=== PATIENT | female | born 1950 | race Hispanic/Latino ===

== ENCOUNTER 2018-11-25 16:58 | Emergency (ER) | payer OTHER ==
--- OUTSIDE RECORDS SUMMARY | 2018-11-25 17:00 | XMS REPORT ---
:1950 [facility] Address [address] [place] [address] Dr. Arguello [address] [place] [id number] Care Team Providers Name Role Phone Unavailable Unavailable Unavailable Problems This patient has no known problems. Allergies, Adverse Reactions, Alerts This patient has no known allergies or adverse reactions. Medications This patient has no known medications.
[2018-11-25 18:12] LABS: Basophils % 1.3 % (0-1.3); Hematocrit 34.9 % (36.0-45.0); Lymphocytes % 25.4 % (15.3-44.8); MPV 8.4 fL (7.6-11.3); RBC Red Blood Cell Count 3.72 M/uL (3.86-4.86)
--- NOTE | 2018-11-25 18:12 | RAD REPORT ---
EXAM DESCRIPTION: RAD - Chest Single View - 11/25/2018 6:05 pm CLINICAL HISTORY: COUGH Chest pain. COMPARISON: <Comparisons> FINDINGS: Portable technique limits examination quality. The lungs are grossly clear. The heart is normal in size. No displaced fractures.Sternotomy wires. IMPRESSION: No acute intrathoracic process suspected.
[2018-11-25 18:13] LABS: Protime INR 1.21
[2018-11-25 18:27] LABS: Albumin 4.1 g/dL (3.4-5.0); Magnesium 2.9 mg/dL (1.8-2.4)
[2018-11-25 18:28] LABS: Bilirubin Direct 0.2 mg/dL (0-0.2)
[2018-11-25 18:31] LABS: Potassium 5.7 mmol/L (3.5-5.1)
[2018-11-25 18:36] LABS: Bilirubin Total 0.5 mg/dL (0.2-1.0); Protein, Total 7.8 g/dL (6.4-8.2); Troponin (Emerg Dept Use Only) 0.05 ng/mL (0.0-0.045)
--- NOTE | 2018-11-25 18:44 | ER ---
Nurse's Notes [facility] Name: Renetta Dey Age: 68 yrs Sex: Female : 1950 Arrival Date: 11/25/2018 Time: 17:00 Bed 2 Private MD: Diagnosis: Hyperkalemia;Acute kidney failure;Other specified heart block-third;Bradycardia, unspecified;Type 1 diabetes mellitus;Pleural effusion in conditions classified elsewhere Presentation: 11/25 17:14 Presenting complaint: states: "she took a fall onto her bottom a few days ago aa5 and she's been weak since then and not really eating much, and she hasn't had a bowel movement in about 2 or 3 days". Pt states "I hurt all over". Pt reports she takes gabapentin and tramadol for pain. Pt's states "she's been sleeping all day over the last few days". 17:14 Transition of care: patient was not received from another setting of care. aa5 17:14 Acuity: ELEAZAR 2 aa5 17:14 Method Of Arrival: Wheelchair aa5 17:14 Onset of symptoms was November 2018. aa5 17:14 Risk Assessment: Do you want to hurt yourself or someone else? Patient reports no aa5 desire to harm self or others. Care prior to arrival: None. 18:30 Initial Sepsis Screen: Does the patient meet any 2 criteria? No. Patient's initial ph sepsis screen is negative. Does the patient have a suspected source of infection? No. Patient's initial sepsis screen is negative. Historical: - Allergies: 17:16 No Known Allergies; aa5 - PMHx: 17:16 Back pain; Diabetes - IDDM; Hypertension; CVA; aa5 - PSHx: 17:16 CABG; Carotid surgery; femoral surgery; aa5 - Immunization history:: Flu vaccine is not up to date. - Social history:: Smoking status: Patient uses tobacco products, smokes two packs cigarettes per day. - Ebola Screening: : No symptoms or risks identified at this time. Screenin:30 Abuse screen: Denies threats or abuse. Denies injuries from another. Nutritional ph screening: No deficits noted. Tuberculosis screening: No symptoms or risk factors identified. Fall Risk Fall in past 12 months (25 points). No secondary diagnosis (0 pts). IV access (20 points). Ambulatory Aid- None/Bed Rest/Nurse Assist (0 pts). Gait- Weak (10 pts.). Mental Status- Oriented to own ability (0 pts). Total Archer Fall Scale indicates High Risk Score (45 or more points). Fall prevention measures have been instituted. Side Rails Up X 2 Placed Close to Nursing Station Family Present and informed to notify staff if the need to leave the bedside As available patient and family educated on Fall Prevention Program and Strategies. Assessment: 17:45 General: Appears in no apparent distress. uncomfortable, ill, Behavior is calm, ph cooperative, appropriate for age, Denies fever. Pain: Complains of pain in lumbar area and thoracic area and "all over". Neuro: Level of Consciousness is awake, obeys commands, lethargic, Oriented to person, place, time, situation, Reports weakness in "all over". Cardiovascular: Capillary refill < 3 seconds in bilateral fingers Patient's skin is warm and dry. Rhythm is irregular. Respiratory: Airway is patent Respiratory effort is even, unlabored, Respiratory pattern is regular, symmetrical. GI: Reports constipation, Patient currently denies abdominal pain, bloody stool, diarrhea, nausea, vomiting. Derm: Skin is intact, Skin is pale. Musculoskeletal: Circulation, motion, and sensation intact. Range of motion: intact in all extremities. 19:00 General: Appears ill, Behavior is calm, cooperative, appropriate for age. Pain: ea Complains of pain in coccyx. Neuro: Level of Consciousness is awake, alert, obeys commands, Oriented to person, place, time, situation. Cardiovascular: Patient's skin is warm and dry. Respiratory: Airway is patent Respiratory effort is even, unlabored, Respiratory pattern is regular, symmetrical. Derm: Skin is intact, Skin is pale, Skin temperature is warm. Musculoskeletal: Circulation, motion, and sensation intact. 20:50 Reassessment: Patient and/or family updated on plan of care and expected duration. Pain ea level reassessed. Patient is alert, oriented x 3, equal unlabored respirations, skin warm/dry/pink. 21:40 Reassessment: Pt had bowel movement, jamarcus care provided, pt tolerated well. ea 21:50 Reassessment: Patient and/or family updated on plan of care and expected duration. Pain ea level reassessed. Patient is alert, oriented x 3, equal unlabored respirations, skin warm/dry/pink. 22:00 Reassessment: Pt had large bowel movement, jamarcus care provided. ea 22:35 Reassessment: Patient and/or family updated on plan of care and expected duration. Pain ea level reassessed. Patient is alert, oriented x 3, equal unlabored respirations, skin warm/dry/pink. [facility] at facility for transport, report given to [facility]. Pt left via EMS stretcher. Pt tolerating well. Vital Signs: 17:18 BP 113 / 59; Pulse 34; Resp 14 S; Temp 98.7(TE); Pulse Ox 97% on R/A; aa5 18:30 BP 127 / 58; Pulse 34; Resp 16; Pulse Ox 98% on R/A; ph 19:41 BP 121 / 49; Pulse 58; Resp 14; Pulse Ox 98% ; ea 20:00 BP 125 / 60; Pulse 44; Resp 18; Pulse Ox 99% ; tr5 21:00 BP 140 / 57; Pulse 68; Resp 18; Pulse Ox 100% ; tr5 22:25 BP 144 / 65; Pulse 60; Resp 18; Temp 97.6; Pulse Ox 100% on R/A; tr5 ED Course: 17:00 Patient arrived in ED. as 17:14 Arm band placed on. aa5 17:15 EKG completed in triage. Results shown to . aa5 17:18 Triage completed. aa5 17:30 Watson Montgomery MD is Attending Physician. abby 17:33 Lamar Medina, RN is Primary Nurse. ph 17:35 EKG done, by medical laboratory technician. reviewed by Watson Montgomery MD. sm3 18:03 Missed attempt(s): 20 gauge in right antecubital area. Bleeding controlled, band aid iw applied, catheter tip intact. 18:03 Initial lab(s) drawn, by me, sent to lab. Inserted saline lock: 22 gauge in left iw antecubital area, using aseptic technique. Blood collected. 18:22 XRAY Chest (1 view) In Process Unspecified. EDMS 18:30 Patient has correct armband on for positive identification. Bed in low position. Call ph light in reach. Side rails up X2. cardiac monitor on. Pulse ox on. NIBP on. 18:32 Notified ED physician of a critical lab result(s). Potassium=5.7, CO2=14, Cre=14.20. iw 19:26 Hutchinson cath inserted, using sterile technique, 16 Fr., by me, balloon inflated, to ea gravity drainage, urine specimen collected. 20:47 CT Stone Protocol In Process Unspecified. EDMS 22:01 No provider procedures requiring assistance completed. Patient transferred, IV remains ea in place. Administered Medications: 19:30 Drug: D50W 50 ml Route: IVP; Site: left jugular; jd3 20:00 Follow up: Response: No adverse reaction ea 19:30 Drug: NS 0.9% 1000 ml Route: IV; Rate: 1 bolus; Site: left jugular; jd3 21:59 Follow up: Response: No adverse reaction; IV Status: Completed infusion; IV Intake: ea 1000ml 19:31 Drug: Insulin Regular Human 10 units {Co-Signature: adrianna (Ariadna Beckman RN).} Route: IVP; jd3 Site: left jugular; 20:00 Follow up: Response: No adverse reaction ea 19:35 Drug: Calcium Gluconate 1 grams Route: IVPB; Infused Over: 20 mins; Site: left jugular; jd3 21:13 Follow up: Response: No adverse reaction; IV Status: Completed infusion; IV Intake: ea 100ml 19:39 Drug: Sodium Bicarbonate 1 amp Route: IVP; Site: left jugular; jd3 20:00 Follow up: Response: No adverse reaction ea 19:48 Drug: Kayexalate 60 grams Route: PO; jd3 20:00 Follow up: Response: No adverse reaction ea 19:50 Drug: Albuterol - atroVENT (3:1) (2.5 mg - 0.5 mg) 3 ml Route: Nebulizer; jd3 20:15 Follow up: Response: No adverse reaction ea 20:04 Drug: Glucagon 1 mg Route: IVP; Site: left jugular; jd3 22:00 Follow up: Response: No adverse reaction ea 21:30 Drug: NS 0.9% 1000 ml {Note: LEft EJ.} Route: IV; Rate: 125 ml/hr; Site: Other; ea 22:00 Follow up: IV Status: Infusion continued upon transfer ea 21:41 Drug: NS 0.9% 500 ml {Note: left EJ.} Route: IV; Rate: bolus; Site: Other; ea 22:00 Follow up: Response: No adverse reaction; IV Status: Completed infusion; IV Intake: ea 500ml 21:42 Drug: NS 0.9% 1000 ml {Note: left EJ.} Route: IV; Rate: 125 ml/hr; Site: Other; ea 21:58 Follow up: Response: No adverse reaction; IV Status: Infusion continued upon transfer ea Point of Care Testing: Blood Glucose: 18:03 Blood Glucose: 96 mg/dL; iw Ranges: Intake: 21:13 IV: 100ml; Total: 100ml. ea 21:59 IV: 1000ml; Total: 1100ml. ea 22:00 IV: 500ml; Total: 1600ml. ea Outcome: 18:42 ER care complete, transfer ordered by . abby 19:00 Instructed on the need for transfer. ea 22:37 Transferred by ground EMS to [facility], Transfer form completed. ea 22:37 Condition: stable 22:40 Patient left the ED. ea Signatures: Dispatcher [employer] EDWatson Reyes MD MD cha Martinez, Amelia as Williams, Irene, RN RN iw Calderon, Audri RN RN aa5 Lamar Medina RN Ariadna Carr ph RN Dariel Oilvo ea RN RN Lora Smalls Tommie, RN RN tr5 Ariadna Beckman RN, ea Corrections: (The following items were deleted from the chart) 17:26 17:14 Presenting complaint: states: "she took a fall onto her bottom a few days aa5 ago and she's been weak since then and not really eating much, and she hasn't had a bowel movement in about 2 or 3 days". Pt states "I hurt all over". Pt reports she takes gabapentin and tramadol for pain aa5 17:35 17:30 EKG done, 3 3 22:47 22:25 BP 144 / 65; Pulse 60bpm; Resp 18bpm; Pulse Ox 100% RA; tr5 tr5
--- NOTE | 2018-11-25 18:45 | EDPHYS ---
Physician Documentation [facility] Name: Renetta Dey Age: 68 yrs Sex: Female : 1950 Arrival Date: 11/25/2018 Time: 17:00 Bed 2 Private MD: ED Physician Watson Montgomery HPI: 11/25 18:08 This 68 yrs old Female presents to ER via Wheelchair with complaints of abby Weakness. Historical: - Allergies: 17:16 No Known Allergies; aa5 - PMHx: 17:16 Back pain; Diabetes - IDDM; Hypertension; CVA; aa5 - PSHx: 17:16 CABG; Carotid surgery; femoral surgery; aa5 - Immunization history:: Flu vaccine is not up to date. - Social history:: Smoking status: Patient uses tobacco products, smokes two packs cigarettes per day. - Ebola Screening: : No symptoms or risks identified at this time. ROS: 18:12 Constitutional: Negative for fever, chills, and weight loss, Eyes: Negative for injury, abby pain, redness, and discharge, ENT: Negative for injury, pain, and discharge, Neck: Negative for injury, pain, and swelling, Respiratory: Negative for shortness of breath, cough, wheezing, and pleuritic chest pain, Abdomen/GI: Negative for abdominal pain, nausea, vomiting, diarrhea, and constipation, : Negative for injury, bleeding, discharge, and swelling, MS/Extremity: Negative for injury and deformity, Neuro: Negative for headache, weakness, numbness, tingling, and seizure, Psych: Negative for depression, anxiety, suicide ideation, homicidal ideation, and hallucinations, Allergy/Immunology: Negative for hives, rash, and allergies, Endocrine: Negative for neck swelling, polydipsia, polyuria, polyphagia, and marked weight changes. 18:12 Cardiovascular: Positive for orthopnea, palpitations. 18:12 Back: Positive for decreased range of motion, pain at rest, pain with movement, of the thoracic area and lumbar area. 18:12 Skin: Positive for pallor. Exam: 18:12 Constitutional: This is a well developed, well nourished patient who is awake, alert, abby and in no acute distress. Head/Face: Normocephalic, atraumatic. Eyes: Pupils equal round and reactive to light, extra-ocular motions intact. Lids and lashes normal. Conjunctiva and sclera are non-icteric and not injected. Cornea within normal limits. Periorbital areas with no swelling, redness, or edema. ENT: Nares patent. No nasal discharge, no septal abnormalities noted. Tympanic membranes are normal and external auditory canals are clear. Oropharynx with no redness, swelling, or masses, exudates, or evidence of obstruction, uvula midline. Mucous membranes moist. Neck: Trachea midline, no thyromegaly or masses palpated, and no cervical lymphadenopathy. Supple, full range of motion without nuchal rigidity, or vertebral point tenderness. No Meningismus. Chest/axilla: Normal chest wall appearance and motion. Nontender with no deformity. No lesions are appreciated. Respiratory: Lungs have equal breath sounds bilaterally, clear to auscultation and percussion. No rales, rhonchi or wheezes noted. No increased work of breathing, no retractions or nasal flaring. Abdomen/GI: Soft, non-tender, with normal bowel sounds. No distension or tympany. No guarding or rebound. No evidence of tenderness throughout. Back: No spinal tenderness. No costovertebral tenderness. Full range of motion. Female : Normal external genitalia. MS/ Extremity: Pulses equal, no cyanosis. Neurovascular intact. Full, normal range of motion. Neuro: Awake and alert, GCS 15, oriented to person, place, time, and situation. Cranial nerves II-XII grossly intact. Motor strength 5/5 in all extremities. Sensory grossly intact. Cerebellar exam normal. Normal gait. Psych: Awake, alert, with orientation to person, place and time. Behavior, mood, and affect are within normal limits. 18:12 Cardiovascular: Rate: bradycardic, Rhythm: regular, Pulses: Pulses are 4+ in bilateral radial, brachial, femoral, popliteal, posterior tibial and and dorsalis pedis arteries.. Heart sounds: normal, Edema: is not appreciated, JVD: is not appreciated. Vital Signs: 17:18 BP 113 / 59; Pulse 34; Resp 14 S; Temp 98.7(TE); Pulse Ox 97% on R/A; aa5 18:30 BP 127 / 58; Pulse 34; Resp 16; Pulse Ox 98% on R/A; ph 19:41 BP 121 / 49; Pulse 58; Resp 14; Pulse Ox 98% ; ea 20:00 BP 125 / 60; Pulse 44; Resp 18; Pulse Ox 99% ; tr5 21:00 BP 140 / 57; Pulse 68; Resp 18; Pulse Ox 100% ; tr5 22:25 BP 144 / 65; Pulse 60; Resp 18; Temp 97.6; Pulse Ox 100% on R/A; tr5 Procedures: 18:16 Peripheral line: by aseptic technique a peripheral line was placed in the left external abby jugular vein. MDM: 17:30 Patient medically screened. [facility] 18:12 Data reviewed: vital signs, nurses notes, EMS record, lab test result(s), EKG, [facility] radiologic studies, CT scan, plain films. 11/25 17:31 Order name: Basic Metabolic Panel; Complete Time: 18:54 [facility] 11/25 17:31 Order name: CBC with Diff; Complete Time: 18:36 [facility] 11/25 17:31 Order name: LFT's; Complete Time: 18:54 [facility] 11/25 17:31 Order name: Magnesium; Complete Time: 18:54 [facility] 11/25 17:31 Order name: NT PRO-BNP; Complete Time: 18:54 [facility] 11/25 17:31 Order name: PT-INR; Complete Time: 18:36 [facility] 11/25 17:31 Order name: Troponin (emerg Dept Use Only); Complete Time: 18:54 [facility] 11/25 17:31 Order name: XRAY Chest (1 view); Complete Time: 18:36 [facility] 11/25 17:31 Order name: Lipase; Complete Time: 18:54 [facility] 11/25 18:10 Order name: Type And Screen; Complete Time: 19:56 [facility] 11/25 18:56 Order name: ABG; Complete Time: 20:29 [facility] 11/25 20:28 Order name: CT Stone Protocol; Complete Time: 21:08 [facility] 11/25 22:09 Order name: ABO/RH no charge EDMS 11/25 17:31 Order name: EKG; Complete Time: 17:34 [facility] 11/25 17:31 Order name: Cardiac monitoring; Complete Time: 18:10 [facility] 11/25 17:31 Order name: EKG - Nurse/Tech; Complete Time: 18:11 [facility] 11/25 18:10 Order name: EKG; Complete Time: 18:22 [facility] 11/25 18:38 Order name: EKG; Complete Time: 18:40 em1 11/25 17:31 Order name: IV Saline Lock; Complete Time: 18:11 [facility] 11/25 17:31 Order name: Labs collected and sent; Complete Time: 18:11 [facility] 11/25 17:31 Order name: O2 Per Protocol; Complete Time: 18:11 [facility] 11/25 17:31 Order name: O2 Sat Monitoring; Complete Time: 18:11 [facility] 11/25 18:10 Order name: EKG - Nurse/Tech; Complete Time: 18:10 [facility] 11/25 18:38 Order name: EKG - Nurse/Tech; Complete Time: 18:39 em1 11/25 18:40 Order name: Hutchinson; Complete Time: 19:52 [facility] 11/25 20:29 Order name: EKG - Nurse/Tech; Complete Time: 21:13 [facility] Administered Medications: 19:30 Drug: D50W 50 ml Route: IVP; Site: left jugular; jd3 20:00 Follow up: Response: No adverse reaction ea 19:30 Drug: NS 0.9% 1000 ml Route: IV; Rate: 1 bolus; Site: left jugular; jd3 21:59 Follow up: Response: No adverse reaction; IV Status: Completed infusion; IV Intake: ea 1000ml 19:31 Drug: Insulin Regular Human 10 units {Co-Signature: adrianna (Ariadna Beckman RN).} Route: IVP; jd3 Site: left jugular; 20:00 Follow up: Response: No adverse reaction ea 19:35 Drug: Calcium Gluconate 1 grams Route: IVPB; Infused Over: 20 mins; Site: left jugular; jd3 21:13 Follow up: Response: No adverse reaction; IV Status: Completed infusion; IV Intake: ea 100ml 19:39 Drug: Sodium Bicarbonate 1 amp Route: IVP; Site: left jugular; jd3 20:00 Follow up: Response: No adverse reaction ea 19:48 Drug: Kayexalate 60 grams Route: PO; jd3 20:00 Follow up: Response: No adverse reaction ea 19:50 Drug: Albuterol - atroVENT (3:1) (2.5 mg - 0.5 mg) 3 ml Route: Nebulizer; jd3 20:15 Follow up: Response: No adverse reaction ea 20:04 Drug: Glucagon 1 mg Route: IVP; Site: left jugular; jd3 22:00 Follow up: Response: No adverse reaction ea 21:30 Drug: NS 0.9% 1000 ml {Note: LEft EJ.} Route: IV; Rate: 125 ml/hr; Site: Other; ea 22:00 Follow up: IV Status: Infusion continued upon transfer ea 21:41 Drug: NS 0.9% 500 ml {Note: left EJ.} Route: IV; Rate: bolus; Site: Other; ea 22:00 Follow up: Response: No adverse reaction; IV Status: Completed infusion; IV Intake: ea 500ml 21:42 Drug: NS 0.9% 1000 ml {Note: left EJ.} Route: IV; Rate: 125 ml/hr; Site: Other; ea 21:58 Follow up: Response: No adverse reaction; IV Status: Infusion continued upon transfer ea Point of Care Testing: Blood Glucose: 18:03 Blood Glucose: 96 mg/dL; iw Ranges: Critical Glucose Levels:Adult <50 mg/dl or >400 mg/dl <40 mg/dl or >180 mg/dl Disposition: 11/25/18 18:[address] [facility]. Diagnosis are Hyperkalemia, Acute kidney failure, Other specified heart block - third, Bradycardia, unspecified, Type 1 diabetes mellitus, Pleural effusion in conditions classified elsewhere. - Reason for transfer: Higher level of care. - Accepting physician is to [facility]. - Condition is Serious. - Problem is new. - Symptoms have improved. Signatures: Dispatcher [employer] EDWatson Reyes MD MD cha Martinez, Eric em1 Holly Read RN RN aa5 Ariadna Beckman RN RN ea Davies, Jonathon, RN RN jd3 Ariadna Beckman RN, ea Corrections: (The following items were deleted from the chart) 18:57 18:42 11/25/2018 18:[address] [facility]. Diagnosis is abby Hyperkalemia; Acute kidney failure; Other specified heart block - third; Bradycardia, unspecified. Reason for transfer: Higher level of care. Accepting physician is to [facility]. Condition is Serious. Problem is new. Symptoms have improved. [facility] 21:09 18:57 11/25/2018 18:[address] [facility]. Diagnosis is abby Hyperkalemia; Acute kidney failure; Other specified heart block - third; Bradycardia, unspecified; Type 1 diabetes mellitus. Reason for transfer: Higher level of care. Accepting physician is to [facility]. Condition is Serious. Problem is new. Symptoms have improved. abby 22:40 21:09 11/25/2018 18:[address] [facility]. Diagnosis is ea Hyperkalemia; Acute kidney failure; Other specified heart block - third; Bradycardia, unspecified; Type 1 diabetes mellitus; Pleural effusion in conditions classified elsewhere. Reason for transfer: Higher level of care. Accepting physician is to [facility]. Condition is Serious. Problem is new. Symptoms have improved. abby
[2018-11-25] MEDS ORDERED: CALCIUM GLUCONATE 1gm/100 ML NS (4.65 mEq/100mL) IV ONE ×2 (19:00)
[2018-11-25] MEDS ORDERED: INSULIN -REGULAR HUMAN 50 UNIT/0.5 ML ML ONE (19:31)
[2018-11-25] MEDS ORDERED: D50W 25 GM/50 ML SYRINGE IV ONE (19:33)
[2018-11-25] MEDS ORDERED: IPRATROPIUM BROM 0.5MG/2.5ML ONE (19:33)
[2018-11-25] MEDS ORDERED: SOD POLYSTYREN SUL 15 GM/60 ML UCUP ONE (19:33)
[2018-11-25] MEDS ORDERED: ALBUTEROL 2.5 MG/3 ML NEB SOL ONE (19:33)
[2018-11-25] MEDS ORDERED: NA CHLORIDE 0.9% 1,000 ML ONE ×2 (19:34→21:38)
[2018-11-25 19:59] LABS: Arterial Blood Carboxyhemoglob 2.2 % (0-1.5); Blood Gas Oxyhemoglobin 92.7 % (94-97); Blood O2 Saturation 95.8 % (92-98.5)
[2018-11-25] MEDS ORDERED: GLUCAGON 1 MG/VIAL ONE (20:13)
--- NOTE | 2018-11-25 20:52 | RAD REPORT ---
EXAM DESCRIPTION: CT - Stone Protocol - 11/25/2018 8:43 pm CLINICAL HISTORY: Flank pain. Abdominal distention;Flank pain COMPARISON: No comparisons TECHNIQUE: Axial images were obtained without oral or IV contrast. Lack of contrast limits solid org an and vascular assessment. The [id number] spans the entirety of the system partially obscuring uppermost abdomen and lung bases. Coronal reformatted images were obtained and reviewed. All CT scans are performed using dose optimization technique as appropriate and may include automated exposure control or mA/KV adjustment according to patient size. FINDINGS: A small right pleural effusion is noted. Cholecystectomy clips. Imaged portions of the liver and spleen show no suspicious findings on non-contrast imaging. The panc reas and adrenal glands are normal. No pathologic lymphadenopathy in the abdomen or pelvis. No urinary tract stones or obstructive uropathy. No bowel obstruction, free air, free fluid or abscess. Normal appendix noted.Mild fecal retention in the colon. No significant bony abnormality. IMPRESSION: No urinary tract stones or obstructive uropathy. Small right pleural effusion.
[2018-11-25] MEDS ORDERED: NA CHLORIDE 0.9% 500 ML ONE (21:38)
--- NOTE | 2018-11-26 10:39 | EKG ---
Test Date: 2018-11-25 Test Time: 20:58:10 Grocery Buyer: TR MEASUREMENT RESULTS: Intervals: Rate: 67 DC: 240 QRSD: 94 QT: 468 QTc: 494 Caroline: P: 95 DC: 240 QRS: 78 T: 48 INTERPRETIVE STATEMENTS: Sinus rhythm with 1st degree AV block Prolonged QT Abnormal ECG Compared to ECG 11/25/2018 18:11:12 First degree AV block now present Prolonged QT interval now present Atrial fibrillation no longer present ST (T wave) deviation no longer present Electronically Signed On 11-26-18 10:38:14 CDT by Kalpesh Pierson
--- NOTE | 2018-11-26 10:40 | EKG ---
Test Date: 2018-11-25 Test Time: 18:11:12 Computer Scientist: SVETLANA MEASUREMENT RESULTS: Intervals: Rate: 38 CA: QRSD: 92 QT: 562 QTc: 446 [place]: P: CA: QRS: 79 T: 55 INTERPRETIVE STATEMENTS: Atrial fibrillation with slow ventricular response Nonspecific ST abnormality, probably digitalis effect Abnormal ECG Compared to ECG 11/25/2018 17:18:38 Right-axis deviation no longer present ST (T wave) deviation still present Electronically Signed On 11-26-18 10:38:19 CDT by Kalpesh Pierson
--- NOTE | 2018-11-26 10:40 | EKG ---
Test Date: 2018-11-25 Test Time: 17:18:38 Purchasing Administrative Assistant: PRANEETH MEASUREMENT RESULTS: Intervals: Rate: 36 [place]: QRSD: 82 QT: 572 QTc: 442 [place]: P: VA: QRS: 90 T: 69 INTERPRETIVE STATEMENTS: Atrial fibrillation with slow ventricular response Rightward axis Nonspecific ST abnormality Abnormal ECG Compared to ECG 07/04/2007 09:29:08 Right-axis deviation now present Sinus rhythm no longer present ST (T wave) deviation still present Electronically Signed On 11-26-18 10:38:23 CDT by Kalpesh Pierson
== END 2018-11-25 22:40 | disposition short-term general hospital (02) ==
LOC: ER 16:58
PROC: 05HQ33Z Insertion of Infusion Device into Left External Jugular Vein, Percutaneous Approach (ICD-10-PCS; principal; 2018-11-25)
DX: E87.5 Hyperkalemia (principal); I45.5 Other specified heart block; N17.9 Acute kidney failure, unspecified; R00.1 Bradycardia, unspecified; J91.8 Pleural effusion in other conditions classified elsewhere; E10.9 Type 1 diabetes mellitus without complications; I10 Essential (primary) hypertension; F17.210 Nicotine dependence, cigarettes, uncomplicated; Z95.1 Presence of aortocoronary bypass graft
CPT/HCPCS: 36415; 51702; 71045; 74176; 76377; 80048; 80076; 82805; 82962; 83690; 83735; 83880; 84484; 85025; 85610; 86850; 86900; 86901; 93005; 94640; 96361; 96365; 96366; 96375; 99285; J0610; J1610; J7030

== ENCOUNTER 2019-01-13 11:27 | Emergency (ER) | payer OTHER ==
--- OUTSIDE RECORDS SUMMARY | 2019-01-13 11:30 | XMS REPORT | Clinical Summary ---
:1950 Author Organization [facility] Address [address] [place] [address] Care Team Providers Name Role Phone Pcp, No Primary Care Provider Unavailable Allergies No Known Allergies Medications Medication Sig Dispensed Refills Start Date End Date Status cholecalciferol, Take 25,000 0 Active vitamin D3, 50,000 Units by mouth unit Tab once a week. zolpidem (AMBIEN) Take 10 mg by 0 Active 10 mg tablet mouth every night as needed for Insomnia. rosuvastatin Take 20 mg by 0 Active (CRESTOR) 20 MG mouth daily. tablet traMADol (ULTRAM) Take 50 mg by 0 Active 50 mg mouth every 6 tabletIndications: (six) hours as post fall at home needed for Pain. clopidogrel Take 75 mg by 0 Active (PLAVIX) 75 mg mouth daily. tablet amLODIPine Take 1 tablet 30 tablet 11 12/06/2018 Active (NORVASC) 10 MG (10 mg total) 0 tablet by mouth daily. gabapentin Take 0.5 60 tablet 0 12/05/2018 Active (NEURONTIN) 600 MG tablets (300 mg tablet total) by mouth 2 (two) times daily. apixaban (ELIQUIS) Take 1 tablet 60 tablet 1 12/05/2018 Active 5 mg Tab tablet (5 mg total) by mouth 2 (two) times daily. famotidine (PEPCID) Take 1 tablet 60 tablet 0 12/05/2018 Active 20 MG tablet (20 mg total) by mouth 2 (two) times daily. folic Take 1 tablet 30 tablet 0 12/06/2018 Active acid-multivitamins by mouth daily. (NEPHRO-SHU) 0.8 mg Tab tablet levothyroxine Take 1 tablet 30 tablet 1 12/06/2018 Active (SYNTHROID, (25 mcg total) 0 LEVOTHROID) 25 MCG by mouth Every tablet morning on an empty stomach. melatonin 5 mg Tab Take 1 tablet 30 tablet 0 12/05/2018 Active tablet (5 mg total) by mouth nightly. metoprolol Take 1 tablet 60 tablet 1 12/05/2018 Active (LOPRESSOR) 100 MG (100 mg total) 0 tablet by mouth 2 (two) times daily. nystatin Apply topically 30 g 0 12/05/2018 Active (MYCOSTATIN) 2 (two) times 0 100,000 unit/gram daily. ointment gabapentin Take 600 mg by 0 Discontinued (NEURONTIN) 600 MG mouth 3 (three) 9 tablet times daily. nebivolol Take 10 mg by 0 Discontinued (BYSTOLIC) 10 MG mouth daily. 9 tablet metFORMIN Take 1,000 mg 0 Discontinued (GLUCOPHAGE) 1000 by mouth daily 9 MG tablet with breakfast. aspirin 325 MG Take 325 mg by 0 Discontinued tablet mouth daily. 9 candesartan-hydroch Take 0.5 0 Discontinued lorothiazide tablets by 9 (ATACAND HCT) mouth daily. 16-12.5 mg per tablet dronabinol Take 1 capsule 60 capsule 0 12/05/2018 (MARINOL) 5 MG (5 mg total) by 9 capsule mouth 2 (two) times daily for 30 days. Max Daily Amount: 10 mg zinc sulfate Take 1 capsule 10 capsule 0 12/06/2018 (ZINCATE) 220 (50) (220 mg total) 9 mg capsule by mouth daily for 10 days. Active Problems Problem Noted Date Third degree heart block 11/26/2018 Acute renal failure superimposed on chronic kidney disease 11/26/2018 Anuria 11/26/2018 Acute tubular necrosis 11/26/2018 Hyperkalemia 11/26/2018 Metabolic acidemia 11/26/2018 Herpes zoster 11/26/2018 ESRD (end stage renal disease) Encounters Date Type Specialty Care Team Description 11/29/2018 Travel 11/26/2018 Orders Only General Internal Medicine 11/25/2018 - Hospital Encounter Cardiology Arianna Adame Acute renal failure with acute tubular necrosis superimposed on chronic kidney disease, unspecified CKD stage (HCC); 12/05/2018 MD José Herpes zoster without complication; Parminder Calderon Acute cystitis without hematuria; MD José AIN (acute interstitial nephritis); [place], Metabolic acidosis; Jackson Hilario MD Hypothyroidism, unspecified type; Iron deficiency anemia secondary to inadequate dietary iron intake; Atrial fibrillation with RVR (HCC) after 01/12/2018 Immunizations Name Dates Previously Given Next Due Pneumococcal Conjugate (Prevnar) 13-Valent 11/29/2018 Social History Tobacco Use Types Packs/Day Years Used Date Former Smoker 1 1 Quit: 11/22/2018 Smokeless Tobacco: Never Used Tobacco Cessation: Counseling Given: Yes Alcohol Use Drinks/Week oz/Week Comments No Alcohol Habits Answer Date Recorded How often do you have a drink containing alcohol? Never 11/29/2018 How many drinks containing alcohol do you have on a typical Not asked day when you are drinking? How often do you have six or more drinks on one occasion? Not asked Sex Assigned at Date Recorded Not on file Job Start Date Occupation Industry Not on file Not on file Not on file Travel History Travel Start Travel End No recent travel history available. Last Filed Vital Signs Vital Sign Reading Time Taken Blood Pressure 168/72 12/05/2018 3:00 PM CDT Pulse 69 12/05/2018 3:00 PM CDT Temperature 36.9 C (98.4 F) 12/05/2018 3:00 PM CDT Respiratory Rate 20 12/05/2018 3:00 PM CDT Oxygen Saturation 99% 12/05/2018 3:00 PM CDT Inhaled Oxygen Concentration 21% 12/03/2018 2:57 AM CDT Weight 81.3 kg (179 lb 3.7 oz) 12/04/2018 9:20 AM CDT Height 160 cm (5' 3") 11/26/2018 2:15 AM CDT Body Mass Index 31.75 12/04/2018 9:20 AM CDT Plan of Treatment Not on file Procedures Procedure Name Priority Date/Time Associated Comments Diagnosis RHYTHM STRIP - SCAN 12/09/2018 11:22 AM CDT RHYTHM STRIP - SCAN 12/06/2018 11:12 AM CDT POCT-GLUCOSE METER Routine 12/05/2018 12:27 Results for this PM CDT procedure are in the results section. POCT-GLUCOSE METER Routine 12/05/2018 7:26 Results for this AM CDT procedure are in the results section. CBC W/PLT COUNT & AUTO Routine 12/05/2018 5:42 Results for this DIFFERENTIAL AM CDT procedure are in the results section. BASIC METABOLIC PANEL Routine 12/05/2018 5:42 Results for this (7) AM CDT procedure are in the results section. APTT Routine 12/05/2018 5:42 Results for this AM CDT procedure are in the results section. CBC W/PLT COUNT & AUTO Routine 12/05/2018 5:42 Results for this DIFFERENTIAL AM CDT procedure are in the results section. PHOSPHORUS Routine 12/05/2018 5:42 Results for this AM CDT procedure are in the results section. MAGNESIUM Routine 12/05/2018 5:42 Results for this AM CDT procedure are in the results section. POCT-GLUCOSE METER Routine 12/04/2018 9:41 Results for this PM CDT procedure are in the results section. POCT-GLUCOSE METER Routine 12/04/2018 5:58 Results for this PM CDT procedure are in the results section. POCT-GLUCOSE METER Routine 12/04/2018 12:50 Results for this PM CDT procedure are in the results section. POCT-GLUCOSE METER Routine 12/04/2018 8:52 Results for this AM CDT procedure are in the results section. CBC W/PLT COUNT & AUTO Routine 12/04/2018 4:28 Results for this DIFFERENTIAL AM CDT procedure are in the results section. APTT Routine 12/04/2018 4:28 Results for this AM CDT procedure are in the results section. COMPREHENSIVE Routine 12/04/2018 4:28 Results for this METABOLIC PANEL AM CDT procedure are in the results section. CALCIUM, IONIZED Routine 12/04/2018 4:28 Results for this AM CDT procedure are in the results section. CBC W/PLT COUNT & AUTO Routine 12/04/2018 4:28 Results for this DIFFERENTIAL AM CDT procedure are in the results section. PHOSPHORUS Routine 12/04/2018 4:28 Results for this AM CDT procedure are in the results section. MAGNESIUM Routine 12/04/2018 4:28 Results for this AM CDT procedure are in the results section. POCT-GLUCOSE METER Routine 12/03/2018 9:20 Results for this PM CDT procedure are in the results section. POCT-GLUCOSE METER Routine 12/03/2018 6:16 Results for this PM CDT procedure are in the results section. BASIC METABOLIC PANEL Routine 12/03/2018 5:46 Results for this (7) PM CDT procedure are in the results section. POCT-GLUCOSE METER Routine 12/03/2018 9:12 Results for this AM CDT procedure are in the results section. CBC W/PLT COUNT & AUTO Routine 12/03/2018 4:25 Results for this DIFFERENTIAL AM CDT procedure are in the results section. COMPREHENSIVE Routine 12/03/2018 4:25 Results for this METABOLIC PANEL AM CDT procedure are in the results section. CALCIUM, IONIZED Routine 12/03/2018 4:25 Results for this AM CDT procedure are in the results section. CBC W/PLT COUNT & AUTO Routine 12/03/2018 4:25 Results for this DIFFERENTIAL AM CDT procedure are in the results section. PHOSPHORUS Routine 12/03/2018 4:25 Results for this AM CDT procedure are in the results section. MAGNESIUM Routine 12/03/2018 4:25 Results for this AM CDT procedure are in the results section. APTT Routine 12/03/2018 4:25 Results for this AM CDT procedure are in the results section. POCT-GLUCOSE METER Routine 12/02/2018 9:27 Results for this PM CDT procedure are in the results section. BASIC METABOLIC PANEL Routine 12/02/2018 5:36 Results for this (7) PM CDT procedure are in the results section. APTT Routine 12/02/2018 12:28 Results for this PM CDT procedure are in the results section. POCT-GLUCOSE METER Routine 12/02/2018 12:09 Results for this PM CDT procedure are in the results section. CALCIUM, IONIZED Routine 12/02/2018 6:03 Results for this AM CDT procedure are in the results section. CBC W/PLT COUNT & AUTO Routine 12/02/2018 6:02 Results for this DIFFERENTIAL AM CDT procedure are in the results section. APTT Routine 12/02/2018 6:02 Results for this AM CDT procedure are in the results section. COMPREHENSIVE Routine 12/02/2018 6:02 Results for this METABOLIC PANEL AM CDT procedure are in the results section. CBC W/PLT COUNT & AUTO Routine 12/02/2018 6:02 Results for this DIFFERENTIAL AM CDT procedure are in the results section. PHOSPHORUS Routine 12/02/2018 6:02 Results for this AM CDT procedure are in the results section. MAGNESIUM Routine 12/02/2018 6:02 Results for this AM CDT procedure are in the results section. CBC (HEMOGRAM ONLY) Routine 12/02/2018 6:02 Results for this AM CDT procedure are in the results section. APTT Routine 12/01/2018 11:47 Results for this PM CDT procedure are in the results section. POCT-GLUCOSE METER Routine 12/01/2018 9:12 Results for this PM CDT procedure are in the results section. APTT Routine 12/01/2018 5:57 Results for this PM CDT procedure are in the results section. BASIC METABOLIC PANEL Routine 12/01/2018 5:57 Results for this (7) PM CDT procedure are in the results section. POCT-GLUCOSE METER Routine 12/01/2018 5:20 Results for this PM CDT procedure are in the results section. APTT Routine 12/01/2018 11:48 Results for this AM CDT procedure are in the results section. POCT-GLUCOSE METER Routine 12/01/2018 11:40 Results for this AM CDT procedure are in the results section. POCT-GLUCOSE METER Routine 12/01/2018 9:02 Results for this AM CDT procedure are in the results section. CBC W/PLT COUNT & AUTO Routine 12/01/2018 3:37 Results for this DIFFERENTIAL AM CDT procedure are in the results section. COMPREHENSIVE Routine 12/01/2018 3:37 Results for this METABOLIC PANEL AM CDT procedure are in the results section. CALCIUM, IONIZED Routine 12/01/2018 3:37 Results for this AM CDT procedure are in the results section. VITAMIN B12 AND FOLATE Routine 12/01/2018 3:37 Results for this AM CDT procedure are in the results section. CBC W/PLT COUNT & AUTO Routine 12/01/2018 3:37 Results for this DIFFERENTIAL AM CDT procedure are in the results section. PHOSPHORUS Routine 12/01/2018 3:37 Results for this AM CDT procedure are in the results section. MAGNESIUM Routine 12/01/2018 3:37 Results for this AM CDT procedure are in the results section. EOSINOPHIL SMEAR, Routine 12/01/2018 3:37 Results for this URINE AM CDT procedure are in the results section. CREATININE, RANDOM Routine 12/01/2018 3:37 Results for this URINE AM CDT procedure are in the results section. PROTEIN, RANDOM URINE Routine 12/01/2018 3:37 Results for this AM CDT procedure are in the results section. URINALYSIS W/ Routine 12/01/2018 3:37 Results for this MICROSCOPIC AM CDT procedure are in the results section. RPR Routine 12/01/2018 3:36 Results for this AM CDT procedure are in the results section. APTT Routine 12/01/2018 3:36 Results for this AM CDT procedure are in the results section. POCT-GLUCOSE METER Routine 11/30/2018 9:11 Results for this PM CDT procedure are in the results section. POCT-GLUCOSE METER Routine 11/30/2018 6:09 Results for this PM CDT procedure are in the results section. ECG 12-LEAD Routine 11/30/2018 5:38 PM CDT Procedure Note - Interface, External Ris In - 11/30/2018 5:52 PM CDT Ventricular Rate 82 BPM Atrial Rate 82 BPM P-R Interval 142 ms QRS Duration 74 ms Q-T Interval 432 ms QTC Calculation(Bazett) 504 ms P [place] 93 degrees R [place] 69 degrees T [place] 45 degrees Normal sinus rhythm Nonspecific ST and T wave abnormality Abnormal ECG When compared with ECG of 29-NOV-2018 09:35, Sinus rhythm has replaced Atrial fibrillation ECG 12-LEAD Routine 11/30/2018 5:38 PM CDT BASIC METABOLIC PANEL (7) Routine 11/30/2018 5:36 PM CDT POCT-GLUCOSE METER Routine 11/30/2018 1:37 PM CDT POCT-GLUCOSE METER Routine 11/30/2018 8:30 AM CDT B-TYPE NATRIURETIC FACTOR Routine 11/30/2018 1:15 AM CDT Results for this (BNP) procedure are in the results section. CBC W/PLT COUNT & AUTO Routine 11/30/2018 1:14 AM CDT Results for this DIFFERENTIAL procedure are in the results section. COMPREHENSIVE METABOLIC Routine 11/30/2018 1:14 AM CDT Results for this PANEL procedure are in the results section. CALCIUM, IONIZED Routine 11/30/2018 1:14 AM CDT CBC W/PLT COUNT & AUTO Routine 11/30/2018 1:14 AM CDT Results for this DIFFERENTIAL procedure are in the results section. PHOSPHORUS Routine 11/30/2018 1:14 AM CDT MAGNESIUM Routine 11/30/2018 1:14 AM CDT TROPONIN I Routine 11/30/2018 1:14 AM CDT APTT Routine 11/30/2018 1:13 AM CDT POCT-GLUCOSE METER Routine 11/29/2018 9:27 PM CDT ECHOCARDIOGRAM REPORT - SCAN 11/29/2018 9:10 PM CDT TROPONIN I Routine 11/29/2018 6:12 PM CDT POCT-GLUCOSE METER Routine 11/29/2018 5:51 PM CDT BASIC METABOLIC PANEL (7) Routine 11/29/2018 4:44 PM CDT POCT-GLUCOSE METER Routine 11/29/2018 1:00 PM CDT TROPONIN I Routine 11/29/2018 11:27 AM CDT APTT Routine 11/29/2018 11:27 AM CDT ECG 12-LEAD Routine 11/29/2018 9:35 AM CDT Procedure Note - Interface, External Ris In - 11/29/2018 9:51 AM CDT Ventricular Rate 103 BPM Atrial Rate 96 BPM QRS Duration 80 ms Q-T Interval 392 ms QTC Calculation(Bazett) 513 ms R [place] 69 degrees T [place] 164 degrees Atrial fibrillation with rapid ventricular response with premature ventricular or aberrantly conducted complexes Nonspecific ST and T wave abnormality Abnormal ECG When compared with ECG of 28-NOV-2018 03:23, No significant change was found ECG 12-LEAD Routine 11/29/2018 9:35 AM CDT POCT-GLUCOSE METER Routine 11/29/2018 7:35 AM CDT APTT STAT 11/29/2018 4:39 AM CDT CALCIUM, IONIZED Routine 11/29/2018 1:40 AM CDT CBC W/PLT COUNT & AUTO Routine 11/29/2018 1:39 AM CDT Results for this DIFFERENTIAL procedure are in the results section. COMPREHENSIVE METABOLIC Routine 11/29/2018 1:39 AM CDT Results for this PANEL procedure are in the results section. CBC W/PLT COUNT & AUTO Routine 11/29/2018 1:39 AM CDT Results for this DIFFERENTIAL procedure are in the results section. PHOSPHORUS Routine 11/29/2018 1:39 AM CDT MAGNESIUM Routine 11/29/2018 1:39 AM CDT APTT Routine 11/29/2018 1:39 AM CDT POCT-GLUCOSE METER Routine 11/28/2018 8:52 PM CDT POCT-GLUCOSE METER Routine 11/28/2018 8:06 PM CDT APTT Routine 11/28/2018 7:05 PM CDT BASIC METABOLIC PANEL (7) Routine 11/28/2018 4:16 PM CDT POCT-GLUCOSE METER Routine 11/28/2018 1:08 PM CDT APTT Routine 11/28/2018 9:01 AM CDT POCT-GLUCOSE METER Routine 11/28/2018 8:31 AM CDT CBC W/PLT COUNT & AUTO Routine 11/28/2018 3:48 AM CDT Results for this DIFFERENTIAL procedure are in the results section. COMPREHENSIVE METABOLIC Routine 11/28/2018 3:48 AM CDT Results for this PANEL procedure are in the results section. CALCIUM, IONIZED Routine 11/28/2018 3:48 AM CDT CBC W/PLT COUNT & AUTO Routine 11/28/2018 3:48 AM CDT Results for this DIFFERENTIAL procedure are in the results section. PHOSPHORUS Routine 11/28/2018 3:48 AM CDT MAGNESIUM Routine 11/28/2018 3:48 AM CDT ECG 12-LEAD Routine 11/28/2018 3:23 AM CDT Procedure Note - Interface, External Ris In - 11/28/2018 3:41 AM CDT Ventricular Rate 102 BPM Atrial Rate 127 BPM QRS Duration 84 ms Q-T Interval 390 ms QTC Calculation(Bazett) 508 ms R [place] 67 degrees T [place] 179 degrees Atrial fibrillation with rapid ventricular response Nonspecific ST and T wave abnormality Abnormal ECG When compared with ECG of 26-NOV-2018 00:48, Atrial fibrillation has replaced Sinus rhythm Vent. rate has increased BY [address] now depressed in Lateral leads Nonspecific T wave abnormality now evident in Inferior leads T wave inversion now evident in Lateral leads ECG 12-LEAD STAT 11/28/2018 3:23 AM CDT POCT-GLUCOSE METER Routine 11/27/2018 9:55 PM CDT TRANSFUSION SERVICE REPORT 11/27/2018 6:02 PM CDT - SCAN POCT-GLUCOSE METER Routine 11/27/2018 5:56 PM CDT BASIC METABOLIC PANEL (7) Routine 11/27/2018 4:15 PM CDT POCT-GLUCOSE METER Routine 11/27/2018 11:56 AM CDT 2D ECHO W/ DOPPLER Routine 11/27/2018 9:50 AM CDT Results for this (CW/PW/COLOR) procedure are in the results section. POCT-GLUCOSE METER Routine 11/27/2018 4:17 AM CDT CBC W/PLT COUNT & AUTO Routine 11/27/2018 3:43 AM CDT Results for this DIFFERENTIAL procedure are in the results section. T4, FREE Routine 11/27/2018 3:43 AM CDT COMPLEMENT COMPONENT C3 Routine 11/27/2018 3:43 AM CDT COMPLEMENT COMPONENT C4 Routine 11/27/2018 3:43 AM CDT URIC ACID Routine 11/27/2018 3:43 AM CDT TSH/FREE T4 IF INDICATED Routine 11/27/2018 3:43 AM CDT HEPATITIS PANEL, ACUTE Routine 11/27/2018 3:43 AM CDT RETICULOCYTE COUNT Routine 11/27/2018 3:43 AM CDT FERRITIN Routine 11/27/2018 3:43 AM CDT IRON, TIBC, % SAT. (WITHOUT Routine 11/27/2018 3:43 AM CDT Results for this FERRITIN) procedure are in the results section. B-TYPE NATRIURETIC FACTOR Routine 11/27/2018 3:43 AM CDT Results for this (BNP) procedure are in the results section. COMPREHENSIVE METABOLIC Routine 11/27/2018 3:43 AM CDT Results for this PANEL procedure are in the results section. CALCIUM, IONIZED Routine 11/27/2018 3:43 AM CDT PHOSPHORUS Routine 11/27/2018 3:43 AM CDT MAGNESIUM Routine 11/27/2018 3:43 AM CDT CREATINE KINASE (CK) Routine 11/27/2018 3:43 AM CDT CBC W/PLT COUNT & AUTO Routine 11/27/2018 3:43 AM CDT Results for this DIFFERENTIAL procedure are in the results section. BASIC METABOLIC PANEL (7) Routine 11/26/2018 8:07 PM CDT POCT-GLUCOSE METER Routine 11/26/2018 5:29 PM CDT URINE IMMUNOFIXATION, AP Routine 11/26/2018 3:01 PM CDT Results for this RANDOM procedure are in the results section. URINE PROTEIN AP Routine 11/26/2018 3:01 PM CDT Results for this ELECTROPHORESIS, RANDOM procedure are in the results section. EOSINOPHIL SMEAR, URINE Routine 11/26/2018 3:01 PM CDT CREATININE, RANDOM URINE Routine 11/26/2018 3:01 PM CDT PROTEIN, RANDOM URINE Routine 11/26/2018 3:01 PM CDT SODIUM, RANDOM URINE Routine 11/26/2018 3:01 PM CDT URINALYSIS W/ MICROSCOPIC Routine 11/26/2018 3:01 PM CDT ANTI-NEUTROPHIL CYTOPLASMIC Routine 11/26/2018 2:13 PM CDT Results for this AB (ANCA) procedure are in the results section. ANTI-NUCLEAR ANTIBODY (JUAN) Routine 11/26/2018 2:13 PM CDT RHEUMATOID FACTOR AB, Routine 11/26/2018 2:13 PM CDT Results for this REFLEX TO TITER procedure are in the results section. PROTEIN ELECTROPHORESIS, AP Routine 11/26/2018 2:13 PM CDT Results for this SERUM procedure are in the results section. US RENAL COMPLETE STAT 11/26/2018 1:45 PM CDT HEMODIALYSIS INPATIENT Routine 11/26/2018 12:26 PM CDT POCT-GLUCOSE METER Routine 11/26/2018 11:22 AM CDT BASIC METABOLIC PANEL (7) Routine 11/26/2018 11:20 AM CDT URINE CULTURE Routine 11/26/2018 11:20 AM CDT MAGNESIUM Routine 11/26/2018 5:49 AM CDT BASIC METABOLIC PANEL (7) Routine 11/26/2018 5:49 AM CDT BLOOD GAS, VENOUS Routine 11/26/2018 5:49 AM CDT HEPATITIS PANEL, ACUTE Routine 11/26/2018 5:49 AM CDT TROPONIN I Routine 11/26/2018 5:49 AM CDT POCT-GLUCOSE METER Routine 11/26/2018 5:46 AM CDT UREA NITROGEN, RANDOM URINE Routine 11/26/2018 4:41 AM CDT CREATININE, RANDOM URINE Routine 11/26/2018 4:41 AM CDT SODIUM, RANDOM URINE Routine 11/26/2018 4:41 AM CDT URINALYSIS W/ MICROSCOPIC Routine 11/26/2018 4:41 AM CDT XR CHEST 1 VIEW STAT 11/26/2018 3:29 AM CDT Results for this PORTABLE/BEDSIDE procedure are in the results section. FERRITIN Routine 11/26/2018 3:19 AM CDT IRON, TIBC, % SAT. (WITHOUT Routine 11/26/2018 3:19 AM CDT Results for this FERRITIN) procedure are in the results section. PTH, INTACT Routine 11/26/2018 3:19 AM CDT BLOOD GAS, VENOUS Routine 11/26/2018 3:19 AM CDT HIV-1 ANTIGEN WITH HIV-1/2 Routine 11/26/2018 3:19 AM CDT Results for this ANTIBODY procedure are in the results section. ABORH, MANUAL STAT 11/26/2018 1:18 AM CDT XR CHEST 1 VIEW STAT 11/26/2018 1:00 AM CDT Results for this PORTABLE/BEDSIDE procedure are in the results section. LIPID PANEL Routine 11/26/2018 12:58 AM CDT HEMOGLOBIN A1C Routine 11/26/2018 12:58 AM CDT T4, FREE Routine 11/26/2018 12:49 AM CDT TSH/FREE T4 IF INDICATED Routine 11/26/2018 12:49 AM CDT ECG 12-LEAD Routine 11/26/2018 12:48 AM CDT Procedure Note - Interface, External Ris In - 11/26/2018 1:02 AM CDT Ventricular Rate 62 BPM Atrial Rate 62 BPM P-R Interval 216 ms QRS Duration 92 ms Q-T Interval 490 ms QTC Calculation(Bazett) 497 ms P [place] 74 degrees R [place] 76 degrees T [place] 65 degrees Sinus rhythm with 1st degree A-V block Prolonged QT Abnormal ECG No previous ECGs available ECG 12-LEAD STAT 11/26/2018 12:48 AM CDT LACTIC ACID, VENOUS Routine 11/26/2018 12:45 AM CDT CREATINE KINASE (CK) Routine 11/26/2018 12:45 AM CDT PT/APTT Routine 11/26/2018 12:45 AM CDT PROTHROMBIN TIME/INR Routine 11/26/2018 12:45 AM CDT CBC W/PLT COUNT & AUTO Routine 11/26/2018 12:43 AM CDT Results for this DIFFERENTIAL procedure are in the results section. TYPE AND SCREEN, AUTOMATED Routine 11/26/2018 12:43 AM CDT PHOSPHORUS Routine 11/26/2018 12:43 AM CDT MAGNESIUM Routine 11/26/2018 12:43 AM CDT TROPONIN I Routine 11/26/2018 12:43 AM CDT B-TYPE NATRIURETIC FACTOR Routine 11/26/2018 12:43 AM CDT Results for this (BNP) procedure are in the results section. COMPREHENSIVE METABOLIC Routine 11/26/2018 12:43 AM CDT Results for this PANEL procedure are in the results section. CBC W/PLT COUNT & AUTO Routine 11/26/2018 12:43 AM CDT Results for this DIFFERENTIAL procedure are in the results section. after 01/12/2018 Results RHYTHM STRIP - SCAN (12/09/2018 11:22 AM CDT)Only the most recent of2 resultswithin the time period is included. Narrative Performed At POC-Glucose meter (12/05/2018 12:27 PM CDT)Only the most recent of34 resultswithin the time period is included. POC-Glucose Meter 178 (H)Comment: TESTED AT 70 - 110 mg/dL [facility] [address] [place] [address] Specimen Blood Performing Organization Address City/State/Zipcode Phone Number [facility] [address] [place] [address] CENTER CBC with platelet count + automated diff (12/05/2018 5:42 AM CDT)Only the most recent of10 resultswithin the time period is included. WBC 7.6 3.5 - 10.5 K/L [facility] RBC 3.08 (L) 3.93 - 5.22 M/L [facility] Hemoglobin 9.3 (L) 11.2 - 15.7 GM/DL [facility] Hematocrit 30.2 (L) 34.1 - 44.9 % [facility] MCV 98.1 (H) 79.4 - 94.8 fL [facility] MCH 30.2 25.6 - 32.2 pg [facility] MCHC 30.8 (L) 32.2 - 35.5 GM/DL [facility] RDW 14.3 11.7 - 14.4 % [facility] Platelets 299 150 - 450 K/CU MM [facility] MPV 9.7 9.4 - 12.3 fL [facility] nRBC 0 0 - 0 /100 WBC [facility] % Neutros 71 % [facility] % Lymphs 17 % [facility] % Monos 8 % [facility] % Eos 2 % [facility] % Baso 1 % [facility] # Neutros 5.43 1.56 - 6.13 K/L [facility] # Lymphs 1.27 1.18 - 3.74 K/L [facility] # Monos 0.63 (H) 0.24 - 0.36 K/L [facility] # Eos 0.12 0.04 - 0.36 K/L [facility] # Baso 0.07 0.01 - 0.08 K/L [facility] Immature Granulocytes-Relative 1 0 - 1 % [facility] Specimen Blood Performing Organization Address City/[facility] Phone Number [address] [address] CENTER aPTT (12/05/2018 5:42 AM CDT)Only the most recent of15 resultswithin the time period is included. PTT 27.7 22.5 - 36.0 seconds [facility] Specimen Blood Performing Organization Address [facility] [place] [address] CENTER Phosphorus (12/05/2018 5:42 AM CDT)Only the most recent of10 resultswithin the time period is included. Phosphorus 3.4 2.3 - 4.7 mg/dL [facility] Specimen Blood Performing Organization Address City/[facility] [place] [address] [phone] [place] Magnesium (12/05/2018 5:42 AM CDT)Only the most recent of11 resultswithin the time period is included. Magnesium 1.8 1.6 - 2.6 mg/dL [facility] Specimen Blood Performing Organization Address City/[facility] Phone Number [address] [address] [phone] CENTER Basic Metabolic Panel (12/05/2018 5:42 AM CDT)Only the most recent of11 resultswithin the time period is included. Sodium 140 136 - 145 meq/L [facility] Potassium 3.7 3.5 - 5.1 meq/L [facility] Chloride 108 (H) 98 - 107 meq/L [facility] CO2 24 22 - 29 meq/L [facility] BUN 31 (H) 7 - 21 mg/dL [facility] Creatinine 1.96 (H) 0.57 - 1.25 mg/dL [facility] Glucose 139 (H) 70 - 105 mg/dL [facility] Calcium 9.9 8.4 - 10.2 mg/dL [facility] EGFR 25Comment: ESTIMATED GFR IS mL/min/1.73 sq m [facility] NOT ACCURATE [facility] CLEARANCE IN PREDICTING GLOMERULAR FILTRATION RATE. ESTIMATED GFR IS NOT APPLICABLE FOR DIALYSIS PATIENTS. Specimen Blood Performing Organization Address City/State/Zipcode Phone Number [address] [address] [phone] [place] Calcium, Ionized (12/04/2018 4:28 AM CDT)Only the most recent of8 resultswithin the time period is included. Calcium, Ion 1.17 1.12 - 1.27 mmol/L [facility] pH, Blood 7.43 [facility] Specimen Blood Performing Organization Address City/State/Zipcode Phone Number [phone] [place] [address] [phone] [place] Comprehensive metabolic panel (12/04/2018 4:28 AM CDT)Only the most recent of9 resultswithin the time period is included. Protein, Total 6.6 6.0 - 8.3 gm/dL [facility] Albumin 3.9 3.5 - 5.0 g/dL [facility] Alkaline Phosphatase 64 40 - 150 U/L [facility] Total Bilirubin 0.4 0.2 - 1.2 mg/dL [facility] Sodium 139 136 - 145 meq/L [facility] Potassium 3.2 (L) 3.5 - 5.1 meq/L [facility] Chloride 106 98 - 107 meq/L [facility] CO2 24 22 - 29 meq/L [facility] BUN 34 (H) 7 - 21 mg/dL [facility] Creatinine 2.31 (H) 0.57 - 1.25 mg/dL [facility] Glucose 142 (H) 70 - 105 mg/dL [facility] Calcium 9.3 8.4 - 10.2 mg/dL [facility] AST 25 5 - 34 U/L [facility] ALT 29 6 - 55 U/L [facility] EGFR 21Comment: ESTIMATED GFR mL/min/1.73 sq m [facility] IS NOT ACCURATE [facility] CREATININE CLEARANCE IN PREDICTING GLOMERULAR FILTRATION RATE. ESTIMATED GFR IS NOT APPLICABLE FOR DIALYSIS PATIENTS. Specimen Blood Performing Organization Address City/State/Zipcode Phone Number [facility] [address] [place] [address] CENTER CBC (hemogram only) (12/02/2018 6:02 AM CDT) WBC 6.4 3.5 - 10.5 K/L [facility] RBC 2.86 (L) 3.93 - 5.22 M/L [facility] Hemoglobin 8.8 (L) 11.2 - 15.7 GM/DL [facility] Hematocrit 27.7 (L) 34.1 - 44.9 % [facility] MCV 96.9 (H) 79.4 - 94.8 fL [facility] MCH 30.8 25.6 - 32.2 pg [facility] MCHC 31.8 (L) 32.2 - 35.5 GM/DL [facility] RDW 13.9 11.7 - 14.4 % [facility] Platelets 261 150 - 450 K/CU MM [facility] MPV 9.1 (L) 9.4 - 12.3 fL [facility] nRBC 0 0 - 0 /100 WBC [facility] Specimen Blood Performing Organization Address [facility] Phone Number [address] [address] [place] Vitamin B12 and Folate (12/01/2018 3:37 AM CDT) Vitamin B12 455 213 - 816 pg/mL [facility] Folate 9.9 >=7.0 ng/mL [facility] Specimen Blood Performing Organization Address [facility] Phone Number [address] [address] [phone] [place] Protein, random urine (12/01/2018 3:37 AM CDT)Only the most recent of2 resultswithin the time period is included. Protein, Urine 44 (H) 0 - 14 mg/dL [facility] Specimen Urine Performing Organization Address [facility] Phone Number [address] [address] [place] Creatinine, random urine (12/01/2018 3:37 AM CDT)Only the most recent of3 resultswithin the time period is included. Creatinine, Ur 54.1 mg/dL [facility] Specimen Urine Narrative Performed At Reference Range: No Normals [facility] Performing Organization Address [facility] Phone Number [address] [address] CENTER Urinalysis w/Microscopic (12/01/2018 3:37 AM CDT)Only the most recent of3 resultswithin the time period is included. Color, UA Light Yellow [facility] Clarity, UA Clear [facility] Specific [place], UA 1.007 1.001 - 1.035 [facility] pH, UA 8.0 5.0 - 8.0 [facility] Protein, UA 50 mg/dL (A) Negative [facility] Glucose, UA 150 mg/dL (A) Negative [facility] Ketones, UA 10 mg/dL (A) Negative [facility] Bilirubin, UA Negative Negative [facility] Blood, UA Small (A) Negative [facility] Nitrite, UA Negative Negative [facility] Leukocytes, UA Small (A) Negative [facility] Urobilinogen, UA 0.2 0.2 - 1.0 mg/dL [facility] RBC, UA 5 /HPF [facility] WBC, UA 26 /HPF [facility] Bacteria, UA Few [facility] Squam Epithel, UA 2 /HPF [facility] Hyaline Casts, UA 2 /LPF [facility] Crystals, Urine None Seen [facility] Yeast Few [facility] Specimen Source [facility] Specimen Urine Performing Organization Address City/State/Zipcode Phone Number [facility] [address] [place] [address] CENTER Eosinophil smear (12/01/2018 3:37 AM CDT)Only the most recent of2 resultswithin the time period is included. Eosinophil Smear Rare EOS=less than 5% WBCs No EOS seen [facility] seen are EOS (A) [facility] Specimen Urine Performing Organization Address City/State/Zipcode Phone Number [facility] [address] [place] [phone] CENTER RPR (12/01/2018 3:36 AM CDT) RPR Nonreactive Nonreactive [facility] Specimen Blood Performing Organization Address [facility] Phone Number [address] [address] [place] ECG 12 lead (11/30/2018 5:38 PM CDT)Only the most recent of4 resultswithin the time period is included. Specimen Narrative Performed At Ventricular Rate 82 BPM GE MUSE Atrial Rate 82 BPM P-R Interval 142 ms QRS Duration 74 ms Q-T Interval 432 ms QTC Calculation(Bazett) 504 ms P [place] 93 degrees R [place] 69 degrees T [place] 45 degrees Normal sinus rhythm Nonspecific ST and T wave abnormality Abnormal ECG When compared with ECG of 29-NOV-2018 09:35, Sinus rhythm has replaced Atrial fibrillation Confirmed by MD MARCELO PABLO ([id number]) on 12/01/2018 8:28:32 AM Procedure Note Interface, External Ris In - 12/01/2018 8:28 AM CDT Ventricular Rate 82 BPM Atrial Rate 82 BPM P-R Interval 142 ms QRS Duration 74 ms Q-T Interval 432 ms QTC Calculation(Bazett) 504 ms P [place] 93 degrees R [place] 69 degrees T [place] 45 degrees Normal sinus rhythm Nonspecific ST and T wave abnormality Abnormal ECG When compared with ECG of 29-NOV-2018 09:35, Sinus rhythm has replaced Atrial fibrillation Confirmed by MD MARCELO PABLO ([id number]) on 12/01/2018 8:28:32 AM Performing Organization Address [facility] Phone Number GE MUSE B-type Natriuretic Factor (BNP) (11/30/2018 1:15 AM CDT)Only the most recent of3 resultswithin the time period is included. BNP 747 (H) 0 - 100 pg/mL [facility] Specimen Blood Performing Organization Address [facility] Phone Number [address] [phone] CENTER Troponin I (11/30/2018 1:14 AM CDT)Only the most recent of5 resultswithin the time period is included. Troponin I 0.04 (H) 0.00 - 0.03 ng/mL [facility] Specimen Blood Narrative Performed At Troponin I (TnI) levels must be interpreted [facility] in the context of the presenting symptoms and the clinical findings. Elevated TnI levels indicate myocardial damage, but are not specific for ischemic heart disease. Elevated TnI levels are seen in patients with other cardiac conditions (including myocarditis and congestive heart failure), and slight TnI elevations occur in patients with other conditions, including sepsis, renal failure, acidosis, acute neurological disease, and persistent tachyarrhythmia. Performing Organization Address City/State/Zipcode Phone Number [address] [address] CENTER ECHOCARDIOGRAM REPORT - SCAN (11/29/2018 9:10 PM CDT) Narrative Performed At TRANSFUSION SERVICE REPORT - SCAN (11/27/2018 6:02 PM CDT) Narrative Performed At 2D Echo W/Doppler(CW/PW/Color) (11/27/2018 9:50 AM CDT) Ejection Fraction [facility]CHO [facility] Specimen Narrative Performed At Transthoracic Echocardiography Report (TTE) [facility]CHO [facility] [employer] [facility] Demographics Patient Name IVAN DEY Date of Study 11/27/2018 DAVONTE [id number] GenderFemale Visit Number [id number] RaceUnknown [id number] Room Number 1014 Number Date of Birth1950 Referring Physician Arianna Adame Age68 year(s) [employer] Lyle Goss [facility] Dominic Hutton MD Physician Fellow Ezequiel Davila MD Procedure Type of Study TTE procedure:2DECHO W DOPPLER(CW/PW/COLOR) (Routine) Indications:Known or suspected heart failure. Clinical History HGB 9.8 HCT 29.9 % THIRD DEGREE HB, ARF, SEVERE BRADYCARDIA, CAD, CABG, PAD, DM, CVA, SMOKER Height: 63 inches Weight: 88 kg (194 lbs) BSA: 1.91 m^2 BMI: 34.37 kg/m^2 HR: 68 bpm BP: 135/64 mmHg Summary 1. Normal LV size and function. LVEF is > 60%. 2. Diastology: Indeterminate 3. Normal right ventricular systolic function. The right ventricular cavity size is mildly enlarged. 4. No significant valvular heart disease 5. Mild TR. Estimated peak systolic PA pressure is 50-55 mmHg. 6. No pericardial effusion Previous Study No prior exam available for comparison. Signature Findings Left Ventricle The left ventricle is chamber size (by vol index) is normal (female - LVED vol - 29-61ml/m2). Normal LV wall thickness. All of the LV segments contract no rmally . Estimated LVEF by qualitative assessment is normal. LVEF is > 60%.Diastology: Indeterminate Left AtriumLA size is normal (16-34 ml/m2) . Right VentricleNormal right ventricular systolic function. Th e right ventricular cavity size is mildly en larged. Right Atrium RA size is mildly dilated. Aortic Valve Moderate calcific sclerosis without significant st enosis. No AoV regurgitation. Mitral Valve Normal MV structure and function. Tricuspid ValveMild tricuspid regurgitation. Es timated peak systolic PA pressure is 50-55 mmHg . Pulmonic Valve Normal PV structure and function. AortaAortic root size (SInus of Valsalva diameter) is no rmal. Proximal ascending aorta not visualized. PericardiumNo significant pericardial effusion is visualized. IVC/SVC/PA/PV/PleuralThe estimated RA pressure by IVC dynamics 5-10mmHg . Chambers/Structures Left Atrium LA Volume: 57.74 ml LA Area: 21.02 cm^2 LA Vol. Index: 30 ml/m^2 Left Ventricle LVIDd: 4.39 cm LVEDV:112.12 ml LVIDs: 2.85 cm LV Septum Diastolic: 0.93 cm LV PW Diastolic: 1.06 cm LV FS: 35.1 % LVEDV Hylton's:75.24 ml LVESV Hylton's:35.46 ml LVEDVI: 39 ml/m^2 LVEF Hylton's: 52.9 % LVESVI: 19 ml/m^2 LVOT Diameter: 1.82 cm Right Ventricle TAPSE: 1.57 cm Aorta Ao Root S of Melinda.: 3.41 cm Doppler/Quantitative Measurements Mitral Valve MV Peak E-Wave: 1.14 m/sPeak Gradient: 5.18 mmHg Deceleration Time: 126 msec MV Thierry. Peak: Tissue Doppler E' Septal Velocity: 0.06 m/sA' Lateral Velocity: 0.04 m/s E' Lateral Velocity: 0.09 m/s E/E': 12.07 Aortic Valve Peak Velocity: 1.45 m/s Mean Velocity: 1.01 m/s Peak Gradient: 8.41 mmHgMean Gradient: 4.6 mmHg AV Area (continuity): 1.92 cm^2 AV VTI: 34.1 cm AV DVI: 0.74 LVOT Peak Velocity: 0.97 m/s Peak Gradient: 3.79 mmHg Mean Velocity: 0.7 m/sMean Gradient: 2.19 mmHg LVOT Diameter: 1.82 cmLVOT VTI: 25.23 cm LVOT Area: 2.6 cm^2 LVOT SV:65.6 ml LVOT CO: 4.46 l/min LVOT CI: 2.34 l/min/m^2 Tricuspid Valve TR Velocity: 3.34 m/s TR Gradient: 44.51 mmHg Procedure Note Interface, External Ris In - 11/29/2018 11:56 AM CDT Transthoracic Echocardiography Report (TTE) Demographics Patient Name IVAN DEY Date of Study 11/27/2018 DAVONTE Gender Female Visit Number [id number] Race Unknown Room Number 1014 Number Date of 1950 Referring Physician Arianna Adame Age 68 year(s) [employer] Lyle Goss [facility] Interpreting Kris Hutton MD Physician Fellow Ezequiel Davila MD Procedure Type of Study TTE procedure:2DECHO W DOPPLER(CW/PW/COLOR) (Routine) Indications:Known or suspected heart failure. Clinical History HGB 9.8 HCT 29.9 % THIRD DEGREE HB, ARF, SEVERE BRADYCARDIA, CAD, CABG, PAD, DM, CVA, SMOKER Height: 63 inches Weight: 88 kg (194 lbs) BSA: 1.91 m^2 BMI: 34.37 kg/m^2 HR: 68 bpm BP: 135/64 mmHg Summary 1. Normal LV size and function. LVEF is > 60%. 2. Diastology: Indeterminate 3. Normal right ventricular systolic function. The right ventricular cavity size is mildly enlarged. 4. No significant valvular heart disease 5. Mild TR. Estimated peak systolic PA pressure is 50-55 mmHg. 6. No pericardial effusion Previous Study No prior exam available for comparison. Signature Findings Left Ventricle The left ventricle is chamber size (by vol index) is normal (female - LVED vol - 29-61ml/m2). Normal LV wall thickness. All of the LV segments contract normally . Estimated LVEF by qualitative assessment is normal. LVEF is > 60%.Diastology: Indeterminate Left Atrium LA size is normal (16-34 ml/m2) . Right Ventricle Normal right ventricular systolic function. The right ventricular cavity size is mildly enlarged. Right Atrium RA size is mildly dilated. Aortic Valve Moderate calcific sclerosis without significant stenosis. No AoV regurgitation. Mitral Valve Normal MV structure and function. Tricuspid Valve Mild tricuspid regurgitation. Estimated peak systolic PA pressure is 50-55 mmHg . Pulmonic Valve Normal PV structure and function. Aorta Aortic root size (SInus of Valsalva diameter) is normal. Proximal ascending aorta not visualized. Pericardium No significant pericardial effusion is visualized. IVC/SVC/PA/PV/Pleural The estimated RA pressure by IVC dynamics 5-10mmHg . Chambers/Structures Left Atrium LA Volume: 57.74 ml LA Area: 21.02 cm^2 LA Vol. Index: 30 ml/m^2 Left Ventricle LVIDd: 4.39 cm LVEDV:112.12 ml LVIDs: 2.85 cm LV Septum Diastolic: 0.93 cm LV PW Diastolic: 1.06 cm LV FS: 35.1 % LVEDV Hylton's:75.24 ml LVESV Hylton's:35.46 ml LVEDVI: 39 ml/m^2 LVEF Hylton's: 52.9 % LVESVI: 19 ml/m^2 LVOT Diameter: 1.82 cm Right Ventricle TAPSE: 1.57 cm Aorta Ao Root S of Melinda.: 3.41 cm Doppler/Quantitative Measurements Mitral Valve MV Peak E-Wave: 1.14 m/s Peak Gradient: 5.18 mmHg Deceleration Time: 126 msec MV Thierry. Peak: Tissue Doppler E' Septal Velocity: 0.06 m/s A' Lateral Velocity: 0.04 m/s E' Lateral Velocity: 0.09 m/s E/E': 12.07 Aortic Valve Peak Velocity: 1.45 m/s Mean Velocity: 1.01 m/s Peak Gradient: 8.41 mmHg Mean Gradient: 4.6 mmHg AV Area (continuity): 1.92 cm^2 AV VTI: 34.1 cm AV DVI: 0.74 LVOT Peak Velocity: 0.97 m/s Peak Gradient: 3.79 mmHg Mean Velocity: 0.7 m/s Mean Gradient: 2.19 mmHg LVOT Diameter: 1.82 cm LVOT VTI: 25.23 cm LVOT Area: 2.6 cm^2 LVOT SV:65.6 ml LVOT CO: 4.46 l/min LVOT CI: 2.34 l/min/m^2 Tricuspid Valve TR Velocity: 3.34 m/s TR Gradient: 44.51 mmHg Performing Organization Address City/State/Zipcode Phone Number [facility] E[facility] TSH/Free T4 If Indicated (11/27/2018 3:43 AM CDT)Only the most recent of2 resultswithin the time period is included. TSH 8.31 (H) 0.35 - 4.94 uIU/mL [facility] Specimen Blood Performing Organization Address City/[facility] Phone Number [address] [address] CENTER Iron, TIBC, % sat. (without ferritin) (11/27/2018 3:43 AM CDT)Only the most recent of2 resultswithin the time period is included. Iron 23.0 (L) 40.0 - 160.0 ug/dL [facility] TIBC 274 250 - 450 ug/dL [facility] Iron % Saturation 8 (L) 20 - 55 % [facility] Specimen Blood Performing Organization Address [facility] Phone Number [address] [address] [place] Hepatitis panel, acute (11/27/2018 3:43 AM CDT)Only the most recent of2 resultswithin the time period is included. Hep A IgM Nonreactive Nonreactive [facility] Hep B C IgM Nonreactive Nonreactive [facility] Hepatitis C Ab Nonreactive Nonreactive [facility] hepatitis B Surface Ag Nonreactive Nonreactive [facility] Specimen Blood Performing Organization Address [facility] Phone Number [address] [address] CENTER Reticulocyte count (11/27/2018 3:43 AM CDT) % Retic 0.9 0.5 - 1.7 % [facility] Specimen Blood Performing Organization Address [facility] Phone Number [address] [address] [phone] CENTER Complement Component C3 (11/27/2018 3:43 AM CDT) C3 Complement 96 82 - 193 mg/dL [facility] Specimen Blood Performing Organization Address [facility] Phone Number [address] [address] CENTER Complement Component C4 (11/27/2018 3:43 AM CDT) C4 Complement 43 15 - 57 mg/dL [facility] Specimen Blood Performing Organization Address City/[facility] Phone Number [address] [address] CENTER Uric acid (11/27/2018 3:43 AM CDT) Uric Acid 6.2 2.6 - 7.2 mg/dL [facility] Specimen Blood Performing Organization Address [facility] Phone Number [address] [address] [phone] CENTER T4, free (11/27/2018 3:43 AM CDT)Only the most recent of2 resultswithin the time period is included. Free T4 0.57 (L) 0.70 - 1.48 ng/dL [facility] Specimen Blood Performing Organization Address [facility] Phone Number [address] [address] [phone] CENTER Ferritin (11/27/2018 3:43 AM CDT)Only the most recent of2 resultswithin the time period is included. Ferritin 264 5 - 275 ng/mL [facility] Specimen Blood Performing Organization Address [facility] Phone Number [address] [address] [phone] CENTER Creatine Kinase (CK) (11/27/2018 3:43 AM CDT)Only the most recent of2 resultswithin the time period is included. Total CK 546 (H) 29 - 200 U/L [facility] Specimen Blood Performing Organization Address [facility]/Zipcode Phone Number [facility] [address] [place] [phone] [place] Sodium, random urine (11/26/2018 3:01 PM CDT)Only the most recent of2 resultswithin the time period is included. Sodium Urine 89 meq/L [facility] Specimen Urine Narrative Performed At Reference Range: No Normals [facility] Performing Organization Address [facility] Phone Number [address] [address] [phone] [place] Urine Protein Electrophoresis, random (11/26/2018 3:01 PM CDT) Protein, Urine 66 (H) 0 - 14 mg/dL [facility] Albumin %, Urine 38.9 % [facility] Globulin %, Urine 61.1 % [facility] UPEP,ID Indistinct banding in gamma [facility] region. Urine [facility] for further clarification. Pathologist: Cyn Burgos MD [facility] (electronic signature) [facility] Specimen Urine Performing Organization Address [facility]/Zipcode Phone Number [address] [address] [phone] [place] Urine Immunofixation, random (11/26/2018 3:01 PM CDT) Protein, Urine 66 (H) 0 - 14 mg/dL [facility] Albumin %, Urine 38.9 % [facility] Globulin %, Urine 61.1 % [facility] URINE MARKEL ID Non-specific band identified. [facility] No evidence of IGG, IGM, or MEDICAL [facility]ENTER IGA immunoglobulin with light chain restriction. Clinical correlation is recommended. Pathologist: Aaron Hopper MD (electronic [facility] Specimen Urine Performing Organization Address [facility]/Zipcode Phone Number [facility] [address] [place], [place] [phone] [place] Rheumatoid factor Ab, reflex to titer (11/26/2018 2:13 PM CDT) Rheumatoid Factor Negative [facility] Specimen Blood Performing Organization Address [facility] Phone Number [phone] [place], [place] [phone] [place] Anti-Neutrophil Cytoplasmic Ab (ANCA) (11/26/2018 2:13 PM CDT) Proteinase-3 Ab <1.0 <1.0 [facility] Comment: INCORPORATED <1.0 AI No Antibody Detected > or=1.0 AI Antibody Detected Autoantibodies to proteinase-3 (OR-3) are accepted as characteristic for granulomatosis with polyangiitis (GPA, Abhilash's), and are detectable in 95% of the histologically proven cases. The cytoplasmic IFA pattern, (c-ANCA), is based largely on autoantibody to OR-3 which serves as the primary antigen. These autoantibodies are present in active disease. Myeloperoxidase Ab <1.0 <1.0 [facility] Comment: INCORPORATED <1.0 AI No Antibody Detected > or=1.0 AI Antibody Detected Autoantibodies to myeloperoxidase (MPO) are commonly associated with the following small-vessel vasculitides: microscopic polyangiitis, polyarteritis nodosa, Churg-Wilfred syndrome, necrotizing and crescentic glomerulonephritis and occasionally granulomatosis with polyangiitis (GPA, Abhilash's). The perinuclear IFA pattern, (p-ANCA) is based largely on autoantibody to myeloperoxidase which serves as the primary antigen. These autoantibodies are present in active disease. Specimen Blood Narrative Performed At Performing Lab [facility] [employer] [address] [place] [address] Verona Tavarez MD, PhD, DIOGO Performing Organization Address [facility] Phone Number [facility] [address] [facility] [id number] [address] [facility] Anti-Nuclear Antibody (JUAN) (11/26/2018 2:13 PM CDT) JUAN Negative Negative [facility] Specimen Blood Narrative Performed At Test performed by IFA method. [facility] Test performed by IFA method. Performing Organization Address City/[facility]/Zipcode Phone Number [facility] [address] [place] [address] [place] Protein electrophoresis, serum (11/26/2018 2:13 PM CDT) Albumin Fraction 3.2 (L) 3.5 - 5.5 g/dL [facility] Alpha 1 Fraction 0.2 0.2 - 0.4 g/dL [facility] Alpha 2 Fraction 1.0 (H) 0.5 - 0.9 g/dL [facility] Beta Fraction 0.7 0.6 - 1.1 g/dL [facility] Gamma Globulin Fraction 0.7 0.7 - 1.7 g/dL [facility] Interpretation Pattern suggestive of [facility] acute inflammation. No [facility] monoclonal bands detected. Pathologist: Cyn Burgos MD [facility] (electronic signature) [facility] Protein, Total 5.9 (L) 6.0 - 8.3 gm/dL [facility] Specimen Blood Performing Organization Address City/[facility]/Zipcode Phone Number [facility] [address] [place] [address] [phone] CENTER US renal complete (11/26/2018 1:45 PM CDT) Specimen Narrative Performed At FINAL REPORT [employer] TECHNIQUE: Grayscale ultrasound of the kidneys and bladder. INDICATION: 68-year-old woman with renal failure. COMPARISON: None. FINDINGS: RIGHT KIDNEY: The right kidney measures 12.8 x 4.8 x 5 cm. Cortical thickness measures 1.8 cm. No solid mass lesions. No hydronephrosis. Renal artery and vein are patent. LEFT KIDNEY: The left kidney measures 11.9 x 6.1 x 4.6 cm. Cortical thickness measures 2 cm. No solid mass lesions. No hydronephrosis. Renal artery and vein are patent. BLADDER: The bladder is decompressed by Hutchinson catheter. IMPRESSION: Unremarkable renal ultrasound. Signed: Yuriy Lucas MD Report Verified Date/Time:11/26/2018 15:05:19 Reading Location: [address] Radiology Reading Room Procedure Note Interface, External Ris In - 11/26/2018 3:07 PM CDT FINAL REPORT TECHNIQUE: Grayscale ultrasound of the kidneys and bladder. INDICATION: 68-year-old woman with renal failure. COMPARISON: None. FINDINGS: RIGHT KIDNEY: The right kidney measures 12.8 x 4.8 x 5 cm. Cortical thickness measures 1.8 cm. No solid mass lesions. No hydronephrosis. Renal artery and vein are patent. LEFT KIDNEY: The left kidney measures 11.9 x 6.1 x 4.6 cm. Cortical thickness measures 2 cm. No solid mass lesions. No hydronephrosis. Renal artery and vein are patent. BLADDER: The bladder is decompressed by Hutchinson catheter. IMPRESSION: Unremarkable renal ultrasound. Signed: Yuriy Lucas MD Report Verified Date/Time: 11/26/2018 15:05:19 Reading Location: [address] Radiology Reading Room Performing Organization Address City/State/Zipcode Phone Number [facility] Urine culture (11/26/2018 11:20 AM CDT) Result >100,000 col/mL Klebsiella [facility] pneumoniae (A) CENTER Specimen Urine Organism Antibiotic Method Susceptibility Klebsiella pneumoniae Amikacin <=2: Susceptible Klebsiella pneumoniae Ampicillin + Sulbactam 8: Susceptible Klebsiella pneumoniae Aztreonam <=1: Susceptible Klebsiella pneumoniae Cefepime <=1: Susceptible Klebsiella pneumoniae Cefoxitin <=4: Susceptible Klebsiella pneumoniae Ceftazidime <=1: Susceptible Klebsiella pneumoniae Ceftriaxone <=1: Susceptible Klebsiella pneumoniae Ertapenem <=0.5: Susceptible Klebsiella pneumoniae Gentamicin <=1: Susceptible Klebsiella pneumoniae Levofloxacin <=0.12: Susceptible Klebsiella pneumoniae Meropenem <=0.25: Susceptible Klebsiella pneumoniae Nitrofurantoin 64: Intermediate Klebsiella pneumoniae Piperacillin + Tazobactam <=4: Susceptible Klebsiella pneumoniae Tetracycline >=16: Resistant Klebsiella pneumoniae Tobramycin <=1: Susceptible Klebsiella pneumoniae Trimethoprim + Sulfamethoxazole >=320: Resistant Performing Organization Address City/[facility] Phone Number [address] [address] [phone] [place] Blood gas, venous (11/26/2018 5:49 AM CDT)Only the most recent of2 resultswithin the time period is included. pH, [place] 7.27 (L) 7.32 - 7.42 [facility] pCO2, [place] 38 (L) 41 - 51 mmHg [facility] pO2, [place] 48 (H) 25 - 40 mmHg [facility] O2 Sat, [place] 78.4 (H) 40.0 - 70.0 % [facility] HCO3, [place] 17 (L) 21 - 29 mmol/L [facility] Base Excess, [place] -9.2 (L) -2.0 - 3.0 mmol/L [facility] Patient Temperature 37.0 C [facility] FIO2 21.0 % [facility] Specimen Blood Performing Organization Address [facility] Phone Number [address] [address] [place] Urea Nitrogen, random urine (11/26/2018 4:41 AM CDT) Urea Nitrogen, Ur 207 mg/dL [facility] Specimen Urine Narrative Performed At Reference Range: No Normals [facility] Performing Organization Address City/[facility]/Zipcode Phone Number [address] [address] [place] XR chest 1 view portable / bedside (11/26/2018 3:29 AM CDT)Only the most recent of2 resultswithin the time period is included. Specimen Narrative Performed At FINAL REPORT GE RIS RAD, CHEST, 1 VIEW, NON DEPT INDICATION: DIALYSIS CATHTER PLACEMENT COMPARISON: Prior day's exam FINDINGS: Portable frontal view of the chest. IMPRESSION: Support Lines: Interval placement of a right IJ central venous catheter with tip overlying the cavoatrial junction. Lungs and pleura: Unchanged airspace and pleural opacities. No pneumothorax. Heart and mediastinum: Stable contours. Stable surgical changes. Additional findings: None. Signed: Karla Nieves MD Report Verified Date/Time:11/26/2018 04:02:49 Procedure Note Interface, External Ris In - 11/26/2018 4:05 AM CDT FINAL REPORT RAD, CHEST, 1 VIEW, NON DEPT INDICATION: DIALYSIS CATHTER PLACEMENT COMPARISON: Prior day's exam FINDINGS: Portable frontal view of the chest. IMPRESSION: Support Lines: Interval placement of a right IJ central venous catheter with tip overlying the cavoatrial junction. Lungs and pleura: Unchanged airspace and pleural opacities. No pneumothorax. Heart and mediastinum: Stable contours. Stable surgical changes. Additional findings: None. Signed: Karla Nieves MD Report Verified Date/Time: 11/26/2018 04:02:49 Performing Organization Address City/[facility] Phone Number [facility] HIV-1 Antigen with HIV-1/2 Antibody (11/26/2018 3:19 AM CDT) HIV-1 Antigen with HIV 1&2 Nonreactive Nonreactive [facility] Antibody [facility] Specimen Blood Performing Organization Address City/[facility]/Zipcode Phone Number [address] [address] CENTER PTH, intact (11/26/2018 3:19 AM CDT) PTH 375.7 (H) 8.5 - 72.5 pg/mL [facility] Specimen Blood Performing Organization Address City/[facility]/Zipcode Phone Number [address] [place], [place] [id number] CENTER ABORH, manual (11/26/2018 1:18 AM CDT) ABO Grouping O [facility] Rh Factor POS [facility] Specimen Blood Performing Organization Address City/[facility] Phone Number [address] [address] Hemoglobin A1c (11/26/2018 12:58 AM CDT) Hemoglobin A1C 7.2 (H) 4.3 - 6.1 % [facility] Specimen Blood Performing Organization Address [facility] Phone Number [address] [address] [place] Lipid panel (11/26/2018 12:58 AM CDT) Triglycerides 201 mg/dL [facility] Cholesterol 112 mg/dL [facility] HDL 25 mg/dL [facility] LDL Calculated 47 mg/dL [facility] Specimen Blood Narrative Performed At Triglyceride Reference Range: [facility] Low Risk <150 [id number] High Risk 200-499 Very High Risk>=500 Cholesterol Reference Range: Low Risk <200 [id number] High Risk>240 HDL Cholesterol Reference Range: Low Risk >=60 High Risk <40 LDL Cholesterol Reference Range: Optimal<100 Near [id number] Very High >=190 Performing Organization Address City/[facility] Phone Number [address] [address] [phone] [place] PT/aPTT (11/26/2018 12:45 AM CDT) Protime 16.7 (H) 11.9 - 14.2 seconds [facility] INR 1.4 <=5.9 [facility] PTT 35.6 22.5 - 36.0 seconds [facility] Specimen Blood Narrative Performed At Effective 10/02/2018: PT Reference Range [facility] Change New: 11.9-14.2Previous: 11.7-14.7 RECOMMENDED COUMADIN/WARFARIN INR THERAPY RANGES STANDARD DOSE: 2.0-3.0Includes: PROPHYLAXIS for venous thrombosis, systemic embolization; TREATMENT for venous thrombosis and/or pulmonary embolus. HIGH RISK: Target INR is 2.5-3.5 for patients wiht mechanical heart valves. Performing Organization Address City/[facility] Phone Number [address] [address] [phone] CENTER Lactic acid, venous (11/26/2018 12:45 AM CDT) Lactate, Venous 1.7Comment: Specimen 0.5 - 2.2 mmol/L [facility] slightly hemolyzed [facility] Specimen Blood Performing Organization Address [facility] Phone Number [address] [address] [phone] CENTER Prothrombin time/INR (11/26/2018 12:45 AM CDT) Protime 16.7 (H) 11.9 - 14.2 seconds [facility] INR 1.4 <=5.9 [facility] Specimen Blood Narrative Performed At Effective 10/02/2018: PT Reference Range [facility] Change New: 11.9-14.2Previous: 11.7-14.7 RECOMMENDED COUMADIN/WARFARIN INR THERAPY RANGES STANDARD DOSE: 2.0-3.0Includes: PROPHYLAXIS for venous thrombosis, systemic embolization; TREATMENT for venous thrombosis and/or pulmonary embolus. HIGH RISK: Target INR is 2.5-3.5 for patients wiht mechanical heart valves. Performing Organization Address [facility] Phone Number [address] [address] CENTER Type and screen, automated (11/26/2018 12:43 AM CDT) ABO/RH AUTOMATED (BEAKER) O POSITIVE [facility] Ab Scrn NEGATIVE [facility] Specimen Blood Performing Organization Address City/State/Zipcode Phone Number [facility] [address] [place] [address] after 01/12/2018 Insurance Payer Benefit Plan / Group Subscriber ID Type Phone Address [employer] - MGD CARE C[employer] HMO/POS/OPEN ACCESS xxxxxxxxxxx HMO/POS Advance Directives For more information, please contact:[facility] [place], [place] [phone] Code Status Date Activated Date Inactivated Comments Full Code 11/26/2018 12:05 AM 12/05/2018 7:42 PM This code status was determined by: Patient
--- OUTSIDE RECORDS SUMMARY | 2019-01-13 11:32 | XMS REPORT | Summary of Care ---
:1950 Author Organization [facility] Address [address] [place] [id number] Care Team Providers Name Role Phone Pcp, Patient Does Not Have A Primary Care Provider Reason for Visit Reason Comments Notification Encounter Details Date Type Department Care Team Description 12/09/2018 Telephone [facility] Endocrinology- Marybeth Hicks MD Notification [address] Professional Office [address] [phone] [place] [address] Dr[address] Dean [address] [place] [phone] Allergies No Known Allergiesdocumented as of this encounter (statuses as of 12/10/2018) Medications Medication Sig Dispensed Refills Start Date End Date Status clopidogrel (PLAVIX) 75 Take 75 mg by 0 Active mg tablet mouth daily. CARVEDILOL (COREG Take by mouth. 0 Active ORAL)Indications: Indications: Patient is unsure of Patient is unsure dosage of dosage ROSUVASTATIN CALCIUM Take by mouth. 0 Active (CRESTOR Indications: ORAL)Indications: Patrient is Patrient is unsure of unsure of dosage dosage aspirin 325 mg tablet Take 325 mg by 0 Active mouth daily. candesartan-hydrochloro Take 1 tablet by 0 Active thiazide (ATACAND HCT) mouth daily. 16-12.5 mg per tablet zolpidem (AMBIEN) 5 mg Take 5 mg by 0 Active tablet mouth at bedtime as needed for Insomnia. BD ULTRAFINE III MINI USE DAILY WITH 100 Each 2 07/25/2017 Active PEN 31 gauge x 3/16" BALA NdleIndications: Type 2 diabetes mellitus without complication, without long-term current use of insulin Insulin Lisp & Lisp inject 28 Units 16.8 mL 3 04/12/2018 Active Prot, Hum, (HUMALOG MIX under the skin 2 75-25 KWIKPEN) 100 (two) times daily unit/mL (75-25) with meals. injectionIndications: Uncontrolled type 2 diabetes mellitus with hyperglycemia METFORMIN 1,000 mg TAKE ONE TABLET 60 tablet 0 09/06/2018 Active tabletIndications: Type BY MOUTH TWICE A 2 diabetes mellitus DAY WITH FOOD without complication, without long-term current use of insulin documented as of this encounter (statuses as of 12/10/2018) Active Problems Problem Noted Date Dyslipidemia 08/28/2016 Essential hypertension 08/28/2016 Type 2 diabetes mellitus without complication, with long-term current use 06/2016 of insulin documented as of this encounter (statuses as of 12/10/2018) Resolved Problems Problem Noted Date Resolved Date Type 2 diabetes mellitus without complication, without 04/05/2016 08/28/2016 long-term current use of insulin documented as of this encounter (statuses as of 12/10/2018) Social History Tobacco Use Types Packs/Day Years Used Date Current Some Day Smoker Alcohol Use Drinks/Week oz/Week Comments Not Asked 0 Standard drinks or equivalent 0.0 Sex Assigned at Date Recorded Not on file Job Start Date Occupation Industry Not on file Not on file Not on file Travel History Travel Start Travel End No recent travel history available. documented as of this encounter Last Filed Vital Signs Not on filedocumented in this encounter Plan of Treatment Health Maintenance Due Date Last Done Comments HEPATITIS C (HCV) SCREEN 1950 CREATININE (SERUM) 1961 EYE EXAM 1961 LDL-C 1961 URINE MICROALBUMIN 1961 DTaP,Tdap,and Td Vaccines (1 - Tdap) 1970 MAMMOGRAM 1991 COLONOSCOPY 2001 Zoster Recombinant Vaccine (SHINGRIX) 2001 (1 of 2) LUNG CANCER SCREEN: Recommended for 2006 age 55-80 with 30 + pack year history Medicare Wellness Visit 2016 Osteoporosis Screening 2016 PNEUMOCOCCAL VACCINES 65+ (1 of 2 - 2016 PCV13) HgA1C 10/11/2018 04/12/2018, 08/28/2016, 04/05/2016 INFLUENZA VACCINE 01/05/2019 FOOT EXAM 04/12/2019 04/12/2018, 04/12/2018 documented as of this encounter Results Not on filedocumented in this encounter Insurance Payer Benefit Plan / Group Subscriber ID Effective Dates Phone Address Type DOUGLAS COLE III [id number] 2015-Present HMO/PPO/POS documented as of this encounter
--- OUTSIDE RECORDS SUMMARY | 2019-01-13 11:32 | XMS REPORT ---
:1950 [facility] at the [facility] Jaiden Arguello [address] [place] [id number] Care Team Providers Name Role Phone ALESSANDRO GOFF Unavailable Unavailable Problems This patient has no known problems. Allergies, Adverse Reactions, Alerts This patient has no known allergies or adverse reactions. Medications This patient has no known medications. Results Test Description Test Time Test Comments Text Results Atomic Results Result Comments URINE IMMUNOFIXATION, RANDOM 2018-12-06 09:34:00 Test Item Value Reference Range Comments PROTEIN, URINE (BEAKER) (test 66 mg/dL 0-14 clep=2919) ALBUMIN URINE ELP (BEAKER) (test 38.9 % ogcj=9925) GAMMA GLOBULIN URINE (BEAKER) (test 61.1 % porn=7473) URINE MARKEL ID-402 (BEAKER) (test Non-specific band identified. No tzhv=0392) evidence of IGG, IGM, or IGA immunoglobulin with light chain restriction. Clinical correlation is recommended. [id number] (BEAKER) (test Aaron Hopper MD (electronic signature) bpcn=1088) POCT-GLUCOSE [id number] 12:36:00 Test Item Value Reference Range Comments POC-GLUCOSE METER (BEAKER) 178 mg/dL 70-[address] [facility] [address] [facility] (test cjow=8924) [place] [address] POCT-GLUCOSE [id number] 08:06:00 Test Item Value Reference Range Comments POC-GLUCOSE METER (BEAKER) 145 mg/dL 70-110 TESTED AT [place] [id number] [facility] (test qrqs=3786) [place] [id number] BASIC METABOLIC [id number] 07:28:00 Test Item Value Reference Range Comments SODIUM (BEAKER) (test 140 meq/L 136-145 yotm=269) POTASSIUM (BEAKER) (test 3.7 meq/L 3.5-5.1 pora=988) CHLORIDE (BEAKER) (test 108 meq/L 98-107 aebo=838) CO2 (BEAKER) (test 24 meq/L 22-29 ddok=541) BLOOD UREA NITROGEN 31 mg/dL 7-21 (BEAKER) (test vcza=811) CREATININE (BEAKER) (test 1.96 mg/dL 0.57-1.25 muvl=308) GLUCOSE RANDOM (BEAKER) 139 mg/dL 70-105 (test kvuf=706) CALCIUM (BEAKER) (test 9.9 mg/dL 8.4-10.2 istf=663) EGFR (BEAKER) (test 25 mL/min/1.73 sq m ESTIMATED GFR IS NOT prbh=0481) ACCURATE CREATININE CLEARANCE IN PREDICTING GLOMERULAR FILTRATION RATE. ESTIMATED GFR IS NOT APPLICABLE FOR DIALYSIS PATIENTS. [id number] 07:14:00 Test Item Value Reference Range Comments PHOSPHORUS (BEAKER) (test iqik=830) 3.4 mg/dL 2.3-4.7 [id number] 07:14:00 Test Item Value Reference Range Comments MAGNESIUM (BEAKER) (test debc=098) 1.8 mg/dL 1.6-2.6 [id number] 06:41:00 Test Item Value Reference Range Comments PARTIAL THROMBOPLASTIN TIME (BEAKER) (test 27.7 seconds 22.5-36.0 zuro=931) CBC W/PLT COUNT & AUTO [id number] 06:30:00 Test Item Value Reference Range Comments WHITE BLOOD CELL COUNT (BEAKER) (test wbjn=984) 7.6 K/ L 3.5-10.5 RED BLOOD CELL COUNT (BEAKER) (test kkav=782) 3.08 M/ L 3.93-5.22 HEMOGLOBIN (BEAKER) (test saon=391) 9.3 GM/DL 11.2-15.7 HEMATOCRIT (BEAKER) (test uaqe=874) 30.2 % 34.1-44.9 MEAN CORPUSCULAR VOLUME (BEAKER) (test vmgb=896) 98.1 fL 79.4-94.8 MEAN CORPUSCULAR HEMOGLOBIN (BEAKER) (test 30.2 pg 25.6-32.2 fexl=521) MEAN CORPUSCULAR HEMOGLOBIN CONC (BEAKER) (test 30.8 GM/DL 32.2-35.5 cuvb=629) RED CELL DISTRIBUTION WIDTH (BEAKER) (test 14.3 % 11.7-14.4 vxeb=175) PLATELET COUNT (BEAKER) (test tqcq=797) 299 K/CU MM 150-450 MEAN PLATELET VOLUME (BEAKER) (test byby=002) 9.7 fL 9.4-12.3 NUCLEATED RED BLOOD CELLS (BEAKER) (test 0 /100 WBC 0-0 dpbz=581) NEUTROPHILS RELATIVE PERCENT (BEAKER) (test 71 % xepk=749) LYMPHOCYTES RELATIVE PERCENT (BEAKER) (test 17 % hnzn=496) MONOCYTES RELATIVE PERCENT (BEAKER) (test 8 % gkyk=597) EOSINOPHILS RELATIVE PERCENT (BEAKER) (test 2 % prry=695) BASOPHILS RELATIVE PERCENT (BEAKER) (test 1 % upfb=213) NEUTROPHILS ABSOLUTE COUNT (BEAKER) (test 5.43 K/ L 1.56-6.13 zvax=845) LYMPHOCYTES ABSOLUTE COUNT (BEAKER) (test 1.27 K/ L 1.18-3.74 iiyv=700) MONOCYTES ABSOLUTE COUNT (BEAKER) (test 0.63 K/ L 0.24-0.36 pmhp=161) EOSINOPHILS ABSOLUTE COUNT (BEAKER) (test 0.12 K/ L 0.04-0.36 zpjx=357) BASOPHILS ABSOLUTE COUNT (BEAKER) (test 0.07 K/ L 0.01-0.08 xjuq=035) IMMATURE GRANULOCYTES-RELATIVE PERCENT (BEAKER) 1 % 0-1 (test onli=6599) POCT-GLUCOSE [id number] 21:51:00 Test Item Value Reference Range Comments POC-GLUCOSE METER (BEAKER) 142 mg/dL 70-110 TESTED AT [address] (test udan=3482) [facility] [address] POCT-GLUCOSE [id number] 18:00:00 Test Item Value Reference Range Comments POC-GLUCOSE METER (BEAKER) 139 mg/dL 70-110 TESTED AT [address] (test vmbs=9237) [facility] [address] POCT-GLUCOSE [id number] 13:00:00 Test Item Value Reference Range Comments POC-GLUCOSE METER (BEAKER) 166 mg/dL 70-110 TESTED AT [address] (test bglc=0067) [facility] [address] POCT-GLUCOSE [id number] 09:00:00 Test Item Value Reference Range Comments POC-GLUCOSE METER (BEAKER) 151 mg/dL 70-[address] [facility] [address] [facility] (test wowq=8632) [facility] [address] COMPREHENSIVE METABOLIC [id number] 06:08:00 Test Item Value Reference Range Comments TOTAL PROTEIN (BEAKER) 6.6 gm/dL 6.0-8.3 (test iwtd=901) ALBUMIN (BEAKER) (test 3.9 g/dL 3.5-5.0 pkgt=5529) ALKALINE PHOSPHATASE 64 U/L 40-150 (BEAKER) (test edij=070) BILIRUBIN TOTAL (BEAKER) 0.4 mg/dL 0.2-1.2 (test hkow=813) SODIUM (BEAKER) (test 139 meq/L 136-145 wtrb=913) POTASSIUM (BEAKER) (test 3.2 meq/L 3.5-5.1 capf=311) CHLORIDE (BEAKER) (test 106 meq/L 98-107 pgca=746) CO2 (BEAKER) (test 24 meq/L 22-29 kglv=360) BLOOD UREA NITROGEN 34 mg/dL 7-21 (BEAKER) (test cpje=885) CREATININE (BEAKER) (test 2.31 mg/dL 0.57-1.25 joqh=584) GLUCOSE RANDOM (BEAKER) 142 mg/dL 70-105 (test heyl=906) CALCIUM (BEAKER) (test 9.3 mg/dL 8.4-10.2 aftv=973) AST (SGOT) (BEAKER) (test 25 U/L 5-34 snag=078) ALT (SGPT) (BEAKER) (test 29 U/L 6-55 vfzg=640) EGFR (BEAKER) (test 21 mL/min/1.73 sq m ESTIMATED GFR IS NOT tdnj=4246) ACCURATE CREATININE CLEARANCE IN PREDICTING GLOMERULAR FILTRATION RATE. ESTIMATED GFR IS NOT APPLICABLE FOR DIALYSIS PATIENTS. [id number] 06:03:00 Test Item Value Reference Range Comments PHOSPHORUS (BEAKER) (test iykd=176) 3.1 mg/dL 2.3-4.7 [id number] 06:03:00 Test Item Value Reference Range Comments MAGNESIUM (BEAKER) (test psac=576) 1.9 mg/dL 1.6-2.6 [id number] 05:01:00 Test Item Value Reference Range Comments PARTIAL THROMBOPLASTIN TIME (BEAKER) (test 82.6 seconds 22.5-36.0 scri=450) CALCIUM, [id number] 04:52:00 Test Item Value Reference Range Comments CALCIUM IONIZED (BEAKER) (test teoi=694) 1.17 mmol/L 1.12-1.27 PH, BLOOD (BEAKER) (test okav=9022) 7.43 CBC W/PLT COUNT & AUTO [id number] 04:46:00 Test Item Value Reference Range Comments WHITE BLOOD CELL COUNT (BEAKER) (test klsr=452) 6.1 K/ L 3.5-10.5 RED BLOOD CELL COUNT (BEAKER) (test qwhf=868) 2.73 M/ L 3.93-5.22 HEMOGLOBIN (BEAKER) (test uujm=656) 8.3 GM/DL 11.2-15.7 HEMATOCRIT (BEAKER) (test khck=873) 26.7 % 34.1-44.9 MEAN CORPUSCULAR VOLUME (BEAKER) (test riay=996) 97.8 fL 79.4-94.8 MEAN CORPUSCULAR HEMOGLOBIN (BEAKER) (test 30.4 pg 25.6-32.2 ksjk=057) MEAN CORPUSCULAR HEMOGLOBIN CONC (BEAKER) (test 31.1 GM/DL 32.2-35.5 pmdn=642) RED CELL DISTRIBUTION WIDTH (BEAKER) (test 14.1 % 11.7-14.4 tyfw=839) PLATELET COUNT (BEAKER) (test gdfz=936) 258 K/CU MM 150-450 MEAN PLATELET VOLUME (BEAKER) (test cuto=268) 9.2 fL 9.4-12.3 NUCLEATED RED BLOOD CELLS (BEAKER) (test 0 /100 WBC 0-0 ilxz=135) NEUTROPHILS RELATIVE PERCENT (BEAKER) (test 68 % tieu=291) LYMPHOCYTES RELATIVE PERCENT (BEAKER) (test 20 % sazo=285) MONOCYTES RELATIVE PERCENT (BEAKER) (test 7 % fhxj=944) EOSINOPHILS RELATIVE PERCENT (BEAKER) (test 2 % elsd=385) BASOPHILS RELATIVE PERCENT (BEAKER) (test 1 % nnxo=926) NEUTROPHILS ABSOLUTE COUNT (BEAKER) (test 4.17 K/ L 1.56-6.13 feva=257) LYMPHOCYTES ABSOLUTE COUNT (BEAKER) (test 1.23 K/ L 1.18-3.74 kdzl=342) MONOCYTES ABSOLUTE COUNT (BEAKER) (test 0.45 K/ L 0.24-0.36 gzyg=569) EOSINOPHILS ABSOLUTE COUNT (BEAKER) (test 0.15 K/ L 0.04-0.36 eigz=297) BASOPHILS ABSOLUTE COUNT (BEAKER) (test 0.07 K/ L 0.01-0.08 rwbe=557) IMMATURE GRANULOCYTES-RELATIVE PERCENT (BEAKER) 1 % 0-1 (test hgbz=4428) POCT-GLUCOSE [id number] 21:21:00 Test Item Value Reference Range Comments POC-GLUCOSE METER (BEAKER) 134 mg/dL 70-110 TESTED AT [address] (test umlb=9990) [place] [id number] BASIC METABOLIC [id number] 18:26:00 Test Item Value Reference Range Comments SODIUM (BEAKER) (test 138 meq/L 136-145 ghki=773) POTASSIUM (BEAKER) (test 3.9 meq/L 3.5-5.1 dran=567) CHLORIDE (BEAKER) (test 107 meq/L 98-107 mvng=131) CO2 (BEAKER) (test 23 meq/L 22-29 yxny=080) BLOOD UREA NITROGEN 37 mg/dL 7-21 (BEAKER) (test fueo=144) CREATININE (BEAKER) (test 2.42 mg/dL 0.57-1.25 jjjr=055) GLUCOSE RANDOM (BEAKER) 135 mg/dL 70-105 (test mxtl=545) CALCIUM (BEAKER) (test 9.3 mg/dL 8.4-10.2 ggth=449) EGFR (BEAKER) (test 20 mL/min/1.73 sq m ESTIMATED GFR IS NOT ivbk=0414) ACCURATE CREATININE CLEARANCE IN PREDICTING GLOMERULAR FILTRATION RATE. ESTIMATED GFR IS NOT APPLICABLE FOR DIALYSIS PATIENTS. POCT-GLUCOSE [id number] 18:21:00 Test Item Value Reference Range Comments POC-GLUCOSE METER (BEAKER) 164 mg/dL 70-110 TESTED AT [address] (test brhf=8828) [facility] [address] POCT-GLUCOSE [id number] 11:12:00 Test Item Value Reference Range Comments POC-GLUCOSE METER (BEAKER) 160 mg/dL 70-[address] [facility] [address] [facility] (test xfbl=6245) [facility] [address] COMPREHENSIVE METABOLIC [id number] 05:14:00 Test Item Value Reference Range Comments TOTAL PROTEIN (BEAKER) 6.4 gm/dL 6.0-8.3 (test jfdl=149) ALBUMIN (BEAKER) (test 3.8 g/dL 3.5-5.0 ntgm=8305) ALKALINE PHOSPHATASE 59 U/L 40-150 (BEAKER) (test vfln=271) BILIRUBIN TOTAL (BEAKER) 0.4 mg/dL 0.2-1.2 (test xajz=306) SODIUM (BEAKER) (test 139 meq/L 136-145 rjzb=775) POTASSIUM (BEAKER) (test 3.4 meq/L 3.5-5.1 irfq=873) CHLORIDE (BEAKER) (test 108 meq/L 98-107 gwvk=019) CO2 (BEAKER) (test 23 meq/L 22-29 bdym=773) BLOOD UREA NITROGEN 34 mg/dL 7-21 (BEAKER) (test hyft=765) CREATININE (BEAKER) (test 2.49 mg/dL 0.57-1.25 pxfj=597) GLUCOSE RANDOM (BEAKER) 144 mg/dL 70-105 (test eewe=911) CALCIUM (BEAKER) (test 9.2 mg/dL 8.4-10.2 bkrx=116) AST (SGOT) (BEAKER) (test 20 U/L 5-34 lgbq=109) ALT (SGPT) (BEAKER) (test 18 U/L 6-55 tlvt=966) EGFR (BEAKER) (test 19 mL/min/1.73 sq m ESTIMATED GFR IS NOT auou=5115) ACCURATE CREATININE CLEARANCE IN PREDICTING GLOMERULAR FILTRATION RATE. ESTIMATED GFR IS NOT APPLICABLE FOR DIALYSIS PATIENTS. [id number] 05:12:00 Test Item Value Reference Range Comments PHOSPHORUS (BEAKER) (test ulaq=161) 2.7 mg/dL 2.3-4.7 [id number] 05:12:00 Test Item Value Reference Range Comments MAGNESIUM (BEAKER) (test ptbv=429) 2.0 mg/dL 1.6-2.6 [id number] 05:05:00 Test Item Value Reference Range Comments PARTIAL THROMBOPLASTIN TIME (BEAKER) (test 78.0 seconds 22.5-36.0 rbqx=579) CALCIUM, [id number] 04:53:00 Test Item Value Reference Range Comments CALCIUM IONIZED (BEAKER) (test dfei=747) 1.18 mmol/L 1.12-1.27 PH, BLOOD (BEAKER) (test namn=0384) 7.41 CBC W/PLT COUNT & AUTO [id number] 04:44:00 Test Item Value Reference Range Comments WHITE BLOOD CELL COUNT (BEAKER) (test cbri=083) 7.5 K/ L 3.5-10.5 RED BLOOD CELL COUNT (BEAKER) (test lnmr=939) 2.89 M/ L 3.93-5.22 HEMOGLOBIN (BEAKER) (test ablz=999) 8.8 GM/DL 11.2-15.7 HEMATOCRIT (BEAKER) (test htvq=341) 28.3 % 34.1-44.9 MEAN CORPUSCULAR VOLUME (BEAKER) (test gqcu=482) 97.9 fL 79.4-94.8 MEAN CORPUSCULAR HEMOGLOBIN (BEAKER) (test 30.4 pg 25.6-32.2 phgw=210) MEAN CORPUSCULAR HEMOGLOBIN CONC (BEAKER) (test 31.1 GM/DL 32.2-35.5 dvhj=043) RED CELL DISTRIBUTION WIDTH (BEAKER) (test 13.8 % 11.7-14.4 wypx=722) PLATELET COUNT (BEAKER) (test aqxu=414) 263 K/CU MM 150-450 MEAN PLATELET VOLUME (BEAKER) (test vxjo=816) 9.3 fL 9.4-12.3 NUCLEATED RED BLOOD CELLS (BEAKER) (test 0 /100 WBC 0-0 yqnm=556) NEUTROPHILS RELATIVE PERCENT (BEAKER) (test 73 % vnyc=395) LYMPHOCYTES RELATIVE PERCENT (BEAKER) (test 16 % iytr=707) MONOCYTES RELATIVE PERCENT (BEAKER) (test 7 % wfzn=542) EOSINOPHILS RELATIVE PERCENT (BEAKER) (test 2 % tsmv=710) BASOPHILS RELATIVE PERCENT (BEAKER) (test 1 % dgft=414) NEUTROPHILS ABSOLUTE COUNT (BEAKER) (test 5.44 K/ L 1.56-6.13 pjlp=198) LYMPHOCYTES ABSOLUTE COUNT (BEAKER) (test 1.21 K/ L 1.18-3.74 cluv=828) MONOCYTES ABSOLUTE COUNT (BEAKER) (test 0.54 K/ L 0.24-0.36 xmou=325) EOSINOPHILS ABSOLUTE COUNT (BEAKER) (test 0.17 K/ L 0.04-0.36 ozqu=152) BASOPHILS ABSOLUTE COUNT (BEAKER) (test 0.08 K/ L 0.01-0.08 qice=840) IMMATURE GRANULOCYTES-RELATIVE PERCENT (BEAKER) 1 % 0-1 (test memd=1064) POCT-GLUCOSE [id number] 21:33:00 Test Item Value Reference Range Comments POC-GLUCOSE METER (BEAKER) 138 mg/dL 70-[address] [facility] [address] [facility] (test dswg=2753) [facility] [address] BASIC METABOLIC [id number] 18:05:00 Test Item Value Reference Range Comments SODIUM (BEAKER) (test 136 meq/L 136-145 nxea=745) POTASSIUM (BEAKER) (test 3.7 meq/L 3.5-5.1 bsfv=697) CHLORIDE (BEAKER) (test 103 meq/L 98-107 tzhe=879) CO2 (BEAKER) (test 25 meq/L 22-29 lwqs=218) BLOOD UREA NITROGEN 36 mg/dL 7-21 (BEAKER) (test cymq=954) CREATININE (BEAKER) (test 2.80 mg/dL 0.57-1.25 liow=454) GLUCOSE RANDOM (BEAKER) 186 mg/dL 70-105 (test dceg=476) CALCIUM (BEAKER) (test 9.1 mg/dL 8.4-10.2 tmff=281) EGFR (BEAKER) (test 17 mL/min/1.73 sq m ESTIMATED GFR IS NOT gphw=6679) ACCURATE CREATININE CLEARANCE IN PREDICTING GLOMERULAR FILTRATION RATE. ESTIMATED GFR IS NOT APPLICABLE FOR DIALYSIS PATIENTS. [id number] 13:04:00 Test Item Value Reference Range Comments PARTIAL THROMBOPLASTIN TIME (BEAKER) (test 71.7 seconds 22.5-36.0 sovv=866) POCT-GLUCOSE [id number] 12:11:00 Test Item Value Reference Range Comments POC-GLUCOSE METER (BEAKER) 158 mg/dL 70-[address] [facility] [address] [facility] (test xgsy=8882) [facility] [address] COMPREHENSIVE METABOLIC [id number] 06:52:00 Test Item Value Reference Range Comments TOTAL PROTEIN (BEAKER) 6.5 gm/dL 6.0-8.3 (test scch=913) ALBUMIN (BEAKER) (test 3.7 g/dL 3.5-5.0 qetm=1929) ALKALINE PHOSPHATASE 65 U/L 40-150 (BEAKER) (test bbiy=000) BILIRUBIN TOTAL (BEAKER) 0.4 mg/dL 0.2-1.2 (test xyaw=442) SODIUM (BEAKER) (test 139 meq/L 136-145 ismj=744) POTASSIUM (BEAKER) (test 3.0 meq/L 3.5-5.1 fvzb=486) CHLORIDE (BEAKER) (test 104 meq/L 98-107 kwub=174) CO2 (BEAKER) (test 24 meq/L 22-29 ypjz=899) BLOOD UREA NITROGEN 38 mg/dL 7-21 (BEAKER) (test lprm=016) CREATININE (BEAKER) (test 3.18 mg/dL 0.57-1.25 bfde=990) GLUCOSE RANDOM (BEAKER) 141 mg/dL 70-105 (test msgy=756) CALCIUM (BEAKER) (test 9.1 mg/dL 8.4-10.2 iihe=952) AST (SGOT) (BEAKER) (test 21 U/L 5-34 xgjs=503) ALT (SGPT) (BEAKER) (test 17 U/L 6-55 rpjo=747) EGFR (BEAKER) (test 15 mL/min/1.73 sq m ESTIMATED GFR IS NOT ztmd=1946) ACCURATE CREATININE CLEARANCE IN PREDICTING GLOMERULAR FILTRATION RATE. ESTIMATED GFR IS NOT APPLICABLE FOR DIALYSIS PATIENTS. [id number] 06:47:00 Test Item Value Reference Range Comments PHOSPHORUS (BEAKER) (test oiyl=609) 2.8 mg/dL 2.3-4.7 [id number] 06:47:00 Test Item Value Reference Range Comments MAGNESIUM (BEAKER) (test tllf=080) 1.6 mg/dL 1.6-2.6 CBC W/PLT COUNT & AUTO [id number] 06:42:00 Test Item Value Reference Range Comments WHITE BLOOD CELL COUNT (BEAKER) (test emnm=508) 6.4 K/ L 3.5-10.5 RED BLOOD CELL COUNT (BEAKER) (test aros=118) 2.86 M/ L 3.93-5.22 HEMOGLOBIN (BEAKER) (test geqa=534) 8.8 GM/DL 11.2-15.7 HEMATOCRIT (BEAKER) (test waqe=986) 27.7 % 34.1-44.9 MEAN CORPUSCULAR VOLUME (BEAKER) (test xsnf=628) 96.9 fL 79.4-94.8 MEAN CORPUSCULAR HEMOGLOBIN (BEAKER) (test 30.8 pg 25.6-32.2 tmkp=608) MEAN CORPUSCULAR HEMOGLOBIN CONC (BEAKER) (test 31.8 GM/DL 32.2-35.5 exdd=546) RED CELL DISTRIBUTION WIDTH (BEAKER) (test 13.9 % 11.7-14.4 cvrz=041) PLATELET COUNT (BEAKER) (test udjx=651) 261 K/CU MM 150-450 MEAN PLATELET VOLUME (BEAKER) (test zzet=008) 9.1 fL 9.4-12.3 NUCLEATED RED BLOOD CELLS (BEAKER) (test 0 /100 WBC 0-0 atfu=448) NEUTROPHILS RELATIVE PERCENT (BEAKER) (test 73 % kryx=386) LYMPHOCYTES RELATIVE PERCENT (BEAKER) (test 17 % luni=539) MONOCYTES RELATIVE PERCENT (BEAKER) (test 7 % pgxa=827) EOSINOPHILS RELATIVE PERCENT (BEAKER) (test 2 % xigw=851) BASOPHILS RELATIVE PERCENT (BEAKER) (test 1 % qucs=265) NEUTROPHILS ABSOLUTE COUNT (BEAKER) (test 4.66 K/ L 1.56-6.13 kest=392) LYMPHOCYTES ABSOLUTE COUNT (BEAKER) (test 1.07 K/ L 1.18-3.74 qgjr=293) MONOCYTES ABSOLUTE COUNT (BEAKER) (test 0.44 K/ L 0.24-0.36 liiq=411) EOSINOPHILS ABSOLUTE COUNT (BEAKER) (test 0.12 K/ L 0.04-0.36 ysss=857) BASOPHILS ABSOLUTE COUNT (BEAKER) (test 0.04 K/ L 0.01-0.08 jldg=046) IMMATURE GRANULOCYTES-RELATIVE PERCENT (BEAKER) 1 % 0-1 (test rcmj=8345) CBC (HEMOGRAM ONLY)2018-12-02 06:42:00 Test Item Value Reference Range Comments WHITE BLOOD CELL COUNT (BEAKER) (test zene=378) 6.4 K/ L 3.5-10.5 RED BLOOD CELL COUNT (BEAKER) (test ucik=646) 2.86 M/ L 3.93-5.22 HEMOGLOBIN (BEAKER) (test beck=215) 8.8 GM/DL 11.2-15.7 HEMATOCRIT (BEAKER) (test mzfh=463) 27.7 % 34.1-44.9 MEAN CORPUSCULAR VOLUME (BEAKER) (test cgur=843) 96.9 fL 79.4-94.8 MEAN CORPUSCULAR HEMOGLOBIN (BEAKER) (test 30.8 pg 25.6-32.2 acuy=628) MEAN CORPUSCULAR HEMOGLOBIN CONC (BEAKER) (test 31.8 GM/DL 32.2-35.5 crgb=529) RED CELL DISTRIBUTION WIDTH (BEAKER) (test 13.9 % 11.7-14.4 cgwy=811) PLATELET COUNT (BEAKER) (test mvfy=560) 261 K/CU MM 150-450 MEAN PLATELET VOLUME (BEAKER) (test oarw=461) 9.1 fL 9.4-12.3 NUCLEATED RED BLOOD CELLS (BEAKER) (test 0 /100 WBC 0-0 wrut=640) [id number] 06:35:00 Test Item Value Reference Range Comments PARTIAL THROMBOPLASTIN TIME (BEAKER) (test 73.5 seconds 22.5-36.0 dqkr=803) CALCIUM, [id number] 06:31:00 Test Item Value Reference Range Comments CALCIUM IONIZED (BEAKER) (test ggzy=008) 1.09 mmol/L 1.12-1.27 PH, BLOOD (BEAKER) (test zumf=5817) 7.43 [id number] 00:08:00 Test Item Value Reference Range Comments PARTIAL THROMBOPLASTIN TIME (BEAKER) (test 90.3 seconds 22.5-36.0 hctd=663) POCT-GLUCOSE [id number] 21:20:00 Test Item Value Reference Range Comments POC-GLUCOSE METER (BEAKER) 138 mg/dL 70-110 TESTED AT [address] (test ysob=9364) [facility] [address] BASIC METABOLIC [id number] 18:42:00 Test Item Value Reference Range Comments SODIUM (BEAKER) (test 138 meq/L 136-145 egxa=374) POTASSIUM (BEAKER) (test 3.5 meq/L 3.5-5.1 mbmd=298) CHLORIDE (BEAKER) (test 102 meq/L 98-107 sotd=454) CO2 (BEAKER) (test 26 meq/L 22-29 kell=914) BLOOD UREA NITROGEN 38 mg/dL 7-21 (BEAKER) (test vyyz=198) CREATININE (BEAKER) (test 3.64 mg/dL 0.57-1.25 obmh=770) GLUCOSE RANDOM (BEAKER) 121 mg/dL 70-105 (test spxa=000) CALCIUM (BEAKER) (test 9.1 mg/dL 8.4-10.2 ujpl=035) EGFR (BEAKER) (test 12 mL/min/1.73 sq m ESTIMATED GFR IS NOT ldfh=6462) ACCURATE CREATININE CLEARANCE IN PREDICTING GLOMERULAR FILTRATION RATE. ESTIMATED GFR IS NOT APPLICABLE FOR DIALYSIS PATIENTS. [id number] 18:26:00 Test Item Value Reference Range Comments PARTIAL THROMBOPLASTIN TIME (BEAKER) (test 80.9 seconds 22.5-36.0 pfew=466) POCT-GLUCOSE [id number] 17:22:00 Test Item Value Reference Range Comments POC-GLUCOSE METER (BEAKER) 129 mg/dL 70-110 TESTED AT [address] (test xpdg=5339) [facility] [address] POCT-GLUCOSE [id number] 12:51:00 Test Item Value Reference Range Comments POC-GLUCOSE METER (BEAKER) 240 mg/dL 70-110 TESTED AT [address] (test aqwf=1947) [facility] [address] [id number] 12:31:00 Test Item Value Reference Range Comments RPR SCREEN (BEAKER) (test ywim=025) Nonreactive Nonreactive [id number] 12:18:00 Test Item Value Reference Range Comments PARTIAL THROMBOPLASTIN TIME (BEAKER) (test 61.7 seconds 22.5-36.0 hsyq=696) EOSINOPHIL SMEAR, [id number] 10:02:00 Test Item Value Reference Range Comments EOSINOPHIL SMEAR, URINE (BEAKER) Rare EOS=less than 5% WBCs No EOS seen (test jgwy=2465) seen are EOS POCT-GLUCOSE [id number] 09:06:00 Test Item Value Reference Range Comments POC-GLUCOSE METER (BEAKER) 137 mg/dL 70-[address] [facility] [address] (test asbd=8571) [place] [address] CREATININE, RANDOM [id number] 08:22:00 Test Item Value Reference Range Comments CREATININE URINE (BEAKER) (test xnpf=959) 54.1 mg/dL Reference Range: No NormalsPROTEIN, RANDOM [id number] 08:22:00 Test Item Value Reference Range Comments PROTEIN, URINE (BEAKER) (test myeu=7840) 44 mg/dL 0-14 VITAMIN B12 AND [id number] 08:14:00 Test Item Value Reference Range Comments VITAMIN B12 (BEAKER) (test pbcn=860) 455 pg/mL 213-816 FOLATE (BEAKER) (test ogor=159) 9.9 ng/mL >=7.0 COMPREHENSIVE METABOLIC [id number] 06:59:00 Test Item Value Reference Range Comments TOTAL PROTEIN (BEAKER) 7.0 gm/dL 6.0-8.3 (test ztyz=991) ALBUMIN (BEAKER) (test 4.0 g/dL 3.5-5.0 rhah=1311) ALKALINE PHOSPHATASE 71 U/L 40-150 (BEAKER) (test bizd=238) BILIRUBIN TOTAL (BEAKER) 0.5 mg/dL 0.2-1.2 (test ocdk=345) SODIUM (BEAKER) (test 141 meq/L 136-145 lmtl=723) POTASSIUM (BEAKER) (test 3.3 meq/L 3.5-5.1 irxb=063) CHLORIDE (BEAKER) (test 103 meq/L 98-107 yran=353) CO2 (BEAKER) (test 25 meq/L 22-29 wyfu=093) BLOOD UREA NITROGEN 33 mg/dL 7-21 (BEAKER) (test labx=892) CREATININE (BEAKER) (test 4.20 mg/dL 0.57-1.25 mkwg=295) GLUCOSE RANDOM (BEAKER) 135 mg/dL 70-105 (test msrz=915) CALCIUM (BEAKER) (test 9.3 mg/dL 8.4-10.2 oshj=044) AST (SGOT) (BEAKER) (test 20 U/L 5-34 iybi=464) ALT (SGPT) (BEAKER) (test 17 U/L 6-55 qzto=898) EGFR (BEAKER) (test 11 mL/min/1.73 sq m ESTIMATED GFR IS NOT xkld=3188) ACCURATE CREATININE CLEARANCE IN PREDICTING GLOMERULAR FILTRATION RATE. ESTIMATED GFR IS NOT APPLICABLE FOR DIALYSIS PATIENTS. [id number] 06:34:00 Test Item Value Reference Range Comments PHOSPHORUS (BEAKER) (test dwzj=458) 3.2 mg/dL 2.3-4.7 [id number] 06:34:00 Test Item Value Reference Range Comments MAGNESIUM (BEAKER) (test kgxf=777) 1.7 mg/dL 1.6-2.6 URINALYSIS W/ [id number] 04:37:00 Test Item Value Reference Range Comments COLOR (BEAKER) (test kark=558) Light Yellow CLARITY (BEAKER) (test aqmm=281) Clear SPECIFIC GRAVITY UA (BEAKER) (test qouz=223) 1.007 1.001-1.035 PH UA (BEAKER) (test qhhj=551) 8.0 5.0-8.0 PROTEIN UA (BEAKER) (test uqvd=292) 50 mg/dL Negative GLUCOSE UA (BEAKER) (test eokw=097) 150 mg/dL Negative KETONES UA (BEAKER) (test azto=751) 10 mg/dL Negative BILIRUBIN UA (BEAKER) (test swpt=836) Negative Negative BLOOD UA (BEAKER) (test qrju=235) Small Negative NITRITE UA (BEAKER) (test sans=078) Negative Negative LEUKOCYTE ESTERASE UA (BEAKER) (test deqv=629) Small Negative UROBILINOGEN UA (BEAKER) (test cpdz=305) 0.2 mg/dL 0.2-1.0 RBC UA (BEAKER) (test ftyb=368) 5 /HPF WBC UA (BEAKER) (test ncqt=160) 26 /HPF BACTERIA (BEAKER) (test bwqy=237) Few SQUAMOUS EPITHELIAL (BEAKER) (test ufkh=688) 2 /HPF HYALINE CASTS (BEAKER) (test ydsk=248) 2 /LPF CRYSTALS, URINE (BEAKER) (test zdcp=9477) None Seen YEAST (BEAKER) (test visa=0936) Few SOURCE(BEAKER) (test ppzc=0165) [id number] 04:21:00 Test Item Value Reference Range Comments PARTIAL THROMBOPLASTIN TIME (BEAKER) (test 53.5 seconds 22.5-36.0 zrjr=303) CBC W/PLT COUNT & AUTO [id number] 04:09:00 Test Item Value Reference Range Comments WHITE BLOOD CELL COUNT (BEAKER) (test cgdt=332) 7.7 K/ L 3.5-10.5 RED BLOOD CELL COUNT (BEAKER) (test gytk=533) 2.91 M/ L 3.93-5.22 HEMOGLOBIN (BEAKER) (test tram=575) 9.0 GM/DL 11.2-15.7 HEMATOCRIT (BEAKER) (test jjha=681) 27.8 % 34.1-44.9 MEAN CORPUSCULAR VOLUME (BEAKER) (test kvch=780) 95.5 fL 79.4-94.8 MEAN CORPUSCULAR HEMOGLOBIN (BEAKER) (test 30.9 pg 25.6-32.2 ajnx=731) MEAN CORPUSCULAR HEMOGLOBIN CONC (BEAKER) (test 32.4 GM/DL 32.2-35.5 ozko=393) RED CELL DISTRIBUTION WIDTH (BEAKER) (test 13.9 % 11.7-14.4 ocus=980) PLATELET COUNT (BEAKER) (test dpgf=459) 275 K/CU MM 150-450 MEAN PLATELET VOLUME (BEAKER) (test bypa=377) 9.1 fL 9.4-12.3 NUCLEATED RED BLOOD CELLS (BEAKER) (test 0 /100 WBC 0-0 ipqb=162) NEUTROPHILS RELATIVE PERCENT (BEAKER) (test 78 % auaf=419) LYMPHOCYTES RELATIVE PERCENT (BEAKER) (test 12 % oczo=389) MONOCYTES RELATIVE PERCENT (BEAKER) (test 8 % bjws=713) EOSINOPHILS RELATIVE PERCENT (BEAKER) (test 1 % weql=676) BASOPHILS RELATIVE PERCENT (BEAKER) (test 1 % ucyr=559) NEUTROPHILS ABSOLUTE COUNT (BEAKER) (test 5.94 K/ L 1.56-6.13 ncun=798) LYMPHOCYTES ABSOLUTE COUNT (BEAKER) (test 0.94 K/ L 1.18-3.74 daib=472) MONOCYTES ABSOLUTE COUNT (BEAKER) (test 0.57 K/ L 0.24-0.36 cyux=383) EOSINOPHILS ABSOLUTE COUNT (BEAKER) (test 0.09 K/ L 0.04-0.36 jeka=737) BASOPHILS ABSOLUTE COUNT (BEAKER) (test 0.07 K/ L 0.01-0.08 jqxb=296) IMMATURE GRANULOCYTES-RELATIVE PERCENT (BEAKER) 1 % 0-1 (test mhwq=6474) CALCIUM, [id number] 04:08:00 Test Item Value Reference Range Comments CALCIUM IONIZED (BEAKER) (test msqr=859) 1.12 mmol/L 1.12-1.27 PH, BLOOD (BEAKER) (test lpby=8137) 7.44 POCT-GLUCOSE [id number] 21:13:00 Test Item Value Reference Range Comments POC-GLUCOSE METER (BEAKER) 126 mg/dL 70-110 TESTED AT [address] (test lyhl=3474) [facility] [address] BASIC METABOLIC [id number] 18:33:00 Test Item Value Reference Range Comments SODIUM (BEAKER) (test 140 meq/L 136-145 mhoa=966) POTASSIUM (BEAKER) (test 3.4 meq/L 3.5-5.1 sajf=555) CHLORIDE (BEAKER) (test 102 meq/L 98-107 cclq=352) CO2 (BEAKER) (test 26 meq/L 22-29 bfgk=618) BLOOD UREA NITROGEN 30 mg/dL 7-21 (BEAKER) (test mfps=628) CREATININE (BEAKER) (test 4.50 mg/dL 0.57-1.25 rpkz=008) GLUCOSE RANDOM (BEAKER) 131 mg/dL 70-105 (test hnfl=718) CALCIUM (BEAKER) (test 9.1 mg/dL 8.4-10.2 npgp=467) EGFR (BEAKER) (test 10 mL/min/1.73 sq m ESTIMATED GFR IS NOT cjxz=1308) ACCURATE CREATININE CLEARANCE IN PREDICTING GLOMERULAR FILTRATION RATE. ESTIMATED GFR IS NOT APPLICABLE FOR DIALYSIS PATIENTS. POCT-GLUCOSE [id number] 18:12:00 Test Item Value Reference Range Comments POC-GLUCOSE METER (BEAKER) 147 mg/dL 70-110 TESTED AT [address] (test nihy=1616) [place] [id number] POCT-GLUCOSE [id number] 13:42:00 Test Item Value Reference Range Comments POC-GLUCOSE METER (BEAKER) 136 mg/dL 70-110 TESTED AT [address] (test ieah=8623) [place] [id number] POCT-GLUCOSE [id number] 09:22:00 Test Item Value Reference Range Comments POC-GLUCOSE METER (BEAKER) 134 mg/dL 70-110 TESTED AT [address] (test wgja=6276) [place] [id number] B-TYPE NATRIURETIC FACTOR (BNP)[id number] 02:02:00 Test Item Value Reference Range Comments B-TYPE NATRIURETIC PEPTIDE (BEAKER) (test 747 pg/mL 0-100 gmvx=619) TROPONIN [id number] 01:55:00 Test Item Value Reference Range Comments TROPONIN I (BEAKER) (test edjd=125) 0.04 ng/mL 0.00-0.03 Troponin I (TnI) levels must be interpreted in the context of the presenting symptoms and the clinical findings. Elevated TnI levels indicate myocardial damage, but are not specific for ischemic heart disease. Elevated TnI levels are seen in patients with other cardiac conditions (including myocarditis and congestive heart failure), and slight TnI elevations occur in patients with other conditions, including sepsis, renal failure, acidosis, acute neurological disease, and persistent tachyarrhythmia.[id number] 01:55:00 Test Item Value Reference Range Comments PARTIAL THROMBOPLASTIN TIME (BEAKER) (test 73.6 seconds 22.5-36.0 ovdc=201) COMPREHENSIVE METABOLIC [id number] 01:49:00 Test Item Value Reference Range Comments TOTAL PROTEIN (BEAKER) 7.1 gm/dL 6.0-8.3 (test aatz=945) ALBUMIN (BEAKER) (test 4.1 g/dL 3.5-5.0 bkkl=1914) ALKALINE PHOSPHATASE 71 U/L 40-150 (BEAKER) (test qdie=821) BILIRUBIN TOTAL (BEAKER) 0.5 mg/dL 0.2-1.2 (test tlwa=102) SODIUM (BEAKER) (test 139 meq/L 136-145 gfpg=210) POTASSIUM (BEAKER) (test 3.3 meq/L 3.5-5.1 fstn=673) CHLORIDE (BEAKER) (test 100 meq/L 98-107 mhvw=573) CO2 (BEAKER) (test 26 meq/L 22-29 hmlt=643) BLOOD UREA NITROGEN 27 mg/dL 7-21 (BEAKER) (test pdxb=840) CREATININE (BEAKER) (test 4.91 mg/dL 0.57-1.25 aqkn=839) GLUCOSE RANDOM (BEAKER) 124 mg/dL 70-105 (test wjjz=009) CALCIUM (BEAKER) (test 9.0 mg/dL 8.4-10.2 qley=125) AST (SGOT) (BEAKER) (test 19 U/L 5-34 ybrl=776) ALT (SGPT) (BEAKER) (test 15 U/L 6-55 hdgz=856) EGFR (BEAKER) (test 9 mL/min/1.73 sq m ESTIMATED GFR IS NOT bqyp=0409) ACCURATE CREATININE CLEARANCE IN PREDICTING GLOMERULAR FILTRATION RATE. ESTIMATED GFR IS NOT APPLICABLE FOR DIALYSIS PATIENTS. [id number] 01:48:00 Test Item Value Reference Range Comments PHOSPHORUS (BEAKER) (test uodt=402) 3.5 mg/dL 2.3-4.7 [id number] 01:48:00 Test Item Value Reference Range Comments MAGNESIUM (BEAKER) (test odez=465) 1.8 mg/dL 1.6-2.6 CALCIUM, [id number] 01:27:00 Test Item Value Reference Range Comments CALCIUM IONIZED (BEAKER) (test sjkl=008) 1.07 mmol/L 1.12-1.27 PH, BLOOD (BEAKER) (test lcdy=9657) 7.41 CBC W/PLT COUNT & AUTO [id number] 01:25:00 Test Item Value Reference Range Comments WHITE BLOOD CELL COUNT (BEAKER) (test drei=303) 7.1 K/ L 3.5-10.5 RED BLOOD CELL COUNT (BEAKER) (test vhuo=721) 2.78 M/ L 3.93-5.22 HEMOGLOBIN (BEAKER) (test otij=148) 8.7 GM/DL 11.2-15.7 HEMATOCRIT (BEAKER) (test xkql=716) 26.6 % 34.1-44.9 MEAN CORPUSCULAR VOLUME (BEAKER) (test aezx=512) 95.7 fL 79.4-94.8 MEAN CORPUSCULAR HEMOGLOBIN (BEAKER) (test 31.3 pg 25.6-32.2 pqqh=700) MEAN CORPUSCULAR HEMOGLOBIN CONC (BEAKER) (test 32.7 GM/DL 32.2-35.5 swrc=056) RED CELL DISTRIBUTION WIDTH (BEAKER) (test 13.8 % 11.7-14.4 sjen=645) PLATELET COUNT (BEAKER) (test qcmb=355) 251 K/CU MM 150-450 MEAN PLATELET VOLUME (BEAKER) (test nxmx=319) 8.5 fL 9.4-12.3 NUCLEATED RED BLOOD CELLS (BEAKER) (test 0 /100 WBC 0-0 esef=802) NEUTROPHILS RELATIVE PERCENT (BEAKER) (test 78 % wbhs=884) LYMPHOCYTES RELATIVE PERCENT (BEAKER) (test 13 % xpox=898) MONOCYTES RELATIVE PERCENT (BEAKER) (test 7 % glkh=195) EOSINOPHILS RELATIVE PERCENT (BEAKER) (test 1 % pthp=465) BASOPHILS RELATIVE PERCENT (BEAKER) (test 1 % bgyi=089) NEUTROPHILS ABSOLUTE COUNT (BEAKER) (test 5.51 K/ L 1.56-6.13 wgmx=144) LYMPHOCYTES ABSOLUTE COUNT (BEAKER) (test 0.93 K/ L 1.18-3.74 srdq=723) MONOCYTES ABSOLUTE COUNT (BEAKER) (test 0.49 K/ L 0.24-0.36 zhan=281) EOSINOPHILS ABSOLUTE COUNT (BEAKER) (test 0.04 K/ L 0.04-0.36 gwpu=222) BASOPHILS ABSOLUTE COUNT (BEAKER) (test 0.05 K/ L 0.01-0.08 kqbc=865) IMMATURE GRANULOCYTES-RELATIVE PERCENT (BEAKER) 0 % 0-1 (test xdzb=7941) POCT-GLUCOSE [id number] 21:31:00 Test Item Value Reference Range Comments POC-GLUCOSE METER (BEAKER) 125 mg/dL 70-110 TESTED AT [address] (test vpva=1560) [place] [address] TROPONIN [id number] 18:55:00 Test Item Value Reference Range Comments TROPONIN I (BEAKER) (test pucb=510) 0.05 ng/mL 0.00-0.03 Troponin I (TnI) levels must be interpreted in the context of the presenting symptoms and the clinical findings. Elevated TnI levels indicate myocardial damage, but are not specific for ischemic heart disease. Elevated TnI levels are seen in patients with other cardiac conditions (including myocarditis and congestive heart failure), and slight TnI elevations occur in patients with other conditions, including sepsis, renal failure, acidosis, acute neurological disease, and persistent tachyarrhythmia.POCT-GLUCOSE [id number] 18:04:00 Test Item Value Reference Range Comments POC-GLUCOSE METER (BEAKER) 140 mg/dL 70-110 TESTED AT [address] (test djsy=3332) [place] [address] BASIC METABOLIC [id number] 17:31:00 Test Item Value Reference Range Comments SODIUM (BEAKER) (test 138 meq/L 136-145 zzrs=837) POTASSIUM (BEAKER) (test 3.5 meq/L 3.5-5.1 gntq=765) CHLORIDE (BEAKER) (test 100 meq/L 98-107 rbcc=194) CO2 (BEAKER) (test 27 meq/L 22-29 fvsf=067) BLOOD UREA NITROGEN 23 mg/dL 7-21 (BEAKER) (test czod=555) CREATININE (BEAKER) (test 4.74 mg/dL 0.57-1.25 lqse=353) GLUCOSE RANDOM (BEAKER) 125 mg/dL 70-105 (test omoy=963) CALCIUM (BEAKER) (test 8.8 mg/dL 8.4-10.2 orhm=833) EGFR (BEAKER) (test 9 mL/min/1.73 sq m ESTIMATED GFR IS NOT aoct=4781) ACCURATE CREATININE CLEARANCE IN PREDICTING GLOMERULAR FILTRATION RATE. ESTIMATED GFR IS NOT APPLICABLE FOR DIALYSIS PATIENTS. POCT-GLUCOSE [id number] 13:03:00 Test Item Value Reference Range Comments POC-GLUCOSE METER (BEAKER) 137 mg/dL 70-110 TESTED AT [address] (test clnu=9587) [place] [id number] TROPONIN [id number] 12:03:00 Test Item Value Reference Range Comments TROPONIN I (BEAKER) (test seyo=889) 0.06 ng/mL 0.00-0.03 Troponin I (TnI) levels must be interpreted in the context of the presenting symptoms and the clinical findings. Elevated TnI levels indicate myocardial damage, but are not specific for ischemic heart disease. Elevated TnI levels are seen in patients with other cardiac conditions (including myocarditis and congestive heart failure), and slight TnI elevations occur in patients with other conditions, including sepsis, renal failure, acidosis, acute neurological disease, and persistent tachyarrhythmia.[id number] 11:43:00 Test Item Value Reference Range Comments PARTIAL THROMBOPLASTIN TIME (BEAKER) (test 72.3 seconds 22.5-36.0 innd=931) POCT-GLUCOSE [id number] 08:15:00 Test Item Value Reference Range Comments POC-GLUCOSE METER (BEAKER) 131 mg/dL 70-110 TESTED AT [address] (test ptlb=2734) [place] [address] [id number] 05:18:00 Test Item Value Reference Range Comments PARTIAL THROMBOPLASTIN TIME (BEAKER) (test 74.2 seconds 22.5-36.0 ofmz=154) [id number] 03:28:00 Test Item Value Reference Range Comments PARTIAL THROMBOPLASTIN TIME (BEAKER) (test 136.3 seconds 22.5-36.0 fmfq=609) COMPREHENSIVE METABOLIC [id number] 02:40:00 Test Item Value Reference Range Comments TOTAL PROTEIN (BEAKER) 7.2 gm/dL 6.0-8.3 (test xaka=340) ALBUMIN (BEAKER) (test 4.1 g/dL 3.5-5.0 dlcu=2369) ALKALINE PHOSPHATASE 77 U/L 40-150 (BEAKER) (test xlgz=049) BILIRUBIN TOTAL (BEAKER) 0.6 mg/dL 0.2-1.2 (test fonz=180) SODIUM (BEAKER) (test 137 meq/L 136-145 smvy=829) POTASSIUM (BEAKER) (test 3.5 meq/L 3.5-5.1 rago=773) CHLORIDE (BEAKER) (test 97 meq/L 98-107 qivg=449) CO2 (BEAKER) (test 26 meq/L 22-29 jmdi=463) BLOOD UREA NITROGEN 17 mg/dL 7-21 (BEAKER) (test bptm=419) CREATININE (BEAKER) (test 4.08 mg/dL 0.57-1.25 ztrr=572) GLUCOSE RANDOM (BEAKER) 129 mg/dL 70-105 (test dghy=812) CALCIUM (BEAKER) (test 9.1 mg/dL 8.4-10.2 xcgy=785) AST (SGOT) (BEAKER) (test 22 U/L 5-34 saij=854) ALT (SGPT) (BEAKER) (test 18 U/L 6-55 wgqb=491) EGFR (BEAKER) (test 11 mL/min/1.73 sq m ESTIMATED GFR IS NOT nlvr=3207) ACCURATE CREATININE CLEARANCE IN PREDICTING GLOMERULAR FILTRATION RATE. ESTIMATED GFR IS NOT APPLICABLE FOR DIALYSIS PATIENTS. [id number] 02:21:00 Test Item Value Reference Range Comments PHOSPHORUS (BEAKER) (test cjrf=888) 3.2 mg/dL 2.3-4.7 [id number] 02:21:00 Test Item Value Reference Range Comments MAGNESIUM (BEAKER) (test nlij=296) 1.8 mg/dL 1.6-2.6 CALCIUM, [id number] 02:03:00 Test Item Value Reference Range Comments CALCIUM IONIZED (BEAKER) (test iwic=590) 1.06 mmol/L 1.12-1.27 PH, BLOOD (BEAKER) (test tybx=0320) 7.39 CBC W/PLT COUNT & AUTO [id number] 01:57:00 Test Item Value Reference Range Comments WHITE BLOOD CELL COUNT (BEAKER) (test hfij=213) 6.7 K/ L 3.5-10.5 RED BLOOD CELL COUNT (BEAKER) (test uxde=788) 2.84 M/ L 3.93-5.22 HEMOGLOBIN (BEAKER) (test ciie=005) 8.7 GM/DL 11.2-15.7 HEMATOCRIT (BEAKER) (test lmjx=526) 26.7 % 34.1-44.9 MEAN CORPUSCULAR VOLUME (BEAKER) (test qplo=540) 94.0 fL 79.4-94.8 MEAN CORPUSCULAR HEMOGLOBIN (BEAKER) (test 30.6 pg 25.6-32.2 oway=146) MEAN CORPUSCULAR HEMOGLOBIN CONC (BEAKER) (test 32.6 GM/DL 32.2-35.5 shbr=878) RED CELL DISTRIBUTION WIDTH (BEAKER) (test 14.0 % 11.7-14.4 htcc=229) PLATELET COUNT (BEAKER) (test mkbt=372) 252 K/CU MM 150-450 MEAN PLATELET VOLUME (BEAKER) (test zkmp=948) 8.9 fL 9.4-12.3 NUCLEATED RED BLOOD CELLS (BEAKER) (test 0 /100 WBC 0-0 xant=529) NEUTROPHILS RELATIVE PERCENT (BEAKER) (test 81 % kbxf=717) LYMPHOCYTES RELATIVE PERCENT (BEAKER) (test 11 % iytq=701) MONOCYTES RELATIVE PERCENT (BEAKER) (test 7 % dtjt=655) EOSINOPHILS RELATIVE PERCENT (BEAKER) (test 0 % nvhx=201) BASOPHILS RELATIVE PERCENT (BEAKER) (test 1 % qjgo=626) NEUTROPHILS ABSOLUTE COUNT (BEAKER) (test 5.39 K/ L 1.56-6.13 gebs=968) LYMPHOCYTES ABSOLUTE COUNT (BEAKER) (test 0.73 K/ L 1.18-3.74 xsok=091) MONOCYTES ABSOLUTE COUNT (BEAKER) (test 0.43 K/ L 0.24-0.36 sadt=251) EOSINOPHILS ABSOLUTE COUNT (BEAKER) (test 0.02 K/ L 0.04-0.36 mzcq=118) BASOPHILS ABSOLUTE COUNT (BEAKER) (test 0.06 K/ L 0.01-0.08 ilha=042) IMMATURE GRANULOCYTES-RELATIVE PERCENT (BEAKER) 0 % 0-1 (test apzz=1668) POCT-GLUCOSE [id number] 21:08:00 Test Item Value Reference Range Comments POC-GLUCOSE METER (BEAKER) 119 mg/dL 70-[address] [facility] [address] [facility] (test zxni=6408) [facility] [address] POCT-GLUCOSE [id number] 20:09:00 Test Item Value Reference Range Comments POC-GLUCOSE METER (BEAKER) 111 mg/dL 70-[address] [facility] [address] (test srgk=9783) [facility] [address] [id number] 19:38:00 Test Item Value Reference Range Comments PARTIAL THROMBOPLASTIN TIME (BEAKER) (test 73.3 seconds 22.5-36.0 onbh=642) BASIC METABOLIC [id number] 16:43:00 Test Item Value Reference Range Comments SODIUM (BEAKER) (test 140 meq/L 136-145 ltpw=973) POTASSIUM (BEAKER) (test 3.5 meq/L 3.5-5.1 zlfe=677) CHLORIDE (BEAKER) (test 101 meq/L 98-107 vayf=287) CO2 (BEAKER) (test 29 meq/L 22-29 nlwp=936) BLOOD UREA NITROGEN 30 mg/dL 7-21 (BEAKER) (test pqko=194) CREATININE (BEAKER) (test 5.94 mg/dL 0.57-1.25 ejnt=212) GLUCOSE RANDOM (BEAKER) 115 mg/dL 70-105 (test mpmb=091) CALCIUM (BEAKER) (test 8.8 mg/dL 8.4-10.2 ijdm=044) EGFR (BEAKER) (test 7 mL/min/1.73 sq m ESTIMATED GFR IS NOT cuco=0966) ACCURATE CREATININE CLEARANCE IN PREDICTING GLOMERULAR FILTRATION RATE. ESTIMATED GFR IS NOT APPLICABLE FOR DIALYSIS PATIENTS. URINE [id number] 14:36:00 Test Item Value Reference Range Comments CULTURE (BEAKER) (test KLEBSIELLA PNEUMONIAE >100,000 col/mL zwhu=6185) Klebsiella pneumoniae Amikacin (test code=1) Ampicillin + Sulbactam (test code=6) Aztreonam (test code=32) Cefepime (test code=51) Cefoxitin (test code=68) Ceftazidime (test code=27) Ceftriaxone (test code=52) Ertapenem (test code=38) Gentamicin (test code=18) Levofloxacin (test code=22) Meropenem (test code=34) Nitrofurantoin (test code=23) Piperacillin + Tazobactam (test code=29) Tetracycline (test code=2) Tobramycin (test code=25) Trimethoprim + Sulfamethoxazole (test code=47) POCT-GLUCOSE [id number] 13:17:00 Test Item Value Reference Range Comments POC-GLUCOSE METER (BEAKER) 143 mg/dL 70-[address] [facility] [address] [facility] (test nocu=0520) [facility] [address] URINE PROTEIN ELECTROPHORESIS, [id number] 10:08:00 Test Item Value Reference Range Comments PROTEIN, URINE (BEAKER) (test 66 mg/dL 0-14 qqfm=0366) ALBUMIN URINE ELP (BEAKER) 38.9 % (test wkik=7344) GAMMA GLOBULIN URINE (BEAKER) 61.1 % (test vcgz=0055) UPEP, ID-438 (BEAKER) (test Indistinct banding in gamma tqyu=9517) region. Urine MARKEL ordered for further clarification. [id number] (BEAKER) Cyn Burgos MD (test rnmh=8888) (electronic signature) [id number] 09:20:00 Test Item Value Reference Range Comments PARTIAL THROMBOPLASTIN TIME (BEAKER) (test 41.1 seconds 22.5-36.0 szsd=551) Prior to initiating heparinPROTEIN ELECTROPHORESIS, [id number] 08:56:00 Test Item Value Reference Range Comments ALBUMIN FRACTION (BEAKER) 3.2 g/dL 3.5-5.5 (test nicl=201) ALPHA 1 FRACTION (BEAKER) 0.2 g/dL 0.2-0.4 (test eadx=661) ALPHA 2 FRACTION (BEAKER) 1.0 g/dL 0.5-0.9 (test kbot=017) BETA FRACTION (BEAKER) (test 0.7 g/dL 0.6-1.1 qlcq=003) GAMMA GLOBULIN FRACTION 0.7 g/dL 0.7-1.7 (BEAKER) (test xtqw=502) INTERPRETATION-119 (BEAKER) Pattern suggestive of acute (test crkv=0059) inflammation. No monoclonal bands detected. [id number] (BEAKER) Cyn Burgos MD (test beep=4797) (electronic signature) PROTEIN TOTAL SERUM, SPEP 5.9 gm/dL 6.0-8.3 (BEAKER) (test lcvd=5949) POCT-GLUCOSE [id number] 08:36:00 Test Item Value Reference Range Comments POC-GLUCOSE METER (BEAKER) 144 mg/dL 70-[address] [facility] [address] (test mhoo=8407) [facility] [address] COMPREHENSIVE METABOLIC [id number] 05:48:00 Test Item Value Reference Range Comments TOTAL PROTEIN (BEAKER) 6.9 gm/dL 6.0-8.3 (test fxme=841) ALBUMIN (BEAKER) (test 4.0 g/dL 3.5-5.0 wiaq=3916) ALKALINE PHOSPHATASE 78 U/L 40-150 (BEAKER) (test sbbi=337) BILIRUBIN TOTAL (BEAKER) 0.6 mg/dL 0.2-1.2 (test usoq=708) SODIUM (BEAKER) (test 139 meq/L 136-145 vbmv=876) POTASSIUM (BEAKER) (test 3.3 meq/L 3.5-5.1 tuhj=990) CHLORIDE (BEAKER) (test 101 meq/L 98-107 krjy=070) CO2 (BEAKER) (test 25 meq/L 22-29 arbn=694) BLOOD UREA NITROGEN 37 mg/dL 7-21 (BEAKER) (test zxvv=310) CREATININE (BEAKER) (test 7.42 mg/dL 0.57-1.25 mzrc=224) GLUCOSE RANDOM (BEAKER) 134 mg/dL 70-105 (test qarn=806) CALCIUM (BEAKER) (test 9.0 mg/dL 8.4-10.2 ckas=393) AST (SGOT) (BEAKER) (test 25 U/L 5-34 loyl=413) ALT (SGPT) (BEAKER) (test 19 U/L 6-55 rlxv=054) EGFR (BEAKER) (test 5 mL/min/1.73 sq m ESTIMATED GFR IS NOT mksx=9481) ACCURATE CREATININE CLEARANCE IN PREDICTING GLOMERULAR FILTRATION RATE. ESTIMATED GFR IS NOT APPLICABLE FOR DIALYSIS PATIENTS. [id number] 05:01:00 Test Item Value Reference Range Comments PHOSPHORUS (BEAKER) (test qguv=709) 4.9 mg/dL 2.3-4.7 [id number] 05:01:00 Test Item Value Reference Range Comments MAGNESIUM (BEAKER) (test ttwg=926) 1.9 mg/dL 1.6-2.6 CBC W/PLT COUNT & AUTO [id number] 04:32:00 Test Item Value Reference Range Comments WHITE BLOOD CELL COUNT (BEAKER) (test rvit=953) 6.2 K/ L 3.5-10.5 RED BLOOD CELL COUNT (BEAKER) (test drqm=738) 2.94 M/ L 3.93-5.22 HEMOGLOBIN (BEAKER) (test nhek=100) 9.0 GM/DL 11.2-15.7 HEMATOCRIT (BEAKER) (test rjfe=026) 27.5 % 34.1-44.9 MEAN CORPUSCULAR VOLUME (BEAKER) (test ngjh=022) 93.5 fL 79.4-94.8 MEAN CORPUSCULAR HEMOGLOBIN (BEAKER) (test 30.6 pg 25.6-32.2 cbvs=053) MEAN CORPUSCULAR HEMOGLOBIN CONC (BEAKER) (test 32.7 GM/DL 32.2-35.5 pmmp=868) RED CELL DISTRIBUTION WIDTH (BEAKER) (test 13.9 % 11.7-14.4 ltqn=609) PLATELET COUNT (BEAKER) (test uazu=748) 244 K/CU MM 150-450 MEAN PLATELET VOLUME (BEAKER) (test vhwz=737) 9.4 fL 9.4-12.3 NUCLEATED RED BLOOD CELLS (BEAKER) (test 0 /100 WBC 0-0 avct=053) NEUTROPHILS RELATIVE PERCENT (BEAKER) (test 77 % glrm=978) LYMPHOCYTES RELATIVE PERCENT (BEAKER) (test 13 % amry=899) MONOCYTES RELATIVE PERCENT (BEAKER) (test 8 % ajtu=226) EOSINOPHILS RELATIVE PERCENT (BEAKER) (test 1 % nqpd=329) BASOPHILS RELATIVE PERCENT (BEAKER) (test 1 % qmjh=594) NEUTROPHILS ABSOLUTE COUNT (BEAKER) (test 4.79 K/ L 1.56-6.13 rljd=319) LYMPHOCYTES ABSOLUTE COUNT (BEAKER) (test 0.80 K/ L 1.18-3.74 iwvp=274) MONOCYTES ABSOLUTE COUNT (BEAKER) (test 0.51 K/ L 0.24-0.36 uizb=568) EOSINOPHILS ABSOLUTE COUNT (BEAKER) (test 0.04 K/ L 0.04-0.36 syhh=721) BASOPHILS ABSOLUTE COUNT (BEAKER) (test 0.05 K/ L 0.01-0.08 gyuj=081) IMMATURE GRANULOCYTES-RELATIVE PERCENT (BEAKER) 0 % 0-1 (test pvrk=1064) CALCIUM, [id number] 04:19:00 Test Item Value Reference Range Comments CALCIUM IONIZED (BEAKER) (test nlyv=469) 1.06 mmol/L 1.12-1.27 PH, BLOOD (BEAKER) (test islc=8842) 7.37 POCT-GLUCOSE [id number] 22:00:00 Test Item Value Reference Range Comments POC-GLUCOSE METER (BEAKER) 116 mg/dL 70-110 TESTED AT [address] (test jjqn=6400) [place] [id number] POCT-GLUCOSE [id number] 17:59:00 Test Item Value Reference Range Comments POC-GLUCOSE METER (BEAKER) 130 mg/dL 70-110 TESTED AT [address] (test dier=1154) [place] [id number] BASIC METABOLIC [id number] 17:01:00 Test Item Value Reference Range Comments SODIUM (BEAKER) (test 139 meq/L 136-145 mgbp=080) POTASSIUM (BEAKER) (test 3.5 meq/L 3.5-5.1 hnzy=704) CHLORIDE (BEAKER) (test 97 meq/L 98-107 ibek=703) CO2 (BEAKER) (test 29 meq/L 22-29 jbep=885) BLOOD UREA NITROGEN 68 mg/dL 7-21 (BEAKER) (test imbu=576) CREATININE (BEAKER) (test 11.26 mg/dL 0.57-1.25 rhls=551) GLUCOSE RANDOM (BEAKER) 113 mg/dL 70-105 (test pevj=804) CALCIUM (BEAKER) (test 8.2 mg/dL 8.4-10.2 xtfg=245) EGFR (BEAKER) (test 3 mL/min/1.73 sq m ESTIMATED GFR IS NOT vxar=9563) ACCURATE CREATININE CLEARANCE IN PREDICTING GLOMERULAR FILTRATION RATE. ESTIMATED GFR IS NOT APPLICABLE FOR DIALYSIS PATIENTS. RHEUMATOID FACTOR AB, REFLEX TO [id number] 14:07:00 Test Item Value Reference Range Comments RHEUMATOID FACTOR (BEAKER) (test stcw=613) Negative POCT-GLUCOSE [id number] 12:15:00 Test Item Value Reference Range Comments POC-GLUCOSE METER (BEAKER) 152 mg/dL 70-[address] [facility] [address] (test hxri=6010) [facility] [address] ANTI-NUCLEAR ANTIBODY (JUAN)2018-11-27 10:16:00 Test Item Value Reference Range Comments ANTI-NUCLEAR ANTIBODY (JUAN) (BEAKER) (test Negative Negative hygy=387) Test performed by IFA method.Test performed by IFA method.T4, [id number] 06: 28:00 Test Item Value Reference Range Comments FREE T4 (BEAKER) (test gntp=178) 0.57 ng/dL 0.70-1.48 [id number] 05:43:00 Test Item Value Reference Range Comments FERRITIN (BEAKER) (test diwj=074) 264 ng/mL 5-275 TSH/FREE T4 IF [id number] 05:30:00 Test Item Value Reference Range Comments THYROID STIMULATING HORMONE (BEAKER) (test 8.31 uIU/mL 0.35-4.94 cqqo=148) HEPATITIS PANEL, [id number] 05:26:00 Test Item Value Reference Range Comments HEPATITIS A IGM ANTIBODY (BEAKER) (test Nonreactive Nonreactive cuqx=109) HEPATITIS B CORE IGM ANTIBODY (BEAKER) (test Nonreactive Nonreactive arla=730) HEPATITIS C ANTIBODY (BEAKER) (test yjlc=494) Nonreactive Nonreactive HEPATITIS B SURFACE ANTIGEN (2) (BEAKER) (test Nonreactive Nonreactive dxmn=1496) COMPREHENSIVE METABOLIC [id number] 05:13:00 Test Item Value Reference Range Comments TOTAL PROTEIN (BEAKER) 6.3 gm/dL 6.0-8.3 (test iegn=240) ALBUMIN (BEAKER) (test 3.7 g/dL 3.5-5.0 izxs=1031) ALKALINE PHOSPHATASE 77 U/L 40-150 (BEAKER) (test oloh=634) BILIRUBIN TOTAL (BEAKER) 0.5 mg/dL 0.2-1.2 (test mqlj=045) SODIUM (BEAKER) (test 140 meq/L 136-145 mebz=347) POTASSIUM (BEAKER) (test 3.6 meq/L 3.5-5.1 hwaz=186) CHLORIDE (BEAKER) (test 98 meq/L 98-107 szvf=177) CO2 (BEAKER) (test 25 meq/L 22-29 mfmq=351) BLOOD UREA NITROGEN 67 mg/dL 7-21 (BEAKER) (test mqqa=206) CREATININE (BEAKER) (test 11.11 mg/dL 0.57-1.25 atdd=255) GLUCOSE RANDOM (BEAKER) 101 mg/dL 70-105 (test xuom=198) CALCIUM (BEAKER) (test 8.2 mg/dL 8.4-10.2 cjfq=131) AST (SGOT) (BEAKER) (test 27 U/L 5-34 fsxb=476) ALT (SGPT) (BEAKER) (test 20 U/L 6-55 rwad=643) EGFR (BEAKER) (test 3 mL/min/1.73 sq m ESTIMATED GFR IS NOT rkhh=9493) ACCURATE CREATININE CLEARANCE IN PREDICTING GLOMERULAR FILTRATION RATE. ESTIMATED GFR IS NOT APPLICABLE FOR DIALYSIS PATIENTS. COMPLEMENT COMPONENT [id number] 05:10:00 Test Item Value Reference Range Comments C4 COMPLEMENT (BEAKER) (test nevs=120) 43 mg/dL 15-57 COMPLEMENT COMPONENT [id number] 05:10:00 Test Item Value Reference Range Comments C3 COMPLEMENT (BEAKER) (test wqpr=385) 96 mg/dL 82-193 IRON, TIBC, % SAT. (WITHOUT FERRITIN)2018-11-27 05:10:00 Test Item Value Reference Range Comments IRON (BEAKER) (test jtwh=031) 23.0 ug/dL 40.0-160.0 TOTAL IRON BINDING CAPACITY (BEAKER) (test 274 ug/dL 250-450 fvrx=795) IRON % SATURATION (2) (BEAKER) (test oyzi=2566) 8 % 20-55 B-TYPE NATRIURETIC FACTOR (BNP)2018-11-27 05:02:00 Test Item Value Reference Range Comments B-TYPE NATRIURETIC PEPTIDE (BEAKER) (test 1874 pg/mL 0-100 cnbm=767) URIC [id number] 05:02:00 Test Item Value Reference Range Comments URIC ACID (BEAKER) (test cgzq=312) 6.2 mg/dL 2.6-7.2 [id number] 05:02:00 Test Item Value Reference Range Comments MAGNESIUM (BEAKER) (test vpow=554) 2.1 mg/dL 1.6-2.6 [id number] 05:02:00 Test Item Value Reference Range Comments PHOSPHORUS (BEAKER) (test bfvg=967) 8.7 mg/dL 2.3-4.7 CREATINE KINASE (CK)2018-11-27 05:02:00 Test Item Value Reference Range Comments CREATINE KINASE TOTAL (BEAKER) (test yezi=866) 546 U/L 29-200 RETICULOCYTE [id number] 04:40:00 Test Item Value Reference Range Comments RETICULOCYTE COUNT PCT (BEAKER) (test tmab=467) 0.9 % 0.5-1.7 CBC W/PLT COUNT & AUTO [id number] 04:40:00 Test Item Value Reference Range Comments WHITE BLOOD CELL COUNT (BEAKER) (test urmh=572) 6.0 K/ L 3.5-10.5 RED BLOOD CELL COUNT (BEAKER) (test ljkp=586) 3.13 M/ L 3.93-5.22 HEMOGLOBIN (BEAKER) (test cqum=525) 9.6 GM/DL 11.2-15.7 HEMATOCRIT (BEAKER) (test ornj=800) 28.5 % 34.1-44.9 MEAN CORPUSCULAR VOLUME (BEAKER) (test daoj=156) 91.1 fL 79.4-94.8 MEAN CORPUSCULAR HEMOGLOBIN (BEAKER) (test 30.7 pg 25.6-32.2 auwp=551) MEAN CORPUSCULAR HEMOGLOBIN CONC (BEAKER) (test 33.7 GM/DL 32.2-35.5 pypd=803) RED CELL DISTRIBUTION WIDTH (BEAKER) (test 14.2 % 11.7-14.4 dkmq=878) PLATELET COUNT (BEAKER) (test urka=144) 235 K/CU MM 150-450 MEAN PLATELET VOLUME (BEAKER) (test bsjx=279) 9.1 fL 9.4-12.3 NUCLEATED RED BLOOD CELLS (BEAKER) (test 0 /100 WBC 0-0 gvlz=869) NEUTROPHILS RELATIVE PERCENT (BEAKER) (test 76 % iiuk=131) LYMPHOCYTES RELATIVE PERCENT (BEAKER) (test 13 % iqpa=009) MONOCYTES RELATIVE PERCENT (BEAKER) (test 9 % hmoe=249) EOSINOPHILS RELATIVE PERCENT (BEAKER) (test 1 % utyh=695) BASOPHILS RELATIVE PERCENT (BEAKER) (test 1 % zacj=041) NEUTROPHILS ABSOLUTE COUNT (BEAKER) (test 4.57 K/ L 1.56-6.13 nyhy=036) LYMPHOCYTES ABSOLUTE COUNT (BEAKER) (test 0.81 K/ L 1.18-3.74 qpqy=668) MONOCYTES ABSOLUTE COUNT (BEAKER) (test 0.53 K/ L 0.24-0.36 sagq=098) EOSINOPHILS ABSOLUTE COUNT (BEAKER) (test 0.04 K/ L 0.04-0.36 uaip=874) BASOPHILS ABSOLUTE COUNT (BEAKER) (test 0.05 K/ L 0.01-0.08 twxj=693) IMMATURE GRANULOCYTES-RELATIVE PERCENT (BEAKER) 1 % 0-1 (test zpgm=0698) CALCIUM, [id number] 04:33:00 Test Item Value Reference Range Comments CALCIUM IONIZED (BEAKER) (test dsaq=373) 1.00 mmol/L 1.12-1.27 PH, BLOOD (BEAKER) (test jngu=6593) 7.36 POCT-GLUCOSE [id number] 04:20:00 Test Item Value Reference Range Comments POC-GLUCOSE METER (BEAKER) 110 mg/dL 70-[address] [facility] [address] (test sxxc=8912) [facility] [address] BASIC METABOLIC [id number] 20:54:00 Test Item Value Reference Range Comments SODIUM (BEAKER) (test 139 meq/L 136-145 vuvd=194) POTASSIUM (BEAKER) (test 3.5 meq/L 3.5-5.1 iwez=130) CHLORIDE (BEAKER) (test 98 meq/L 98-107 jfpb=915) CO2 (BEAKER) (test 25 meq/L 22-29 fash=232) BLOOD UREA NITROGEN 68 mg/dL 7-21 (BEAKER) (test izuo=740) CREATININE (BEAKER) (test 10.51 mg/dL 0.57-1.25 axeg=946) GLUCOSE RANDOM (BEAKER) 103 mg/dL 70-105 (test krno=884) CALCIUM (BEAKER) (test 8.1 mg/dL 8.4-10.2 xjzl=256) EGFR (BEAKER) (test 4 mL/min/1.73 sq m ESTIMATED GFR IS NOT cxjn=5390) ACCURATE CREATININE CLEARANCE IN PREDICTING GLOMERULAR FILTRATION RATE. ESTIMATED GFR IS NOT APPLICABLE FOR DIALYSIS PATIENTS. POCT-GLUCOSE [id number] 18:14:00 Test Item Value Reference Range Comments POC-GLUCOSE METER (BEAKER) 109 mg/dL 70-[address] [facility] [address] (test xlua=5700) [facility] [address] EOSINOPHIL SMEAR, [id number] 16:26:00 Test Item Value Reference Range Comments EOSINOPHIL SMEAR, URINE (BEAKER) Positive=greater than 5% No EOS seen (test juoa=6886) WBCs are EOS CREATININE, RANDOM [id number] 15:55:00 Test Item Value Reference Range Comments CREATININE URINE (BEAKER) (test xebz=681) 43.0 mg/dL Reference Range: No NormalsPROTEIN, RANDOM [id number] 15:55:00 Test Item Value Reference Range Comments PROTEIN, URINE (BEAKER) (test bmqi=4635) 66 mg/dL 0-14 SODIUM, RANDOM [id number] 15:55:00 Test Item Value Reference Range Comments SODIUM URINE (BEAKER) (test zaud=907) 89 meq/L Reference Range: No NormalsURINALYSIS W/ [id number] 15:52:00 Test Item Value Reference Range Comments COLOR (BEAKER) (test bual=534) Light Yellow CLARITY (BEAKER) (test jjpn=534) Clear SPECIFIC GRAVITY UA (BEAKER) (test kpaz=103) 1.006 1.001-1.035 PH UA (BEAKER) (test loth=874) 5.5 5.0-8.0 PROTEIN UA (BEAKER) (test ovzq=260) 70 mg/dL Negative GLUCOSE UA (BEAKER) (test kdlp=377) Negative Negative KETONES UA (BEAKER) (test vbpp=457) Negative Negative BILIRUBIN UA (BEAKER) (test zmxj=994) Negative Negative BLOOD UA (BEAKER) (test ubnq=184) Moderate Negative NITRITE UA (BEAKER) (test ohjs=997) Negative Negative LEUKOCYTE ESTERASE UA (BEAKER) (test mrom=919) Moderate Negative UROBILINOGEN UA (BEAKER) (test zrah=508) 0.2 mg/dL 0.2-1.0 RBC UA (BEAKER) (test snje=145) 6 /HPF WBC UA (BEAKER) (test ygyg=260) 29 /HPF SOURCE(BEAKER) (test kgmc=2869) U/S, RENAL, [id number] 15:05:00Reason for exam:->renal failureFINAL REPORT TECHNIQUE: Grayscale ultrasound of the kidneys [...] The bladder is decompressed by Hutchinson catheter. IMPRESSION:Unremarkable renal ultrasound. Signed: Yuriy Katz MDReport Verified Date/Time: 11/26/2018 15:05:19 Reading Location: [address] Radiology Reading Room BASIC METABOLIC [id number] 11:50:00 Test Item Value Reference Range Comments SODIUM (BEAKER) (test 139 meq/L 136-145 cbkp=251) POTASSIUM (BEAKER) (test 4.0 meq/L 3.5-5.1 jxkf=571) CHLORIDE (BEAKER) (test 95 meq/L 98-107 rtud=204) CO2 (BEAKER) (test 22 meq/L 22-29 tjro=635) BLOOD UREA NITROGEN 113 mg/dL 7-21 (BEAKER) (test fiul=539) CREATININE (BEAKER) (test 15.15 mg/dL 0.57-1.25 wztk=565) GLUCOSE RANDOM (BEAKER) 91 mg/dL 70-105 (test vzje=925) CALCIUM (BEAKER) (test 8.0 mg/dL 8.4-10.2 owvh=375) EGFR (BEAKER) (test 2 mL/min/1.73 sq m ESTIMATED GFR IS NOT nwrb=3072) ACCURATE CREATININE CLEARANCE IN PREDICTING GLOMERULAR FILTRATION RATE. ESTIMATED GFR IS NOT APPLICABLE FOR DIALYSIS PATIENTS. HEMOGLOBIN [id number] 11:39:00 Test Item Value Reference Range Comments HEMOGLOBIN A1C (BEAKER) (test bito=414) 7.2 % 4.3-6.1 POCT-GLUCOSE [id number] 11:34:00 Test Item Value Reference Range Comments POC-GLUCOSE METER (BEAKER) 96 mg/dL 70-[address] [facility] [address] [facility] (test smfo=4356) [facility] [address] CREATININE, RANDOM [id number] 08:00:00 Test Item Value Reference Range Comments CREATININE URINE (BEAKER) (test kmiw=332) 55.9 mg/dL Reference Range: No NormalsSODIUM, RANDOM [id number] 08:00:00 Test Item Value Reference Range Comments SODIUM URINE (BEAKER) (test liiz=953) 69 meq/L Reference Range: No NormalsUREA NITROGEN, RANDOM [id number] 08:00:00 Test Item Value Reference Range Comments UREA NITROGEN URINE (BEAKER) (test dtnw=629) 207 mg/dL Reference Range: No NormalsBASIC METABOLIC [id number] 07:16:00 Test Item Value Reference Range Comments SODIUM (BEAKER) (test 133 meq/L 136-145 hxag=988) POTASSIUM (BEAKER) (test 4.3 meq/L 3.5-5.1 zcqc=894) CHLORIDE (BEAKER) (test 95 meq/L 98-107 wwuq=984) CO2 (BEAKER) (test 15 meq/L 22-29 rihl=935) BLOOD UREA NITROGEN 114 mg/dL 7-21 (BEAKER) (test xbpu=271) CREATININE (BEAKER) (test 14.93 mg/dL 0.57-1.25 woio=818) GLUCOSE RANDOM (BEAKER) 77 mg/dL 70-105 (test yxud=782) CALCIUM (BEAKER) (test 8.2 mg/dL 8.4-10.2 vjxn=573) EGFR (BEAKER) (test 2 mL/min/1.73 sq m ESTIMATED GFR IS NOT qnuo=6423) ACCURATE CREATININE CLEARANCE IN PREDICTING GLOMERULAR FILTRATION RATE. ESTIMATED GFR IS NOT APPLICABLE FOR DIALYSIS PATIENTS. HEPATITIS PANEL, [id number] 07:11:00 Test Item Value Reference Range Comments HEPATITIS A IGM ANTIBODY (BEAKER) (test Nonreactive Nonreactive rman=286) HEPATITIS B CORE IGM ANTIBODY (BEAKER) (test Nonreactive Nonreactive hukc=451) HEPATITIS C ANTIBODY (BEAKER) (test hagt=004) Nonreactive Nonreactive HEPATITIS B SURFACE ANTIGEN (2) (BEAKER) (test Nonreactive Nonreactive gvlo=1645) [id number] 07:09:00 Test Item Value Reference Range Comments MAGNESIUM (BEAKER) (test okbg=824) 2.6 mg/dL 1.6-2.6 TROPONIN [id number] 07:02:00 Test Item Value Reference Range Comments TROPONIN I (BEAKER) (test okte=846) 0.09 ng/mL 0.00-0.03 Troponin I (TnI) levels must be interpreted in the context of the presenting symptoms and the clinical findings. Elevated TnI levels indicate myocardial damage, but are not specific for ischemic heart disease. Elevated TnI levels are seen in patients with other cardiac conditions (including myocarditis and congestive heart failure), and slight TnI elevations occur in patients with other conditions, including sepsis, renal failure, acidosis, acute neurological disease, and persistent tachyarrhythmia.URINALYSIS W/ [id number] 06: 20:00 Test Item Value Reference Range Comments COLOR (BEAKER) (test tose=266) Light Yellow CLARITY (BEAKER) (test woat=208) Hazy SPECIFIC GRAVITY UA (BEAKER) (test imif=123) 1.008 1.001-1.035 PH UA (BEAKER) (test enrz=372) 5.5 5.0-8.0 PROTEIN UA (BEAKER) (test cmcz=897) 200 mg/dL Negative GLUCOSE UA (BEAKER) (test wwwp=855) Negative Negative KETONES UA (BEAKER) (test pulz=229) Negative Negative BILIRUBIN UA (BEAKER) (test tkwh=103) Negative Negative BLOOD UA (BEAKER) (test wuzf=293) Moderate Negative NITRITE UA (BEAKER) (test bjpr=999) Negative Negative LEUKOCYTE ESTERASE UA (BEAKER) (test ooxg=818) Large Negative UROBILINOGEN UA (BEAKER) (test mluw=476) 0.2 mg/dL 0.2-1.0 RBC UA (BEAKER) (test wpge=418) 35 /HPF WBC UA (BEAKER) (test cdrk=593) 189 /HPF BACTERIA (BEAKER) (test iebq=486) Rare SQUAMOUS EPITHELIAL (BEAKER) (test mewo=206) 5 /HPF AMORPHOUS CRYSTALS (BEAKER) (test orjp=4067) Rare SOURCE(BEAKER) (test kijt=1238) BLOOD GAS, [id number] 06:08:00 Test Item Value Reference Range Comments PH VENOUS (BEAKER) (test hkpr=808) 7.27 7.32-7.42 PCO2 VENOUS (BEAKER) (test idzl=606) 38 mmHg 41-51 PO2 VENOUS (BEAKER) (test eulf=640) 48 mmHg 25-40 O2 SATURATION VENOUS (BEAKER) (test bszi=937) 78.4 % 40.0-70.0 HCO3 VENOUS (BEAKER) (test ubsw=064) 17 mmol/L 21-29 BASE EXCESS VENOUS (BEAKER) (test mxyf=427) -9.2 mmol/L -2.0-3.0 PATIENT TEMPERATURE (BEAKER) (test djbn=4707) 37.0 C FIO2 (BEAKER) (test flnw=9380) 21.0 % POCT-GLUCOSE [id number] 05:57:00 Test Item Value Reference Range Comments POC-GLUCOSE METER (BEAKER) 84 mg/dL 70-110 TESTED AT [address] (test qfmo=9724) [facility] [address] [id number] 04:20:00 Test Item Value Reference Range Comments FERRITIN (BEAKER) (test mind=383) 241 ng/mL 5-275 HIV-1 ANTIGEN WITH HIV-1/2 [id number] 04:15:00 Test Item Value Reference Range Comments HIV-1 ANTIGEN WITH HIV 1\T\2 ANTIBODY (2) Nonreactive Nonreactive (BEAKER) (test eavn=3019) RAD, CHEST, 1 VIEW, NON [id number] 04:02:00Reason for exam:->DIALYSIS CATHTER PLACEMENTShould this be performed at the bedside?->YesFINAL REPORT RAD, CHEST, 1 VIEW, NON DEPT INDICATION: DIALYSIS CATHTER PLACEMENT COMPARISON: Prior day's exam FINDINGS: Portable frontal view of the chest. IMPRESSION: Support Lines: Interval placement of a right IJ central venous catheter with tip overlying the cavoatrial junction. Lungs and pleura: Unchanged airspace and pleural opacities. No pneumothorax.Heart and mediastinum: Stable contours. Stable surgical changes.Additional findings: None. Signed: Karla Nieves MDReport Verified Date/Time: 11/26/2018 04: 02:49 04: 02 AMPTH, [id number] 04:00:00 Test Item Value Reference Range Comments PARATHYROID HORMONE INTACT (BEAKER) (test 375.7 pg/mL 8.5-72.5 qqtk=200) IRON, TIBC, % SAT. (WITHOUT FERRITIN)2018-11-26 03:54:00 Test Item Value Reference Range Comments IRON (BEAKER) (test vlfp=902) 47.0 ug/dL 40.0-160.0 TOTAL IRON BINDING CAPACITY (BEAKER) (test 309 ug/dL 250-450 arzw=684) IRON % SATURATION (2) (BEAKER) (test ovsn=6384) 15 % 20-55 BLOOD GAS, [id number] 03:31:00 Test Item Value Reference Range Comments PH VENOUS (BEAKER) (test gggc=969) 7.21 7.32-7.42 PCO2 VENOUS (BEAKER) (test qrvy=861) 36 mmHg 41-51 PO2 VENOUS (BEAKER) (test pmgh=889) 49 mmHg 25-40 O2 SATURATION VENOUS (BEAKER) (test lyxn=191) 76.7 % 40.0-70.0 HCO3 VENOUS (BEAKER) (test scmt=822) 14 mmol/L 21-29 BASE EXCESS VENOUS (BEAKER) (test wmsi=823) -13.1 mmol/L -2.0-3.0 PATIENT TEMPERATURE (BEAKER) (test vgdc=7260) 37.0 C FIO2 (BEAKER) (test sutz=9743) 21.0 % T4, [id number] 02:37:00 Test Item Value Reference Range Comments FREE T4 (BEAKER) (test trco=576) 0.49 ng/dL 0.70-1.48 TSH/FREE T4 IF [id number] 01:57:00 Test Item Value Reference Range Comments THYROID STIMULATING HORMONE (BEAKER) (test 14.30 uIU/mL 0.35-4.94 emjr=609) TROPONIN [id number] 01:39:00 Test Item Value Reference Range Comments TROPONIN I (BEAKER) (test djiu=901) 0.09 ng/mL 0.00-0.03 Troponin I (TnI) levels must be interpreted in the context of the presenting symptoms and the clinical findings. Elevated TnI levels indicate myocardial damage, but are not specific for ischemic heart disease. Elevated TnI levels are seen in patients with other cardiac conditions (including myocarditis and congestive heart failure), and slight TnI elevations occur in patients with other conditions, including sepsis, renal failure, acidosis, acute neurological disease, and persistent tachyarrhythmia.B-TYPE NATRIURETIC FACTOR (BNP) 01:38:00 Test Item Value Reference Range Comments B-TYPE NATRIURETIC PEPTIDE (BEAKER) (test 1604 pg/mL 0-100 uqmm=333) [id number] 01:35:00 Test Item Value Reference Range Comments PHOSPHORUS (BEAKER) (test jlqr=163) 12.3 mg/dL 2.3-4.7 COMPREHENSIVE METABOLIC [id number] 01:34:00 Test Item Value Reference Range Comments TOTAL PROTEIN (BEAKER) 7.0 gm/dL 6.0-8.3 (test fnvl=813) ALBUMIN (BEAKER) (test 4.0 g/dL 3.5-5.0 sefu=8982) ALKALINE PHOSPHATASE 87 U/L 40-150 (BEAKER) (test wfkk=212) BILIRUBIN TOTAL (BEAKER) 0.6 mg/dL 0.2-1.2 (test mqun=322) SODIUM (BEAKER) (test 131 meq/L 136-145 mfox=514) POTASSIUM (BEAKER) (test 4.3 meq/L 3.5-5.1 xjfr=142) CHLORIDE (BEAKER) (test 95 meq/L 98-107 zjyn=222) CO2 (BEAKER) (test 12 meq/L 22-29 tcbf=117) BLOOD UREA NITROGEN 113 mg/dL 7-21 (BEAKER) (test ogro=343) CREATININE (BEAKER) (test 15.02 mg/dL 0.57-1.25 rpdg=257) GLUCOSE RANDOM (BEAKER) 99 mg/dL 70-105 (test aufn=219) CALCIUM (BEAKER) (test 8.6 mg/dL 8.4-10.2 hqmz=664) AST (SGOT) (BEAKER) (test 27 U/L 5-34 kqbb=940) ALT (SGPT) (BEAKER) (test 27 U/L 6-55 sgus=946) EGFR (BEAKER) (test 2 mL/min/1.73 sq m ESTIMATED GFR IS NOT rpza=2407) ACCURATE CREATININE CLEARANCE IN PREDICTING GLOMERULAR FILTRATION RATE. ESTIMATED GFR IS NOT APPLICABLE FOR DIALYSIS PATIENTS. LIPID [id number] 01:33:00 Test Item Value Reference Range Comments TRIGLYCERIDES (BEAKER) (test tudl=437) 201 mg/dL CHOLESTEROL (BEAKER) (test ysuj=651) 112 mg/dL HDL CHOLESTEROL (BEAKER) (test mxxh=805) 25 mg/dL LDL CHOLESTEROL CALCULATED (BEAKER) (test 47 mg/dL pzbw=367) Triglyceride Reference Range: Low Risk <150 Borderline 150- 199 High Risk 200-499 Very High Risk >=500Cholesterol Reference Range: Low Risk <200 Borderline 200-239 High Risk > 240HDL Cholesterol Reference Range: Low Risk >=60 High Risk <40LDL Cholesterol Reference Range: Optimal <100 Near Optimal 100-129 Borderline 130-159 High 160-189 Very High >=190CREATINE KINASE (CK)2018-11-26 01:33:00 Test Item Value Reference Range Comments CREATINE KINASE TOTAL (BEAKER) (test srji=368) 668 U/L 29-200 [id number] 01:31:00 Test Item Value Reference Range Comments MAGNESIUM (BEAKER) (test pwia=344) 2.6 mg/dL 1.6-2.6 [id number] 01:29:00 Test Item Value Reference Range Comments PROTIME (BEAKER) (test grhs=937) 16.7 seconds 11.9-14.2 INR (BEAKER) (test wxop=808) 1.4 <=5.9 PARTIAL THROMBOPLASTIN TIME (BEAKER) (test 35.6 seconds 22.5-36.0 rhnb=218) Effective 10/02/2018: PT Reference Range ChangeNew: 11.9-14.2 Previous: 11.7- 14.7RECOMMENDED COUMADIN/WARFARIN INR THERAPY RANGESSTANDARD DOSE: 2.0-3.0 Includes: PROPHYLAXIS for venous thrombosis, systemic embolization; TREATMENT for venous thrombosis and/or pulmonary embolus.HIGH RISK: Target INR is2.5-3.5 for patients wiht mechanical heart valves.PROTHROMBIN TIME/[id number] 01:28: 00 Test Item Value Reference Range Comments PROTIME (BEAKER) (test vubr=329) 16.7 seconds 11.9-14.2 INR (BEAKER) (test hqxa=874) 1.4 <=5.9 Effective 10/02/2018: PT Reference Range ChangeNew: 11.9-14.2 Previous: 11.7- 14.7RECOMMENDED COUMADIN/WARFARIN INR THERAPY RANGESSTANDARD DOSE: 2.0-3.0 Includes: PROPHYLAXIS for venous thrombosis, systemic embolization; TREATMENT for venous thrombosis and/or pulmonary embolus.HIGH RISK: Target INR is2.5-3.5 for patients wiht mechanical heart valves.LACTIC ACID, [id number] 01:24:00 Test Item Value Reference Range Comments LACTATE BLOOD VENOUS (2) 1.7 mmol/L 0.5-2.2 Specimen slightly hemolyzed (BEAKER) (test yxxu=7304) RAD, CHEST, 1 VIEW, NON [id number] 01:15:00Reason for exam:->Elevated BNPShould this be performed at the bedside?->YesFINAL REPORT Chest, 1 view. History: Elevated BNP. Comparison: None available. IMPRESSION: Cardiac mediastinal silhouette within normal limits. Postsurgical changes of a median sternotomy with fractured second most superior sternotomy wire. Pulmonary vasculature is exaggerated by technique. No lobar consolidation or pleural effusion. No pneumothorax. Osseous structures are grossly unremarkable. Signed: Karla Nieveskei Verified Date/Time: 2018 01:15:17 Electronically signed by: KARLA NIEVES MD on 2018 01:15 AMCBC W/PLT COUNT & AUTO [id number] 01:14:00 Test Item Value Reference Range Comments WHITE BLOOD CELL COUNT (BEAKER) (test wfyp=709) 8.3 K/ L 3.5-10.5 RED BLOOD CELL COUNT (BEAKER) (test mdfg=101) 3.24 M/ L 3.93-5.22 HEMOGLOBIN (BEAKER) (test hrmk=111) 9.8 GM/DL 11.2-15.7 HEMATOCRIT (BEAKER) (test amcn=155) 29.9 % 34.1-44.9 MEAN CORPUSCULAR VOLUME (BEAKER) (test vwox=628) 92.3 fL 79.4-94.8 MEAN CORPUSCULAR HEMOGLOBIN (BEAKER) (test 30.2 pg 25.6-32.2 xweh=546) MEAN CORPUSCULAR HEMOGLOBIN CONC (BEAKER) (test 32.8 GM/DL 32.2-35.5 imbz=978) RED CELL DISTRIBUTION WIDTH (BEAKER) (test 14.4 % 11.7-14.4 obfp=408) PLATELET COUNT (BEAKER) (test srbu=778) 225 K/CU MM 150-450 MEAN PLATELET VOLUME (BEAKER) (test auwm=800) 9.5 fL 9.4-12.3 NUCLEATED RED BLOOD CELLS (BEAKER) (test 0 /100 WBC 0-0 npwz=268) NEUTROPHILS RELATIVE PERCENT (BEAKER) (test 76 % kghy=199) LYMPHOCYTES RELATIVE PERCENT (BEAKER) (test 15 % akec=620) MONOCYTES RELATIVE PERCENT (BEAKER) (test 6 % aoww=750) EOSINOPHILS RELATIVE PERCENT (BEAKER) (test 0 % gnzn=971) BASOPHILS RELATIVE PERCENT (BEAKER) (test 1 % baas=297) NEUTROPHILS ABSOLUTE COUNT (BEAKER) (test 6.32 K/ L 1.56-6.13 coym=925) LYMPHOCYTES ABSOLUTE COUNT (BEAKER) (test 1.28 K/ L 1.18-3.74 hngn=221) MONOCYTES ABSOLUTE COUNT (BEAKER) (test 0.53 K/ L 0.24-0.36 itra=755) EOSINOPHILS ABSOLUTE COUNT (BEAKER) (test 0.02 K/ L 0.04-0.36 lwdi=658) BASOPHILS ABSOLUTE COUNT (BEAKER) (test 0.07 K/ L 0.01-0.08 uatb=450) IMMATURE GRANULOCYTES-RELATIVE PERCENT (BEAKER) 1 % 0-1 (test lzwp=5731)
--- OUTSIDE RECORDS SUMMARY | 2019-01-13 11:33 | XMS REPORT | Summary of Care ---
:1950 Author Organization [facility] Address [address] [place] [address] Care Team Providers Name Role Phone Pcp, Patient Does Not Have A Primary Care Provider Reason for Visit Reason Comments New Patient Encounter Details Date Type Department Care Team Description 12/24/2018 Office Visit [facility] Arthur Killian Uncontrolled type 2 diabetes mellitus with hyperglycemia (Primary Dx); Neurology-Suzan White MD Spinal stenosis of lumbar region with neurogenic claudication; [address] [place] [address], [address] [facility] [place] [phone] Allergies No Known Allergiesdocumented as of this encounter (statuses as of 12/25/2018) Medications Medication Sig Dispensed Refills Start Date End Date Status clopidogrel (PLAVIX) Take 75 mg by 0 Active 75 mg tablet mouth daily. CARVEDILOL (COREG Take by mouth. 0 Active ORAL)Indications: Indications: Patient is unsure of Patient is dosage unsure of dosage ROSUVASTATIN CALCIUM Take by mouth. 0 Active (CRESTOR Indications: ORAL)Indications: Patrient is Patrient is unsure of unsure of dosage dosage aspirin 325 mg tablet Take 325 mg by 0 Active mouth daily. candesartan-hydrochlor Take 1 tablet by 0 Active othiazide (ATACAND mouth daily. HCT) 16-12.5 mg per tablet zolpidem (AMBIEN) 5 mg Take 5 mg by 0 Active tablet mouth at bedtime as needed for Insomnia. BD ULTRAFINE III MINI USE DAILY WITH 100 Each 2 07/25/2017 Active PEN 31 gauge x 07/20" BALA NdleIndications: Type 2 diabetes mellitus without complication, without long-term current use of insulin Insulin Lisp & Lisp inject 28 Units 16.8 mL 3 04/12/2018 Active Prot, Hum, (HUMALOG under the skin 2 MIX 75-25 KWIKPEN) 100 (two) times unit/mL (75-25) daily with injectionIndications: meals. Uncontrolled type 2 diabetes mellitus with hyperglycemia METFORMIN 1,000 mg TAKE ONE TABLET 60 tablet 0 09/06/2018 Active tabletIndications: BY MOUTH TWICE A Type 2 diabetes DAY WITH FOOD mellitus without complication, without long-term current use of insulin amLODIPine 10 mg Take 10 mg by 0 12/06/2018 12/06/2019 Active tablet mouth. apixaban 5 mg tablet Take 5 mg by 0 12/05/2018 Active mouth. NEURONTIN 100 mg 0 12/16/2018 Active capsule famotidine 20 mg Take 20 mg by 0 12/05/2018 Active tablet mouth. levothyroxine 25 mcg Take 25 mcg by 0 12/06/2018 12/06/2019 Active tablet mouth. Melatonin 5 mg tablet Take 5 mg by 0 12/05/2018 Active mouth. BYSTOLIC 10 mg tablet 0 12/03/2018 Active rosuvastatin 20 mg Take 20 mg by 0 Active tablet mouth. documented as of this encounter (statuses as of 12/25/2018) Active Problems Problem Noted Date Dyslipidemia 08/28/2016 Essential hypertension 08/28/2016 Type 2 diabetes mellitus without complication, with long-term current use 06/2016 of insulin documented as of this encounter (statuses as of 12/25/2018) Resolved Problems Problem Noted Date Resolved Date Type 2 diabetes mellitus without complication, without 04/05/2016 08/28/2016 long-term current use of insulin documented as of this encounter (statuses as of 12/25/2018) Social History Tobacco Use Types Packs/Day Years Used Date Former Smoker 51 Quit: 11/2018 Alcohol Use Drinks/Week oz/Week Comments Not Currently 0 Standard drinks or equivalent 0.0 Sex Assigned at Date Recorded Not on file Job Start Date Occupation Industry Not on file Not on file Not on file Travel History Travel Start Travel End No recent travel history available. documented as of this encounter Last Filed Vital Signs Vital Sign Reading Time Taken Comments Blood Pressure 145/58 12/24/2018 2:12 PM CDT Pulse 68 12/24/2018 2:10 PM CDT Temperature 37.1 C (98.8 F) 12/24/2018 2:10 PM CDT Respiratory Rate 18 12/24/2018 2:10 PM CDT Oxygen Saturation - - Inhaled Oxygen Concentration - - Weight - - Height - - Body Mass Index - - documented in this encounter Progress Notes Arthur Killian MD - 12/24/2018 1:00 PM CDT Neurology Clinic Note I have verified the medical student documentation and/or findings, including the history, physical exam, and medical decision making. Additionally, I have personally performed or re-performed the physical exam and medical decision making activities of this patient's evaluation and management service. Arthur Killian MD Line O Scribe Operator Neurology HISTORY OF PRESENT ILLNESS: Renetta Dey is a 68 year old female with PMH of HTN, DM2, CAD, CABG, fem-pop bypass, presenting to the clinic today with CC of neuropathy of the b/l lower extremities. She states that the weekend of November 07 she had a fall while trying to sit down and hit her lower back on the ground, she denies any head trauma. She began having lower back pain and numbness and tingling in her lower legs so she went to her PCP where a lumbar Xray was performed and found no fractures. During the next 2 weeksshhoward was able to ambulate with some assistance from her daughter but 2 days before she was scheduled for an MRI of the lumbar spine she was admitted to the hospital for ANSON requiring hemodialysis. The patient has uncontrolled DM, which may have been a contributing factor to kindney issues. After her hospital course improved her kidney function she was discharged to PT but electively withdrew after 1-2 days due to her desire to be at home. Since the hospital visit she states that she has been unable to walk due to a lack of coordination and muscle strength. She complains of constant "pins and needles" feeling from the knees downward bilaterally and states that she cannot tell where her feet are without looking at them. Straightening the leg on both sides elicits a lancinating pain originating in the popliteal area and radiating downward. She is unable to move her lower extremities against light pressure and reports diminished sensation beginning from the knee and moving distally. She denies any upper extremity symptoms. Her daughter describes AMS and slurred speech during the previous hospital stay with residual memory problems. Prior to the inciting fall the patient's daughter states that thepatient was fully functional and living independently. The patient corroborated this description andwants to be able to return to living without assistance as she was before. ROS questions to the patient. Cardiac: chest pain, shortness of breath, easy fatigue, arrhythmia, swelling of legs. Respiratory: cough, with sputum production, wheezing, insomnia. G.I.: nausea, vomiting, diarrhea, poor appetite, blood in stool, difficult swallow. Urinary: pain with urination, blood with urination, incontinence, difficulty urinating. Skin: discoloration, itching, change in hair or nails, skin breakdown. Hematology/immunology: easy bruising, malignancy. Head, nose, throat: ringing of ears, loss of hearing, nosebleeds, sores in mouth, hoarseness, facial pain. Neurology: dizziness, tremor, change in speech, seizures, fainting spells, loss of memory, weakness arm or leg, numbness arm or leg, word finding defect. Endocrine: hot cold intolerance, excessive urination, increased thirst, increased sweating. Psychiatric: disorientation, depression, anxiety, mood disorder, loss of contact with reality, anger. Eyes: change in vision, eye pain, double vision, blurred vision, eyelid droop. Skeletal: pain in joints, muscle pain, back pain, neck pain, swelling of joints , swelling of the hands. Pertinent patient responses: Increaseing leg weakness, sensory changes noted above had worsened overlast 6 weeks. No loss B/B incontinence. No history reported for diabetic retinopathy. PMH: has a past medical history of CAD (coronary artery disease) of artery bypass graft (2002), Carotid stenosis, left, DM2 (diabetes mellitus, type 2), and PVD ( peripheral vascular disease). HTN Current Outpatient Medications: amLODIPine 10 mg tablet, Take 10 mg by mouth., Disp: , Rfl: apixaban 5 mg tablet, Take 5 mg by mouth., Disp: , Rfl: BYSTOLIC 10 mg tablet, , Disp: , Rfl: famotidine 20 mg tablet, Take 20 mg by mouth., Disp: , Rfl: levothyroxine 25 mcg tablet, Take 25 mcg by mouth., Disp: , Rfl: Melatonin 5 mg tablet, Take 5 mg by mouth., Disp: , Rfl: NEURONTIN 100 mg capsule, , Disp: , Rfl: rosuvastatin 20 mg tablet, Take 20 mg by mouth., Disp: , Rfl: Insulin Lisp & Lisp Prot, Hum, (HUMALOG MIX 75-25 KWIKPEN) 100 unit/mL (75-25) injection, inject 28 Units under the skin 2 (two) times daily with meals., Disp: 16.8 mL, Rfl: 3 BD ULTRAFINE III MINI PEN 31 gauge x 3/16" Ndle, USE DAILY WITH TOUGoodDataO, Disp: 100 Each, Rfl: 2 aspirin 325 mg tablet, Take 325 mg by mouth daily., Disp: , Rfl: clopidogrel (PLAVIX) 75 mg tablet, Take 75 mg by mouth daily., Disp: , Rfl: METFORMIN 1,000 mg tablet, TAKE ONE TABLET BY MOUTH TWICE A DAY WITH FOOD, Disp: 60 tablet, Rfl: 0 candesartan-hydrochlorothiazide (ATACAND HCT) 16-12.5 mg per tablet, Take 1 tablet by mouth daily., Disp: , Rfl: CARVEDILOL (COREG ORAL), Take by mouth. Indications: Patient is unsure of dosage, Disp: , Rfl: ROSUVASTATIN CALCIUM (CRESTOR ORAL), Take by mouth. Indications: Patrient is unsure of dosage,Disp: , Rfl: zolpidem (AMBIEN) 5 mg tablet, Take 5 mg by mouth at bedtime as needed for Insomnia., Disp: , Rfl: Family History Problem Relation Age of Onset Diabetes Mother Diabetes Father Past Surgical History: Procedure Laterality Date CABG, ARTERIAL, FOUR+ Social History Socioeconomic History Marital status: Spouse name: Not on file Number of children: Not on file Years of education: Not on file Highest education level: Not on file Occupational History Not on file Social Needs Financial resource strain: Not on file Food insecurity: Worry: Not on file Inability: Not on file Transportation needs: Medical: Not on file Non-medical: Not on file Tobacco Use Smoking status: Former Smoker Years: 50.00 Last attempt to quit: 11/2018 Years since quittin.1 Substance and Sexual Activity Alcohol use: Not Currently Alcohol/week: 0.0 oz Drug use: Not on file Sexual activity: Never Lifestyle Physical activity: Days per week: Not on file Minutes per session: Not on file Stress: Not on file Relationships Social connections: Talks on phone: Not on file Gets together: Not on file Attends jain service: Not on file Active member of club or organization: Not on file Attends meetings of clubs or organizations: Not on file Relationship status: Not on file Intimate partner violence: Fear of current or ex partner: Not on file Emotionally abused: Not on file Physically abused: Not on file Forced sexual activity: Not on file Other Topics Concern Not on file Social History Narrative Not on file Examination: NL ABN Comments Mental Status: well-kept and appears stated age, alert and oriented times three , cooperative during the exam, attention and concentration normal, medical reception and expression intact, fund of information normal, recent and remote memory intact, affect/mood normal and relaxed. X Cranial nerves (vision, eye movement): EOM intact, equal reactive pupils, accommodation reflex present, full visual rowe. X Cranial nerves (face): normal mastication, facial sensation normal, facial motor normal, corneal reflex not done. X Cranial nerves (taste, smell): taste intact by history, smell intact by history. X Cranial nerve (hearing): normal conversational hearing, finger rub WNL. X Cranial nerve (accessory): normal r/l sternomastoid bulk/tone/power . X Cranial nerve (tongue): tongue bulk normal, tongue midline, palate centered. X Peripheral motor: peripheral motor strength normal, peripheral motor bulk normal , peripheral motor tone normal. X Reflexes: LE bilateral Absent X As written Reflexes: UE bilateral 1+ X As written Peripheral sensation: light touch intact, primary sharp touch normal, vibration symmetrical, proprioception normal. X Diminished sensation to light touch and sharp touch distal to bilateral knee , proprioception notintact Coordination: Nndfhz-og-cwmf normal, heel to wade intact, finger tapping normal , RAH motion symmetrical. X Unable to perform heel to wade secondary to weakness Gait: gait normal, arm swing intact, romberg negative. X Unable to walk, patient in wheelchair HEENT: HEENT A/N, no oropharyngeal lesion present, JVD absent, thyromegaly absent, no lymphadenopathy present. X Lungs: lungs clear, no wheezing, no rhonchi. X Heart: CV RRR, no murmurs, carotid bruits absent. X Scar noted left side of neck related to prior CEA, and also Midline surgical scar related to her prior cardiac surgery. Vital signs: BP (!) 145/58 | Pulse 68 | Temp 37.1 C (98.8 F) (Oral) | Resp 18 No diagnosis found. ASSESSMENT AND RECOMMENDATIONS: Mrs. Dey is a 68 year old female with 6 weeks of progressive weakness of the bilateral lower extremities and sensory changes more distally. She has a recent history of a fall, acute onset and resolution of slurred speech and uncontrolled diabetes. Potential etiologies of her neurologic symptoms include trauma causing spinal stenosis/claudication, diabetic peripheral neuropathy, stroke, or Inflammatory demyelinating neuropathy. She likely needs an MRI of the lumbar spine and depending on the results could need subsequent LP and neurophysiologic studies to determine the source of her symptoms. Her daughter will be taking her to [facility] tomorrow for admission to the neurology in order toundergo further diagnostic testing. Creation of the note was aided by utilizing a cut/paste operation of text from a Microsoft Word template created with [employer]. The text was dictated into the template via [employer]. documented in this encounter Plan of Treatment Health [...] HgA1C 10/11/2018 04/12/2018, 08/28/2016, 04/05/2016 INFLUENZA VACCINE (#1) 2019 FOOT EXAM 04/12/2019 04/12/2018, 04/12/2018 documented as of this encounter Results Not on filedocumented in this encounter Visit Diagnoses Diagnosis Uncontrolled type 2 diabetes mellitus with hyperglycemia - Primary Spinal stenosis of lumbar region with neurogenic claudication Spinal stenosis, lumbar region, with neurogenic claudication Diabetic peripheral neuropathy Type II or unspecified type diabetes mellitus with neurological manifestations , not stated as uncontrolled documented in this encounter documented as of this encounter
--- OUTSIDE RECORDS SUMMARY | 2019-01-13 11:33 | XMS REPORT | Summary of Care ---
:1950 Author Organization [facility] Address [address] [place] [address] Care Team Providers Name Role Phone Pcp, Patient Does Not Have A Primary Care Provider Reason for Visit Reason Comments Admission still waiting for a call Encounter Details Date Type Department Care Team Description 12/25/2018 Telephone [facility] Arthur Killian, Admission (still Neurology-Suzan KELLY waiting for a call) [address] [place] [address]. [address], [address] [place] [phone] Allergies No Known Allergiesdocumented as of this [...] Subscriber ID Effective Dates Phone Address Type [employer]IGNA CIGROMINA III [id number] 2015-Present HMO/PPO/POS documented as of this encounter
--- OUTSIDE RECORDS SUMMARY | 2019-01-13 11:33 | XMS REPORT | Summary of Care ---
:1950 Author Organization [facility] Address [address] [place] [address] Care Team Providers Name Role Phone Pcp, Patient Does Not Have A Primary Care Provider Reason for Visit Reason Comments New Patient Encounter Details Date Type Department Care Team Description 12/24/2018 Office Visit [facility] Arthur Killian Uncontrolled type 2 diabetes mellitus with hyperglycemia (Primary Dx); Neurology-Suzan White MD Spinal stenosis of lumbar region with neurogenic claudication; [address] [place] [address], [address] [place] [phone] Allergies No Known Allergiesdocumented as of this [...] evaluation and management service. Arthur Killian MD Refinery Operator Assistant Neurology HISTORY OF PRESENT ILLNESS: Renetta Dey [...] gauge x 3/16" Ndle, USE DAILY WITH TOUfarmbuyO, Disp: 100 Each, Rfl: 2 aspirin 325 [...] file Gets together: Not on file Attends mandaen service: Not on file Active member of [...] during the exam, attention and concentration normal, switchboard operator receptionist and expression intact, fund of information normal, [...] to bilateral knee , proprioception notintact Coordination: Avotiq-dl-wtme normal, heel to wade intact, finger tapping [...] Her daughter will be taking her to [facility] tomorrow for admission to the neurology in order toundergo further diagnostic testing. Creation of the note was aided by utilizing a cut/paste operation of text from a Microsoft Word template created with [employer]. The text was dictated into the template via [employer]. documented in this encounter Plan [...]
--- OUTSIDE RECORDS SUMMARY | 2019-01-13 11:33 | XMS REPORT | Summary of Care ---
:1950 Author Organization [facility] - Health Address [address] [place] [address] Care Team Providers Name Role Phone Pcp, Patient Does Not Have A Primary Care Provider Encounter Details Date Type Department Care Team Description 12/24/2018 Orders Only [facility] Doctor Unassigned, [address] [facility] Name [place] [phone] Allergies No Known Allergiesdocumented as of this encounter (statuses as of 12/24/2018) Medications Medication Sig Dispensed Refills Start Date [...] 2 07/25/2017 Active PEN 31 gauge x 16" BALA NdleIndications: Type 2 diabetes mellitus without [...] as of this encounter (statuses as of 12/24/2018) Active Problems Problem Noted Date Dyslipidemia 08/28/2016 Essential hypertension 08/28/2016 Type 2 diabetes mellitus without complication, with long-term current use 06/2016 of insulin documented as of this encounter (statuses as of 12/24/2018) Resolved Problems Problem Noted Date Resolved Date Type 2 diabetes mellitus without complication, without 04/05/2016 08/28/2016 long-term current use of insulin documented as of this encounter (statuses as of 12/24/2018) Social History Tobacco Use Types Packs/Day Years [...] 04/12/2018, 04/12/2018 documented as of this encounter Procedures Procedure Name Priority Date/Time Associated Diagnosis Comments NO SHOW OR MISSED Routine 12/24/2018 1:15 PM APPOINTMENT POLICY CDT ACKNOWLEDGEMENT documented in this encounter Results Not on filedocumented in this encounter Insurance Payer Benefit Plan / Group Subscriber ID Effective Dates Phone Address Type DOUGLAS COLE III [id number] 2015-Present HMO/PPO/POS documented as of this encounter
--- OUTSIDE RECORDS SUMMARY | 2019-01-13 11:34 | XMS REPORT | Summary of Care ---
:1950 Author Organization [facility] - Health Address [address] [place] [address] Care Team Providers Name Role Phone Pcp, Patient Does Not Have A Primary Care Provider Reason for Visit Reason Comments Transition Of Care Encounter Details Date Type Department Care Team Description 12/30/2018 Transition of Care [facility] Izabella Sanchez, Transition Of Care [facility]- RN [address] [address] Allergies No Known Allergiesdocumented as of this encounter (statuses as of 12/30/2018) Medications Medication Sig Dispensed Refills Start Date [...] 07/25/2017 Active PEN 31 gauge x 3/16" TOUNOEMÍO NdleIndications: Type 2 diabetes mellitus without complication, [...] as of this encounter (statuses as of 12/30/2018) Active Problems Problem Noted Date E44.0 Moderate protein calorie malnutrition 12/26/2018 Lower extremity weakness 12/25/2018 Dyslipidemia 08/28/2016 Essential hypertension 08/28/2016 Type 2 diabetes mellitus without complication, with long-term current use 06/2016 of insulin documented as of this encounter (statuses as of 12/30/2018) Resolved Problems Problem Noted Date Resolved Date Type 2 diabetes mellitus without complication, without 04/05/2016 08/28/2016 long-term current use of insulin documented as of this encounter (statuses as of 12/30/2018) Social History Tobacco Use Types Packs/Day Years Used Date Former Smoker 51 Quit: 11/2018 Smokeless Tobacco: Never Used Comments: quit november 2018 Alcohol Use Drinks/Week oz/Week Comments Not Currently [...] Done Comments HEPATITIS C (HCV) SCREEN 1950 EYE EXAM 1960 URINE MICROALBUMIN 1961 DTaP,Tdap,and Td Vaccines (1 - 1970 Tdap) MAMMOGRAM 1991 COLONOSCOPY 2001 Zoster Recombinant Vaccine 2001 (SHINGRIX) (1 of 2) LUNG CANCER SCREEN: Recommended 2006 for age 55-80 with 30 + pack year history Medicare Wellness Visit 2016 Osteoporosis Screening 2016 PNEUMOCOCCAL VACCINES 65+ (1 of 2 2016 - PCV13) INFLUENZA VACCINE (#1) 2019 FOOT EXAM 04/12/2019 04/12/2018, 04/12/2018 HgA1C 06/28/2019 12/26/2018, 12/25/2018, 04/12/2018, Additional history exists LDL-C 12/26/2019 12/25/2018 CREATININE (SERUM) 12/27/2019 12/26/2018, 12/26/2018, 12/25/2018 documented as of this encounter Results Not on filedocumented in this encounter Insurance Payer Benefit Plan / Group Subscriber ID Effective Dates Phone Address Type CIGNA CIGROMINA III [id number] 2015-Present HMO/PPO/POS documented as of this encounter
--- OUTSIDE RECORDS SUMMARY | 2019-01-13 11:34 | XMS REPORT | Summary of Care ---
:1950 Author Organization [facility] - Health Address [address] [place] [address] Care Team Providers Name Role Phone Pcp, Patient Does Not Have A Primary Care Provider Encounter Details Date Type Department Care Team Description 12/29/2018 Orders Only [facility] Doctor Unassigned, No 301 [facility] [place] [address] Allergies No Known Allergiesdocumented as of this encounter (statuses as of 12/29/2018) Medications Medication Sig Dispensed Refills Start Date [...] as of this encounter (statuses as of 12/29/2018) Active Problems Problem Noted Date E44.0 Moderate protein calorie malnutrition 12/26/2018 Lower extremity weakness 12/25/2018 Dyslipidemia 08/28/2016 Essential hypertension 08/28/2016 Type 2 diabetes mellitus without complication, with long-term current use 06/2016 of insulin documented as of this encounter (statuses as of 12/29/2018) Resolved Problems Problem Noted Date Resolved Date Type 2 diabetes mellitus without complication, without 04/05/2016 08/28/2016 long-term current use of insulin documented as of this encounter (statuses as of 12/29/2018) Social History Tobacco Use Types Packs/Day Years [...] 12/26/2018, 12/25/2018 documented as of this encounter Procedures Procedure Name Priority Date/Time Associated Diagnosis Comments EXTERNAL PROVIDER Routine 12/29/2018 12:01 AM CDT RECORDS documented in this encounter Results Not on filedocumented in this encounter Insurance Payer Benefit Plan / Group Subscriber ID Effective Dates Phone Address Type DOUGLAS COLE III [id number] 2015-Present HMO/PPO/POS documented as of this encounter
--- OUTSIDE RECORDS SUMMARY | 2019-01-13 11:34 | XMS REPORT | Summary of Care ---
:1950 Author Organization [facility] - Health Address [address] [place] [address] Care Team Providers Name Role Phone Pcp, Patient Does Not Have A Primary Care Provider Encounter Details Date Type Department Care Team Description 12/17/2018 Orders Only [facility] Doctor Unassigned, No 301 [facility] Name [place] [phone] Allergies No Known Allergiesdocumented as of this [...] Date/Time Associated Diagnosis Comments EXTERNAL PROVIDER Routine 12/17/2018 12:01 AM CDT RECORDS documented in this encounter Results Not on filedocumented in this encounter Insurance Payer Benefit Plan / Group Subscriber ID Effective Dates Phone Address Type DOUGLAS COLE III [id number] 2015-Present HMO/PPO/POS documented as of this encounter
--- OUTSIDE RECORDS SUMMARY | 2019-01-13 11:34 | XMS REPORT | Summary of Care ---
:1950 Author Organization [facility] - Health Address [address] [place] [id number] Care Team Providers Name Role Phone Pcp, Patient Does Not Have A Primary Care Provider Encounter Details Date Type Department Care Team Description 12/30/2018 Orders Only [facility] Doctor Unassigned, No [address] [facility] Name [place] [phone] Allergies No Known Allergiesdocumented as of this encounter (statuses as of 01/02/2019) Medications Medication Sig Dispensed Refills Start Date [...] as of this encounter (statuses as of 01/02/2019) Active Problems Problem Noted Date E44.0 Moderate protein calorie malnutrition 12/26/2018 Lower extremity weakness 12/25/2018 Dyslipidemia 08/28/2016 Essential hypertension 08/28/2016 Type 2 diabetes mellitus without complication, with long-term current use 06/2016 of insulin documented as of this encounter (statuses as of 01/02/2019) Resolved Problems Problem Noted Date Resolved Date Type 2 diabetes mellitus without complication, without 04/05/2016 08/28/2016 long-term current use of insulin documented as of this encounter (statuses as of 01/02/2019) Social History Tobacco Use Types Packs/Day Years [...] filedocumented in this encounter Plan of Treatment Date Type Specialty Care Team Description 01/20/2019 Office Visit Neurology Arthur Killian MD [address] [place] [address]. [place] [address] Health Maintenance Due Date Last Done Comments [...] Procedure Name Priority Date/Time Associated Diagnosis Comments AUTHORIZATION FOR RELEASE Routine 12/30/2018 12:01 AM OF PHI CDT documented in this encounter Results Not on filedocumented in this encounter Insurance Payer Benefit Plan / Group Subscriber ID Effective Dates Phone Address Type [employer]IG[employer] CIGNA III [id number] 2015-Present HMO/PPO/POS documented as of this encounter
--- OUTSIDE RECORDS SUMMARY | 2019-01-13 11:34 | XMS REPORT | Summary of Care ---
:1950 Author Organization [facility] - Health Address [address] [place] [id number] Care Team Providers Name Role Phone Pcp, Patient Does Not Have A Primary Care Provider Reason for Visit Reason Comments Transition Of Care Encounter Details Date Type Department Care Team Description 12/30/2018 Transition of Care [facility] Izabella Sanchez, Transition Of Care Health [facility]- RN [address] [id number] Allergies No Known Allergiesdocumented as of this encounter (statuses as of 12/31/2018) Medications Medication Sig Dispensed Refills Start Date [...] as of this encounter (statuses as of 12/31/2018) Active Problems Problem Noted Date E44.0 Moderate protein calorie malnutrition 12/26/2018 Lower extremity weakness 12/25/2018 Dyslipidemia 08/28/2016 Essential hypertension 08/28/2016 Type 2 diabetes mellitus without complication, with long-term current use 06/2016 of insulin documented as of this encounter (statuses as of 12/31/2018) Resolved Problems Problem Noted Date Resolved Date Type 2 diabetes mellitus without complication, without 04/05/2016 08/28/2016 long-term current use of insulin documented as of this encounter (statuses as of 12/31/2018) Social History Tobacco Use Types Packs/Day Years [...] Dates Phone Address Type [employer]IG[employer] CIGROMINA III [id number] 2015-Present HMO/PPO/POS documented as of this encounter
--- OUTSIDE RECORDS SUMMARY | 2019-01-13 11:34 | XMS REPORT | Summary of Care ---
:1950 Author Organization [facility] Address [address] [place], [place] [id number] Care Team Providers Name Role Phone Pcp, Patient Does Not Have A Primary Care Provider Reason for Referral (Routine) Status Reason Specialty Diagnoses / Referred By Referred To Procedures Contact Contact New Request Cardiology Diagnoses Weakness of both lower extremities Jorge Gillis S Procedures ECHO ROUTINE W/DOPPLER COLOR [address] [place] [address] MRI/CAT Scan (Routine) Status Reason Specialty Diagnoses / Referred By Referred To Procedures Contact Contact New Request Diagnostic Diagnoses Weakness of both lower extremities Jroge Gillis S Radiology Procedures CT ANGIOGRAM HEAD [address] [place] [address] MRI/CAT Scan (Routine) Status Reason Specialty Diagnoses / Referred By Referred To Procedures Contact Contact New Request Diagnostic Diagnoses Weakness of both lower extremities Jorge Gillis S Radiology Procedures CT ANGIOGRAM NECK [address] [place] [address] (Routine) Status Reason Specialty Diagnoses / Referred By Referred To Procedures Contact Contact New Request Electroneurodiagnostic Diagnoses Weakness of both lower extremities Jorge Gillis S Emg/Ncv Procedures EMGNCV [address] [facility] Procedures-Jsa [place], [place] [address] S[place]ed [address]Rayray Buckner [place] Phone: [address] [place] [address] [facility] Fax: [place], [place] [phone] MRI/CAT Scan (BRUCE) Status Reason Specialty Diagnoses / Referred By Referred To Procedures Contact Contact New Request Diagnostic Diagnoses Weakness of both lower extremities Jorge Gillis S Radiology Procedures CT HEAD WO CONTRAST [address] [place] [address] MRI/CAT Scan (BRUCE) Status Reason Specialty Diagnoses / Referred By Referred To Procedures Contact Contact New Request Diagnostic Diagnoses Weakness of both lower extremities AnthonyelJorge S Radiology Procedures CT HEAD WO CONTRAST [address] [place] [address] MRI/CAT Scan (Routine) Status Reason Specialty Diagnoses / Referred By Referred To Procedures Contact Contact New Request Diagnostic Diagnoses Weakness of both lower extremities Jorge Gillis S Radiology Procedures MR CERVICAL SPINE W WO CONTRAST [address] [place] [address] MRI/CAT Scan (Routine) Status Reason Specialty Diagnoses / Referred By Referred To Procedures Contact Contact New Request Diagnostic Diagnoses Weakness of both lower extremities AnthonyelJorge S Radiology Procedures MR CERVICAL SPINE W WO CONTRAST [address] [place] [address] MRI/CAT Scan (Routine) Status Reason Specialty Diagnoses / Referred By Referred To Procedures Contact Contact New Request Diagnostic Diagnoses Weakness of both lower extremities Anthonyel, Jorge S Radiology Procedures MR THORACIC SPINE W WO CONTRAST [address] [place] [address] MRI/CAT Scan (Routine) Status Reason Specialty Diagnoses / Referred By Referred To Procedures Contact Contact New Request Diagnostic Diagnoses Weakness of both lower extremities Anthonyel Jorge S Radiology Procedures MR LUMBAR SPINE W WO CONTRAST [address] [place] [address] MRI/CAT Scan (Routine) Status Reason Specialty Diagnoses / Referred By Referred To Procedures Contact Contact New Request Diagnostic Diagnoses Weakness of both lower extremities Anthonyel, Jorge S Radiology Procedures MR THORACIC SPINE W WO CONTRAST [address] [place] [id number] MRI/CAT Scan (Routine) Status Reason Specialty Diagnoses / Referred By Referred To Procedures Contact Contact New Request Diagnostic Diagnoses Weakness of both lower extremities CarlinJorge Radiology Procedures MR LUMBAR SPINE W WO CONTRAST [address] [place] [address] Reason for Visit Auth/Cert Status Reason Specialty Diagnoses / Referred By Referred To Procedures Contact Contact Neurological Surgery Diagnoses subacute bilateral leg paralysis recent uncontrolled diabetes Gisele 11b [address] [place] [address] Encounter Details Date Type Department Care Team Description 12/25/2018 - Hospital Encounter Ortho/ Trauma (Jorge Rayn Lower extremity 12/27/2018 11A) [address] [facility] [facility] weakness [address] [place], [place] [id number] Allergies No Known Allergiesdocumented as of this encounter (statuses as of 12/27/2018) Medications Medication Sig Dispensed Refills Start Date [...] 07/25/2017 Active PEN 31 gauge x 3/16" TOUCHANDLER NdleIndications: Type 2 diabetes mellitus without complication, [...] as of this encounter (statuses as of 12/27/2018) Active Problems Problem Noted Date E44.0 Moderate protein calorie malnutrition 12/26/2018 Lower extremity weakness 12/25/2018 Dyslipidemia 08/28/2016 Essential hypertension 08/28/2016 Type 2 diabetes mellitus without complication, with long-term current use 06/2016 of insulin documented as of this encounter (statuses as of 12/27/2018) Resolved Problems Problem Noted Date Resolved Date Type 2 diabetes mellitus without complication, without 04/05/2016 08/28/2016 long-term current use of insulin documented as of this encounter (statuses as of 12/27/2018) Social History Tobacco Use Types Packs/Day Years Used Date Former Smoker 50 Quit: 11/2018 Smokeless Tobacco: Never Used Tobacco Cessation: Counseling Given: No Comments: quit november 2018 Alcohol Use Drinks/Week [...] Sign Reading Time Taken Comments Blood Pressure 150/51 12/27/2018 12:00 PM CDT Pulse 69 12/27/2018 12:00 PM CDT Temperature 36.7 C (98.1 F) 12/27/2018 12:00 PM CDT Respiratory Rate 20 12/27/2018 12:00 PM CDT Oxygen Saturation 100% 12/27/2018 12:00 PM CDT Inhaled Oxygen Concentration - - Weight 60 kg (132 lb 4.4 oz) 12/25/2018 8:00 PM CDT Height 160 cm (5' 3") 12/25/2018 10:55 PM CDT Body Mass Index 23.43 12/25/2018 8:00 PM CDT documented in this encounter Discharge Summaries Brandon Rosen MD - 12/27/2018 1:48 PM CDT GENERAL NEUROLOGY DISCHARGE SUMMARY Date of Service: 12/27/2018 14:10 ADMIT DATE: 12/25/2018 DISCHARGE DATE: 12/27/2018 14:10 ATTENDING MD: Carlin GAN MD: Tiffany PCP: PATIENT DOES NOT HAVE A PCP CHIEF COMPLAINT Bilateral leg weakness. FINAL DIAGNOSIS ? Neuropathy SECONDARY DIAGNOSIS: Atrial fibrillation HOSPITAL COURSE Renetta Dey is a 68 year old female with PMH of DM2, CABG, and femoral popliteal bypass surgery presenting with weakness, numbness, and tingling of the bilateral lower extremities that starteda couple days after November 07, 2018, when she tripped and fell, landing on her bottom, reports only hitting her coccyx. She reports receiving a lumbar spine x ray at the time which did not show any fracture. A couple of days later she noticed the weakness, numbness, and tingling in her legs. Also complains of tingling and shock-like sensations in her feet up to ankles. Believes weakness is unrelated to her fall. MRI spine was unremarkable and a CT head did not reveal major abnormalities other than a small hypoattenuation on the left temporal region, which does not explain her clinical presentation. The patientneeds a spinal tap to complete her work up. However, she is currently taking Eliquis and Plavix and there is an increased risk for bleeding. She did not want to go forward with the LP because of this risk and said she will follow up with her Manager Development before discontinuing any medication. She also needs an EMG/NCS, which is planned as an outpatient procedure. PLAN / ITEMS FOR FOLLOW UP PROVIDER: 1. Patient will follow up with her Manager Development to evaluate if Eliquis can be discontinued to have aspinal tap in the future, as well as an EMG/NCS. PHYSICAL EXAM ON DISCHARGE: General: Alert and oriented x 4 (time, person, place and situation); no apparent distress. Mental Status: Consciousness, attention, concentration: normal, Stays focused and on task while being questioned. Speech/ Language: intact to comprehension, fluency, repetition and naming. Fund of knowledge: is congruent with level of education. Remote and recent memory: normal, can recall recent and distant memories Cranial Nerves: I. Not tested. II. PERRL. FOV full to confrontation. No ptosis observed, no diplopia. III. IV., . Extraocular movements intact without nystagmus. V. Normal sensation in V1-3 distributions. VII. No facial droop noted. VIII. Hearing intact. IX., X. Palatal elevation present symmetrically. XI. Normal Strength of sternocleidomastoid and trapezius muscles bilaterally. XII. Tongue in midline. Motor: Tone: increased tone at the knees, patient unable to relax quadriceps b/l Bulk: normal STRENGTH Right Left Deltoid 5 5 Biceps 5 5 Triceps 5 5 Wrist extensors 5 5 Interossei 5 5 Hip flexors 3- 3- Knee flexors (hamstring) 3- 3- Knee extensors(quadriceps) 4- 4- Ankle dorsiflexors 2 2 Ankle plantarflexors 2 2 DTR's: Right Left Biceps 2+ 2+ Triceps 1+ 1+ Brachioradialis 1+ 1+ Patella 0 0 Achilles 0 0 Pathologic reflexes and signs: Oakley: absent Babinski: absent Cerebellar: Nystagmus: neg, FTN: nl, HTS:nl, Tremors: neg, Dysdiadochokinesia: neg Sensory: Intact in the upper extremities to all modalities. Lower extremity sensory: Temperature:decreased on right from knee down, decreased on left from mid- wade down. PP: length dependent sensory loss Proprioception:absent on both legs Vibration: intactabove knee only bilaterally Gait: deferred, cannot walk HEENT: pupils equal, round, reactive to light; extraocular movements intact; oropharynx clear; moistmucous membranes Lungs: clear to auscultation bilaterally Cardio: S1, S2 normal Extremities:no cyanosis,clubbing or edema Neck:supple,no carotid bruit,no JVD Abdomen: soft; non-tender; non-distended; normoactive bowel sounds heard PROCEDURES: None PERTINENT LABORATORY/IMAGING FINDINGS: Hospital Encounter on 12/25/18 MR THORACIC SPINE W WO CONTRAST Narrative * * * * * * * * ORIGINAL REPORT * * * * * * * * MR THORACIC SPINE W WO CONTRAST, MR CERVICAL SPINE W WO CONTRAST, MR LUMBAR SPINE W WO CONTRAST HISTORY: Female 68 years b/l leg weakness COMPARISON: None TECHNIQUE: Multiplanar multi weighted imaging of the cervical, thoracic and lumbar spine were obtained before and following the administration of 12 mL IV Dotarem MRI CERVICAL SPINE: The vertebral bodies are normal in height and in normal alignment. The cervical cord is normal in caliber and demonstrates normal signal intensity. No focus of abnormal cord enhancement is present. The background marrow signal is unremarkable. A vertebral body hemangioma is present in the anterior aspect of the C5 vertebra. The intervertebral disc space heights are preserved. C2-C3: No significant spinal canal stenosis or neural foraminal narrowing C3-C4: No significant spinal canal stenosis or neural foraminal narrowing C4-C5: No significant spinal canal stenosis or neural foraminal narrowing C5-C6: A shallow posterior disc osteophyte complex and uncinate hypertrophy result in minimal spinal canal stenosis and mild right neural foraminal narrowing C6-C7: No significant spinal canal stenosis or neural foraminal narrowing C7-T1: No significant spinal canal stenosis or neural foraminal narrowing MRI THORACIC SPINE: The vertebral bodies are normal in height and in normal alignment. The thoracic cord is normal in caliber and demonstrates normal signal intensity. No focus of abnormal cord enhancement is present. The background marrow signal is unremarkable. The intervertebral disc space heights are relatively preserved. Scattered small Schmorl's nodes are noted. Small disc protrusions are noted at the T3-T4, T7-T8 and T11-T12 levels resulting in no more than minimal central canal narrowing. No high-grade neural foraminal narrowing is present at any level. MRI LUMBAR SPINE: Minimal anterolisthesis of L4 on L5 and L5 on S1. The vertebral bodies are normal in height and in otherwise normal alignment. The conus terminates at the level of T12. The cauda equina nerve roots are unremarkable. No abnormal enhancement is present within the conus or along the cauda equina. The background marrow signal is unremarkable. Hyperintense STIR signal and enhancement are noted about the left L4-L5 and bilateral L5-S1 facets. The intervertebral disc space heights are preserved. L1-L2: No significant spinal canal stenosis or neural foraminal narrowing L2-L3: No significant spinal canal stenosis or neural foraminal narrowing L3-L4: No significant spinal canal stenosis or neural foraminal narrowing L4-L5: Mild facet arthropathy and ligamentum flavum thickening result in no significant spinal canal stenosis or neural foraminal narrowing. An annular fissure is present in the left posterior lateral aspect of the disc. L5-S1: Mild facet arthropathy results in no significant spinal canal stenosis or neural foraminal narrowing Mild hyperintense STIR signal and enhancement is also noted in the paraspinalis muscles in the mid and lower lumbar spine. Impression No significant spinal canal stenosis or neural foraminal narrowing is present at any cervical, thoracic or lumbar level. No cord signal abnormality or enhancement is present. Overall mild degenerative changes are present. Minimal spondylolisthesis at L4-L5 and L5-S1 is associated with moderate facet arthropathy at these levels with reactive, inflammatory edema involving the facets, more pronounced on the left. Nonspecific mild intramuscular edema in the mid and lower paraspinalis muscles. MR LUMBAR SPINE W WO CONTRAST Narrative * * * * * * * * ORIGINAL REPORT * * * * * * * * MR THORACIC SPINE W WO CONTRAST, MR CERVICAL SPINE W WO CONTRAST, MR LUMBAR SPINE W WO CONTRAST HISTORY: Female 68 years b/l leg weakness COMPARISON: None TECHNIQUE: Multiplanar multi weighted imaging of the cervical, thoracic and lumbar spine were obtained before and following the administration of 12 mL IV Dotarem MRI CERVICAL SPINE: The vertebral bodies are normal in height and in normal alignment. The cervical cord is normal in caliber and demonstrates normal signal intensity. No focus of abnormal cord enhancement is present. The background marrow signal is unremarkable. A vertebral body hemangioma is present in the anterior aspect of the C5 vertebra. The intervertebral disc space heights are preserved. C2-C3: No significant spinal canal stenosis or neural foraminal narrowing C3-C4: No significant spinal canal stenosis or neural foraminal narrowing C4-C5: No significant spinal canal stenosis or neural foraminal narrowing C5-C6: A shallow posterior disc osteophyte complex and uncinate hypertrophy result in minimal spinal canal stenosis and mild right neural foraminal narrowing C6-C7: No significant spinal canal stenosis or neural foraminal narrowing C7-T1: No significant spinal canal stenosis or neural foraminal narrowing MRI THORACIC SPINE: The vertebral bodies are normal in height and in normal alignment. The thoracic cord is normal in caliber and demonstrates normal signal intensity. No focus of abnormal cord enhancement is present. The background marrow signal is unremarkable. The intervertebral disc space heights are relatively preserved. Scattered small Schmorl's nodes are noted. Small disc protrusions are noted at the T3-T4, T7-T8 and T11-T12 levels resulting in no more than minimal central canal narrowing. No high-grade neural foraminal narrowing is present at any level. MRI LUMBAR SPINE: Minimal anterolisthesis of L4 on L5 and L5 on S1. The vertebral bodies are normal in height and in otherwise normal alignment. The conus terminates at the level of T12. The cauda equina nerve roots are unremarkable. No abnormal enhancement is present within the conus or along the cauda equina. The background marrow signal is unremarkable. Hyperintense STIR signal and enhancement are noted about the left L4-L5 and bilateral L5-S1 facets. The intervertebral disc space heights are preserved. L1-L2: No significant spinal canal stenosis or neural foraminal narrowing L2-L3: No significant spinal canal stenosis or neural foraminal narrowing L3-L4: No significant spinal canal stenosis or neural foraminal narrowing L4-L5: Mild facet arthropathy and ligamentum flavum thickening result in no significant spinal canal stenosis or neural foraminal narrowing. An annular fissure is present in the left posterior lateral aspect of the disc. L5-S1: Mild facet arthropathy results in no significant spinal canal stenosis or neural foraminal narrowing Mild hyperintense STIR signal and enhancement is also noted in the paraspinalis muscles in the mid and lower lumbar spine. Impression No significant spinal canal stenosis or neural foraminal narrowing is present at any cervical, thoracic or lumbar level. No cord signal abnormality or enhancement is present. Overall mild degenerative changes are present. Minimal spondylolisthesis at L4-L5 and L5-S1 is associated with moderate facet arthropathy at these levels with reactive, inflammatory edema involving the facets, more pronounced on the left. Nonspecific mild intramuscular edema in the mid and lower paraspinalis muscles. MR CERVICAL SPINE W WO CONTRAST Narrative * * * * * * * * ORIGINAL REPORT * * * * * * * * MR THORACIC SPINE W WO CONTRAST, MR CERVICAL SPINE W WO CONTRAST, MR LUMBAR SPINE W WO CONTRAST HISTORY: Female 68 years b/l leg weakness COMPARISON: None TECHNIQUE: Multiplanar multi weighted imaging of the cervical, thoracic and lumbar spine were obtained before and following the administration of 12 mL IV Dotarem MRI CERVICAL SPINE: The vertebral bodies are normal in height and in normal alignment. The cervical cord is normal in caliber and demonstrates normal signal intensity. No focus of abnormal cord enhancement is present. The background marrow signal is unremarkable. A vertebral body hemangioma is present in the anterior aspect of the C5 vertebra. The intervertebral disc space heights are preserved. C2-C3: No significant spinal canal stenosis or neural foraminal narrowing C3-C4: No significant spinal canal stenosis or neural foraminal narrowing C4-C5: No significant spinal canal stenosis or neural foraminal narrowing C5-C6: A shallow posterior disc osteophyte complex and uncinate hypertrophy result in minimal spinal canal stenosis and mild right neural foraminal narrowing C6-C7: No significant spinal canal stenosis or neural foraminal narrowing C7-T1: No significant spinal canal stenosis or neural foraminal narrowing MRI THORACIC SPINE: The vertebral bodies are normal in height and in normal alignment. The thoracic cord is normal in caliber and demonstrates normal signal intensity. No focus of abnormal cord enhancement is present. The background marrow signal is unremarkable. The intervertebral disc space heights are relatively preserved. Scattered small Schmorl's nodes are noted. Small disc protrusions are noted at the T3-T4, T7-T8 and T11-T12 levels resulting in no more than minimal central canal narrowing. No high-grade neural foraminal narrowing is present at any level. MRI LUMBAR SPINE: Minimal anterolisthesis of L4 on L5 and L5 on S1. The vertebral bodies are normal in height and in otherwise normal alignment. The conus terminates at the level of T12. The cauda equina nerve roots are unremarkable. No abnormal enhancement is present within the conus or along the cauda equina. The background marrow signal is unremarkable. Hyperintense STIR signal and enhancement are noted about the left L4-L5 and bilateral L5-S1 facets. The intervertebral disc space heights are preserved. L1-L2: No significant spinal canal stenosis or neural foraminal narrowing L2-L3: No significant spinal canal stenosis or neural foraminal narrowing L3-L4: No significant spinal canal stenosis or neural foraminal narrowing L4-L5: Mild facet arthropathy and ligamentum flavum thickening result in no significant spinal canal stenosis or neural foraminal narrowing. An annular fissure is present in the left posterior lateral aspect of the disc. L5-S1: Mild facet arthropathy results in no significant spinal canal stenosis or neural foraminal narrowing Mild hyperintense STIR signal and enhancement is also noted in the paraspinalis muscles in the mid and lower lumbar spine. Impression No significant spinal canal stenosis or neural foraminal narrowing is present at any cervical, thoracic or lumbar level. No cord signal abnormality or enhancement is present. Overall mild degenerative changes are present. Minimal spondylolisthesis at L4-L5 and L5-S1 is associated with moderate facet arthropathy at these levels with reactive, inflammatory edema involving the facets, more pronounced on the left. Nonspecific mild intramuscular edema in the mid and lower paraspinalis muscles. CT HEAD WO CONTRAST Narrative * * * * * * * * ORIGINAL REPORT * * * * * * * * Exam: CT HEAD WO CONTRAST Clinical History: Neuro deficit(s), subacute Technique:CT head without contrast Comparison: None Findings: Prominence of the ventricles and sulci likely secondary to volume loss. No hydrocephalus or pathological extra-axial collection noted. Basal cisterns are unremarkable. No acute intracranial hemorrhage. Probable chronic ischemic changes. Asymmetric hypoattenuation in the left temporal white matter. Intracranial atherosclerosis. Bilateral mastoid air cells and paranasal sinuses are clear. Bilateral lens surgery. Hyperostosis frontalis interna. Impression Impression: No acute intracranial hemorrhage or mass effect. Nonspecific asymmetric hypoattenuation in the left temporal white matter may reflect sequela of infarct with encephalitis thought less likely. Clinically correlate. I, Jagdish Taylor MD., have reviewed this study and agree with the above report. DISCHARGE MEDICATIONS: Current Discharge Medication List CONTINUE these medications which have NOT CHANGED Details amLODIPine (NORVASC) 10 mg Take 10 mg by mouth. apixaban (ELIQUIS) 5 mg Take 5 mg by mouth. BYSTOLIC 10 mg tablet famotidine (PEPCID AC) 20 mg Take 20 mg by mouth. levothyroxine (SYNTHROID) 25 mcg Take 25 mcg by mouth. Melatonin 5 mg Take 5 mg by mouth. NEURONTIN 100 mg capsule !! rosuvastatin (CRESTOR) 20 mg Take 20 mg by mouth. Insulin Lisp & Lisp Prot (Hum) (HUMALOG MIX 75-25 KWIKPEN) 28 Units inject 28 Units under the skin 2 (two) times daily with meals. Qty: 16.8 mL, Refills: 3 Associated Diagnoses: Uncontrolled type 2 diabetes mellitus with hyperglycemia BD ULTRAFINE III MINI PEN 31 gauge x 3/16" Ndle USE DAILY WITH BALA Qty: 100 Each, Refills: 2 Associated Diagnoses: Type 2 diabetes mellitus without complication, without long-term current use of insulin aspirin 325 mg Take 325 mg by mouth daily. clopidogrel (PLAVIX) 75 mg Take 75 mg by mouth daily. !! ROSUVASTATIN CALCIUM (CRESTOR ORAL) Take by mouth. Indications: Patrient is unsure of dosage zolpidem (AMBIEN) 5 mg Take 5 mg by mouth at bedtime as needed for Insomnia. METFORMIN 1,000 mg tablet TAKE ONE TABLET BY MOUTH TWICE A DAY WITH FOOD Qty: 60 tablet, Refills: 0 Associated Diagnoses: Type 2 diabetes mellitus without complication, without long-term current use of insulin candesartan-hydrochlorothiazide (ATACAND HCT) 1 tablet Take 1 tablet by mouth daily. CARVEDILOL (COREG ORAL) Take by mouth. Indications: Patient is unsure of dosage !! - Potential duplicate medications found. Please discuss with provider. DISCHARGE DISPOSITION: Activity: as tolerated Discharged :Discharged: Home Condition at discharge: Fair PT/OT Follow-Up: No FOLLOW-UP APPOINTMENTS: Follow up with [facility] and with [facility] for EMG/NCS. No future appointments. Discharge Orders Regular Diet; Texture: Regular. Texture Regular. Diabetic: IDDM Discharge Condition - Discharge Condition: FAIR Discharge Activity Discharge Activity: As Tolerated Discharge Instructions Order Comments: Follow up with your sales associate fishing and discuss the possibility of discontinuing Eliquis for a few days in order to have a spinal tap and EMG/NCS ( electromyography/nerve conduction studies). For now, keep Eliquis unless your Manager Development is says otherwise. VTE Propylaxis- Was ordered during hospitalization EMGNCV Order Comments: Clinical History: Subacute bilateral leg weakness. Reason for test weakness Symptoms/Diagnoses Weakness Brandon Allen M.D Neurology (PGY-2) Doctor's Number: [id number] Pager: [phone] Associated attestation - Jorge Gillis - 12/27/2018 3:50 PM CDTI personally examined this patient today. In addition, I actively participated in the decision making process, and helped formulate the assessment and plan/ recommendations written in the resident's note. Also will have outpatient stroke work-up (CTA head and neck, TTE with saline bubble) for old CVA seen on CT head. Patient and her daughter very much want for her to go home today, and they both feel very strongly that she has adequate support at home, and that she not go to a SNF or rehab facility. documented in this encounter Progress Notes Keri Mireles, PT - 12/27/2018 1:55 PM CDT12/27/2018 1:56 PM Physical Therapy Note PT consult received and chart reviewed. Attempted to see patient for initial evaluation, however, patient is currently eating. Patient's caregiver reports patient is currently functioning at wheelchairlevel, already has DME for home use and pending discharge later today. PT will attempt another time as schedule permits. Keri Mireles PT, DPT Pager Number: [phone] Total time treatments:0 Total treatment time:0 Chery Valadez OT - 12/27/2018 8:29 AM CDT12/27/2018 0829 OCCUPATIONAL THERAPY NOTE: Consult received, chart reviewed, and eval attempted. MRI complete but still waiting for results. OTwill hold and follow up as patient medically cleared for out of bed and able to actively participate. Thank you. Concepcion Soto OTR [phone] signed by Chery Soto OT at 12/27/2018 8:31 AM Go Redding MD - 12/26/2018 1:27 PM CDT GENERAL NEUROLOGY PROGRESS NOTE DATE OF SERVICE: 12/26/2018 15:53 Day of Hospitalization: 1 CHIEF COMPLAINT: bilateral lower extremity weakness, numbness and tingling 24-HOUR EVENTS: - ordered MRI C,T,L spine - pending peripheral neuropathy labs workup - normal B12, folate, TSH SUBJECTIVE: Patient is in a good mood despite no change in her leg weakness, no new complaints. OBJECTIVE: PHYSICAL EXAM Vitals: 12/26/18 0800 12/26/18 1200 12/26/18 1442 12/26/18 1600 BP: (!) 179/56 (!) 169/55 (!) 157/59 Pulse: 70 67 72 73 Resp: 20 20 18 20 Temp: 36.8 C (98.2 F) 36.6 C (97.8 F) 36.7 C (98.1 F) TempSrc: Oral Oral Oral SpO2: 99% 98% 98% 100% Weight: Height: General: Alert and oriented x 4 (time, person, place and situation); no apparent distress. Mental Status: Consciousness, attention, concentration: normal, Stays focused and on task while being questioned. Speech/ Language: intact to comprehension, fluency, repetition and naming. Fund of knowledge: is congruent with level of education. Remote and recent memory: normal, can recall recent and distant memories Cranial Nerves: I. Not tested. II. PERRL. FOV full to confrontation. No ptosis observed, no diplopia. III. IV., . Extraocular movements intact without nystagmus. V. Normal sensation in V1-3 distributions. VII. No facial droop noted. VIII. Hearing intact. IX., X. Palatal elevation present symmetrically. XI. Normal Strength of sternocleidomastoid and trapezius muscles bilaterally. XII. Tongue in midline. Motor: Tone: increased tone at the knees, patient unable to relax quadriceps b/l Bulk: normal STRENGTH Right Left Deltoid 5 5 Biceps 5 5 Triceps 5 5 Wrist extensors 5 5 Interossei 5 5 Hip flexors 3- 3- Knee flexors (hamstring) 3- 3- Knee extensors (quadriceps) 4- 4- Ankle dorsiflexors 2 2 Ankle plantar flexors 2 2 DTR's: Right Left Biceps 2+ 2+ Triceps 1+ 1+ Brachioradialis 1+ 1+ Patella 0 0 Achilles 0 0 Pathologic reflexes and signs: Oakley: absent Babinski: absent Cerebellar: Nystagmus: neg, FTN: nl, HTS:nl, Tremors: neg, Dysdiadochokinesia: neg Sensory: Intact in the upper extremities to all modalities. Lower extremity sensory: Temperature: decreased on right from knee down, decreased on left from mid-wade down. PP: length dependent sensory loss Proprioception: absent on both legs Vibration: intact above knee only bilaterally Gait: deferred, cannot walk HEENT: pupils equal, round, reactive to light; extraocular movements intact; oropharynx clear; moistmucous membranes Lungs: clear to auscultation bilaterally Cardio: S1, S2 normal Extremities:no cyanosis,clubbing or edema Neck:supple,no carotid bruit,no JVD Abdomen: soft; non-tender; non-distended; normoactive bowel sounds heard MEDICATIONS Current Facility-Administered Medications Medication Dose Route Frequency Last Rate Last Dose acetaminophen (TYLENOL) tablet 650 mg 650 mg Oral Q6HPRN amLODIPine (NORVASC) tablet 10 mg 10 mg Oral DAILY 10 mg at 12/26/18 08 apixaban (ELIQUIS) tablet 5 mg 5 mg Oral BID 5 mg at 12/26/18 0819 aspirin tablet 325 mg 325 mg Oral DAILY clopidogrel (PLAVIX) tablet 75 mg 75 mg Oral DAILY 75 mg at 12/26/18 08 docusate (COLACE) capsule 100 mg 100 mg Oral DAILY 100 mg at 12/26/18 08 famotidine (PEPCID AC) tablet 20 mg 20 mg Oral BID 20 mg at 12/26/18 0819 gabapentin (NEURONTIN) capsule 300 mg 300 mg Oral TID 300 mg at 12/26/18 1436 insulin aspart RAPID (NOVOLOG U-100 INSULIN ASPART) injection 7 Units 7 Units Subcutaneous TID MEALS 7 Units at 12/26/18 1230 insulin glargine (LANTUS U-100) injection 17 Units 17 Units Subcutaneous BID 17 Units at 12/26/18 0826 levothyroxine (SYNTHROID) tablet 25 mcg 25 mcg Oral QAM-0600 25 mcg at 0609 melatonin (MELATIN) tablet 6 mg 6 mg Oral QHS 6 mg at 12/26/18 0107 NaCl 0.9% (NS) IV infusion 1,000 mL 1,000 mL IV Infusion CONTINUOUS 42 mL/ hr at 12/25/182203 1,000 mL at 12/25/18 220 rosuvastatin (CRESTOR) tablet 20 mg 20 mg Oral QHS Sliding Scale Insulin - Aspart (NOVOLOG) + Fsbg Testing Subcutaneous TID MEALS+HS Stopped at12/25/182124 LABS Recent Results (from the past 24 hour(s)) POCT GLUCOSE (AUTOMATED) Collection Time: 12/25/18 9:24 PM Result Value Ref Range POCT GLU 116 (H) 70 - 110 mg/dL Glycosylated Hemoglobin (A1C) Collection Time: 12/25/18 9:58 PM Result Value Ref Range HGB A1C 5.9 4.0 - 6.0 % Lipid Panel (Total Cholesterol, Triglycerides, HDL) - Fasting Collection Time: 12/25/18 9:58 PM Result Value Ref Range CHOL 138 120 - 200 mg/dL HDL 39 (L) >50 mg/dL HDLC RATIO 3.5 <=4.5 TRIG 196 (H) 30 - 170 mg/dL LDL CHOL 60 <=160 mg/dL VLDL 39 5 - 60 mg/dL BASIC METABOLIC PANEL (NA, K, CL, CO2, GLUCOSE, BUN, CREATININE, CA) Collection Time: 12/25/18 9:58 PM Result Value Ref Range NA 138 135 - 145 mmol/L K 3.1 (L) 3.5 - 5.0 mmol/L CL 104 98 - 108 mmol/L CO2 TOTAL 25 23 - 31 mmol/L AGAP 9 2 - 16 BUN 13 7 - 23 mg/dL GLUCOSE 110 70 - 110 mg/dL CREATININE 0.82 0.50 - 1.04 mg/dL CALCIUM 9.6 8.6 - 10.6 mg/dL eGFR Calculation (Non-) 69.5 mL/min/1.73m2 eGFR Calculation () 84.3 mL/min/1.73m2 HEPATIC FUNCTION PANEL (15492) (ALB,T.PRO,BILI T,BU/BC,ALT,AST,ALK PHOS) Collection Time: 12/25/18 9:58 PM Result Value Ref Range TOTAL BILI 0.8 0.1 - 1.1 mg/dL BILI UNCON 0.5 0.1 - 1.1 mg/dL BILI CONJ 0.0 0.0 - 0.3 mg/dL T PROTEIN 7.1 6.3 - 8.2 g/dL ALBUMIN 4.3 3.5 - 5.0 g/dL ALK PHOS 68 34 - 122 U/L ALT(SGPT) 25 9 - 51 U/L AST(SGOT) 39 13 - 40 U/L Magnesium Serum Collection Time: 12/25/18 9:58 PM Result Value Ref Range MAGNESIUM 2.1 1.7 - 2.4 mg/dL Phosphorus Serum Collection Time: 12/25/18 9:58 PM Result Value Ref Range PHOSPHORUS 3.6 2.5 - 5.0 mg/dL CBC WITH DIFFERENTIAL Collection Time: 12/25/18 9:58 PM Result Value Ref Range WBC 6.61 4.30 - 11.10 10*3/L RBC 3.14 (L) 3.93 - 5.25 10*6/L HGB 9.4 (L) 11.6 - 15.0 g/dL HCT 28.9 (L) 35.7 - 45.2 % MCV 92.0 80.6 - 95.5 fL MCH 29.9 25.9 - 32.8 pg MCHC 32.5 31.6 - 35.1 g/dL RDW-SD 44.5 39.0 - 49.9 fL RDW-CV 13.4 12.0 - 15.5 % PLT 233 166 - 358 10*3/L MPV 9.2 (L) 9.5 - 12.9 fL NRBC/100 WBC 0.0 0.0 - 10.0 /100 WBCs NRBC x10^3 <0.01 10*3/L GRAN MAT (NEUT) % 61.8 % IMM GRAN % 0.30 % LYMPH % 28.1 % MONO % 7.3 % EOS % 1.7 % BASO % 0.8 % GRAN MAT x10^3(ANC) 4.09 1.88 - 7.09 10*3/uL IMM GRAN x10^3 <0.03 0.00 - 0.06 10*3/uL LYMPH x10^3 1.86 1.32 - 3.29 10*3/uL MONO x10^3 0.48 0.33 - 0.92 10*3/uL EOS x10^3 0.11 0.03 - 0.39 10*3/uL BASO x10^3 0.05 0.01 - 0.07 10*3/uL THYROID STIMULATING HORMONE Collection Time: 12/25/18 9:58 PM Result Value Ref Range TSH 2.57 0.45 - 4.70 mIU/L CREATINE KINASE Collection Time: 12/25/18 9:58 PM Result Value Ref Range CK 58 33 - 194 U/L VITAMIN B12, LEVEL Collection Time: 12/25/18 9:58 PM Result Value Ref Range VIT B12 632 240 - 930 pg/mL FOLATE Collection Time: 12/25/18 9:58 PM Result Value Ref Range FOLATE SER >20.0 (H) 3.0 - 20.0 ng/mL CBC WITH DIFFERENTIAL Collection Time: 12/25/18 9:58 PM Result Value Ref Range WBC 6.61 4.30 - 11.10 10*3/L RBC 3.14 (L) 3.93 - 5.25 10*6/L HGB 9.6 (L) 11.6 - 15.0 g/dL HCT 28.5 (L) 35.7 - 45.2 % MCV 90.8 80.6 - 95.5 fL MCH 30.6 25.9 - 32.8 pg MCHC 33.7 31.6 - 35.1 g/dL RDW-SD 44.7 39.0 - 49.9 fL RDW-CV 13.4 12.0 - 15.5 % PLT 249 166 - 358 10*3/L MPV 9.7 9.5 - 12.9 fL NRBC/100 WBC 0.0 0.0 - 10.0 /100 WBCs NRBC x10^3 <0.01 10*3/L GRAN MAT (NEUT) % 61.8 % IMM GRAN % 0.50 % LYMPH % 28.1 % MONO % 7.1 % EOS % 1.7 % BASO % 0.8 % GRAN MAT x10^3(ANC) 4.09 1.88 - 7.09 10*3/uL IMM GRAN x10^3 0.03 0.00 - 0.06 10*3/uL LYMPH x10^3 1.86 1.32 - 3.29 10*3/uL MONO x10^3 0.47 0.33 - 0.92 10*3/uL EOS x10^3 0.11 0.03 - 0.39 10*3/uL BASO x10^3 0.05 0.01 - 0.07 10*3/uL Urinalysis Collection Time: 12/26/18 1:13 AM Result Value Ref Range APPEARANCE Clear Clear COLOR Straw (A) Yellow PH 7.0 4.8 - 8.0 SP GRAVITY 1.006 1.003 - 1.030 GLU U QUAL Normal Normal BLOOD Negative Negative KETONES Negative Negative PROTEIN Negative Negative UROBILIN Normal Normal BILIRUBIN Negative Negative NITRITE Negative Negative LEUK SHRADDHA 75/uL (A) Negative RBC/HPF 0 0 - 3 HPF WBC/HPF 6 (H) 0 - 5 HPF BACTERIA Few (A) Negative SQ EPITH 1 <=2 HPF BASIC METABOLIC PANEL (NA, K, CL, CO2, GLUCOSE, BUN, CREATININE, CA) Collection Time: 12/26/18 6:05 AM Result Value Ref Range NA 142 135 - 145 mmol/L K 4.6 3.5 - 5.0 mmol/L CL 110 (H) 98 - 108 mmol/L CO2 TOTAL 27 23 - 31 mmol/L AGAP 5 2 - 16 BUN 10 7 - 23 mg/dL GLUCOSE 128 (H) 70 - 110 mg/dL CREATININE 0.68 0.50 - 1.04 mg/dL CALCIUM 9.2 8.6 - 10.6 mg/dL eGFR Calculation (Non-) 86.3 mL/min/1.73m2 eGFR Calculation () 104.6 mL/min/1.73m2 HEPATIC FUNCTION PANEL (33938) (ALB,T.PRO,BILI T,BU/BC,ALT,AST,ALK PHOS) Collection Time: 12/26/18 6:05 AM Result Value Ref Range TOTAL BILI 0.9 0.1 - 1.1 mg/dL BILI UNCON 0.6 0.1 - 1.1 mg/dL BILI CONJ 0.0 0.0 - 0.3 mg/dL T PROTEIN 6.5 6.3 - 8.2 g/dL ALBUMIN 3.7 3.5 - 5.0 g/dL ALK PHOS 41 34 - 122 U/L ALT(SGPT) 27 9 - 51 U/L AST(SGOT) 36 13 - 40 U/L MAGNESIUM Collection Time: 12/26/18 6:05 AM Result Value Ref Range MAGNESIUM 2.0 1.7 - 2.4 mg/dL GLYCOSYLATED HEMOGLOBIN (A1C) Collection Time: 12/26/18 6:08 AM Result Value Ref Range HGB A1C 5.9 4.0 - 6.0 % POCT GLUCOSE (AUTOMATED) Collection Time: 12/26/18 8:22 AM Result Value Ref Range POCT GLU 124 (H) 70 - 110 mg/dL POCT GLUCOSE (AUTOMATED) Collection Time: 12/26/18 11:37 AM Result Value Ref Range POCT GLU 138 (H) 70 - 110 mg/dL RADIOLOGY No final results containing an impression from the past 48 hours were found. ASSESSMENT AND PLAN Renetta Dey is a 68 year old female with PMH as above presenting with 6 -7 weeks of numbness, tingling and weakness of the b/l lower extremities. Strength is 3-/5 in LEs, DTRs absent in LEs, Babinski mute. Both small and large fiber sensations were diminished. Differential includes CIDP, diabetic neuropathy or other polyneuropathy from a nutrient deficiency. Patient has no back pain, urinary/bowel incontinence or UMN signs to suggest myelopathy and symptoms began 2 days after fall, making traumatic myelopathy less likely. Possible CIDP Diabetic neuropathy Less likely traumatic myelopathy - Admit to neurology - neurochecks q4h - MRI C,T,L spine ordered - pending TSH, SPEP/UPEP, Hgb A1C, Vit B12, folate, Vit B6, Vit B1, Cu, Zn, CK, aldolase - will likely do outpatient EMG/NCV Prophylaxis: DVT- heparin Stress Ulcer: pantoprazole Code status: full Case was discussed and seen with Dr. Jorge Gillis, neurology faculty. Neurology Pager: [phone] [place] [phone] Go Mayberry MD Neurology PGY-2 Pager [phone] HOSPITAL COURSE: Renetta Dey is a 68 year old female with PMH of DM2, CABG, and femoral popliteal bypass surgery presenting with weakness, numbness, and tingling of the bilateral lower extremities that starteda couple days after November 07, 2018, when she tripped and fell, landing on her bottom, reports only hitting her coccyx. She reports receiving a lumbar spine x ray at the time which did not show any fracture. A couple of days later she noticed the weakness, numbness, and tingling in her legs. Also complains of tingling and shock-like sensations in her feet up to ankles. Believes weakness is unrelated to her fall. Gerardo Kim RN - 12/26/2018 1:25 PM CDTCare Management Social Functional Assessment Patient Name: Renetta Dey Age: [age] year old Sex: female Previous admit date: N/A Current diagnosis and co-morbidities: subacute bilateral leg paralysis recent uncontrolled diabetes Readmission Questions: Was patient discharged from any acute care hospital within the last 30 days: Yes Were all questions regarding previous illness/diagnosis answered prior to discharge: No If No, comment: patients daughter states that her immediate life threatning issues where address butnot all of her life altering issues were addressed, patient was unable to ambulate after last admit Did you have any difficulties with your discharge instructions: Yes If Yes, comment: per daughter patient was not given written instructions at discharge Were you able to go to your follow-up discharge appointments: Yes Any difficulties after discharge with medications: No Any difficulties after discharge with transportation: No Any difficulties after discharge with physical conditions, support, or other limitations?: No Did patient refuse services that were recommended on the previous admission: No Was patient non-compliant with the previously recommended treatment: No If admitted from the ED did you call your primary MD or place a sick call/ request with your provider?: N/A Social Functional Assessment: Primary language spoken/preferred: Bangladeshi Mental Status: Alert & Oriented to Person,Place & Time Information given by: Self;Child Patient's support system: Child;Spouse;Other Name and number of support system: SAE[employer] DESIR [phone], Lexy Pelletier [phone] Primary Band Sawyer: Child;Other;Spouse Name and phone number of primary caregiver: [employer] caregiver MPOA: No Living Arrangement: Home: single story Address of living arrangement : [address] [place] [address] Persons living in home: Spouse;Other Names & numbers of persons living in home: caregiver 12 hours a day Barriers to returning home: None Baseline functional status- ambulation: Independent(week of november 07) Functional status-baseline personal care: Independent(week november 07) Baseline functional status- driving: Independent(week november 07) Baseline functional status- grocery shopping: Independent(week november 07) Functional status-baseline housekeeping: Independent(week november 07) Functional status-baseline meal prep: Independent(week november 07) Current functional status same as prior: No Current functional status- ambulation: Dependent Current functional status- personal care: Requires minimal to moderate assistance Current functional status- driving: Dependent Current functional status- grocery shopping: Dependent Current functional status-house keeping: Dependent Current functional status- meal preparation: Requires minimal to moderate assistance(caregiver, fay anderson) Do you have a PCP?: Yes Name of PCP: Dr Odell Zurita [phone] Home Health Care Agency: [facility] Agency: Other Provider Services: Yes Provider Agency: [facility] [phone] [facility] [id number] Provider agency days and hours: 12 DME Company: No(Private Pay) Equipment: Shower bench;Grab bars;Wheelchair: Manual;Walker;CPAP Hemodialysis: No Community resources utilized: None Funding Resources: Commercial Prescription coverage plan: [facility] where meds are filled: Other Other pharmacy: [facility] [address] Anticipated services prior to disharge: Continue Medical Eval Expected mode of discharge transportation: Personal vehicle;Same as support system Additional info required for discharge planning: Pending P/T O/T recommendation Recommended discharge plan: Home SFA Complete: Social Functional Assessment complete: Yes Alcohol Use Screening (AUDIT-C) How often do you have a drink containing alcohol?: Never SCORE: 0 Will follow up with PT/OT recs. Role of Care Management explained. JENNIFER Villanueva, RN Health Aide [facility] Care Management [email or web address] Chery Valadez OT - 12/26/2018 1:20 PM CDT12/26/2018 1320 OCCUPATIONAL THERAPY NOTE: Consult received and chart reviewed. Patient currently pending MRI of thoracic and lumbar spine and possibly lumbar pouncture. OT will follow-up after imaging/ testing is performed. OT will follow up with patient at a later time as schedule permitsTASHI Degroot [phone] signed by Chery Soto OT at 12/26/2018 1:21 PM Parminder Toth PT - 12/26/2018 11:07 AM CDT12/26/2018 11:07 AM Physical Therapy Note Consult received and chart reviewed. Patient currently pending MRI of thoracic and lumbar spine and possibly lumbar pouncture. PT will follow-up after imaging/ testing is performed. PT will follow up with patient at a later time as schedule permits. Thanks, Parminder Perales IV, PT, DPT Pager: [phone] documented in this encounter Plan of Treatment Name Type Priority Associated Diagnoses Date/Time COPPER, SERUM LAB Routine 12/26/2018 2:35 PM CDT ZINC, SERUM LAB Routine 12/26/2018 2:35 PM CDT ELECTROPHORESIS, SERUM & LAB Routine 12/26/2018 5:45 AM CDT URINE ALDOLASE LAB Routine 12/26/2018 2:35 PM CDT VITAMIN B6, PLASMA LAB Routine 12/26/2018 6:05 AM CDT VITAMIN B1 (THIAMINE), LAB Routine 12/26/2018 6:04 AM CDT WHOLE BLOOD ELECTROPHORESIS, SERUM LAB Routine 12/26/2018 6:07 AM CDT Electrophoresis, Urine LAB Routine 12/26/2018 5:45 AM CDT Name Type Priority Associated Diagnoses Order Schedule COPPER, SERUM LAB Routine ONCE for 1 Occurrences starting 12/26/2018 until 12/26/2018 ZINC, SERUM LAB Routine ONCE for 1 Occurrences starting 12/26/2018 until 12/26/2018 ELECTROPHORESIS, SERUM & LAB Routine ONCE for 1 Occurrences URINE starting 12/26/2018 until 12/26/2018 ALDOLASE LAB Routine ONCE for 1 Occurrences starting 12/26/2018 until 12/26/2018 VITAMIN B6, PLASMA LAB Routine ONCE for 1 Occurrences starting 12/26/2018 until 12/26/2018 VITAMIN B1 (THIAMINE), LAB Routine ONCE for 1 Occurrences WHOLE BLOOD starting 12/26/2018 until 12/26/2018 ELECTROPHORESIS, SERUM LAB Routine Once for 1 Occurrences starting 12/26/2018 until 12/26/2018, 1 completed Electrophoresis, Urine LAB Routine Once for 1 Occurrences starting 12/26/2018 until 12/26/2018, 1 completed CSF/PERSONAL [employer]CIAL ADVISOR SHUNT CULTURE LAB Routine ONCE for 1 Occurrences starting 12/27/2018 until 12/27/2018 CSF Culture LAB Routine ONCE for 1 Occurrences starting 12/27/2018 until 12/27/2018 Body Fluid Cell Count LAB Routine ONCE for 1 Occurrences starting 12/27/2018 until 12/27/2018 Cerebrospinal Fluid LAB Routine ONCE for 1 Occurrences Glucose starting 12/27/2018 until 12/27/2018 Cerebrospinal Fluid LAB Routine ONCE for 1 Occurrences Protein starting 12/27/2018 until 12/27/2018 Fungus (Routine) Culture LAB Routine ONCE for 1 Occurrences starting 12/27/2018 until 12/27/2018 EMGNCV EMG Routine Weakness of both lower Expected: 01/10/2019, extremities Expires: 12/28/2019 CT ANGIOGRAM NECK IMAGING Routine Weakness of both lower Expected: 2018, extremities Expires: 12/28/2019 CT ANGIOGRAM HEAD IMAGING Routine Weakness of both lower Expected: 2018, extremities Expires: 12/28/2019 Health Maintenance Due Date Last Done Comments [...] Procedure Name Priority Date/Time Associated Diagnosis Comments POCT GLUCOSE Routine 12/27/2018 4:43 Results for this (AUTOMATED) PM CDT procedure are in the results section. POCT GLUCOSE Routine 12/27/2018 12:27 Results for this (AUTOMATED) PM CDT procedure are in the results section. ACTIVATED PARTIAL BRUCE 12/27/2018 12:16 Results for this THRMPLAS PASQUALE PM CDT procedure are in the results section. PROTHROMBIN TIME / BRUCE 12/27/2018 12:16 Results for this INR PM CDT procedure are in the results section. CT HEAD WO CONTRAST BRUCE 12/27/2018 12:02 Weakness of both Results for this PM CDT lower extremities procedure are in the results section. POCT GLUCOSE Routine 12/27/2018 9:12 Results for this (AUTOMATED) AM CDT procedure are in the results section. MR THORACIC SPINE W Routine 12/27/2018 12:21 Weakness of both Results for this WO CONTRAST AM CDT lower extremities procedure are in the results section. MR LUMBAR SPINE W WO Routine 12/27/2018 12:21 Weakness of both Results for this CONTRAST AM CDT lower extremities procedure are in the results section. MR CERVICAL SPINE W Routine 12/27/2018 12:21 Weakness of both Results for this WO CONTRAST AM CDT lower extremities procedure are in the results section. POCT GLUCOSE Routine 12/26/2018 8:08 Results for this (AUTOMATED) PM CDT procedure are in the results section. POCT GLUCOSE Routine 12/26/2018 4:53 Results for this (AUTOMATED) PM CDT procedure are in the results section. POCT GLUCOSE Routine 12/26/2018 11:37 Results for this (AUTOMATED) AM CDT procedure are in the results section. POCT GLUCOSE Routine 12/26/2018 8:22 Results for this (AUTOMATED) AM CDT procedure are in the results section. GLYCOSYLATED Routine 12/26/2018 6:08 Results for this HEMOGLOBIN (A1C) AM CDT procedure are in the results section. BASIC METABOLIC PANEL Routine 12/26/2018 6:05 Results for this (NA, K, CL, CO2, AM CDT procedure are in GLUCOSE, BUN, the results CREATININE, CA) section. HEPATIC FUNCTION Routine 12/26/2018 6:05 Results for this PANEL (70233) AM CDT procedure are in (ALB,T.PRO,BILI the results T,BU/BC,ALT,AST,ALK section. PHOS) MAGNESIUM Routine 12/26/2018 6:05 Results for this AM CDT procedure are in the results section. URINALYSIS BRUCE 12/26/2018 1:13 Results for this AM CDT procedure are in the results section. CBC WITH DIFFERENTIAL Add-on 12/25/2018 9:58 Results for this PM CDT procedure are in the results section. CBC WITH DIFFERENTIAL BRUCE 12/25/2018 9:58 Results for this PM CDT procedure are in the results section. GLYCOSYLATED Routine 12/25/2018 9:58 Results for this HEMOGLOBIN (A1C) PM CDT procedure are in the results section. CBC WITH DIFF Routine 12/25/2018 9:58 Results for this PM CDT procedure are in the results section. CBC WITH DIFF BRUCE 12/25/2018 9:58 Results for this PM CDT procedure are in the results section. LIPID PANEL Routine 12/25/2018 9:58 Results for this (64722)(TOTAL PM CDT procedure are in CHOLESTEROL, the results TRIGLYCERIDES, HDL) section. BASIC METABOLIC PANEL BRUCE 12/25/2018 9:58 Results for this (NA, K, CL, CO2, PM CDT procedure are in GLUCOSE, BUN, the results CREATININE, CA) section. HEPATIC FUNCTION BRUCE 12/25/2018 9:58 Results for this PANEL (42252) PM CDT procedure are in (ALB,T.PRO,BILI the results T,BU/BC,ALT,AST,ALK section. PHOS) THYROID STIMULATING Add-on 12/25/2018 9:58 Results for this HORMONE PM CDT procedure are in the results section. FOLATE Add-on 12/25/2018 9:58 Results for this PM CDT procedure are in the results section. VITAMIN B12, LEVEL Add-on 12/25/2018 9:58 Results for this PM CDT procedure are in the results section. MAGNESIUM Routine 12/25/2018 9:58 Results for this PM CDT procedure are in the results section. CREATINE KINASE Add-on 12/25/2018 9:58 Results for this PM CDT procedure are in the results section. PHOSPHORUS Routine 12/25/2018 9:58 Results for this PM CDT procedure are in the results section. POCT GLUCOSE Routine 12/25/2018 9:24 Results for this (AUTOMATED) PM CDT procedure are in the results section. documented in this encounter Results POCT GLUCOSE (AUTOMATED) (12/27/2018 4:43 PM CDT) POCT GLU 123 (H) 70 - 110 mg/dL [facility] Specimen Blood Performing Organization Address City/State/Zipcode Phone Number [facility] CLIA: [id number], [address] [place] [address] [phone] [facility] POCT GLUCOSE (AUTOMATED) (12/27/2018 12:27 PM CDT) POCT GLU 170 (H) 70 - 110 mg/dL [facility] Specimen Blood Performing Organization Address City/[facility] Phone Number [facility] CLIA: [id number], [address] [place] [id number] [facility] aPTT (12/27/2018 12:16 PM CDT) APTT Patient 34 26 - 36 Seconds [facility] Specimen Blood - VENOUS Performing Organization Address City/[facility] Phone Number [facility] CLIA: [id number], [address] [place] [id number] [facility] PROTHROMBIN TIME / INR (12/27/2018 12:16 PM CDT) PROTIME PATIENT 17.7 (H) 10.1 - 12.6 [facility] Seconds SERVICES INR 1.6Comment: Normal [facility] INR <1.1; Warfarin SERVICES Therapeutic range 2.0 to 3.0 or 2.5 to 3.5, depending upon the indications. Specimen Blood - VENOUS Performing Organization Address [facility] Phone Number [facility] CLIA: [id number], [address] [place] [id number] [facility] CT HEAD WO CONTRAST (12/27/2018 12:02 PM CDT) Specimen Impressions Performed At Impression: PACS/VR/DOSE No acute intracranial hemorrhage or mass effect. Nonspecific asymmetric hypoattenuation in the left temporal white matter may reflect sequela of infarct with encephalitis thought less likely. Clinically correlate. I, MD. Ronaldo, have reviewed this study and agree with the above report. Narrative Performed At * * * * * * * * ORIGINAL REPORT * * * * * * * * PACS/VR/DOSE Exam: CT HEAD WO CONTRAST Clinical History: Neuro deficit(s), subacute Technique:CT head without contrast Comparison: None Findings: Prominence of the ventricles and sulci likely secondary to volume loss. No hydrocephalus or pathological extra-axial collection noted. Basal cisterns are unremarkable. No acute intracranial hemorrhage. Probable chronic ischemic changes. Asymmetric hypoattenuation in the left temporal white matter. Intracranial atherosclerosis. Bilateral mastoid air cells and paranasal sinuses are clear. Bilateral lens surgery. Hyperostosis frontalis interna. Procedure Note [facility], Radiant Results Inft User - 12/27/2018 1:23 PM CDT * * * * * * * * ORIGINAL REPORT * * * * * * * * Exam: CT HEAD WO CONTRAST Clinical History: Neuro deficit(s), subacute Technique:CT head without contrast Comparison: None Findings: Prominence of the ventricles and sulci likely secondary to volume loss. No hydrocephalus or pathological extra-axial collection noted. Basal cisterns are unremarkable. No acute intracranial hemorrhage. Probable chronic ischemic changes. Asymmetric hypoattenuation in the left temporal white matter. Intracranial atherosclerosis. Bilateral mastoid air cells and paranasal sinuses are clear. Bilateral lens surgery. Hyperostosis frontalis interna. IMPRESSION Impression: No acute intracranial hemorrhage or mass effect. Nonspecific asymmetric hypoattenuation in the left temporal white matter may reflect sequela of infarct with encephalitis thought less likely. Clinically correlate. I, Jagdish Taylor MD., have reviewed this study and agree with the above report. Performing Organization Address City/State/Zipcode Phone Number [employer] POCT GLUCOSE (AUTOMATED) (12/27/2018 9:12 AM CDT) POCT GLU 132 (H) 70 - 110 mg/dL [facility] Specimen Blood Performing Organization Address City/State/Zipcode Phone Number [facility] CLIA: [id number], [address] [place] [address] [facility] MR CERVICAL SPINE W WO CONTRAST (12/27/2018 12:21 AM CDT) Specimen Impressions Performed At PACS/VR/DOSE No significant spinal canal stenosis or neural foraminal narrowing is present at any cervical, thoracic or lumbar level. No cord signal abnormality or enhancement is present. Overall mild degenerative changes are present. Minimal spondylolisthesis at L4-L5 and L5-S1 is associated with moderate facet arthropathy at these levels with reactive, inflammatory edema involving the facets, more pronounced on the left. Nonspecific mild intramuscular edema in the mid and lower paraspinalis muscles. Narrative Performed At * * * * * * * * ORIGINAL REPORT * * * * * * * * PACS/VR/DOSE MR THORACIC SPINE W WO CONTRAST, MR CERVICAL SPINE W WO CONTRAST, MR LUMBAR SPINE W WO CONTRAST HISTORY: Female 68 years b/l leg weakness COMPARISON: None TECHNIQUE: Multiplanar multi weighted imaging of the cervical, thoracic and lumbar spine were obtained before and following the administration of 12 mL IV Dotarem MRI CERVICAL SPINE: The vertebral bodies are normal in height and in normal alignment. The cervical cord is normal in caliber and demonstrates normal signal intensity. No focus of abnormal cord enhancement is present. The background marrow signal is unremarkable. A vertebral body hemangioma is present in the anterior aspect of the C5 vertebra. The intervertebral disc space heights are preserved. C2-C3: No significant spinal canal stenosis or neural foraminal narrowing C3-C4: No significant spinal canal stenosis or neural foraminal narrowing C4-C5: No significant spinal canal stenosis or neural foraminal narrowing C5-C6: A shallow posterior disc osteophyte complex and uncinate hypertrophy result in minimal spinal canal stenosis and mild right neural foraminal narrowing C6-C7: No significant spinal canal stenosis or neural foraminal narrowing C7-T1: No significant spinal canal stenosis or neural foraminal narrowing MRI THORACIC SPINE: The vertebral bodies are normal in height and in normal alignment. The thoracic cord is normal in caliber and demonstrates normal signal intensity. No focus of abnormal cord enhancement is present. The background marrow signal is unremarkable. The intervertebral disc space heights are relatively preserved. Scattered small Schmorl's nodes are noted. Small disc protrusions are noted at the T3-T4, T7-T8 and T11-T12 levels resulting in no more than minimal central canal narrowing. No high-grade neural foraminal narrowing is present at any level. MRI LUMBAR SPINE: Minimal anterolisthesis of L4 on L5 and L5 on S1. The vertebral bodies are normal in height and in otherwise normal alignment. The conus terminates at the level of T12. The cauda equina nerve roots are unremarkable. No abnormal enhancement is present within the conus or along the cauda equina. The background marrow signal is unremarkable. Hyperintense STIR signal and enhancement are noted about the left L4-L5 and bilateral L5-S1 facets. The intervertebral disc space heights are preserved. L1-L2: No significant spinal canal stenosis or neural foraminal narrowing L2-L3: No significant spinal canal stenosis or neural foraminal narrowing L3-L4: No significant spinal canal stenosis or neural foraminal narrowing L4-L5: Mild facet arthropathy and ligamentum flavum thickening result in no significant spinal canal stenosis or neural foraminal narrowing. An annular fissure is present in the left posterior lateral aspect of the disc. L5-S1: Mild facet arthropathy results in no significant spinal canal stenosis or neural foraminal narrowing Mild hyperintense STIR signal and enhancement is also noted in the paraspinalis muscles in the mid and lower lumbar spine. Procedure Note [facility], Radiant Results Inft User - 12/27/2018 8:34 AM CDT * * * * * * * * ORIGINAL REPORT * * * * * * * * MR THORACIC SPINE W WO CONTRAST, MR CERVICAL SPINE W WO CONTRAST, MR LUMBAR SPINE W WO CONTRAST HISTORY: Female 68 years b/l leg weakness COMPARISON: None TECHNIQUE: Multiplanar multi weighted imaging of the cervical, thoracic and lumbar spine were obtained before and following the administration of 12 mL IV Dotarem MRI CERVICAL SPINE: The vertebral bodies are normal in height and in normal alignment. The cervical cord is normal in caliber and demonstrates normal signal intensity. No focus of abnormal cord enhancement is present. The background marrow signal is unremarkable. A vertebral body hemangioma is present in the anterior aspect of the C5 vertebra. The intervertebral disc space heights are preserved. C2-C3: No significant spinal canal stenosis or neural foraminal narrowing C3-C4: No significant spinal canal stenosis or neural foraminal narrowing C4-C5: No significant spinal canal stenosis or neural foraminal narrowing C5-C6: A shallow posterior disc osteophyte complex and uncinate hypertrophy result in minimal spinal canal stenosis and mild right neural foraminal narrowing C6-C7: No significant spinal canal stenosis or neural foraminal narrowing C7-T1: No significant spinal canal stenosis or neural foraminal narrowing MRI THORACIC SPINE: The vertebral bodies are normal in height and in normal alignment. The thoracic cord is normal in caliber and demonstrates normal signal intensity. No focus of abnormal cord enhancement is present. The background marrow signal is unremarkable. The intervertebral disc space heights are relatively preserved. Scattered small Schmorl's nodes are noted. Small disc protrusions are noted at the T3-T4, T7-T8 and T11-T12 levels resulting in no more than minimal central canal narrowing. No high-grade neural foraminal narrowing is present at any level. MRI LUMBAR SPINE: Minimal anterolisthesis of L4 on L5 and L5 on S1. The vertebral bodies are normal in height and in otherwise normal alignment. The conus terminates at the level of T12. The cauda equina nerve roots are unremarkable. No abnormal enhancement is present within the conus or along the cauda equina. The background marrow signal is unremarkable. Hyperintense STIR signal and enhancement are noted about the left L4-L5 and bilateral L5-S1 facets. The intervertebral disc space heights are preserved. L1-L2: No significant spinal canal stenosis or neural foraminal narrowing L2-L3: No significant spinal canal stenosis or neural foraminal narrowing L3-L4: No significant spinal canal stenosis or neural foraminal narrowing L4-L5: Mild facet arthropathy and ligamentum flavum thickening result in no significant spinal canal stenosis or neural foraminal narrowing. An annular fissure is present in the left posterior lateral aspect of the disc. L5-S1: Mild facet arthropathy results in no significant spinal canal stenosis or neural foraminal narrowing Mild hyperintense STIR signal and enhancement is also noted in the paraspinalis muscles in the mid and lower lumbar spine. IMPRESSION No significant spinal canal stenosis or neural foraminal narrowing is present at any cervical, thoracic or lumbar level. No cord signal abnormality or enhancement is present. Overall mild degenerative changes are present. Minimal spondylolisthesis at L4-L5 and L5-S1 is associated with moderate facet arthropathy at these levels with reactive, inflammatory edema involving the facets, more pronounced on the left. Nonspecific mild intramuscular edema in the mid and lower paraspinalis muscles. Performing Organization Address City/State/Zipcode Phone Number PACS/VR/DOSE MR THORACIC SPINE W WO CONTRAST (12/27/2018 12:21 AM CDT) Specimen Impressions Performed At PACS/VR/DOSE No significant spinal canal stenosis or neural foraminal narrowing is present at any cervical, thoracic or lumbar level. No cord signal abnormality or enhancement is present. Overall mild degenerative changes are present. Minimal spondylolisthesis at L4-L5 and L5-S1 is associated with moderate facet arthropathy at these levels with reactive, inflammatory edema involving the facets, more pronounced on the left. Nonspecific mild intramuscular edema in the mid and lower paraspinalis muscles. Narrative Performed At * * * * * * * * ORIGINAL REPORT * * * * * * * * PACS/VR/DOSE MR THORACIC SPINE W WO CONTRAST, MR CERVICAL SPINE W WO CONTRAST, MR LUMBAR SPINE W WO CONTRAST HISTORY: Female 68 years b/l leg weakness COMPARISON: None TECHNIQUE: Multiplanar multi weighted imaging of the cervical, thoracic and lumbar spine were obtained before and following the administration of 12 mL IV Dotarem MRI CERVICAL SPINE: The vertebral bodies are normal in height and in normal alignment. The cervical cord is normal in caliber and demonstrates normal signal intensity. No focus of abnormal cord enhancement is present. The background marrow signal is unremarkable. A vertebral body hemangioma is present in the anterior aspect of the C5 vertebra. The intervertebral disc space heights are preserved. C2-C3: No significant spinal canal stenosis or neural foraminal narrowing C3-C4: No significant spinal canal stenosis or neural foraminal narrowing C4-C5: No significant spinal canal stenosis or neural foraminal narrowing C5-C6: A shallow posterior disc osteophyte complex and uncinate hypertrophy result in minimal spinal canal stenosis and mild right neural foraminal narrowing C6-C7: No significant spinal canal stenosis or neural foraminal narrowing C7-T1: No significant spinal canal stenosis or neural foraminal narrowing MRI THORACIC SPINE: The vertebral bodies are normal in height and in normal alignment. The thoracic cord is normal in caliber and demonstrates normal signal intensity. No focus of abnormal cord enhancement is present. The background marrow signal is unremarkable. The intervertebral disc space heights are relatively preserved. Scattered small Schmorl's nodes are noted. Small disc protrusions are noted at the T3-T4, T7-T8 and T11-T12 levels resulting in no more than minimal central canal narrowing. No high-grade neural foraminal narrowing is present at any level. MRI LUMBAR SPINE: Minimal anterolisthesis of L4 on L5 and L5 on S1. The vertebral bodies are normal in height and in otherwise normal alignment. The conus terminates at the level of T12. The cauda equina nerve roots are unremarkable. No abnormal enhancement is present within the conus or along the cauda equina. The background marrow signal is unremarkable. Hyperintense STIR signal and enhancement are noted about the left L4-L5 and bilateral L5-S1 facets. The intervertebral disc space heights are preserved. L1-L2: No significant spinal canal stenosis or neural foraminal narrowing L2-L3: No significant spinal canal stenosis or neural foraminal narrowing L3-L4: No significant spinal canal stenosis or neural foraminal narrowing L4-L5: Mild facet arthropathy and ligamentum flavum thickening result in no significant spinal canal stenosis or neural foraminal narrowing. An annular fissure is present in the left posterior lateral aspect of the disc. L5-S1: Mild facet arthropathy results in no significant spinal canal stenosis or neural foraminal narrowing Mild hyperintense STIR signal and enhancement is also noted in the paraspinalis muscles in the mid and lower lumbar spine. Procedure Note [facility], Radiant Results Inft User - 12/27/2018 8:34 AM CDT * * * * * * * * ORIGINAL REPORT * * * * * * * * MR THORACIC SPINE W WO CONTRAST, MR CERVICAL SPINE W WO CONTRAST, MR LUMBAR SPINE W WO CONTRAST HISTORY: Female 68 years b/l leg weakness COMPARISON: None TECHNIQUE: Multiplanar multi weighted imaging of the cervical, thoracic and lumbar spine were obtained before and following the administration of 12 mL IV Dotarem MRI CERVICAL SPINE: The vertebral bodies are normal in height and in normal alignment. The cervical cord is normal in caliber and demonstrates normal signal intensity. No focus of abnormal cord enhancement is present. The background marrow signal is unremarkable. A vertebral body hemangioma is present in the anterior aspect of the C5 vertebra. The intervertebral disc space heights are preserved. C2-C3: No significant spinal canal stenosis or neural foraminal narrowing C3-C4: No significant spinal canal stenosis or neural foraminal narrowing C4-C5: No significant spinal canal stenosis or neural foraminal narrowing C5-C6: A shallow posterior disc osteophyte complex and uncinate hypertrophy result in minimal spinal canal stenosis and mild right neural foraminal narrowing C6-C7: No significant spinal canal stenosis or neural foraminal narrowing C7-T1: No significant spinal canal stenosis or neural foraminal narrowing MRI THORACIC SPINE: The vertebral bodies are normal in height and in normal alignment. The thoracic cord is normal in caliber and demonstrates normal signal intensity. No focus of abnormal cord enhancement is present. The background marrow signal is unremarkable. The intervertebral disc space heights are relatively preserved. Scattered small Schmorl's nodes are noted. Small disc protrusions are noted at the T3-T4, T7-T8 and T11-T12 levels resulting in no more than minimal central canal narrowing. No high-grade neural foraminal narrowing is present at any level. MRI LUMBAR SPINE: Minimal anterolisthesis of L4 on L5 and L5 on S1. The vertebral bodies are normal in height and in otherwise normal alignment. The conus terminates at the level of T12. The cauda equina nerve roots are unremarkable. No abnormal enhancement is present within the conus or along the cauda equina. The background marrow signal is unremarkable. Hyperintense STIR signal and enhancement are noted about the left L4-L5 and bilateral L5-S1 facets. The intervertebral disc space heights are preserved. L1-L2: No significant spinal canal stenosis or neural foraminal narrowing L2-L3: No significant spinal canal stenosis or neural foraminal narrowing L3-L4: No significant spinal canal stenosis or neural foraminal narrowing L4-L5: Mild facet arthropathy and ligamentum flavum thickening result in no significant spinal canal stenosis or neural foraminal narrowing. An annular fissure is present in the left posterior lateral aspect of the disc. L5-S1: Mild facet arthropathy results in no significant spinal canal stenosis or neural foraminal narrowing Mild hyperintense STIR signal and enhancement is also noted in the paraspinalis muscles in the mid and lower lumbar spine. IMPRESSION No significant spinal canal stenosis or neural foraminal narrowing is present at any cervical, thoracic or lumbar level. No cord signal abnormality or enhancement is present. Overall mild degenerative changes are present. Minimal spondylolisthesis at L4-L5 and L5-S1 is associated with moderate facet arthropathy at these levels with reactive, inflammatory edema involving the facets, more pronounced on the left. Nonspecific mild intramuscular edema in the mid and lower paraspinalis muscles. Performing Organization Address City/State/Zipcode Phone Number PACS/VR/DOSE MR LUMBAR SPINE W WO CONTRAST (12/27/2018 12:21 AM CDT) Specimen Impressions Performed At PACS/VR/DOSE No significant spinal canal stenosis or neural foraminal narrowing is present at any cervical, thoracic or lumbar level. No cord signal abnormality or enhancement is present. Overall mild degenerative changes are present. Minimal spondylolisthesis at L4-L5 and L5-S1 is associated with moderate facet arthropathy at these levels with reactive, inflammatory edema involving the facets, more pronounced on the left. Nonspecific mild intramuscular edema in the mid and lower paraspinalis muscles. Narrative Performed At * * * * * * * * ORIGINAL REPORT * * * * * * * * PACS/VR/DOSE MR THORACIC SPINE W WO CONTRAST, MR CERVICAL SPINE W WO CONTRAST, MR LUMBAR SPINE W WO CONTRAST HISTORY: Female 68 years b/l leg weakness COMPARISON: None TECHNIQUE: Multiplanar multi weighted imaging of the cervical, thoracic and lumbar spine were obtained before and following the administration of 12 mL IV Dotarem MRI CERVICAL SPINE: The vertebral bodies are normal in height and in normal alignment. The cervical cord is normal in caliber and demonstrates normal signal intensity. No focus of abnormal cord enhancement is present. The background marrow signal is unremarkable. A vertebral body hemangioma is present in the anterior aspect of the C5 vertebra. The intervertebral disc space heights are preserved. C2-C3: No significant spinal canal stenosis or neural foraminal narrowing C3-C4: No significant spinal canal stenosis or neural foraminal narrowing C4-C5: No significant spinal canal stenosis or neural foraminal narrowing C5-C6: A shallow posterior disc osteophyte complex and uncinate hypertrophy result in minimal spinal canal stenosis and mild right neural foraminal narrowing C6-C7: No significant spinal canal stenosis or neural foraminal narrowing C7-T1: No significant spinal canal stenosis or neural foraminal narrowing MRI THORACIC SPINE: The vertebral bodies are normal in height and in normal alignment. The thoracic cord is normal in caliber and demonstrates normal signal intensity. No focus of abnormal cord enhancement is present. The background marrow signal is unremarkable. The intervertebral disc space heights are relatively preserved. Scattered small Schmorl's nodes are noted. Small disc protrusions are noted at the T3-T4, T7-T8 and T11-T12 levels resulting in no more than minimal central canal narrowing. No high-grade neural foraminal narrowing is present at any level. MRI LUMBAR SPINE: Minimal anterolisthesis of L4 on L5 and L5 on S1. The vertebral bodies are normal in height and in otherwise normal alignment. The conus terminates at the level of T12. The cauda equina nerve roots are unremarkable. No abnormal enhancement is present within the conus or along the cauda equina. The background marrow signal is unremarkable. Hyperintense STIR signal and enhancement are noted about the left L4-L5 and bilateral L5-S1 facets. The intervertebral disc space heights are preserved. L1-L2: No significant spinal canal stenosis or neural foraminal narrowing L2-L3: No significant spinal canal stenosis or neural foraminal narrowing L3-L4: No significant spinal canal stenosis or neural foraminal narrowing L4-L5: Mild facet arthropathy and ligamentum flavum thickening result in no significant spinal canal stenosis or neural foraminal narrowing. An annular fissure is present in the left posterior lateral aspect of the disc. L5-S1: Mild facet arthropathy results in no significant spinal canal stenosis or neural foraminal narrowing Mild hyperintense STIR signal and enhancement is also noted in the paraspinalis muscles in the mid and lower lumbar spine. Procedure Note [facility], Radiant Results Inft User - 12/27/2018 8:34 AM CDT * * * * * * * * ORIGINAL REPORT * * * * * * * * MR THORACIC SPINE W WO CONTRAST, MR CERVICAL SPINE W WO CONTRAST, MR LUMBAR SPINE W WO CONTRAST HISTORY: Female 68 years b/l leg weakness COMPARISON: None TECHNIQUE: Multiplanar multi weighted imaging of the cervical, thoracic and lumbar spine were obtained before and following the administration of 12 mL IV Dotarem MRI CERVICAL SPINE: The vertebral bodies are normal in height and in normal alignment. The cervical cord is normal in caliber and demonstrates normal signal intensity. No focus of abnormal cord enhancement is present. The background marrow signal is unremarkable. A vertebral body hemangioma is present in the anterior aspect of the C5 vertebra. The intervertebral disc space heights are preserved. C2-C3: No significant spinal canal stenosis or neural foraminal narrowing C3-C4: No significant spinal canal stenosis or neural foraminal narrowing C4-C5: No significant spinal canal stenosis or neural foraminal narrowing C5-C6: A shallow posterior disc osteophyte complex and uncinate hypertrophy result in minimal spinal canal stenosis and mild right neural foraminal narrowing C6-C7: No significant spinal canal stenosis or neural foraminal narrowing C7-T1: No significant spinal canal stenosis or neural foraminal narrowing MRI THORACIC SPINE: The vertebral bodies are normal in height and in normal alignment. The thoracic cord is normal in caliber and demonstrates normal signal intensity. No focus of abnormal cord enhancement is present. The background marrow signal is unremarkable. The intervertebral disc space heights are relatively preserved. Scattered small Schmorl's nodes are noted. Small disc protrusions are noted at the T3-T4, T7-T8 and T11-T12 levels resulting in no more than minimal central canal narrowing. No high-grade neural foraminal narrowing is present at any level. MRI LUMBAR SPINE: Minimal anterolisthesis of L4 on L5 and L5 on S1. The vertebral bodies are normal in height and in otherwise normal alignment. The conus terminates at the level of T12. The cauda equina nerve roots are unremarkable. No abnormal enhancement is present within the conus or along the cauda equina. The background marrow signal is unremarkable. Hyperintense STIR signal and enhancement are noted about the left L4-L5 and bilateral L5-S1 facets. The intervertebral disc space heights are preserved. L1-L2: No significant spinal canal stenosis or neural foraminal narrowing L2-L3: No significant spinal canal stenosis or neural foraminal narrowing L3-L4: No significant spinal canal stenosis or neural foraminal narrowing L4-L5: Mild facet arthropathy and ligamentum flavum thickening result in no significant spinal canal stenosis or neural foraminal narrowing. An annular fissure is present in the left posterior lateral aspect of the disc. L5-S1: Mild facet arthropathy results in no significant spinal canal stenosis or neural foraminal narrowing Mild hyperintense STIR signal and enhancement is also noted in the paraspinalis muscles in the mid and lower lumbar spine. IMPRESSION No significant spinal canal stenosis or neural foraminal narrowing is present at any cervical, thoracic or lumbar level. No cord signal abnormality or enhancement is present. Overall mild degenerative changes are present. Minimal spondylolisthesis at L4-L5 and L5-S1 is associated with moderate facet arthropathy at these levels with reactive, inflammatory edema involving the facets, more pronounced on the left. Nonspecific mild intramuscular edema in the mid and lower paraspinalis muscles. Performing Organization Address City/[facility]/Zipcode Phone Number PACS/VR/DOSE POCT GLUCOSE (AUTOMATED) (12/26/2018 8:08 PM CDT) POCT GLU 179 (H) 70 - 110 mg/dL [facility] Specimen Blood Performing Organization Address City/[facility]/Zipcode Phone Number [facility] CLIA: [id number], [address] [place] [address] [phone] [facility] POCT GLUCOSE (AUTOMATED) (12/26/2018 4:53 PM CDT) POCT GLU 101 70 - 110 mg/dL [facility] Specimen Blood Performing Organization Address [facility] Phone Number [facility] CLIA: [id number], [address] [place] [phone] [facility] POCT GLUCOSE (AUTOMATED) (12/26/2018 11:37 AM CDT) POCT GLU 138 (H) 70 - 110 mg/dL [facility] Specimen Blood Performing Organization Address City/[facility] Phone Number [facility] CLIA: [id number], [address] [place] [phone] [facility] POCT GLUCOSE (AUTOMATED) (12/26/2018 8:22 AM CDT) POCT GLU 124 (H) 70 - 110 mg/dL [facility] Specimen Blood Performing Organization Address City/[facility] Phone Number [facility] CLIA: [id number], [address] [place] [phone] [facility] GLYCOSYLATED HEMOGLOBIN (A1C) (12/26/2018 6:08 AM CDT) HGB A1C 5.9 4.0 - 6.0 % [facility] Specimen Blood - LINE, VENOUS Performing Organization Address [facility] Phone Number [facility] CLIA: [id number], [address] [place] [address] [facility] MAGNESIUM (12/26/2018 6:05 AM CDT) MAGNESIUM 2.0 1.7 - 2.4 mg/dL [facility] Specimen Blood - LINE, VENOUS Performing Organization Address [facility] Phone Number [facility] CLIA: [id number], [address] [place] [address] [phone] [facility] HEPATIC FUNCTION PANEL ([id number]) (ALB,T.PRO,BILI T,BU/BC,ALT,AST,ALK PHOS) (2018 6:05 AM CDT) TOTAL BILI 0.9 0.1 - 1.1 mg/dL [facility] BILI UNCON 0.6 0.1 - 1.1 mg/dL [facility] BILI CONJ 0.0 0.0 - 0.3 mg/dL [facility] T PROTEIN 6.5 6.3 - 8.2 g/dL [facility] ALBUMIN 3.7 3.5 - 5.0 g/dL [facility] ALK PHOS 41 34 - 122 U/L [facility] ALT(SGPT) 27 9 - 51 U/L [facility] AST(SGOT) 36 13 - 40 U/L [facility] Specimen Blood - LINE, VENOUS Performing Organization Address City/State/Zipcode Phone Number [facility] CLIA: [id number], [address] [place] [address] [facility] BASIC METABOLIC PANEL (NA, K, CL, CO2, GLUCOSE, BUN, CREATININE, CA) (2018 6:05 AM CDT) NA 142 135 - 145 [facility] mmol/L SERVICES K 4.6Comment: 3.5 - 5.0 [facility] Slight hemolysis mmol/L SERVICES CL 110 (H) 98 - 108 [facility] mmol/L SERVICES CO2 TOTAL 27 23 - 31 [facility] mmol/L SERVICES AGAP 5 2 - 16 [facility] BUN 10Comment: Slight 7 - 23 mg/dL [facility] hemolysis SERVICES GLUCOSE 128 (H) 70 - 110 [facility] mg/dL SERVICES CREATININE 0.68 0.50 - 1.04 [facility] mg/dL SERVICES CALCIUM 9.2 8.6 - 10.6 [facility] mg/dL SERVICES eGFR Calculation 86.3 mL/min/1.73m2 [facility] (Non- SERVICES Icelandic) eGFR Calculation 104.6 mL/min/1.73m2 [facility] () SERVICES Specimen Blood - LINE, VENOUS Narrative Performed At Association of Glomerular Filtration Rate (GFR) and Staging [facility] of Kidney Disease* + + + + | GFR (mL/min/1.73 m2)| With Kidney Damage|Without Kidney Damage + + + + |>90|Stage one| Normal + + + + |60-89|Stage two| Decreased GFR + + + + |30-59|Stage three| Stage three + + + + |15-29|Stage four | Stage four + + + + |<15 (or dialysis)|Stage five | Stage five + + + + *Each stage assumes the associated GFR level has been in effect for at least three months.Stages 1 to 5, with or without kidney disease, indicate chronic kidney disease. Notes: Determination of stages one and two (with eGFR >59mL/min/1.73 m2) requires estimation of kidney damage for at least three months as defined by structural or functional abnormalities of the kidney, manifested by either: Pathological abnormalities or Markers of kidney damage (including abnormalities in the composition of the blood or urine or abnormalities in imaging tests). Performing Organization Address City/State/Zipcode Phone Number [facility] CLIA: [id number], [address] [place] [phone] [facility] Urinalysis (12/26/2018 1:13 AM CDT) APPEARANCE Clear Clear [facility] COLOR Straw (A) Yellow [facility] PH 7.0 4.8 - 8.0 [facility] SP GRAVITY 1.006 1.003 - 1.030 [facility] GLU U QUAL Normal Normal [facility] BLOOD Negative Negative [facility] KETONES Negative Negative [facility] PROTEIN Negative Negative [facility] UROBILIN Normal Normal [facility] BILIRUBIN Negative Negative [facility] NITRITE Negative Negative [facility] LEUK SHRADDHA 75/uL (A) Negative [facility] RBC/HPF 0 0 - 3 HPF [facility] WBC/HPF 6 (H) 0 - 5 HPF [facility] BACTERIA Few (A) Negative [facility] SQ EPITH 1 <=2 HPF [facility] Specimen Urine - URINE, CLEAN CATCH Performing Organization Address City/[facility]/Zipcode Phone Number [facility] CLIA: [id number], [address] [place] [phone] [facility] CBC WITH DIFFERENTIAL (12/25/2018 9:58 PM CDT) WBC 6.61 4.30 - 11.10 [facility] 10*3/L SERVICES RBC 3.14 (L) 3.93 - 5.25 [facility] 10*6/L SERVICES HGB 9.6 (L) 11.6 - 15.0 [facility] g/dL SERVICES HCT 28.5 (L) 35.7 - 45.2 % [facility] MCV 90.8 80.6 - 95.5 fL [facility] MCH 30.6 25.9 - 32.8 pg [facility] MCHC 33.7 31.6 - 35.1 [facility] g/dL SERVICES RDW-SD 44.7 39.0 - 49.9 fL [facility] RDW-CV 13.4 12.0 - 15.5 % [facility] PLT 249 166 - 358 [facility] 10*3/L SERVICES MPV 9.7 9.5 - 12.9 fL [facility] NRBC/100 WBC 0.0 0.0 - 10.0 /100 [facility] WBCs SERVICES NRBC x10^3 <0.01 10*3/L [facility] GRAN MAT (NEUT) % 61.8 % [facility] IMM GRAN % 0.50 % [facility] LYMPH % 28.1 % [facility] MONO % 7.1 % [facility] EOS % 1.7 % [facility] BASO % 0.8 % [facility] GRAN MAT x10^3(ANC) 4.09 1.88 - 7.09 [facility] 10*3/uL SERVICES IMM GRAN x10^3 0.03 0.00 - 0.06 [facility] 10*3/uL SERVICES LYMPH x10^3 1.86 1.32 - 3.29 [facility] 10*3/uL SERVICES MONO x10^3 0.47 0.33 - 0.92 [facility] 10*3/uL SERVICES EOS x10^3 0.11 0.03 - 0.39 [facility] 10*3/uL SERVICES BASO x10^3 0.05 0.01 - 0.07 [facility] 10*3/uL SERVICES Specimen Blood - ARM, RIGHT Performing Organization Address City/[facility] Phone Number [facility] CLIA: [id number], [address] [place] [address] [facility] FOLATE (12/25/2018 9:58 PM CDT) FOLATE SER >20.0 (H) 3.0 - 20.0 ng/mL [facility] Specimen Blood - ARM, RIGHT Performing Organization Address City/[facility]/Zipcode Phone Number [facility] CLIA: [id number], [address] [place] [address] [phone] [facility] VITAMIN B12, LEVEL (12/25/2018 9:58 PM CDT) VIT B12 632 240 - 930 pg/mL [facility] Specimen Blood - ARM, RIGHT Narrative Performed At Biotin has been reported to cause a positive bias, interpret [facility] results relative to patient's use of biotin. Performing Organization Address City/State/Zipcode Phone Number [facility] CLIA: [id number], [address] [place] [address] [phone] [facility] CREATINE KINASE (12/25/2018 9:58 PM CDT) CK 58 33 - 194 U/L [facility] Specimen Blood - ARM, RIGHT Performing Organization Address City/State/Zipcode Phone Number [facility] CLIA: [id number], [address] [place] [address] [phone] [facility] THYROID STIMULATING HORMONE (12/25/2018 9:58 PM CDT) TSH 2.57 0.45 - 4.70 mIU/L [facility] Specimen Blood - ARM, RIGHT Performing Organization Address City/[facility] Phone Number [facility] CLIA: [id number], [address] [place] [address] [phone] [facility] CBC WITH DIFFERENTIAL (12/25/2018 9:58 PM CDT) WBC 6.61 4.30 - 11.10 [facility] 10*3/L SERVICES RBC 3.14 (L) 3.93 - 5.25 [facility] 10*6/L SERVICES HGB 9.4 (L) 11.6 - 15.0 [facility] g/dL SERVICES HCT 28.9 (L) 35.7 - 45.2 % [facility] MCV 92.0 80.6 - 95.5 fL [facility] MCH 29.9 25.9 - 32.8 pg [facility] MCHC 32.5 31.6 - 35.1 [facility] g/dL SERVICES RDW-SD 44.5 39.0 - 49.9 fL [facility] RDW-CV 13.4 12.0 - 15.5 % [facility] PLT 233 166 - 358 [facility] 10*3/L SERVICES MPV 9.2 (L) 9.5 - 12.9 fL [facility] SERVICES NRBC/100 WBC 0.0 0.0 - 10.0 /100 [facility] WBCs SERVICES NRBC x10^3 <0.01 10*3/L [facility] GRAN MAT (NEUT) % 61.8 % [facility] IMM GRAN % 0.30 % [facility] LYMPH % 28.1 % [facility] MONO % 7.3 % [facility] EOS % 1.7 % [facility] BASO % 0.8 % [facility] GRAN MAT x10^3(ANC) 4.09 1.88 - 7.09 [facility] 10*3/uL SERVICES IMM GRAN x10^3 <0.03 0.00 - 0.06 [facility] 10*3/uL SERVICES LYMPH x10^3 1.86 1.32 - 3.29 [facility] 10*3/uL SERVICES MONO x10^3 0.48 0.33 - 0.92 [facility] 10*3/uL SERVICES EOS x10^3 0.11 0.03 - 0.39 [facility] 10*3/uL SERVICES BASO x10^3 0.05 0.01 - 0.07 [facility] 10*3/uL SERVICES Specimen Blood - ARM, RIGHT Performing Organization Address [facility] Phone Number [facility] CLIA: [id number], [address] [place] [address] [phone] [facility] Phosphorus Serum (12/25/2018 9:58 PM CDT) PHOSPHORUS 3.6 2.5 - 5.0 mg/dL [facility] Specimen Blood - ARM, RIGHT Performing Organization Address [facility] Phone Number [facility] CLIA: [id number], [address] [place] [address] [facility] Magnesium Serum (12/25/2018 9:58 PM CDT) MAGNESIUM 2.1 1.7 - 2.4 mg/dL [facility] Specimen Blood - ARM, RIGHT Performing Organization Address [facility] Phone Number [facility] CLIA: [id number], [address] [place], [place] [address] [facility] HEPATIC FUNCTION PANEL ([id number]) (ALB,T.PRO,BILI T,BU/BC,ALT,AST,ALK PHOS) (2018 9:58 PM CDT) TOTAL BILI 0.8 0.1 - 1.1 mg/dL [facility] BILI UNCON 0.5 0.1 - 1.1 mg/dL [facility] BILI CONJ 0.0 0.0 - 0.3 mg/dL [facility] T PROTEIN 7.1 6.3 - 8.2 g/dL [facility] ALBUMIN 4.3 3.5 - 5.0 g/dL [facility] ALK PHOS 68 34 - 122 U/L [facility] ALT(SGPT) 25 9 - 51 U/L [facility] AST(SGOT) 39 13 - 40 U/L [facility] Specimen Blood - ARM, RIGHT Performing Organization Address City/State/Zipcode Phone Number [facility] CLIA: [id number], [address] [place] [address] [facility] BASIC METABOLIC PANEL (NA, K, CL, CO2, GLUCOSE, BUN, CREATININE, CA) (2018 9:58 PM CDT) NA 138 135 - 145 [facility] mmol/L SERVICES K 3.1 (L) 3.5 - 5.0 [facility] mmol/L SERVICES CL 104 98 - 108 mmol/L [facility] CO2 TOTAL 25 23 - 31 mmol/L [facility] AGAP 9 2 - 16 [facility] BUN 13 7 - 23 mg/dL [facility] GLUCOSE 110 70 - 110 mg/dL [facility] CREATININE 0.82 0.50 - 1.04 [facility] mg/dL SERVICES CALCIUM 9.6 8.6 - 10.6 [facility] mg/dL SERVICES eGFR Calculation 69.5 mL/min/1.73m2 [facility] (Non- SERVICES Icelandic) eGFR Calculation 84.3 mL/min/1.73m2 [facility] () SERVICES Specimen Blood - ARM, RIGHT Narrative Performed At [facility] Glomerular Filtration Rate (GFR) and Staging [facility] of Kidney Disease* + + + + | GFR (mL/min/1.73 m2)| With Kidney Damage|Without Kidney Damage + + + + |>90|Stage one| Normal + + + + |60-89|Stage two| Decreased GFR + + + + |30-59|Stage three| Stage three + + + + |15-29|Stage four | Stage four + + + + |<15 (or dialysis)|Stage five | Stage five + + + + *Each stage assumes the associated GFR level has been in effect for at least three months.Stages 1 to 5, with or without kidney disease, indicate chronic kidney disease. Notes: Determination of stages one and two (with eGFR >59mL/min/1.73 m2) requires estimation of kidney damage for at least three months as defined by structural or functional abnormalities of the kidney, manifested by either: Pathological abnormalities or Markers of kidney damage (including abnormalities in the composition of the blood or urine or abnormalities in imaging tests). Performing Organization Address [facility] Cent[facility] Phone Number [facility] CLIA: [id number], [address] [place] [address] [facility] Lipid Panel (Total Cholesterol, Triglycerides, HDL) - Fasting (12/25/2018 9:58 PM CDT) CHOL 138 120 - 200 mg/dL [facility] HDL 39 (L) >50 mg/dL [facility] HDLC RATIO 3.5 <=4.5 [facility] TRIG 196 (H) 30 - 170 mg/dL [facility] LDL CHOL 60 <=160 mg/dL [facility] VLDL 39 5 - 60 mg/dL [facility] Specimen Blood - ARM, RIGHT Performing Organization Address [facility] Phone Number [facility] CLIA: [id number], [address] [place] [phone] [facility] Glycosylated Hemoglobin (A1C) (12/25/2018 9:58 PM CDT) HGB A1C 5.9 4.0 - 6.0 % [facility] Specimen Blood - ARM, RIGHT Performing Organization Address [facility] Phone Number [facility] CLIA: [id number], [address] [place] [phone] [facility] POCT GLUCOSE (AUTOMATED) (12/25/2018 9:24 PM CDT) POCT GLU 116 (H) 70 - 110 mg/dL [facility] Specimen Blood Performing Organization Address City/State/Zipcode Phone Number [facility] CLIA: [id number], [address] [place] [address] [phone] [facility] documented in this encounter Visit Diagnoses Diagnosis Weakness of both lower extremities - Primary Lower extremity weakness Other musculoskeletal symptoms referable to limbs E44.0 Moderate protein calorie malnutrition Malnutrition of moderate degree documented in this encounter Administered Medications Medication Order MAR Action Action Date Dose Rate Site acetaminophen (TYLENOL) tablet 650 mg 650 mg, Oral, Q6HPRN, Starting Sun12/25/18 at 2350, Until Discontinued, BRUCE, Pain (scale 4-6) amLODIPine (NORVASC) tablet 10 mg Given 12/27/2018 8:51 AM CDT 10 mg 10 mg, Oral, DAILY, First dose on Priya 12/26/18 at 0900, Until Discontinued, Routine Given 12/26/2018 8:19 AM CDT 10 mg apixaban (ELIQUIS) tablet 5 mg Given 12/27/2018 8:51 AM CDT 5 mg 5 mg, Oral, BID, First dose on Priya 12/26/18 at 0800, Until Discontinued, Routine Given 12/26/2018 7:58 PM CDT 5 mg Given 12/26/2018 8:19 AM CDT 5 mg clopidogrel (PLAVIX) tablet 75 mg Given 12/27/2018 8:51 AM CDT 75 mg 75 mg, Oral, DAILY, First dose on Priya 12/26/18 at 0900, Until Discontinued, Routine Given 12/26/2018 8:19 AM CDT 75 mg docusate (COLACE) capsule 100 mg Given 12/27/2018 8:51 AM CDT 100 mg 100 mg, Oral, DAILY, First dose on Priya 12/26/18 at 0900, Until Discontinued, Routine Given 12/26/2018 8:19 AM CDT 100 mg famotidine (PEPCID AC) tablet 20 mg Given 12/27/2018 8:51 AM CDT 20 mg 20 mg, Oral, BID, First dose on Priya 12/26/18 at 0800, Until Discontinued, Routine Given 12/26/2018 7:57 PM CDT 20 mg Given 12/26/2018 8:19 AM CDT 20 mg gabapentin (NEURONTIN) capsule 300 mg Given 12/27/2018 12:10 PM CDT 300 mg 300 mg, Oral, TID, First dose on Sun12/26/18 at 0000, Until Discontinued, Routine Given 12/27/2018 4:07 AM CDT 300 mg Given 12/26/2018 7:57 PM CDT 300 mg insulin aspart RAPID Given 12/27/2018 1:06 PM CDT 7 Units Right Upper Arm-SC (NOVOLOG U-100 INSULIN ASPART) injection 7 Units 7 Units, Subcutaneous, TID MEALS, First dose on Sun12/26/18 at 0800, Until Discontinued, Routine Given 12/27/2018 8:59 AM CDT 7 Units Left Upper Arm-SC Given 12/26/2018 5:46 PM CDT 7 Units Abdomen-SC insulin glargine (LANTUS Given 12/27/2018 8:59 AM CDT 17 Units Left Upper Arm-SC U-100) injection 17 Units 17 Units, Subcutaneous, BID, First dose on Sun12/26/18 at 0800, Until Discontinued, Routine Given 12/26/2018 8:09 PM CDT 17 Units Left Arm Given 12/26/2018 8:26 AM CDT 17 Units Left Upper Arm-SC levothyroxine (SYNTHROID) tablet 25 mcg Given 12/27/2018 7:47 AM CDT 25 mcg 25 mcg, Oral, QAM-0600, First dose on Sun12/26/18 at 0600, Until Discontinued, Routine Given 12/26/2018 6:09 AM CDT 25 mcg melatonin (MELATIN) tablet 6 mg Given 12/26/2018 9:00 PM CDT 6 mg 6 mg, Oral, QHS, First dose on Sun12/26/18 at 0000, Until Discontinued Given 12/26/2018 1:07 AM CDT 6 mg NaCl 0.9% (NS) IV infusion 1,000 New Bag 12/25/2018 10:04 PM CDT 1,000 mL 42 mL/hr mL at 42 mL/hr, IV Infusion, CONTINUOUS, Starting Sun12/25/18 at 2100, Until Discontinued, Routine rosuvastatin (CRESTOR) tablet 20 mg Given 12/26/2018 7:58 PM CDT 20 mg 20 mg, Oral, QHS, First dose on Sun12/25/18 at 2100, Until Discontinued, Routine Sliding Scale Insulin - Aspart Given 12/27/2018 1:08 PM CDT 1 Units Abdomen-SC (NOVOLOG) + Fsbg Testing Subcutaneous, TID MEALS+HS, First dose on Sun12/25/18 at 2100, Until Discontinued, Routine Medication Order MAR Action Action Date Dose Rate Site gadoterate meglumine (DOTAREM-15 Given 12/27/2018 1:15 AM CDT 12 mL mL) injection 12 mL 12 mL (0.2 mL/kg 60 kg), Intravenous, ONCE, 1 dose, Sun12/27/18 at 0115, Routine KCL (KLOR-CON M20) tablet 40 mEq Given 12/26/2018 12:58 AM CDT 40 mEq 40 mEq, Oral, ONCE, 1 dose, Sun12/25/18 at 2330, Routine potassium acetate 40 mEq in NaCl 0.9% (NS) Given 12/26/2018 1:01 AM CDT 40 mEq piggyback 40 mEq, IV Piggyback, ONCE, 1 dose, [facility] 12/26/18 at 0030, 250 mL documented in this encounter documented as of this encounter
--- OUTSIDE RECORDS SUMMARY | 2019-01-13 11:35 | XMS REPORT | Summary of Care ---
:1950 Author Organization [facility] Address [address] [place] [id number] Care Team Providers Name Role Phone Pcp, Patient Does Not Have A Primary Care Provider Reason for Visit Reason Comments Rx Concern/Question Encounter Details Date Type Department Care Team Description 12/31/2018 Telephone [facility] Arthur Killian, Rx Concern/Question Neurology-Suzan KELLY [address] [place] [address], [address] [place] [address]. [address] [place] [phone] Allergies No Known Allergiesdocumented as of this encounter (statuses as of 01/03/2019) Medications Medication Sig Dispensed Refills Start Date [...] as of this encounter (statuses as of 01/03/2019) Active Problems Problem Noted Date E44.0 Moderate protein calorie malnutrition 12/26/2018 Lower extremity weakness 12/25/2018 Dyslipidemia 08/28/2016 Essential hypertension 08/28/2016 Type 2 diabetes mellitus without complication, with long-term current use 06/2016 of insulin documented as of this encounter (statuses as of 01/03/2019) Resolved Problems Problem Noted Date Resolved Date Type 2 diabetes mellitus without complication, without 04/05/2016 08/28/2016 long-term current use of insulin documented as of this encounter (statuses as of 01/03/2019) Social History Tobacco Use Types Packs/Day Years [...] 01/20/2019 Office Visit Neurology Arthur Killian MD [address] [place] [phone] Health Maintenance Due Date Last Done [...] Dates Phone Address Type DOUGLAS COLE III [id number] 2015-Present HMO/PPO/POS documented as of this encounter
--- OUTSIDE RECORDS SUMMARY | 2019-01-13 11:35 | XMS REPORT | Summary of Care ---
:1950 Author Organization [facility] - Health Address [address] [place] [address] Care Team Providers Name Role Phone Pcp, Patient Does Not Have A Primary Care Provider Encounter Details Date Type Department Care Team Description 12/06/2018 Orders Only [facility] Doctor Unassigned, No [address] [facility] Name [place] [phone] Allergies No Known Allergiesdocumented as of this [...] 2 07/25/2017 Active PEN 31 gauge x /16" BALA NdleIndications: Type 2 diabetes mellitus without [...] 01/20/2019 Office Visit Neurology Arthur Killian MD [address] [place] [phone] Health Maintenance Due Date Last Done [...] Procedure Name Priority Date/Time Associated Diagnosis Comments HOSPITAL ADMISSION Routine 12/06/2018 12:01 AM CDT documented in this encounter Results Not on filedocumented in this encounter Insurance Payer Benefit Plan / Group Subscriber ID Effective Dates Phone Address Type DOUGLAS COLE III [id number] 2015-Present HMO/PPO/POS documented as of this encounter
--- NOTE | 2019-01-13 11:38 | RAD REPORT ---
EXAM DESCRIPTION: CT - Ct Stroke Brain Wo Cont - 01/13/2019 11:33 am CLINICAL HISTORY: S/S of cva CVA symptomology COMPARISON: No comparisons TECHNIQUE: All CT scans are performed using dose optimization technique as appropriate and may inclu de automated exposure control or mA/KV adjustment according to patient size. FINDINGS: No intracranial hemorrhage, hydrocephalus or extra-axial fluid collection.No areas of brai n edema or evidence of midline shift. The paranasal sinuses and mastoids are clear. The calvarium is intact. IMPRESSION: No acute intracranial abnormality. The findings were discussed with Ghulam Holt in the ER on 01/13/2019 at 11:35 a.m. by telephone.
[2019-01-13 11:48] LABS: Absolute Lymphocytes (CBC) 1.3 K/uL (0.7-4.9); Basophils % 0.5 % (0-1.3); Hematocrit 31.8 % (36.0-45.0); Lymphocytes % 12.5 % (15.3-44.8); MPV 7.6 fL (7.6-11.3); RBC Red Blood Cell Count 3.56 M/uL (3.86-4.86)
[2019-01-13 11:51] LABS: Protime INR 1.78
[2019-01-13] MEDS ORDERED: NA CHLORIDE 0.9% 500 ML ONE (11:57)
[2019-01-13 12:07] LABS: Potassium 3.2 mmol/L (3.5-5.1)
--- NOTE | 2019-01-13 12:41 | RAD REPORT ---
EXAM DESCRIPTION: RAD - Chest Single View - 01/13/2019 12:24 pm CLINICAL HISTORY: md devorah frye Chest pain. COMPARISON: Chest Single View dated 11/25/2018; CHEST PA AND LAT 2 VIEW dated 07/04/2007 FINDINGS: Portable technique limits examination quality. The lungs are grossly clear. The heart is normal in size. No displaced fractures.Sternotomy wires pre sent. IMPRESSION: No acute intrathoracic process suspected.
[2019-01-13] MEDS ORDERED: HYDROCODONE/APAP 5/325 MG TAB ONE (12:49)
[2019-01-13] MEDS ORDERED: POTASSIUM CL SA 10 MEQ TAB PO ONE (12:58)
[2019-01-13 13:55] LABS: Urine Bacteria 20-50 /HPF (<20); Urine Culture Reflex Order NOT NEEDED; Urine RBC NONE SEEN /HPF (NONE SEEN)
[2019-01-13 15:20] LABS: Urine Blood NEGATIVE (NEG); Urine Glucose NEGATIVE (NEG)
[2019-01-13 15:21] LABS: Urine Protein NEGATIVE (NEG)
--- NOTE | 2019-01-13 15:24 | RAD REPORT ---
EXAM DESCRIPTION: MRI - MRA Head Wo Cont - 01/13/2019 2:59 pm CLINICAL HISTORY: Stroke protocol, slurred speech, right-sided facial droop COMPARISON: None. TECHNIQUE: Axial and coronal 3D [id number] image acquisition was performed. 3D rotational images were generated with source and reconstruction images reviewed. Horizontal and vertical axis rotation al views generated using MIP protocol. FINDINGS: No aneurysm or vascular malformation identified. No dissection seen. Basilar artery is tor tuous. Significant atherosclerotic changes involve or both A1 segments of the anterior cerebral arter ies. There is significant luminal narrowing. Significant luminal narrowing seen in the bilateral M2/ M3 segments of the middle cerebral arteries. More mild atherosclerotic changes in each posterior cere bral artery. IMPRESSION: Significant atherosclerotic changes present in the anterior cerebral and middle cerebral artery distributions with mild posterior cerebral distribution disease. No aneurysm, dissection or vascular malformation.
--- NOTE | 2019-01-13 15:27 | RAD REPORT ---
EXAM DESCRIPTION: MRI - MRA Neck W/Wo Cont - 01/13/2019 2:59 pm CLINICAL HISTORY: CVA COMPARISON: MR brain same date TECHNIQUE: MR angiography of the cervical vasculature performed. Coronal imaging plane acquisition u tilized. A MultiHance contrast volume was utilized. Coronal reformatted images were generated and re viewed. Vertical axis 3D rotational projections obtained using maximum intensity projection protocol. FINDINGS: Aortic arch is 3 vessel the configuration with no origin stenosis. No significant vertebra l artery origin disease seen. Left common carotid and left internal carotid artery show no significan t findings. The right CCA/ICA junction shows atherosclerotic change with 40% stenosis along the poste rior wall. No dissection identified. Visualized portions of the subclavian artery is normal. Vertebra l artery circled with no stenosis. There is tortuosity of the distal vertebral artery. IMPRESSION: MRA imaging shows approximately 40% stenosis at the right common carotid - internal hughes tid artery junction. No other significant disease identifiable.
--- NOTE | 2019-01-13 15:35 | RAD REPORT ---
EXAM DESCRIPTION: MRI - Brain W/Wo Cont - 01/13/2019 2:59 pm CLINICAL HISTORY: CVA COMPARISON: CT head same date TECHNIQUE: Sagittal and axial T1-weighted images were obtained. Axial PD/heavily T2-weighted and T2- FLAIR images were obtained along with axial DWI/ADC mapping sequences. Coronal heavily T2 weighted s equence obtained. Axial and coronal post-contrast T1-weighted images were also obtained. A 17 ml Mul tihance contrast following utilized. FINDINGS: No intracranial hemorrhage, mass or acute infarction. There is no edema or shift of midli ne structures. No extra-axial fluid collections. Iniguez-matter/white matter junction is preserved. Sig nal voids are seen as a normal finding in the major intracranial vessels. Small focus of encephalomal acia is present in the anteromedial left temporal lobe. Moderate chronic ischemic changes are present in the cerebral white matter. Atrophy is minimal. Post-contrast images show normal enhancement. No dural thickening. Mastoid air cells and paranasal sinuses are clear. IMPRESSION: No acute infarction. No acute intracranial finding seen. Patient has chronic ischemic change in the cerebral white matter and small area of encephalomalacia i n left temporal lobe.
[2019-01-13] MEDS ORDERED: CEFTRIAXONE/SWI 1gm 1 GM/10 ML SYR ONE (15:56)
--- NOTE | 2019-01-13 16:08 | EDPHYS ---
Physician Documentation [facility] Name: Renetta Dey Age: 68 yrs Sex: Female : 1950 Arrival Date: 01/13/2019 Time: 11:26 Bed 3 Private MD: ED Physician Kyle Woods HPI: 01/13 15:05 This 68 yrs old Female presents to ER via EMS with complaints of S/S of rn Possible Stroke. 15:05 This 68 yrs old Female presents to ER via EMS with complaints of slurred rn speech, weakness, confusion. 15:05 The patient's problem is reported as a facial droop, weakness. Onset: The rn symptoms/episode began/occurred at an unknown time. Duration: The episode is continuous. Context: symptoms became apparent upon waking. The symptoms are alleviated by nothing. The symptoms are aggravated by nothing. Severity of symptoms: At their worst the symptoms were mild in the emergency department the symptoms have improved. The patient has experienced a previous episode. 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 Was recently admitted and discharged from hospital for acute renal failure and bradycardia, no clear etiology. NO vomiting/diarrhea. Reports good urination. Reports pain to right lower gum. Patient not aware that she is speaking differently and states she feels ok other than generalized weakness. . Historical: - Allergies: 11:55 No Known Allergies; ss - Home Meds: 12:52 Insulin: Humalog Sub-Q 25 unit daily [Active]; levothyroxine 25 mcg tab 1 tab once ph daily [Active]; amlodipine 10 mg tab 1 tab once daily [Active]; Eliquis 5 mg oral tab 1 tab 2 times per day [Active]; gabapentin 600 mg oral tab 1 tab 3 times per day [Active]; Vitamin B-12 Oral [Active]; Folic Acid Oral [Active]; rosuvastatin 20 mg oral tab 1 tab once daily [Active]; Plavix 75 mg Oral tab 1 tab once daily [Active]; melatonin 10 mg Oral tab nightly [Active]; Bystolic 10 mg oral tab 1 tab once daily [Active]; famotidine 20 mg Oral tab as needed [Active]; - PMHx: 11:53 Back pain; CVA; Diabetes - IDDM; Hypertension; ss - PSHx: 11:53 Carotid surgery; CABG; femoral surgery; ss - Immunization history:: Adult Immunizations up to date. - Social history:: Smoking status: . - Ebola Screening: : Patient denies exposure to infectious person Patient denies travel to an Ebola-affected area in the 21 days before illness onset. - Family history:: not pertinent. - Hospitalizations: : Patient was recently seen at [facility]. ROS: 15:05 Constitutional: Negative for fever, chills, and weight loss, Eyes: Negative for injury, rn pain, redness, and discharge, Neck: Negative for injury, pain, and swelling, Cardiovascular: Negative for chest pain, palpitations, and edema, Respiratory: Negative for shortness of breath, cough, wheezing, and pleuritic chest pain, Abdomen/GI: Negative for abdominal pain, nausea, vomiting, diarrhea, and constipation, Back: Negative for injury and pain, MS/Extremity: Negative for injury and deformity, Skin: Negative for injury, rash, and discoloration, Neuro: Negative for headache, numbness, tingling, and seizure. Exam: 15:05 Radiologist reports: No acute findings. rn 15:05 Constitutional: This is a well developed, well nourished patient who is awake, alert, and in no acute distress. Head/Face: Normocephalic, atraumatic. Eyes: Pupils equal round and reactive to light, extra-ocular motions intact. Lids and lashes normal. Conjunctiva and sclera are non-icteric and not injected. Cornea within normal limits. Periorbital areas with no swelling, redness, or edema. ENT: + blister formation on lower gum on right side, no abscess. Neck: Trachea midline, no thyromegaly or masses palpated, and no cervical lymphadenopathy. Supple, full range of motion without nuchal rigidity, or vertebral point tenderness. No Meningismus. Cardiovascular: Regular rate and rhythm with a normal S1 and S2. No gallops, murmurs, or rubs. Normal PMI, no JVD. No pulse deficits. Respiratory: Lungs have equal breath sounds bilaterally, clear to auscultation and percussion. No rales, rhonchi or wheezes noted. No increased work of breathing, no retractions or nasal flaring. Abdomen/GI: Soft, non-tender, with normal bowel sounds. No distension or tympany. No guarding or rebound. No evidence of tenderness throughout. Skin: Warm, dry MS/ Extremity: Pulses equal, no cyanosis. Neurovascular intact. Full, normal range of motion. Equal circumference. Neuro: Awake and alert, GCS 15, oriented to person, place, time, and situation. Cranial nerves II-XII grossly intact. Motor strength 5/5 bilateral upper ext, 3+/5 bilateral lower ext (at baseline since hospitalization). Vital Signs: 11:34 BP 119 / 91; Pulse 66; Resp 17; Temp 97.8(TE); Pulse Ox 100% on R/A; Weight 75.75 kg; dh3 Height 5 ft. 3 in. (160.02 cm); Pain 5/10; 12:36 BP 175 / 51; Pulse 67; Resp 18; Pulse Ox 100% on R/A; ph 12:57 BP 165 / 55; Pulse 68; Resp 16 S; Pulse Ox 97% on R/A; iw 15:47 BP 170 / 66; Pulse 58; Resp 18; Pulse Ox 100% on R/A; ph 16:19 BP 178 / 68; Pulse 57; Resp 18; Temp 98.0; Pulse Ox 99% on R/A; ph 11:34 Body Mass Index 29.58 (75.75 kg, 160.02 cm) dh3 NIH Stroke Scale Scores: 11:23 NIHSS Score: 8 ss 11:24 NIHSS Score: 9 ss MDM: 11:30 Patient medically screened. rn 11:53 ED course: Last known normal last night. + chronic neuropathy, with weakness of both rn legs, unle to get out of bed since recent hospitalization. Today had slurred speech that comes and goes, and seemed slightly confused. . 16:02 Differential diagnosis: CVA, TIA, metabolic disorder, UTI, dehydration. rn 16:03 Data reviewed: vital signs, nurses notes, lab test result(s), EKG, radiologic studies, rn CT scan, MRI, plain films, and as a result, I will discharge patient. Counseling: I had a detailed discussion with the patient and/or guardian regarding: the historical points, exam findings, and any diagnostic results supporting the discharge/admit diagnosis, the presence of at least one elevated blood pressure reading (>120/80) during this emergency department visit, lab results, radiology results, the need for outpatient follow up, to return to the emergency department if symptoms worsen or persist or if there are any questions or concerns that arise at home. Response to treatment: the patient's symptoms have markedly improved after treatment, and as a result, I will discharge patient. Special discussion: I discussed with the patient/guardian in detail that at this point there is no indication for admission to the hospital. It is understood, however, that if the symptoms persist or worsen the patient needs to return immediately for re-evaluation. ED course: MRI stroke protocol no acute stroke or insult, + global plaquing of arteries. Known right carotid disease. Already on blood thinners and cholesterol meds. + UTI. Will dc home with abx and hydration. Return precautions given and understood. . 01/13 11:27 Order name: Basic Metabolic Panel; Complete Time: 12:43 ph 01/13 11:27 Order name: CBC with Diff; Complete Time: 12:43 ph 01/13 11:27 Order name: Protime (+inr); Complete Time: 12:43 ph 01/13 11:27 Order name: Ptt, Activated; Complete Time: 12:43 ph 01/13 11:50 Order name: Urine Microscopic Only; Complete Time: 14:31 rn 01/13 11:52 Order name: Urine Culture rn 01/13 11:27 Order name: CT Stroke Brain w/o Contrast; Complete Time: 12:43 ph 01/13 11:27 Order name: Stroke CXR 1 View; Complete Time: 12:54 ph 01/13 13:20 Order name: Urine Dipstick--Ancillary (enter results); Complete Time: 15:51 01/13 14:01 Order name: MRA Head Wo Cont; Complete Time: 15:51 EDMS 01/13 14:03 Order name: MRA Neck W/Wo Cont; Complete Time: 15:51 EDMS 01/13 14:03 Order name: Brain W/Wo Cont; Complete Time: 15:51 EDNJ 01/13 11:27 Order name: EKG; Complete Time: 11:29 ph 01/13 11:27 Order name: Accucheck; Complete Time: 11:49 ph 01/13 11:27 Order name: Cardiac monitoring; Complete Time: 11:49 ph 01/13 11:27 Order name: EKG - Nurse/Tech; Complete Time: 12:28 ph 01/13 11:27 Order name: IV Saline Lock; Complete Time: 11:49 ph 01/13 11:27 Order name: Labs collected and sent; Complete Time: 49 ph 01/13 11:27 Order name: NPO; Complete Time: :49 ph 01/13 11:27 Order name: O2 Per Protocol; Complete Time: 11:49 ph 01/13 11:27 Order name: O2 Sat Monitoring; Complete Time: :49 ph 01/13 11:27 Order name: Stroke Swallow Screen; Complete Time: 13:23 ph 01/13 11:50 Order name: Urine Dipstick-Ancillary (obtain specimen); Complete Time: 13:23 rn Administered Medications: 12:03 Drug: NS 0.9% 500 ml Route: IV; Rate: bolus; Site: right antecubital; iw 16:08 Follow up: Response: No adverse reaction; IV Status: Completed infusion ph 13:08 Drug: Garfield 5 mg-325 mg 1 tabs {Note: RASS:0.} Route: PO; iw 16:07 Follow up: Response: No adverse reaction ph 13:08 Drug: Potassium Chloride 40 mEq Route: PO; iw 16:08 Follow up: Response: No adverse reaction ph 16:07 Drug: Rocephin 1 grams Route: IV; Rate: calculated rate; Site: right antecubital; ph 16:08 Follow up: Response: No adverse reaction; IV Status: Completed infusion ph Point of Care Testing: Blood Glucose: 11:40 Blood Glucose: 202 mg/dL; ss Ranges: Critical Glucose Levels:Adult <50 mg/dl or >400 mg/dl <40 mg/dl or >180 mg/dl Disposition: 01/13/19 16:06 Discharged to Home. Impression: Urinary tract infection, site not specified, Hypokalemia, Aphthous ulcer of gum. - Condition is Stable. - Discharge Instructions: Urinary Tract Infection, Adult. - Prescriptions for cefpodoxime 100 mg Oral Tablet - take 2 tablet by ORAL route every 12 hours for 10 days take with food; 40 tablet. - Medication Reconciliation Form, Thank You Letter, Antibiotic Education, Prescription Opioid Use form. - Follow up: Private Physician; When: As needed; Reason: Recheck today's complaints, Re-evaluation by your physician. - Problem is new. - Symptoms have improved. NIH Stroke Scale - NIH Stroke Score Date: 01/13/2019 Time: 11:23 Total Score = 8 1a. Level of Consciousness (LOC) - 0(Alert) 1b. Level of Consciousness (LOC) (Year \T\ Age) - 0(Both) 1c. LOC Commands (Open \T\ Closes Eyes/Filling Hand) - 0(Both) 2. Best Gaze (Lateral Gaze Paresis) - 0(Normal) 3. Visual Field Loss - 0(No visual loss) 4. Facial Palsy - 1(Minor Paralysis) 5a. Left Arm: Motor (10-second hold) - 0(No drift) 5b. Right Arm: Motor (10-second hold) - 0(No drift) 6a. Left Leg: Motor (5-second hold - always test supine) - 3(No effort against gravity) 6b. Right Leg: Motor (5-second hold - always test supine) - 3(No effort against gravity) 7. Limb Ataxia (finger/nose \T\ heel/wade - test with eyes open) - 0(Absent) 8. Sensory Loss (pinprick arms/legs/face) - 0(Normal) 9. Best Language: Aphasia (description/naming/reading) - 1(Mild to moderate aphasia) 10. Dysarthria (speech clarity - read or repeat words) - 0(Normal) 11. Extinction and Inattention (visual/tactile/auditory/spatial/personal) - 0(No abnormality) Initials: NIH Stroke Scale - NIH Stroke Score Date: 01/13/2019 Time: 11:24 Total Score = 9 1a. Level of Consciousness (LOC) - 0(Alert) 1b. Level of Consciousness (LOC) (Year \T\ Age) - 0(Both) 1c. LOC Commands (Open \T\ Closes Eyes/Filling Hand) - 0(Both) 2. Best Gaze (Lateral Gaze Paresis) - 0(Normal) 3. Visual Field Loss - 0(No visual loss) 4. Facial Palsy - 1(Minor Paralysis) 5a. Left Arm: Motor (10-second hold) - 0(No drift) 5b. Right Arm: Motor (10-second hold) - 0(No drift) 6a. Left Leg: Motor (5-second hold - always test supine) - 3(No effort against gravity) 6b. Right Leg: Motor (5-second hold - always test supine) - 3(No effort against gravity) 7. Limb Ataxia (finger/nose \T\ heel/wade - test with eyes open) - 0(Absent) 8. Sensory Loss (pinprick arms/legs/face) - 1(Mild to moderate loss) 9. Best Language: Aphasia (description/naming/reading) - 0(No aphasia) 10. Dysarthria (speech clarity - read or repeat words) - 1(Mild to Moderate) 11. Extinction and Inattention (visual/tactile/auditory/spatial/personal) - 0(No abnormality) Initials: ss Signatures: Dispatcher [employer] [facility] Nadira Goss RN RN iw Nieto, Roman, MD MD rn Smirch, Shelby, RN RN ss Hall, Patricia, RN RN ph Corrections: (The following items were deleted from the chart) 14:01 11:53 MR STROKE PROTOCOL+MRI.RAD.BRZ ordered. [facility] 16:03 15:05 Constitutional: This is a well developed, well nourished patient who is rn awake, alert, and in no acute distress. Head/Face: Normocephalic, atraumatic. Eyes: Pupils equal round and reactive to light, extra-ocular motions intact. Lids and lashes normal. Conjunctiva and sclera are non-icteric and not injected. Cornea within normal limits. Periorbital areas with no swelling, redness, or edema. Neck: Trachea midline, no thyromegaly or masses palpated, and no cervical lymphadenopathy. Supple, full range of motion without nuchal rigidity, or vertebral point tenderness. No Meningismus. Cardiovascular: Regular rate and rhythm with a normal S1 and S2. No gallops, murmurs, or rubs. Normal PMI, no JVD. No pulse deficits. Respiratory: Lungs have equal breath sounds bilaterally, clear to auscultation and percussion. No rales, rhonchi or wheezes noted. No increased work of breathing, no retractions or nasal flaring. Abdomen/GI: Soft, non-tender, with normal bowel sounds. No distension or tympany. No guarding or rebound. No evidence of tenderness throughout. Skin: Warm, dry MS/ Extremity: Pulses equal, no cyanosis. Neurovascular intact. Full, normal range of motion. Equal circumference. Neuro: Awake and alert, GCS 15, oriented to person, place, time, and situation. Cranial nerves II-XII grossly intact. Motor strength 5/5 bilateral upper ext, 3+/5 bilateral lower ext (at baseline since hospitalization). rn 16:20 16:06 01/13/2019 16:06 Discharged to Home. Impression: Urinary tract infection, ph site not specified; Hypokalemia; Aphthous ulcer of gum. Condition is Stable. Forms are Medication Reconciliation Form, Thank You Letter, Antibiotic Education, Prescription Opioid Use. Follow up: Private Physician; When: As needed; Reason: Recheck today's complaints, Re-evaluation by your physician. Problem is new. Symptoms have improved. rn 16:37 16:20 01/13/2019 16:06 Discharged to Home. Impression: Urinary tract infection, ph site not specified; Hypokalemia; Aphthous ulcer of gum. Condition is Stable. Discharge Instructions: Urinary Tract Infection, Adult. Forms are Medication Reconciliation Form, Thank You Letter, Antibiotic Education, Prescription Opioid Use. Follow up: Private Physician; When: As needed; Reason: Recheck today's complaints, Re-evaluation by your physician. Problem is new. Symptoms have improved. ph 16:41 16:37 01/13/2019 16:06 Discharged to Home. Impression: Urinary tract infection, ss site not specified; Hypokalemia; Aphthous ulcer of gum. Condition is Stable. Discharge Instructions: Urinary Tract Infection, Adult. Forms are Medication Reconciliation Form, Thank You Letter, Antibiotic Education, Prescription Opioid Use. Follow up: Private Physician; When: As needed; Reason: Recheck today's complaints, Re-evaluation by your physician. Problem is new. Symptoms have improved. ph
--- NOTE | 2019-01-13 16:08 | ER ---
Nurse's Notes [facility] Name: Renetta Dey Age: 68 yrs Sex: Female : 1950 Arrival Date: 01/13/2019 Time: 11:26 Bed 3 Private MD: Diagnosis: Urinary tract infection, site not specified;Hypokalemia;Aphthous ulcer of gum Presentation: 01/13 11:22 Presenting complaint: EMS states: Woke up at 0730 this morning with fatigue, L sided ss chest pain that radiates towards back. Patient didn't realize it, but her family members told her that they noticed her speech was slurred and the R side of her face was drooping. Transition of care: patient was not received from another setting of care. Pre-hospital glucose is not applicable to this patient. Onset of symptoms is unknown. Risk Assessment: Do you want to hurt yourself or someone else? Patient reports no desire to harm self or others. Initial Sepsis Screen: Does the patient meet any 2 criteria? No. Patient's initial sepsis screen is negative. Does the patient have a suspected source of infection? No. Patient's initial sepsis screen is negative. Care prior to arrival: None. 11:22 Method Of Arrival: EMS: [facility] 11:22 Acuity: ELEAZAR 2 ss Stroke Activation: Symtpom onset >3 hours and < 6 hours Physician: Stroke Attending; Name: ; Notified At: ; Arrived At: Physician: Chief Stroke Resident; Name: ; Notified At: ; Arrived At: Physician: Stroke Resident; Name: ; Notified At: ; Arrived At: Physician: ED Attending; Name: ; Notified At: ; Arrived At: Physician: ED Resident; Name: ; Notified At: ; Arrived At: Historical: - Allergies: 11:55 No Known Allergies; ss - Home Meds: 12:52 Insulin: Humalog Sub-Q 25 unit daily [Active]; levothyroxine 25 mcg tab 1 tab once ph daily [Active]; amlodipine 10 mg tab 1 tab once daily [Active]; Eliquis 5 mg oral tab 1 tab 2 times per day [Active]; gabapentin 600 mg oral tab 1 tab 3 times per day [Active]; Vitamin B-12 Oral [Active]; Folic Acid Oral [Active]; rosuvastatin 20 mg oral tab 1 tab once daily [Active]; Plavix 75 mg Oral tab 1 tab once daily [Active]; melatonin 10 mg Oral tab nightly [Active]; Bystolic 10 mg oral tab 1 tab once daily [Active]; famotidine 20 mg Oral tab as needed [Active]; - PMHx: 11:53 Back pain; CVA; Diabetes - IDDM; Hypertension; ss - PSHx: 11:53 Carotid surgery; CABG; femoral surgery; ss - Immunization history:: Adult Immunizations up to date. - Social history:: Smoking status: . - Ebola Screening: : Patient denies exposure to infectious person Patient denies travel to an Ebola-affected area in the 21 days before illness onset. - Family history:: not pertinent. - Hospitalizations: : Patient was recently seen at [facility]. Screenin:55 Abuse screen: Denies threats or abuse. Denies injuries from another. Nutritional ss screening: No deficits noted. Tuberculosis screening: Never had TB. 11:55 Fall Risk No fall in past 12 months (0 pts). Secondary diagnosis (15 points) impaired ss mobility, IV access (20 points). Ambulatory Aid- None/Bed Rest/Nurse Assist (0 pts). Gait- Normal/Bed Rest/Wheelchair (0 pts) Mental Status- Oriented to own ability (0 pts). Assessment: 11:23 VAN Scoring: Arm Drift: Patients demonstrates NO arm weakness. Patient is VAN Negative. ss Visual Disturbance: No visual disturbance noted. Aphasia: No aphasia noted. Neglect: No neglect noted. T-PA (Activase) Screening: Contraindications: Other: Unknown onset. 11:24 Reassessment: CODE STROKE CALLED. ss 11:59 Reassessment: Stroke scale scoring may be higher due to severe neuropathy. Patient ss reports she has been unable to ambulate for months due to her neuropathy from her knees down to her feet. General: Appears comfortable, Behavior is calm, cooperative, Reports fatigue for 0-12 hours, Denies fever, feeling ill, chills. Pain: Complains of pain in anterior aspect of left upper chest, head in entire Pain radiates to back Pain currently is 5 out of 10 on a pain scale. Quality of pain is described as tender, Is continuous. Neuro: Level of Consciousness is awake, alert, obeys commands, Oriented to person, place, time, situation. Neuro: Reports headache tingling, numbness to bilateral lower extremities due to severe neuropathy x months. Denies blurred vision dizziness, difficulty swallowing. Cardiovascular: Capillary refill < 3 seconds is brisk in bilateral fingers. Respiratory: Airway is patent Respiratory effort is even, unlabored, Respiratory pattern is regular, symmetrical. GI: Patient currently denies diarrhea, nausea, vomiting. : No signs and/or symptoms were reported regarding the genitourinary system. EENT: Oral mucosa is moist. Derm: Skin is intact, is healthy with good turgor, Skin is dry, Skin is pink, warm \T\ dry. normal. Musculoskeletal: Swelling absent. 12:00 Patient has been NPO before screening. The patient is alert, and able to follow iw commands. The patient does not exhibit slurred or garbled speech. The patient is not exhibiting difficulty speaking. The patient is exhibiting difficulty understanding words. The patient is able to swallow own secretions with no drooling or need for suction. Patient tolerated one teaspoon of water. No drooling, immediate coughing, gurgling, or clearing of the throat was noted. The patient tolerated 90mL of water. No drooling, immediate coughing, gurgling, or clearing of the throat was noted. The patient passed the bedside swallow screening. Oral medications may be given as ordered. Contact Physician for further diet orders. Provider notified of bedside swallow screening results: Kyle Woods MD. 12:05 Reassessment: Patient appears in no apparent distress at this time. Patient and/or iw family updated on plan of care and expected duration. Pain level reassessed. Patient is alert, oriented x 3, equal unlabored respirations, skin warm/dry/pink. pt requesting pain medication for her headache, ERP notified, warm blankets given. 13:10 Reassessment: pt assisted to bedside commode by PERLITA Montelongo urine specimen obtained, pt iw medicated per JUL, awaiting MRI. 14:15 Reassessment: Patient appears in no apparent distress at this time. Patient and/or ph family updated on plan of care and expected duration. Pain level reassessed. Patient is alert, oriented x 3, equal unlabored respirations, skin warm/dry/pink. 15:15 Reassessment: Patient appears in no apparent distress at this time. Patient and/or ph family updated on plan of care and expected duration. Pain level reassessed. Patient is alert, oriented x 3, equal unlabored respirations, skin warm/dry/pink. Pt taken to restroom via wheelchair. 16:18 Reassessment: Patient appears in no apparent distress at this time. Patient and/or ph family updated on plan of care and expected duration. Pain level reassessed. Patient is alert, oriented x 3, equal unlabored respirations, skin warm/dry/pink. Pt d/c home w/ family. Vital Signs: 11:34 BP 119 / 91; Pulse 66; Resp 17; Temp 97.8(TE); Pulse Ox 100% on R/A; Weight 75.75 kg; dh3 Height 5 ft. 3 in. (160.02 cm); Pain 5/10; 12:36 BP 175 / 51; Pulse 67; Resp 18; Pulse Ox 100% on R/A; ph 12:57 BP 165 / 55; Pulse 68; Resp 16 S; Pulse Ox 97% on R/A; iw 15:47 BP 170 / 66; Pulse 58; Resp 18; Pulse Ox 100% on R/A; ph 16:19 BP 178 / 68; Pulse 57; Resp 18; Temp 98.0; Pulse Ox 99% on R/A; ph 11:34 Body Mass Index 29.58 (75.75 kg, 160.02 cm) dh3 NIH Stroke Scale Scores: 11:23 NIHSS Score: 8 ss 11:24 NIHSS Score: 9 ss ED Course: 11:26 Patient arrived in ED. ph 11:28 Lamar Medina RN is Primary Nurse. ph 11:30 Kyle Woods MD is Attending Physician. rn 11:34 CT Stroke Brain w/o Contrast In Process Unspecified. EDMS 11:34 Inserted saline lock: 22 gauge in right antecubital area, using aseptic technique. ss Blood collected. Patient maintains SpO2 saturation greater than 95% on room air. 11:40 Arm band placed on right wrist. ss 11:51 Triage completed. ss 11:53 EKG done, by mechatronics technician. reviewed by Kyle Woods MD. at1 11:59 Patient has correct armband on for positive identification. Bed in low position. Call ss light in reach. 12:26 Stroke CXR 1 View In Process Unspecified. EDMS 13:50 Patient moved to MRI via stretcher. em2 15:00 MRA Head Wo Cont In Process Unspecified. EDMS 15:00 MRA Neck W/Wo Cont In Process Unspecified. EDMS 15:00 Brain W/Wo Cont In Process Unspecified. EDMS 16:19 No provider procedures requiring assistance completed. IV discontinued, intact, ph bleeding controlled, No redness/swelling at site. Pressure dressing applied. 16:36 Primary Nurse role handed off by Lamar Medina RN rn 16:36 Lamar Medina RN is Primary Nurse. ph 16:39 Primary Nurse role handed off by Lamar Medina RN ss Administered Medications: 12:03 Drug: NS 0.9% 500 ml Route: IV; Rate: bolus; Site: right antecubital; iw 16:08 Follow up: Response: No adverse reaction; IV Status: Completed infusion ph 13:08 Drug: [place] 5 mg-325 mg 1 tabs {Note: RASS:0.} Route: PO; iw 16:07 Follow up: Response: No adverse reaction ph 13:08 Drug: Potassium Chloride 40 mEq Route: PO; iw 16:08 Follow up: Response: No adverse reaction ph 16:07 Drug: Rocephin 1 grams Route: IV; Rate: calculated rate; Site: right antecubital; ph 16:08 Follow up: Response: No adverse reaction; IV Status: Completed infusion ph Point of Care Testing: Blood Glucose: 11:40 Blood Glucose: 202 mg/dL; ss Ranges: Outcome: 16:06 Discharge ordered by MD. rn 16:19 Discharged to home via wheelchair, with family. ph 16:19 Condition: good 16:19 Condition: good 16:19 Discharge instructions given to patient, family, Instructed on discharge instructions, follow up and referral plans. Demonstrated understanding of instructions, follow-up care. 16:20 Patient left the ED. ph NIH Stroke Scale - NIH Stroke Score Date: 01/13/2019 Time: 11:23 Total Score = 8 1a. Level of Consciousness (LOC) - 0(Alert) 1b. Level of Consciousness (LOC) (Year \T\ Age) - 0(Both) 1c. LOC Commands (Open \T\ Closes Eyes/Jewelry Estimator) - 0(Both) 2. Best Gaze (Lateral Gaze Paresis) - 0(Normal) 3. Visual Field Loss - 0(No visual loss) 4. Facial Palsy - 1(Minor Paralysis) 5a. Left Arm: Motor (10-second hold) - 0(No drift) 5b. Right Arm: Motor (10-second hold) - 0(No drift) 6a. Left Leg: Motor (5-second hold - always test supine) - 3(No effort against gravity) 6b. Right Leg: Motor (5-second hold - always test supine) - 3(No effort against gravity) 7. Limb Ataxia (finger/nose \T\ heel/wade - test with eyes open) - 0(Absent) 8. Sensory Loss (pinprick arms/legs/face) - 0(Normal) 9. Best Language: Aphasia (description/naming/reading) - 1(Mild to moderate aphasia) 10. Dysarthria (speech clarity - read or repeat words) - 0(Normal) 11. Extinction and Inattention (visual/tactile/auditory/spatial/personal) - 0(No abnormality) Initials: NIH Stroke Scale - NIH Stroke Score Date: 01/13/2019 Time: 11:24 Total Score = 9 1a. Level of Consciousness (LOC) - 0(Alert) 1b. Level of Consciousness (LOC) (Year \T\ Age) - 0(Both) 1c. LOC Commands (Open \T\ Closes Eyes/Jewelry Estimator) - 0(Both) 2. Best Gaze (Lateral Gaze Paresis) - 0(Normal) 3. Visual Field Loss - 0(No visual loss) 4. Facial Palsy - 1(Minor Paralysis) 5a. Left Arm: Motor (10-second hold) - 0(No drift) 5b. Right Arm: Motor (10-second hold) - 0(No drift) 6a. Left Leg: Motor (5-second hold - always test supine) - 3(No effort against gravity) 6b. Right Leg: Motor (5-second hold - always test supine) - 3(No effort against gravity) 7. Limb Ataxia (finger/nose \T\ heel/wade - test with eyes open) - 0(Absent) 8. Sensory Loss (pinprick arms/legs/face) - 1(Mild to moderate loss) 9. Best Language: Aphasia (description/naming/reading) - 0(No aphasia) 10. Dysarthria (speech clarity - read or repeat words) - 1(Mild to Moderate) 11. Extinction and Inattention (visual/tactile/auditory/spatial/personal) - 0(No abnormality) Initials: ss Signatures: Dispatcher [employer] EDNadira Camara RN RN Kyle Woods MD MD rn Smirch, Shelby, RN RN Mika Rice em2 Lizet North, care team coordinator scheduler EKG Tat1 Lamar Medina RN RN Francisco, Sarahi 3 Corrections: (The following items were deleted from the chart) 11:54 11:34 BP 119 / 91; Pulse 66bpm; Resp 17bpm; Pulse Ox 100% RA; ss dh3 12:02 11:23 T-PA (Activase) Screening: Contraindications: Is the patient on Aspirin, ss Heparin, or Warfarin: Yes. 12:04 11:59 Pain: Complains of pain in anterior aspect of left upper chest, head in ss entire Pain currently is 5 out of 10 on a pain scale. Quality of pain is described as tender, Is continuous, 12:04 11:59 Musculoskeletal: Circulation, motion, and sensation intact. Range of ss motion: intact in all extremities, Swelling absent ss 16:40 16:37 Patient left the ED. [facility] 16:42 16:41 Patient left the ED. ss
--- NOTE | 2019-01-13 16:56 | EKG ---
Test Date: 2019-01-13 Test Time: 11:50:38 Room Cleaner: HECTOR MEASUREMENT RESULTS: Intervals: Rate: 62 IN: 176 QRSD: 80 QT: 428 QTc: 434 [place]: P: -29 IN: 176 QRS: 68 T: 76 INTERPRETIVE STATEMENTS: Normal sinus rhythm with sinus arrhythmia Nonspecific ST abnormality Abnormal ECG Compared to ECG 11/25/2018 20:58:10 ST (T wave) deviation now present First degree AV block no longer present Prolonged QT interval no longer present Electronically Signed On 01-13-19 16:55:12 CDT by Kalpesh Pierson
[2019-01-13 18:54] VITALS: BP 178/68; TEMP 98; O2SAT 99
== END 2019-01-13 16:41 | disposition home or self-care (01) ==
LOC: ER 11:27
DX: N39.0 Urinary tract infection, site not specified (principal); E87.6 Hypokalemia; K06.8 Other specified disorders of gingiva and edentulous alveolar ridge; I10 Essential (primary) hypertension; E11.9 Type 2 diabetes mellitus without complications; Z79.01 Long term (current) use of anticoagulants; Z79.4 Long term (current) use of insulin; Z86.73 Personal history of transient ischemic attack (TIA), and cerebral infarction without residual deficits; Z95.1 Presence of aortocoronary bypass graft
CPT/HCPCS: 96361; 93005; 87088; 85025; 87086; 80048; 36415; 85610; 82962; 85730; 70450; 71045; 70553; 70544; 70549; 96374; 99285; A9577; J0696; 81003; 81015

== ENCOUNTER 2019-03-21 10:51 | Inpatient (IN) | payer OTHER ==
--- OUTSIDE RECORDS SUMMARY | 2019-03-21 11:02 | XMS REPORT | Summary of Care ---
:1950 [address] [facility] Address [address] [place] [id number] Care Team Providers Name Role Phone Pcp, Patient Does Not Have A Primary Care Provider Reason for Visit Reason Comments Follow-up Encounter Details Date Type Department Care Team Description 01/20/2019 Office Visit [facility] Arthur Killian Uncontrolled type 2 diabetes mellitus with hyperglycemia (Primary Dx); Neurology-Suzan White MD Diabetic peripheral neuropathy; [address] [place] [address] Weakness of both lower [address], [address] [facility] [place] [phone] Allergies No Known Allergiesdocumented as of this encounter (statuses as of 01/22/2019) Medications Medication Sig Dispensed Refills Start Date [...] as of this encounter (statuses as of 01/22/2019) Active Problems Problem Noted Date E44.0 Moderate protein calorie malnutrition 12/26/2018 Lower extremity weakness 12/25/2018 Dyslipidemia 08/28/2016 Essential hypertension 08/28/2016 Type 2 diabetes mellitus without complication, with long-term current use 06/2016 of insulin documented as of this encounter (statuses as of 01/22/2019) Resolved Problems Problem Noted Date Resolved Date Type 2 diabetes mellitus without complication, without 04/05/2016 08/28/2016 long-term current use of insulin documented as of this encounter (statuses as of 01/22/2019) Social History Tobacco Use Types Packs/Day Years [...] Sign Reading Time Taken Comments Blood Pressure 120/66 01/20/2019 11:13 AM CDT Pulse 66 01/20/2019 11:13 AM CDT Temperature 37.3 C (99.2 F) 01/20/2019 11:13 AM CDT Respiratory Rate 16 01/20/2019 11:13 AM CDT Oxygen Saturation - - Inhaled Oxygen Concentration - - Weight 72.1 kg (159 lb) 01/20/2019 11:13 AM CDT Height 160 cm (5' 3") 01/20/2019 11:13 AM CDT Body Mass Index 28.17 01/20/2019 11:13 AM CDT documented in this encounter Progress Notes Arthur Killian MD - 01/20/2019 11:20 AM CDT HISTORY OF PRESENT ILLNESS: Renetta Dey is a 68 year old female. Chief complaint: Inability to walk, recent hospitalization. History: I had been concerned about the lack of ability of the patient to use her legs and so she had been admitted to the hospital at [facility]. Imaging study of the brain had been obtained and also of theentire spinal axis which did not show any reason why her legs would not work. I had been concerned about the possibility of CIDP, lumbosacral plexopathy related to diabetes, or a significant diabetic neuropathy. CSF examination could not be completed because of the use of anticoagulation. She did not have any EMG done either. CT angiogram had been recommended, but this has not been completed. The patient did say that she was interested in some intense physical therapy in order to try and improve heroverall status. Radiology: Ct Head Wo Contrast Result Date: 12/27/2018 Impression: No acute intracranial hemorrhage or mass effect. Nonspecific asymmetric hypoattenuation in the left temporal white matter may reflect sequela of infarct with encephalitis thought less likely. Clinically correlate. I, Jagdish Taylor MD., have reviewed this study and agree with the abovereport. Mr Cervical Spine W Wo Contrast Result Date: 12/27/2018 No significant spinal canal stenosis or neural foraminal narrowing is present at any cervical, thoracic or lumbar level. No cord signal abnormality or enhancement is present. Overall mild degenerative changes are present. Minimal spondylolisthesis at L4-L5 and L5-S1 is associated with moderate facet arthropathy at these levels with reactive, inflammatory edema involving the facets, more pronounced onthe left. Nonspecific mild intramuscular edema in the mid and lower paraspinalis muscles. Mr Lumbar Spine W Wo Contrast Result Date: 12/27/2018 No significant spinal canal stenosis or neural foraminal narrowing is present at any cervical, thoracic or lumbar level. No cord signal abnormality or enhancement is present. Overall mild degenerative changes are present. Minimal spondylolisthesis at L4-L5 and L5-S1 is associated with moderate facet arthropathy at these levels with reactive, inflammatory edema involving the facets, more pronounced onthe left. Nonspecific mild intramuscular edema in the mid and lower paraspinalis muscles. Mr Thoracic Spine W Wo Contrast Result Date: 12/27/2018 No significant spinal canal stenosis or neural foraminal narrowing is present at any cervical, thoracic or lumbar level. No cord signal abnormality or enhancement is present. Overall mild degenerative changes are present. Minimal spondylolisthesis at L4-L5 and L5-S1 is associated with moderate facet arthropathy at these levels with reactive, inflammatory edema involving the facets, more pronounced onthe left. Nonspecific mild intramuscular edema in the mid and lower paraspinalis muscles. PMH: has a past medical history of CAD (coronary artery disease) of artery bypass graft (2002), Carotid stenosis, left, DM2 (diabetes mellitus, type 2), and PVD ( peripheral vascular disease). Current Outpatient Medications: amLODIPine 10 mg tablet, [...] 20 mg by mouth., Disp: , Rfl: METFORMIN 1,000 mg tablet, TAKE ONE TABLET BY MOUTH TWICE A DAY WITH FOOD, Disp: 60 tablet, Rfl: 0 Insulin Lisp & Lisp Prot, Hum, (HUMALOG MIX 75-25 KWIKPEN) 100 unit/mL (75-25) injection, inject 28 Units under the skin 2 (two) times daily with meals., Disp: 16.8 mL, Rfl: 3 BD ULTRAFINE III MINI PEN 31 gauge x 3/16" Ndle, USE DAILY WITH BALA, Disp: 100 Each, Rfl: 2 aspirin 325 mg tablet, Take 325 mg by mouth daily., Disp: , Rfl: candesartan-hydrochlorothiazide (ATACAND HCT) 16-12.5 mg per tablet, Take 1 tablet by mouth daily., Disp: , Rfl: CARVEDILOL (COREG ORAL), Take by mouth. Indications: Patient is unsure of dosage, Disp: , Rfl: clopidogrel (PLAVIX) 75 mg tablet, Take 75 mg by mouth daily., Disp: , Rfl: ROSUVASTATIN CALCIUM (CRESTOR ORAL), Take by mouth. Indications: Patrient is unsure of dosage,Disp: , Rfl: zolpidem (AMBIEN) 5 mg tablet, Take 5 mg by mouth at bedtime as needed for Insomnia., Disp: , Rfl: Family History Problem Relation Age of Onset Diabetes Mother Diabetes Father Social History Socioeconomic History Marital status: Spouse [...] Last attempt to quit: 11/2018 Years since quittin.2 Smokeless tobacco: Never Used Tobacco comment: quit november 2018 Substance and Sexual Activity Alcohol use: Not Currently Alcohol/week: 0.0 oz Drug use: Not on file Sexual activity: Never Lifestyle Physical activity: Days per week: Not on file Minutes per session: Not on file Stress: Not on file Relationships Social connections: Talks on phone: Not on file Gets together: Not on file Attends restorationist service: Not on file Active member of [...] file Social History Narrative Not on file Vital signs: BP 120/66 | Pulse 66 | Temp 37.3 C (99.2 F) (Oral) | Resp 16 | Ht 5' 3" (1.6 m) | Wt 159 lb(72.1 kg) | BMI 28.17 kg/m General findings. Temperature: decreased on right from knee down, decreased on left from mid-wade down. PP: length dependent sensory loss Proprioception: absent on both legs Vibration : intact above knee only bilaterally. No tremors present. Upper extremity strength and tone intact. Reflexes were one plus. She is not moving her legs against gravity. 1+ edema without color change both LE. ASSESSMENT AND RECOMMENDATIONS: ICD-10-CM ICD-9-CM 1. Uncontrolled type 2 diabetes mellitus with hyperglycemia E11.65 250.02 2. Diabetic peripheral neuropathy E11.42 250.60 357.2 3. Weakness of both lower extremities R29.898 729.89 Impression: Unfortunately at this point I still do not have a definitive diagnosis. We do need to try and get the CT angiogram done, and also as much EMG as possible. 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 This test would have been useful to help narrow the differential diagnosis. I also did say that I would contact the [facility] rehabilitation unit and see if the patient might be a candidate for inpatient physical therapy. The office visit did last 25 minutes and 13 minutes was spent with the coordination of care, trying to get the CT angiogram arranged as well as the EMG. Apparently there have been communication issues with the schedulers getting a hold of the patient. Creation of the note was aided by utilizing a cut/paste operation of text from a Microsoft Word template created with [employer]. The text was dictated into the template via Dragon Naturally Speaking. documented in this encounter Plan [...] 2 diabetes mellitus with hyperglycemia - Primary Diabetic peripheral neuropathy Type II or unspecified type diabetes mellitus with neurological manifestations , not stated as uncontrolled Weakness of both lower extremities documented in this encounter documented as of this encounter
--- OUTSIDE RECORDS SUMMARY | 2019-03-21 11:02 | XMS REPORT | Summary of Care ---
:1950 Author Organization [facility] Address [address] [place] [id number] Care Team Providers Name Role Phone Pcp, Patient Does Not Have A Primary Care Provider Reason for Referral (Routine) Status Reason Specialty Diagnoses / Referred By Referred To Procedures Contact Contact New Request Patient Occupational Diagnoses Weakness of both lower extremities Perez Killian Therapy Procedures CONSULT/REFERRAL OCCUPATIONAL THERAPY Domingo Quach MD Provider [address] [place] [phone] (Routine) Status Reason Specialty Diagnoses / Referred By Referred To Procedures Contact Contact New Request Referring Physical Diagnoses Weakness of both lower extremities Arthur Killian Provider Therapy Procedures CONSULT/REFERRAL PHYSICAL THERAPY MD Christopher Request [address] [place] [phone] Reason for Visit Reason Comments Follow-up Encounter Details Date Type Department Care Team Description 01/20/2019 Office Visit [facility] Arthur Killian Uncontrolled type 2 diabetes mellitus with hyperglycemia (Primary Dx); Neurology-Suzan White MD Diabetic peripheral neuropathy; [address] [place] [address] [address], [address] [place] [phone] Allergies No Known Allergiesdocumented as of this encounter (statuses as of 01/24/2019) Medications Medication Sig Dispensed Refills Start Date [...] as of this encounter (statuses as of 01/24/2019) Active Problems Problem Noted Date E44.0 Moderate protein calorie malnutrition 12/26/2018 Lower extremity weakness 12/25/2018 Dyslipidemia 08/28/2016 Essential hypertension 08/28/2016 Type 2 diabetes mellitus without complication, with long-term current use 06/2016 of insulin documented as of this encounter (statuses as of 01/24/2019) Resolved Problems Problem Noted Date Resolved Date Type 2 diabetes mellitus without complication, without 04/05/2016 08/28/2016 long-term current use of insulin documented as of this encounter (statuses as of 01/24/2019) Social History Tobacco Use Types Packs/Day Years [...] had been admitted to the hospital at [facility]. Imaging study of the brain had [...] file Gets together: Not on file Attends sikhism service: Not on file Active member of [...] as possible. 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 This test would have been useful to help narrow the differential diagnosis. I also did say that I would contact the [facility] rehabilitation unit and see if the patient [...] from a Microsoft Word template created with [employer]Patient[employer]. The text was dictated into the template [...]
--- OUTSIDE RECORDS SUMMARY | 2019-03-21 11:02 | XMS REPORT ---
:1950 [facility] Jaiden Arguello [address] [place] [id number] Care Team Providers Name Role Phone ALESSANDRO [...] PROTEIN, URINE (BEAKER) (test 66 mg/dL 0-14 jxgo=9108) ALBUMIN URINE ELP (BEAKER) (test 38.9 % htye=6961) GAMMA GLOBULIN URINE (BEAKER) (test 61.1 % ndvt=6425) URINE MARKEL ID-[id number] (BEAKER) (test Non-specific band identified. No kclc=0112) evidence of IGG, IGM, or IGA immunoglobulin with light chain restriction. Clinical correlation is recommended. [id number] (BEAKER) (test Aaron Hopper MD (electronic signature) dxgz=4003) POCT-GLUCOSE [id number] 12:36:00 Test Item Value Reference Range Comments POC-GLUCOSE METER (BEAKER) 178 mg/dL 70-110 TESTED AT [place] [id number] [facility] (test sijz=2802) [place] [address] POCT-GLUCOSE [id number] 08:06:00 Test Item Value Reference Range Comments POC-GLUCOSE METER (BEAKER) 145 mg/dL 70-110 TESTED AT [place] [id number] [facility] (test rbql=8971) [place] [id number] BASIC METABOLIC [id number] 07:28:00 Test Item Value Reference Range Comments SODIUM (BEAKER) (test 140 meq/L 136-145 eais=781) POTASSIUM (BEAKER) (test 3.7 meq/L 3.5-5.1 lqdg=892) CHLORIDE (BEAKER) (test 108 meq/L 98-107 ddkj=936) CO2 (BEAKER) (test 24 meq/L 22-29 atlu=373) BLOOD UREA NITROGEN 31 mg/dL 7-21 (BEAKER) (test juax=867) CREATININE (BEAKER) (test 1.96 mg/dL 0.57-1.25 gngd=866) GLUCOSE RANDOM (BEAKER) 139 mg/dL 70-105 (test vzpx=134) CALCIUM (BEAKER) (test 9.9 mg/dL 8.4-10.2 dlqv=237) EGFR (BEAKER) (test 25 mL/min/1.73 sq m ESTIMATED GFR IS NOT lbva=5474) ACCURATE CREATININE CLEARANCE IN PREDICTING GLOMERULAR FILTRATION RATE. ESTIMATED GFR IS NOT APPLICABLE FOR DIALYSIS PATIENTS. [id number] 07:14:00 Test Item Value Reference Range Comments PHOSPHORUS (BEAKER) (test awoy=980) 3.4 mg/dL 2.3-4.7 [id number] 07:14:00 Test Item Value Reference Range Comments MAGNESIUM (BEAKER) (test qdks=839) 1.8 mg/dL 1.6-2.6 [id number] 06:41:00 Test Item Value Reference Range Comments PARTIAL THROMBOPLASTIN TIME (BEAKER) (test 27.7 seconds 22.5-36.0 duju=535) CBC W/PLT COUNT & AUTO [id number] 06:30:00 Test Item Value Reference Range Comments WHITE BLOOD CELL COUNT (BEAKER) (test vgbz=065) 7.6 K/ L 3.5-10.5 RED BLOOD CELL COUNT (BEAKER) (test vyri=691) 3.08 M/ L 3.93-5.22 HEMOGLOBIN (BEAKER) (test xttl=358) 9.3 GM/DL 11.2-15.7 HEMATOCRIT (BEAKER) (test ywhr=355) 30.2 % 34.1-44.9 MEAN CORPUSCULAR VOLUME (BEAKER) (test hrju=570) 98.1 fL 79.4-94.8 MEAN CORPUSCULAR HEMOGLOBIN (BEAKER) (test 30.2 pg 25.6-32.2 qimq=039) MEAN CORPUSCULAR HEMOGLOBIN CONC (BEAKER) (test 30.8 GM/DL 32.2-35.5 diwd=587) RED CELL DISTRIBUTION WIDTH (BEAKER) (test 14.3 % 11.7-14.4 ezjh=185) PLATELET COUNT (BEAKER) (test xkoq=001) 299 K/CU MM 150-450 MEAN PLATELET VOLUME (BEAKER) (test zeje=425) 9.7 fL 9.4-12.3 NUCLEATED RED BLOOD CELLS (BEAKER) (test 0 /100 WBC 0-0 oazr=337) NEUTROPHILS RELATIVE PERCENT (BEAKER) (test 71 % saow=909) LYMPHOCYTES RELATIVE PERCENT (BEAKER) (test 17 % kdut=335) MONOCYTES RELATIVE PERCENT (BEAKER) (test 8 % wfrk=329) EOSINOPHILS RELATIVE PERCENT (BEAKER) (test 2 % qkal=344) BASOPHILS RELATIVE PERCENT (BEAKER) (test 1 % hnml=519) NEUTROPHILS ABSOLUTE COUNT (BEAKER) (test 5.43 K/ L 1.56-6.13 pjln=102) LYMPHOCYTES ABSOLUTE COUNT (BEAKER) (test 1.27 K/ L 1.18-3.74 eamu=215) MONOCYTES ABSOLUTE COUNT (BEAKER) (test 0.63 K/ L 0.24-0.36 nijd=390) EOSINOPHILS ABSOLUTE COUNT (BEAKER) (test 0.12 K/ L 0.04-0.36 wval=328) BASOPHILS ABSOLUTE COUNT (BEAKER) (test 0.07 K/ L 0.01-0.08 urkc=332) IMMATURE GRANULOCYTES-RELATIVE PERCENT (BEAKER) 1 % 0-1 (test fotx=9254) POCT-GLUCOSE [id number] 21:51:00 Test Item Value Reference Range Comments POC-GLUCOSE METER (BEAKER) 142 mg/dL 70-110 TESTED AT [address] (test zlof=9142) [facility] [address] POCT-GLUCOSE [id number] 18:00:00 Test Item Value Reference Range Comments POC-GLUCOSE METER (BEAKER) 139 mg/dL 70-110 TESTED AT [address] (test hsih=7894) [facility] [address] POCT-GLUCOSE [id number] 13:00:00 Test Item Value Reference Range Comments POC-GLUCOSE METER (BEAKER) 166 mg/dL 70-110 TESTED AT [address] (test xcfy=9279) [facility] [address] POCT-GLUCOSE [id number] 09:00:00 Test Item Value Reference Range Comments POC-GLUCOSE METER (BEAKER) 151 mg/dL 70-110 TESTED AT [facility] [address] [facility] (test jkyf=6248) [facility] [address] COMPREHENSIVE METABOLIC [id number] 06:08:00 Test Item Value Reference Range Comments TOTAL PROTEIN (BEAKER) 6.6 gm/dL 6.0-8.3 (test uqyj=485) ALBUMIN (BEAKER) (test 3.9 g/dL 3.5-5.0 yqqt=4102) ALKALINE PHOSPHATASE 64 U/L 40-150 (BEAKER) (test sprk=306) BILIRUBIN TOTAL (BEAKER) 0.4 mg/dL 0.2-1.2 (test syjf=506) SODIUM (BEAKER) (test 139 meq/L 136-145 nnrf=188) POTASSIUM (BEAKER) (test 3.2 meq/L 3.5-5.1 vbub=364) CHLORIDE (BEAKER) (test 106 meq/L 98-107 ders=591) CO2 (BEAKER) (test 24 meq/L 22-29 ymde=291) BLOOD UREA NITROGEN 34 mg/dL 7-21 (BEAKER) (test daxd=592) CREATININE (BEAKER) (test 2.31 mg/dL 0.57-1.25 cawr=200) GLUCOSE RANDOM (BEAKER) 142 mg/dL 70-105 (test zdle=223) CALCIUM (BEAKER) (test 9.3 mg/dL 8.4-10.2 jyuw=658) AST (SGOT) (BEAKER) (test 25 U/L 5-34 oxrl=687) ALT (SGPT) (BEAKER) (test 29 U/L 6-55 wwne=528) EGFR (BEAKER) (test 21 mL/min/1.73 sq m ESTIMATED GFR IS NOT weif=1748) ACCURATE CREATININE CLEARANCE IN PREDICTING GLOMERULAR FILTRATION RATE. ESTIMATED GFR IS NOT APPLICABLE FOR DIALYSIS PATIENTS. [id number] 06:03:00 Test Item Value Reference Range Comments PHOSPHORUS (BEAKER) (test riyj=001) 3.1 mg/dL 2.3-4.7 [id number] 06:03:00 Test Item Value Reference Range Comments MAGNESIUM (BEAKER) (test fcyo=745) 1.9 mg/dL 1.6-2.6 [id number] 05:01:00 Test Item Value Reference Range Comments PARTIAL THROMBOPLASTIN TIME (BEAKER) (test 82.6 seconds 22.5-36.0 qbwc=574) CALCIUM, [id number] 04:52:00 Test Item Value Reference Range Comments CALCIUM IONIZED (BEAKER) (test zavk=061) 1.17 mmol/L 1.12-1.27 PH, BLOOD (BEAKER) (test ugdz=1661) 7.43 CBC W/PLT COUNT & AUTO [id number] 04:46:00 Test Item Value Reference Range Comments WHITE BLOOD CELL COUNT (BEAKER) (test aiqt=332) 6.1 K/ L 3.5-10.5 RED BLOOD CELL COUNT (BEAKER) (test gwds=170) 2.73 M/ L 3.93-5.22 HEMOGLOBIN (BEAKER) (test bfnj=498) 8.3 GM/DL 11.2-15.7 HEMATOCRIT (BEAKER) (test mqyc=431) 26.7 % 34.1-44.9 MEAN CORPUSCULAR VOLUME (BEAKER) (test lefl=933) 97.8 fL 79.4-94.8 MEAN CORPUSCULAR HEMOGLOBIN (BEAKER) (test 30.4 pg 25.6-32.2 gkkg=709) MEAN CORPUSCULAR HEMOGLOBIN CONC (BEAKER) (test 31.1 GM/DL 32.2-35.5 pvyt=917) RED CELL DISTRIBUTION WIDTH (BEAKER) (test 14.1 % 11.7-14.4 ldch=484) PLATELET COUNT (BEAKER) (test xiet=597) 258 K/CU MM 150-450 MEAN PLATELET VOLUME (BEAKER) (test elfm=869) 9.2 fL 9.4-12.3 NUCLEATED RED BLOOD CELLS (BEAKER) (test 0 /100 WBC 0-0 zavl=436) NEUTROPHILS RELATIVE PERCENT (BEAKER) (test 68 % klgu=907) LYMPHOCYTES RELATIVE PERCENT (BEAKER) (test 20 % ngpq=043) MONOCYTES RELATIVE PERCENT (BEAKER) (test 7 % kxqd=140) EOSINOPHILS RELATIVE PERCENT (BEAKER) (test 2 % vnny=163) BASOPHILS RELATIVE PERCENT (BEAKER) (test 1 % evvy=459) NEUTROPHILS ABSOLUTE COUNT (BEAKER) (test 4.17 K/ L 1.56-6.13 gbxt=910) LYMPHOCYTES ABSOLUTE COUNT (BEAKER) (test 1.23 K/ L 1.18-3.74 rlgt=516) MONOCYTES ABSOLUTE COUNT (BEAKER) (test 0.45 K/ L 0.24-0.36 engd=810) EOSINOPHILS ABSOLUTE COUNT (BEAKER) (test 0.15 K/ L 0.04-0.36 nbvr=357) BASOPHILS ABSOLUTE COUNT (BEAKER) (test 0.07 K/ L 0.01-0.08 ubcm=647) IMMATURE GRANULOCYTES-RELATIVE PERCENT (BEAKER) 1 % 0-1 (test pfan=4489) POCT-GLUCOSE [id number] 21:21:00 Test Item Value Reference Range Comments POC-GLUCOSE METER (BEAKER) 134 mg/dL 70-110 TESTED AT [address] (test txsp=6735) [place] [id number] BASIC METABOLIC [id number] 18:26:00 Test Item Value Reference Range Comments SODIUM (BEAKER) (test 138 meq/L 136-145 wwkv=882) POTASSIUM (BEAKER) (test 3.9 meq/L 3.5-5.1 lzhp=742) CHLORIDE (BEAKER) (test 107 meq/L 98-107 xejr=815) CO2 (BEAKER) (test 23 meq/L 22-29 yrfp=830) BLOOD UREA NITROGEN 37 mg/dL 7-21 (BEAKER) (test qlvn=678) CREATININE (BEAKER) (test 2.42 mg/dL 0.57-1.25 eyum=230) GLUCOSE RANDOM (BEAKER) 135 mg/dL 70-105 (test cnow=719) CALCIUM (BEAKER) (test 9.3 mg/dL 8.4-10.2 djbf=778) EGFR (BEAKER) (test 20 mL/min/1.73 sq m ESTIMATED GFR IS NOT ovzd=9481) ACCURATE CREATININE CLEARANCE IN PREDICTING GLOMERULAR FILTRATION RATE. ESTIMATED GFR IS NOT APPLICABLE FOR DIALYSIS PATIENTS. POCT-GLUCOSE [id number] 18:21:00 Test Item Value Reference Range Comments POC-GLUCOSE METER (BEAKER) 164 mg/dL 70-110 TESTED AT [address] (test txpg=7224) [facility] [address] POCT-GLUCOSE [id number] 11:12:00 Test Item Value Reference Range Comments POC-GLUCOSE METER (BEAKER) 160 mg/dL 70-110 TESTED AT [facility] [address] [facility] (test mxnx=6961) [facility] [address] COMPREHENSIVE METABOLIC [id number] 05:14:00 Test Item Value Reference Range Comments TOTAL PROTEIN (BEAKER) 6.4 gm/dL 6.0-8.3 (test ernv=534) ALBUMIN (BEAKER) (test 3.8 g/dL 3.5-5.0 gezi=0079) ALKALINE PHOSPHATASE 59 U/L 40-150 (BEAKER) (test phoe=632) BILIRUBIN TOTAL (BEAKER) 0.4 mg/dL 0.2-1.2 (test srns=584) SODIUM (BEAKER) (test 139 meq/L 136-145 bvjo=143) POTASSIUM (BEAKER) (test 3.4 meq/L 3.5-5.1 pzxj=050) CHLORIDE (BEAKER) (test 108 meq/L 98-107 wwtt=945) CO2 (BEAKER) (test 23 meq/L 22-29 gmmp=539) BLOOD UREA NITROGEN 34 mg/dL 7-21 (BEAKER) (test ijcg=392) CREATININE (BEAKER) (test 2.49 mg/dL 0.57-1.25 bcax=880) GLUCOSE RANDOM (BEAKER) 144 mg/dL 70-105 (test warf=484) CALCIUM (BEAKER) (test 9.2 mg/dL 8.4-10.2 vihf=144) AST (SGOT) (BEAKER) (test 20 U/L 5-34 czdb=671) ALT (SGPT) (BEAKER) (test 18 U/L 6-55 okqk=455) EGFR (BEAKER) (test 19 mL/min/1.73 sq m ESTIMATED GFR IS NOT cnew=8685) ACCURATE CREATININE CLEARANCE IN PREDICTING GLOMERULAR FILTRATION RATE. ESTIMATED GFR IS NOT APPLICABLE FOR DIALYSIS PATIENTS. [id number] 05:12:00 Test Item Value Reference Range Comments PHOSPHORUS (BEAKER) (test zqkf=202) 2.7 mg/dL 2.3-4.7 [id number] 05:12:00 Test Item Value Reference Range Comments MAGNESIUM (BEAKER) (test zapn=910) 2.0 mg/dL 1.6-2.6 [id number] 05:05:00 Test Item Value Reference Range Comments PARTIAL THROMBOPLASTIN TIME (BEAKER) (test 78.0 seconds 22.5-36.0 lfdy=319) CALCIUM, [id number] 04:53:00 Test Item Value Reference Range Comments CALCIUM IONIZED (BEAKER) (test nuzx=740) 1.18 mmol/L 1.12-1.27 PH, BLOOD (BEAKER) (test hwrz=5598) 7.41 CBC W/PLT COUNT & AUTO [id number] 04:44:00 Test Item Value Reference Range Comments WHITE BLOOD CELL COUNT (BEAKER) (test fsvv=813) 7.5 K/ L 3.5-10.5 RED BLOOD CELL COUNT (BEAKER) (test jaeo=632) 2.89 M/ L 3.93-5.22 HEMOGLOBIN (BEAKER) (test nrfv=236) 8.8 GM/DL 11.2-15.7 HEMATOCRIT (BEAKER) (test ovpt=689) 28.3 % 34.1-44.9 MEAN CORPUSCULAR VOLUME (BEAKER) (test bvvk=026) 97.9 fL 79.4-94.8 MEAN CORPUSCULAR HEMOGLOBIN (BEAKER) (test 30.4 pg 25.6-32.2 azsw=946) MEAN CORPUSCULAR HEMOGLOBIN CONC (BEAKER) (test 31.1 GM/DL 32.2-35.5 thuw=531) RED CELL DISTRIBUTION WIDTH (BEAKER) (test 13.8 % 11.7-14.4 ktzs=236) PLATELET COUNT (BEAKER) (test mlgt=549) 263 K/CU MM 150-450 MEAN PLATELET VOLUME (BEAKER) (test lnhm=558) 9.3 fL 9.4-12.3 NUCLEATED RED BLOOD CELLS (BEAKER) (test 0 /100 WBC 0-0 pcvv=852) NEUTROPHILS RELATIVE PERCENT (BEAKER) (test 73 % ecke=683) LYMPHOCYTES RELATIVE PERCENT (BEAKER) (test 16 % jawr=892) MONOCYTES RELATIVE PERCENT (BEAKER) (test 7 % fjmz=574) EOSINOPHILS RELATIVE PERCENT (BEAKER) (test 2 % vvrd=944) BASOPHILS RELATIVE PERCENT (BEAKER) (test 1 % wnkr=657) NEUTROPHILS ABSOLUTE COUNT (BEAKER) (test 5.44 K/ L 1.56-6.13 yhbi=523) LYMPHOCYTES ABSOLUTE COUNT (BEAKER) (test 1.21 K/ L 1.18-3.74 tklw=742) MONOCYTES ABSOLUTE COUNT (BEAKER) (test 0.54 K/ L 0.24-0.36 vyno=975) EOSINOPHILS ABSOLUTE COUNT (BEAKER) (test 0.17 K/ L 0.04-0.36 tdtp=626) BASOPHILS ABSOLUTE COUNT (BEAKER) (test 0.08 K/ L 0.01-0.08 dzoe=927) IMMATURE GRANULOCYTES-RELATIVE PERCENT (BEAKER) 1 % 0-1 (test nuax=6324) POCT-GLUCOSE [id number] 21:33:00 Test Item Value Reference Range Comments POC-GLUCOSE METER (BEAKER) 138 mg/dL 70-110 TESTED AT [facility] [address] [facility] (test eqyy=0520) [facility] [address] BASIC METABOLIC [id number] 18:05:00 Test Item Value Reference Range Comments SODIUM (BEAKER) (test 136 meq/L 136-145 uzhu=736) POTASSIUM (BEAKER) (test 3.7 meq/L 3.5-5.1 pqbo=234) CHLORIDE (BEAKER) (test 103 meq/L 98-107 izdd=734) CO2 (BEAKER) (test 25 meq/L 22-29 occp=568) BLOOD UREA NITROGEN 36 mg/dL 7-21 (BEAKER) (test hfai=328) CREATININE (BEAKER) (test 2.80 mg/dL 0.57-1.25 leos=313) GLUCOSE RANDOM (BEAKER) 186 mg/dL 70-105 (test gbdz=032) CALCIUM (BEAKER) (test 9.1 mg/dL 8.4-10.2 qgkm=895) EGFR (BEAKER) (test 17 mL/min/1.73 sq m ESTIMATED GFR IS NOT vhnl=0744) ACCURATE CREATININE CLEARANCE IN PREDICTING GLOMERULAR FILTRATION RATE. ESTIMATED GFR IS NOT APPLICABLE FOR DIALYSIS PATIENTS. [id number] 13:04:00 Test Item Value Reference Range Comments PARTIAL THROMBOPLASTIN TIME (BEAKER) (test 71.7 seconds 22.5-36.0 bwav=440) POCT-GLUCOSE [id number] 12:11:00 Test Item Value Reference Range Comments POC-GLUCOSE METER (BEAKER) 158 mg/dL 70-110 TESTED AT [facility] [address] [facility] (test yrtg=4328) [facility] [address] COMPREHENSIVE METABOLIC [id number] 06:52:00 Test Item Value Reference Range Comments TOTAL PROTEIN (BEAKER) 6.5 gm/dL 6.0-8.3 (test ibxo=046) ALBUMIN (BEAKER) (test 3.7 g/dL 3.5-5.0 iqeh=4914) ALKALINE PHOSPHATASE 65 U/L 40-150 (BEAKER) (test tqqu=387) BILIRUBIN TOTAL (BEAKER) 0.4 mg/dL 0.2-1.2 (test dqju=571) SODIUM (BEAKER) (test 139 meq/L 136-145 lqba=223) POTASSIUM (BEAKER) (test 3.0 meq/L 3.5-5.1 wzjx=502) CHLORIDE (BEAKER) (test 104 meq/L 98-107 vgou=018) CO2 (BEAKER) (test 24 meq/L 22-29 tvbs=258) BLOOD UREA NITROGEN 38 mg/dL 7-21 (BEAKER) (test zsvy=966) CREATININE (BEAKER) (test 3.18 mg/dL 0.57-1.25 zufw=377) GLUCOSE RANDOM (BEAKER) 141 mg/dL 70-105 (test byru=140) CALCIUM (BEAKER) (test 9.1 mg/dL 8.4-10.2 zwyj=848) AST (SGOT) (BEAKER) (test 21 U/L 5-34 qeoi=096) ALT (SGPT) (BEAKER) (test 17 U/L 6-55 eyqt=212) EGFR (BEAKER) (test 15 mL/min/1.73 sq m ESTIMATED GFR IS NOT wkgw=9535) ACCURATE CREATININE CLEARANCE IN PREDICTING GLOMERULAR FILTRATION RATE. ESTIMATED GFR IS NOT APPLICABLE FOR DIALYSIS PATIENTS. [id number] 06:47:00 Test Item Value Reference Range Comments PHOSPHORUS (BEAKER) (test cwvp=468) 2.8 mg/dL 2.3-4.7 [id number] 06:47:00 Test Item Value Reference Range Comments MAGNESIUM (BEAKER) (test ycon=059) 1.6 mg/dL 1.6-2.6 CBC W/PLT COUNT & AUTO [id number] 06:42:00 Test Item Value Reference Range Comments WHITE BLOOD CELL COUNT (BEAKER) (test ubky=504) 6.4 K/ L 3.5-10.5 RED BLOOD CELL COUNT (BEAKER) (test hmmo=389) 2.86 M/ L 3.93-5.22 HEMOGLOBIN (BEAKER) (test padf=337) 8.8 GM/DL 11.2-15.7 HEMATOCRIT (BEAKER) (test scyb=719) 27.7 % 34.1-44.9 MEAN CORPUSCULAR VOLUME (BEAKER) (test nfxo=872) 96.9 fL 79.4-94.8 MEAN CORPUSCULAR HEMOGLOBIN (BEAKER) (test 30.8 pg 25.6-32.2 fzqp=953) MEAN CORPUSCULAR HEMOGLOBIN CONC (BEAKER) (test 31.8 GM/DL 32.2-35.5 ijti=153) RED CELL DISTRIBUTION WIDTH (BEAKER) (test 13.9 % 11.7-14.4 abbt=540) PLATELET COUNT (BEAKER) (test xkwj=896) 261 K/CU MM 150-450 MEAN PLATELET VOLUME (BEAKER) (test znjv=721) 9.1 fL 9.4-12.3 NUCLEATED RED BLOOD CELLS (BEAKER) (test 0 /100 WBC 0-0 kuvj=311) NEUTROPHILS RELATIVE PERCENT (BEAKER) (test 73 % lqsy=642) LYMPHOCYTES RELATIVE PERCENT (BEAKER) (test 17 % jeit=847) MONOCYTES RELATIVE PERCENT (BEAKER) (test 7 % fixp=915) EOSINOPHILS RELATIVE PERCENT (BEAKER) (test 2 % kpgg=153) BASOPHILS RELATIVE PERCENT (BEAKER) (test 1 % hxnr=687) NEUTROPHILS ABSOLUTE COUNT (BEAKER) (test 4.66 K/ L 1.56-6.13 xios=214) LYMPHOCYTES ABSOLUTE COUNT (BEAKER) (test 1.07 K/ L 1.18-3.74 eswd=648) MONOCYTES ABSOLUTE COUNT (BEAKER) (test 0.44 K/ L 0.24-0.36 ouib=073) EOSINOPHILS ABSOLUTE COUNT (BEAKER) (test 0.12 K/ L 0.04-0.36 igzx=106) BASOPHILS ABSOLUTE COUNT (BEAKER) (test 0.04 K/ L 0.01-0.08 udyt=991) IMMATURE GRANULOCYTES-RELATIVE PERCENT (BEAKER) 1 % 0-1 (test jjhr=0788) CBC (HEMOGRAM ONLY)2018-12-02 06:42:00 Test Item Value Reference Range Comments WHITE BLOOD CELL COUNT (BEAKER) (test iauz=362) 6.4 K/ L 3.5-10.5 RED BLOOD CELL COUNT (BEAKER) (test mlrx=889) 2.86 M/ L 3.93-5.22 HEMOGLOBIN (BEAKER) (test ljrx=665) 8.8 GM/DL 11.2-15.7 HEMATOCRIT (BEAKER) (test jcrh=749) 27.7 % 34.1-44.9 MEAN CORPUSCULAR VOLUME (BEAKER) (test omwq=832) 96.9 fL 79.4-94.8 MEAN CORPUSCULAR HEMOGLOBIN (BEAKER) (test 30.8 pg 25.6-32.2 imif=719) MEAN CORPUSCULAR HEMOGLOBIN CONC (BEAKER) (test 31.8 GM/DL 32.2-35.5 fttl=660) RED CELL DISTRIBUTION WIDTH (BEAKER) (test 13.9 % 11.7-14.4 ldwv=761) PLATELET COUNT (BEAKER) (test vtst=113) 261 K/CU MM 150-450 MEAN PLATELET VOLUME (BEAKER) (test dcjh=966) 9.1 fL 9.4-12.3 NUCLEATED RED BLOOD CELLS (BEAKER) (test 0 /100 WBC 0-0 ojue=351) [id number] 06:35:00 Test Item Value Reference Range Comments PARTIAL THROMBOPLASTIN TIME (BEAKER) (test 73.5 seconds 22.5-36.0 sxnu=944) CALCIUM, [id number] 06:31:00 Test Item Value Reference Range Comments CALCIUM IONIZED (BEAKER) (test cmyp=165) 1.09 mmol/L 1.12-1.27 PH, BLOOD (BEAKER) (test otxi=2783) 7.43 [id number] 00:08:00 Test Item Value Reference Range Comments PARTIAL THROMBOPLASTIN TIME (BEAKER) (test 90.3 seconds 22.5-36.0 cenl=460) POCT-GLUCOSE [id number] 21:20:00 Test Item Value Reference Range Comments POC-GLUCOSE METER (BEAKER) 138 mg/dL 70-110 TESTED AT [address] (test jbtr=4710) [facility] [address] BASIC METABOLIC [id number] 18:42:00 Test Item Value Reference Range Comments SODIUM (BEAKER) (test 138 meq/L 136-145 qtsc=951) POTASSIUM (BEAKER) (test 3.5 meq/L 3.5-5.1 szos=146) CHLORIDE (BEAKER) (test 102 meq/L 98-107 mvay=633) CO2 (BEAKER) (test 26 meq/L 22-29 nbif=779) BLOOD UREA NITROGEN 38 mg/dL 7-21 (BEAKER) (test ytjp=372) CREATININE (BEAKER) (test 3.64 mg/dL 0.57-1.25 fych=940) GLUCOSE RANDOM (BEAKER) 121 mg/dL 70-105 (test vxoo=197) CALCIUM (BEAKER) (test 9.1 mg/dL 8.4-10.2 hise=592) EGFR (BEAKER) (test 12 mL/min/1.73 sq m ESTIMATED GFR IS NOT klal=9626) ACCURATE CREATININE CLEARANCE IN PREDICTING GLOMERULAR FILTRATION RATE. ESTIMATED GFR IS NOT APPLICABLE FOR DIALYSIS PATIENTS. [id number] 18:26:00 Test Item Value Reference Range Comments PARTIAL THROMBOPLASTIN TIME (BEAKER) (test 80.9 seconds 22.5-36.0 vqxu=294) POCT-GLUCOSE [id number] 17:22:00 Test Item Value Reference Range Comments POC-GLUCOSE METER (BEAKER) 129 mg/dL 70-110 TESTED AT [address] (test lxli=7573) [facility] [address] POCT-GLUCOSE [id number] 12:51:00 Test Item Value Reference Range Comments POC-GLUCOSE METER (BEAKER) 240 mg/dL 70-110 TESTED AT [address] (test bkjq=9128) [facility] [address] [id number] 12:31:00 Test Item Value Reference Range Comments RPR SCREEN (BEAKER) (test dtpz=400) Nonreactive Nonreactive [id number] 12:18:00 Test Item Value Reference Range Comments PARTIAL THROMBOPLASTIN TIME (BEAKER) (test 61.7 seconds 22.5-36.0 fdcx=570) EOSINOPHIL SMEAR, [id number] 10:02:00 Test Item Value Reference Range Comments EOSINOPHIL SMEAR, URINE (BEAKER) Rare EOS=less than 5% WBCs No EOS seen (test anbe=7894) seen are EOS POCT-GLUCOSE [id number] 09:06:00 Test Item Value Reference Range Comments POC-GLUCOSE METER (BEAKER) 137 mg/dL 70-110 TESTED AT [facility] [address] [facility] (test tics=9703) [place] [address] CREATININE, RANDOM [id number] 08:22:00 Test Item Value Reference Range Comments CREATININE URINE (BEAKER) (test ipef=043) 54.1 mg/dL Reference Range: No NormalsPROTEIN, RANDOM [id number] 08:22:00 Test Item Value Reference Range Comments PROTEIN, URINE (BEAKER) (test gpgb=6794) 44 mg/dL 0-14 VITAMIN B12 AND [id number] 08:14:00 Test Item Value Reference Range Comments VITAMIN B12 (BEAKER) (test uaru=325) 455 pg/mL 213-816 FOLATE (BEAKER) (test kbpo=341) 9.9 ng/mL >=7.0 COMPREHENSIVE METABOLIC [id number] 06:59:00 Test Item Value Reference Range Comments TOTAL PROTEIN (BEAKER) 7.0 gm/dL 6.0-8.3 (test vsjs=351) ALBUMIN (BEAKER) (test 4.0 g/dL 3.5-5.0 nlvj=8416) ALKALINE PHOSPHATASE 71 U/L 40-150 (BEAKER) (test opya=013) BILIRUBIN TOTAL (BEAKER) 0.5 mg/dL 0.2-1.2 (test gute=623) SODIUM (BEAKER) (test 141 meq/L 136-145 xbje=952) POTASSIUM (BEAKER) (test 3.3 meq/L 3.5-5.1 mvxq=586) CHLORIDE (BEAKER) (test 103 meq/L 98-107 dknj=683) CO2 (BEAKER) (test 25 meq/L 22-29 loxe=371) BLOOD UREA NITROGEN 33 mg/dL 7-21 (BEAKER) (test djpa=635) CREATININE (BEAKER) (test 4.20 mg/dL 0.57-1.25 vvpi=205) GLUCOSE RANDOM (BEAKER) 135 mg/dL 70-105 (test sdvs=296) CALCIUM (BEAKER) (test 9.3 mg/dL 8.4-10.2 amwd=382) AST (SGOT) (BEAKER) (test 20 U/L 5-34 jlmf=072) ALT (SGPT) (BEAKER) (test 17 U/L 6-55 gebd=250) EGFR (BEAKER) (test 11 mL/min/1.73 sq m ESTIMATED GFR IS NOT zumj=5728) ACCURATE CREATININE CLEARANCE IN PREDICTING GLOMERULAR FILTRATION RATE. ESTIMATED GFR IS NOT APPLICABLE FOR DIALYSIS PATIENTS. [id number] 06:34:00 Test Item Value Reference Range Comments PHOSPHORUS (BEAKER) (test cteq=401) 3.2 mg/dL 2.3-4.7 [id number] 06:34:00 Test Item Value Reference Range Comments MAGNESIUM (BEAKER) (test djrt=735) 1.7 mg/dL 1.6-2.6 URINALYSIS W/ [id number] 04:37:00 Test Item Value Reference Range Comments COLOR (BEAKER) (test qdfw=334) Light Yellow CLARITY (BEAKER) (test bhji=626) Clear SPECIFIC GRAVITY UA (BEAKER) (test jdyc=915) 1.007 1.001-1.035 PH UA (BEAKER) (test jtqu=160) 8.0 5.0-8.0 PROTEIN UA (BEAKER) (test rzgo=502) 50 mg/dL Negative GLUCOSE UA (BEAKER) (test ciyx=761) 150 mg/dL Negative KETONES UA (BEAKER) (test ctrf=700) 10 mg/dL Negative BILIRUBIN UA (BEAKER) (test kmjx=859) Negative Negative BLOOD UA (BEAKER) (test zity=528) Small Negative NITRITE UA (BEAKER) (test xqtn=408) Negative Negative LEUKOCYTE ESTERASE UA (BEAKER) (test vvng=403) Small Negative UROBILINOGEN UA (BEAKER) (test jjdn=130) 0.2 mg/dL 0.2-1.0 RBC UA (BEAKER) (test bjib=281) 5 /HPF WBC UA (BEAKER) (test zsxi=770) 26 /HPF BACTERIA (BEAKER) (test jegc=016) Few SQUAMOUS EPITHELIAL (BEAKER) (test kmzl=966) 2 /HPF HYALINE CASTS (BEAKER) (test nvkt=501) 2 /LPF CRYSTALS, URINE (BEAKER) (test oyfr=9475) None Seen YEAST (BEAKER) (test ikcj=1678) Few SOURCE(BEAKER) (test fzpi=0438) [id number] 04:21:00 Test Item Value Reference Range Comments PARTIAL THROMBOPLASTIN TIME (BEAKER) (test 53.5 seconds 22.5-36.0 xjce=451) CBC W/PLT COUNT & AUTO [id number] 04:09:00 Test Item Value Reference Range Comments WHITE BLOOD CELL COUNT (BEAKER) (test fukp=408) 7.7 K/ L 3.5-10.5 RED BLOOD CELL COUNT (BEAKER) (test vlgl=809) 2.91 M/ L 3.93-5.22 HEMOGLOBIN (BEAKER) (test vacv=109) 9.0 GM/DL 11.2-15.7 HEMATOCRIT (BEAKER) (test rwdz=506) 27.8 % 34.1-44.9 MEAN CORPUSCULAR VOLUME (BEAKER) (test egqy=456) 95.5 fL 79.4-94.8 MEAN CORPUSCULAR HEMOGLOBIN (BEAKER) (test 30.9 pg 25.6-32.2 ogvx=941) MEAN CORPUSCULAR HEMOGLOBIN CONC (BEAKER) (test 32.4 GM/DL 32.2-35.5 gwit=126) RED CELL DISTRIBUTION WIDTH (BEAKER) (test 13.9 % 11.7-14.4 wmol=660) PLATELET COUNT (BEAKER) (test bzsg=751) 275 K/CU MM 150-450 MEAN PLATELET VOLUME (BEAKER) (test xvon=127) 9.1 fL 9.4-12.3 NUCLEATED RED BLOOD CELLS (BEAKER) (test 0 /100 WBC 0-0 sfgq=208) NEUTROPHILS RELATIVE PERCENT (BEAKER) (test 78 % xhpp=921) LYMPHOCYTES RELATIVE PERCENT (BEAKER) (test 12 % yuil=261) MONOCYTES RELATIVE PERCENT (BEAKER) (test 8 % nock=221) EOSINOPHILS RELATIVE PERCENT (BEAKER) (test 1 % clxi=803) BASOPHILS RELATIVE PERCENT (BEAKER) (test 1 % rfir=819) NEUTROPHILS ABSOLUTE COUNT (BEAKER) (test 5.94 K/ L 1.56-6.13 wapr=544) LYMPHOCYTES ABSOLUTE COUNT (BEAKER) (test 0.94 K/ L 1.18-3.74 kmhk=424) MONOCYTES ABSOLUTE COUNT (BEAKER) (test 0.57 K/ L 0.24-0.36 wcot=154) EOSINOPHILS ABSOLUTE COUNT (BEAKER) (test 0.09 K/ L 0.04-0.36 xxzg=359) BASOPHILS ABSOLUTE COUNT (BEAKER) (test 0.07 K/ L 0.01-0.08 niwa=594) IMMATURE GRANULOCYTES-RELATIVE PERCENT (BEAKER) 1 % 0-1 (test mvij=4446) CALCIUM, [id number] 04:08:00 Test Item Value Reference Range Comments CALCIUM IONIZED (BEAKER) (test vasd=831) 1.12 mmol/L 1.12-1.27 PH, BLOOD (BEAKER) (test gyge=5909) 7.44 POCT-GLUCOSE [id number] 21:13:00 Test Item Value Reference Range Comments POC-GLUCOSE METER (BEAKER) 126 mg/dL 70-110 TESTED AT [address] (test eolr=0102) [facility] [address] BASIC METABOLIC [id number] 18:33:00 Test Item Value Reference Range Comments SODIUM (BEAKER) (test 140 meq/L 136-145 tccd=462) POTASSIUM (BEAKER) (test 3.4 meq/L 3.5-5.1 lwzo=659) CHLORIDE (BEAKER) (test 102 meq/L 98-107 mqxt=304) CO2 (BEAKER) (test 26 meq/L 22-29 xofa=507) BLOOD UREA NITROGEN 30 mg/dL 7-21 (BEAKER) (test opog=594) CREATININE (BEAKER) (test 4.50 mg/dL 0.57-1.25 fkrs=437) GLUCOSE RANDOM (BEAKER) 131 mg/dL 70-105 (test prbe=351) CALCIUM (BEAKER) (test 9.1 mg/dL 8.4-10.2 dubj=272) EGFR (BEAKER) (test 10 mL/min/1.73 sq m ESTIMATED GFR IS NOT lgsl=5138) ACCURATE CREATININE CLEARANCE IN PREDICTING GLOMERULAR FILTRATION RATE. ESTIMATED GFR IS NOT APPLICABLE FOR DIALYSIS PATIENTS. POCT-GLUCOSE [id number] 18:12:00 Test Item Value Reference Range Comments POC-GLUCOSE METER (BEAKER) 147 mg/dL 70-110 TESTED AT [address] (test ntpy=8655) [place] [id number] POCT-GLUCOSE [id number] 13:42:00 Test Item Value Reference Range Comments POC-GLUCOSE METER (BEAKER) 136 mg/dL 70-110 TESTED AT [address] (test maug=1087) [place] [id number] POCT-GLUCOSE [id number] 09:22:00 Test Item Value Reference Range Comments POC-GLUCOSE METER (BEAKER) 134 mg/dL 70-110 TESTED AT [address] (test btip=8543) [place] [id number] B-TYPE NATRIURETIC FACTOR (BNP)[id number] 02:02:00 Test Item Value Reference Range Comments B-TYPE NATRIURETIC PEPTIDE (BEAKER) (test 747 pg/mL 0-100 rbno=274) TROPONIN [id number] 01:55:00 Test Item Value Reference Range Comments TROPONIN I (BEAKER) (test zpsh=932) 0.04 ng/mL 0.00-0.03 Troponin I (TnI) levels [...] failure, acidosis, acute neurological disease, and persistent tachyarrhythmia.[id number] 01:55:00 Test Item Value Reference Range Comments PARTIAL THROMBOPLASTIN TIME (BEAKER) (test 73.6 seconds 22.5-36.0 whqe=681) COMPREHENSIVE METABOLIC [id number] 01:49:00 Test Item Value Reference Range Comments TOTAL PROTEIN (BEAKER) 7.1 gm/dL 6.0-8.3 (test nalz=803) ALBUMIN (BEAKER) (test 4.1 g/dL 3.5-5.0 xwba=5049) ALKALINE PHOSPHATASE 71 U/L 40-150 (BEAKER) (test cwkz=205) BILIRUBIN TOTAL (BEAKER) 0.5 mg/dL 0.2-1.2 (test qfhd=273) SODIUM (BEAKER) (test 139 meq/L 136-145 cqpt=339) POTASSIUM (BEAKER) (test 3.3 meq/L 3.5-5.1 qhee=718) CHLORIDE (BEAKER) (test 100 meq/L 98-107 awoh=106) CO2 (BEAKER) (test 26 meq/L 22-29 wmdj=194) BLOOD UREA NITROGEN 27 mg/dL 7-21 (BEAKER) (test dyfa=177) CREATININE (BEAKER) (test 4.91 mg/dL 0.57-1.25 ukqn=836) GLUCOSE RANDOM (BEAKER) 124 mg/dL 70-105 (test kpiq=654) CALCIUM (BEAKER) (test 9.0 mg/dL 8.4-10.2 dkai=206) AST (SGOT) (BEAKER) (test 19 U/L 5-34 euci=478) ALT (SGPT) (BEAKER) (test 15 U/L 6-55 ugrv=823) EGFR (BEAKER) (test 9 mL/min/1.73 sq m ESTIMATED GFR IS NOT eujo=5090) ACCURATE CREATININE CLEARANCE IN PREDICTING GLOMERULAR FILTRATION RATE. ESTIMATED GFR IS NOT APPLICABLE FOR DIALYSIS PATIENTS. [id number] 01:48:00 Test Item Value Reference Range Comments PHOSPHORUS (BEAKER) (test dids=768) 3.5 mg/dL 2.3-4.7 [id number] 01:48:00 Test Item Value Reference Range Comments MAGNESIUM (BEAKER) (test hntd=122) 1.8 mg/dL 1.6-2.6 CALCIUM, [id number] 01:27:00 Test Item Value Reference Range Comments CALCIUM IONIZED (BEAKER) (test elqm=990) 1.07 mmol/L 1.12-1.27 PH, BLOOD (BEAKER) (test cvif=8980) 7.41 CBC W/PLT COUNT & AUTO [id number] 01:25:00 Test Item Value Reference Range Comments WHITE BLOOD CELL COUNT (BEAKER) (test nahx=521) 7.1 K/ L 3.5-10.5 RED BLOOD CELL COUNT (BEAKER) (test iahi=414) 2.78 M/ L 3.93-5.22 HEMOGLOBIN (BEAKER) (test omub=345) 8.7 GM/DL 11.2-15.7 HEMATOCRIT (BEAKER) (test wuxq=744) 26.6 % 34.1-44.9 MEAN CORPUSCULAR VOLUME (BEAKER) (test cdlr=494) 95.7 fL 79.4-94.8 MEAN CORPUSCULAR HEMOGLOBIN (BEAKER) (test 31.3 pg 25.6-32.2 fyki=079) MEAN CORPUSCULAR HEMOGLOBIN CONC (BEAKER) (test 32.7 GM/DL 32.2-35.5 lscc=704) RED CELL DISTRIBUTION WIDTH (BEAKER) (test 13.8 % 11.7-14.4 oorj=973) PLATELET COUNT (BEAKER) (test ohbw=528) 251 K/CU MM 150-450 MEAN PLATELET VOLUME (BEAKER) (test vhnf=973) 8.5 fL 9.4-12.3 NUCLEATED RED BLOOD CELLS (BEAKER) (test 0 /100 WBC 0-0 uthm=599) NEUTROPHILS RELATIVE PERCENT (BEAKER) (test 78 % bbxy=185) LYMPHOCYTES RELATIVE PERCENT (BEAKER) (test 13 % ving=717) MONOCYTES RELATIVE PERCENT (BEAKER) (test 7 % cocq=730) EOSINOPHILS RELATIVE PERCENT (BEAKER) (test 1 % vqus=331) BASOPHILS RELATIVE PERCENT (BEAKER) (test 1 % jklk=020) NEUTROPHILS ABSOLUTE COUNT (BEAKER) (test 5.51 K/ L 1.56-6.13 xmuu=474) LYMPHOCYTES ABSOLUTE COUNT (BEAKER) (test 0.93 K/ L 1.18-3.74 afcq=891) MONOCYTES ABSOLUTE COUNT (BEAKER) (test 0.49 K/ L 0.24-0.36 rvcp=864) EOSINOPHILS ABSOLUTE COUNT (BEAKER) (test 0.04 K/ L 0.04-0.36 hmem=609) BASOPHILS ABSOLUTE COUNT (BEAKER) (test 0.05 K/ L 0.01-0.08 hdgz=042) IMMATURE GRANULOCYTES-RELATIVE PERCENT (BEAKER) 0 % 0-1 (test ozwk=0774) POCT-GLUCOSE [id number] 21:31:00 Test Item Value Reference Range Comments POC-GLUCOSE METER (BEAKER) 125 mg/dL 70-110 TESTED AT [address] (test bhqu=0502) [place] [address] TROPONIN [id number] 18:55:00 Test Item Value Reference Range Comments TROPONIN I (BEAKER) (test uuts=642) 0.05 ng/mL 0.00-0.03 Troponin I (TnI) levels [...] acidosis, acute neurological disease, and persistent tachyarrhythmia.POCT-GLUCOSE [id number] 18:04:00 Test Item Value Reference Range Comments POC-GLUCOSE METER (BEAKER) 140 mg/dL 70-110 TESTED AT [address] (test zfgi=5925) [place] [address] BASIC METABOLIC [id number] 17:31:00 Test Item Value Reference Range Comments SODIUM (BEAKER) (test 138 meq/L 136-145 grmj=328) POTASSIUM (BEAKER) (test 3.5 meq/L 3.5-5.1 bxpz=794) CHLORIDE (BEAKER) (test 100 meq/L 98-107 ifbs=736) CO2 (BEAKER) (test 27 meq/L 22-29 zcha=350) BLOOD UREA NITROGEN 23 mg/dL 7-21 (BEAKER) (test epqp=102) CREATININE (BEAKER) (test 4.74 mg/dL 0.57-1.25 tmmi=306) GLUCOSE RANDOM (BEAKER) 125 mg/dL 70-105 (test ijia=716) CALCIUM (BEAKER) (test 8.8 mg/dL 8.4-10.2 shbf=458) EGFR (BEAKER) (test 9 mL/min/1.73 sq m ESTIMATED GFR IS NOT htzg=2332) ACCURATE CREATININE CLEARANCE IN PREDICTING GLOMERULAR FILTRATION RATE. ESTIMATED GFR IS NOT APPLICABLE FOR DIALYSIS PATIENTS. POCT-GLUCOSE [id number] 13:03:00 Test Item Value Reference Range Comments POC-GLUCOSE METER (BEAKER) 137 mg/dL 70-110 TESTED AT [address] (test czlk=4217) [place] [id number] TROPONIN [id number] 12:03:00 Test Item Value Reference Range Comments TROPONIN I (BEAKER) (test fpcb=829) 0.06 ng/mL 0.00-0.03 Troponin I (TnI) levels [...] failure, acidosis, acute neurological disease, and persistent tachyarrhythmia.[id number] 11:43:00 Test Item Value Reference Range Comments PARTIAL THROMBOPLASTIN TIME (BEAKER) (test 72.3 seconds 22.5-36.0 esnq=691) POCT-GLUCOSE [id number] 08:15:00 Test Item Value Reference Range Comments POC-GLUCOSE METER (BEAKER) 131 mg/dL 70-110 TESTED AT [address] (test sbfc=5025) [place] [address] [id number] 05:18:00 Test Item Value Reference Range Comments PARTIAL THROMBOPLASTIN TIME (BEAKER) (test 74.2 seconds 22.5-36.0 tszo=116) [id number] 03:28:00 Test Item Value Reference Range Comments PARTIAL THROMBOPLASTIN TIME (BEAKER) (test 136.3 seconds 22.5-36.0 wgvp=723) COMPREHENSIVE METABOLIC [id number] 02:40:00 Test Item Value Reference Range Comments TOTAL PROTEIN (BEAKER) 7.2 gm/dL 6.0-8.3 (test wktd=405) ALBUMIN (BEAKER) (test 4.1 g/dL 3.5-5.0 owup=1602) ALKALINE PHOSPHATASE 77 U/L 40-150 (BEAKER) (test play=975) BILIRUBIN TOTAL (BEAKER) 0.6 mg/dL 0.2-1.2 (test xpnx=077) SODIUM (BEAKER) (test 137 meq/L 136-145 iukg=659) POTASSIUM (BEAKER) (test 3.5 meq/L 3.5-5.1 japk=906) CHLORIDE (BEAKER) (test 97 meq/L 98-107 nncv=511) CO2 (BEAKER) (test 26 meq/L 22-29 mzky=921) BLOOD UREA NITROGEN 17 mg/dL 7-21 (BEAKER) (test krcq=189) CREATININE (BEAKER) (test 4.08 mg/dL 0.57-1.25 mtnu=235) GLUCOSE RANDOM (BEAKER) 129 mg/dL 70-105 (test ywtx=927) CALCIUM (BEAKER) (test 9.1 mg/dL 8.4-10.2 jakl=685) AST (SGOT) (BEAKER) (test 22 U/L 5-34 nytu=559) ALT (SGPT) (BEAKER) (test 18 U/L 6-55 zemb=908) EGFR (BEAKER) (test 11 mL/min/1.73 sq m ESTIMATED GFR IS NOT wpht=0680) ACCURATE CREATININE CLEARANCE IN PREDICTING GLOMERULAR FILTRATION RATE. ESTIMATED GFR IS NOT APPLICABLE FOR DIALYSIS PATIENTS. [id number] 02:21:00 Test Item Value Reference Range Comments PHOSPHORUS (BEAKER) (test cemt=630) 3.2 mg/dL 2.3-4.7 [id number] 02:21:00 Test Item Value Reference Range Comments MAGNESIUM (BEAKER) (test dewy=192) 1.8 mg/dL 1.6-2.6 CALCIUM, [id number] 02:03:00 Test Item Value Reference Range Comments CALCIUM IONIZED (BEAKER) (test qeho=760) 1.06 mmol/L 1.12-1.27 PH, BLOOD (BEAKER) (test lrwu=6503) 7.39 CBC W/PLT COUNT & AUTO [id number] 01:57:00 Test Item Value Reference Range Comments WHITE BLOOD CELL COUNT (BEAKER) (test tcat=245) 6.7 K/ L 3.5-10.5 RED BLOOD CELL COUNT (BEAKER) (test fnrf=293) 2.84 M/ L 3.93-5.22 HEMOGLOBIN (BEAKER) (test ffgs=151) 8.7 GM/DL 11.2-15.7 HEMATOCRIT (BEAKER) (test mjhk=216) 26.7 % 34.1-44.9 MEAN CORPUSCULAR VOLUME (BEAKER) (test gfug=325) 94.0 fL 79.4-94.8 MEAN CORPUSCULAR HEMOGLOBIN (BEAKER) (test 30.6 pg 25.6-32.2 cmkr=003) MEAN CORPUSCULAR HEMOGLOBIN CONC (BEAKER) (test 32.6 GM/DL 32.2-35.5 oety=232) RED CELL DISTRIBUTION WIDTH (BEAKER) (test 14.0 % 11.7-14.4 jzrx=849) PLATELET COUNT (BEAKER) (test uzrd=311) 252 K/CU MM 150-450 MEAN PLATELET VOLUME (BEAKER) (test zxwe=609) 8.9 fL 9.4-12.3 NUCLEATED RED BLOOD CELLS (BEAKER) (test 0 /100 WBC 0-0 sudz=536) NEUTROPHILS RELATIVE PERCENT (BEAKER) (test 81 % jyip=310) LYMPHOCYTES RELATIVE PERCENT (BEAKER) (test 11 % qxam=421) MONOCYTES RELATIVE PERCENT (BEAKER) (test 7 % hylz=256) EOSINOPHILS RELATIVE PERCENT (BEAKER) (test 0 % asdr=385) BASOPHILS RELATIVE PERCENT (BEAKER) (test 1 % vlnu=179) NEUTROPHILS ABSOLUTE COUNT (BEAKER) (test 5.39 K/ L 1.56-6.13 fobr=025) LYMPHOCYTES ABSOLUTE COUNT (BEAKER) (test 0.73 K/ L 1.18-3.74 fcpy=441) MONOCYTES ABSOLUTE COUNT (BEAKER) (test 0.43 K/ L 0.24-0.36 gtwz=866) EOSINOPHILS ABSOLUTE COUNT (BEAKER) (test 0.02 K/ L 0.04-0.36 ivhk=414) BASOPHILS ABSOLUTE COUNT (BEAKER) (test 0.06 K/ L 0.01-0.08 nexa=291) IMMATURE GRANULOCYTES-RELATIVE PERCENT (BEAKER) 0 % 0-1 (test rjmc=1357) POCT-GLUCOSE [id number] 21:08:00 Test Item Value Reference Range Comments POC-GLUCOSE METER (BEAKER) 119 mg/dL 70-110 TESTED AT [facility] [address] [facility] (test hrzz=9533) [facility] [address] POCT-GLUCOSE [id number] 20:09:00 Test Item Value Reference Range Comments POC-GLUCOSE METER (BEAKER) 111 mg/dL 70-110 TESTED AT [facility] [address] (test gjdp=9963) [facility] [address] [id number] 19:38:00 Test Item Value Reference Range Comments PARTIAL THROMBOPLASTIN TIME (BEAKER) (test 73.3 seconds 22.5-36.0 scsa=029) BASIC METABOLIC [id number] 16:43:00 Test Item Value Reference Range Comments SODIUM (BEAKER) (test 140 meq/L 136-145 oivc=497) POTASSIUM (BEAKER) (test 3.5 meq/L 3.5-5.1 osvm=181) CHLORIDE (BEAKER) (test 101 meq/L 98-107 emsv=552) CO2 (BEAKER) (test 29 meq/L 22-29 fdlh=756) BLOOD UREA NITROGEN 30 mg/dL 7-21 (BEAKER) (test ifow=495) CREATININE (BEAKER) (test 5.94 mg/dL 0.57-1.25 fpey=011) GLUCOSE RANDOM (BEAKER) 115 mg/dL 70-105 (test zwwr=357) CALCIUM (BEAKER) (test 8.8 mg/dL 8.4-10.2 lxcp=831) EGFR (BEAKER) (test 7 mL/min/1.73 sq m ESTIMATED GFR IS NOT juub=8470) ACCURATE CREATININE CLEARANCE IN PREDICTING GLOMERULAR FILTRATION RATE. ESTIMATED GFR IS NOT APPLICABLE FOR DIALYSIS PATIENTS. URINE [id number] 14:36:00 Test Item Value Reference Range Comments CULTURE (BEAKER) (test KLEBSIELLA PNEUMONIAE >100,000 col/mL nlqu=7983) Klebsiella pneumoniae Amikacin (test code=1) Ampicillin + Sulbactam (test code=6) Aztreonam (test code=32) Cefepime (test code=51) Cefoxitin (test code=68) Ceftazidime (test code=27) Ceftriaxone (test code=52) Ertapenem (test code=38) Gentamicin (test code=18) Levofloxacin (test code=22) Meropenem (test code=34) Nitrofurantoin (test code=23) Piperacillin + Tazobactam (test code=29) Tetracycline (test code=2) Tobramycin (test code=25) Trimethoprim + Sulfamethoxazole (test code=47) POCT-GLUCOSE [id number] 13:17:00 Test Item Value Reference Range Comments POC-GLUCOSE METER (BEAKER) 143 mg/dL 70-110 TESTED AT [facility] [address] [facility] ([place] (test ouhc=0562) [facility] [address] URINE PROTEIN ELECTROPHORESIS, [id number] 10:08:00 Test Item Value Reference Range Comments PROTEIN, URINE (BEAKER) (test 66 mg/dL 0-14 jdox=7560) ALBUMIN URINE ELP (BEAKER) 38.9 % (test pbzl=5845) GAMMA GLOBULIN URINE (BEAKER) 61.1 % (test fhpi=8111) UPEP, ID-438 (BEAKER) (test Indistinct banding in gamma rxul=4452) region. Urine MARKEL ordered for further clarification. [id number] (BEAKER) Cyn Burgos MD (test bioh=3344) (electronic signature) [id number] 09:20:00 Test Item Value Reference Range Comments PARTIAL THROMBOPLASTIN TIME (BEAKER) (test 41.1 seconds 22.5-36.0 yfin=796) Prior to initiating heparinPROTEIN ELECTROPHORESIS, [id number] 08:56:00 Test Item Value Reference Range Comments ALBUMIN FRACTION (BEAKER) 3.2 g/dL 3.5-5.5 (test pvmh=964) ALPHA 1 FRACTION (BEAKER) 0.2 g/dL 0.2-0.4 (test jflp=454) ALPHA 2 FRACTION (BEAKER) 1.0 g/dL 0.5-0.9 (test yvsi=205) BETA FRACTION (BEAKER) (test 0.7 g/dL 0.6-1.1 clzu=908) GAMMA GLOBULIN FRACTION 0.7 g/dL 0.7-1.7 (BEAKER) (test hllx=684) INTERPRETATION-119 (BEAKER) Pattern suggestive of acute (test njyz=3981) inflammation. No monoclonal bands detected. [id number] (BEAKER) Cyn Burgos MD (test rkuv=1988) (electronic signature) PROTEIN TOTAL SERUM, SPEP 5.9 gm/dL 6.0-8.3 (BEAKER) (test eqkq=4474) POCT-GLUCOSE [id number] 08:36:00 Test Item Value Reference Range Comments POC-GLUCOSE METER (BEAKER) 144 mg/dL 70-110 TESTED AT [facility] [address] (test qnwz=1360) [facility] [address] COMPREHENSIVE METABOLIC [id number] 05:48:00 Test Item Value Reference Range Comments TOTAL PROTEIN (BEAKER) 6.9 gm/dL 6.0-8.3 (test qazs=481) ALBUMIN (BEAKER) (test 4.0 g/dL 3.5-5.0 dvfj=7599) ALKALINE PHOSPHATASE 78 U/L 40-150 (BEAKER) (test tauj=850) BILIRUBIN TOTAL (BEAKER) 0.6 mg/dL 0.2-1.2 (test woph=638) SODIUM (BEAKER) (test 139 meq/L 136-145 mhni=409) POTASSIUM (BEAKER) (test 3.3 meq/L 3.5-5.1 yrga=813) CHLORIDE (BEAKER) (test 101 meq/L 98-107 bxlf=497) CO2 (BEAKER) (test 25 meq/L 22-29 rfwl=505) BLOOD UREA NITROGEN 37 mg/dL 7-21 (BEAKER) (test cryv=982) CREATININE (BEAKER) (test 7.42 mg/dL 0.57-1.25 ioxi=656) GLUCOSE RANDOM (BEAKER) 134 mg/dL 70-105 (test mbsf=331) CALCIUM (BEAKER) (test 9.0 mg/dL 8.4-10.2 ncwn=490) AST (SGOT) (BEAKER) (test 25 U/L 5-34 cmun=982) ALT (SGPT) (BEAKER) (test 19 U/L 6-55 ykis=144) EGFR (BEAKER) (test 5 mL/min/1.73 sq m ESTIMATED GFR IS NOT wdqd=4560) ACCURATE CREATININE CLEARANCE IN PREDICTING GLOMERULAR FILTRATION RATE. ESTIMATED GFR IS NOT APPLICABLE FOR DIALYSIS PATIENTS. [id number] 05:01:00 Test Item Value Reference Range Comments PHOSPHORUS (BEAKER) (test xaaw=644) 4.9 mg/dL 2.3-4.7 [id number] 05:01:00 Test Item Value Reference Range Comments MAGNESIUM (BEAKER) (test nwlf=809) 1.9 mg/dL 1.6-2.6 CBC W/PLT COUNT & AUTO [id number] 04:32:00 Test Item Value Reference Range Comments WHITE BLOOD CELL COUNT (BEAKER) (test tkwu=945) 6.2 K/ L 3.5-10.5 RED BLOOD CELL COUNT (BEAKER) (test lxak=068) 2.94 M/ L 3.93-5.22 HEMOGLOBIN (BEAKER) (test stye=855) 9.0 GM/DL 11.2-15.7 HEMATOCRIT (BEAKER) (test jxaz=201) 27.5 % 34.1-44.9 MEAN CORPUSCULAR VOLUME (BEAKER) (test dacb=391) 93.5 fL 79.4-94.8 MEAN CORPUSCULAR HEMOGLOBIN (BEAKER) (test 30.6 pg 25.6-32.2 cslb=392) MEAN CORPUSCULAR HEMOGLOBIN CONC (BEAKER) (test 32.7 GM/DL 32.2-35.5 zrlj=079) RED CELL DISTRIBUTION WIDTH (BEAKER) (test 13.9 % 11.7-14.4 efdk=802) PLATELET COUNT (BEAKER) (test hvde=298) 244 K/CU MM 150-450 MEAN PLATELET VOLUME (BEAKER) (test yhex=665) 9.4 fL 9.4-12.3 NUCLEATED RED BLOOD CELLS (BEAKER) (test 0 /100 WBC 0-0 qemq=396) NEUTROPHILS RELATIVE PERCENT (BEAKER) (test 77 % kwpz=765) LYMPHOCYTES RELATIVE PERCENT (BEAKER) (test 13 % cicz=147) MONOCYTES RELATIVE PERCENT (BEAKER) (test 8 % tuct=293) EOSINOPHILS RELATIVE PERCENT (BEAKER) (test 1 % gigb=445) BASOPHILS RELATIVE PERCENT (BEAKER) (test 1 % wljr=775) NEUTROPHILS ABSOLUTE COUNT (BEAKER) (test 4.79 K/ L 1.56-6.13 rlzy=537) LYMPHOCYTES ABSOLUTE COUNT (BEAKER) (test 0.80 K/ L 1.18-3.74 oepe=368) MONOCYTES ABSOLUTE COUNT (BEAKER) (test 0.51 K/ L 0.24-0.36 oxwg=913) EOSINOPHILS ABSOLUTE COUNT (BEAKER) (test 0.04 K/ L 0.04-0.36 xuve=384) BASOPHILS ABSOLUTE COUNT (BEAKER) (test 0.05 K/ L 0.01-0.08 ievn=634) IMMATURE GRANULOCYTES-RELATIVE PERCENT (BEAKER) 0 % 0-1 (test urxu=8058) CALCIUM, [id number] 04:19:00 Test Item Value Reference Range Comments CALCIUM IONIZED (BEAKER) (test icvv=353) 1.06 mmol/L 1.12-1.27 PH, BLOOD (BEAKER) (test clei=9014) 7.37 POCT-GLUCOSE [id number] 22:00:00 Test Item Value Reference Range Comments POC-GLUCOSE METER (BEAKER) 116 mg/dL 70-110 TESTED AT [address] (test qmol=5322) [place] [address] POCT-GLUCOSE [id number] 17:59:00 Test Item Value Reference Range Comments POC-GLUCOSE METER (BEAKER) 130 mg/dL 70-110 TESTED AT [address] (test zfbu=7978) [place] [id number] BASIC METABOLIC [id number] 17:01:00 Test Item Value Reference Range Comments SODIUM (BEAKER) (test 139 meq/L 136-145 orzx=738) POTASSIUM (BEAKER) (test 3.5 meq/L 3.5-5.1 zfcv=537) CHLORIDE (BEAKER) (test 97 meq/L 98-107 flol=525) CO2 (BEAKER) (test 29 meq/L 22-29 srcj=798) BLOOD UREA NITROGEN 68 mg/dL 7-21 (BEAKER) (test mxvk=805) CREATININE (BEAKER) (test 11.26 mg/dL 0.57-1.25 jles=734) GLUCOSE RANDOM (BEAKER) 113 mg/dL 70-105 (test tsqb=980) CALCIUM (BEAKER) (test 8.2 mg/dL 8.4-10.2 azho=187) EGFR (BEAKER) (test 3 mL/min/1.73 sq m ESTIMATED GFR IS NOT qbae=6716) ACCURATE CREATININE CLEARANCE IN PREDICTING GLOMERULAR FILTRATION RATE. ESTIMATED GFR IS NOT APPLICABLE FOR DIALYSIS PATIENTS. RHEUMATOID FACTOR AB, REFLEX TO [id number] 14:07:00 Test Item Value Reference Range Comments RHEUMATOID FACTOR (BEAKER) (test xrsb=384) Negative POCT-GLUCOSE [id number] 12:15:00 Test Item Value Reference Range Comments POC-GLUCOSE METER (BEAKER) 152 mg/dL 70-110 TESTED AT [facility] [address] (test tcvk=7566) [facility] [id number] ANTI-NUCLEAR ANTIBODY (JUAN)2018-11-27 10:16:00 Test Item Value Reference Range Comments ANTI-NUCLEAR ANTIBODY (JUAN) (BEAKER) (test Negative Negative tbcg=247) Test performed by IFA method.Test performed by IFA method.T4, [id number] 06: 28:00 Test Item Value Reference Range Comments FREE T4 (BEAKER) (test nljw=826) 0.57 ng/dL 0.70-1.48 [id number] 05:43:00 Test Item Value Reference Range Comments FERRITIN (BEAKER) (test kydc=197) 264 ng/mL 5-275 TSH/FREE T4 IF [id number] 05:30:00 Test Item Value Reference Range Comments THYROID STIMULATING HORMONE (BEAKER) (test 8.31 uIU/mL 0.35-4.94 chqk=364) HEPATITIS PANEL, [id number] 05:26:00 Test Item Value Reference Range Comments HEPATITIS A IGM ANTIBODY (BEAKER) (test Nonreactive Nonreactive usfj=174) HEPATITIS B CORE IGM ANTIBODY (BEAKER) (test Nonreactive Nonreactive umji=829) HEPATITIS C ANTIBODY (BEAKER) (test xphr=962) Nonreactive Nonreactive HEPATITIS B SURFACE ANTIGEN (2) (BEAKER) (test Nonreactive Nonreactive ymmi=4429) COMPREHENSIVE METABOLIC [id number] 05:13:00 Test Item Value Reference Range Comments TOTAL PROTEIN (BEAKER) 6.3 gm/dL 6.0-8.3 (test cyrl=009) ALBUMIN (BEAKER) (test 3.7 g/dL 3.5-5.0 mhtd=8549) ALKALINE PHOSPHATASE 77 U/L 40-150 (BEAKER) (test qsyu=377) BILIRUBIN TOTAL (BEAKER) 0.5 mg/dL 0.2-1.2 (test tlal=388) SODIUM (BEAKER) (test 140 meq/L 136-145 eybq=380) POTASSIUM (BEAKER) (test 3.6 meq/L 3.5-5.1 ekhx=668) CHLORIDE (BEAKER) (test 98 meq/L 98-107 frfx=380) CO2 (BEAKER) (test 25 meq/L 22-29 ipaz=298) BLOOD UREA NITROGEN 67 mg/dL 7-21 (BEAKER) (test kede=627) CREATININE (BEAKER) (test 11.11 mg/dL 0.57-1.25 afny=645) GLUCOSE RANDOM (BEAKER) 101 mg/dL 70-105 (test umem=157) CALCIUM (BEAKER) (test 8.2 mg/dL 8.4-10.2 xgfh=655) AST (SGOT) (BEAKER) (test 27 U/L 5-34 zhwi=888) ALT (SGPT) (BEAKER) (test 20 U/L 6-55 ccug=956) EGFR (BEAKER) (test 3 mL/min/1.73 sq m ESTIMATED GFR IS NOT kljp=8624) ACCURATE CREATININE CLEARANCE IN PREDICTING GLOMERULAR FILTRATION RATE. ESTIMATED GFR IS NOT APPLICABLE FOR DIALYSIS PATIENTS. COMPLEMENT COMPONENT [id number] 05:10:00 Test Item Value Reference Range Comments C4 COMPLEMENT (BEAKER) (test wevx=778) 43 mg/dL 15-57 COMPLEMENT COMPONENT [id number] 05:10:00 Test Item Value Reference Range Comments C3 COMPLEMENT (BEAKER) (test trau=145) 96 mg/dL 82-193 IRON, TIBC, % SAT. (WITHOUT FERRITIN)2018-11-27 05:10:00 Test Item Value Reference Range Comments IRON (BEAKER) (test rqso=357) 23.0 ug/dL 40.0-160.0 TOTAL IRON BINDING CAPACITY (BEAKER) (test 274 ug/dL 250-450 dzhg=906) IRON % SATURATION (2) (BEAKER) (test xzvi=5909) 8 % 20-55 B-TYPE NATRIURETIC FACTOR (BNP)2018-11-27 05:02:00 Test Item Value Reference Range Comments B-TYPE NATRIURETIC PEPTIDE (BEAKER) (test 1874 pg/mL 0-100 ppmc=114) URIC [id number] 05:02:00 Test Item Value Reference Range Comments URIC ACID (BEAKER) (test tnol=575) 6.2 mg/dL 2.6-7.2 [id number] 05:02:00 Test Item Value Reference Range Comments MAGNESIUM (BEAKER) (test axrz=658) 2.1 mg/dL 1.6-2.6 [id number] 05:02:00 Test Item Value Reference Range Comments PHOSPHORUS (BEAKER) (test chuc=474) 8.7 mg/dL 2.3-4.7 CREATINE KINASE (CK)2018-11-27 05:02:00 Test Item Value Reference Range Comments CREATINE KINASE TOTAL (BEAKER) (test hxqy=357) 546 U/L 29-200 RETICULOCYTE [id number] 04:40:00 Test Item Value Reference Range Comments RETICULOCYTE COUNT PCT (BEAKER) (test krnx=297) 0.9 % 0.5-1.7 CBC W/PLT COUNT & AUTO [id number] 04:40:00 Test Item Value Reference Range Comments WHITE BLOOD CELL COUNT (BEAKER) (test mwsm=111) 6.0 K/ L 3.5-10.5 RED BLOOD CELL COUNT (BEAKER) (test yrgd=799) 3.13 M/ L 3.93-5.22 HEMOGLOBIN (BEAKER) (test bafk=370) 9.6 GM/DL 11.2-15.7 HEMATOCRIT (BEAKER) (test ygvu=481) 28.5 % 34.1-44.9 MEAN CORPUSCULAR VOLUME (BEAKER) (test rmoj=536) 91.1 fL 79.4-94.8 MEAN CORPUSCULAR HEMOGLOBIN (BEAKER) (test 30.7 pg 25.6-32.2 fhov=592) MEAN CORPUSCULAR HEMOGLOBIN CONC (BEAKER) (test 33.7 GM/DL 32.2-35.5 ouir=725) RED CELL DISTRIBUTION WIDTH (BEAKER) (test 14.2 % 11.7-14.4 yedo=996) PLATELET COUNT (BEAKER) (test yswz=740) 235 K/CU MM 150-450 MEAN PLATELET VOLUME (BEAKER) (test daro=573) 9.1 fL 9.4-12.3 NUCLEATED RED BLOOD CELLS (BEAKER) (test 0 /100 WBC 0-0 vpht=197) NEUTROPHILS RELATIVE PERCENT (BEAKER) (test 76 % pzof=825) LYMPHOCYTES RELATIVE PERCENT (BEAKER) (test 13 % akur=496) MONOCYTES RELATIVE PERCENT (BEAKER) (test 9 % ansf=816) EOSINOPHILS RELATIVE PERCENT (BEAKER) (test 1 % actt=716) BASOPHILS RELATIVE PERCENT (BEAKER) (test 1 % gejl=838) NEUTROPHILS ABSOLUTE COUNT (BEAKER) (test 4.57 K/ L 1.56-6.13 arij=924) LYMPHOCYTES ABSOLUTE COUNT (BEAKER) (test 0.81 K/ L 1.18-3.74 tomm=311) MONOCYTES ABSOLUTE COUNT (BEAKER) (test 0.53 K/ L 0.24-0.36 xyth=457) EOSINOPHILS ABSOLUTE COUNT (BEAKER) (test 0.04 K/ L 0.04-0.36 xxve=834) BASOPHILS ABSOLUTE COUNT (BEAKER) (test 0.05 K/ L 0.01-0.08 vjjn=348) IMMATURE GRANULOCYTES-RELATIVE PERCENT (BEAKER) 1 % 0-1 (test vwfx=3264) CALCIUM, [id number] 04:33:00 Test Item Value Reference Range Comments CALCIUM IONIZED (BEAKER) (test sppi=052) 1.00 mmol/L 1.12-1.27 PH, BLOOD (BEAKER) (test dnmr=5411) 7.36 POCT-GLUCOSE [id number] 04:20:00 Test Item Value Reference Range Comments POC-GLUCOSE METER (BEAKER) 110 mg/dL 70-110 TESTED AT [facility] [address] [facility] (test rmes=6143) [facility] [address] BASIC METABOLIC [id number] 20:54:00 Test Item Value Reference Range Comments SODIUM (BEAKER) (test 139 meq/L 136-145 iwey=919) POTASSIUM (BEAKER) (test 3.5 meq/L 3.5-5.1 djtw=854) CHLORIDE (BEAKER) (test 98 meq/L 98-107 ikkk=817) CO2 (BEAKER) (test 25 meq/L 22-29 egis=467) BLOOD UREA NITROGEN 68 mg/dL 7-21 (BEAKER) (test ihot=179) CREATININE (BEAKER) (test 10.51 mg/dL 0.57-1.25 alpk=575) GLUCOSE RANDOM (BEAKER) 103 mg/dL 70-105 (test ycdr=463) CALCIUM (BEAKER) (test 8.1 mg/dL 8.4-10.2 sahz=176) EGFR (BEAKER) (test 4 mL/min/1.73 sq m ESTIMATED GFR IS NOT jqzt=4540) ACCURATE CREATININE CLEARANCE IN PREDICTING GLOMERULAR FILTRATION RATE. ESTIMATED GFR IS NOT APPLICABLE FOR DIALYSIS PATIENTS. POCT-GLUCOSE [id number] 18:14:00 Test Item Value Reference Range Comments POC-GLUCOSE METER (BEAKER) 109 mg/dL 70-110 TESTED AT [facility] [address] (test ljwe=8371) [facility] [address] EOSINOPHIL SMEAR, [id number] 16:26:00 Test Item Value Reference Range Comments EOSINOPHIL SMEAR, URINE (BEAKER) Positive=greater than 5% No EOS seen (test olwz=9480) WBCs are EOS CREATININE, RANDOM [id number] 15:55:00 Test Item Value Reference Range Comments CREATININE URINE (BEAKER) (test pwro=659) 43.0 mg/dL Reference Range: No NormalsPROTEIN, RANDOM [id number] 15:55:00 Test Item Value Reference Range Comments PROTEIN, URINE (BEAKER) (test ixtj=1978) 66 mg/dL 0-14 SODIUM, RANDOM [id number] 15:55:00 Test Item Value Reference Range Comments SODIUM URINE (BEAKER) (test fdez=543) 89 meq/L Reference Range: No NormalsURINALYSIS W/ [id number] 15:52:00 Test Item Value Reference Range Comments COLOR (BEAKER) (test cgiv=090) Light Yellow CLARITY (BEAKER) (test wogj=684) Clear SPECIFIC GRAVITY UA (BEAKER) (test brdy=058) 1.006 1.001-1.035 PH UA (BEAKER) (test rdzl=956) 5.5 5.0-8.0 PROTEIN UA (BEAKER) (test wlmt=531) 70 mg/dL Negative GLUCOSE UA (BEAKER) (test tpjt=394) Negative Negative KETONES UA (BEAKER) (test dyej=355) Negative Negative BILIRUBIN UA (BEAKER) (test lspt=009) Negative Negative BLOOD UA (BEAKER) (test lsrn=443) Moderate Negative NITRITE UA (BEAKER) (test kzdt=743) Negative Negative LEUKOCYTE ESTERASE UA (BEAKER) (test tifj=279) Moderate Negative UROBILINOGEN UA (BEAKER) (test mzao=280) 0.2 mg/dL 0.2-1.0 RBC UA (BEAKER) (test moeo=829) 6 /HPF WBC UA (BEAKER) (test afuf=722) 29 /HPF SOURCE(BEAKER) (test faee=4259) U/S, RENAL, [id number] 15:05:00Reason for exam:->renal failureFINAL REPORT TECHNIQUE: Grayscale [...] MDReport Verified Date/Time: 11/26/2018 15:05:19 Reading Location: [address] Radiology Reading Room BASIC METABOLIC [id number] 11:50:00 Test Item Value Reference Range Comments SODIUM (BEAKER) (test 139 meq/L 136-145 veiy=873) POTASSIUM (BEAKER) (test 4.0 meq/L 3.5-5.1 mtkr=863) CHLORIDE (BEAKER) (test 95 meq/L 98-107 yfiv=389) CO2 (BEAKER) (test 22 meq/L 22-29 hhdl=691) BLOOD UREA NITROGEN 113 mg/dL 7-21 (BEAKER) (test ayko=857) CREATININE (BEAKER) (test 15.15 mg/dL 0.57-1.25 valn=236) GLUCOSE RANDOM (BEAKER) 91 mg/dL 70-105 (test lpuu=102) CALCIUM (BEAKER) (test 8.0 mg/dL 8.4-10.2 sebk=685) EGFR (BEAKER) (test 2 mL/min/1.73 sq m ESTIMATED GFR IS NOT mraw=0760) ACCURATE CREATININE CLEARANCE IN PREDICTING GLOMERULAR FILTRATION RATE. ESTIMATED GFR IS NOT APPLICABLE FOR DIALYSIS PATIENTS. HEMOGLOBIN [id number] 11:39:00 Test Item Value Reference Range Comments HEMOGLOBIN A1C (BEAKER) (test glno=700) 7.2 % 4.3-6.1 POCT-GLUCOSE [id number] 11:34:00 Test Item Value Reference Range Comments POC-GLUCOSE METER (BEAKER) 96 mg/dL 70-110 TESTED AT [facility] [address] [facility] (test ctkj=6971) [facility] [address] CREATININE, RANDOM [id number] 08:00:00 Test Item Value Reference Range Comments CREATININE URINE (BEAKER) (test ahme=679) 55.9 mg/dL Reference Range: No NormalsSODIUM, RANDOM [id number] 08:00:00 Test Item Value Reference Range Comments SODIUM URINE (BEAKER) (test nhpq=116) 69 meq/L Reference Range: No NormalsUREA NITROGEN, RANDOM [id number] 08:00:00 Test Item Value Reference Range Comments UREA NITROGEN URINE (BEAKER) (test ucln=200) 207 mg/dL Reference Range: No NormalsBASIC METABOLIC [id number] 07:16:00 Test Item Value Reference Range Comments SODIUM (BEAKER) (test 133 meq/L 136-145 plib=565) POTASSIUM (BEAKER) (test 4.3 meq/L 3.5-5.1 aoey=358) CHLORIDE (BEAKER) (test 95 meq/L 98-107 yyry=455) CO2 (BEAKER) (test 15 meq/L 22-29 fyar=696) BLOOD UREA NITROGEN 114 mg/dL 7-21 (BEAKER) (test ndgk=544) CREATININE (BEAKER) (test 14.93 mg/dL 0.57-1.25 maeo=401) GLUCOSE RANDOM (BEAKER) 77 mg/dL 70-105 (test tpiu=592) CALCIUM (BEAKER) (test 8.2 mg/dL 8.4-10.2 pxbd=516) EGFR (BEAKER) (test 2 mL/min/1.73 sq m ESTIMATED GFR IS NOT wrqw=0079) ACCURATE CREATININE CLEARANCE IN PREDICTING GLOMERULAR FILTRATION RATE. ESTIMATED GFR IS NOT APPLICABLE FOR DIALYSIS PATIENTS. HEPATITIS PANEL, [id number] 07:11:00 Test Item Value Reference Range Comments HEPATITIS A IGM ANTIBODY (BEAKER) (test Nonreactive Nonreactive nojb=286) HEPATITIS B CORE IGM ANTIBODY (BEAKER) (test Nonreactive Nonreactive kcsd=694) HEPATITIS C ANTIBODY (BEAKER) (test mxkt=225) Nonreactive Nonreactive HEPATITIS B SURFACE ANTIGEN (2) (BEAKER) (test Nonreactive Nonreactive nsfk=2911) [id number] 07:09:00 Test Item Value Reference Range Comments MAGNESIUM (BEAKER) (test npqf=433) 2.6 mg/dL 1.6-2.6 TROPONIN [id number] 07:02:00 Test Item Value Reference Range Comments TROPONIN I (BEAKER) (test oekt=856) 0.09 ng/mL 0.00-0.03 Troponin I (TnI) levels [...] acute neurological disease, and persistent tachyarrhythmia.URINALYSIS W/ [id number] 06: 20:00 Test Item Value Reference Range Comments COLOR (BEAKER) (test nfav=342) Light Yellow CLARITY (BEAKER) (test moap=792) Hazy SPECIFIC GRAVITY UA (BEAKER) (test amsw=675) 1.008 1.001-1.035 PH UA (BEAKER) (test cmhl=930) 5.5 5.0-8.0 PROTEIN UA (BEAKER) (test knxi=897) 200 mg/dL Negative GLUCOSE UA (BEAKER) (test axvu=844) Negative Negative KETONES UA (BEAKER) (test bxku=672) Negative Negative BILIRUBIN UA (BEAKER) (test ttta=660) Negative Negative BLOOD UA (BEAKER) (test vprg=975) Moderate Negative NITRITE UA (BEAKER) (test aibw=992) Negative Negative LEUKOCYTE ESTERASE UA (BEAKER) (test nwwx=844) Large Negative UROBILINOGEN UA (BEAKER) (test yysh=553) 0.2 mg/dL 0.2-1.0 RBC UA (BEAKER) (test kowa=864) 35 /HPF WBC UA (BEAKER) (test dssj=761) 189 /HPF BACTERIA (BEAKER) (test gswi=976) Rare SQUAMOUS EPITHELIAL (BEAKER) (test uasy=288) 5 /HPF AMORPHOUS CRYSTALS (BEAKER) (test pvec=4544) Rare SOURCE(BEAKER) (test bxfa=7059) BLOOD GAS, [id number] 06:08:00 Test Item Value Reference Range Comments PH VENOUS (BEAKER) (test bupl=932) 7.27 7.32-7.42 PCO2 VENOUS (BEAKER) (test kxwn=629) 38 mmHg 41-51 PO2 VENOUS (BEAKER) (test lrkk=414) 48 mmHg 25-40 O2 SATURATION VENOUS (BEAKER) (test lpwg=951) 78.4 % 40.0-70.0 HCO3 VENOUS (BEAKER) (test augo=798) 17 mmol/L 21-29 BASE EXCESS VENOUS (BEAKER) (test beth=907) -9.2 mmol/L -2.0-3.0 PATIENT TEMPERATURE (BEAKER) (test jnsp=1745) 37.0 C FIO2 (BEAKER) (test lssk=6810) 21.0 % POCT-GLUCOSE [id number] 05:57:00 Test Item Value Reference Range Comments POC-GLUCOSE METER (BEAKER) 84 mg/dL 70-110 TESTED AT [address] (test zsil=8809) [facility] [address] [id number] 04:20:00 Test Item Value Reference Range Comments FERRITIN (BEAKER) (test nnhv=247) 241 ng/mL 5-275 HIV-1 ANTIGEN WITH HIV-1/2 [id number] 04:15:00 Test Item Value Reference Range Comments HIV-1 ANTIGEN WITH HIV 1\T\2 ANTIBODY (2) Nonreactive Nonreactive (BEAKER) (test jvrm=6960) RAD, CHEST, 1 VIEW, NON [id number] 04:02:00Reason for exam:->DIALYSIS CATHTER PLACEMENTShould this be [...] Date/Time: 11/26/2018 04: 02:49 04: 02 AMPTH, [id number] 04:00:00 Test Item Value Reference Range Comments PARATHYROID HORMONE INTACT (BEAKER) (test 375.7 pg/mL 8.5-72.5 dmva=753) IRON, TIBC, % SAT. (WITHOUT FERRITIN)2018-11-26 03:54:00 Test Item Value Reference Range Comments IRON (BEAKER) (test ghid=226) 47.0 ug/dL 40.0-160.0 TOTAL IRON BINDING CAPACITY (BEAKER) (test 309 ug/dL 250-450 zphm=972) IRON % SATURATION (2) (BEAKER) (test wmdy=5336) 15 % 20-55 BLOOD GAS, [id number] 03:31:00 Test Item Value Reference Range Comments PH VENOUS (BEAKER) (test ajsf=021) 7.21 7.32-7.42 PCO2 VENOUS (BEAKER) (test sefe=396) 36 mmHg 41-51 PO2 VENOUS (BEAKER) (test dnul=102) 49 mmHg 25-40 O2 SATURATION VENOUS (BEAKER) (test emwm=247) 76.7 % 40.0-70.0 HCO3 VENOUS (BEAKER) (test mggm=930) 14 mmol/L 21-29 BASE EXCESS VENOUS (BEAKER) (test yqon=884) -13.1 mmol/L -2.0-3.0 PATIENT TEMPERATURE (BEAKER) (test utnn=8045) 37.0 C FIO2 (BEAKER) (test okuz=5219) 21.0 % T4, [id number] 02:37:00 Test Item Value Reference Range Comments FREE T4 (BEAKER) (test buxl=656) 0.49 ng/dL 0.70-1.48 TSH/FREE T4 IF [id number] 01:57:00 Test Item Value Reference Range Comments THYROID STIMULATING HORMONE (BEAKER) (test 14.30 uIU/mL 0.35-4.94 rpnc=507) TROPONIN [id number] 01:39:00 Test Item Value Reference Range Comments TROPONIN I (BEAKER) (test tzxs=571) 0.09 ng/mL 0.00-0.03 Troponin I (TnI) levels [...] NATRIURETIC PEPTIDE (BEAKER) (test 1604 pg/mL 0-100 dcdv=874) [id number] 01:35:00 Test Item Value Reference Range Comments PHOSPHORUS (BEAKER) (test ozkc=896) 12.3 mg/dL 2.3-4.7 COMPREHENSIVE METABOLIC [id number] 01:34:00 Test Item Value Reference Range Comments TOTAL PROTEIN (BEAKER) 7.0 gm/dL 6.0-8.3 (test qbxf=233) ALBUMIN (BEAKER) (test 4.0 g/dL 3.5-5.0 mwcj=7905) ALKALINE PHOSPHATASE 87 U/L 40-150 (BEAKER) (test hwkl=172) BILIRUBIN TOTAL (BEAKER) 0.6 mg/dL 0.2-1.2 (test hjab=166) SODIUM (BEAKER) (test 131 meq/L 136-145 wmtr=231) POTASSIUM (BEAKER) (test 4.3 meq/L 3.5-5.1 itsy=959) CHLORIDE (BEAKER) (test 95 meq/L 98-107 eivo=574) CO2 (BEAKER) (test 12 meq/L 22-29 opsa=964) BLOOD UREA NITROGEN 113 mg/dL 7-21 (BEAKER) (test wory=151) CREATININE (BEAKER) (test 15.02 mg/dL 0.57-1.25 oyge=149) GLUCOSE RANDOM (BEAKER) 99 mg/dL 70-105 (test vcjf=328) CALCIUM (BEAKER) (test 8.6 mg/dL 8.4-10.2 vuct=613) AST (SGOT) (BEAKER) (test 27 U/L 5-34 ldzs=863) ALT (SGPT) (BEAKER) (test 27 U/L 6-55 dhyq=641) EGFR (BEAKER) (test 2 mL/min/1.73 sq m ESTIMATED GFR IS NOT dqih=6965) ACCURATE CREATININE CLEARANCE IN PREDICTING GLOMERULAR FILTRATION RATE. ESTIMATED GFR IS NOT APPLICABLE FOR DIALYSIS PATIENTS. LIPID [id number] 01:33:00 Test Item Value Reference Range Comments TRIGLYCERIDES (BEAKER) (test nmdi=139) 201 mg/dL CHOLESTEROL (BEAKER) (test cgun=809) 112 mg/dL HDL CHOLESTEROL (BEAKER) (test iwbw=433) 25 mg/dL LDL CHOLESTEROL CALCULATED (BEAKER) (test 47 mg/dL utwe=651) Triglyceride Reference Range: Low Risk <150 Borderline [...] Range Comments CREATINE KINASE TOTAL (BEAKER) (test rvax=062) 668 U/L 29-200 [id number] 01:31:00 Test Item Value Reference Range Comments MAGNESIUM (BEAKER) (test uvls=265) 2.6 mg/dL 1.6-2.6 [id number] 01:29:00 Test Item Value Reference Range Comments PROTIME (BEAKER) (test rfba=225) 16.7 seconds 11.9-14.2 INR (BEAKER) (test xzht=391) 1.4 <=5.9 PARTIAL THROMBOPLASTIN TIME (BEAKER) (test 35.6 seconds 22.5-36.0 vqss=560) Effective 10/02/2018: PT Reference Range ChangeNew: 11.9-14.2 Previous: 11.7- 14.7RECOMMENDED COUMADIN/WARFARIN INR THERAPY RANGESSTANDARD DOSE: 2.0-3.0 Includes: PROPHYLAXIS for venous thrombosis, systemic embolization; TREATMENT for venous thrombosis and/or pulmonary embolus.HIGH RISK: Target INR is2.5-3.5 for patients wiht mechanical heart valves.PROTHROMBIN [id number] 01:28: 00 Test Item Value Reference Range Comments PROTIME (BEAKER) (test umie=039) 16.7 seconds 11.9-14.2 INR (BEAKER) (test dfsa=174) 1.4 <=5.9 Effective 10/02/2018: PT Reference Range ChangeNew: 11.9-14.2 Previous: 11.7- 14.7RECOMMENDED COUMADIN/WARFARIN INR THERAPY RANGESSTANDARD DOSE: 2.0-3.0 Includes: PROPHYLAXIS for venous thrombosis, systemic embolization; TREATMENT for venous thrombosis and/or pulmonary embolus.HIGH RISK: Target INR is2.5-3.5 for patients wiht mechanical heart valves.LACTIC ACID, [id number] 01:24:00 Test Item Value Reference Range Comments LACTATE BLOOD VENOUS (2) 1.7 mmol/L 0.5-2.2 Specimen slightly hemolyzed (BEAKER) (test qqih=9221) RAD, CHEST, 1 VIEW, NON [id number] 01:15:00Reason for exam:->Elevated BNPShould this be performed [...] 2018 01:15 AMCBC W/PLT COUNT & AUTO [id number] 01:14:00 Test Item Value Reference Range Comments WHITE BLOOD CELL COUNT (BEAKER) (test wmln=414) 8.3 K/ L 3.5-10.5 RED BLOOD CELL COUNT (BEAKER) (test pdpt=146) 3.24 M/ L 3.93-5.22 HEMOGLOBIN (BEAKER) (test nrlx=936) 9.8 GM/DL 11.2-15.7 HEMATOCRIT (BEAKER) (test uwii=108) 29.9 % 34.1-44.9 MEAN CORPUSCULAR VOLUME (BEAKER) (test lsct=189) 92.3 fL 79.4-94.8 MEAN CORPUSCULAR HEMOGLOBIN (BEAKER) (test 30.2 pg 25.6-32.2 gcoh=110) MEAN CORPUSCULAR HEMOGLOBIN CONC (BEAKER) (test 32.8 GM/DL 32.2-35.5 mipa=644) RED CELL DISTRIBUTION WIDTH (BEAKER) (test 14.4 % 11.7-14.4 zkid=274) PLATELET COUNT (BEAKER) (test igdg=938) 225 K/CU MM 150-450 MEAN PLATELET VOLUME (BEAKER) (test rqzk=303) 9.5 fL 9.4-12.3 NUCLEATED RED BLOOD CELLS (BEAKER) (test 0 /100 WBC 0-0 jxwk=426) NEUTROPHILS RELATIVE PERCENT (BEAKER) (test 76 % lswm=891) LYMPHOCYTES RELATIVE PERCENT (BEAKER) (test 15 % wedx=759) MONOCYTES RELATIVE PERCENT (BEAKER) (test 6 % cxcv=540) EOSINOPHILS RELATIVE PERCENT (BEAKER) (test 0 % ewsf=821) BASOPHILS RELATIVE PERCENT (BEAKER) (test 1 % bouc=599) NEUTROPHILS ABSOLUTE COUNT (BEAKER) (test 6.32 K/ L 1.56-6.13 kizh=436) LYMPHOCYTES ABSOLUTE COUNT (BEAKER) (test 1.28 K/ L 1.18-3.74 otkz=226) MONOCYTES ABSOLUTE COUNT (BEAKER) (test 0.53 K/ L 0.24-0.36 mway=497) EOSINOPHILS ABSOLUTE COUNT (BEAKER) (test 0.02 K/ L 0.04-0.36 fyro=550) BASOPHILS ABSOLUTE COUNT (BEAKER) (test 0.07 K/ L 0.01-0.08 ulze=750) IMMATURE GRANULOCYTES-RELATIVE PERCENT (BEAKER) 1 % 0-1 (test yfoh=4840)
--- OUTSIDE RECORDS SUMMARY | 2019-03-21 11:02 | XMS REPORT | Summary of Care ---
:1950 Author Organization [facility] Address [address] [place] [id number] Care Team Providers Name Role Phone Pcp, Patient Does Not Have A Primary Care Provider Reason for Visit Reason Comments Follow-up Encounter Details Date Type Department Care Team Description 01/20/2019 Office Visit [facility] Arthur Killian Uncontrolled type 2 diabetes mellitus with hyperglycemia (Primary Dx); Neurology-Suzan White MD Diabetic peripheral neuropathy; [address] [place] [address] [address], [address] [place] [id number] Allergies No Known Allergiesdocumented as of this [...] had been admitted to the hospital at [facility]. Imaging study of the brain had [...] file Gets together: Not on file Attends [employer] service: Not on file Active member of [...] as possible. My understanding is that her counterintelligence specialist did not want her to stop the anticoagulation for a few days in order to get the lumbar puncture completed. This test would have been useful to help narrow the differential diagnosis. I also did say that I would contact the [facility] rehabilitation unit and see if the patient [...] from a Microsoft Word template created with [employer]. The text was dictated into the template [...]
[2019-03-21 12:24] LABS: Absolute Lymphocytes (CBC) 1.8 K/uL (0.7-4.9); Basophils % 1.2 % (0-1.3); Hematocrit 33.9 % (36.0-45.0); Lymphocytes % 21.2 % (15.3-44.8); MPV 7.5 fL (7.6-11.3); RBC Red Blood Cell Count 4.23 M/uL (3.86-4.86)
[2019-03-21 12:29] LABS: Protime INR 1.88
[2019-03-21 12:52] LABS: ALT/SGPT 19 U/L (12-78); AST/SGOT 22 U/L (15-37); Albumin 3.8 g/dL (3.4-5.0); Alkaline Phosphatase 89 U/L (45-117); BUN Blood Urea Nitrogen 7 mg/dL (7-18); Bicarbonate 29 mmol/L (21-32); Bilirubin Direct 0.3 mg/dL (0-0.2); Bilirubin Total 1.3 mg/dL (0.2-1.0); Glucose Level 102 mg/dL (74-106); Magnesium 2.1 mg/dL (1.8-2.4); NT PRO-BNP 2214 pg/mL (<125); Potassium 3.3 mmol/L (3.5-5.1); Protein, Total 7.8 g/dL (6.4-8.2); Sodium Level 136 mmol/L (136-145); Troponin (Emerg Dept Use Only) < 0.02 ng/mL (0.0-0.045)
--- NOTE | 2019-03-21 13:39 | RAD REPORT ---
EXAM DESCRIPTION: CT - Chest For Pe Angio - 03/21/2019 1:31 pm CLINICAL HISTORY: Chest pain. DYSPNEA COMPARISON: Ct Stroke Brain Wo Cont dated 01/13/2019; Stone Protocol dated 11/25/2018 TECHNIQUE: CT angiogram of the pulmonary arteries was performed with MIP. All CT scans are performed using dose optimization technique as appropriate and may include automated exposure control or mA/KV adjustment according to patient size. FINDINGS: No evidence of pulmonary thromboembolism. No acute aortic finding demonstrated. Interstitial opacities are seen in both upper lobes subpleural location which may represent inflammat ion/alveolitis or interstitial pulmonary edema. Moderate compressive atelectasis is present in both l hunter bases. Moderate bilateral pleural effusions. No concerning bony finding. IMPRESSION: No evidence of pulmonary thromboembolism. Moderate bilateral pleural effusions with interstitial lung opacities bilaterally which may represent infection/ pneumonia or pulmonary edema.
[2019-03-21 13:44] LABS: Urine Bacteria <20 /HPF (<20); Urine Culture Reflex Order NOT NEEDED; Urine RBC NONE SEEN /HPF (NONE SEEN)
[2019-03-21 14:02] LABS: Urine Blood NEGATIVE (NEG); Urine Glucose NEGATIVE (NEG); Urine Protein NEGATIVE (NEG); Urine Specific Gravity >1.030 (1.005-1.030)
--- NOTE | 2019-03-21 14:14 | RAD REPORT ---
EXAM DESCRIPTION: RAD - Chest Pa And Lat (2 Views) - 03/21/2019 12:00 pm CLINICAL HISTORY: Cough;Congestion Chest pain. COMPARISON: Chest Single View dated 01/13/2019; Chest Single View dated 11/25/2018; CHEST PA AND LAT 2 VIEW dated 07/04/2007 FINDINGS: Interstitial prominence is present which may represent interstitial pneumonitis or mild in terstitial pulmonary edema. The heart is mildly enlarged in size with sternotomy wires present. Bilat eral pleural effusions are seen, larger on the left with compressive atelectasis in both lung bases.
--- NOTE | 2019-03-21 14:27 | ER ---
Nurse's Notes [facility] Name: Renetta Dey Age: 68 yrs Sex: Female : 1950 Arrival Date: 03/21/2019 Time: 10:54 Bed 19 Private MD: Yusef Zurita B Diagnosis: Dyspnea, unspecified;Acute pulmonary edema Presentation: 03/21 11:12 Presenting complaint: Patient states: a couple of days i havent been feeling well, i tw2 have been tired, sleeping it off, i feel short of breath, and having cough, the physical therapist took my blood pressure and it was high and my oxygenation was low, he got 82% on room air. Transition of care: patient was not received from another setting of care. Onset of symptoms was March 21, 2019. Risk Assessment: Do you want to hurt yourself or someone else? Patient reports no desire to harm self or others. Initial Sepsis Screen: Does the patient meet any 2 criteria? No. Patient's initial sepsis screen is negative. Does the patient have a suspected source of infection? No. Patient's initial sepsis screen is negative. Care prior to arrival: None. 11:12 Method Of Arrival: Wheelchair tw2 11:12 Acuity: ELEAZAR 2 tw2 Triage Assessment: 11:14 General: Appears in no apparent distress. Behavior is calm, cooperative, appropriate tw2 for age. Pain: Denies pain. Respiratory: Reports shortness of breath at rest on exertion cough that is. Historical: - Allergies: 11:19 "no allergies that i know of"; tw2 - Home Meds: 11:19 amlodipine 10 mg tab 1 tab once daily [Active]; Bystolic 10 mg Oral tab 1 tab once tw2 daily [Active]; Eliquis 5 mg Oral tab 1 tab 2 times per day [Active]; famotidine 20 mg Oral tab as needed [Active]; Folic Acid Oral [Active]; gabapentin 900 mg Oral tab 1 cap twice a day [Active]; Insulin: Humalog Sub-Q 25 unit daily [Active]; levothyroxine 25 mcg tab 1 tab once daily [Active]; melatonin 10 mg Oral tab nightly [Active]; Plavix 75 mg Oral tab 1 tab once daily [Active]; rosuvastatin 20 mg Oral tab 1 tab once daily [Active]; Vitamin B-12 Oral [Active]; L-Methylfolate Ca P-5-P Me-Cbl 3 mg-35 mg-2 mg -90.314 mg oral cap [Active]; duloxetine 20 mg oral cpDR 1 cap 2 times per day [Active]; gabapentin 600 mg oral tab 1 tab nightly [Active]; - PMHx: 11:19 Back pain; CVA; Diabetes - IDDM; Hypertension; ESRD; tw2 - PSHx: 11:19 Carotid surgery; CABG; femoral surgery; tw2 - Immunization history:: Adult Immunizations. - Social history:: Smoking status: . - Ebola Screening: : Patient denies travel to an Ebola-affected area in the 21 days before illness onset. Screenin:45 Abuse screen: Denies threats or abuse. Nutritional screening: No deficits noted. em Tuberculosis screening: No symptoms or risk factors identified. Fall Risk None identified. Assessment: 11:30 General: Appears in no apparent distress. comfortable, Behavior is calm, cooperative, em Reports fatigue for 2-3 days, Denies fever. Pain: Complains of pain in chest. Neuro: Level of Consciousness is awake, alert, obeys commands, Oriented to person, place, time, situation, Appropriate for age. Cardiovascular: Reports fatigue, shortness of breath, Heart tones S1 S2 present Capillary refill < 3 seconds Patient's skin is warm and dry. Edema is 2+ to left ankle, left foot, right ankle and right foot. Respiratory: Reports shortness of breath on exertion labored breathing since " a few days" Airway is patent Respiratory effort is even, unlabored, Respiratory pattern is tachypnea Breath sounds are diminished bilaterally. Derm: Skin is intact, is healthy with good turgor, Skin is pink, warm \\T\\ dry. Musculoskeletal: Capillary refill < 3 seconds, Range of motion: intact in all extremities. 13:24 Reassessment: wheeled to CT. em 14:23 Reassessment: Patient appears in no apparent distress at this time. Patient and/or em family updated on plan of care and expected duration. Pain level reassessed. Patient is alert, oriented x 3, equal unlabored respirations, skin warm/dry/pink. 15:18 Reassessment: Patient appears in no apparent distress at this time. Patient and/or em family updated on plan of care and expected duration. Pain level reassessed. Patient is alert, oriented x 3, equal unlabored respirations, skin warm/dry/pink. pending bed assignment. Vital Signs: 11:14 BP 162 / 95; Pulse 90; Resp 19; Temp 98.1(O); Pulse Ox 87% on R/A; Weight 74.39 kg (R); tw2 Height 5 ft. 3 in. (160.02 cm); Pain 7/10; 11:38 BP 123 / 70; Pulse 82; Resp 18; Pulse Ox 99% on 2 lpm NC; em 12:30 BP 123 / 91; Pulse 81; Resp 18; Pulse Ox 97% on 2 lpm NC; em 14:00 BP 181 / 83; Pulse 88; Resp 18; Pulse Ox 98% on 2 lpm NC; em 15:15 BP 196 / 82; Pulse 88; Resp 18; Pulse Ox 100% on 2 lpm NC; em 11:14 Body Mass Index 29.05 (74.39 kg, 160.02 cm) tw2 11:14 pt placed on o2 via nc at 2L and is 98% at this time. tw2 ED Course: 10:54 Patient arrived in ED. ag5 10:54 Yusef Zurita MD is Private Physician. ag5 11:14 Triage completed. tw2 11:14 Arm band placed on. tw2 11:16 Tammie Booth FNP-C [facility]. kb 11:16 Jamar Gaspar MD is Attending Physician. kb 11:22 Khalif Navarro LVN is Primary Nurse. em 11:45 Patient has correct armband on for positive identification. Fall risk band placed. em Placed in gown. Bed in low position. Side rails up X2. Adult w/ patient. Pulse ox on. NIBP on. 12:00 Chest Pa And Lat (2 Views) XRAY In Process Unspecified. EDMS 12:15 EKG done, by wind tunnel technician. reviewed by Jamar Gaspar MD. tc 13:32 CT Chest For PE Angio In Process Unspecified. EDMS 13:50 Inserted saline lock: 22 gauge in right antecubital area, using aseptic technique. em 14:26 Rebekah Noel MD is Hospitalizing Provider. kb 16:10 No provider procedures requiring assistance completed. Patient admitted, IV remains in em place. Administered Medications: 14:35 Drug: Lasix 40 mg Route: IVP; Site: right antecubital; 15:00 Follow up: Response: No adverse reaction em Outcome: 14:27 Decision to Hospitalize by Provider. kb 16:12 Admitted to Tele accompanied by tech, via stretcher, room 220, with oxygen, with chart, em Report called to PERLITA Yuen 16:12 Condition: good 16:12 Instructed on the need for admit, Demonstrated understanding of instructions. 16:47 Patient left the ED. em Signatures: Dispatcher [employer] EDTammie Verma, IMAGING ANALYST-C IMAGING ANALYST-Ckb Khalif Navarro, CHANGE OF ADDRESS CLERK CHANGE OF ADDRESS CLERK em Jayda Myers, PERLITA RN Pily Cárdenas, out of school hours care worker EKG [facility] Danielle Rosenberg RN RN tw2 Neeta Aguilar ag5 Corrections: (The following items were deleted from the chart) 14:24 11:38 BP 123 / 70; Pulse 82bpm; Resp 18bpm; Pulse Ox 99% RA; em em 14:24 12:30 BP 123 / 91; Pulse 81bpm; Resp 18bpm; Pulse Ox 97% RA; em em 14:24 14:00 BP 181 / 83; Pulse 88bpm; Resp 18bpm; Pulse Ox 98% RA; em em 16:12 15:15 BP 196 / 82; Pulse 88bpm; Resp 18bpm; Pulse Ox 100% RA; em em
[2019-03-21] MEDS ORDERED: FUROSEMIDE 40 MG/4 ML VIAL ONE (14:28)
--- NOTE | 2019-03-21 14:28 | EDPHYS ---
Physician Documentation [facility] Name: Renetta Dey Age: 68 yrs Sex: Female : 1950 Arrival Date: 03/21/2019 Time: 10:54 Bed 19 Private MD: Yusef Zurita B ED Physician Jamar Gaspar HPI: 03/21 12:01 This 68 yrs old Female presents to ER via Wheelchair with complaints of High kb Blood Pressure. 12:02 The patient has shortness of breath at rest. Onset: The symptoms/episode began/occurred kb 4 day(s) ago. Duration: The symptoms are continuous. The patient's shortness of breath is aggravated by exertion. Associated signs and symptoms: Pertinent positives: non-productive cough, fever. Severity of symptoms: At their worst the symptoms were moderate in the emergency department the symptoms are unchanged. The patient has not experienced similar symptoms in the past. The patient has not recently seen a physician. Pt reports shortness of breath, cough, fatigue, malaise and fever for 4 days. Reports her legs have been swollen for about a week as well. . Historical: - Allergies: 11:19 "no allergies that i know of"; tw2 - Home Meds: 11:19 amlodipine 10 mg tab 1 tab once daily [Active]; Bystolic 10 mg Oral tab 1 tab once tw2 daily [Active]; Eliquis 5 mg Oral tab 1 tab 2 times per day [Active]; famotidine 20 mg Oral tab as needed [Active]; Folic Acid Oral [Active]; gabapentin 900 mg Oral tab 1 cap twice a day [Active]; Insulin: Humalog Sub-Q 25 unit daily [Active]; levothyroxine 25 mcg tab 1 tab once daily [Active]; melatonin 10 mg Oral tab nightly [Active]; Plavix 75 mg Oral tab 1 tab once daily [Active]; rosuvastatin 20 mg Oral tab 1 tab once daily [Active]; Vitamin B-12 Oral [Active]; L-Methylfolate Ca P-5-P Me-Cbl 3 mg-35 mg-2 mg -90.314 mg oral cap [Active]; duloxetine 20 mg oral cpDR 1 cap 2 times per day [Active]; gabapentin 600 mg oral tab 1 tab nightly [Active]; - PMHx: 11:19 Back pain; CVA; Diabetes - IDDM; Hypertension; ESRD; tw2 - PSHx: 11:19 Carotid surgery; CABG; femoral surgery; tw2 - Immunization history:: Adult Immunizations. - Social history:: Smoking status: . - Ebola Screening: : Patient denies travel to an Ebola-affected area in the 21 days before illness onset. ROS: 11:59 ENT: Negative for injury, pain, and discharge, Neck: Negative for injury, pain, and kb swelling, Cardiovascular: Negative for chest pain, palpitations, and edema, Abdomen/GI: Negative for abdominal pain, nausea, vomiting, diarrhea, and constipation, Back: Negative for injury and pain, : Negative for injury, bleeding, discharge, and swelling, MS/Extremity: Negative for injury and deformity, Skin: Negative for injury, rash, and discoloration, Neuro: Negative for headache, weakness, numbness, tingling, and seizure. 12:00 Constitutional: Positive for chills, fatigue, fever, malaise. kb 12:00 Respiratory: Positive for cough, shortness of breath. Exam: 12:01 Constitutional: This is a well developed, well nourished patient who is awake, alert, kb and in no acute distress. Head/Face: Normocephalic, atraumatic. ENT: Nares patent. No nasal discharge, no septal abnormalities noted. Tympanic membranes are normal and external auditory canals are clear. Oropharynx with no redness, swelling, or masses, exudates, or evidence of obstruction, uvula midline. Mucous membranes moist. Neck: Trachea midline, no thyromegaly or masses palpated, and no cervical lymphadenopathy. Supple, full range of motion without nuchal rigidity, or vertebral point tenderness. No Meningismus. Chest/axilla: Normal chest wall appearance and motion. Nontender with no deformity. No lesions are appreciated. Abdomen/GI: Soft, non-tender, with normal bowel sounds. No distension or tympany. No guarding or rebound. No evidence of tenderness throughout. Skin: Warm, dry with normal turgor. Normal color with no rashes, no lesions, and no evidence of cellulitis. MS/ Extremity: Pulses equal, no cyanosis. Neurovascular intact. Full, normal range of motion. Neuro: Awake and alert, GCS 15, oriented to person, place, time, and situation. Cranial nerves II-XII grossly intact. Motor strength 5/5 in all extremities. Sensory grossly intact. Cerebellar exam normal. Normal gait. 12:01 Cardiovascular: Rate: normal, Rhythm: irregularly irregular, Pulses: no pulse deficits are appreciated, Heart sounds: normal, Edema: lower extremity edema. 12:04 Respiratory: the patient does not display signs of respiratory distress, Respirations: kb labored breathing, that is mild, Breath sounds: decreased breath sounds, that are mild, that are moderate, are located in both bases. 12:04 ECG was reviewed by the Attending Physician. kb Vital Signs: 11:14 BP 162 / 95; Pulse 90; Resp 19; Temp 98.1(O); Pulse Ox 87% on R/A; Weight 74.39 kg (R); tw2 Height 5 ft. 3 in. (160.02 cm); Pain 7/10; 11:38 BP 123 / 70; Pulse 82; Resp 18; Pulse Ox 99% on 2 lpm NC; em 12:30 BP 123 / 91; Pulse 81; Resp 18; Pulse Ox 97% on 2 lpm NC; em 14:00 BP 181 / 83; Pulse 88; Resp 18; Pulse Ox 98% on 2 lpm NC; em 15:15 BP 196 / 82; Pulse 88; Resp 18; Pulse Ox 100% on 2 lpm NC; em 11:14 Body Mass Index 29.05 (74.39 kg, 160.02 cm) tw2 11:14 pt placed on o2 via nc at 2L and is 98% at this time. tw2 MDM: 11:20 Patient medically screened. kb 11:58 Data interpreted: Pulse oximetry: on room air is 87 %. Interpretation: hypoxia. kb 11:58 Data reviewed: vital signs, nurses notes. Data interpreted: Pulse oximetry: on 2L(s) kb per nasal canula, is 94 %. Interpretation: acceptable. 14:10 Counseling: I had a detailed discussion with the patient and/or guardian regarding: the kb historical points, exam findings, and any diagnostic results supporting the discharge/admit diagnosis, lab results, radiology results, the need for further work-up and treatment in the hospital. 03/21 11:26 Order name: Basic Metabolic Panel; Complete Time: 12:56 kb 03/21 11:26 Order name: CBC with Diff; Complete Time: 12:34 kb 03/21 11:26 Order name: LFT's; Complete Time: 12:56 kb 03/21 11:26 Order name: Magnesium; Complete Time: 12:56 kb 03/21 11:26 Order name: NT PRO-BNP; Complete Time: 12:56 kb 03/21 11:26 Order name: PT-INR; Complete Time: 12:34 kb 03/21 11:26 Order name: Troponin (emerg Dept Use Only); Complete Time: 12:56 kb 03/21 11:26 Order name: Blood Culture Adult (2) kb 03/21 11:26 Order name: Flu; Complete Time: 12:56 kb 03/21 11:26 Order name: Procalcitonin; Complete Time: 14:10 kb 03/21 11:26 Order name: Lactate; Complete Time: 12:44 kb 03/21 12:01 Order name: D-Dimer; Complete Time: 12:56 kb 03/21 12:20 Order name: Urine Microscopic Only; Complete Time: 13:47 em 03/21 12:37 Order name: Urine Dipstick--Ancillary (enter results); Complete Time: 14:05 eb 03/21 11:16 Order name: Chest Pa And Lat (2 Views) XRAY; Complete Time: 14:18 kb 03/21 11:26 Order name: EKG; Complete Time: 11:27 kb 03/21 11:26 Order name: Cardiac monitoring; Complete Time: 12:16 kb 03/21 11:26 Order name: EKG - Nurse/Tech; Complete Time: 12:17 kb 03/21 11:26 Order name: Labs collected and sent; Complete Time: 12:17 kb 03/21 11:26 Order name: O2 Per Protocol; Complete Time: 12:17 kb 03/21 11:26 Order name: O2 Sat Monitoring; Complete Time: 12:17 kb 03/21 12:56 Order name: CT Chest For PE Angio; Complete Time: 13:43 kb 03/21 14:30 Order name: CONS Physician Consult EDTN 03/21 14:31 Order name: Heart Healthy EDTN 03/21 14:31 Order name: Echo with Doppler EDTN EC:04 Rate is 78 beats/min. Rhythm is irregularly irregular, A fib. QRS [place] is Normal. [place] kb interval is normal. QRS interval is normal at 82 msec. Administered Medications: 14:35 Drug: Lasix 40 mg Route: IVP; Site: right antecubital; 15:00 Follow up: Response: No adverse reaction em Disposition: 03/21/19 14:27 Hospitalization ordered by Rebekah Noel for Inpatient Admission. Preliminary diagnosis are Dyspnea, unspecified, Acute pulmonary edema. - Bed requested for Telemetry/MedSurg (Inpatient). - Status is Inpatient Admission. em - Condition is Stable. - Problem is new. - Symptoms are unchanged. UTI on Admission? No Addendum: 03/25/2019 06:28 Co-signature as Attending Physician, Jamar Gaspar MD I agree with the assessment and k dr plan of care. Signatures: Dispatcher [employer] EDMS Tammie Booth, PERSONNEL TECHNICIAN-C PERSONNEL TECHNICIAN-Ckb Jamar Gaspar MD MD [facility] Khalif Navarro, DIGITAL DIRECTOR DIGITAL DIRECTOR Jayda Garcia RN RN ss Wise, Tara RN RN tw2 Mehrdad Goins, RN RN ja1 Corrections: (The following items were deleted from the chart) 03/21 12:00 11:59 Constitutional: Negative for fever, chills, and weight loss, Cardiovascular: kb Negative for chest pain, palpitations, and edema, Abdomen/GI: Negative for abdominal pain, nausea, vomiting, diarrhea, and constipation, Back: Negative for injury and pain, : Negative for injury, bleeding, discharge, and swelling, MS/Extremity: Negative for injury and deformity, Skin: Negative for injury, rash, and discoloration, kb 12:04 12:01 Constitutional: This is a well developed, well nourished patient who is awake, kb alert, and in no acute distress. Head/Face: Normocephalic, atraumatic. ENT: Nares patent. No nasal discharge, no septal abnormalities noted. Tympanic membranes are normal and external auditory canals are clear. Oropharynx with no redness, swelling, or masses, exudates, or evidence of obstruction, uvula midline. Mucous membranes moist. Neck: Trachea midline, no thyromegaly or masses palpated, and no cervical lymphadenopathy. Supple, full range of motion without nuchal rigidity, or vertebral point tenderness. No Meningismus. Chest/axilla: Normal chest wall appearance and motion. Nontender with no deformity. No lesions are appreciated. Abdomen/GI: Soft, non-tender, with normal bowel sounds. No distension or tympany. No guarding or rebound. No evidence of tenderness throughout. Skin: Warm, dry with normal turgor. Normal color with no rashes, no lesions, and no evidence of cellulitis. MS/ Extremity: Pulses equal, no cyanosis. Neurovascular intact. Full, normal range of motion. Neuro: Awake and alert, GCS 15, oriented to person, place, time, and situation. Cranial nerves II-XII grossly intact. Motor strength 5/5 in all extremities. Sensory grossly intact. Cerebellar exam normal. Normal gait. kb 12:04 12:01 Cardiovascular: Rate: normal, Rhythm: regular, Pulses: no pulse deficits are kb appreciated, Heart sounds: normal, Edema: lower extremity edema, kb 15:25 14:27 Hospitalization Ordered by Rebekah Noel MD for Inpatient Admission. Preliminary ja1 diagnosis is Dyspnea, unspecified; Acute pulmonary edema. Bed requested for Telemetry/MedSurg (Inpatient). Status is Inpatient Admission. Condition is Stable. Problem is new. Symptoms are unchanged. UTI on Admission? No. kb 16:47 15:25 03/21/2019 14:27 Hospitalization Ordered by Rebekah Noel MD for Inpatient em Admission. Preliminary diagnosis is Dyspnea, unspecified; Acute pulmonary edema. Bed requested for Telemetry/MedSurg (Inpatient). Status is Inpatient Admission. Condition is Stable. Problem is new. Symptoms are unchanged. UTI on Admission? No. ja1
--- NOTE | 2019-03-21 16:50 | EKG ---
Test Date: 2019-03-21 Test Time: 12:01:36 Elastic Yarn Twister Helper: DONNIE MEASUREMENT RESULTS: Intervals: Rate: 78 ND: QRSD: 82 QT: 438 QTc: 499 [place]: P: ND: QRS: 75 T: 67 INTERPRETIVE STATEMENTS: Atrial fibrillation Prolonged QT Abnormal ECG Compared to ECG 01/13/2019 11:50:38 Prolonged QT interval now present Sinus rhythm no longer present Sinus arrhythmia no longer present ST (T wave) deviation no longer present Electronically Signed On 03-21-19 16:49:42 GAS LINE INSTALLER SUPERVISOR by Jorje Patricia
--- NOTE | 2019-03-21 16:56 | ECHO ---
HEIGHT: ft in WEIGHT: lb oz DATE OF STUDY: 03/21/[address]: Rebekah Noel MD 2-DIMENSIONAL: YES M.MODE: YES DOPPLER: YES COLOR FLOW: YES TDS: PORTABLE: DEFINITY: BUBBLE STUDY: DIAGNOSIS: CHF CARDIAC HISTORY: CATHERIZATION: SURGERY: YES PROSTHETIC VALVE: NO PACEMAKER: NO MEASUREMENTS (cm) DIASTOLIC (NORMALS) SYSTOLIC (NORMALS) IVSd 0.8 (0.6-1.2) LA Diam 4.0 (1.9-4.0) LVEF 69% LVIDd 4.0 (3.5-5.7) LVIDs 2.5 (2.0-3.5) %FS 38% LVPWd 0.9 (0.6-1.2) Ao Diam 2.3 (2.0-3.7) 2 DIMENSIONAL ASSESSMENT: RIGHT ATRIUM: DILATED LEFT ATRIUM: DILATED RIGHT VENTRICLE: NORMAL LEFT VENTRICLE: NORMAL TRICUSPID VALVE: NORMAL MITRAL VALVE: NORMAL PULMONIC VALVE: NORMAL AORTIC VALVE: NORMAL PERICARDIAL EFFUSION: NONE AORTIC ROOT: NORMAL LEFT VENTRICULAR WALL MOTION: NORMAL DOPPLER/COLOR FLOW: MILD MITRAL REGURGITATION AND TRICUSPID REGURGITATION. ESTIMATED RIGHT VENTRICULAR SYSTOLIC PRESSURE 42 mmHg. MILD PULMONARY HYPERTENSION. COMMENTS: NORMAL LEFT VENTRICULAR EJECTION FRACTION. DILATED LEFT AND RIGHT ATRIUM. MILD MITRAL REGURGITATION AND TRICUSPID REGURGITATION. MILD PULMONARY HYPERTENSION. ATRIAL FIBRILLATION HEART RATE 70-90 BEATS PER MINUTE. TECHNOLOGIST: ARPIT SAUCEDO
[2019-03-21] MEDS ORDERED: ACETAMINOPHEN 500 MG TAB PO PRN (16:57)
[2019-03-21] MEDS ORDERED: ONDANSETRON 4 MG/2 ML VIAL IV PRN (16:57)
[2019-03-21 17:02] VITALS: BMI 29.8
[2019-03-21] MEDS ORDERED: D50W 25 GM/50 ML SYRINGE/VIAL IV PRN (17:22)
[2019-03-21] MEDS ORDERED: GLUCAGON 1 MG/VIAL IM PRN (17:22)
--- NOTE | 2019-03-21 17:22 | P.HP ---
Certification for Inpatient Patient admitted to: Observation With expected LOS: <2 Midnights Patient will require the following post-hospital care: None Practitioner: I am a practitioner with admitting privileges, knowledge of patient current condition, hospital course, and medical plan of care. Services: Services provided to patient in accordance with Admission requirements found in Title 42 Section 412.3 of the Code of Federal Regulations Patient History Date of Service: 03/21/19 Primary Care Provider: Dr. Zurita Reason for admission: Dyspnea History of Present Illness: This is a 68-year-old female with significant past medical history of hypertension, diabetes, atrial fibrillation, CAD with CABG in the past, diastolic congestive heart failure who presented to the ED complaining of having shortness of breath. Patient stated that she was working with physical therapy today and started having some shortness of breath at that time when they measure her oxygenation her oxygen level was down to 82% and the she decided to come to the ER. Patient has also been noticing some bilateral lower extremity edema and has not been unable to lay flat in her bed for past couple of days as well. Patient stated that her symptoms are getting progressively worse. Patient also of note had viral upper respiratory infection about 3 days ago that she got from her granddaughter who is 4 years of age. Patient stated that she has been having some low-grade fever and chills at the house as well. No other associated symptoms at this time. Patient has not taken any medications at home at this time. Does see local cardiology here for her heart along with primary care doctor as well. Allergies iodine Allergy (Verified 11/25/18 18:16) Hives Home medications list reviewed: Yes - Past Medical/Surgical History Has patient received pneumonia vaccine in the past: No Diabetic: Yes -: Diabetes -: Hypertension -: Atrial fibrillation -: CAD with CABG -: CHF Review of Systems 10-point ROS is otherwise unremarkable Physical Examination - Physical Exam General: Alert, Mild distress HEENT: Atraumatic, PERRLA, Mucous membr. moist/pink, EOMI, Sclerae nonicteric Neck: Supple, 2+ carotid pulse no bruit, No LAD, Without JVD or thyroid abnormality Respiratory: Clear to auscultation bilaterally, Normal air movement Cardiovascular: Regular rate/rhythm, Normal S1 S2 Gastrointestinal: Normal bowel sounds, No tenderness Musculoskeletal: Swelling (2+ edema bilateral lower extremity) Integumentary: No rashes Neurological: Normal gait, Normal speech, Normal strength at 5/5 x4 extr, Normal tone, Normal affect Lymphatics: No axilla or inguinal lymphadenopathy - Studies Laboratory Data (last 24 hrs) 03/21/19 12:05: PT 21.6 H, INR 1.88 03/21/19 12:05: WBC 8.4, Hgb 11.5 L, Hct 33.9 L, Plt Count 311 03/21/19 12:05: Sodium 136, Potassium 3.3 L, BUN 7, Creatinine 0.57, Glucose 102 , Magnesium 2.1 D, Total Bilirubin 1.3 H, AST 22, ALT 19, Alkaline Phosphatase 89 Microbiology Data (last 24 hrs): 03/21/19 12:05 Nasopharnyx Influenza Type A Antigen Screen - Final 03/21/19 12:05 Nasopharnyx Influenza Type B Antigen Screen - Final Assessment and Plan - Problems (Diagnosis) (1) CHF exacerbation Current Visit: Yes Status: Acute Plan: Acute on chronic congestive heart failure most likely secondary to diastolic dysfunction worsening due to upper respiratory infection -started on IV Lasix 40 b.i.d. at this time -strict input and output at this time. -fluid restriction along with daily weights -echocardiogram pending at this time -cardiology consulted. Awaiting recommendations -will follow up with chest x-ray lab work tomorrow. Qualifiers: Heart failure type: diastolic Qualified Code(s): I50.33 - Acute on chronic diastolic (congestive) heart failure (2) Bilateral pleural effusion Current Visit: Yes Status: Acute Plan: Bilateral pleural fusion most likely secondary to CHF exacerbation -Started on IV Lasix at this time -the patient had a CT scan done here in the hospital which was consistent with bilateral pleural effusion and interstitial opacity most likely pulmonary edema however post viral pneumonia cannot be ruled out at this time -will start on Rocephin and azithromycin -influenza and RSV panel pending at this time (3) Diabetes Current Visit: Yes Status: Chronic Plan: Insulin sliding scale and Accu-Cheks Qualifiers: Diabetes mellitus type: type 2 Diabetes mellitus adjunct faculty for medical terminology insulin use: with adjunct faculty for medical terminology use Diabetes mellitus complication status: without complication Qualified Code(s): E11.9 - Type 2 diabetes mellitus without complications; 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 transplanted heart: [place] heart Associated angina: without angina Qualified Code(s): I25.10 - Atherosclerotic heart disease of [place] coronary artery without angina pectoris (6) Chronic kidney disease Current Visit: Yes Status: Chronic Qualifiers: Chronic kidney disease stage: stage 3 (moderate) Qualified Code(s): N18.3 - Chronic kidney disease, stage 3 (moderate) - Plan Admit patient to medical-surgical floor for CHF exacerbation. Will treat patient with IV Lasix and monitor here in the hospital. Will follow up with cardiology here in the hospital as well. Discharge Plan: Home Plan to discharge in: Greater than 2 days - Advance Directives Does patient have a Living Will: No Does patient have a Durable POA for Healthcare: No - Code Status/Comfort Care Code Status Assessed: Yes Critical Care: No
[2019-03-21] MEDS ORDERED: POTASSIUM CL SA 10 MEQ TAB PO ONE (17:25)
[2019-03-21] MEDS: FUROSEMIDE 40 MG/4 ML VIAL IV SCH (17:28)
[2019-03-21] MEDS ORDERED: HYDRALAZINE HCL 20 MG/ML VIAL IV PRN (17:35)
[2019-03-21 18:52] LABS: Urine Appearance CLEAR; Urine Color YELLOW
[2019-03-21 18:53] LABS: Urine Bilirubin NEGATIVE (NEG); Urine Blood NEGATIVE (NEG); Urine Glucose NEGATIVE (NEG); Urine Microscopic Reflex NO UMIC; Urine Protein NEGATIVE (NEG); Urine Urobilinogen 0.2 mg/dL (0.2-1.0)
[2019-03-21] MEDS ORDERED: PNEUMOCOCCAL VACCINE 0.5 ML IMVAC ONE (19:28)
[2019-03-21] MEDS: INSULIN -REGULAR HUMAN 50 UNIT/0.5 ML ML SQ SCH (21:00)
[2019-03-21] MEDS ORDERED: FAMOTIDINE 20 MG TAB PO PRN (23:46)
[2019-03-22] MEDS: GABAPENTIN 300 MG CAP PO SCH ×2 (00:32→20:25)
[2019-03-22] MEDS: MELATONIN 5 MG TABLET PO SCH ×2 (00:33→20:26)
[2019-03-22] MEDS: LEVOTHYROXINE SOD 0.025 MG TAB PO SCH (06:02)
[2019-03-22 06:12] LABS: Absolute Lymphocytes (CBC) 1.5 K/uL (0.7-4.9); Basophils % 1.1 % (0-1.3); Hematocrit 30.3 % (36.0-45.0); Lymphocytes % 21.5 % (15.3-44.8); MPV 7.5 fL (7.6-11.3); RBC Red Blood Cell Count 3.76 M/uL (3.86-4.86)
[2019-03-22 06:20] LABS: ALT/SGPT 16 U/L (12-78); AST/SGOT 16 U/L (15-37); Albumin 3.1 g/dL (3.4-5.0); Alkaline Phosphatase 74 U/L (45-117); BUN Blood Urea Nitrogen 6 mg/dL (7-18); Bicarbonate 29 mmol/L (21-32); Bilirubin Total 1.1 mg/dL (0.2-1.0); Glucose Level 86 mg/dL (74-106); Potassium 3.2 mmol/L (3.5-5.1); Protein, Total 6.5 g/dL (6.4-8.2); Sodium Level 140 mmol/L (136-145)
[2019-03-22] MEDS: INSULIN -REGULAR HUMAN 50 UNIT/0.5 ML ML SQ SCH ×4 (07:30→20:27)
[2019-03-22] MEDS: AZITHROMYCIN IV 500 MG in NA CHLORIDE 0.9% 250 ML IVPB SCH (08:51)
[2019-03-22] MEDS: CEFTRIAXONE/SWI 1gm 1 GM/10 ML SYR IVP SCH (08:52)
[2019-03-22] MEDS: APIXABAN 5 MG TABLET PO SCH ×2 (08:52→20:25)
[2019-03-22] MEDS: FUROSEMIDE 40 MG/4 ML VIAL IV SCH ×2 (08:52→16:10)
[2019-03-22] MEDS ORDERED: CEFTRIAXONE 1 GM/NS 50 ML 1 GM/50 ML BAG IV SCH (09:00)
[2019-03-22] MEDS ORDERED: ENOXAPARIN 40 MG/0.4 ML SQ SCH (09:00)
[2019-03-22] MEDS ORDERED: POTASSIUM CL SA 10 MEQ TAB PO ONE ×2 (09:00→17:59)
[2019-03-22] MEDS ORDERED: PNEUMOCOCCAL VACCINE 0.5 ML IMVAC ONE (10:00)
--- NOTE | 2019-03-22 11:02 | RAD REPORT ---
EXAM DESCRIPTION: RAD - Chest Pa And Lat (2 Views) - 03/22/2019 6:41 am CLINICAL HISTORY: Pulmonary Edema Chest pain. COMPARISON: Chest Pa And Lat (2 Views) dated 03/21/2019; Chest Single View dated 01/13/2019; Chest Sin gle View dated 11/25/2018; CHEST PA AND LAT 2 VIEW dated 07/04/2007 FINDINGS: Mild improvement is seen in lung aeration since yesterday's examination. Reduction in the size of the pleural effusions is noted mildly. The heart remains mildly enlarged with sternotomy wire s present. No displaced fractures. IMPRESSION: Mild improvement in lung aeration since comparative study.
[2019-03-22] MEDS ORDERED: GABAPENTIN 300 MG CAP PO SCH (12:00)
[2019-03-22] MEDS ORDERED: LEVOMEFOLATE CALCIUM 15 MG PO SCH ×2 (12:00→21:00)
[2019-03-22] MEDS ORDERED: DULOXETINE 20 MG CAP PO SCH ×2 (12:00→21:00)
--- NOTE | 2019-03-22 13:31 | CON ---
Chief Complaint: Shortness of breath. History Of Present Illness: Mrs. Dey is a woman, who has paroxysmal AFib, history of coronary by pass surgery and diastolic dysfunction causing occasional episodes of pulmonary edema. She also has dyslipidemia, hypothyroidism, diabetes, hypertension. Her outpatient medications have been Crestor 2 0, nebivolol 10 mg at bedtime, melatonin, levothyroxine, high-dose methyl folate, insulin, gabapentin , famotidine, duloxetine, Plavix, Eliquis 5 b.i.d., and amlodipine 10 mg per day. She was feeling mo re short of breath than usual, came to the hospital, has evidence of interstitial pulmonary edema, wh ich is better today after diuresis. She was found to be in atrial fib. She has been some of her barber e in normal rhythm. We have EKGs demonstrating that she goes back and forth between AFib and sinus r hythm fairly frequently. That is the reason she is on Eliquis of course, but I think she might be we ll served by having us stop her nebivolol and give her Betapace in its place with the idea that we wi ll try and change her to sinus rhythm and keep her in sinus rhythm. Thank you very much for your kind referral of Mrs. Dey. I will follow her with you. ALLEY/LADONNA Voice ID: [id number] Report ID: [id number]
[2019-03-22] MEDS: AMLODIPINE 5 MG TAB PO SCH (13:42)
--- NOTE | 2019-03-22 14:06 | P.PN ---
Subjective Date of Service: 03/22/19 Primary Care Provider: Dr. Zurita Chief Complaint: Dyspnea Subjective: No new changes, Improving Physical Examination - Vital Signs Temperature: 97.8 F Blood Pressure: 161/70 Pulse: 104 Respirations: 20 Pulse Ox (%): 92 - Physical Exam General: Alert, In no apparent distress HEENT: Atraumatic, Normocephalic Neck: Supple, 2+ carotid pulse no bruit Respiratory: Clear to auscultation bilaterally, Normal air movement Cardiovascular: Irregular heart rate/rhythm Capillary refill: <2 Seconds Gastrointestinal: Normal bowel sounds, Soft and benign Musculoskeletal: No clubbing, No swelling Integumentary: No rashes Neurological: Normal speech, Normal strength at 5/5 x4 extr Lymphatics: No axilla or inguinal lymphadenopathy Urinary: Other (no bladder distention ) External genitalia: Deferred Rectal: Deferred - Studies Microbiology Data (last 24 hrs): 03/21/19 12:05 Nasopharnyx Influenza Type A Antigen Screen - Final 03/21/19 12:05 Nasopharnyx Influenza Type B Antigen Screen - Final Assessment & Plan - Problems (Diagnosis) (1) Bilateral pleural effusion Current Visit: Yes Status: Acute Plan: Bilateral pleural fusion most likely secondary to CHF exacerbation on IV Lasix at this time CT scan : bilateral pleural effusion and interstitial opacity most likely pulmonary edema however post viral pneumonia cannot be ruled out on Rocephin and azithromycin (2) CHF exacerbation Current Visit: Yes Status: Acute Plan: Acute on chronic congestive heart failure most likely secondary to diastolic dysfunction on IV Lasix strict input and output fluid restriction along with daily weights echocardiogram cardiology consulted. Appreciate recommendations Qualifiers: Heart failure type: diastolic Qualified Code(s): I50.33 - Acute on chronic diastolic (congestive) heart failure (3) CAD (coronary artery disease) Current Visit: Yes Status: Chronic Plan: Continue home medications and titrate as needed Qualifiers: Coronary Disease-Associated Artery/Lesion type: [place] artery [place] vs. transplanted heart: [place] heart Associated angina: without angina Qualified Code(s): I25.10 - Atherosclerotic heart disease of [place] coronary artery without angina pectoris (4) Chronic kidney disease Current Visit: Yes Status: Chronic Plan: Continue home medications and titrate as needed Monitor renal parameters Qualifiers: Chronic kidney disease stage: stage 3 (moderate) Qualified Code(s): N18.3 - Chronic kidney disease, stage 3 (moderate) (5) Diabetes Current Visit: Yes Status: Chronic Plan: Continue home medications and titrate as needed Qualifiers: Diabetes mellitus type: type 2 Diabetes mellitus jail insulin use: with middle or intermediate 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 Diabetes mellitus complication status: without complication Qualified Code(s): E11.9 - Type 2 diabetes mellitus without complications; Z79.4 - o[place] (current) use of insulin (6) Hypertension Current Visit: Yes Status: Chronic Plan: Continue home medications and titrate as needed Qualifiers: Hypertension type: essential hypertension Qualified Code(s): I10 - Essential (primary) hypertension (7) Afib Current Visit: Yes Status: Chronic Plan: Monitor under telemetry Appreciate recommendations by Cardiology Nebivlol changed to Betapace Qualifiers: Atrial fibrillation type: paroxysmal Qualified Code(s): I48.0 - Paroxysmal atrial fibrillation Discharge Plan: Home Plan to discharge in: 48 Hours Time Spent Managing Pts Care (In Minutes): 46
[2019-03-22] MEDS ORDERED: ROSUVASTATIN 10 MG TAB PO SCH (18:00)
[2019-03-22] MEDS ORDERED: CLOPIDOGREL 75 MG TABLET PO SCH (18:00)
[2019-03-22] MEDS: SOTALOL HCL 80 MG TAB PO SCH (18:09)
[2019-03-22] MEDS ORDERED: NEBIVOLOL HCL 5 MG TAB PO SCH (21:00)
[2019-03-23 02:16] VITALS: O2SAT 97
[2019-03-23 07:08] LABS: Absolute Lymphocytes (CBC) 1.5 K/uL (0.7-4.9); Basophils % 1.2 % (0-1.3); Hematocrit 30.9 % (36.0-45.0); Lymphocytes % 21.8 % (15.3-44.8); MPV 7.6 fL (7.6-11.3); RBC Red Blood Cell Count 3.82 M/uL (3.86-4.86)
[2019-03-23] MEDS: LEVOTHYROXINE SOD 0.025 MG TAB PO SCH (07:13)
[2019-03-23] MEDS: SOTALOL HCL 80 MG TAB PO SCH (07:13)
[2019-03-23 07:21] LABS: ALT/SGPT 13 U/L (12-78); AST/SGOT 12 U/L (15-37); Albumin 3.1 g/dL (3.4-5.0); Alkaline Phosphatase 67 U/L (45-117); BUN Blood Urea Nitrogen 9 mg/dL (7-18); Bicarbonate 31 mmol/L (21-32); Bilirubin Total 0.6 mg/dL (0.2-1.0); Glucose Level 126 mg/dL (74-106); Potassium 3.5 mmol/L (3.5-5.1); Protein, Total 6.3 g/dL (6.4-8.2); Sodium Level 142 mmol/L (136-145)
[2019-03-23] MEDS: INSULIN -REGULAR HUMAN 50 UNIT/0.5 ML ML SQ SCH (07:30)
[2019-03-23 08:06] VITALS: BP 136/66; TEMP 97.8
[2019-03-23] MEDS ORDERED: POTASSIUM CL SA 10 MEQ TAB PO ONE (09:00)
[2019-03-23] MEDS: AMLODIPINE 5 MG TAB PO SCH (09:26)
[2019-03-23] MEDS: APIXABAN 5 MG TABLET PO SCH (09:26)
[2019-03-23] MEDS: CEFTRIAXONE/SWI 1gm 1 GM/10 ML SYR IVP SCH (09:28)
[2019-03-23] MEDS: FUROSEMIDE 40 MG/4 ML VIAL IV SCH (09:30)
[2019-03-23] MEDS: AZITHROMYCIN IV 500 MG in NA CHLORIDE 0.9% 250 ML IVPB SCH (09:32)
--- NOTE | 2019-03-23 10:32 | P.DS ---
Admission Date: 03/21/19 Discharge Date: 03/23/19 Primary Care Provider: Dr. Zurita Disposition: ROUTINE DISCHARGE Discharge Condition: GOOD Reason for Admission: Dyspnea - Problems (1) Bilateral pleural effusion Status: Acute (2) CHF exacerbation Status: Acute Qualifiers: Heart failure type: diastolic Qualified Code(s): I50.33 - Acute on chronic diastolic (congestive) heart failure (3) CAD (coronary artery disease) Status: Chronic Qualifiers: Coronary Disease-Associated Artery/Lesion type: [place] artery [place] vs. transplanted heart: [place] heart Associated angina: without angina Qualified Code(s): I25.10 - Atherosclerotic heart disease of [place] coronary artery without angina pectoris (4) Chronic kidney disease Status: Chronic Qualifiers: Chronic kidney disease stage: stage 3 (moderate) Qualified Code(s): N18.3 - Chronic kidney disease, stage 3 (moderate) (5) Diabetes Status: Chronic Qualifiers: Diabetes mellitus type: type 2 Diabetes mellitus long term care administrator insulin use: with long term care administrator use Diabetes mellitus complication status: without complication Qualified Code(s): E11.9 - Type 2 diabetes mellitus without complications; 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 Patient stated that she was working with physical therapy today and started having some shortness of breath at that time when they measure her oxygenation her oxygen level was down to 82% and the she decided to come to the ER. Patient has also been noticing some bilateral lower extremity edema and has not been unable to lay flat in her bed for past couple of days as well. Patient stated that her symptoms are getting progressively worse. Patient also of note had viral upper respiratory infection about 3 days ago that she got from her granddaughter who is 4 years of age. Patient stated that she has been having some low-grade fever and chills at the house as well. No other associated symptoms at this time. Patient has not taken any medications at home at this time Hospital Course: She was admitted and was monitored closely under telemetry. She was found to have Acute on chronic congestive heart failure most likely secondary to diastolic dysfunction and was treated with IV Lasix along with strict input and output fluid restriction along with daily weights. She also underwent an echocardiogram and a cardiology consult Also found to have Bilateral pleural fusion most likely secondary to CHF exacerbation CT scan : bilateral pleural effusion and interstitial opacity most likely pulmonary edema however post viral pneumonia cannot be ruled out , hence was started on Rocephin and azithromycin . Continued home medications and titrate as needed She was also found to be in AFib with RVR and cardiology recommended adding on Betapace instead of other beta-blockers She wanted to go home and is being discharged home today in stable condition with advice to follow up with PCP in 1 week and also with Cardiology 1 to 2 weeks Vital Signs/Physical Exam: Temp Pulse Resp BP Pulse Ox 97.8 F 69 20 136/66 91 03/23/19 08:00 03/23/19 09:30 03/23/19 08:00 03/23/19 09:30 03/23/19 08:00 General: Alert, In no apparent distress HEENT: Atraumatic, Normocephalic Neck: Supple Respiratory: Clear to auscultation bilaterally Cardiovascular: Irregular heart rate/rhythm Gastrointestinal: Soft and benign Neurological: Normal strength at 5/5 x4 extr Laboratory Data at Discharge: WBC 6.9 K/uL (4.3-10.9) 03/23/19 06:57 Hgb 10.2 g/dL (12.0-15.0) L 03/23/19 06:57 Hct 30.9 % (36.0-45.0) L 03/23/19 06:57 Plt Count 276 K/uL (152-406) 03/23/19 06:57 PT 21.6 SECONDS (9.5-12.5) H 03/21/19 12:05 INR 1.88 03/21/19 12:05 Sodium 142 mmol/L (136-145) 03/23/19 06:57 Potassium 3.5 mmol/L (3.5-5.1) 03/23/19 06:57 BUN 9 mg/dL (7-18) 03/23/19 06:57 Creatinine 0.57 mg/dL (0.55-1.3) 03/23/19 06:57 Glucose 126 mg/dL (74-106) H 03/23/19 06:57 Phosphorus 4.6 mg/dL (2.5-4.9) 03/23/19 06:57 Magnesium 2.1 mg/dL (1.8-2.4) D 03/21/19 12:05 Total Bilirubin 0.6 mg/dL (0.2-1.0) 03/23/19 06:57 AST 12 U/L (15-37) L 03/23/19 06:57 ALT 13 U/L (12-78) 03/23/19 06:57 Alkaline Phosphatase 67 U/L (45-117) 03/23/19 06:57 Home Medications: Amlodipine [Norvasc*] 10 mg PO DAILY 03/21/19 Apixaban [Eliquis] 5 mg PO BID 03/21/19 Duloxetine [Cymbalta *] 20 mg PO BEDTIME 03/21/19 Duloxetine [Cymbalta *] 20 mg PO NOON 03/21/19 Famotidine 20 mg PO PRN PRN 03/21/19 Gabapentin 600 mg PO BEDTIME PRN 03/21/19 Gabapentin 900 mg PO BEDTIME 03/21/19 Gabapentin 900 mg PO NOON 03/21/19 Insulis Lispro MIX 75/25 [Humalog Mix 75/25*] 25 units SQ NOON 03/21/19 Levomefolate Calcium [l-Methylfolate] 15 mg PO BEDTIME 03/21/19 Levomefolate Calcium [l-Methylfolate] 15 mg PO NOON 03/21/19 Levothyroxine Sodium 25 mcg PO [id number] 03/21/19 Melatonin 10 mg PO BEDTIME 03/21/19 Rosuvastatin Calcium 20 mg PO DAILY 6PM 03/21/19 Amlodipine [Norvasc*] 5 mg PO DAILY tab 03/23/19 Apixaban [Eliquis] 5 mg PO BID tablet 03/23/19 Duloxetine [Cymbalta *] 20 mg PO BEDTIME cap 03/23/19 Duloxetine [Cymbalta *] 20 mg PO NOON cap 03/23/19 Furosemide [Lasix 40 MG INJ*] 40 mg IV BIDL vial 03/23/19 Insulin -Regular Human [Novolin -R*] See Protocol SQ ACHS ml 03/23/19 Levomefolate Calcium [l-Methylfolate] 15 mg PO BEDTIME 03/23/19 Levomefolate Calcium [l-Methylfolate] 15 mg PO NOON 03/23/19 Melatonin 10 mg PO BEDTIME tablet 03/23/19 Pharmacy Consult 1 ea XX DAILYPRN PRN each 03/23/19 Rosuvastatin [Crestor*] 20 mg PO DAILY 6PM tab 03/23/19 Sotalol HCl [Betapace*] 80 mg PO BID 6AM 6PM #60 tab 03/23/19 New Medications: Sotalol HCl [Betapace*] 80 mg PO BID 6AM 6PM #60 tab Diet: AHA Activity: Ad chalo Followup: Jorje Patricia MD [ACTIVE - CAN ADMIT] - 1 Week (Please call to make an appointment. )
--- NOTE | 2019-03-23 11:12 | PN ---
Mrs. Dey has tolerated Betapace well, is not a renal failure patient. We will substitute Betapac e for nebivolol. She is still in AFib, so we will continue the Eliquis and in a few weeks if she is still in AFib after being on Betapace that long, we will consider a cardioversion. She is asymptomat ic with her AFib, so perhaps the better therapy would be to just follow up strategy of rate control a nd anticoagulation. ALLEY/LADONNA Voice ID: [id number] Report ID: [id number]
[2019-03-23 13:52] LABS: C.diff Antigen/Toxin Ag neg : Tox neg (NEG : NEG)
== END 2019-03-23 11:50 | disposition home or self-care (01) | DRG 291 ==
LOC: ER 10:51 → OBSVTOIN 14:29 → ERHOLD 14:29 → 2ND 16:26
PROVIDERS: ADMIT Family Medicine; ATTEND Family Medicine
DX: I13.0 Hypertensive heart and chronic kidney disease with heart failure and stage 1 through stage 4 chronic kidney disease, or unspecified chronic kidney disease (principal); I50.33 Acute on chronic diastolic (congestive) heart failure; J12.9 Viral pneumonia, unspecified; N18.3 Chronic kidney disease, stage 3 (moderate); E11.22 Type 2 diabetes mellitus with diabetic chronic kidney disease; I25.10 Atherosclerotic heart disease of native coronary artery without angina pectoris; I48.0 Paroxysmal atrial fibrillation; E78.5 Hyperlipidemia, unspecified; E03.9 Hypothyroidism, unspecified; Z95.1 Presence of aortocoronary bypass graft; Z79.4 Long term (current) use of insulin
CPT/HCPCS: 36415; 71046; 71275; 80048; 80053; 80076; 81003; 81015; 82947; 83605; 83735; 83880; 84100; 84132; 84145; 84484; 85025; 85379; 85610; 87040; 87324; 87449; 87804; 87807; 93005; 93306; 94760; 96374; 97112; 97116; 97161; 99285; J0360; J0456; J0696; J1940; J7030; Q9967

== ENCOUNTER 2021-01-06 19:36 | Emergency (ER) | payer OTHER ==
--- OUTSIDE RECORDS SUMMARY | 2021-01-06 19:42 | XMS REPORT | Continuity of Care Document ---
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 00 Center Acute Acute Disease Active [facility] - failure failure 00:00: Medical superimpos superimpos 00 Ce nter ed on ed on chronic chronic kidney kidney disease disease Anuria Anuria Disease Active [facility] Acute Acute Disease Active [address] [facility] tubular tubular 11-26 [facility] - necrosis necrosis 00:00: Medica l 00 Center Hyperkalem Hyperkalem Disease Active [address] ia ia 11-26 [facility] - [facility] Medical [facility] Center Metabolic Metabolic Disease Active 2019- [facility] acidemia acidemia 11-[facility] Medical 00 Center Herpes Herpes Disease Active 2019- [facility] zoster zoster 11-26 [facility] - 00:[facility] Medical 00 Center Hyperglyce Problem Active 2019-01-19 M emoria inna due to 23:16:58 l type 2 [place] diabetes Hyperglyce mellitus inna due to (disorder) type 2 diabetes mellitus (disorder) Active Problem 01/19/2019 [facility] Group Hypothyroi Problem Active 2019-01-19 M emoria dism 23:16:58 l (disorder) Isidro n Hypothyroi dism (disorder) Active Problem 01/19/2019 Medical Group Peripheral Problem Active 2019-01-19 M emoria nerve 23:16:58 l disease [place] (disorder) Peripheral nerve disease (disorder) Active Problem 01/19/2019 Medical Group ESRD (end ESRD (end Disease Active [facility] stage stage [facility] - renal renal Medical disease) disease) Center Allergies, Adverse Reactions, Alerts This patient has no known allergies or adverse reactions. Social History Social Habit Start Date Stop Date Quantity Comments Source History [facility] Alcohol Std Drinks [facility] History [facility] - Alcohol Binge Medical [address] [facility] Sex Assigned At [facility] ([facility]3]luz elena [facility] Social History 2019-01-17 2019-01-17 [facility] 19:17:26 19:17:26 History [facility] 2018-11-29 2018-11-[address] [facility] - Alcohol Frequency 00:00:00 00:00:00 [facility] Cigarettes smoked 2018-11-29 2018-11-[address] [facility] - current [facility]pack per [facility] - Reported Cigarette 2018-11-29 2018-11-[address] [facility] - pack-years 00:00:00 00:00:00 [facility] Tobacco use and 2018-11-29 2018-11-29 Never used [facility] Ani kes - exposure 00:00:00 00:00:00 [facility] Alcohol intake 2018-11-29 2018-11-[address] [facility] [address] Lisa es - 00:00:00 00:00:00 non-drinker of Medical Ce nter alcohol (finding) History of tobacco 2018-11-22 [facility] sm[facility] use 00[facility]00 [facility] Smoking Status Start Date Stop Date Source Former smoker 2018-11-29 00:00:00 2018-11-29 00:00:[address] [facility] [address] [facility] Medications Ordered Filled Start Stop Current Ordering Indication Dosage Frequency Signature Comments Components Source Medication Medication Date Date Medication? Clinician (SIG) Name Name apixaban 5 2019-0 Yes 5 mg, PO, Me moria MG Oral 9-13 Q12H, 0 l Tablet 19:22: Refill(s) Isidro n [Eliquis] 00 gabapentin Yes 600 mg = 1 M emoria 600 MG Oral 9-13 tab, PO, l Tablet 19:22: Daily, 0 [place] 00 Refill(s) zinc Yes 220 mg = 1 Memoria sulfate 220 9-13 tab, PO, l mg oral 19:22: Daily, # Isidro n tablet 00 100 tab, 0 Refill(s) Nephro-Coleman 0 Yes 1 tab, PO, Memoria 9-13 Daily, 0 l 19:22: Refill(s) [place] 00 rosuvastati Yes 20 mg = 1 M emoria n 20 mg 9-13 tab, PO, l oral tablet 19:22: Bedtime, # [place] 00 30 tab, 0 Refill(s) clopidogrel Yes 75 mg = 1 M emoria 75 MG Oral 9-13 tab, PO, l Tablet 19:22: Daily, # [place] [Plavix] 00 30 tab, 0 Refill(s) Melatonin Yes 10 mg, PO, Me moria 9-13 Bedtime, 0 l 19:22: Refill(s) [place] 00 nebivolol Yes 10 mg = 1 Mem oria 10 MG Oral 9-13 tab, PO, l Tablet 19:22: Daily, # [place] [Bystolic] 00 30 tab, 0 Refill(s) Famotidine Yes 20 mg = 1 Me moria 20 MG Oral 9-13 tab, PO, l Tablet 19:22: PRN, 0 Refill(s) levothyroxi Yes 25 Memori a ne 25 mcg 9-13 microgram l (0.025 mg) 19:22: = 1 tab, Her floyd oral tablet 00 PO, Daily, # 30 tab, 0 Refill(s) Amlodipine Yes 10 mg, PO, M emoria 9-13 Daily, 0 l 19:22: Refill(s) Jaiden folic 0 Yes 1{tbl} QD Take [address] acid-multiv 8-02 tablet by Lisa es - itamins 00:00: mouth Medical (NEPHRO-VIT 00 daily. Center E) 0.8 mg Tab tablet cholecalcif 2019-0 Yes [id number] Q7D Take [facility] frank, 8 25,000 [facility] - vitamin D3, 17:42: Units by Tn dical 50,000 unit 48 mouth once Ce nter Tab a week. zolpidem 2019- Yes 10mg Take [address] (AMBIEN) 10 12-05 by mouth Luke s - mg tablet 17:42: every Medical 48 night as Center needed for Insomnia. rosuvastati 2019-0 Yes 20mg QD Take [address] n (CRESTOR) 12-05 by mouth Luke s - 20 MG 17:42: daily. Medical tablet 48 Center traMADol 2019- Yes 50mg Take [address] (ULTRAM) 50 12-05 by mouth Luke s - mg tablet 17:42: every 6 Medic al 48 (six) Center hours as needed for Pain. clopidogrel 2019- Yes 75mg QD Take [address] (PLAVIX) 75 12-05 by mouth Luke s - mg tablet 17:42: daily. Medica l 48 Center gabapentin Yes 300mg Q.5D Take 0.[address] (NEURONTIN) 8 tablets [facility]ukes - 600 MG 00:00: (300 mg Medical tablet 00 total) by Center mouth 2 (two) times daily. apixaban 20190 Yes 5mg Q.5D Take [address] (ELIQUIS) 5 12-05 tablet (5 Lisa es - mg Tab 00:00: mg total) Medica l tablet 00 by mouth 2 Center (two) times daily. famotidine 2019 Yes 20mg Q.5D Take 1 [facility] t (PEPCID) 20 - tablet (20 Ani kes - MG tablet 00:00: mg total) Med ical 00 by mouth 2 Center (two) times daily. melatonin 5 2019 Yes 5mg QD Take [address] mg Tab 8- tablet (5 [facility]ukes - tablet 00:00: mg total) Medica l 00 by mouth Center nightly. Immunizations Ordered Immunization Filled Immunization Date Status Commen ts Source Name Name Pneumococcal 2018-11-[address] [facility] - Conjugate (Prevnar) 00:00:00 Medic al Center 13-Valent Vital Signs Vital Name Observation Time Observation Value Comments Source Systolic (mm Hg) 2019-01-17 19:11:00 Luis Angel rial [place] Diastolic (mm Hg) 2019-01-17 19:11:00 Mem orial [place] Heart Rate 2019-01-17 19:11:00 [facility] [place] Temperature Oral (F) 2019-01-17 19:11:00 98.8 F [facility] [place] Height 2019-01-17 19:11:00 160.02 cm [facility] Weight 2019-01-17 19:11:00 [facility] BMI Calculated 2019-01-17 19:11:00 Memori al [place] Procedures This patient has no known procedures. Plan of Care Planned Activity Planned Date Details Comments Source Future Scheduled 2020-01-06 INFLUENZA VACCINE (#1) [facility] Test 00:00:00 [code = INFLUENZA Medical Ce nter VACCINE (#1)] Future Scheduled 2019-11-30 PNEUMOCOCCAL 65+ Y[facility] - Test 00:00:00 (2 of 2 - PPSV23) Medical Ce nter [code = PNEUMOCOCCAL 65+ YRS (2 of 2 - PPSV23)] Future Scheduled [address] [facility] - Test 00:00:00 [facility] breast (procedure) [code = 683492449] Future Scheduled [address] [facility] - Test 00:00:00 [facility] colon (procedure) [code = 524487782] Encounters Start End Encounter Admission Attending Care Care Encounter Source Date/Time Date/Time Type Type Clinicians Facility Department ID 2019-01-17 2019-01-18 Outpatient nullFlavo [facility] [id number] Memoria 18:50:00 04:59:59 r Primary 01 l Care [place] 2019-01-17 2019-01-17 Outpatient Jossy, [facility] [id number] 13:50:00 23:59:59 Edward 01 Diego 2019-01-17 2019-01-17 Outpatient RONA JESSICA [id number] Memoria 13:50:00 13:50:00 01 l [place] Results Test Description Test Time Test Comments Results Result Comments Source URINE CULTURE 2019-04-22 14:14:00 Test Item Value Reference Range Interpretation Comme nts CULTURE (BEAKER) (test code = KLEBSIELLA PNEUMONIAE A >100,000 col/mL Klebsiella 1095) pneumoniae Amikacin (test code = 1) S Ampicillin + Sulbactam (test code S = 6) Aztreonam (test code = 32) S Cefepime (test code = 51) S Cefoxitin (test code = 68) S Ceftazidime (test code = 27) S Ceftriaxone (test code = 52) S Ertapenem (test code = 38) S Gentamicin (test code = 18) S Levofloxacin (test code = 22) S Meropenem (test code = 34) S Nitrofurantoin (test code = 23) I Piperacillin + Tazobactam (test S code = 29) Tetracycline (test code = 2) R Tobramycin (test code = 25) S Trimethoprim + Sulfamethoxazole R (test code = 47) URINE IMMUNOFIXATION, [id number] 09:34:00 Test Item Value Reference Range Interpretation Comments PROTEIN, URINE 66 mg/dL 0-14 H ([employer]) (test code = 1569) ALBUMIN URINE ELP 38.9 % (BEAKER) (test code = 1018) GAMMA GLOBULIN URINE 61.1 % (BEAKER) (test code = 1015) URINE MARKEL ID-[id number] Non-specific band ([employer]) (test code identified. No evidence = 2602) of IGG, IGM, or IGA immunoglobulin with light chain restriction. Clinical correlation is recommended. [id number] Aaron Hopper MD (electronic ([employer]) (test code signature) = 2603) POCT-GLUCOSE [id number] 12:36:00 Test Item Value Reference Range Interpretation Comments POC-GLUCOSE METER 178 mg/dL 70-110 H TESTED AT [facility] 6720 ([employer]) (test code = [address] [place] 1538) [id number] POCT-GLUCOSE [id number] 08:06:00 Test Item Value Reference Range Interpretation Comments POC-GLUCOSE METER 145 mg/dL 70-110 H TESTED AT [facility] [address] ([employer]) (test code = [address] [place] 1538) [id number] BASIC METABOLIC [id number] 07:28:00 Test Item Value Reference Range Interpretation Comments SODIUM (BEAKER) 140 meq/L 136-145 (test code = 381) POTASSIUM (BEAKER) 3.7 meq/L 3.5-5.1 (test code = 379) CHLORIDE (BEAKER) 108 meq/L 98-107 H (test code = 382) CO2 (BEAKER) (test 24 meq/L 22-29 code = 355) BLOOD UREA NITROGEN 31 mg/dL 7-21 H (BEAKER) (test code = 354) CREATININE (BEAKER) 1.96 mg/dL 0.57-1.25 H (test code = 358) GLUCOSE RANDOM 139 mg/dL 70-105 H (BEAKER) (test code = 652) CALCIUM (BEAKER) 9.9 mg/dL 8.4-10.2 (test code = 697) EGFR (BEAKER) (test 25 mL/min/1.73 ESTIMA FLORENCE GFR IS code = 1092) sq m NOT ACCURATE CREATININE CLEARANCE IN PREDICTING GLOMERULAR FILTRATION RATE . ESTIMATED GFR I S NOT APPLICABLE FOR DIALYSIS PATIEN TS. [id number] 07:14:00 Test Item Value Reference Range Interpretation Comments PHOSPHORUS (BEAKER) (test code = 3.4 mg/dL 2.3-4.7 604) [id number] 07:14:00 Test Item Value Reference Range Interpretation Comments MAGNESIUM (BEAKER) (test code = 1.8 mg/dL 1.6-2.6 627) [id number] 06:41:00 Test Item Value Reference Range Interpretation Comments PARTIAL THROMBOPLASTIN TIME 27.7 seconds 22.5-36.0 (BEAKER) (test code = 760) CBC W/PLT COUNT & AUTO [id number] 06:30:00 Test Item Value Reference Range Interpretation Comments WHITE BLOOD CELL COUNT (BEAKER) 7.6 K/ L 3.5-10.5 (test code = 775) RED BLOOD CELL COUNT (BEAKER) 3.08 M/ L 3.93-5.22 L (test code = 761) HEMOGLOBIN (BEAKER) (test code = 9.3 GM/DL 11.2-15.7 L 410) HEMATOCRIT (BEAKER) (test code = 30.2 % 34.1-44.9 L 411) MEAN CORPUSCULAR VOLUME (BEAKER) 98.1 fL 79.4-94.8 H (test code = 753) MEAN CORPUSCULAR HEMOGLOBIN 30.2 pg 25.6-32.2 (BEAKER) (test code = 751) MEAN CORPUSCULAR HEMOGLOBIN CONC 30.8 GM/DL 32.2-35.5 L (BEAKER) (test code = 752) RED CELL DISTRIBUTION WIDTH 14.3 % 11.7-14.4 (BEAKER) (test code = 412) PLATELET COUNT (BEAKER) (test 299 K/CU MM 150-450 code = 756) MEAN PLATELET VOLUME (BEAKER) 9.7 fL 9.4-12.3 (test code = 754) NUCLEATED RED BLOOD CELLS 0 /100 WBC 0-0 (BEAKER) (test code = 413) NEUTROPHILS RELATIVE PERCENT 71 % (BEAKER) (test code = 429) LYMPHOCYTES RELATIVE PERCENT 17 % (BEAKER) (test code = 430) MONOCYTES RELATIVE PERCENT 8 % (BEAKER) (test code = 431) EOSINOPHILS RELATIVE PERCENT 2 % (BEAKER) (test code = 432) BASOPHILS RELATIVE PERCENT 1 % (BEAKER) (test code = 437) NEUTROPHILS ABSOLUTE COUNT 5.43 K/ L 1.56-6.13 (BEAKER) (test code = 670) LYMPHOCYTES ABSOLUTE COUNT 1.27 K/ L 1.18-3.74 (BEAKER) (test code = 414) MONOCYTES ABSOLUTE COUNT (BEAKER) 0.63 K/ L 0.24-0.36 H (test code = 415) EOSINOPHILS ABSOLUTE COUNT 0.12 K/ L 0.04-0.36 (BEAKER) (test code = 416) BASOPHILS ABSOLUTE COUNT (BEAKER) 0.07 K/ L 0.01-0.08 (test code = 417) IMMATURE GRANULOCYTES-RELATIVE 1 % 0-1 PERCENT (BEAKER) (test code = 2801) POCT-GLUCOSE [id number] 21:51:00 Test Item Value Reference Range Interpretation Comments POC-GLUCOSE METER 142 mg/dL 70-110 H TESTED AT [facility] [address] (BEAKER) (test code = [address] 1538) [id number] POCT-GLUCOSE [id number] 18:00:00 Test Item Value Reference Range Interpretation Comments POC-GLUCOSE METER 139 mg/dL 70-110 H TESTED AT [facility] [address] (BEAKER) (test code = [address] 1538) [id number] POCT-GLUCOSE [id number] 13:00:00 Test Item Value Reference Range Interpretation Comments POC-GLUCOSE METER 166 mg/dL 70-110 H TESTED AT [facility] [address] (BEAKER) (test code = [address] 1538) [id number] POCT-GLUCOSE [id number] 09:00:00 Test Item Value Reference Range Interpretation Comments POC-GLUCOSE METER 151 mg/dL 70-110 H TESTED AT [facility] [address] (BEAKER) (test code = [address] [place] 1538) [id number] COMPREHENSIVE METABOLIC [id number] 06:08:00 Test Item Value Reference Range Interpretation Comments TOTAL PROTEIN 6.6 gm/dL 6.0-8.3 (BEAKER) (test code = 770) ALBUMIN (BEAKER) 3.9 g/dL 3.5-5.0 (test code = 1145) ALKALINE PHOSPHATASE 64 U/L 40-150 (BEAKER) (test code = 346) BILIRUBIN TOTAL 0.4 mg/dL 0.2-1.2 (BEAKER) (test code = 377) SODIUM (BEAKER) (test 139 meq/L 136-145 code = 381) POTASSIUM (BEAKER) 3.2 meq/L 3.5-5.1 L (test code = 379) CHLORIDE (BEAKER) 106 meq/L 98-107 (test code = 382) CO2 (BEAKER) (test 24 meq/L 22-29 code = 355) BLOOD UREA NITROGEN 34 mg/dL 7-21 H (BEAKER) (test code = 354) CREATININE (BEAKER) 2.31 mg/dL 0.57-1.25 H (test code = 358) GLUCOSE RANDOM 142 mg/dL 70-105 H (BEAKER) (test code = 652) CALCIUM (BEAKER) 9.3 mg/dL 8.4-10.2 (test code = 697) AST (SGOT) (BEAKER) 25 U/L 5-34 (test code = 353) ALT (SGPT) (BEAKER) 29 U/L 6-55 (test code = 347) EGFR (BEAKER) (test 21 mL/min/1.73 ESTIMA FLORENCE GFR IS code = 1092) sq m NOT ACCURATE CREATININE CLEARANCE IN PREDICTING GLOMERULAR FILTRATION RATE . ESTIMATED GFR I S NOT APPLICABLE FOR DIALYSIS PATIMICH TS. [id number] 06:03:00 Test Item Value Reference Range Interpretation Comments PHOSPHORUS (BEAKER) (test code = 3.1 mg/dL 2.3-4.7 604) [id number] 06:03:00 Test Item Value Reference Range Interpretation Comments MAGNESIUM (BEAKER) (test code = 1.9 mg/dL 1.6-2.6 627) [id number] 05:01:00 Test Item Value Reference Range Interpretation Comments PARTIAL THROMBOPLASTIN TIME 82.6 seconds 22.5-36.0 H (BEAKER) (test code = 760) CALCIUM, [id number] 04:52:00 Test Item Value Reference Range Interpretation Comments CALCIUM IONIZED (BEAKER) (test 1.17 mmol/L 1.12-1.27 code = 698) PH, BLOOD (BEAKER) (test code = 7.43 1810) CBC W/PLT COUNT & AUTO [id number] 04:46:00 Test Item Value Reference Range Interpretation Comments WHITE BLOOD CELL COUNT (BEAKER) 6.1 K/ L 3.5-10.5 (test code = 775) RED BLOOD CELL COUNT (BEAKER) 2.73 M/ L 3.93-5.22 L (test code = 761) HEMOGLOBIN (BEAKER) (test code = 8.3 GM/DL 11.2-15.7 L 410) HEMATOCRIT (BEAKER) (test code = 26.7 % 34.1-44.9 L 411) MEAN CORPUSCULAR VOLUME (BEAKER) 97.8 fL 79.4-94.8 H (test code = 753) MEAN CORPUSCULAR HEMOGLOBIN 30.4 pg 25.6-32.2 (BEAKER) (test code = 751) MEAN CORPUSCULAR HEMOGLOBIN CONC 31.1 GM/DL 32.2-35.5 L (BEAKER) (test code = 752) RED CELL DISTRIBUTION WIDTH 14.1 % 11.7-14.4 (BEAKER) (test code = 412) PLATELET COUNT (BEAKER) (test 258 K/CU MM 150-450 code = 756) MEAN PLATELET VOLUME (BEAKER) 9.2 fL 9.4-12.3 L (test code = 754) NUCLEATED RED BLOOD CELLS 0 /100 WBC 0-0 (BEAKER) (test code = 413) NEUTROPHILS RELATIVE PERCENT 68 % (BEAKER) (test code = 429) LYMPHOCYTES RELATIVE PERCENT 20 % (BEAKER) (test code = 430) MONOCYTES RELATIVE PERCENT 7 % (BEAKER) (test code = 431) EOSINOPHILS RELATIVE PERCENT 2 % (BEAKER) (test code = 432) BASOPHILS RELATIVE PERCENT 1 % (BEAKER) (test code = 437) NEUTROPHILS ABSOLUTE COUNT 4.17 K/ L 1.56-6.13 (BEAKER) (test code = 670) LYMPHOCYTES ABSOLUTE COUNT 1.23 K/ L 1.18-3.74 (BEAKER) (test code = 414) MONOCYTES ABSOLUTE COUNT (BEAKER) 0.45 K/ L 0.24-0.36 H (test code = 415) EOSINOPHILS ABSOLUTE COUNT 0.15 K/ L 0.04-0.36 (BEAKER) (test code = 416) BASOPHILS ABSOLUTE COUNT (BEAKER) 0.07 K/ L 0.01-0.08 (test code = 417) IMMATURE GRANULOCYTES-RELATIVE 1 % 0-1 PERCENT (BEAKER) (test code = 2801) POCT-GLUCOSE [id number] 21:21:00 Test Item Value Reference Range Interpretation Comments POC-GLUCOSE METER 134 mg/dL 70-110 H TESTED AT [facility] 67[address] (BEAKER) (test code = [address] [place] 1538) [id number] BASIC METABOLIC [id number] 18:26:00 Test Item Value Reference Range Interpretation Comments SODIUM (BEAKER) 138 meq/L 136-145 (test code = 381) POTASSIUM (BEAKER) 3.9 meq/L 3.5-5.1 (test code = 379) CHLORIDE (BEAKER) 107 meq/L 98-107 (test code = 382) CO2 (BEAKER) (test 23 meq/L 22-29 code = 355) BLOOD UREA NITROGEN 37 mg/dL 7-21 H (BEAKER) (test code = 354) CREATININE (BEAKER) 2.42 mg/dL 0.57-1.25 H (test code = 358) GLUCOSE RANDOM 135 mg/dL 70-105 H (BEAKER) (test code = 652) CALCIUM (BEAKER) 9.3 mg/dL 8.4-10.2 (test code = 697) EGFR (BEAKER) (test 20 mL/min/1.73 ESTIMA FLORENCE GFR IS code = 1092) sq m NOT ACCURATE CREATININE CLEARANCE IN PREDICTING GLOMERULAR FILTRATION RATE . ESTIMATED GFR I S NOT APPLICABLE FOR DIALYSIS PATIEN TS. POCT-GLUCOSE [id number] 18:21:00 Test Item Value Reference Range Interpretation Comments POC-GLUCOSE METER 164 mg/dL 70-110 H TESTED AT [facility] 67[address] (BEAKER) (test code = DOMINIQUE Meyer [place] 1538) [id number] POCT-GLUCOSE [id number] 11:12:00 Test Item Value Reference Range Interpretation Comments POC-GLUCOSE METER 160 mg/dL 70-110 H TESTED AT [facility] 67[address] (BEAKER) (test code = DOMINIQUE Meyer [place] 1538) [id number] COMPREHENSIVE METABOLIC [id number] 05:14:00 Test Item Value Reference Range Interpretation Comments TOTAL PROTEIN 6.4 gm/dL 6.0-8.3 (BEAKER) (test code = 770) ALBUMIN (BEAKER) 3.8 g/dL 3.5-5.0 (test code = 1145) ALKALINE PHOSPHATASE 59 U/L 40-150 (BEAKER) (test code = 346) BILIRUBIN TOTAL 0.4 mg/dL 0.2-1.2 (BEAKER) (test code = 377) SODIUM (BEAKER) (test 139 meq/L 136-145 code = 381) POTASSIUM (BEAKER) 3.4 meq/L 3.5-5.1 L (test code = 379) CHLORIDE (BEAKER) 108 meq/L 98-107 H (test code = 382) CO2 (BEAKER) (test 23 meq/L 22-29 code = 355) BLOOD UREA NITROGEN 34 mg/dL 7-21 H (BEAKER) (test code = 354) CREATININE (BEAKER) 2.49 mg/dL 0.57-1.25 H (test code = 358) GLUCOSE RANDOM 144 mg/dL 70-105 H (BEAKER) (test code = 652) CALCIUM (BEAKER) 9.2 mg/dL 8.4-10.2 (test code = 697) AST (SGOT) (BEAKER) 20 U/L 5-34 (test code = 353) ALT (SGPT) (BEAKER) 18 U/L 6-55 (test code = 347) EGFR (BEAKER) (test 19 mL/min/1.73 ESTIMA FLORENCE GFR IS code = 1092) sq m NOT ACCURATE CREATININE CLEARANCE IN PREDICTING GLOMERULAR FILTRATION RATE . ESTIMATED GFR I S NOT APPLICABLE FOR DIALYSIS PATIEN TS. [id number] 05:12:00 Test Item Value Reference Range Interpretation Comments PHOSPHORUS (BEAKER) (test code = 2.7 mg/dL 2.3-4.7 604) [id number] 05:12:00 Test Item Value Reference Range Interpretation Comments MAGNESIUM (BEAKER) (test code = 2.0 mg/dL 1.6-2.6 627) [id number] 05:05:00 Test Item Value Reference Range Interpretation Comments PARTIAL THROMBOPLASTIN TIME 78.0 seconds 22.5-36.0 H (BEAKER) (test code = 760) CALCIUM, [id number] 04:53:00 Test Item Value Reference Range Interpretation Comments CALCIUM IONIZED (BEAKER) (test 1.18 mmol/L 1.12-1.27 code = 698) PH, BLOOD (BEAKER) (test code = 7.41 1810) CBC W/PLT COUNT & AUTO [id number] 04:44:00 Test Item Value Reference Range Interpretation Comments WHITE BLOOD CELL COUNT (BEAKER) 7.5 K/ L 3.5-10.5 (test code = 775) RED BLOOD CELL COUNT (BEAKER) 2.89 M/ L 3.93-5.22 L (test code = 761) HEMOGLOBIN (BEAKER) (test code = 8.8 GM/DL 11.2-15.7 L 410) HEMATOCRIT (BEAKER) (test code = 28.3 % 34.1-44.9 L 411) MEAN CORPUSCULAR VOLUME (BEAKER) 97.9 fL 79.4-94.8 H (test code = 753) MEAN CORPUSCULAR HEMOGLOBIN 30.4 pg 25.6-32.2 (BEAKER) (test code = 751) MEAN CORPUSCULAR HEMOGLOBIN CONC 31.1 GM/DL 32.2-35.5 L (BEAKER) (test code = 752) RED CELL DISTRIBUTION WIDTH 13.8 % 11.7-14.4 (BEAKER) (test code = 412) PLATELET COUNT (BEAKER) (test 263 K/CU MM 150-450 code = 756) MEAN PLATELET VOLUME (BEAKER) 9.3 fL 9.4-12.3 L (test code = 754) NUCLEATED RED BLOOD CELLS 0 /100 WBC 0-0 (BEAKER) (test code = 413) NEUTROPHILS RELATIVE PERCENT 73 % (BEAKER) (test code = 429) LYMPHOCYTES RELATIVE PERCENT 16 % (BEAKER) (test code = 430) MONOCYTES RELATIVE PERCENT 7 % (BEAKER) (test code = 431) EOSINOPHILS RELATIVE PERCENT 2 % (BEAKER) (test code = 432) BASOPHILS RELATIVE PERCENT 1 % (BEAKER) (test code = 437) NEUTROPHILS ABSOLUTE COUNT 5.44 K/ L 1.56-6.13 (BEAKER) (test code = 670) LYMPHOCYTES ABSOLUTE COUNT 1.21 K/ L 1.18-3.74 (BEAKER) (test code = 414) MONOCYTES ABSOLUTE COUNT (BEAKER) 0.54 K/ L 0.24-0.36 H (test code = 415) EOSINOPHILS ABSOLUTE COUNT 0.17 K/ L 0.04-0.36 (BEAKER) (test code = 416) BASOPHILS ABSOLUTE COUNT (BEAKER) 0.08 K/ L 0.01-0.08 (test code = 417) IMMATURE GRANULOCYTES-RELATIVE 1 % 0-1 PERCENT (BEAKER) (test code = 2801) POCT-GLUCOSE [id number] 21:33:00 Test Item Value Reference Range Interpretation Comments POC-GLUCOSE METER 138 mg/dL 70-110 H TESTED AT [facility] 67[address] (BEAKER) (test code = [place] 1538) [id number] BASIC METABOLIC [id number] 18:05:00 Test Item Value Reference Range Interpretation Comments SODIUM (BEAKER) 136 meq/L 136-145 (test code = 381) POTASSIUM (BEAKER) 3.7 meq/L 3.5-5.1 (test code = 379) CHLORIDE (BEAKER) 103 meq/L 98-107 (test code = 382) CO2 (BEAKER) (test 25 meq/L 29 code = 355) BLOOD UREA NITROGEN 36 mg/dL 7-21 H (BEAKER) (test code = 354) CREATININE (BEAKER) 2.80 mg/dL 0.57-1.25 H (test code = 358) GLUCOSE RANDOM 186 mg/dL 70-105 H (BEAKER) (test code = 652) CALCIUM (BEAKER) 9.1 mg/dL 8.4-10.2 (test code = 697) EGFR (BEAKER) (test 17 mL/min/1.73 ESTIMA FLORENCE GFR IS code = 1092) sq m NOT ACCURATE CREATININE CLEARANCE IN PREDICTING GLOMERULAR FILTRATION RATE . ESTIMATED GFR I S NOT APPLICABLE FOR DIALYSIS PATIEN [id number] 13:04:00 Test Item Value Reference Range Interpretation Comments PARTIAL THROMBOPLASTIN TIME 71.7 seconds 22.5-36.0 H (BEAKER) (test code = 760) POCT-GLUCOSE [id number] 12:11:00 Test Item Value Reference Range Interpretation Comments POC-GLUCOSE METER 158 mg/dL 70-110 H TESTED AT [facility] 67[address] (BEAKER) (test code = [place] 1538) [id number] COMPREHENSIVE METABOLIC [id number] 06:52:00 Test Item Value Reference Range Interpretation Comments TOTAL PROTEIN 6.5 gm/dL 6.0-8.3 (BEAKER) (test code = 770) ALBUMIN (BEAKER) 3.7 g/dL 3.5-5.0 (test code = 1145) ALKALINE PHOSPHATASE 65 U/L 40-150 (BEAKER) (test code = 346) BILIRUBIN TOTAL 0.4 mg/dL 0.2-1.2 (BEAKER) (test code = 377) SODIUM (BEAKER) (test 139 meq/L 136-145 code = 381) POTASSIUM (BEAKER) 3.0 meq/L 3.5-5.1 L (test code = 379) CHLORIDE (BEAKER) 104 meq/L 98-107 (test code = 382) CO2 (BEAKER) (test 24 meq/L 22-29 code = 355) BLOOD UREA NITROGEN 38 mg/dL 7-21 H (BEAKER) (test code = 354) CREATININE (BEAKER) 3.18 mg/dL 0.57-1.25 H (test code = 358) GLUCOSE RANDOM 141 mg/dL 70-105 H (BEAKER) (test code = 652) CALCIUM (BEAKER) 9.1 mg/dL 8.4-10.2 (test code = 697) AST (SGOT) (BEAKER) 21 U/L 5-34 (test code = 353) ALT (SGPT) (BEAKER) 17 U/L 6-55 (test code = 347) EGFR (BEAKER) (test 15 mL/min/1.73 ESTIMA FLORENCE GFR IS code = 1092) sq m NOT ACCURATE CREATININE CLEARANCE IN PREDICTING GLOMERULAR FILTRATION RATE . ESTIMATED GFR I S NOT APPLICABLE FOR DIALYSIS PATIEN TS. [id number] 06:47:00 Test Item Value Reference Range Interpretation Comments PHOSPHORUS (BEAKER) (test code = 2.8 mg/dL 2.3-4.7 604) [id number] 06:47:00 Test Item Value Reference Range Interpretation Comments MAGNESIUM (BEAKER) (test code = 1.6 mg/dL 1.6-2.6 627) CBC W/PLT COUNT & AUTO [id number] 06:42:00 Test Item Value Reference Range Interpretation Comments WHITE BLOOD CELL COUNT (BEAKER) 6.4 K/ L 3.5-10.5 (test code = 775) RED BLOOD CELL COUNT (BEAKER) 2.86 M/ L 3.93-5.22 L (test code = 761) HEMOGLOBIN (BEAKER) (test code = 8.8 GM/DL 11.2-15.7 L 410) HEMATOCRIT (BEAKER) (test code = 27.7 % 34.1-44.9 L 411) MEAN CORPUSCULAR VOLUME (BEAKER) 96.9 fL 79.4-94.8 H (test code = 753) MEAN CORPUSCULAR HEMOGLOBIN 30.8 pg 25.6-32.2 (BEAKER) (test code = 751) MEAN CORPUSCULAR HEMOGLOBIN CONC 31.8 GM/DL 32.2-35.5 L (BEAKER) (test code = 752) RED CELL DISTRIBUTION WIDTH 13.9 % 11.7-14.4 (BEAKER) (test code = 412) PLATELET COUNT (BEAKER) (test 261 K/CU MM 150-450 code = 756) MEAN PLATELET VOLUME (BEAKER) 9.1 fL 9.4-12.3 L (test code = 754) NUCLEATED RED BLOOD CELLS 0 /100 WBC 0-0 (BEAKER) (test code = 413) NEUTROPHILS RELATIVE PERCENT 73 % (BEAKER) (test code = 429) LYMPHOCYTES RELATIVE PERCENT 17 % (BEAKER) (test code = 430) MONOCYTES RELATIVE PERCENT 7 % (BEAKER) (test code = 431) EOSINOPHILS RELATIVE PERCENT 2 % (BEAKER) (test code = 432) BASOPHILS RELATIVE PERCENT 1 % (BEAKER) (test code = 437) NEUTROPHILS ABSOLUTE COUNT 4.66 K/ L 1.56-6.13 (BEAKER) (test code = 670) LYMPHOCYTES ABSOLUTE COUNT 1.07 K/ L 1.18-3.74 L (BEAKER) (test code = 414) MONOCYTES ABSOLUTE COUNT (BEAKER) 0.44 K/ L 0.24-0.36 H (test code = 415) EOSINOPHILS ABSOLUTE COUNT 0.12 K/ L 0.04-0.36 (BEAKER) (test code = 416) BASOPHILS ABSOLUTE COUNT (BEAKER) 0.04 K/ L 0.01-0.08 (test code = 417) IMMATURE GRANULOCYTES-RELATIVE 1 % 0-1 PERCENT (BEAKER) (test code = 2801) CBC (HEMOGRAM ONLY)2018-12-02 06:42:00 Test Item Value Reference Range Interpretation Comments WHITE BLOOD CELL COUNT (BEAKER) 6.4 K/ L 3.5-10.5 (test code = 775) RED BLOOD CELL COUNT (BEAKER) 2.86 M/ L 3.93-5.22 L (test code = 761) HEMOGLOBIN (BEAKER) (test code = 8.8 GM/DL 11.2-15.7 L 410) HEMATOCRIT (BEAKER) (test code = 27.7 % 34.1-44.9 L 411) MEAN CORPUSCULAR VOLUME (BEAKER) 96.9 fL 79.4-94.8 H (test code = 753) MEAN CORPUSCULAR HEMOGLOBIN 30.8 pg 25.6-32.2 (BEAKER) (test code = 751) MEAN CORPUSCULAR HEMOGLOBIN CONC 31.8 GM/DL 32.2-35.5 L (BEAKER) (test code = 752) RED CELL DISTRIBUTION WIDTH 13.9 % 11.7-14.4 (BEAKER) (test code = 412) PLATELET COUNT (BEAKER) (test 261 K/CU MM 150-450 code = 756) MEAN PLATELET VOLUME (BEAKER) 9.1 fL 9.4-12.3 L (test code = 754) NUCLEATED RED BLOOD CELLS 0 /100 WBC 0-0 (BEAKER) (test code = 413) [id number] 06:35:00 Test Item Value Reference Range Interpretation Comments PARTIAL THROMBOPLASTIN TIME 73.5 seconds 22.5-36.0 H (BEAKER) (test code = 760) CALCIUM, [id number] 06:31:00 Test Item Value Reference Range Interpretation Comments CALCIUM IONIZED (BEAKER) (test 1.09 mmol/L 1.12-1.27 L code = 698) PH, BLOOD (BEAKER) (test code = 7.43 1810) [id number] 00:08:00 Test Item Value Reference Range Interpretation Comments PARTIAL THROMBOPLASTIN TIME 90.3 seconds 22.5-36.0 H (BEAKER) (test code = 760) POCT-GLUCOSE [id number] 21:20:00 Test Item Value Reference Range Interpretation Comments POC-GLUCOSE METER 138 mg/dL 70-110 H TESTED AT [facility] 6720 (BEAKER) (test code = DOMINIQUE [place] 1538) [address] BASIC METABOLIC [id number] 18:42:00 Test Item Value Reference Range Interpretation Comments SODIUM (BEAKER) 138 meq/L 136-145 (test code = 381) POTASSIUM (BEAKER) 3.5 meq/L 3.5-5.1 (test code = 379) CHLORIDE (BEAKER) 102 meq/L 98-107 (test code = 382) CO2 (BEAKER) (test 26 meq/L -29 code = 355) BLOOD UREA NITROGEN 38 mg/dL 7-21 H (BEAKER) (test code = 354) CREATININE (BEAKER) 3.64 mg/dL 0.57-1.25 H (test code = 358) GLUCOSE RANDOM 121 mg/dL 70-105 H (BEAKER) (test code = 652) CALCIUM (BEAKER) 9.1 mg/dL 8.4-10.2 (test code = 697) EGFR (BEAKER) (test 12 mL/min/1.73 ESTIMA FLORENCE GFR IS code = 1092) sq m NOT ACCURATE CREATININE CLEARANCE IN PREDICTING GLOMERULAR FILTRATION RATE . ESTIMATED GFR I S NOT APPLICABLE FOR DIALYSIS PATIEN TS. [id number] 18:26:00 Test Item Value Reference Range Interpretation Comments PARTIAL THROMBOPLASTIN TIME 80.9 seconds 22.5-36.0 H (BEAKER) (test code = 760) POCT-GLUCOSE [id number] 17:22:00 Test Item Value Reference Range Interpretation Comments POC-GLUCOSE METER 129 mg/dL 70-110 H TESTED AT [place] [address] ([facility]) (test code = DOMINIQUE Meyer [facility] 1538) [address] POCT-GLUCOSE [id number] 12:51:00 Test Item Value Reference Range Interpretation Comments POC-GLUCOSE METER 240 mg/dL 70-110 H TESTED AT [place] [address] ([facility]) (test code = [facility] [place] [facility] 1538) [id number] 12:31:00 Test Item Value Reference Range Interpretation Comments RPR SCREEN ([facility]) (test code = Nonreactive Nonreactive 420) [id number] 12:18:00 Test Item Value Reference Range Interpretation Comments PARTIAL THROMBOPLASTIN TIME 61.7 seconds 22.5-36.0 H ([facility]) (test code = 760) EOSINOPHIL SMEAR, [id number] 10:02:00 Test Item Value Reference Range Interpretation Comments EOSINOPHIL SMEAR, URINE Rare EOS =less than No EOS seen A ([facility]) (test code = 5% WBCs seen are EOS 1851) POCT-GLUCOSE [id number] 09:06:00 Test Item Value Reference Range Interpretation Comments POC-GLUCOSE METER 137 mg/dL 70-110 H TESTED AT [place] [address] ([facility]) (test code = [facility] 1538) [address] CREATININE, RANDOM [id number] 08:22:00 Test Item Value Reference Range Interpretation Comments CREATININE URINE ([facility]) (test 54.1 mg/dL code = 375) Reference Range: No NormalsPROTEIN, RANDOM [id number] 08:22:00 Test Item Value Reference Range Interpretation Comments PROTEIN, URINE ([facility]) (test code = 44 mg/dL 0-14 H 1569) VITAMIN B12 AND [id number] 08:14:00 Test Item Value Reference Range Interpretation Comments VITAMIN B12 ([facility]) (test code = 455 pg/mL 213-816 774) FOLATE ([facility]) (test code = 362) 9.9 ng/mL >=7.0 COMPREHENSIVE METABOLIC [id number] 06:59:00 Test Item Value Reference Range Interpretation Comments TOTAL PROTEIN 7.0 gm/dL 6.0-8.3 (BEAKER) (test code = 770) ALBUMIN (BEAKER) 4.0 g/dL 3.5-5.0 (test code = 1145) ALKALINE PHOSPHATASE 71 U/L 40-150 (BEAKER) (test code = 346) BILIRUBIN TOTAL 0.5 mg/dL 0.2-1.2 (BEAKER) (test code = 377) SODIUM (BEAKER) (test 141 meq/L 136-145 code = 381) POTASSIUM (BEAKER) 3.3 meq/L 3.5-5.1 L (test code = 379) CHLORIDE (BEAKER) 103 meq/L 98-107 (test code = 382) CO2 (BEAKER) (test 25 meq/L 22-29 code = 355) BLOOD UREA NITROGEN 33 mg/dL 7-21 H (BEAKER) (test code = 354) CREATININE (BEAKER) 4.20 mg/dL 0.57-1.25 H (test code = 358) GLUCOSE RANDOM 135 mg/dL 70-105 H (BEAKER) (test code = 652) CALCIUM (BEAKER) 9.3 mg/dL 8.4-10.2 (test code = 697) AST (SGOT) (BEAKER) 20 U/L 5-34 (test code = 353) ALT (SGPT) (BEAKER) 17 U/L 6-55 (test code = 347) EGFR (BEAKER) (test 11 mL/min/1.73 ESTIMA FLORENCE GFR IS code = 1092) sq m NOT ACCURATE CREATININE CLEARANCE IN PREDICTING GLOMERULAR FILTRATION RATE . ESTIMATED GFR I S NOT APPLICABLE FOR DIALYSIS PATIEN TS. [id number] 06:34:00 Test Item Value Reference Range Interpretation Comments PHOSPHORUS (BEAKER) (test code = 3.2 mg/dL 2.3-4.7 604) [id number] 06:34:00 Test Item Value Reference Range Interpretation Comments MAGNESIUM (BEAKER) (test code = 1.7 mg/dL 1.6-2.6 627) URINALYSIS W/ [id number] 04:37:00 Test Item Value Reference Range Interpretation Comments COLOR (BEAKER) (test code = 470) Light Yellow CLARITY (BEAKER) (test code = Clear 469) SPECIFIC GRAVITY UA (BEAKER) 1.007 1.001-1.035 (test code = 468) PH UA (BEAKER) (test code = 467) 8.0 5.0-8.0 PROTEIN UA (BEAKER) (test code = 50 mg/dL Negative A 464) GLUCOSE UA (BEAKER) (test code = 150 mg/dL Negative A 365) KETONES UA (BEAKER) (test code = 10 mg/dL Negative A 371) BILIRUBIN UA (BEAKER) (test code Negative Negative = 462) BLOOD UA (BEAKER) (test code = Small Negative A 461) NITRITE UA (BEAKER) (test code = Negative Negative 465) LEUKOCYTE ESTERASE UA (BEAKER) Small Negative A (test code = 466) UROBILINOGEN UA (BEAKER) (test 0.2 mg/dL 0.2-1.0 code = 463) RBC UA (BEAKER) (test code = 5 /HPF 519) WBC UA (BEAKER) (test code = 26 /HPF 520) BACTERIA (BEAKER) (test code = Few 517) SQUAMOUS EPITHELIAL (BEAKER) 2 /HPF (test code = 516) HYALINE CASTS (BEAKER) (test 2 /LPF code = 514) CRYSTALS, URINE (BEAKER) (test None Seen code = 1521) YEAST (BEAKER) (test code = Few 1585) SOURCE(BEAKER) (test code = 6518) [id number] 04:21:00 Test Item Value Reference Range Interpretation Comments PARTIAL THROMBOPLASTIN TIME 53.5 seconds 22.5-36.0 H (BEAKER) (test code = 760) CBC W/PLT COUNT & AUTO [id number] 04:09:00 Test Item Value Reference Range Interpretation Comments WHITE BLOOD CELL COUNT (BEAKER) 7.7 K/ L 3.5-10.5 (test code = 775) RED BLOOD CELL COUNT (BEAKER) 2.91 M/ L 3.93-5.22 L (test code = 761) HEMOGLOBIN (BEAKER) (test code = 9.0 GM/DL 11.2-15.7 L 410) HEMATOCRIT (BEAKER) (test code = 27.8 % 34.1-44.9 L 411) MEAN CORPUSCULAR VOLUME (BEAKER) 95.5 fL 79.4-94.8 H (test code = 753) MEAN CORPUSCULAR HEMOGLOBIN 30.9 pg 25.6-32.2 (BEAKER) (test code = 751) MEAN CORPUSCULAR HEMOGLOBIN CONC 32.4 GM/DL 32.2-35.5 (BEAKER) (test code = 752) RED CELL DISTRIBUTION WIDTH 13.9 % 11.7-14.4 (BEAKER) (test code = 412) PLATELET COUNT (BEAKER) (test 275 K/CU MM 150-450 code = 756) MEAN PLATELET VOLUME (BEAKER) 9.1 fL 9.4-12.3 L (test code = 754) NUCLEATED RED BLOOD CELLS 0 /100 WBC 0-0 (BEAKER) (test code = 413) NEUTROPHILS RELATIVE PERCENT 78 % (BEAKER) (test code = 429) LYMPHOCYTES RELATIVE PERCENT 12 % (BEAKER) (test code = 430) MONOCYTES RELATIVE PERCENT 8 % (BEAKER) (test code = 431) EOSINOPHILS RELATIVE PERCENT 1 % (BEAKER) (test code = 432) BASOPHILS RELATIVE PERCENT 1 % (BEAKER) (test code = 437) NEUTROPHILS ABSOLUTE COUNT 5.94 K/ L 1.56-6.13 (BEAKER) (test code = 670) LYMPHOCYTES ABSOLUTE COUNT 0.94 K/ L 1.18-3.74 L (BEAKER) (test code = 414) MONOCYTES ABSOLUTE COUNT (BEAKER) 0.57 K/ L 0.24-0.36 H (test code = 415) EOSINOPHILS ABSOLUTE COUNT 0.09 K/ L 0.04-0.36 (BEAKER) (test code = 416) BASOPHILS ABSOLUTE COUNT (BEAKER) 0.07 K/ L 0.01-0.08 (test code = 417) IMMATURE GRANULOCYTES-RELATIVE 1 % 0-1 PERCENT (BEAKER) (test code = 2801) CALCIUM, [id number] 04:08:00 Test Item Value Reference Range Interpretation Comments CALCIUM IONIZED (BEAKER) (test 1.12 mmol/L 1.12-1.27 code = 698) PH, BLOOD (BEAKER) (test code = 7.44 1810) POCT-GLUCOSE [id number] 21:13:00 Test Item Value Reference Range Interpretation Comments POC-GLUCOSE METER 126 mg/dL 70-110 H TESTED AT [place] [address] (BEAKER) (test code = [facility] 1538) [address] BASIC METABOLIC [id number] 18:33:00 Test Item Value Reference Range Interpretation Comments SODIUM (BEAKER) 140 meq/L 136-145 (test code = 381) POTASSIUM (BEAKER) 3.4 meq/L 3.5-5.1 L (test code = 379) CHLORIDE (BEAKER) 102 meq/L 98-107 (test code = 382) CO2 (BEAKER) (test 26 meq/L 22-29 code = 355) BLOOD UREA NITROGEN 30 mg/dL 7-21 H (BEAKER) (test code = 354) CREATININE (BEAKER) 4.50 mg/dL 0.57-1.25 H (test code = 358) GLUCOSE RANDOM 131 mg/dL 70-105 H (AKER) (test code = 652) CALCIUM (BEAKER) 9.1 mg/dL 8.4-10.2 (test code = 697) EGFR ([facility]) (test 10 mL/min/1.73 ESTIMA FLORENCE GFR IS code = 1092) sq m NOT ACCURATE CREATININE CLEARANCE IN PREDICTING GLOMERULAR FILTRATION RATE . ESTIMATED GFR I S NOT APPLICABLE FOR DIALYSIS PATIEN TS. POCT-GLUCOSE [id number] 18:12:00 Test Item Value Reference Range Interpretation Comments POC-GLUCOSE METER 147 mg/dL 70-110 H TESTED AT [place] [address] ([facility]) (test code = [facility] 1538) [address] POCT-GLUCOSE [id number] 13:42:00 Test Item Value Reference Range Interpretation Comments POC-GLUCOSE METER 136 mg/dL 70-110 H TESTED AT [place] [address] ([facility]) (test code = [facility] 1538) [address] POCT-GLUCOSE [id number] 09:22:00 Test Item Value Reference Range Interpretation Comments POC-GLUCOSE METER 134 mg/dL 70-110 H TESTED AT [place] [address] ([facility]) (test code = [facility] 1538) [address] B-TYPE NATRIURETIC FACTOR (BNP)[id number] 02:02:00 Test Item Value Reference Range Interpretation Comments B-TYPE NATRIURETIC PEPTIDE (BEAKER) 747 pg/mL 0-100 H (test code = 700) TROPONIN [id number] 01:55:00 Test Item Value Reference Range Interpretation Comments TROPONIN I (BEAKER) (test code = 0.04 ng/mL 0.00-0.03 H 397) Troponin I (TnI) levels must be interpreted [...] failure, acidosis, acute neurological disease, and persistent tachyarrhythmia.[id number] 01:55:00 Test Item Value Reference Range Interpretation Comments PARTIAL THROMBOPLASTIN TIME 73.6 seconds 22.5-36.0 H (BEAKER) (test code = 760) COMPREHENSIVE METABOLIC [id number] 01:49:00 Test Item Value Reference Range Interpretation Comments TOTAL PROTEIN 7.1 gm/dL 6.0-8.3 (BEAKER) (test code = 770) ALBUMIN (BEAKER) 4.1 g/dL 3.5-5.0 (test code = 1145) ALKALINE PHOSPHATASE 71 U/L 40-150 (BEAKER) (test code = 346) BILIRUBIN TOTAL 0.5 mg/dL 0.2-1.2 (BEAKER) (test code = 377) SODIUM (BEAKER) (test 139 meq/L 136-145 code = 381) POTASSIUM (BEAKER) 3.3 meq/L 3.5-5.1 L (test code = 379) CHLORIDE (BEAKER) 100 meq/L 98-107 (test code = 382) CO2 (BEAKER) (test 26 meq/L 22-29 code = 355) BLOOD UREA NITROGEN 27 mg/dL 7-21 H (BEAKER) (test code = 354) CREATININE (BEAKER) 4.91 mg/dL 0.57-1.25 H (test code = 358) GLUCOSE RANDOM 124 mg/dL 70-105 H (BEAKER) (test code = 652) CALCIUM (BEAKER) 9.0 mg/dL 8.4-10.2 (test code = 697) AST (SGOT) (BEAKER) 19 U/L 5-34 (test code = 353) ALT (SGPT) (BEAKER) 15 U/L 6-55 (test code = 347) EGFR (BEAKER) (test 9 mL/min/1.73 ESTIMAT ED GFR IS code = 1092) sq m NOT ACCURATE CREATININE CLEARANCE IN PREDICTING GLOMERULAR FILTRATION RATE . ESTIMATED GFR I S NOT APPLICABLE FOR DIALYSIS PATIEN TS. [id number] 01:48:00 Test Item Value Reference Range Interpretation Comments PHOSPHORUS (BEAKER) (test code = 3.5 mg/dL 2.3-4.7 604) [id number] 01:48:00 Test Item Value Reference Range Interpretation Comments MAGNESIUM (BEAKER) (test code = 1.8 mg/dL 1.6-2.6 627) CALCIUM, [id number] 01:27:00 Test Item Value Reference Range Interpretation Comments CALCIUM IONIZED (BEAKER) (test 1.07 mmol/L 1.12-1.27 L code = 698) PH, BLOOD (BEAKER) (test code = 7.41 1810) CBC W/PLT COUNT & AUTO [id number] 01:25:00 Test Item Value Reference Range Interpretation Comments WHITE BLOOD CELL COUNT (BEAKER) 7.1 K/ L 3.5-10.5 (test code = 775) RED BLOOD CELL COUNT (BEAKER) 2.78 M/ L 3.93-5.22 L (test code = 761) HEMOGLOBIN (BEAKER) (test code = 8.7 GM/DL 11.2-15.7 L 410) HEMATOCRIT (BEAKER) (test code = 26.6 % 34.1-44.9 L 411) MEAN CORPUSCULAR VOLUME (BEAKER) 95.7 fL 79.4-94.8 H (test code = 753) MEAN CORPUSCULAR HEMOGLOBIN 31.3 pg 25.6-32.2 (BEAKER) (test code = 751) MEAN CORPUSCULAR HEMOGLOBIN CONC 32.7 GM/DL 32.2-35.5 (BEAKER) (test code = 752) RED CELL DISTRIBUTION WIDTH 13.8 % 11.7-14.4 (BEAKER) (test code = 412) PLATELET COUNT (BEAKER) (test 251 K/CU MM 150-450 code = 756) MEAN PLATELET VOLUME (BEAKER) 8.5 fL 9.4-12.3 L (test code = 754) NUCLEATED RED BLOOD CELLS 0 /100 WBC 0-0 (BEAKER) (test code = 413) NEUTROPHILS RELATIVE PERCENT 78 % (BEAKER) (test code = 429) LYMPHOCYTES RELATIVE PERCENT 13 % (BEAKER) (test code = 430) MONOCYTES RELATIVE PERCENT 7 % (BEAKER) (test code = 431) EOSINOPHILS RELATIVE PERCENT 1 % (BEAKER) (test code = 432) BASOPHILS RELATIVE PERCENT 1 % (BEAKER) (test code = 437) NEUTROPHILS ABSOLUTE COUNT 5.51 K/ L 1.56-6.13 (BEAKER) (test code = 670) LYMPHOCYTES ABSOLUTE COUNT 0.93 K/ L 1.18-3.74 L (BEAKER) (test code = 414) MONOCYTES ABSOLUTE COUNT (BEAKER) 0.49 K/ L 0.24-0.36 H (test code = 415) EOSINOPHILS ABSOLUTE COUNT 0.04 K/ L 0.04-0.36 (BEAKER) (test code = 416) BASOPHILS ABSOLUTE COUNT (BEAKER) 0.05 K/ L 0.01-0.08 (test code = 417) IMMATURE GRANULOCYTES-RELATIVE 0 % 0-1 PERCENT (BEAKER) (test code = 2801) POCT-GLUCOSE [id number] 21:31:00 Test Item Value Reference Range Interpretation Comments POC-GLUCOSE METER 125 mg/dL 70-110 H TESTED AT [place] [address] ([facility]) (test code = DOMINIQUE Meyer [facility] 1538) [id number] TROPONIN [id number] 18:55:00 Test Item Value Reference Range Interpretation Comments TROPONIN I ([facility]) (test code = 0.05 ng/mL 0.00-0.03 H 397) Troponin I (TnI) levels must be interpreted [...] acidosis, acute neurological disease, and persistent tachyarrhythmia.POCT-GLUCOSE [id number] 18:04:00 Test Item Value Reference Range Interpretation Comments POC-GLUCOSE METER 140 mg/dL 70-110 H TESTED AT [place] [address] ([facility]) (test code = [place] 1538) [address] BASIC METABOLIC [id number] 17:31:00 Test Item Value Reference Range Interpretation Comments SODIUM (BEAKER) 138 meq/L 136-145 (test code = 381) POTASSIUM (BEAKER) 3.5 meq/L 3.5-5.1 (test code = 379) CHLORIDE (BEAKER) 100 meq/L 98-107 (test code = 382) CO2 (BEAKER) (test 27 meq/L 22-29 code = 355) BLOOD UREA NITROGEN 23 mg/dL 7-21 H (BEAKER) (test code = 354) CREATININE (BEAKER) 4.74 mg/dL 0.57-1.25 H (test code = 358) GLUCOSE RANDOM 125 mg/dL 70-105 H (BEAKER) (test code = 652) CALCIUM (BEAKER) 8.8 mg/dL 8.4-10.2 (test code = 697) EGFR (BEAKER) (test 9 mL/min/1.73 ESTIMAT ED GFR IS code = 1092) sq m NOT ACCURATE CREATININE CLEARANCE IN PREDICTING GLOMERULAR FILTRATION RATE . ESTIMATED GFR I S NOT APPLICABLE FOR DIALYSIS PATIEN TS. POCT-GLUCOSE [id number] 13:03:00 Test Item Value Reference Range Interpretation Comments POC-GLUCOSE METER 137 mg/dL 70-110 H TESTED AT [facility] 6720 [facility] (test code = [facility] [place] [facility] 1538) [address] TROPONIN [id number] 12:03:00 Test Item Value Reference Range Interpretation Comments TROPONIN I (CHAVOAKER) (test code = 0.06 ng/mL 0.00-0.03 H 397) Troponin I (TnI) levels must be interpreted [...] failure, acidosis, acute neurological disease, and persistent tachyarrhythmia.[id number] 11:43:00 Test Item Value Reference Range Interpretation Comments PARTIAL THROMBOPLASTIN TIME 72.3 seconds 22.5-36.0 H (BEAKER) (test code = 760) POCT-GLUCOSE [id number] 08:15:00 Test Item Value Reference Range Interpretation Comments POC-GLUCOSE METER 131 mg/dL 70-110 H TESTED AT [facility] 6720 ([facility] (test code = [place] 1538) [id number] [id number] 05:18:00 Test Item Value Reference Range Interpretation Comments PARTIAL THROMBOPLASTIN TIME 74.2 seconds 22.5-36.0 H (BEAKER) (test code = 760) [id number] 03:28:00 Test Item Value Reference Range Interpretation Comments PARTIAL THROMBOPLASTIN TIME 136.3 seconds 22.5-36.0 H (BEAKER) (test code = 760) COMPREHENSIVE METABOLIC [id number] 02:40:00 Test Item Value Reference Range Interpretation Comments TOTAL PROTEIN 7.2 gm/dL 6.0-8.3 (BEAKER) (test code = 770) ALBUMIN (BEAKER) 4.1 g/dL 3.5-5.0 (test code = 1145) ALKALINE PHOSPHATASE 77 U/L 40-150 (BEAKER) (test code = 346) BILIRUBIN TOTAL 0.6 mg/dL 0.2-1.2 (BEAKER) (test code = 377) SODIUM (BEAKER) (test 137 meq/L 136-145 code = 381) POTASSIUM (BEAKER) 3.5 meq/L 3.5-5.1 (test code = 379) CHLORIDE (BEAKER) 97 meq/L 98-107 L (test code = 382) CO2 (BEAKER) (test 26 meq/L 22-29 code = 355) BLOOD UREA NITROGEN 17 mg/dL 7-21 (BEAKER) (test code = 354) CREATININE (BEAKER) 4.08 mg/dL 0.57-1.25 H (test code = 358) GLUCOSE RANDOM 129 mg/dL 70-105 H (BEAKER) (test code = 652) CALCIUM (BEAKER) 9.1 mg/dL 8.4-10.2 (test code = 697) AST (SGOT) (BEAKER) 22 U/L 5-34 (test code = 353) ALT (SGPT) (BEAKER) 18 U/L 6-55 (test code = 347) EGFR (BEAKER) (test 11 mL/min/1.73 ESTIMA FLORENCE GFR IS code = 1092) sq m NOT ACCURATE CREATININE CLEARANCE IN PREDICTING GLOMERULAR FILTRATION RATE . ESTIMATED GFR I S NOT APPLICABLE FOR DIALYSIS PATIEN TS. [id number] 02:21:00 Test Item Value Reference Range Interpretation Comments PHOSPHORUS (BEAKER) (test code = 3.2 mg/dL 2.3-4.7 604) [id number] 02:21:00 Test Item Value Reference Range Interpretation Comments MAGNESIUM (BEAKER) (test code = 1.8 mg/dL 1.6-2.6 627) CALCIUM, [id number] 02:03:00 Test Item Value Reference Range Interpretation Comments CALCIUM IONIZED (BEAKER) (test 1.06 mmol/L 1.12-1.27 L code = 698) PH, BLOOD (BEAKER) (test code = 7.39 1810) CBC W/PLT COUNT & AUTO [id number] 01:57:00 Test Item Value Reference Range Interpretation Comments WHITE BLOOD CELL COUNT (BEAKER) 6.7 K/ L 3.5-10.5 (test code = 775) RED BLOOD CELL COUNT (BEAKER) 2.84 M/ L 3.93-5.22 L (test code = 761) HEMOGLOBIN (BEAKER) (test code = 8.7 GM/DL 11.2-15.7 L 410) HEMATOCRIT (BEAKER) (test code = 26.7 % 34.1-44.9 L 411) MEAN CORPUSCULAR VOLUME (BEAKER) 94.0 fL 79.4-94.8 (test code = 753) MEAN CORPUSCULAR HEMOGLOBIN 30.6 pg 25.6-32.2 (BEAKER) (test code = 751) MEAN CORPUSCULAR HEMOGLOBIN CONC 32.6 GM/DL 32.2-35.5 (BEAKER) (test code = 752) RED CELL DISTRIBUTION WIDTH 14.0 % 11.7-14.4 (BEAKER) (test code = 412) PLATELET COUNT (BEAKER) (test 252 K/CU MM 150-450 code = 756) MEAN PLATELET VOLUME (BEAKER) 8.9 fL 9.4-12.3 L (test code = 754) NUCLEATED RED BLOOD CELLS 0 /100 WBC 0-0 (BEAKER) (test code = 413) NEUTROPHILS RELATIVE PERCENT 81 % (BEAKER) (test code = 429) LYMPHOCYTES RELATIVE PERCENT 11 % (BEAKER) (test code = 430) MONOCYTES RELATIVE PERCENT 7 % (BEAKER) (test code = 431) EOSINOPHILS RELATIVE PERCENT 0 % (BEAKER) (test code = 432) BASOPHILS RELATIVE PERCENT 1 % (BEAKER) (test code = 437) NEUTROPHILS ABSOLUTE COUNT 5.39 K/ L 1.56-6.13 (BEAKER) (test code = 670) LYMPHOCYTES ABSOLUTE COUNT 0.73 K/ L 1.18-3.74 L (BEAKER) (test code = 414) MONOCYTES ABSOLUTE COUNT (BEAKER) 0.43 K/ L 0.24-0.36 H (test code = 415) EOSINOPHILS ABSOLUTE COUNT 0.02 K/ L 0.04-0.36 L (BEAKER) (test code = 416) BASOPHILS ABSOLUTE COUNT (BEAKER) 0.06 K/ L 0.01-0.08 (test code = 417) IMMATURE GRANULOCYTES-RELATIVE 0 % 0-1 PERCENT (BEAKER) (test code = 2801) POCT-GLUCOSE [id number] 21:08:00 Test Item Value Reference Range Interpretation Comments POC-GLUCOSE METER 119 mg/dL 70-110 H TESTED AT [facility] [address] (BEAKER) (test code = [place] 1538) [id number] POCT-GLUCOSE [id number] 20:09:00 Test Item Value Reference Range Interpretation Comments POC-GLUCOSE METER 111 mg/dL 70-110 H TESTED AT [facility] 67[address] (BEAKER) (test code = [place] 1538) [id number] 19:38:00 Test Item Value Reference Range Interpretation Comments PARTIAL THROMBOPLASTIN TIME 73.3 seconds 22.5-36.0 H (BEAKER) (test code = 760) BASIC METABOLIC [id number] 16:43:00 Test Item Value Reference Range Interpretation Comments SODIUM (BEAKER) 140 meq/L 136-145 (test code = 381) POTASSIUM (BEAKER) 3.5 meq/L 3.5-5.1 (test code = 379) CHLORIDE (BEAKER) 101 meq/L 98-107 (test code = 382) CO2 (BEAKER) (test 29 meq/L 22-29 code = 355) BLOOD UREA NITROGEN 30 mg/dL 7-21 H (BEAKER) (test code = 354) CREATININE (BEAKER) 5.94 mg/dL 0.57-1.25 H (test code = 358) GLUCOSE RANDOM 115 mg/dL 70-105 H (BEAKER) (test code = 652) CALCIUM (BEAKER) 8.8 mg/dL 8.4-10.2 (test code = 697) EGFR (AKER) (test 7 mL/min/1.73 ESTIMAT ED GFR IS code = 1092) sq m NOT ACCURATE CREATININE CLEARANCE IN PREDICTING GLOMERULAR FILTRATION RATE . ESTIMATED GFR I S NOT APPLICABLE FOR DIALYSIS PATIEN TS. POCT-GLUCOSE [id number] 13:17:00 Test Item Value Reference Range Interpretation Comments POC-GLUCOSE METER 143 mg/dL 70-110 H TESTED AT [facility] 6720 ([facility]) (test code = DOMINIQUE Meyer [place]) [address] URINE PROTEIN ELECTROPHORESIS, [id number] 10:08:00 Test Item Value Reference Range Interpretation Comments PROTEIN, URINE 66 mg/dL 0-14 H (BEAKER) (test code = 1569) ALBUMIN URINE ELP 38.9 % (BEAKER) (test code = 1018) GAMMA GLOBULIN URINE 61.1 % (BEAKER) (test code = 1015) UPEP, ID-[id number] (AKER) Indistinct banding in (test code = 2604) gamma region. Urine MARKEL ordered for further clarification. [id number] Cyn Burgos MD ([facility]) (test code = (electronic signature) 9991) [id number] 09:20:00 Test Item Value Reference Range Interpretation Comments PARTIAL THROMBOPLASTIN TIME 41.1 seconds 22.5-36.0 H (BEAKER) (test code = 760) Prior to initiating heparinPROTEIN ELECTROPHORESIS, [id number] 08:56:00 Test Item Value Reference Range Interpretation Comments ALBUMIN FRACTION 3.2 g/dL 3.5-5.5 L (BEAKER) (test code = 405) ALPHA 1 FRACTION 0.2 g/dL 0.2-0.4 (BEAKER) (test code = 389) ALPHA 2 FRACTION 1.0 g/dL 0.5-0.9 H (BEAKER) (test code = 390) BETA FRACTION (BEAKER) 0.7 g/dL 0.6-1.1 (test code = 392) GAMMA GLOBULIN 0.7 g/dL 0.7-1.7 FRACTION (BEAKER) (test code = 391) INTERPRETATION-119 Pattern suggestive of (BEAKER) (test code = acute inflammation. No 2615) monoclonal bands detected. [id number] Cyn Burgos MD (BEAKER) (test code = (electronic signature) 2616) PROTEIN TOTAL SERUM, 5.9 gm/dL 6.0-8.3 L SPEP (BEAKER) (test code = 1990) POCT-GLUCOSE [id number] 08:36:00 Test Item Value Reference Range Interpretation Comments POC-GLUCOSE METER 144 mg/dL 70-110 H TESTED AT [facility] 6720 (BEAKER) (test code = DOMINI[place] [address]) [address] COMPREHENSIVE METABOLIC [id number] 05:48:00 Test Item Value Reference Range Interpretation Comments TOTAL PROTEIN 6.9 gm/dL 6.0-8.3 (BEAKER) (test code = 770) ALBUMIN (BEAKER) 4.0 g/dL 3.5-5.0 (test code = 1145) ALKALINE PHOSPHATASE 78 U/L 40-150 (BEAKER) (test code = 346) BILIRUBIN TOTAL 0.6 mg/dL 0.2-1.2 (BEAKER) (test code = 377) SODIUM (BEAKER) (test 139 meq/L 136-145 code = 381) POTASSIUM (BEAKER) 3.3 meq/L 3.5-5.1 L (test code = 379) CHLORIDE (BEAKER) 101 meq/L 98-107 (test code = 382) CO2 (BEAKER) (test 25 meq/L 22-29 code = 355) BLOOD UREA NITROGEN 37 mg/dL 7-21 H (BEAKER) (test code = 354) CREATININE (BEAKER) 7.42 mg/dL 0.57-1.25 H (test code = 358) GLUCOSE RANDOM 134 mg/dL 70-105 H (BEAKER) (test code = 652) CALCIUM (BEAKER) 9.0 mg/dL 8.4-10.2 (test code = 697) AST (SGOT) (BEAKER) 25 U/L 5-34 (test code = 353) ALT (SGPT) (BEAKER) 19 U/L 6-55 (test code = 347) EGFR (BEAKER) (test 5 mL/min/1.73 ESTIMAT ED GFR IS code = 1092) sq m NOT ACCURATE CREATININE CLEARANCE IN PREDICTING GLOMERULAR FILTRATION RATE . ESTIMATED GFR I S NOT APPLICABLE FOR DIALYSIS PATIEN TS. [id number] 05:01:00 Test Item Value Reference Range Interpretation Comments PHOSPHORUS (BEAKER) (test code = 4.9 mg/dL 2.3-4.7 H 604) [id number] 05:01:00 Test Item Value Reference Range Interpretation Comments MAGNESIUM (BEAKER) (test code = 1.9 mg/dL 1.6-2.6 627) CBC W/PLT COUNT & AUTO [id number] 04:32:00 Test Item Value Reference Range Interpretation Comments WHITE BLOOD CELL COUNT (BEAKER) 6.2 K/ L 3.5-10.5 (test code = 775) RED BLOOD CELL COUNT (BEAKER) 2.94 M/ L 3.93-5.22 L (test code = 761) HEMOGLOBIN (BEAKER) (test code = 9.0 GM/DL 11.2-15.7 L 410) HEMATOCRIT (BEAKER) (test code = 27.5 % 34.1-44.9 L 411) MEAN CORPUSCULAR VOLUME (BEAKER) 93.5 fL 79.4-94.8 (test code = 753) MEAN CORPUSCULAR HEMOGLOBIN 30.6 pg 25.6-32.2 (BEAKER) (test code = 751) MEAN CORPUSCULAR HEMOGLOBIN CONC 32.7 GM/DL 32.2-35.5 (BEAKER) (test code = 752) RED CELL DISTRIBUTION WIDTH 13.9 % 11.7-14.4 (BEAKER) (test code = 412) PLATELET COUNT (BEAKER) (test 244 K/CU MM 150-450 code = 756) MEAN PLATELET VOLUME (BEAKER) 9.4 fL 9.4-12.3 (test code = 754) NUCLEATED RED BLOOD CELLS 0 /100 WBC 0-0 (BEAKER) (test code = 413) NEUTROPHILS RELATIVE PERCENT 77 % (BEAKER) (test code = 429) LYMPHOCYTES RELATIVE PERCENT 13 % (BEAKER) (test code = 430) MONOCYTES RELATIVE PERCENT 8 % (BEAKER) (test code = 431) EOSINOPHILS RELATIVE PERCENT 1 % (BEAKER) (test code = 432) BASOPHILS RELATIVE PERCENT 1 % (BEAKER) (test code = 437) NEUTROPHILS ABSOLUTE COUNT 4.79 K/ L 1.56-6.13 (BEAKER) (test code = 670) LYMPHOCYTES ABSOLUTE COUNT 0.80 K/ L 1.18-3.74 L (BEAKER) (test code = 414) MONOCYTES ABSOLUTE COUNT (BEAKER) 0.51 K/ L 0.24-0.36 H (test code = 415) EOSINOPHILS ABSOLUTE COUNT 0.04 K/ L 0.04-0.36 (BEAKER) (test code = 416) BASOPHILS ABSOLUTE COUNT (BEAKER) 0.05 K/ L 0.01-0.08 (test code = 417) IMMATURE GRANULOCYTES-RELATIVE 0 % 0-1 PERCENT (BEAKER) (test code = 2801) CALCIUM, [id number] 04:19:00 Test Item Value Reference Range Interpretation Comments CALCIUM IONIZED (BEAKER) (test 1.06 mmol/L 1.12-1.27 L code = 698) PH, BLOOD (BEAKER) (test code = 7.37 1810) POCT-GLUCOSE [id number] 22:00:00 Test Item Value Reference Range Interpretation Comments POC-GLUCOSE METER 116 mg/dL 70-110 H TESTED AT [place] [address] [facility] (test code = [facility] 1538) [address] POCT-GLUCOSE [id number] 17:59:00 Test Item Value Reference Range Interpretation Comments POC-GLUCOSE METER 130 mg/dL 70-110 H TESTED AT [place] [address] ([facility] (test code = [facility] 1538) [address] BASIC METABOLIC [id number] 17:01:00 Test Item Value Reference Range Interpretation Comments SODIUM (BEAKER) 139 meq/L 136-145 (test code = 381) POTASSIUM (BEAKER) 3.5 meq/L 3.5-5.1 (test code = 379) CHLORIDE (BEAKER) 97 meq/L 98-107 L (test code = 382) CO2 (BEAKER) (test 29 meq/L 22-29 code = 355) BLOOD UREA NITROGEN 68 mg/dL 7-21 H (BEAKER) (test code = 354) CREATININE (AKER) 11.26 mg/dL 0.57-1.25 H (test code = 358) GLUCOSE RANDOM 113 mg/dL 70-105 H (AKER) (test code = 652) CALCIUM (BEAKER) 8.2 mg/dL 8.4-10.2 L (test code = 697) EGFR ([facility]) (test 3 mL/min/1.73 ESTIMAT ED GFR IS code = 1092) sq m NOT ACCURATE CREATININE CLEARANCE IN PREDICTING GLOMERULAR FILTRATION RATE . ESTIMATED GFR I S NOT APPLICABLE FOR DIALYSIS PATIEN TS. RHEUMATOID FACTOR AB, REFLEX TO [id number] 14:07:00 Test Item Value Reference Range Interpretation Comments RHEUMATOID FACTOR ([facility]) (test Negative code = 573) POCT-GLUCOSE [id number] 12:15:00 Test Item Value Reference Range Interpretation Comments POC-GLUCOSE METER 152 mg/dL 70-110 H TESTED AT [facility] [address] ([facility]) (test code = [place] [address]) [address] ANTI-NUCLEAR ANTIBODY (JUAN)2018-11-27 10:16:00 Test Item Value Reference Range Interpretation Comments ANTI-NUCLEAR ANTIBODY (JUAN) ([facility]) Negative Negative (test code = 418) Test performed by IFA method.Test performed by IFA method.T4, [id number] 06:28:00 Test Item Value Reference Range Interpretation Comments FREE T4 ([facility]) (test code = 655) 0.57 ng/dL 0.70-1.48 L [id number] 05:43:00 Test Item Value Reference Range Interpretation Comments FERRITIN (BEAKER) (test code = 361) 264 ng/mL 5-275 TSH/FREE T4 IF [id number] 05:30:00 Test Item Value Reference Range Interpretation Comments THYROID STIMULATING HORMONE 8.31 uIU/mL 0.35-4.94 H (AKER) (test code = 772) HEPATITIS PANEL, [id number] 05:26:00 Test Item Value Reference Range Interpretation Comments HEPATITIS A IGM ANTIBODY (BEAKER) Nonreactive Nonreactive (test code = 498) HEPATITIS B CORE IGM ANTIBODY Nonreactive Nonreactive (BEAKER) (test code = 645) HEPATITIS C ANTIBODY (BEAKER) Nonreactive Nonreactive (test code = 367) HEPATITIS B SURFACE ANTIGEN (2) Nonreactive Nonreactive (BEAKER) (test code = 2585) COMPREHENSIVE METABOLIC [id number] 05:13:00 Test Item Value Reference Range Interpretation Comments TOTAL PROTEIN 6.3 gm/dL 6.0-8.3 (BEAKER) (test code = 770) ALBUMIN (BEAKER) 3.7 g/dL 3.5-5.0 (test code = 1145) ALKALINE PHOSPHATASE 77 U/L 40-150 (BEAKER) (test code = 346) BILIRUBIN TOTAL 0.5 mg/dL 0.2-1.2 (BEAKER) (test code = 377) SODIUM (BEAKER) (test 140 meq/L 136-145 code = 381) POTASSIUM (BEAKER) 3.6 meq/L 3.5-5.1 (test code = 379) CHLORIDE (BEAKER) 98 meq/L 98-107 (test code = 382) CO2 (BEAKER) (test 25 meq/L 22-29 code = 355) BLOOD UREA NITROGEN 67 mg/dL 7-21 H (BEAKER) (test code = 354) CREATININE (BEAKER) 11.11 mg/dL 0.57-1.25 H (test code = 358) GLUCOSE RANDOM 101 mg/dL 70-105 (BEAKER) (test code = 652) CALCIUM (BEAKER) 8.2 mg/dL 8.4-10.2 L (test code = 697) AST (SGOT) (BEAKER) 27 U/L 5-34 (test code = 353) ALT (SGPT) (BEAKER) 20 U/L 6-55 (test code = 347) EGFR (BEAKER) (test 3 mL/min/1.73 ESTIMAT ED GFR IS code = 1092) sq m NOT ACCURATE CREATININE CLEARANCE IN PREDICTING GLOMERULAR FILTRATION RATE . ESTIMATED GFR I S NOT APPLICABLE FOR DIALYSIS PATIEN TS. COMPLEMENT COMPONENT [id number] 05:10:00 Test Item Value Reference Range Interpretation Comments C4 COMPLEMENT (BEAKER) (test code = 43 mg/dL 15-57 394) COMPLEMENT COMPONENT [id number] 05:10:00 Test Item Value Reference Range Interpretation Comments C3 COMPLEMENT (BEAKER) (test code = 96 mg/dL 82-193 393) IRON, TIBC, % SAT. (WITHOUT FERRITIN)2018-11-27 05:10:00 Test Item Value Reference Range Interpretation Comments IRON (BEAKER) (test code = 547) 23.0 ug/dL 40.0-160.0 L TOTAL IRON BINDING CAPACITY 274 ug/dL 250-450 (BEAKER) (test code = 769) IRON % SATURATION (2) (BEAKER) 8 % 20-55 L (test code = 2590) B-TYPE NATRIURETIC FACTOR (BNP)2018-11-27 05:02:00 Test Item Value Reference Range Interpretation Comments B-TYPE NATRIURETIC PEPTIDE 1874 pg/mL 0-100 H (BEAKER) (test code = 700) URIC [id number] 05:02:00 Test Item Value Reference Range Interpretation Comments URIC ACID (BEAKER) (test code = 6.2 mg/dL 2.6-7.2 773) [id number] 05:02:00 Test Item Value Reference Range Interpretation Comments MAGNESIUM (BEAKER) (test code = 2.1 mg/dL 1.6-2.6 627) [id number] 05:02:00 Test Item Value Reference Range Interpretation Comments PHOSPHORUS (BEAKER) (test code = 8.7 mg/dL 2.3-4.7 H 604) CREATINE KINASE (CK)2018-11-27 05:02:00 Test Item Value Reference Range Interpretation Comments CREATINE KINASE TOTAL (BEAKER) (test 546 U/L 29-200 H code = 380) RETICULOCYTE [id number] 04:40:00 Test Item Value Reference Range Interpretation Comments RETICULOCYTE COUNT PCT (BEAKER) (test 0.9 % 0.5-1.7 code = 575) CBC W/PLT COUNT & AUTO [id number] 04:40:00 Test Item Value Reference Range Interpretation Comments WHITE BLOOD CELL COUNT (BEAKER) 6.0 K/ L 3.5-10.5 (test code = 775) RED BLOOD CELL COUNT (BEAKER) 3.13 M/ L 3.93-5.22 L (test code = 761) HEMOGLOBIN (BEAKER) (test code = 9.6 GM/DL 11.2-15.7 L 410) HEMATOCRIT (BEAKER) (test code = 28.5 % 34.1-44.9 L 411) MEAN CORPUSCULAR VOLUME (BEAKER) 91.1 fL 79.4-94.8 (test code = 753) MEAN CORPUSCULAR HEMOGLOBIN 30.7 pg 25.6-32.2 (BEAKER) (test code = 751) MEAN CORPUSCULAR HEMOGLOBIN CONC 33.7 GM/DL 32.2-35.5 (BEAKER) (test code = 752) RED CELL DISTRIBUTION WIDTH 14.2 % 11.7-14.4 (BEAKER) (test code = 412) PLATELET COUNT (BEAKER) (test 235 K/CU MM 150-450 code = 756) MEAN PLATELET VOLUME (BEAKER) 9.1 fL 9.4-12.3 L (test code = 754) NUCLEATED RED BLOOD CELLS 0 /100 WBC 0-0 (BEAKER) (test code = 413) NEUTROPHILS RELATIVE PERCENT 76 % (BEAKER) (test code = 429) LYMPHOCYTES RELATIVE PERCENT 13 % (BEAKER) (test code = 430) MONOCYTES RELATIVE PERCENT 9 % (BEAKER) (test code = 431) EOSINOPHILS RELATIVE PERCENT 1 % (BEAKER) (test code = 432) BASOPHILS RELATIVE PERCENT 1 % (BEAKER) (test code = 437) NEUTROPHILS ABSOLUTE COUNT 4.57 K/ L 1.56-6.13 (BEAKER) (test code = 670) LYMPHOCYTES ABSOLUTE COUNT 0.81 K/ L 1.18-3.74 L (BEAKER) (test code = 414) MONOCYTES ABSOLUTE COUNT (BEAKER) 0.53 K/ L 0.24-0.36 H (test code = 415) EOSINOPHILS ABSOLUTE COUNT 0.04 K/ L 0.04-0.36 (BEAKER) (test code = 416) BASOPHILS ABSOLUTE COUNT (BEAKER) 0.05 K/ L 0.01-0.08 (test code = 417) IMMATURE GRANULOCYTES-RELATIVE 1 % 0-1 PERCENT (BEAKER) (test code = 2801) CALCIUM, [id number] 04:33:00 Test Item Value Reference Range Interpretation Comments CALCIUM IONIZED (BEAKER) (test 1.00 mmol/L 1.12-1.27 L code = 698) PH, BLOOD (BEAKER) (test code = 7.36 1810) POCT-GLUCOSE [id number] 04:20:00 Test Item Value Reference Range Interpretation Comments POC-GLUCOSE METER 110 mg/dL 70-110 TESTED AT [facility] 6720 (BEAKER) (test code = DOMINIQUE Meyer [facility] 1538) [address] BASIC METABOLIC [id number] 20:54:00 Test Item Value Reference Range Interpretation Comments SODIUM (BEAKER) 139 meq/L 136-145 (test code = 381) POTASSIUM (BEAKER) 3.5 meq/L 3.5-5.1 (test code = 379) CHLORIDE (BEAKER) 98 meq/L 98-107 (test code = 382) CO2 (BEAKER) (test 25 meq/L 22-29 code = 355) BLOOD UREA NITROGEN 68 mg/dL 7-21 H (BEAKER) (test code = 354) CREATININE (BEAKER) 10.51 mg/dL 0.57-1.25 H (test code = 358) GLUCOSE RANDOM 103 mg/dL 70-105 (BEAKER) (test code = 652) CALCIUM (BEAKER) 8.1 mg/dL 8.4-10.2 L (test code = 697) EGFR (BEAKER) (test 4 mL/min/1.73 ESTIMAT ED GFR IS code = 1092) sq m NOT ACCURATE CREATININE CLEARANCE IN PREDICTING GLOMERULAR FILTRATION RATE . ESTIMATED GFR I S NOT APPLICABLE FOR DIALYSIS PATIEN TS. POCT-GLUCOSE [id number] 18:14:00 Test Item Value Reference Range Interpretation Comments POC-GLUCOSE METER 109 mg/dL 70-110 TESTED AT [place] [address] [facility] (test code = DOMINIQUE Meyer [facility] 1538) [address] EOSINOPHIL SMEAR, [id number] 16:26:00 Test Item Value Reference Range Interpretation Comments EOSINOPHIL SMEAR, URINE Positive = greater No EOS seen A (BEAKER) (test code = than 5% WBCs are EOS 1851) CREATININE, RANDOM [id number] 15:55:00 Test Item Value Reference Range Interpretation Comments CREATININE URINE (BEAKER) (test 43.0 mg/dL code = 375) Reference Range: No NormalsPROTEIN, RANDOM [id number] 15:55:00 Test Item Value Reference Range Interpretation Comments PROTEIN, URINE (BEAKER) (test code = 66 mg/dL 0-14 H 1569) SODIUM, RANDOM [id number] 15:55:00 Test Item Value Reference Range Interpretation Comments SODIUM URINE (BEAKER) (test code = 89 meq/L 243) Reference Range: No NormalsURINALYSIS W/ [id number] 15:52:00 Test Item Value Reference Range Interpretation Comments COLOR (BEAKER) (test code = 470) Light Yellow CLARITY (BEAKER) (test code = Clear 469) SPECIFIC GRAVITY UA (BEAKER) 1.006 1.001-1.035 (test code = 468) PH UA (BEAKER) (test code = 467) 5.5 5.0-8.0 PROTEIN UA (BEAKER) (test code = 70 mg/dL Negative A 464) GLUCOSE UA (BEAKER) (test code = Negative Negative 365) KETONES UA (BEAKER) (test code = Negative Negative 371) BILIRUBIN UA (BEAKER) (test code Negative Negative = 462) BLOOD UA (BEAKER) (test code = Moderate Negative A 461) NITRITE UA (BEAKER) (test code = Negative Negative 465) LEUKOCYTE ESTERASE UA (BEAKER) Moderate Negative A (test code = 466) UROBILINOGEN UA (BEAKER) (test 0.2 mg/dL 0.2-1.0 code = 463) RBC UA (BEAKER) (test code = 6 /HPF 519) WBC UA (BEAKER) (test code = 29 /HPF 520) SOURCE(BEAKER) (test code = 2795) U/S, RENAL, [id number] 15:05:00Reason for exam:->renal failureFINAL REPORT TECHNIQUE: Grayscale [...] MDReport Verified Date/Time: 11/26/2018 15:05:19 Reading Location: [address] Radiology Reading Room ON [facility] METABOLIC PANEL 2018-11-26 11:50:00 Test Item Value Reference Range Interpretation Comments SODIUM (BEAKER) 139 meq/L 136-145 (test code = 381) POTASSIUM (BEAKER) 4.0 meq/L 3.5-5.1 (test code = 379) CHLORIDE (BEAKER) 95 meq/L 98-107 L (test code = 382) CO2 (BEAKER) (test 22 meq/L 22-29 code = 355) BLOOD UREA NITROGEN 113 mg/dL 7-21 H (BEAKER) (test code = 354) CREATININE (BEAKER) 15.15 mg/dL 0.57-1.25 H (test code = 358) GLUCOSE RANDOM 91 mg/dL 70-105 (BEAKER) (test code = 652) CALCIUM (BEAKER) 8.0 mg/dL 8.4-10.2 L (test code = 697) EGFR (BEAKER) (test 2 mL/min/1.73 ESTIMAT ED GFR IS code = 1092) sq m NOT ACCURATE CREATININE CLEARANCE IN PREDICTING GLOMERULAR FILTRATION RATE . ESTIMATED GFR I S NOT APPLICABLE FOR DIALYSIS PATIEN TS. HEMOGLOBIN [id number] 11:39:00 Test Item Value Reference Range Interpretation Comments HEMOGLOBIN A1C (BEAKER) (test code = 7.2 % 4.3-6.1 H 368) POCT-GLUCOSE [id number] 11:34:00 Test Item Value Reference Range Interpretation Comments POC-GLUCOSE METER 96 mg/dL 70-110 TESTED AT [facility] 6720 (BEAKER) (test code = JONEID Betsy [facility] [address] 1538) CREATININE, RANDOM [id number] 08:00:00 Test Item Value Reference Range Interpretation Comments CREATININE URINE (BEAKER) (test 55.9 mg/dL code = 375) Reference Range: No NormalsSODIUM, RANDOM [id number] 08:00:00 Test Item Value Reference Range Interpretation Comments SODIUM URINE (BEAKER) (test code = 69 meq/L 243) Reference Range: No NormalsUREA NITROGEN, RANDOM [id number] 08:00:00 Test Item Value Reference Range Interpretation Comments UREA NITROGEN URINE (BEAKER) (test 207 mg/dL code = 538) Reference Range: No NormalsBASIC METABOLIC [id number] 07:16:00 Test Item Value Reference Range Interpretation Comments SODIUM (BEAKER) 133 meq/L 136-145 L (test code = 381) POTASSIUM (BEAKER) 4.3 meq/L 3.5-5.1 (test code = 379) CHLORIDE (BEAKER) 95 meq/L 98-107 L (test code = 382) CO2 (BEAKER) (test 15 meq/L 22-29 L code = 355) BLOOD UREA NITROGEN 114 mg/dL 7-21 H (BEAKER) (test code = 354) CREATININE (BEAKER) 14.93 mg/dL 0.57-1.25 H (test code = 358) GLUCOSE RANDOM 77 mg/dL 70-105 (BEAKER) (test code = 652) CALCIUM (BEAKER) 8.2 mg/dL 8.4-10.2 L (test code = 697) EGFR (BEAKER) (test 2 mL/min/1.73 ESTIMAT ED GFR IS code = 1092) sq m NOT ACCURATE CREATININE CLEARANCE IN PREDICTING GLOMERULAR FILTRATION RATE . ESTIMATED GFR I S NOT APPLICABLE FOR DIALYSIS PATIEN TS. HEPATITIS PANEL, [id number] 07:11:00 Test Item Value Reference Range Interpretation Comments HEPATITIS A IGM ANTIBODY (BEAKER) Nonreactive Nonreactive (test code = 498) HEPATITIS B CORE IGM ANTIBODY Nonreactive Nonreactive (BEAKER) (test code = 645) HEPATITIS C ANTIBODY (BEAKER) Nonreactive Nonreactive (test code = 367) HEPATITIS B SURFACE ANTIGEN (2) Nonreactive Nonreactive (BEAKER) (test code = 2585) [id number] 07:09:00 Test Item Value Reference Range Interpretation Comments MAGNESIUM (BEAKER) (test code = 2.6 mg/dL 1.6-2.6 627) TROPONIN [id number] 07:02:00 Test Item Value Reference Range Interpretation Comments TROPONIN I (BEAKER) (test code = 0.09 ng/mL 0.00-0.03 H 397) Troponin I (TnI) levels must be interpreted [...] acute neurological disease, and persistent tachyarrhythmia.URINALYSIS W/ [id number] 06:20:00 Test Item Value Reference Range Interpretation Comments COLOR (BEAKER) (test code = 470) Light Yellow CLARITY (BEAKER) (test code = Hazy 469) SPECIFIC GRAVITY UA (BEAKER) 1.008 1.001-1.035 (test code = 468) PH UA (BEAKER) (test code = 467) 5.5 5.0-8.0 PROTEIN UA (BEAKER) (test code = 200 mg/dL Negative A 464) GLUCOSE UA (BEAKER) (test code = Negative Negative 365) KETONES UA (BEAKER) (test code = Negative Negative 371) BILIRUBIN UA (BEAKER) (test code Negative Negative = 462) BLOOD UA (BEAKER) (test code = Moderate Negative A 461) NITRITE UA (BEAKER) (test code = Negative Negative 465) LEUKOCYTE ESTERASE UA (BEAKER) Large Negative A (test code = 466) UROBILINOGEN UA (BEAKER) (test 0.2 mg/dL 0.2-1.0 code = 463) RBC UA (BEAKER) (test code = 35 /HPF 519) WBC UA (BEAKER) (test code = 189 /HPF 520) BACTERIA (BEAKER) (test code = Rare 517) SQUAMOUS EPITHELIAL (BEAKER) 5 /HPF (test code = 516) AMORPHOUS CRYSTALS (BEAKER) Rare (test code = 1584) SOURCE(BEAKER) (test code = 2795) BLOOD GAS, [id number] 06:08:00 Test Item Value Reference Range Interpretation Comments PH VENOUS (BEAKER) (test code = 7.27 7.32-7.42 L 701) PCO2 VENOUS (BEAKER) (test code = 38 mmHg 41-51 L 755) PO2 VENOUS (BEAKER) (test code = 48 mmHg 25-40 H 702) O2 SATURATION VENOUS (BEAKER) 78.4 % 40.0-70.0 H (test code = 703) HCO3 VENOUS (BEAKER) (test code = 17 mmol/L 21-29 L 705) BASE EXCESS VENOUS (BEAKER) (test -9.2 mmol/L -2.0-3.0 L code = 704) PATIENT TEMPERATURE ([facility]) 37.0 C (test code = 1818) FIO2 ([facility]) (test code = 1819) 21.0 % POCT-GLUCOSE [id number] 05:57:00 Test Item Value Reference Range Interpretation Comments POC-GLUCOSE METER 84 mg/dL 70-110 TESTED AT [facility] 6720 ([facility]) (test code = [place] [address] 1538) [id number] 04:20:00 Test Item Value Reference Range Interpretation Comments FERRITIN ([facility]) (test code = 361) 241 ng/mL 5-275 HIV-1 ANTIGEN WITH HIV-1/2 [id number] 04:15:00 Test Item Value Reference Range Interpretation Comments HIV-1 ANTIGEN WITH HIV 1\T\2 Nonreactive Nonreactive ANTIBODY (2) ([facility]) (test code = 2586) RAD, CHEST, 1 VIEW, NON [id number] 04:02:00Reason for exam:->DIALYSIS CATHTER PLACEMENTShould this be [...] Signed: Karla Nieves MDReport Verified Date/Time: 11/26/2018 04:02:49 PTH, [id number] 04:00:00 Test Item Value Reference Range Interpretation Comments PARATHYROID HORMONE INTACT 375.7 pg/mL 8.5-72.5 H ([facility]) (test code = 577) IRON, TIBC, % SAT. (WITHOUT FERRITIN)2018-11-26 03:54:00 Test Item Value Reference Range Interpretation Comments IRON (ANA) (test code = 547) 47.0 ug/dL 40.0-160.0 TOTAL IRON BINDING CAPACITY 309 ug/dL 250-450 (BEAKER) (test code = 769) IRON % SATURATION (2) (BEAKER) 15 % 20-55 L (test code = 2590) BLOOD GAS, [id number] 03:31:00 Test Item Value Reference Range Interpretation Comments PH VENOUS (BEAKER) (test code = 7.21 7.32-7.42 L 701) PCO2 VENOUS (BEAKER) (test code 36 mmHg 41-51 L = 755) PO2 VENOUS (BEAKER) (test code = 49 mmHg 25-40 H 702) O2 SATURATION VENOUS (BEAKER) 76.7 % 40.0-70.0 H (test code = 703) HCO3 VENOUS (BEAKER) (test code 14 mmol/L 21-29 L = 705) BASE EXCESS VENOUS (BEAKER) -13.1 mmol/L -2.0-3.0 L (test code = 704) PATIENT TEMPERATURE (BEAKER) 37.0 C (test code = 1818) FIO2 (BEAKER) (test code = 1819) 21.0 % T4, [id number] 02:37:00 Test Item Value Reference Range Interpretation Comments FREE T4 (BEAKER) (test code = 655) 0.49 ng/dL 0.70-1.48 L TSH/FREE T4 IF [id number] 01:57:00 Test Item Value Reference Range Interpretation Comments THYROID STIMULATING HORMONE 14.30 uIU/mL 0.35-4.94 H (BEAKER) (test code = 772) TROPONIN [id number] 01:39:00 Test Item Value Reference Range Interpretation Comments TROPONIN I (BEAKER) (test code = 0.09 ng/mL 0.00-0.03 H 397) Troponin I (TnI) levels must be interpreted [...] disease, and persistent tachyarrhythmia.B-TYPE NATRIURETIC FACTOR (BNP) 2018-11-26 01:38:00 Test Item Value Reference Range Interpretation Comments B-TYPE NATRIURETIC PEPTIDE 1604 pg/mL 0-100 H (BEAKER) (test code = 700) [id number] 01:35:00 Test Item Value Reference Range Interpretation Comments PHOSPHORUS (BEAKER) (test code = 12.3 mg/dL 2.3-4.7 HH 604) COMPREHENSIVE METABOLIC [id number] 01:34:00 Test Item Value Reference Range Interpretation Comments TOTAL PROTEIN 7.0 gm/dL 6.0-8.3 (BEAKER) (test code = 770) ALBUMIN (BEAKER) 4.0 g/dL 3.5-5.0 (test code = 1145) ALKALINE PHOSPHATASE 87 U/L 40-150 (BEAKER) (test code = 346) BILIRUBIN TOTAL 0.6 mg/dL 0.2-1.2 (BEAKER) (test code = 377) SODIUM (BEAKER) (test 131 meq/L 136-145 L code = 381) POTASSIUM (BEAKER) 4.3 meq/L 3.5-5.1 (test code = 379) CHLORIDE (BEAKER) 95 meq/L 98-107 L (test code = 382) CO2 (BEAKER) (test 12 meq/L 22-29 L code = 355) BLOOD UREA NITROGEN 113 mg/dL 7-21 H (BEAKER) (test code = 354) CREATININE (BEAKER) 15.02 mg/dL 0.57-1.25 H (test code = 358) GLUCOSE RANDOM 99 mg/dL 70-105 (BEAKER) (test code = 652) CALCIUM (BEAKER) 8.6 mg/dL 8.4-10.2 (test code = 697) AST (SGOT) (BEAKER) 27 U/L 5-34 (test code = 353) ALT (SGPT) (BEAKER) 27 U/L 6-55 (test code = 347) EGFR (BEAKER) (test 2 mL/min/1.73 ESTIMAT ED GFR IS code = 1092) sq m NOT ACCURATE CREATININE CLEARANCE IN PREDICTING GLOMERULAR FILTRATION RATE . ESTIMATED GFR I S NOT APPLICABLE FOR DIALYSIS PATIEN TS. LIPID [id number] 01:33:00 Test Item Value Reference Range Interpretation Comments TRIGLYCERIDES (BEAKER) (test code = 201 mg/dL 540) CHOLESTEROL (BEAKER) (test code = 112 mg/dL 631) HDL CHOLESTEROL (BEAKER) (test code 25 mg/dL = 976) LDL CHOLESTEROL CALCULATED (BEAKER) 47 mg/dL (test code = 633) Triglyceride Reference Range: Low Risk <150 Borderline 150-199 High Risk 200-499 Very High Risk >=500Cholesterol Reference Range: Low Risk <200 Borderline 200-239 High Risk >240HDL Cholesterol Reference Range: Low Risk >=60 High Risk <40LDL Cholesterol Reference Range: Optimal <100 Near Optimal 100-129 Borderline 130-159 High 160-189 Very High >=190CREATINE KINASE (CK)[id number] 01:33:00 Test Item Value Reference Range Interpretation Comments CREATINE KINASE TOTAL (BEAKER) (test 668 U/L 29-200 H code = 380) [id number] 01:31:00 Test Item Value Reference Range Interpretation Comments MAGNESIUM (BEAKER) (test code = 2.6 mg/dL 1.6-2.6 627) [id number] 01:29:00 Test Item Value Reference Range Interpretation Comments PROTIME (BEAKER) (test code = 16.7 seconds 11.9-14.2 H 759) INR (BEAKER) (test code = 370) 1.4 <=5.9 PARTIAL THROMBOPLASTIN TIME 35.6 seconds 22.5-36.0 (BEAKER) (test code = 760) Effective 10/02/2018: PT Reference Range ChangeNew: 11.9-14.2 Previous: 11.7- 14.7RECOMMENDED COUMADIN/WARFARIN INR THERAPY RANGESSTANDARD DOSE: 2.0-3.0 Includes: PROPHYLAXIS for venous thrombosis, systemic embolization; TREATMENT for venous thrombosis and/or pulmonary embolus.HIGH RISK: Target INR is2.5-3.5 for patients wiht mechanical heart valves.PROTHROMBIN [id number] 01:28:00 Test Item Value Reference Range Interpretation Comments PROTIME (BEAKER) (test code = 16.7 seconds 11.9-14.2 H 759) INR (BEAKER) (test code = 370) 1.4 <=5.9 Effective 10/02/2018: PT Reference Range ChangeNew: 11.9-14.2 Previous: 11.7- 14.7RECOMMENDED COUMADIN/WARFARIN INR THERAPY RANGESSTANDARD DOSE: 2.0-3.0 Includes: PROPHYLAXIS for venous thrombosis, systemic embolization; TREATMENT for venous thrombosis and/or pulmonary embolus.HIGH RISK: Target INR is2.5-3.5 for patients wiht mechanical heart valves.LACTIC ACID, [id number] 01:24:00 Test Item Value Reference Range Interpretation Comments LACTATE BLOOD VENOUS 1.7 mmol/L 0.5-2.2 Specime n slightly (2) (BEAKER) (test hemolyzed code = 2872) RAD, CHEST, 1 VIEW, NON [id number] 01:15:00Reason for exam:->Elevated BNPShould this be performed [...] grossly unremarkable. Signed: Karla Nieveskei Verified Date/Time: 11/26/2018 01:15:17 CBC W/PLT COUNT & AUTO [id number] 01:14:00 Test Item Value Reference Range Interpretation Comments WHITE BLOOD CELL COUNT (BEAKER) 8.3 K/ L 3.5-10.5 (test code = 775) RED BLOOD CELL COUNT (BEAKER) 3.24 M/ L 3.93-5.22 L (test code = 761) HEMOGLOBIN (BEAKER) (test code = 9.8 GM/DL 11.2-15.7 L 410) HEMATOCRIT (BEAKER) (test code = 29.9 % 34.1-44.9 L 411) MEAN CORPUSCULAR VOLUME (BEAKER) 92.3 fL 79.4-94.8 (test code = 753) MEAN CORPUSCULAR HEMOGLOBIN 30.2 pg 25.6-32.2 (BEAKER) (test code = 751) MEAN CORPUSCULAR HEMOGLOBIN CONC 32.8 GM/DL 32.2-35.5 (BEAKER) (test code = 752) RED CELL DISTRIBUTION WIDTH 14.4 % 11.7-14.4 (BEAKER) (test code = 412) PLATELET COUNT (BEAKER) (test 225 K/CU MM 150-450 code = 756) MEAN PLATELET VOLUME (BEAKER) 9.5 fL 9.4-12.3 (test code = 754) NUCLEATED RED BLOOD CELLS 0 /100 WBC 0-0 (BEAKER) (test code = 413) NEUTROPHILS RELATIVE PERCENT 76 % (BEAKER) (test code = 429) LYMPHOCYTES RELATIVE PERCENT 15 % (BEAKER) (test code = 430) MONOCYTES RELATIVE PERCENT 6 % (BEAKER) (test code = 431) EOSINOPHILS RELATIVE PERCENT 0 % (BEAKER) (test code = 432) BASOPHILS RELATIVE PERCENT 1 % (BEAKER) (test code = 437) NEUTROPHILS ABSOLUTE COUNT 6.32 K/ L 1.56-6.13 H (BEAKER) (test code = 670) LYMPHOCYTES ABSOLUTE COUNT 1.28 K/ L 1.18-3.74 (BEAKER) (test code = 414) MONOCYTES ABSOLUTE COUNT (BEAKER) 0.53 K/ L 0.24-0.36 H (test code = 415) EOSINOPHILS ABSOLUTE COUNT 0.02 K/ L 0.04-0.36 L (BEAKER) (test code = 416) BASOPHILS ABSOLUTE COUNT (BEAKER) 0.07 K/ L 0.01-0.08 (test code = 417) IMMATURE GRANULOCYTES-RELATIVE 1 % 0-1 PERCENT (BEAKER) (test code = 1483)
[2021-01-06] MEDS ORDERED: ONDANSETRON 4 MG (ODT) TAB ONE (22:15)
[2021-01-06] MEDS ORDERED: MORPHINE 4 MG/ML SYR ONE (22:15)
--- NOTE | 2021-01-06 23:38 | ER ---
Nurse's Notes [facility] Name: Renetta Dey Age: 70 yrs Sex: Female : 1950 Arrival Date: 01/06/2021 Time: 19:39 Bed DX2 Private MD: Diagnosis: T12 compression fracture;L5 compression fracture Presentation: 01/06 20:05 Chief complaint: Patient states: Back pain x 3 days. Coronavirus screen: Vaccine kg status: Patient reports receiving the 1st dose of the Covid vaccine. Date November 2020 New \NJOYMandi Wolff Client denies travel out of the [place] in the last 14 days. At this time, unable to obtain information related to travel outside the [place] At this time, the client does not indicate any symptoms associated with coronavirus-19. Ebola Screen: Patient negative for fever greater than or equal to 101.5 degrees Fahrenheit, and additional compatible Ebola Virus Disease symptoms Patient denies exposure to infectious person. Patient denies travel to an Ebola-affected area in the 21 days before illness onset. Initial Sepsis Screen: Does the patient meet any 2 criteria? No. Patient's initial sepsis screen is negative. Does the patient have a suspected source of infection? No. Patient's initial sepsis screen is negative. Risk Assessment: Do you want to hurt yourself or someone else? Patient reports no desire to harm self or others. Onset of symptoms was January 04, 2021. 20:05 Method Of Arrival: Wheelchair kg 20:05 Acuity: ELEAZAR 4 kg Triage Assessment: 20:09 General: Appears in no apparent distress. Behavior is calm, cooperative, appropriate kg for age, quiet. Pain: Complains of pain in back Pain currently is 10 out of 10 on a pain scale. at worst was 10 out of 10 on a pain scale. level that patient reports is acceptable is 10 out of 10 on a pain scale. Quality of pain is described as aching, sharp, shooting, stabbing. Musculoskeletal:. Historical: - Allergies: 20:09 KNDA; kg - Home Meds: 20:09 amlodipine 10 mg tab 1 tab once daily [Active]; levothyroxine 25 mcg tab 1 tab once kg daily [Active]; Eliquis 5 mg Oral tab 1 tab 2 times per day [Active]; sotalol 80 mg Oral tab 1 tab 2 times per day [Active]; furosemide 40 mg Oral tab 1 tab once daily [Active]; spironolactone 25 mg Oral tab 1 tab once daily [Active]; gabapentin 600 mg oral tab 1 tab [Active]; Vitamin D3 oral [Active]; Tresiba FlexTouch U-100 100 unit/mL (3 mL) subcutaneous inpn [Active]; L-Methylfolate Ca P-5-P Me-Cbl 3 mg-35 mg-2 mg -90.314 mg Oral cap [Active]; duloxetine 20 mg Oral cpDR 1 cap 2 times per day [Active]; ezetimibe 10 mg oral tab 1 tab once daily [Active]; rosuvastatin 20 mg Oral tab 1 tab once daily [Active]; Fiasp U-100 Insulin 100 unit/mL subcutaneous soln [Active]; melatonin Oral [Active]; - PMHx: 20:09 Back pain; CVA; Diabetes - IDDM; ESRD; Hypertension; kg - PSHx: 20:09 Cholecystectomy; CABG; Phen pop bypass; Cardiac Stents; Peripheral stent; kg - Immunization history:: Adult Immunizations not up to date, Client reports receiving the New \T\ New single-dose vaccine. Date received November 2020. - Social history:: Smoking status: Patient denies any tobacco usage or history of. Patient uses. Screenin:18 Abuse screen: Denies threats or abuse. Denies injuries from another. Nutritional kg screening: No deficits noted. Tuberculosis screening: No symptoms or risk factors identified. Fall Risk None identified. Assessment: 22:00 General: Appears in no apparent distress. uncomfortable, Behavior is calm, cooperative. vg1 Pain: Complains of pain in lumbar area, left low back and right low back Pain currently is 10 out of 10 on a pain scale. Quality of pain is described as aching, pressure, Pain began 2-3 days ago. Neuro: Level of Consciousness is awake, alert, obeys commands, Oriented to person, place, time, situation. Cardiovascular: Patient's skin is warm and dry. Respiratory: Airway is patent Respiratory effort is even, unlabored. GI: No signs and/or symptoms were reported involving the gastrointestinal system. : Denies burning with urination, pain with urination urinary frequency. EENT: No signs and/or symptoms were reported regarding the EENT system. Derm: Skin is intact, is healthy with good turgor. Musculoskeletal: Circulation, motion, and sensation intact. Vital Signs: 20:05 BP 162 / 74; Pulse 105; Resp 20; Temp 97.5; Pulse Ox 96% on R/A; Weight 88.45 kg (R); kg Height 5 ft. 3 in. (160.02 cm) (R); Pain 10/10; 22:01 BP 158 / 79; Pulse 80; Resp 16; Pulse Ox 97% on R/A; vg1 23:36 BP 167 / 68; Pulse 92; Resp 18; Temp 98.1(O); Pulse Ox 93% on R/A; ld1 20:05 Body Mass Index 34.54 (88.45 kg, 160.02 cm) kg ED Course: 19:39 Patient arrived in ED. wm 20:09 Triage completed. kg 20:18 Patient has correct armband on for positive identification. kg 20:18 No provider procedures requiring assistance completed. kg 21:06 Ghulam Holt PA is PHCP. [facility] 21:06 Tremayne Perez MD is Attending Physician. [facility] 21:50 Lula Fang, PERLITA is Primary Nurse. vg1 22:01 Arm band placed on. vg1 22:30 Lumbar Spine (3 Views) XRAY In Process Unspecified. EDMS 23:46 Patient did not have IV access during this emergency room visit. ms4 Administered Medications: 21:57 Drug: Zofran (Ondansetron) 4 mg Route: PO; vg1 21:59 Drug: morphine 4 mg Route: IM; Site: left deltoid; vg1 23:39 Drug: GI Cocktail without - (Maalox Suspension 30 ml, Lidocaine Liquid 2 % 15 ms4 ml) Route: PO; Outcome: 23:38 Discharge ordered by . jmm 23:46 Discharged to home ambulatory. ms4 23:46 Condition: stable 23:46 Discharge instructions given to patient, family, Instructed on discharge instructions, follow up and referral plans. Demonstrated understanding of instructions, follow-up care, medications. 23:47 Patient left the ED. ms4 Signatures: Dispatcher [employer] EDMS Ghulam Holt PA PA jmm Garcia, Victoria, RN RN vg1 Riana Jett RN RN ld1 Mary Lou Porter RN RN kg Makenna García Mikaela, RN RN ms4
--- NOTE | 2021-01-06 23:38 | EDPHYS ---
Physician Documentation [facility] Name: Renetta Dey Age: 70 yrs Sex: Female : 1950 Arrival Date: 01/06/2021 Time: 19:39 Bed DX2 Private MD: ED Physician Tremayne Perez HPI: 01/06 23:25 This 70 yrs old Female presents to ER via Wheelchair with complaints of Back jmm Pain. 23:25 Onset: The symptoms/episode began/occurred acutely, 3 day(s) ago. The pain does not jmm radiate. Associated signs and symptoms: Pertinent negatives: dysuria, fever, headache, hematuria, incontinence, nausea, numbness, tingling, urinary retention, weakness. The problem was sustained during a fall, while walking. Modifying factors: The patient symptoms are alleviated by nothing, the patient symptoms are aggravated by movement. Historical: - Allergies: 20:09 KNDA; kg - Home Meds: 20:09 amlodipine 10 mg tab 1 tab once daily [Active]; levothyroxine 25 mcg tab 1 tab once kg daily [Active]; Eliquis 5 mg Oral tab 1 tab 2 times per day [Active]; sotalol 80 mg Oral tab 1 tab 2 times per day [Active]; furosemide 40 mg Oral tab 1 tab once daily [Active]; spironolactone 25 mg Oral tab 1 tab once daily [Active]; gabapentin 600 mg oral tab 1 tab [Active]; Vitamin D3 oral [Active]; Tresiba FlexTouch U-100 100 unit/mL (3 mL) subcutaneous inpn [Active]; L-Methylfolate Ca P-5-P Me-Cbl 3 mg-35 mg-2 mg -90.314 mg Oral cap [Active]; duloxetine 20 mg Oral cpDR 1 cap 2 times per day [Active]; ezetimibe 10 mg oral tab 1 tab once daily [Active]; rosuvastatin 20 mg Oral tab 1 tab once daily [Active]; Fiasp U-100 Insulin 100 unit/mL subcutaneous soln [Active]; melatonin Oral [Active]; - PMHx: 20:09 Back pain; CVA; Diabetes - IDDM; ESRD; Hypertension; kg - PSHx: 20:09 Cholecystectomy; CABG; Phen pop bypass; Cardiac Stents; Peripheral stent; kg - Immunization history:: Adult Immunizations not up to date, Client reports receiving the New \T\ New single-dose vaccine. Date received November 2020. - Social history:: Smoking status: Patient denies any tobacco usage or history of. Patient uses. ROS: 23:25 Constitutional: Negative for fever, chills, and weight loss, Cardiovascular: Negative jm for chest pain, palpitations, and edema, Respiratory: Negative for shortness of breath, cough, wheezing, and pleuritic chest pain. 23:25 Back: Positive for pain with movement. 23:25 All other systems are negative. Exam: 23:25 Constitutional: This is a well developed, well nourished patient who is awake, alert, jmm and in no acute distress. Head/Face: atraumatic. Eyes: EOMI, no conjunctival erythema appreciated ENT: Moist Mucus Membranes Neck: Trachea midline, Supple Chest/axilla: Normal chest wall appearance and motion. Cardiovascular: Regular rate and rhythm. No edema appreciated Respiratory: Normal respirations, no respiratory distress appreciated Abdomen/GI: Non distended, soft 23:25 Back: midline tenderness noted to the lumbar spine. 23:25 Musculoskeletal/extremity: ROM: intact in all extremities. 23:25 Neuro: Motor: is normal. 23:25 Psych: Behavior/mood is pleasant, cooperative. Vital Signs: 20:05 BP 162 / 74; Pulse 105; Resp 20; Temp 97.5; Pulse Ox 96% on R/A; Weight 88.45 kg (R); kg Height 5 ft. 3 in. (160.02 cm) (R); Pain 10/10; 22:01 BP 158 / 79; Pulse 80; Resp 16; Pulse Ox 97% on R/A; vg1 23:36 BP 167 / 68; Pulse 92; Resp 18; Temp 98.1(O); Pulse Ox 93% on R/A; ld1 20:05 Body Mass Index 34.54 (88.45 kg, 160.02 cm) kg MDM: 21:48 Patient medically screened. [facility] 23:30 Data reviewed: vital signs, nurses notes. Counseling: I had a detailed discussion with el the patient and/or guardian regarding: the historical points, exam findings, and any diagnostic results supporting the discharge/admit diagnosis, radiology results, the need for outpatient follow up, to return to the emergency department if symptoms worsen or persist or if there are any questions or concerns that arise at home. ED course: Suspect cord compression or cauda equina. Patient advised to follow-up PCP and otherwise given strict return precautions. Patient understood and agrees plan of care.. 01/06 21:49 Order name: Lumbar Spine (3 Views) XRAY [facility] Administered Medications: 21:57 Drug: Zofran (Ondansetron) 4 mg Route: PO; vg1 21:59 Drug: morphine 4 mg Route: IM; Site: left deltoid; vg1 23:39 Drug: GI Cocktail without - (Maalox Suspension 30 ml, Lidocaine Liquid 2 % 15 ms4 ml) Route: PO; Disposition: 01/07 01:14 Co-signature as Attending Physician, Tremayne Perez MD. [email or web address] Disposition Summary: 01/06/21 23:38 Discharge Ordered Location: Home [facility] Condition: Stable [facility] Diagnosis - T12 compression fracture [facility] - L5 compression fracture [facility] Followup: [facility] - With: Private Physician - When: 2 - 3 days - Reason: Recheck today's complaints, Continuance of care, Re-evaluation by your physician Discharge Instructions: - Discharge Summary Sheet [facility] - Lumbar Spine Fracture [facility] Forms: - Medication Reconciliation Form [facility] - Thank You Letter [facility] - Antibiotic Education [facility] - Prescription Opioid Use [facility] Prescriptions: - Zanaflex 4 mg Oral Tablet - take 1 tablet by ORAL route every 8 hours As needed; 20 tablet; Refills: 0, [facility] Product Selection Permitted Signatures: Dispatcher [employer] EDMS Tremayne Perez MD MD pkl Ghulam Holt PA PA [facility] Lula Fang RN RN vg1 Mary Lou Porter, RN RN kg Swetha Wilkes, RN RN ms4
[2021-01-06] MEDS ORDERED: LIDOCAINE VISCOUS 2% SOLN 15 ML UDC ONE (23:56)
[2021-01-06] MEDS ORDERED: MAGNES/ALUMIN/SIMET 30ML UCUP ONE (23:56)
[2021-01-07 00:06] VITALS: BP 167/68; TEMP 98.1; O2SAT 93
--- NOTE | 2021-01-07 11:07 | RAD REPORT ---
EXAM DESCRIPTION: Lumbar Spine Radiography COMPARISON: None. CLINICAL HISTORY: Low back pain TECHNIQUE: 3 views of the lumbar spine. FINDINGS: Age-indeterminate T12 compression fracture. 20% height loss. Age-indeterminate L5 compress ion deformity with 10% height loss. Lumbar facet arthropathy is present. Multivessel calcified athero sclerosis. The sacroiliac joints are normal in appearance. The visualized soft tissues are unremarkable. IMPRESSION: Age-indeterminate T12 and L5 compression fractures with mild height loss. Electronically signed by: rAnol Vila MD 01/06/2021 11:16 PM CDT Due to temporary technical issues with the PACS/Fluency reporting system, reports are being signed by the in house radiologist without review as a courtesy to ensure prompt reporting. The interpreting r adiologist is fully responsible for the content of the report.
== END 2021-01-06 23:47 | disposition home or self-care (01) ==
LOC: ER 19:36
DX: S22.089A Unspecified fracture of T11-T12 vertebra, initial encounter for closed fracture (principal); S32.059A Unspecified fracture of fifth lumbar vertebra, initial encounter for closed fracture; W19.XXXA Unspecified fall, initial encounter; Y93.01 Activity, walking, marching and hiking; E11.22 Type 2 diabetes mellitus with diabetic chronic kidney disease; I12.0 Hypertensive chronic kidney disease with stage 5 chronic kidney disease or end stage renal disease; N18.6 End stage renal disease; Z79.4 Long term (current) use of insulin; Z79.01 Long term (current) use of anticoagulants; Z86.73 Personal history of transient ischemic attack (TIA), and cerebral infarction without residual deficits; Z95.1 Presence of aortocoronary bypass graft; Z95.818 Presence of other cardiac implants and grafts
CPT/HCPCS: 72100; 96372; 99283

== ENCOUNTER 2022-04-04 12:35 | Inpatient (IN) | payer OTHER ==
--- NOTE | 2022-04-04 13:35 | RAD REPORT ---
EXAM DESCRIPTION: CT - Ct Stroke Brain Wo Cont - 04/04/2022 1:24 pm CLINICAL HISTORY: concern acute stroke COMPARISON: Ct Stroke Brain Wo Cont dated 01/13/2019 TECHNIQUE: Axial 5 millimeter thick images of the head were obtained without IV contrast. All CT scans are performed using dose optimization technique as appropriate and may include automated exposure control or mA/KV adjustment according to patient size. FINDINGS: No intracranial hemorrhage, mass, or cerebral edema. Ill-defined decreased attenuation is present in the posterolateral left frontal lobe along the superior margin of the sylvian fissure. Dec reased attenuation extends into the anterior margin of the left temporal lobe also near the sylvian f issure. These findings were not present on the 2019 study. These focal left frontal and temporal lobe findings are distinguishable from the patient's underlying cerebral white matter chronic ischemic ch alyssa. Patient has no significant degree of atrophy for age. Ventricles are in proportion No extra-axi al fluid collections. Dense arterial tree calcifications are present. Visualized portions of the mastoid air cells, paranasal sinuses, and orbits are unremarkable. Patient has normal variant hyperostosis frontalis interna. Findings telephoned to Dr. Siddiqui 1:31 p.m. IMPRESSION: No intracranial hemorrhage is present. No focal mass lesion identifiable. Diminished attenuation in the left frontal lobe near the Sylvian fissure and in the anterior margin o f the left temporal lobe. Subacute nonhemorrhagic CVA is the most likely etiology.
--- NOTE | 2022-04-04 13:48 | RAD REPORT ---
EXAM DESCRIPTION: RAD - Pelvis - 04/04/2022 1:19 pm CLINICAL HISTORY: TRAUMA COMPARISON: No comparisons FINDINGS: Mild arthritic changes in both hips. No fracture, dislocation or AVN pattern.
--- NOTE | 2022-04-04 13:48 | RAD REPORT ---
EXAM DESCRIPTION: RAD - Chest Single View - 04/04/2022 1:18 pm CLINICAL HISTORY: strok Chest pain. COMPARISON: Chest Pa And Lat (2 Views) dated 03/22/2019; Chest Pa And Lat (2 Views) dated 03/21/2019 ; Chest Single View dated 01/13/2019; Chest Single View dated 11/25/2018 FINDINGS: Portable technique limits examination quality. Bilateral interstitial prominence is noted which may represent viral infection or mild interstitial p ulmonary edema. The heart is mildly prominent in size. Sternotomy wires present.
[2022-04-04 14:00] LABS: Urine Blood 3+ (Negative); Urine Glucose 2+ (Negative); Urine Protein 3+ (Negative); Urine Specific Gravity 1.025 (1.005-1.030); Urine pH 5.5 (5.0-7.0)
[2022-04-04 14:11] LABS: Specific Gravity > 1.030 (1.005-1.030); Urine Bilirubin NEGATIVE (Negative); Urine Blood 3+ (OVER) (Negative); Urine Clarity Clear (Clear); Urine Color Light-Yellow (Yellow); Urine Glucose 4+ (Over) (Negative); Urine Protein 3+ (Negative); Urine RBC <5 /HPF (None Seen); Urine Urobilinogen Normal (Normal)
[2022-04-04 14:11] LABS: Hematocrit 47.8 % (36.0-45.0); Lymphocytes % 5.2 % (15.3-44.8); MPV 8.4 fL (7.6-11.3); RBC Red Blood Cell Count 5.69 M/uL (3.86-4.86)
[2022-04-04 14:15] LABS: Barbiturates NEGATIVE (NEGATIVE); Benzodiazepines NEGATIVE (NEGATIVE); Cocaine NEGATIVE (NEGATIVE); METHAMPHETAM NEGATIVE (NEGATIVE); Methadone NEGATIVE (NEGATIVE); Opiates NEGATIVE (NEGATIVE); Phencyclidine NEGATIVE (NEGATIVE); THC Cannibis NEGATIVE (NEGATIVE)
[2022-04-04 14:17] LABS: Protime INR 1.29
[2022-04-04 14:42] LABS: ALT/SGPT 46 U/L (12-78); AST/SGOT 95 U/L (15-37); Albumin 3.6 g/dL (3.4-5.0); Alkaline Phosphatase 123 U/L (45-117); BUN Blood Urea Nitrogen 16 mg/dL (7-18); Bicarbonate 23 mmol/L (21-32); Bilirubin Direct 0.2 mg/dL (0-0.2); Bilirubin Total 1.5 mg/dL (0.2-1.0); Glomerular Filtration Rate 64 ml/min (=/>90); Glucose Level 384 mg/dL (74-106); Potassium 3.6 mmol/L (3.5-5.1); Protein, Total 8.1 g/dL (6.4-8.2); Sodium Level 142 mmol/L (136-145)
--- NOTE | 2022-04-04 15:11 | RAD REPORT ---
EXAM DESCRIPTION: CT - Neck Angio - 04/04/2022 2:50 pm CLINICAL HISTORY: Neuro deficit, acute, stroke suspected Headache, drowsiness, CVA symptomology COMPARISON: No comparisons TECHNIQUE: CT angiography of the neck vessels was performed with MIPs. All CT scans are performed using dose optimization technique as appropriate and may include automated exposure control or mA/KV adjustment according to patient size. FINDINGS: A left aortic arch is identified with normal three vessel configuration of the great vesse ls. No significant flow abnormality is seen of the common carotid bilaterally. Moderate soft plaque is present involving proximal left internal carotid artery resulting stenosis es timated at 70% based on NASCET criteria. There is a significant stenosis caused by soft and hard plaq uing right carotid bulb estimated at 90% based on NASCET criteria. Normal flow is seen within both vertebral arteries. IMPRESSION: There is bilateral carotid bulb stenosis present, greater on the right as described timothy hines
--- NOTE | 2022-04-04 15:16 | RAD REPORT ---
EXAM DESCRIPTION: CT - Head angio - 04/04/2022 3:00 pm CLINICAL HISTORY: acute stroke Headache, drowsiness, CVA symptomology. COMPARISON: Ct Stroke Brain Wo Cont dated 04/04/2022; Ct Stroke Brain Wo Cont dated 01/13/2019 TECHNIQUE: CT angiography of the head was performed with MIPs. All CT scans are performed using dose optimization technique as appropriate and may include automated exposure control or mA/KV adjustment according to patient size. FINDINGS: No evidence of aneurysm is detected. No flow-limiting stenosis or vascular malformation id entified. Antegrade flow is seen in the vertebral arteries. The vertebral arteries are codominant. The visualized dural venous sinuses are patent. IMPRESSION: No significant flow abnormality is detected.
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
[2022-04-04] MEDS ORDERED: dilTIAZem HCL 25 MG/5 ML VIAL IV ONE (15:51)
[2022-04-04 15:59] LABS: Arterial Blood Carboxyhemoglob 1.7 % (0-1.5); Blood Gas Oxyhemoglobin 90.4 % (94-97); Blood O2 Saturation 93.1 % (92-98.5)
[2022-04-04] MEDS ORDERED: ONDANSETRON 4 MG/2 ML VIAL IV PRN (17:08)
[2022-04-04] MEDS ORDERED: ACETAMINOPHEN 650MG/RECT SUPP PR PRN (17:08)
[2022-04-04] MEDS ORDERED: LABETALOL 20 MG/4ML SYRINGE IV PRN (17:13)
[2022-04-04] MEDS ORDERED: D50W 25 GM/50 ML SYRINGE IV PRN (17:16)
[2022-04-04] MEDS ORDERED: GLUCAGON 1 MG/VIAL IM PRN (17:16)
--- NOTE | 2022-04-04 17:20 | P.HP ---
Certification for Inpatient Patient admitted to: Inpatient With expected LOS: >2 Midnights Patient will require the following post-hospital care: None Practitioner: I am a practitioner with admitting privileges, knowledge of patient current condition, hospital course, and medical plan of care. Services: Services provided to patient in accordance with Admission requirements found in Title 42 Section 412.3 of the Code of Federal Regulations Patient History Date of Service: 04/04/22 Reason for admission: AMS, CVA History of Present Illness: Patient is a 71-year-old female with a past medical history significant for A. fib, CAD with CABG, hypertension, DM 2, CKD, hypothyroidism, DM2 with neuropathy, HLD, CHF who presents with complaint of altered mental status. Patient currently alert and oriented x0. Patient does not respond to verbal commands. Per family reports patient was found on the floor by her and patient was last seen normal 24 hours before being found on the floor. Patient was noted to be altered and patient has some schmitt on her right upper extremity. Patient currently unable to follow commands. No other signs or symptoms reported. Symptoms are aggravated or relieved by nothing. Patient was brought to the hospital for medical evaluation. Allergies iodine Allergy (Verified 11/25/18 18:16) Hives Home Medications: Amlodipine [Norvasc*] 10 mg PO DAILY 03/21/19 Apixaban [Eliquis] 5 mg PO BID 03/21/19 Duloxetine [Cymbalta *] 20 mg PO BEDTIME 03/21/19 Duloxetine [Cymbalta *] 20 mg PO NOON 03/21/19 Famotidine 20 mg PO PRN PRN 03/21/19 Gabapentin 600 mg PO BEDTIME PRN 03/21/19 Gabapentin 900 mg PO BEDTIME 03/21/19 Gabapentin 900 mg PO NOON 03/21/19 Insulis Lispro MIX 75/25 [Humalog Mix 75/25*] 25 units SQ NOON 03/21/19 Levomefolate Calcium [l-Methylfolate] 15 mg PO BEDTIME 03/21/19 Levomefolate Calcium [l-Methylfolate] 15 mg PO NOON 03/21/19 Levothyroxine Sodium 25 mcg PO [id number] 03/21/19 Melatonin 10 mg PO BEDTIME 03/21/19 Rosuvastatin Calcium 20 mg PO DAILY 6PM 03/21/19 Amlodipine [Norvasc*] 5 mg PO DAILY tab 03/23/19 Apixaban [Eliquis] 5 mg PO BID tablet 03/23/19 Duloxetine [Cymbalta *] 20 mg PO BEDTIME cap 03/23/19 Duloxetine [Cymbalta *] 20 mg PO NOON cap 03/23/19 Furosemide [Lasix 40 MG INJ*] 40 mg IV BIDL vial 03/23/19 Insulin -Regular Human [Novolin -R*] See Protocol SQ ACHS ml 03/23/19 Levomefolate Calcium [l-Methylfolate] 15 mg PO BEDTIME 03/23/19 Levomefolate Calcium [l-Methylfolate] 15 mg PO NOON 03/23/19 Melatonin 10 mg PO BEDTIME tablet 03/23/19 Pharmacy Consult 1 ea XX DAILYPRN PRN each 03/23/19 Rosuvastatin [Crestor*] 20 mg PO DAILY 6PM tab 03/23/19 Sotalol HCl [Betapace*] 80 mg PO BID 6AM 6PM #60 tab 03/23/19 - Past Medical/Surgical History Diabetic: Yes -: Diabetes -: Hypertension -: Atrial fibrillation -: CAD with CABG -: CHF -: Kidney failure -: triple bypass 2002 -: carotid artery sx 2002 -: GB surgery 2002 -: Fempop sx 2006 - Family History Father -: Heart disease, Stroke - Social History Smoking Status: Current every day smoker Smoking therapy provided: No (Patient confused.) Patient receptive to therapy: No (Patient confused.) Alcohol use: No CD- Drugs: No Caffeine use: Yes Place of Residence: Home Review of Systems is unable to be obtained (Patient confused and unable to follow commands.) Physical Examination - Physical Exam General: Confused, Delirious, Unresponsive (Unresponsive to verbal commands.) HEENT: Atraumatic, PERRLA, Mucous membr. moist/pink, EOMI, Sclerae nonicteric Neck: Supple, 2+ carotid pulse no bruit, No LAD, Without JVD or thyroid abnormality Respiratory: Clear to auscultation bilaterally, Diminished Cardiovascular: No edema, Normal S1 S2 Capillary refill: <2 Seconds Gastrointestinal: Normal bowel sounds, Non-distended, No tenderness Musculoskeletal: No clubbing, No swelling, No contractures, No tenderness Integumentary: No rashes, No breakdown, No significant lesion Neurological: Normal tone, Normal affect, Abnormal speech (Patient is aphasic) Lymphatics: No axilla or inguinal lymphadenopathy - Studies Laboratory Data (last 24 hrs) 04/04/22 14:02: PT 14.2 H, INR 1.29, APTT 27.3 04/04/22 14:02: WBC 19.10 H, Hgb 15.2 H, Hct 47.8 H, Plt Count 224 04/04/22 14:02: Sodium 142, Potassium 3.6, BUN 16, Creatinine 0.96, Glucose 384 H, Total Bilirubin 1.5 H, AST 95 H, ALT 46, Alkaline Phosphatase 123 H Assessment and Plan - Plan --CVA. Noted on CT scan. Patient has a history of CVA and has been on Eliquis for A. fib. Neurologist consulted. MRI brain ordered for further assessment. Speech therapy and physical therapy consulted. Echocardiogram pending to rule out any cardiac involvement. Continue aspirin, Eliquis and statin when appropriate. --Acute encephalopathy. Likely secondary to CVA. Neurologist on board. Continue supportive care. -- DM 2 with neuropathy. BS monitoring with sliding scale insulin. Continue gabapentin for her neuropathy. --History of CAD with CABG\CVA. Continue aspirin, Eliquis and statin when appropriate. --Hypothyroidism. Continue Synthroid when appropriate. --Hypertension. We will allow for permissive hypertension. Labetalol as needed for SBP greater than 200 mmHg. --Acute on chronic diastolic CHF exacerbation. Daily weight and strict I/O. Continue diuresis with Lasix. -- Nicotine dependence. Patient placed on nicotine patch. Patient will be counseled on tobacco cessation when appropriate. -- Hyperlipidemia. Continue statin when appropriate. -- Atrial fibrillation. Continue Eliquis when appropriate. --Sepsis POA. Blood cultures pending. Continue antibiotics. --Elevated troponin. We will trend serial troponins. Telemetry to monitor for any significant arrhythmia. Cardiology consulted. Will await further recommendations. -- DVT prophylaxis with heparin subQ. Discharge Plan: Home Plan to discharge in: Greater than 2 days - Advance Directives Does patient have a Living Will: Yes Does patient have a Durable POA for Healthcare: Yes - Code Status/Comfort Care Code Status Assessed: Yes Physician Review: Patient Assessed, Agree with Above Assessment and Plan Critical Care: No
[2022-04-04] MEDS ORDERED: DEXTROSE 10%-WATER 125 ML IV PRN (17:23)
[2022-04-04] MEDS ORDERED: NICOTINE 21 MG/PAT TD ONE (17:55)
[2022-04-04 19:22] LABS: Magnesium 2.3 mg/dL (1.8-2.4); Phosphorus 3.1 mg/dL (2.5-4.9); Thyroid Stimulating Hormone 0.626 uIU/mL (0.360-3.740)
[2022-04-04] MEDS: HEPARIN 5000 UNIT/ML 1 ML VIAL SQ SCH (22:11)
[2022-04-04] MEDS: INSULIN -REGULAR HUMAN 50 UNIT/0.5 ML ML SQ SCH (22:11)
[2022-04-05] MEDS: INSULIN -REGULAR HUMAN 50 UNIT/0.5 ML ML SQ SCH ×6 (00:58→20:23)
[2022-04-05] MEDS: PIPER TAZO 3.375 GM in NA CHLORIDE 0.9% 100 ML IV SCH ×3 (00:58→16:13)
[2022-04-05 02:13] LABS: Absolute Lymphocytes (CBC) 1.3 K/uL (0.7-4.9); Hematocrit 45.7 % (36.0-45.0); Lymphocytes % 6.6 % (15.3-44.8); MCV 84.1 fL (80-100); MPV 8.6 fL (7.6-11.3); RBC Red Blood Cell Count 5.43 M/uL (3.86-4.86)
[2022-04-05 02:25] LABS: Potassium 3.5 mmol/L (3.5-5.1)
[2022-04-05] MEDS ORDERED: KCL 20 MEQ/100 mL IVPB 20 MEQ/100 ML BAG IV SCH (05:00)
[2022-04-05] MEDS: NICOTINE 21 MG/PAT TD SCH (07:31)
[2022-04-05] MEDS: HEPARIN 5000 UNIT/ML 1 ML VIAL SQ SCH ×2 (07:32→20:23)
[2022-04-05] MEDS: FUROSEMIDE 40 MG/4 ML VIAL IV SCH ×2 (07:32→16:13)
[2022-04-05] MEDS ORDERED: AMIODARONE HCL 150 MG in D5W 100 ML IV STA (07:49)
[2022-04-05] MEDS ORDERED: AMIODARONE HCL 900 MG in Dextrose 5%-Water 482 ML IV SCH ×4 (08:00)
[2022-04-05] MEDS ORDERED: LABETALOL 20 MG/4ML SYRINGE IV PRN (13:56)
[2022-04-05] MEDS: LABETALOL 20 MG/4ML SYRINGE IV PRN ×2 (14:24→20:45)
--- NOTE | 2022-04-05 16:27 | EKG ---
Test Date: 2022-04-04 Test Time: 12:57:34 Sales Review Clerk: MB MEASUREMENT RESULTS: Intervals: Rate: 116 SC: QRSD: 72 QT: 310 QTc: 430 [place]: P: SC: QRS: 83 T: 192 INTERPRETIVE STATEMENTS: Atrial fibrillation with rapid ventricular response with premature ventricular or aberrantly conducted complexes Marked ST abnormality, possible lateral subendocardial injury Abnormal ECG Compared to ECG 03/21/2019 12:01:36 Ventricular premature complex(es) now present ST (T wave) deviation now present Prolonged QT interval no longer present Electronically Signed On 04-05-22 16:23:11 ORAL SURGERY PHYSICIAN by Kalpesh Pierson
--- NOTE | 2022-04-05 21:36 | CON ---
Reason For Consultation: Consultation called because of altered mental status and stroke. History Of Present Illness: Ms. Dey is a 71-year-old, right-handed, patient with atria l fibrillation with a rapid ventricular response, coronary artery disease, status post small vessel c oronary artery bypass grafting, diabetes mellitus, chronic kidney disease, diabetic peripheral neurop athy, congestive heart failure, and hypothyroidism, who was found by family unresponsive and last kno wn well 24 hours previously. The patient could not communicate what was going on. She was reportedl y found to have some schmitt on the right upper extremity and at [facility] her head CT scan i dentified the appearance of subacute nonhemorrhagic strokes in the left frontal lobe near the sylvian fissure in the anterior margin of the left temporal lobe. There was no hemorrhagic finding there. The patient was found to be in atrial fibrillation with a rapid ventricular response. She reportedly was on anticoagulation with Eliquis 5 mg twice daily and could not be a candidate for a TNKs because of that plus she was way out of the window for it in any event. She was treated with amiodarone and beta richard for rate control and her swallow evaluation was positive. She could not maintain an ai rway. She is now admitted to the ICU and is unable to have MRI at this point because of her atrial f ibrillation with a rapid ventricular response, not yet controlled. Past Medical History: As noted above. Past Surgical History: Triple vessel cardiac bypass in 2002, carotid artery endarterectomy on the le ft done in 2002, cholecystectomy in 2002, femoral-popliteal bypass surgery in 2006. Allergies: IODINE. Medications At Home: Amlodipine 10 mg daily, Eliquis 5 mg twice daily, Cymbalta 20 mg twice daily, P epcid 20 mg daily, gabapentin 900 mg twice daily, lispro insulin 75/25 units at noon, l-methylfolate 15 mg at bedtime and at noon, Synthroid 25 mcg daily, melatonin 10 mg at bedtime, rosuvastatin 20 mg daily, amlodipine as noted, sotalol 80 mg twice daily. Family History: Positive for heart disease and stroke in father. Social History: Patient reportedly smokes on a daily basis. No alcohol use. No IV drug use. Manjeet skinner resides at home. Her daughter, sister at bedside. Review of Systems: Not possible. Patient is not responding with verbal communication to verbal stimulation. She may ar ise around, but not indicating in any purposeful manner. Physical Examination: Vital Signs: Blood pressure 193/84, down to 138/91; pulse ranged from 118 to 130, temperature 98.4, oxygen saturation 96%. Weight 210 pounds, height 5 feet 5 inches, BMI 35. General: Ms. Dey is in ICU. She has oxygen by nasal cannula. She is not intubated. Breathing on her own. As noted, she has irregularly irregular heart rate with elevated blood pressures in the 190 systolic. She is atraumatic in terms of her head. She does have some bandages on the right arm, which is much less mobile than the left arm and her right leg is also less mobile than the left. Sh howard did not follow any commands to move the left or right, but spontaneously moves the left side and at tempted to turn with slight bending of the right knee. Chest: Clear. Heart: Irregularly irregular. Abdomen: Soft. Neuro: Mild edema surrounding the right lower extremity, trace on the left. Unable to assess fully coordination exam, sensory exam, and gait and as well as full strength exam, but the right arm appear s again to be somewhere at least 3/5. She did flex it towards the face, but the hand is kind of held flexed and she did not extend the hand. Right leg is at least 3/5. The left side, unable to fully assess strength, at least 4/5. Laboratory Studies: Complete blood count with differential shows elevated white blood cell count of 19.2 with 86% neutrophils, hemoglobin 14.6, platelets 217. INR 1.29. Arterial blood gases today anshul w pH of 7.46, pCO2 was 29.9, pO2 low at 70.2. Her sodium 146, potassium 3.5, chloride 115, carbon di oxide 23, BUN 18, creatinine 0.99, and glucose ranged from 304 to 388. Troponin elevated to 379.9. Total bilirubin elevated to 1.5, direct normal at 0.2, AST elevated at 95, alkaline phosphatase eleva brittaney to 153, ALT normal at 46. Ammonia was less than 15. Calcium 9.8. Her lactic acid elevated at 2 .2. Urine drug screen is negative. COVID testing is negative. Her electrocardiogram shows atrial f ibrillation with rapid ventricular response and premature ventricular or aberrant conduction complexe s. Furthermore, there is a marked ST abnormality, possible lateral and subendocardial injury and not ed she is followed by Cardiology. Assessment: Ms. Dey is a 71-year-old patient with likely cardioembolic strokes effecting the lef t frontal and temporal regions, which is producing a significant expressive and likely receptive apha dawit causing global aphasia. She does have right-sided weakness noted, upper more than lower extremit ies and unable to assess her sensory coordination examination. She does appear to have myocardial in farction and also chest x-ray identifies bilateral interstitial prominence, likely representing viral infection or mild interstitial pulmonary edema. Heart was mildly prominent in size. Furthermore, C T angiogram of her head showed no evidence of aneurysm or flow stenosis in the cerebral vasculature. However, CT angiogram of her neck, identified around 90% plaque in the right carotid bulb and 70% pl aque in the left side where she already had left carotid endarterectomy. Plan: Continue aggressive management of atrial fibrillation with rapid response. Continue with high dose heparin for stroke risk medication. Also, she potentially has systemic infection as noted by l actic acid elevation surrounded by white blood cell count elevation and she is on intravenous antibio tics, piperacillin/tazobactam 3.375 mg every 8 hours and should continue. She has uncontrolled blood pressures and she has atrial fibrillation with rapid ventricular response. Those may be addressed w ith adjusting calcium channel richard and beta richard as directed by Cardiology. When she is more s table, a brain MRI would be helpful to assess the full extent of her likely ischemic strokes reducing the global aphasia with right-sided weakness. Note, she should continue anticoagulation as well. O nce she is able to swallow. At this point, should she fail the swallow evaluation by Speech Patholog y, an NG tube may be required and longer- term PEG tube placement may be required depending on her recovery rate. This was discussed with the patient's family at the bedside. NATHEN/LADONNA Voice ID: [id number] Report ID: [id number]
[2022-04-06] MEDS: PIPER TAZO 3.375 GM in NA CHLORIDE 0.9% 100 ML IV SCH ×3 (01:10→16:23)
[2022-04-06] MEDS: INSULIN -REGULAR HUMAN 50 UNIT/0.5 ML ML SQ SCH ×6 (01:27→21:42)
--- NOTE | 2022-04-06 06:47 | ECHO ---
HEIGHT: 5 ft 5 in WEIGHT: 210 lb 5 oz DATE OF STUDY: 04/05/[address]: Celi Slade 2-DIMENSIONAL: YES M.MODE: YES DOPPLER: YES COLOR FLOW: YES TDS: YES PORTABLE: YES DEFINITY: BUBBLE STUDY: DIAGNOSIS: CEREBRAL VASCULAR ACCIDENT CARDIAC HISTORY: CATHERIZATION: SURGERY: PROSTHETIC VALVE: PACEMAKER: MEASUREMENTS (cm) DIASTOLIC (NORMALS) SYSTOLIC (NORMALS) IVSd 0.9 (0.6-1.2) LA Diam 4.0 (1.9-4.0) LVEF 68% LVIDd 3.4 (3.5-5.7) LVIDs 2.1 (2.0-3.5) %FS 37% LVPWd 1.1 (0.6-1.2) Ao Diam 2.7 (2.0-3.7) 2 DIMENSIONAL ASSESSMENT: RIGHT ATRIUM: NORMAL LEFT ATRIUM: NORMAL RIGHT VENTRICLE: NORMAL LEFT VENTRICLE: NORMAL TRICUSPID VALVE: NORMAL MITRAL VALVE: MITRAL ANNULAR CALCIFICATION PULMONIC VALVE: NORMAL AORTIC VALVE: SCLEROSIS PERICARDIAL EFFUSION: NONE AORTIC ROOT: NORMAL LEFT VENTRICULAR WALL MOTION: NORMAL DOPPLER/COLOR FLOW: MILD TRICUSPID REGURGITATION COMMENTS: 1. MILD TRICUSPID REGURGITATION. 2. MITRAL ANNULAR CALCIFICATION 3. AORTIC SCLEROSIS 4. NORMAL LEFT VENTRICULAR EJECTION FRACTION AND SIZE TECHNOLOGIST: AJIT SAUCEDO
[2022-04-06] MEDS: NICOTINE 21 MG/PAT TD SCH (08:56)
[2022-04-06] MEDS: FUROSEMIDE 40 MG/4 ML VIAL IV SCH (08:56)
[2022-04-06] MEDS: HEPARIN 5000 UNIT/ML 1 ML VIAL SQ SCH ×2 (08:57→21:43)
[2022-04-06] MEDS: AMIODARONE HCL 900 MG in Dextrose 5%-Water 482 ML IV SCH (08:57)
[2022-04-06] MEDS: LABETALOL 20 MG/4ML SYRINGE IV PRN (08:58)
[2022-04-06] MEDS ORDERED: AMLODIPINE 5 MG TAB PO ONE (10:29)
[2022-04-06 11:23] LABS: Absolute Lymphocytes (CBC) 1.1 K/uL (0.7-4.9); Hematocrit 46.7 % (36.0-45.0); Lymphocytes % 5.7 % (15.3-44.8); MCV 84.9 fL (80-100); MPV 8.2 fL (7.6-11.3)
[2022-04-06] MEDS ORDERED: INSULIN 70/30 100 UNITS/ML SQ ONE (12:45)
[2022-04-06 12:49] LABS: Blood Morphology Comment NOT SEEN (NOT SEEN); Platelet Estimate ADEQ; White Blood Cell Scan OK (OK)
[2022-04-06] MEDS ORDERED: NACHLORIDE 0.45% 1,000 ML IV SCH (13:00)
[2022-04-06] MEDS: KCL 20 MEQ/100 mL IVPB 20 MEQ/100 ML BAG IV SCH ×2 (14:40→16:51)
[2022-04-06] MEDS: HYDRALAZINE HCL 20 MG/ML VIAL IV PRN (15:15)
[2022-04-06] MEDS ORDERED: PIPERACIL/TAZO 3.375 GM VIAL IV ONE (16:21)
[2022-04-06] MEDS: FENTANYL CITR 100 MCG/2 ML IV PRN (21:49)
--- NOTE | 2022-04-06 22:49 | P.PN ---
Subjective Date of Service: 04/05/22 Patient still not speaking. MRI has not been done at this time. Waiting to get MRI done today. Review of Systems is unable to be obtained Physical Examination - Vital Signs Temperature: 97.4 F Blood Pressure: 169/123 Pulse: 125 Respirations: 36 Pulse Ox (%): 94 - Physical Exam General: Alert, In no apparent distress, Confused, Other (aphasic; ) Respiratory: Clear to auscultation bilaterally, Normal air movement Cardiovascular: Regular rate/rhythm, Normal S1 S2, No murmurs Gastrointestinal: Normal bowel sounds, Soft and benign, Non-distended, No tenderness Musculoskeletal: No clubbing, No swelling, No tenderness Neurological: Abnormal speech, Abnormal strength, Abnormal cranial nerve function - Studies Medications List Reviewed: Yes Assessment & Plan - Problems (Diagnosis) (1) Acute ischemic left MCA stroke Current Visit: Yes Status: Acute (2) Afib Current Visit: No Status: Chronic Qualifiers: Atrial fibrillation type: paroxysmal Qualified Code(s): I48.0 - Paroxysmal atrial fibrillation (3) CAD (coronary artery disease) Current Visit: No Status: Chronic Qualifiers: Coronary Disease-Associated Artery/Lesion type: [place] artery [place] vs. 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 MRI of the brain 2. Antiplatelet and statin therapy 3. Lipid profile 4. Physical therapy and speech therapy consultation 5. DVT prophylaxis 6. Neurochecks every 4 hours 7. Reassess stroke scale 8. GI and DVT prophylaxis Discharge Plan: [facility] Plan to discharge in: Greater than 2 days - Advance Directives Does patient have a Living Will: No Does patient have a Durable POA for Healthcare: Yes - Code Status/Comfort Care Code Status Assessed: Yes Code Status: Full Code Physician Review: Patient Assessed, Agree with Above Assessment and Plan Critical Care: No Time Spent Managing PTS Care (In Minutes): 45
[2022-04-07] MEDS: PIPER TAZO 3.375 GM in NA CHLORIDE 0.9% 100 ML IV SCH ×3 (01:29→16:12)
[2022-04-07] MEDS: KCL 20 MEQ/100 mL IVPB 20 MEQ/100 ML BAG IV SCH ×2 (01:37→03:18)
[2022-04-07] MEDS: INSULIN -REGULAR HUMAN 50 UNIT/0.5 ML ML SQ SCH ×6 (01:48→21:20)
[2022-04-07] MEDS: FENTANYL CITR 100 MCG/2 ML IV PRN (01:48)
[2022-04-07 06:42] LABS: Absolute Lymphocytes (CBC) 1.3 K/uL (0.7-4.9); Hematocrit 46.3 % (36.0-45.0); Lymphocytes % 6.8 % (15.3-44.8); MCV 86.1 fL (80-100); MPV 8.5 fL (7.6-11.3); RBC Red Blood Cell Count 5.39 M/uL (3.86-4.86)
[2022-04-07 07:56] LABS: ALT/SGPT 58 U/L (12-78); AST/SGOT 55 U/L (15-37); Albumin 2.6 g/dL (3.4-5.0); Alkaline Phosphatase 107 U/L (45-117); BUN Blood Urea Nitrogen 28 mg/dL (7-18); Bicarbonate 27 mmol/L (21-32); Bilirubin Total 1.3 mg/dL (0.2-1.0); Folic Acid, (Folate) > 20.0 ng/mL (3.1-17.5); Glomerular Filtration Rate 55 ml/min (=/>90); Glucose Level 239 mg/dL (74-106); Magnesium 2.2 mg/dL (1.8-2.4); NT PRO-BNP 721 pg/mL (<125); Phosphorus 2.6 mg/dL (2.5-4.9); Potassium 3.8 mmol/L (3.5-5.1); Protein, Total 6.8 g/dL (6.4-8.2); Sodium Level 148 mmol/L (136-145)
--- NOTE | 2022-04-07 08:05 | RAD REPORT ---
EXAM DESCRIPTION: RAD - Chest Single View - 04/07/2022 5:31 am CLINICAL HISTORY: pneumonia COMPARISON: Chest Single View dated 04/04/2022; Chest Pa And Lat (2 Views) dated 03/22/2019; Chest P a And Lat (2 Views) dated 03/21/2019; Chest Single View dated 01/13/2019 FINDINGS: Lines: None. Lungs: No evidence of edema or pneumonia. Improved aeration compared with 04/04/2022. Pleural: No significant pleural effusions or pneumothorax. Cardiac: Cardiomegaly. Sternotomy. Mediastinum: Within normal limits. Bones: No acute fractures. Other: None IMPRESSION: No acute cardiopulmonary disease. Improved aeration compared with 04/04/2022.
--- NOTE | 2022-04-07 08:12 | P.PN ---
Date of Service: 04/06/22 Subjective Patient continues to show some improvement. But she is really not following directions. She will probably end up going to a nursing facility. Review of Systems is unable to be obtained Physical Examination - Vital Signs Reviewed - Physical Exam General: Alert, In no apparent distress, Confused, Other (aphasic; ) Respiratory: Clear to auscultation bilaterally, Normal air movement Cardiovascular: Regular rate/rhythm, Normal S1 S2, No murmurs Gastrointestinal: Normal bowel sounds, Soft and benign, Non-distended, No tenderness Musculoskeletal: No clubbing, No swelling, No tenderness Neurological: Abnormal speech, Abnormal strength, Abnormal cranial nerve function - Studies Medications List Reviewed: Yes Assessment & Plan - Problems (Diagnosis) (1) Acute ischemic left MCA stroke Current Visit: Yes Status: Acute (2) Afib Current Visit: No Status: Chronic Qualifiers: Atrial fibrillation type: paroxysmal Qualified Code(s): I48.0 - Paroxysmal atrial fibrillation (3) CAD (coronary artery disease) Current Visit: No Status: Chronic Qualifiers: Coronary Disease-Associated Artery/Lesion type: [place] artery [place] vs. 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 MRI of the brain still pending 2. Antiplatelet and statin therapy 3. Lipid profile showed mildly elevated statin therapy 4. Physical therapy and speech therapy consultation dated 5. DVT prophylaxis 6. Neurochecks every 4 hours 7. GI and DVT prophylaxis
--- NOTE | 2022-04-07 08:14 | P.PN ---
Date of Service: 04/07/22 Subjective Will probably need to work on transferring to long-term facility. Imaging studies will be repeated today. May downgrade from ICU. Review of Systems is unable to be obtained Physical Examination - Vital Signs Reviewed - Physical Exam General: Alert, In no apparent distress, Confused, Other (aphasic; ) Respiratory: Clear to auscultation bilaterally, Normal air movement Cardiovascular: Regular rate/rhythm, Normal S1 S2, No murmurs Gastrointestinal: Normal bowel sounds, Soft and benign, Non-distended, No tenderness Musculoskeletal: No clubbing, No swelling, No tenderness Neurological: Abnormal speech, Abnormal strength, Abnormal cranial nerve function - Studies Medications List Reviewed: Yes Assessment & Plan - Problems (Diagnosis) (1) Acute ischemic left MCA stroke Current Visit: Yes Status: Acute (2) Afib Current Visit: No Status: Chronic Qualifiers: Atrial fibrillation type: paroxysmal Qualified Code(s): I48.0 - Paroxysmal atrial fibrillation (3) CAD (coronary artery disease) Current Visit: No Status: Chronic Qualifiers: Coronary Disease-Associated Artery/Lesion type: [place] artery [place] vs. transplanted heart: [place] heart Associated angina: without angina Qualified Code(s): I25.10 - Atherosclerotic heart disease of [place] coronary artery without angina pectoris (4) Chronic kidney disease Current Visit: No Status: Chronic Qualifiers: Chronic kidney disease stage: stage 3 (moderate) (5) Diabetes Current Visit: No Status: Chronic Qualifiers: Diabetes mellitus type: type 2 Diabetes mellitus terminal system operator insulin use: with terminal system operator use Diabetes mellitus complication status: without complication Qualified Code(s): E11.9 - Type 2 diabetes mellitus without complications; 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 MRI of the brain still pending 2. Antiplatelet and statin therapy 3. Lipid profile showed mildly elevated statin therapy 4. Physical therapy and speech therapy consultation dated 5. DVT prophylaxis 6. Neurochecks every 4 hours 7. GI and DVT prophylaxis
[2022-04-07] MEDS ORDERED: METOPROLOL TARTRATE 5 MG/5 ML INJ IV STA (08:16)
[2022-04-07] MEDS: AMLODIPINE 10 MG TAB PO SCH ×2 (09:00→20:06)
--- NOTE | 2022-04-07 09:38 | RAD REPORT ---
EXAM DESCRIPTION: MRI - Brain W/Wo Cont - 04/07/2022 9:10 am CLINICAL HISTORY: CVA COMPARISON: Brain W/Wo Cont dated 01/13/2019; MRA Head Wo Cont dated 01/13/2019; Head angio dated 2021; Ct Stroke Brain Wo Cont dated 04/04/2022 TECHNIQUE: Sagittal T1-weighted images were obtained along with PD/heavily T2-weighted and T2-FLAIR images. Axial DWI and ADC mapping sequences were also obtained along with coronal heavily T2-weighted images were obtained. Post contrast enhanced images were obtained. FINDINGS: Left MCA territory T2/FLAIR hyperintense signal involving the basal ganglia, phillips radiat a, and insular region. This is consistent with a mild to moderate sized acute infarct. Remote left te mporal lobe infarct. Mild chronic small vessel ischemic changes. At the infarct, similar low signal i s present on the DWI which could indicate susceptibility from blood products (petechial hemorrhage). No edema or shift of midline structures. No extra-axial fluid collections. Signal voids are seen as a normal finding in the major intracranial vessels. No abnormal enhancement. No mastoid effusion.Paranasal sinuses are clear. IMPRESSION: Mild to moderate sized acute left MCA territory infarct. Some associated petechial hemor rhage is suspected. .
[2022-04-07] MEDS: NICOTINE 21 MG/PAT TD SCH (09:43)
[2022-04-07] MEDS: D5 0.45 NS 1,000 ML IV SCH (09:43)
[2022-04-07] MEDS: HEPARIN 5000 UNIT/ML 1 ML VIAL SQ SCH ×2 (09:49→20:06)
--- NOTE | 2022-04-07 15:44 | RAD REPORT ---
EXAM DESCRIPTION: RAD - Barium Swallow Modified - 04/07/2022 3:37 pm CLINICAL HISTORY: R/O Possible Aspiration COMPARISON: Stone Protocol dated 11/25/2018 TECHNIQUE: The patient was given liquid, semi-solid and solid forms of barium. Lateral view fluorosc opic imaging was performed in conjunction with speech pathology service. FINDINGS: Laryngeal penetration: Cleared with honet inconsistenly Aspiration: No Cough with thin and nectar Pharyngeal residue: Vallecular Premature oral bolus loss, swallow delay. Not attempted dry swallow. Separates pill from puree and s pits out pill. Total fluoroscopy time: 3 minutes and 32 seconds
[2022-04-07] MEDS: METOPROLOL TARTRATE 5 MG/5 ML INJ IV PRN (16:11)
[2022-04-07] MEDS: AMIODARONE HCL 900 MG in Dextrose 5%-Water 482 ML IV SCH (19:35)
[2022-04-07] MEDS: HYDRALAZINE HCL 20 MG/ML VIAL IV PRN (22:07)
[2022-04-08] MEDS: PIPER TAZO 3.375 GM in NA CHLORIDE 0.9% 100 ML IV SCH ×3 (00:11→17:11)
[2022-04-08] MEDS: INSULIN -REGULAR HUMAN 50 UNIT/0.5 ML ML SQ SCH ×6 (01:18→20:09)
[2022-04-08] MEDS: LABETALOL 20 MG/4ML SYRINGE IV PRN (02:16)
[2022-04-08] MEDS: D5 0.45 NS 1,000 ML IV SCH (05:50)
[2022-04-08] MEDS: AMIODARONE HCL 200 MG TAB PO SCH ×2 (05:51→20:07)
[2022-04-08 06:46] LABS: Absolute Lymphocytes (CBC) 1.2 K/uL (0.7-4.9); Hematocrit 42.1 % (36.0-45.0); Lymphocytes % 9.5 % (15.3-44.8); MCV 86.6 fL (80-100); MPV 9.1 fL (7.6-11.3); RBC Red Blood Cell Count 4.86 M/uL (3.86-4.86)
[2022-04-08 07:08] LABS: Albumin 2.3 g/dL (3.4-5.0); Bilirubin Total 1.1 mg/dL (0.2-1.0); Magnesium 2.3 mg/dL (1.8-2.4); Potassium 3.2 mmol/L (3.5-5.1)
[2022-04-08] MEDS: AMLODIPINE 10 MG TAB PO SCH (08:31)
[2022-04-08] MEDS: NICOTINE 21 MG/PAT TD SCH (08:32)
[2022-04-08] MEDS: HEPARIN 5000 UNIT/ML 1 ML VIAL SQ SCH ×2 (09:23→20:07)
--- NOTE | 2022-04-08 18:33 | PN ---
Date of Progress Note: 04/06/2022 Ms. Dey has been followed for multiple problems including dyslipidemia; hypertension; hypothyroid ism; CVA with severe carotid artery stenosis bilaterally; history of CAD, status post CABG; atrial fi brillation, which is new onset; as well as peripheral arterial disease. Today, she is still in atria l fibrillation at a rate of 129, on amiodarone. Blood pressure is 155/97. Her last glucose was 122. She is saturating 94% on room air. Last white count was 19,000. Ms. Dey needs to have her ami odarone increased from 0.5 mg/minute to 1 mg/minute. We may have to consider direct cardioversion if she continues to be in atrial fibrillation. She will eventually need to have a heart catheterizatio n as well as carotid angiography for her carotid stenosis, but I prefer we wait about [address] her stroke. Her other problems seem to be stable. She is on appropriate therapy. We will lisa anjelica to follow her. DAVID/LADONNA Voice ID: [id number] Report ID: [id number]
--- NOTE | 2022-04-08 19:18 | CON ---
Date of Consultation: 04/05/2022 Reason For Consultation: Elevated troponin, elevated BNP, and CVA. History Of Present Illness: Ms. Dey is a 71-year-old who has a complicated history of dyslipidem ia, hypertension, hypothyroidism, CABG, carotid endarterectomy, atrial fibrillation, and peripheral a rterial disease. She came in with a CVA and was found to have elevated troponin and BNP and I was co nsulted. She also has atrial fibrillation with rapid ventricular response. Past Medical History: As stated above. Allergies: IODINE. Review of Systems: Negative. Social History: Negative. Family History: Negative. Medications: Present medications include Lasix, heparin, hydralazine, insulin, and antibiotics. She is supposed to be taking Eliquis and sotalol at home. Physical Examination: Vital Signs: Her atrial fibrillation rate was 129, her blood pressure was 157/67, and respiratory ra te was 32. HEENT: Negative. Neck: Supple with no bruit. Chest: Rales at both bases and expiratory wheezing. Cardiac: Atrial fibrillation. Abdomen: Benign. Extremities: 1+ edema bilaterally. Neurologic: She was nonfocal. Pulses were present distally bilaterally. Skin: Dry and intact. Diagnostic Data: Her glucose was 282. O2 saturation was 92% to 93% on room air. Creatinine is 1.22 . White count was 20,000. Potassium was 3.0. BNP was 721. Her chest x-ray showed mild interstitia l pulmonary edema versus viral infection. Neck CTA showed bilateral carotid bulb stenosis about 70% on the left and 90% on the right. Echocardiogram, which was done before I saw the patient showed nor mal ejection fraction with aortic sclerosis. EKG showed atrial fibrillation with rapid ventricular r esponse. Impression And Plan: 1.Cerebrovascular accident. 2.Elevated troponin. 3.Elevated BNP. 4.Severe carotid artery stenosis bilaterally. 5.Paroxysmal atrial fibrillation. 6.Dyslipidemia. 7.Hypertension. 8.Hypothyroidism. 9.Coronary artery disease, status post coronary artery bypass graft. 10.Peripheral arterial disease. 11.Elevated white count with possible pneumonia. Ms. Dey needs to be started on amiodarone for her atrial fibrillation. She is already on amlodip ine, Lasix, heparin, hydralazine, insulin, labetalol, and metoprolol. She is on antibiotics. We shannon l continue her present regimen. Continue amiodarone. Once she is stabilized, and I think we should wait about 2 to 4 weeks, later we should consider bilateral carotid angiography as well as coronary a rtery investigation with heart catheterization. We will do that as an outpatient after the patient l eaves the hospital. She is allergic to iodine and she would require pretreatment with steroids. Rig ht now, she is a rather complicated case and we will continue to follow her along with Dr. Mosley. DAVID/LADONNA Voice ID: [id number] Report ID: [id number]
--- NOTE | 2022-04-08 19:24 | PN ---
Date of Progress Note: 04/07/2022 Ms. Dey is being followed for acute CVA with severe bilateral carotid artery stenosis, although s he had a carotid endarterectomy in the past. She has elevated troponin, but she has a normal echo wi th a normal ejection fraction. Her BNP is elevated secondary to diastolic congestive heart failure. She has a history of hypertension, dyslipidemia, hypothyroidism, and coronary artery disease status post CABG. We are dealing with her atrial fibrillation. She is still in atrial fibrillation today, but her heart rate is down from 130 to 97. Her blood pressure remains normal. Her O2 saturation is 97% on room air. Her last white count was 13,000. Her present regimen still includes amiodarone and she is on p.o. 400 b.i.d. now. She is still on amlodipine. She is still on Lasix, heparin, hydrala zine, insulin, labetalol, and metoprolol. She is still on antibiotics. I agree with the present reg imen. We will continue to follow her. Again as an outpatient, she will need carotid angiography and a heart catheterization. She will need to be pretreated with steroids before that. I will discuss the case further with Dr. Mosley. DAVID/LADONNA Voice ID: [id number] Report ID: [id number]
[2022-04-09] MEDS: INSULIN -REGULAR HUMAN 50 UNIT/0.5 ML ML SQ SCH ×6 (00:56→21:21)
[2022-04-09] MEDS: D5 0.45 NS 1,000 ML IV SCH (00:57)
[2022-04-09] MEDS ORDERED: PIPERACIL/TAZO 3.375 GM VIAL IV ONE (01:01)
[2022-04-09] MEDS ORDERED: NA CHLORIDE 0.9% 0 ML ONE (01:06)
[2022-04-09] MEDS: PIPER TAZO 3.375 GM in NA CHLORIDE 0.9% 100 ML IV SCH ×3 (01:07→17:58)
[2022-04-09 05:18] LABS: Absolute Lymphocytes (CBC) 1.2 K/uL (0.7-4.9); Hematocrit 37.7 % (36.0-45.0); Lymphocytes % 11.4 % (15.3-44.8); MCV 84.6 fL (80-100); MPV 9.2 fL (7.6-11.3); RBC Red Blood Cell Count 4.45 M/uL (3.86-4.86)
[2022-04-09 05:39] LABS: Albumin 2.1 g/dL (3.4-5.0); Potassium 3.3 mmol/L (3.5-5.1); Protein, Total 5.7 g/dL (6.4-8.2)
[2022-04-09] MEDS ORDERED: POTASSIUM 25 MEQ EFFERV TAB PO ONE (06:00)
[2022-04-09] MEDS: NICOTINE 21 MG/PAT TD SCH (09:03)
[2022-04-09] MEDS: HEPARIN 5000 UNIT/ML 1 ML VIAL SQ SCH ×2 (09:03→19:45)
[2022-04-09] MEDS: AMIODARONE HCL 200 MG TAB PO SCH ×2 (09:03→19:44)
[2022-04-09] MEDS: AMLODIPINE 10 MG TAB PO SCH (09:03)
[2022-04-09] MEDS: METOPROLOL TARTRATE 5 MG/5 ML INJ IV PRN (12:23)
--- NOTE | 2022-04-09 16:49 | P.PN ---
Date of Service: 04/08/22 Subjective Pt making significant improvement. Patient interacting more appropriately. Moving her extremities. Speech is improving Review of Systems is unable to be obtained Physical Examination - Vital Signs Reviewed - Physical Exam General: Alert, In no apparent distress, Aphasic; Respiratory: Clear to auscultation bilaterally, Normal air movement Cardiovascular: Regular rate/rhythm, Normal S1 S2, No murmurs Gastrointestinal: Normal bowel sounds, Soft and benign, Non-distended, No tenderness Musculoskeletal: No clubbing, No swelling, No tenderness Neurological: Abnormal speech, Abnormal strength on right, Abnormal cranial nerve function on right - Studies Medications List Reviewed: Yes Assessment & Plan - Problems (Diagnosis) (1) Acute ischemic left MCA stroke Current Visit: Yes Status: Acute (2) Afib Current Visit: No Status: Chronic Qualifiers: Atrial fibrillation type: paroxysmal Qualified Code(s): I48.0 - Paroxysmal atrial fibrillation (3) CAD (coronary artery disease) Current Visit: No Status: Chronic Qualifiers: Coronary Disease-Associated Artery/Lesion type: [place] artery [place] vs. 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 MRI of the brain with acute CVA 2. Antiplatelet and statin therapy 3. Lipid profile showed elevated LDL 4. Physical therapy and speech therapy consultation appreciated 5. DVT prophylaxis 6. Strict BP and BS control 7. GI and DVT prophylaxis
--- NOTE | 2022-04-09 16:56 | P.PN ---
Date of Service: 04/09/22 Subjective Pt continues to improve; symptoms much better; patient speaking more appropriately Review of Systems is unable to be obtained Physical Examination - Vital Signs Reviewed - Physical Exam General: Alert, In no apparent distress, Aphasic; Respiratory: Clear to auscultation bilaterally Cardiovascular: Regular rate/rhythm, No murmurs Gastrointestinal: Normal bowel sounds, Soft and benign, Non-distended, No tenderness Musculoskeletal: No clubbing, No swelling, No tenderness Neurological: Abnormal speech, Abnormal strength on right, Abnormal cranial nerve function on right Assessment & Plan - Problems (Diagnosis) (1) Acute ischemic left MCA stroke Current Visit: Yes Status: Acute (2) Afib Current Visit: No Status: Chronic Atrial fibrillation type: paroxysmal Qualified Code(s): I48.0 - Paroxysmal atrial fibrillation (3) CAD (coronary artery disease) Current Visit: No Status: Chronic Coronary Disease-Associated Artery/Lesion type: [place] artery [place] vs. 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 MRI of the brain left stroke 2. Antiplatelet and statin therapy 3. Lipid profile showed elevated LDL 4. Physical therapy and speech therapy consultation appreciated 5. DVT prophylaxis 6. Strict BP and BS control 7. GI and DVT prophylaxis
[2022-04-09] MEDS ORDERED: INSULIN GLARGINE 100 UNIT/ML SQ SCH ×2 (17:00)
[2022-04-09] MEDS: D5W 1,000 ML IV SCH ×2 (17:00→19:44)
[2022-04-09] MEDS: METOPROLOL TAR 50 MG TAB PO SCH (17:59)
[2022-04-09] MEDS: INSULIN 70/30 100 UNITS/ML SQ SCH (18:00)
[2022-04-09] MEDS: LOSARTAN POTASSIUM 50 MG TABLET PO SCH (19:44)
[2022-04-10] MEDS: PIPER TAZO 3.375 GM in NA CHLORIDE 0.9% 100 ML IV SCH ×4 (00:23→17:00)
[2022-04-10] MEDS: INSULIN -REGULAR HUMAN 50 UNIT/0.5 ML ML SQ SCH ×6 (00:31→21:00)
[2022-04-10] MEDS: METOPROLOL TAR 50 MG TAB PO SCH ×2 (05:10→18:22)
[2022-04-10 06:43] LABS: Absolute Lymphocytes (CBC) 1.3 K/uL (0.7-4.9); Hematocrit 37.4 % (36.0-45.0); Lymphocytes % 11.1 % (15.3-44.8); MPV 9.3 fL (7.6-11.3)
[2022-04-10 07:11] LABS: Bilirubin Total 0.9 mg/dL (0.2-1.0); Phosphorus 2.8 mg/dL (2.5-4.9); Potassium 3.2 mmol/L (3.5-5.1); Protein, Total 5.8 g/dL (6.4-8.2)
[2022-04-10] MEDS: AMLODIPINE 10 MG TAB PO SCH (08:53)
[2022-04-10] MEDS: LOSARTAN POTASSIUM 50 MG TABLET PO SCH ×2 (08:53→22:20)
[2022-04-10] MEDS: NICOTINE 21 MG/PAT TD SCH (08:53)
[2022-04-10] MEDS: HEPARIN 5000 UNIT/ML 1 ML VIAL SQ SCH ×2 (08:53→22:20)
[2022-04-10] MEDS: AMIODARONE HCL 200 MG TAB PO SCH ×2 (08:53→22:20)
--- NOTE | 2022-04-10 09:49 | RAD REPORT ---
EXAM DESCRIPTION: CT - Head Brain Wo Cont - 04/10/2022 9:28 am CLINICAL HISTORY: CVA; petechial hemorrhage COMPARISON: Head angio dated 04/04/2022; Brain W/Wo Cont dated 04/07/2022 TECHNIQUE: Axial 5 mm thick images of the head were obtained without IV contrast. All CT scans are performed using dose optimization technique as appropriate and may include automated exposure control or mA/KV adjustment according to patient size. FINDINGS: No intracranial hemorrhage has developed. The patient has a moderate-sized subacute infarc tion in the posterior left frontal lobe near the sylvian fissure. Anterior temporal lobe is involved as well. The amount of edema along the posterior aspect of the CVA has increased. No additional site of CVA identified. Patient has little identifiable atrophy. Ventricles are normal. Delete select Mastoid air cells and visualized portions of the paranasal sinuses are clear. No acute bony findings. IMPRESSION: No hemorrhage has developed at the site of infarction. The moderate-sized posterior left frontal and anterior temporal CVA shows overall larger size than th e MRI study. Patient as greater edema but no increase in mass effect. Nonhemorrhagic extension of the CVA is possi ble.
--- NOTE | 2022-04-10 16:08 | P.PN ---
Date of Service: 04/10/22 Subjective Patient has started to participate more. Physical therapy will try to increase patient's activity. May need to arrange for inpatient rehab. Review of Systems is unable to be obtained Physical Examination - Vital Signs Reviewed - Physical Exam General: Alert, In no apparent distress, Aphasic; Respiratory: Clear to auscultation bilaterally Cardiovascular: Regular rate/rhythm, No murmurs Gastrointestinal: Normal bowel sounds, Soft and benign, Non-distended, No tenderness Musculoskeletal: No clubbing, No swelling, No tenderness Neurological: Abnormal speech, Abnormal strength on right, Abnormal cranial nerve function on right Assessment & Plan - Problems (Diagnosis) (1) Acute ischemic left MCA stroke Current Visit: Yes Status: Acute (2) Afib Current Visit: No Status: Chronic Atrial fibrillation type: paroxysmal Qualified Code(s): I48.0 - Paroxysmal atrial fibrillation (3) CAD (coronary artery disease) Current Visit: No Status: Chronic Coronary Disease-Associated Artery/Lesion type: [place] artery [place] vs. transplanted heart: [place] heart Associated angina: without angina Qualified Code(s): I25.10 - Atherosclerotic heart disease of [place] coronary artery without angina pectoris (4) Chronic kidney disease Current Visit: No Status: Chronic Chronic kidney disease stage: stage 3 (moderate) (5) Diabetes Current Visit: No Status: Chronic Diabetes mellitus type: type 2 Diabetes mellitus halfway insulin use: with halfway use Diabetes mellitus complication status: without complication Qualified Code(s): E11.9 - Type 2 diabetes mellitus without complications; Z79.4 - terminal manager (current) use of insulin (6) Hypertension Current Visit: No Status: Chronic Hypertension type: essential hypertension - Plan Continue with plan of care: 1. MRI of the brain left stroke 2. Antiplatelet and statin therapy 3. Lipid profile showed elevated LDL 4. Physical therapy and speech therapy consultation appreciated 5. DVT prophylaxis 6. Strict BP and BS control 7. GI and DVT prophylaxis
--- NOTE | 2022-04-10 17:58 | RAD REPORT ---
EXAM DESCRIPTION: US - UPPER EXTREMITY VENOUS UNILATE - 04/10/2022 5:32 pm CLINICAL HISTORY: left arm swelling. COMPARISON: None. FINDINGS: Partial thrombus left basilic vein. The vein is partially compressible. Thrombus is present within superficial vein left wrist. Left internal jugular vein, left subclavian vein, left axillary vein, left brachial vein, left cephal ic,, left ulnar and left radial veins demonstrate phasic signal. The veins are compressible. Doppler demonstrates good flow. . IMPRESSION: Partial thrombus left basilic vein
[2022-04-10] MEDS: INSULIN 70/30 100 UNITS/ML SQ SCH (18:22)
[2022-04-10] MEDS ORDERED: VANCOMYCIN 1.5 GM in NA CHLORIDE 0.9% 500 ML IVPB SCH (21:00)
--- NOTE | 2022-04-11 00:31 | P.PN ---
Date of Service: 04/11/22 MIKAYLA ANETTE was called overhead, Nurses report that patient after being transferred over to ICU bed and hooked up to monitor he was in V. tach and found to be pulseless. CPR was initiated immediately, upon my arrival rhythm check was performed patient was then SVT with a rate of 200, second cardioversion was [id number] J x 1, patient returned to sinus tachycardia with a rate of 100 with 2+ palpable pulse present. EKG, ABG, CXR, BGL obtained. Discussed case with sister who is aware of his current condition. Patient remains full code. Continue with ICU level care.
[2022-04-11] MEDS: PIPER TAZO 3.375 GM in NA CHLORIDE 0.9% 100 ML IV SCH ×2 (01:00→09:00)
[2022-04-11] MEDS: METOPROLOL TAR 50 MG TAB PO SCH (06:13)
[2022-04-11] MEDS: INSULIN -REGULAR HUMAN 50 UNIT/0.5 ML ML SQ SCH ×4 (07:30→21:00)
[2022-04-11 08:44] LABS: Magnesium 2.2 mg/dL (1.8-2.4); Phosphorus 3.1 mg/dL (2.5-4.9); Potassium 3.6 mmol/L (3.5-5.1)
[2022-04-11] MEDS: AMIODARONE HCL 200 MG TAB PO SCH ×2 (09:00→21:19)
[2022-04-11] MEDS: AMLODIPINE 10 MG TAB PO SCH (09:22)
[2022-04-11] MEDS: NICOTINE 21 MG/PAT TD SCH (09:23)
[2022-04-11] MEDS: LOSARTAN POTASSIUM 50 MG TABLET PO SCH ×2 (09:23→21:19)
[2022-04-11] MEDS: HEPARIN 5000 UNIT/ML 1 ML VIAL SQ SCH (09:23)
[2022-04-11] MEDS ORDERED: VANCOMYCIN 1.5 GM in NA CHLORIDE 0.9% 500 ML IVPB SCH (10:00)
--- NOTE | 2022-04-11 10:25 | P.PN ---
Subjective Date of Service: 04/11/22 Chief Complaint: AMS, CVA No acute events overnight. She appears to have expressive aphasia. She is following commands, but is having difficulty responding to questions. Review of Systems 10-point ROS is otherwise unremarkable Neurological: Weakness, Numbness, Other (aphasia) Physical Examination - Vital Signs Temperature: 96.9 F Blood Pressure: 153/62 Pulse: 59 Respirations: 25 Pulse Ox (%): 100 - Physical Exam General: Alert, In no apparent distress, Oriented x2 (difficult to assess given expressive aphasia) HEENT: Atraumatic, PERRLA, Mucous membr. moist/pink, EOMI, Sclerae nonicteric Neck: JVD not distended Respiratory: Clear to auscultation bilaterally, Normal air movement Cardiovascular: No gallops, No rubs, No murmurs, Edema (LUE), Irregular heart rate/rhythm Gastrointestinal: Normal bowel sounds, Soft and benign, Non-distended, No tenderness, No rebound, No guarding Musculoskeletal: No clubbing Integumentary: No rashes Neurological: Sensation intact, Cranial nerves 3-12 intact, Other (expressive aphasia), Abnormal strength (4/5 RUE, 3/4 RLE, 5/5 LUE/LLE) - Studies Medications List Reviewed: Yes Assessment And Plan - Plan NIH Stroke Scale 1a. Level of consciousness: 0 - Alert; keenly responsive 1b. LOC questions: 2 - aphasic 1c. LOC commands: 0 - Performs both tasks 2. Best Gaze: 0 - Normal 3. Visual: 0 - No visual loss 4. Facial Palsy: 0 - Normal symmetry 5a. Motor left arm: 0 - No drift for 10 seconds 5b. Motor right arm: 1 - Drift, but doesn't hit bed 6a. Motor left le - No drift for 5 seconds 6b. Motor right le - Drift, but doesn't hit bed 7. Limb ataxia: 0 - No ataxia 8. Sensory: 0 - Normal; no sensory loss 9. Best Language: 2 - severe aphasia, fragmentary expression, inference needed 10. Dysarthria: 1 - mild-moderate dysarthria: slurring but can be understood 11. Extinction and Inattention: 0 - No abnormality 12. Distal motor function: 0 - No abnormality Total Score: 7 # Acute Mild-Moderate Left Middle Cerebral Artery Cerebrovascular Accident with associated Petechial Hemorrhage # Acute Toxic Metabolic Encephalopathy secondary to above (resolved) # Bilateral Carotid Artery Stenosis (70 % LICA, 90 % R Carotid Bulb) # Partial Left Basilic Vein Thrombosis - Evaluation thus far: - CT head (04/04) = "No intracranial hemorrhage is present. No focal mass lesion identifiable. Diminished attenuation in the left frontal lobe near the Sylvian fissure and in the anterior margin of the left temporal lobe. Subacute nonhemorrhagic CVA is the most likely etiology." - CT head angiogram (04/04) = "No significant flow abnormality is detected." - CT neck angiogram (04/04) = "There is bilateral carotid bulb stenosis present, greater on the right as described above." - MRI brain (04/07) = "Mild to moderate sized acute left MCA territory infarct. Some associated petechial hemorrhage is suspected." - CT head (04/10) = "No hemorrhage has developed at the site of infarction. The moderate-sized posterior left frontal and anterior temporal CVA shows overall larger size than the MRI study. Patient as greater edema but no increase in mass effect. Nonhemorrhagic extension of the CVA is possible." - Transthoracic echocadiogram = "1. mild tricuspid regurgitation. 2. mitral annular calcification 3. aortic sclerosis 4. normal left ventricular ejection fraction and size." - Management plan: - Consulted Neurology and spoke with Dr. Peres - recommendations appreciated - Recommended starting enoxaparin 1 mg/kg q12hrs - Recommended against aspirin + clopidogrel due to bleeding risk when combined with enoxaparin - q4hr neurochecks - PT/OT evaluation requested - Will likely require SNF placement - Ordered risk profile: - Hgb A1c pending - Lipid panel: TC 182, LDL 86, HDL 44, TG 262 - TSH: 0.626 - Started folic acid + atorvastatin # Suspect Type II Non-ST Segment Elevation Myocardial Infarction ([place]and Ischemia) due to above # Coronary Artery Disease s/p CABG # Chronic Compensated Diastolic Congestive Heart Failure # Hypertension # Dyslipidemia - Evaluation thus far: - EKG: reportedly without STEMI criteria, trend - Serial troponin: 395.0 -> 396.0 -> 379.9 - Transthoracic echocadiogram = "1. mild tricuspid regurgitation. 2. mitral annular calcification 3. aortic sclerosis 4. normal left ventricular ejection fraction and size." - Ordered chest x-ray - Management plan: - Consult Cardiology and spoke with Dr. Pierson - recommendations appreciated - Recommended outpatient carotid angiography and left heart catheterization - Aspirin not started per Neurology recs - Continue home amlodipine, losartan - Started atorvastatin - Resume home sotalol once cleared by Cardiology # Hyperglycemia in Type II Diabetes Mellitus - Ordered Hgb A1c - Continue home insulin regimen - Correction scale insulin # Paroxysmal Atrial Fibrillation with Rapid Ventricular Response (resolved) Remains in atrial fibrillation, but now rate-controlled. Her [id number] = 7 (CHF=1, HTN=1, DM=1, CVA=1, CAD=1, Age 65-74=1, Sex=1), which warrants anticoag ulation. - Continue amiodarone, enoxaparin # Tobacco Use Disorder - Continue nicotine patch # Hypothyroidism - Continue home levothyroxine Toño Willis M.D.
--- NOTE | 2022-04-11 10:56 | RAD REPORT ---
EXAM DESCRIPTION: RAD - Chest Single View - 04/11/2022 10:26 am CLINICAL HISTORY: picc line placement COMPARISON: Chest Single View dated 04/07/2022; Chest Single View dated 04/04/2022; Chest Pa And Lat (2 Views) dated 03/22/2019; Chest Pa And Lat (2 Views) dated 03/21/2019 FINDINGS: Portable chest was obtained following placement of a right upper extremity PICC line. The catheter tip projects over the SVC.
[2022-04-11] MEDS: ENOXAPARIN 100 MG/ML SYR SQ SCH ×2 (12:36→21:19)
[2022-04-11] MEDS: CEFTRIAXONE 1,000 MG in NA CHLORIDE 0.9% 50 ML IVPB SCH (12:36)
[2022-04-11] MEDS: INSULIN 70/30 100 UNITS/ML SQ SCH (17:47)
[2022-04-11] MEDS: ATORVASTATIN 40 MG TAB PO SCH (21:19)
[2022-04-12 05:31] LABS: Absolute Lymphocytes (CBC) 1.4 K/uL (0.7-4.9); Hematocrit 35.4 % (36.0-45.0); Lymphocytes % 17.4 % (15.3-44.8); MCV 84.1 fL (80-100); RBC Red Blood Cell Count 4.21 M/uL (3.86-4.86)
[2022-04-12 05:38] LABS: Potassium 3.8 mmol/L (3.5-5.1)
[2022-04-12] MEDS: LEVOTHYROXINE SOD 0.025 MG TAB PO SCH (06:34)
[2022-04-12] MEDS ORDERED: KCL 20 MEQ/100 mL IVPB 20 MEQ/100 ML BAG IV SCH (07:00)
[2022-04-12] MEDS: INSULIN -REGULAR HUMAN 50 UNIT/0.5 ML ML SQ SCH ×4 (07:30→20:24)
[2022-04-12] MEDS: NICOTINE 21 MG/PAT TD SCH (08:54)
[2022-04-12] MEDS: LOSARTAN POTASSIUM 50 MG TABLET PO SCH ×2 (08:55→20:25)
[2022-04-12] MEDS: ENOXAPARIN 100 MG/ML SYR SQ SCH ×2 (08:55→20:24)
[2022-04-12] MEDS: AMLODIPINE 10 MG TAB PO SCH (08:55)
[2022-04-12] MEDS: CEFTRIAXONE 1,000 MG in NA CHLORIDE 0.9% 50 ML IVPB SCH (08:55)
[2022-04-12] MEDS: FOLIC ACID 1 MG TABLET PO SCH (08:57)
[2022-04-12] MEDS ORDERED: NA CHLORIDE 0.9% 50 ML ONE (08:58)
[2022-04-12] MEDS: AMIODARONE HCL 200 MG TAB PO SCH ×2 (09:00→20:25)
[2022-04-12] MEDS: INSULIN 70/30 100 UNITS/ML SQ SCH (16:20)
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
[2022-04-12] MEDS: ATORVASTATIN 40 MG TAB PO SCH (20:24)
[2022-04-13 05:33] LABS: Absolute Lymphocytes (CBC) 1.2 K/uL (0.7-4.9); Hematocrit 38.3 % (36.0-45.0); Lymphocytes % 15.3 % (15.3-44.8); MCV 84.4 fL (80-100); MPV 9.1 fL (7.6-11.3); RBC Red Blood Cell Count 4.54 M/uL (3.86-4.86)
[2022-04-13 06:11] LABS: Magnesium 2.1 mg/dL (1.8-2.4); Phosphorus 3.4 mg/dL (2.5-4.9); Potassium 3.7 mmol/L (3.5-5.1)
[2022-04-13] MEDS: LEVOTHYROXINE SOD 0.025 MG TAB PO SCH (06:17)
[2022-04-13] MEDS ORDERED: KCL 20 MEQ/100 mL IVPB 20 MEQ/100 ML BAG IV SCH (07:00)
[2022-04-13] MEDS: INSULIN -REGULAR HUMAN 50 UNIT/0.5 ML ML SQ SCH ×4 (07:30→20:57)
[2022-04-13] MEDS: AMIODARONE HCL 200 MG TAB PO SCH ×2 (08:04→20:50)
[2022-04-13] MEDS: ENOXAPARIN 100 MG/ML SYR SQ SCH ×2 (08:04→20:49)
[2022-04-13] MEDS: CEFTRIAXONE 1,000 MG in NA CHLORIDE 0.9% 50 ML IVPB SCH (08:05)
[2022-04-13] MEDS: LOSARTAN POTASSIUM 50 MG TABLET PO SCH ×2 (08:05→20:49)
[2022-04-13] MEDS: AMLODIPINE 10 MG TAB PO SCH (08:05)
[2022-04-13] MEDS: FOLIC ACID 1 MG TABLET PO SCH (08:06)
[2022-04-13] MEDS: NICOTINE 21 MG/PAT TD SCH (08:06)
[2022-04-13] MEDS: INSULIN 70/30 100 UNITS/ML SQ SCH (16:46)
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
[2022-04-13] MEDS: ATORVASTATIN 40 MG TAB PO SCH (20:49)
[2022-04-14 03:07] VITALS: BMI 34.8
[2022-04-14 05:53] LABS: Albumin 2.4 g/dL (3.4-5.0); Bilirubin Total 0.5 mg/dL (0.2-1.0); Magnesium 1.7 mg/dL (1.6-2.4); Phosphorus 3.8 mg/dL (2.5-4.9); Potassium 3.9 mmol/L (3.5-5.1); Protein, Total 6.5 g/dL (6.4-8.2)
[2022-04-14] MEDS: LEVOTHYROXINE SOD 0.025 MG TAB PO SCH (05:57)
[2022-04-14] MEDS: INSULIN -REGULAR HUMAN 50 UNIT/0.5 ML ML SQ SCH ×4 (07:30→21:36)
[2022-04-14] MEDS ORDERED: POTASSIUM 25 MEQ EFFERV TAB PO ONE (09:00)
[2022-04-14] MEDS ORDERED: MAGNESIUM SULFATE 1 gm IVPB 1 GM/100 ML BAG IV ONE (09:00)
[2022-04-14] MEDS: ENOXAPARIN 100 MG/ML SYR SQ SCH ×2 (10:01→21:17)
[2022-04-14] MEDS: FOLIC ACID 1 MG TABLET PO SCH (10:02)
[2022-04-14] MEDS: CEFTRIAXONE 1,000 MG in NA CHLORIDE 0.9% 50 ML IVPB SCH (10:02)
[2022-04-14] MEDS: NICOTINE 21 MG/PAT TD SCH (10:02)
[2022-04-14] MEDS: LOSARTAN POTASSIUM 50 MG TABLET PO SCH ×2 (10:02→21:18)
[2022-04-14] MEDS: AMLODIPINE 10 MG TAB PO SCH (10:03)
[2022-04-14] MEDS: AMIODARONE HCL 200 MG TAB PO SCH ×2 (10:03→21:17)
[2022-04-14] MEDS: INSULIN 70/30 100 UNITS/ML SQ SCH (17:04)
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
[2022-04-14] MEDS: ATORVASTATIN 40 MG TAB PO SCH (21:18)
--- NOTE | 2022-04-14 22:18 | CON ---
Date of Consultation: 04/14/2022 Subjective: Seen at bed side. Does not have any chest pain. Resting. She continues to be in atria l fibrillation. Review of Systems: All systems reviewed were negative except for mentioned above. Physical Examination: Vital Signs: Temperature is 97.8, pulse is 87-107, breathing at 15. Blood pressure is 141/80, satur ating 99%. General: Pleasant elderly female, in no apparent distress. Head and Neck: Pupils are equal, reactive to light. Intact eye movements. No JVD. No cervical lym phadenopathy. Neck is supple. Thyroid is not enlarged. Lungs: Clear to auscultation bilaterally. No rhonchi, rales, or crackles. No accessory muscle use. Heart: Irregularly irregular. No extra sounds. Abdomen: Soft, nontender. Bowel sounds positive. No organomegaly. No masses or hernia. No rigidi ty or rebound. Extremities: No clubbing, cyanosis. Intact pulses. Skin: No rash. Neuro exam: Alert and awake with expressive dysphagia. Lymph nodes: No cervical adenopathy. Investigations: Labs were reviewed. BUN is 8, creatinine 0.68, and hemoglobin is 12.3. Assessment And Recommendation: 1.Acute CVA in the setting of atrial fibrillation. Full anticoagulation is recommended. At this po int, she can be switched from Lovenox to Eliquis if she is able to swallow, to put her on 5 mg twice a day and we will plan in the future for left atrial appendage closure. 2.Elevated troponin is borderline, likely demand. Echocardiogram showed a normal ejection fraction. No wall motion abnormality. She will need a stress test, which can be arranged for her as an outpatient. SR/MODL Voice ID: [id number] Report ID: [id number]
[2022-04-15] MEDS: LEVOTHYROXINE SOD 0.025 MG TAB PO SCH (05:30)
[2022-04-15] MEDS: AMLODIPINE 10 MG TAB PO SCH (08:31)
[2022-04-15] MEDS: NICOTINE 21 MG/PAT TD SCH (08:31)
[2022-04-15] MEDS: FOLIC ACID 1 MG TABLET PO SCH (08:32)
[2022-04-15] MEDS: AMIODARONE HCL 200 MG TAB PO SCH ×2 (08:32→21:50)
[2022-04-15] MEDS: INSULIN -REGULAR HUMAN 50 UNIT/0.5 ML ML SQ SCH ×4 (08:32→21:00)
[2022-04-15] MEDS: LOSARTAN POTASSIUM 50 MG TABLET PO SCH ×2 (08:32→19:53)
[2022-04-15] MEDS: ENOXAPARIN 100 MG/ML SYR SQ SCH ×2 (08:33→19:53)
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
[2022-04-15] MEDS: INSULIN 70/30 100 UNITS/ML SQ SCH (16:51)
[2022-04-15] MEDS: ATORVASTATIN 40 MG TAB PO SCH (19:53)
[2022-04-16] MEDS: LEVOTHYROXINE SOD 0.025 MG TAB PO SCH (05:25)
[2022-04-16] MEDS: INSULIN -REGULAR HUMAN 50 UNIT/0.5 ML ML SQ SCH ×4 (07:30→20:53)
[2022-04-16] MEDS: AMLODIPINE 10 MG TAB PO SCH (08:16)
[2022-04-16] MEDS: LOSARTAN POTASSIUM 50 MG TABLET PO SCH ×2 (08:16→20:52)
[2022-04-16] MEDS: CEFTRIAXONE 1,000 MG in NA CHLORIDE 0.9% 50 ML IVPB SCH (09:19)
[2022-04-16] MEDS: FOLIC ACID 1 MG TABLET PO SCH (09:20)
[2022-04-16] MEDS ORDERED: CEFTRIAXONE 1000 MG/VIAL ONE (09:20)
[2022-04-16] MEDS: NICOTINE 21 MG/PAT TD SCH (09:20)
[2022-04-16] MEDS: ENOXAPARIN 100 MG/ML SYR SQ SCH ×2 (09:20→20:53)
[2022-04-16] MEDS: AMIODARONE HCL 200 MG TAB PO SCH ×2 (09:21→20:52)
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
[2022-04-16] MEDS: INSULIN 70/30 100 UNITS/ML SQ SCH (16:45)
[2022-04-16] MEDS: ATORVASTATIN 40 MG TAB PO SCH (20:52)
[2022-04-17] MEDS: LEVOTHYROXINE SOD 0.025 MG TAB PO SCH (06:00)
[2022-04-17] MEDS: INSULIN -REGULAR HUMAN 50 UNIT/0.5 ML ML SQ SCH ×4 (07:30→21:00)
[2022-04-17] MEDS: CEFTRIAXONE 1,000 MG in NA CHLORIDE 0.9% 50 ML IVPB SCH (09:07)
[2022-04-17] MEDS: ENOXAPARIN 100 MG/ML SYR SQ SCH ×2 (09:07→21:03)
[2022-04-17] MEDS: AMLODIPINE 10 MG TAB PO SCH (09:08)
[2022-04-17] MEDS: AMIODARONE HCL 200 MG TAB PO SCH ×2 (09:08→21:03)
[2022-04-17] MEDS: NICOTINE 21 MG/PAT TD SCH (09:08)
[2022-04-17] MEDS: FOLIC ACID 1 MG TABLET PO SCH (09:08)
[2022-04-17] MEDS: LOSARTAN POTASSIUM 50 MG TABLET PO SCH ×2 (09:08→21:03)
[2022-04-17 09:48] VITALS: O2SAT 98
--- NOTE | 2022-04-17 14:01 | P.PN ---
Date of Service: 04/17/22 Subjective Patient is much more awake and alert. Participating with physical therapy and arranging for inpatient rehab. Review of Systems is unable to be obtained Physical Examination - Vital Signs Reviewed - Physical Exam General: Alert, In no apparent distress, Aphasic; Respiratory: Clear to auscultation bilaterally Cardiovascular: Regular rate/rhythm, No murmurs Gastrointestinal: Normal bowel sounds, Soft and benign, Non-distended, No tenderness Musculoskeletal: No clubbing, No swelling, No tenderness Neurological: Abnormal speech, Abnormal strength on right, Abnormal cranial nerve function on right Assessment & Plan - Problems (Diagnosis) (1) Acute ischemic left MCA stroke Current Visit: Yes Status: Acute (2) Afib Current Visit: No Status: Chronic Atrial fibrillation type: paroxysmal Qualified Code(s): I48.0 - Paroxysmal atrial fibrillation (3) CAD (coronary artery disease) Current Visit: No Status: Chronic Coronary Disease-Associated Artery/Lesion type: [place] artery [place] vs. 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 MRI of the brain left stroke 2. Antiplatelet and statin therapy 3. Lipid profile showed elevated LDL 4. Physical therapy and speech therapy consultation appreciated 5. DVT prophylaxis 6. Strict BP and BS control 7. GI and DVT prophylaxis
[2022-04-17] MEDS: INSULIN 70/30 100 UNITS/ML SQ SCH (17:00)
[2022-04-17] MEDS: ATORVASTATIN 40 MG TAB PO SCH (21:03)
[2022-04-18] MEDS: LEVOTHYROXINE SOD 0.025 MG TAB PO SCH (06:00)
[2022-04-18] MEDS: INSULIN -REGULAR HUMAN 50 UNIT/0.5 ML ML SQ SCH ×2 (07:30→12:51)
[2022-04-18] MEDS ORDERED: CEFTRIAXONE 1000 MG/VIAL ONE (08:18)
[2022-04-18] MEDS ORDERED: NA CHLORIDE 0.9% 50 ML ONE (08:21)
[2022-04-18] MEDS: LOSARTAN POTASSIUM 50 MG TABLET PO SCH (10:06)
[2022-04-18] MEDS: CEFTRIAXONE 1,000 MG in NA CHLORIDE 0.9% 50 ML IVPB SCH (10:06)
[2022-04-18] MEDS: AMLODIPINE 10 MG TAB PO SCH (10:06)
[2022-04-18] MEDS: NICOTINE 21 MG/PAT TD SCH (10:07)
[2022-04-18] MEDS: ENOXAPARIN 100 MG/ML SYR SQ SCH (10:07)
[2022-04-18] MEDS: AMIODARONE HCL 200 MG TAB PO SCH (10:07)
[2022-04-18] MEDS: FOLIC ACID 1 MG TABLET PO SCH (10:07)
[2022-04-18 12:12] VITALS: BP 163/81; TEMP 97.6
--- NOTE | 2022-04-18 14:22 | PN ---
Date of Progress Note: 04/11/2022 Ms. Riggs vital signs were stable on that day and she was in atrial fibrillation, rate of 67. He r glucose level was 161. Her O2 saturation was 99% on room air. She has a normal creatinine. She i s presently on amiodarone, amlodipine, Lipitor, Lovenox, insulin, Synthroid, losartan, and antibiotic s. Echocardiogram in 04/04/2022 showed a normal ejection fraction with aortic sclerosis. I think wh en she goes home, she will eventually have to be anticoagulated, for now continue present regimen. W howard will sign off her case. She will see as an outpatient for followup on her carotid stenosis down [facility] [address]. DAVID/LADONNA Voice ID: [id number] Report ID: [id number]
== END 2022-04-18 13:00 | DRG 64 ==
LOC: ER 12:35 → ERHOLD 17:01 → 3RD-ICU 20:15 → 2ND 04-15 18:10
PROVIDERS: ADMIT Hospitalist; ATTEND Hospitalist
PROC: 5A09357 Assistance with Respiratory Ventilation, Less than 24 Consecutive Hours, Continuous Positive Airway Pressure (ICD-10-PCS; 2022-04-04)
PROC: 02HV33Z Insertion of Infusion Device into Superior Vena Cava, Percutaneous Approach (ICD-10-PCS; principal; 2022-04-07)
PROC: B548ZZA Ultrasonography of Superior Vena Cava, Guidance (ICD-10-PCS; 2022-04-07)
DX: I63.412 Cerebral infarction due to embolism of left middle cerebral artery (principal); G93.41 Metabolic encephalopathy; I50.33 Acute on chronic diastolic (congestive) heart failure; J18.9 Pneumonia, unspecified organism; R65.20 Severe sepsis without septic shock; J96.01 Acute respiratory failure with hypoxia; I21.A1 Myocardial infarction type 2; I13.0 Hypertensive heart and chronic kidney disease with heart failure and stage 1 through stage 4 chronic kidney disease, or unspecified chronic kidney disease; I25.810 Atherosclerosis of coronary artery bypass graft(s) without angina pectoris; R47.01 Aphasia; N18.30 Chronic kidney disease, stage 3 unspecified; F17.210 Nicotine dependence, cigarettes, uncomplicated; R29.713 NIHSS score 13; E11.22 Type 2 diabetes mellitus with diabetic chronic kidney disease; Z79.4 Long term (current) use of insulin; E11.40 Type 2 diabetes mellitus with diabetic neuropathy, unspecified; Z99.2 Dependence on renal dialysis; I48.0 Paroxysmal atrial fibrillation; Z79.01 Long term (current) use of anticoagulants; I70.0 Atherosclerosis of aorta; M54.9 Dorsalgia, unspecified; E03.9 Hypothyroidism, unspecified; W19.XXXA Unspecified fall, initial encounter; Z91.81 History of falling; T22.20XA Burn of second degree of shoulder and upper limb, except wrist and hand, unspecified site, initial encounter; I73.9 Peripheral vascular disease, unspecified
CPT/HCPCS: 36415; 36569; 51702; 70450; 70496; 70498; 70553; 71045; 72170; 74230; 80048; 80053; 80061; 80076; 80307; 80320; 80329; 81001; 81003; 81015; 82140; 82607; 82746; 82805; 82947; 83036; 83540; 83605; 83735; 83880; 84100; 84132; 84145; 84439; 84443; 84484; 85025; 85610; 85730; 87040; 92507; 92523; 92526; 92611; 93005; 93306; 93971; 96374; 97110; 97112; 97116; 97161; 97165; 97530; 99285; A9577; J0282; J0360; J1644; J1650; J1815; J1940; J2543; J3010; J3370; J3475; J3480; J7040; J7060; J7799; Q9967; U0003

== ENCOUNTER 2022-05-13 16:10 | Inpatient (IN) | payer OTHER ==
--- OUTSIDE RECORDS SUMMARY | 2022-05-13 16:19 | XMS REPORT | Continuity of Care Document ---
:1950 Author Organization [facility] t Address [address] [place] [address] Dr. Ramsey. [address] [place] [address] Care Team Providers Name Role Phone No MD, Pcp [facility] Primary Care Physician Unavailable Doctor Unassigned, [place] Attending Clinician Unavailable Arthur Killian MD Attending Clinician Izabella Sanchez RN Attending Clinician Unavailable Jorge Gillis Attending Clinician Marybeth Hicks MD Attending Clinician ALESSANDRO GOFF Attending Clinician Unavailable Jorge Gillis Admitting Clinician ALESSANDRO GOFF Admitting Clinician Unavailable Payers Payer Name Policy Type Policy Number Effective Date Expiration Date S ource Problems Condition Condition Condition Status Onset Resolution Last Treating Co mments Source Name Details Category Date Date Treatment Clinician Date E44.0 E44.0 Disease Active 2019- [facility] Moderate Moderate 8-22 ity of protein protein 00:00: [place] calorie calorie 00 Medical malnutriti malnutriti Br anch on on Lower Lower Disease Active 2019-0 [facility] extremity extremity 8-21 ity of weakness weakness 00:00: [place] 00 Medical Branch 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 00 Center Acute Acute Disease Active 2019- [facility] renal [facility] failure failure 00:00: Medical superimpos superimpos 00 Ce nter ed on ed on chronic chronic kidney kidney disease disease Anuria Anuria Disease Active [facility] Acute Acute Disease Active [facility] tubular tubular 11-26 [facility] necrosis necrosis 00:00: Medica l 00 Center Hyperkalem Hyperkalem Disease Active [facility] 11[facility]26 [facility] Medical 00 Center Metabolic Metabolic Disease Active [facility] acidemia acidemia 11-26 [facility] Center Herpes Herpes Disease Active [facility] zoster zoster 11-26 [facility] 00:[facility]: Medical 00 [place] Dyslipidem Dyslipidem Disease Active U nivers ia ia 08-28 ity of 00:00: [place] 00 Medical Branch Essential Essential Disease Active Uni vers hypertensi hypertensi 08-28 it y of on on 00:00: [place] [id number] Medical Branch Type 2 Type 2 Disease Active Univers diabetes diabetes 1-02 ity of mellitus mellitus 00:00: [place] without without 00 Medical complicati complicati Br anch on, with on, with long-term long-term current current use of use of insulin insulin Hyperglyce Hyperglyc Problem Active 2019-01-19 Memoria inna due to emia due 23:16:58 l type 2 to type 2 [place] diabetes diabetes mellitus mellitus (disorder) (disorder) Active Problem 01/19/2019 [facility] Group Hypothyroi Hypothyro Problem Active 2019-01-19 [facility]oria dism idism 23:16:58 l (disorder) (disorder) [place] Active Problem 01/19/2019 Medical Group Peripheral Periphera Problem Active 2019-01-19 [facility] nerve l nerve 23:16:58 l disease disease [place] (disorder) (disorder) Active Problem 01/19/2019 Medical Group ESRD (end ESRD (end Disease Active [facility] stage [facility] renal renal Medical disease) disease) Center Allergies, Adverse Reactions, Alerts This patient has no known allergies or adverse reactions. Social History Social Habit Start Date Stop Date Quantity Comments Source History of tobacco Current smoker Un iversity of use [place] [facility] History SDOH [facility] Alcohol Std Drinks Medica l Center History SDOH [facility] Alcohol Binge Medical [address] History SDOH [facility] Alcohol Comment Medical C enter Social History 2019-01-17 2019-01-[address] [facility] 19:17 19:17:26 Tobacco Comment 2018-12-25 2018-12-25 quit november 2018 Unive rsity of 00:00:00 00:00:00 [facility] Cigarettes smoked 2018-11-29 2018-11-[address] [facility] current (pack per 00:00:00 00:00:00 Medical Center day) - Reported Cigarette 2018-11-29 2018-11-[address] [facility] pack-years 00:00:00 00:00:00 [facility] Tobacco use and 2018-11-29 2018-11-[address] [facility] exposure 00:00:00 00:00:00 [facility] Alcohol intake 2018-11-29 2018-11-[address] [facility] es 00:00:00 00:00:00 non-drinker of Medical Ce nter alcohol (finding) History SDOH 2018-11-29 2018-11-[address] [facility] Alcohol Frequency 00:00:00 00:00:00 [facility] Sex Assigned At [address] 00:00:00 00:00:00 [facility] Smoking Status Start Date Stop Date Source Former smoker 2019-01-20 00:00:00 2019-01-20 00:00:00 [facility] Current some 2016-04-05 00:00:00 [facility] smoker [facility] Medications Ordered Filled Start Stop Current Ordering Indication Dosage Frequency Signature Comments Components Source Medication Medication Date Date Medication? Clinician (SIG) Name Name nebivolol Yes 10 mg = 1 Mem oria 10 MG Oral 9-13 tab, PO, l Tablet 19:22: Daily, # [place] [Bystolic] 00 30 tab, 0 Refill(s) Famotidine Yes 20 mg = 1 Me moria 20 MG Oral 9-13 tab, PO, l Tablet 19:22: PRN, 0 [place] 00 Refill(s) levothyroxi Yes 25 Memori a ne 25 mcg 9-13 microgram l (0.025 mg) 19:22: = 1 tab, Her flyod oral tablet 00 PO, Daily, # 30 tab, 0 Refill(s) Amlodipine Yes 10 mg, PO, M emoria 9-13 Daily, 0 l 19:22: Refill(s) apixaban 5 2018-0 Yes 5 mg, PO, Me moria MG Oral 9-13 Q12H, 0 l Tablet 19:22: Refill(s) Isidro lin [Eliquis] 00 gabapentin 2019-0 Yes 600 mg = 1 M emoria 600 MG Oral 9-13 tab, PO, l Tablet 19:22: Daily, 0 Refill(s) zinc 2019-0 Yes 220 mg = 1 Memoria sulfate 220 9-13 tab, PO, l mg oral 19:22: Daily, # Isidro n tablet 00 100 tab, 0 Refill(s) Nephro-Coleman 2019-0 Yes 1 tab, PO, Memoria 9-13 Daily, 0 l 19:22: Refill(s) rosuvastati Yes 20 mg = 1 M emoria n 20 mg 9-13 tab, PO, l oral tablet 19:22: Bedtime, # Jaiden 00 30 tab, 0 Refill(s) clopidogrel 2018- Yes 75 mg = 1 M emoria 75 MG Oral 9-13 tab, PO, l Tablet 19:22: Daily, # [place] [Plavix] 00 30 tab, 0 Refill(s) Melatonin 0 Yes 10 mg, PO, Me moria 913 Bedtime, 0 l 19:22: Refill(s) nebivolol Yes 10 mg = 1 Mem oria 10 MG Oral 9-13 tab, PO, l Tablet 19:22: Daily, # [place] [Bystolic] 00 30 tab, 0 Refill(s) Famotidine Yes 20 mg = 1 Me moria 20 MG Oral 9-13 tab, PO, l Tablet 19:22: PRN, 0 Refill(s) levothyroxi 0 Yes 25 Memori a ne 25 mcg 9-13 microgram l (0.025 mg) 19:22: = 1 tab, Her floyd oral tablet 00 PO, Daily, # 30 tab, 0 Refill(s) Amlodipine Yes 10 mg, PO, M emoria 9-13 Daily, 0 l 19:22: Refill(s) apixaban 5 2018-0 Yes 5 mg, PO, Me moria MG Oral 9-13 Q12H, 0 l Tablet 19:22: Refill(s) Isidro lin [Eliquis] 00 gabapentin 2019-0 Yes 600 mg = 1 M emoria 600 MG Oral 9-13 tab, PO, l Tablet 19:22: Daily, 0 [place] 00 Refill(s) zinc 2019-0 Yes 220 mg = 1 Memoria sulfate 220 9-13 tab, PO, l mg oral 19:22: Daily, # Isidro n tablet 00 100 tab, 0 Refill(s) Nephro-Coleman 2019-0 Yes 1 tab, PO, Memoria 9-13 Daily, 0 l 19:22: Refill(s) [place] rosuvastati 2019-0 Yes 20 mg = 1 M emoria n 20 mg 9-13 tab, PO, l oral tablet 19:22: Bedtime, # Jaiden 00 30 tab, 0 Refill(s) clopidogrel 2019-0 Yes 75 mg = 1 M emoria 75 MG Oral 9-13 tab, PO, l Tablet 19:22: Daily, # [place] [Plavix] 00 30 tab, 0 Refill(s) Melatonin 2019-0 Yes 10 mg, PO, Me moria 9-13 Bedtime, 0 l 19:22: Refill(s) [place] 00 nebivolol 2019-0 Yes 10 mg = 1 Mem oria 10 MG Oral 9-13 tab, PO, l Tablet 19:22: Daily, Shaan Hwang [Bystolic] 00 30 tab, 0 Refill(s) Famotidine 2019-0 Yes 20 mg = 1 Me moria 20 MG Oral 9-13 tab, PO, l Tablet 19:22: PRN, 0 [place] 00 Refill(s) levothyroxi 2019-0 Yes 25 Memori a ne 25 mcg 9-13 microgram l (0.025 mg) 19:22: = 1 tab, Her floyd oral tablet 00 PO, Daily, # 30 tab, 0 Refill(s) Amlodipine 2019-0 Yes 10 mg, PO, M emoria 9-13 Daily, 0 l 19:22: Refill(s) [place] 00 apixaban 5 2019-0 Yes 5 mg, PO, Me moria MG Oral 9-13 Q12H, 0 l Tablet 19:22: Refill(s) Isidro lin [Eliquis] 00 gabapentin Yes 600 mg = 1 M emoria 600 MG Oral 9-13 tab, PO, l Tablet 19:22: Daily, 0 [place] 00 Refill(s) zinc Yes 220 mg = 1 Memoria sulfate 220 9-13 tab, PO, l mg oral 19:22: Daily, # Isidro n tablet 00 100 tab, 0 Refill(s) Nephro-Coleman Yes 1 tab, PO, Memoria 9-13 Daily, 0 l 19:22: Refill(s) [place] 00 rosuvastati Yes 20 mg = 1 M emoria n 20 mg 9-13 tab, PO, l oral tablet 19:22: Bedtime, # [place] 00 30 tab, 0 Refill(s) clopidogrel Yes 75 mg = 1 M emoria 75 MG Oral 9-13 tab, PO, l Tablet 19:22: Daily, # [place] [Plavix] 00 30 tab, 0 Refill(s) Melatonin Yes 10 mg, PO, Me moria 9- Bedtime, 0 l 19:22: Refill(s) [place] 00 clopidogrel Yes 75mg Take 75 mg Univers (PLAVIX) 75 8-23 by mouth ity of mg tablet 22:51: daily. [place] 29 Medical Branch CARVEDILOL Yes Take by [facility] ers (COREG 8- mouth. ity of ORAL) 22:51: Indication [place] 29 s: Patient Medical is unsure Branch of dosage ROSUVASTATI Yes Take by Uni vers N CALCIUM 8-23 mouth. ity of (CRESTOR 22:51: Indication Aditya as ORAL) 29 s: Medical Patrient Branch is unsure of dosage aspirin 325 Yes 325mg Take 325 U nivers mg tablet 8-23 mg by ity of 22:51: mouth [place] 29 daily. Medical Branch candesartan Yes 1{tbl} Take 1 Un mil[place] -hydrochlor 8-23 tablet by ity of othiazide 22:51: mouth [place] (ATACAND 29 daily. Medical HCT) Branch 16-12.5 mg per tablet zolpidem Yes 5mg Take 5 mg Univ ers (AMBIEN) 5 8-23 by mouth ity o f mg tablet 22:51: at bedtime [place] 29 as needed Medical for Branch Insomnia. rosuvastati Yes 20mg Take 20 mg Univers n 20 mg 8-23 by mouth. ity of tablet 22:51: [place] [address] Medical Branch clopidogrel Yes 75mg Take 75 mg Univers (PLAVIX) 75 8-23 by mouth ity of mg tablet 22:51: daily. [place] [address] Medical Branch CARVEDILOL Yes Take by Univ ers (COREG 8-23 mouth. ity of ORAL) 22:51: Indication [place] 29 s: Patient Medical is unsure Branch of dosage ROSUVASTATI Yes Take by Uni vers N CALCIUM 8-23 mouth. ity of (CRESTOR 22:51: Indication Aditya as ORAL) 29 s: Medical Patrient Branch is unsure of dosage aspirin 325 Yes 325mg Take 325 U nivers mg tablet 8-23 mg by ity of 22:51: mouth [place] 29 daily. Medical Branch candesartan Yes 1{tbl} Take 1 Un [place] -hydrochlor 8-23 tablet by ity of othiazide 22:51: mouth [place] (ATACAND 29 daily. Medical HCT) Branch 16-12.5 mg per tablet zolpidem Yes 5mg Take 5 mg Univ ers (AMBIEN) 5 8-23 by mouth ity o f mg tablet 22:51: at bedtime [place] 29 as needed Medical for Branch Insomnia. rosuvastati Yes 20mg Take 20 mg Univers n 20 mg 8-23 by mouth. ity of tablet 22:51: [place] [address] Medical Branch clopidogrel Yes 75mg Take 75 mg Univers (PLAVIX) 75 8-23 by mouth ity of mg tablet 22:51: daily. [place] [address] Medical Branch CARVEDILOL Yes Take by Univ ers (COREG 8-23 mouth. ity of ORAL) 22:51: Indication [place] 29 s: Patient Medical is unsure Branch of dosage ROSUVASTATI Yes Take by Uni vers N CALCIUM 8-23 mouth. ity of (CRESTOR 22:51: Indication Aditya as ORAL) 29 s: Medical Patrient Branch is unsure of dosage aspirin 325 Yes 325mg Take 325 U nivers mg tablet 8-23 mg by ity of 22:51: mouth [place] 29 daily. Medical Branch candesartan 20190 Yes 1{tbl} Take 1 Un mil[place] -hydrochlor 8-23 tablet by ity of othiazide 22:51: mouth [place] (ATACAND 29 daily. Medical HCT) Branch 16-12.5 mg per tablet zolpidem 20190 Yes 5mg Take 5 mg Univ ers (AMBIEN) 5 8-23 by mouth ity o f mg tablet 22:51: at bedtime [place] 29 as needed Medical for Branch Insomnia. clopidogrel Yes 75mg Take 75 mg Univers (PLAVIX) 75 8-23 by mouth ity of mg tablet 22:51: daily. [place] [facility] Branch CARVEDILOL Yes Take by Univ ers (COREG 8-23 mouth. ity of ORAL) 22:51: Indication [place] 29 s: Patient Medical is unsure Branch of dosage ROSUVASTATI Yes Take by Uni vers N CALCIUM 8-23 mouth. ity of (CRESTOR 22:51: Indication Aditya as ORAL) 29 s: Medical Patrient Branch is unsure of dosage aspirin 325 2018- Yes 325mg Take 325 U nivers mg tablet 8-23 mg by ity of 22:51: mouth [place] 29 daily. Medical Branch candesartan 0 Yes 1{tbl} Take 1 Un mil[place] -hydrochlor 8-23 tablet by ity of othiazide 22:51: mouth [place] (ATACAND 29 daily. Medical HCT) Branch 16-12.5 mg per tablet zolpidem 20190 Yes 5mg Take 5 mg Univ ers (AMBIEN) 5 8-23 by mouth ity o f mg tablet 22:51: at bedtime [place] 29 as needed Medical for Branch Insomnia. rosuvastati 0 Yes 20mg Take 20 mg Univers n 20 mg 8-23 by mouth. ity of tablet 22:51: [place] 29 Medical Branch clopidogrel 0 Yes 75mg Take 75 mg Univers (PLAVIX) 75 8-23 by mouth ity of mg tablet 22:51: daily. [place] 29 Medical Branch CARVEDILOL Yes Take by Univ ers (COREG 8-23 mouth. ity of ORAL) 22:51: Indication [place] 29 s: Patient Medical is unsure Branch of dosage ROSUVASTATI 0 Yes Take by Uni vers N CALCIUM 8-23 mouth. ity of (CRESTOR 22:51: Indication Aditya as ORAL) 29 s: Medical Patrient Branch is unsure of dosage aspirin 325 2019-0 Yes 325mg Take 325 U nivers mg tablet 8-23 mg by ity of 22:51: mouth [place] 29 daily. Medical Branch candesartan Yes 1{tbl} Take 1 Un milton -hydrochlor 8-23 tablet by ity of othiazide 22:51: mouth [place] (ATACAND 29 daily. Medical HCT) Branch 16-12.5 mg per tablet zolpidem 0 Yes 5mg Take 5 mg Univ ers (AMBIEN) 5 8-23 by mouth ity o f mg tablet 22:51: at bedtime [place] 29 as needed Medical for Branch Insomnia. rosuvastati Yes 20mg Take 20 mg Univers n 20 mg 8-23 by mouth. ity of tablet 22:51: [place] [address] Medical Branch clopidogrel Yes 75mg Take 75 mg Univers (PLAVIX) 75 8-23 by mouth ity of mg tablet 22:51: daily. [place] [address] Medical Branch CARVEDILOL Yes Take by Univ ers (COREG 8-23 mouth. ity of ORAL) 22:51: Indication [place] 29 s: Patient Medical is unsure Branch of dosage ROSUVASTATI Yes Take by Uni vers N CALCIUM 8-23 mouth. ity of (CRESTOR 22:51: Indication Aditya as ORAL) 29 s: Medical Patrient Branch is unsure of dosage aspirin 325 Yes 325mg Take 325 U nivers mg tablet 8-23 mg by ity of 22:51: mouth [place] 29 daily. Medical Branch candesartan Yes 1{tbl} Take 1 Un [place] -hydrochlor 8-23 tablet by ity of othiazide 22:51: mouth [place] (ATACAND 29 daily. Medical HCT) Branch 16-12.5 mg per tablet zolpidem 0 Yes 5mg Take 5 mg Univ ers (AMBIEN) 5 8-23 by mouth ity o f mg tablet 22:51: at bedtime [place] 29 as needed Medical for Branch Insomnia. rosuvastati Yes 20mg Take 20 mg Univers n 20 mg 8-23 by mouth. ity of tablet 22:51: [place] [address] Medical Branch clopidogrel Yes 75mg Take 75 mg Univers (PLAVIX) 75 8-23 by mouth ity of mg tablet 22:51: daily. [place] [facility] CARVEDILOL Yes Take by Univ ers (COREG 8-23 mouth. ity of ORAL) 22:51: Indication [place] 29 s: Patient Medical is unsure Branch of dosage ROSUVASTATI Yes Take by Uni vers N CALCIUM 8-23 mouth. ity of (CRESTOR 22:51: Indication Aditya as ORAL) 29 s: Medical Patrient Branch is unsure of dosage aspirin 325 Yes 325mg Take 325 U nivers mg tablet 8-23 mg by ity of 22:51: mouth [place] 29 daily. Medical Branch candesartan Yes 1{tbl} Take 1 Un [place] -hydrochlor 8-23 tablet by ity of othiazide 22:51: mouth [place] (ATACAND 29 daily. Medical HCT) Branch 16-12.5 mg per tablet zolpidem 0 Yes 5mg Take 5 mg Univ ers (AMBIEN) 5 8-23 by mouth ity o f mg tablet 22:51: at bedtime [place] 29 as needed Medical for Branch Insomnia. clopidogrel Yes 75mg Take 75 mg Univers (PLAVIX) 75 8-23 by mouth ity of mg tablet 22:51: daily. [place] [facility] CARVEDILOL Yes Take by Univ ers (COREG 8-23 mouth. ity of ORAL) 22:51: Indication [place] 29 s: Patient Medical is unsure Branch of dosage ROSUVASTATI Yes Take by Uni vers N CALCIUM 8-23 mouth. ity of (CRESTOR 22:51: Indication Aditya as ORAL) 29 s: Medical Patrient Branch is unsure of dosage aspirin 325 Yes 325mg Take 325 U nivers mg tablet 8-23 mg by ity of 22:51: mouth [place] 29 daily. Medical Branch candesartan 0 Yes 1{tbl} Take 1 Un [place] -hydrochlor 8-23 tablet by ity of othiazide 22:51: mouth [place] (ATACAND 29 daily. Medical HCT) Branch 16-12.5 mg per tablet zolpidem 0 Yes 5mg Take 5 mg Univ ers (AMBIEN) 5 8-23 by mouth ity o f mg tablet 22:51: at bedtime [place] 29 as needed Medical for Branch Insomnia. rosuvastati Yes 20mg Take 20 mg Univers n 20 mg 8-23 by mouth. ity of tablet 22:51: [place] [address] Medical Branch clopidogrel Yes 75mg Take 75 mg Univers (PLAVIX) 75 8-23 by mouth ity of mg tablet 22:51: daily. [place] [address] Medical Branch CARVEDILOL Yes Take by Univ ers (COREG 8-23 mouth. ity of ORAL) 22:51: Indication [place] 29 s: Patient Medical is unsure Branch of dosage ROSUVASTATI Yes Take by Uni vers N CALCIUM 8-23 mouth. ity of (CRESTOR 22:51: Indication Aditya as ORAL) 29 s: Medical Patrient Branch is unsure of dosage aspirin 325 Yes 325mg Take 325 U nivers mg tablet 8-23 mg by ity of 22:51: mouth [place] 29 daily. Medical Branch candesartan Yes 1{tbl} Take 1 Un [place] -hydrochlor 8-23 tablet by ity of othiazide 22:51: mouth [place] (ATACAND 29 daily. Medical HCT) Branch 16-12.5 mg per tablet zolpidem Yes 5mg Take 5 mg Univ ers (AMBIEN) 5 8-23 by mouth ity o f mg tablet 22:51: at bedtime [place] 29 as needed Medical for Branch Insomnia. rosuvastati Yes 20mg Take 20 mg Univers n 20 mg 8-23 by mouth. ity of tablet 22:51: [place] [address] Medical Branch clopidogrel Yes 75mg Take 75 mg Univers (PLAVIX) 75 8-23 by mouth ity of mg tablet 22:51: daily. [place] [address] Medical Branch CARVEDILOL Yes Take by Univ ers (COREG 8-23 mouth. ity of ORAL) 22:51: Indication [place] 29 s: Patient Medical is unsure Branch of dosage ROSUVASTATI Yes Take by Uni vers N CALCIUM 8-23 mouth. ity of (CRESTOR 22:51: Indication Aditya as ORAL) 29 s: Medical Patrient Branch is unsure of dosage aspirin 325 Yes 325mg Take 325 U nivers mg tablet 8-23 mg by ity of 22:51: mouth [place] 29 daily. Medical Branch candesartan Yes 1{tbl} Take 1 Un [place] -hydrochlor 8-23 tablet by ity of othiazide 22:51: mouth [place] (ATACAND 29 daily. Medical HCT) Branch 16-12.5 mg per tablet zolpidem Yes 5mg Take 5 mg Univ ers (AMBIEN) 5 8-23 by mouth ity o f mg tablet 22:51: at bedtime [place] 29 as needed Medical for Branch Insomnia. rosuvastati Yes 20mg Take 20 mg Univers n 20 mg 8-23 by mouth. ity of tablet 22:51: [place] [address] Medical Branch clopidogrel Yes 75mg Take 75 mg Univers (PLAVIX) 75 8-23 by mouth ity of mg tablet 22:51: daily. [place] [address] Medical Branch CARVEDILOL Yes Take by Univ ers (COREG 8-23 mouth. ity of ORAL) 22:51: Indication [place] 29 s: Patient Medical is unsure Branch of dosage ROSUVASTATI Yes Take by Uni vers N CALCIUM 8-23 mouth. ity of (CRESTOR 22:51: Indication Aditya as ORAL) 29 s: Medical Patrient Branch is unsure of dosage aspirin 325 Yes 325mg Take 325 U nivers mg tablet 8-23 mg by ity of 22:51: mouth [place] 29 daily. Medical Branch candesartan Yes 1{tbl} Take 1 Un [place] -hydrochlor 8-23 tablet by ity of othiazide 22:51: mouth [place] (ATACAND 29 daily. Medical HCT) Branch 16-12.5 mg per tablet zolpidem Yes 5mg Take 5 mg Univ ers (AMBIEN) 5 8-23 by mouth ity o f mg tablet 22:51: at bedtime [place] 29 as needed Medical for Branch Insomnia. rosuvastati Yes 20mg Take 20 mg Univers n 20 mg 8-23 by mouth. ity of tablet 22:51: [place] [address] Medical Branch clopidogrel Yes 75mg Take 75 mg Univers (PLAVIX) 75 8-23 by mouth ity of mg tablet 22:51: daily. [place] [address] Medical Branch CARVEDILOL 2019-0 Yes Take by Univ ers (COREG 8- mouth. ity of ORAL) 22:51: Indication [place] 29 s: Patient Medical is unsure Branch of dosage ROSUVASTATI 0 Yes Take by Uni vers N CALCIUM - mouth. ity of (CRESTOR 22:51: Indication Aditya as ORAL) 29 s: Medical Patrient Branch is unsure of dosage aspirin 325 2019-0 Yes 325mg Take 325 U nivers mg tablet 8- mg by ity of 22:51: mouth [place] 29 daily. Medical Branch candesartan 2019-0 Yes 1{tbl} Take 1 Un [place] -hydrochlor 8- tablet by ity of othiazide 22:51: mouth [place] (ATACAND 29 daily. Medical HCT) Branch 16-12.5 mg per tablet zolpidem 2019-0 Yes 5mg Take 5 mg Univ ers (AMBIEN) 5 12-27 by mouth ity o f mg tablet 22:51: at bedtime [place] 29 as needed Medical for Branch Insomnia. rosuvastati Yes 20mg Take 20 mg Univers n 20 mg 12-27 by mouth. ity of tablet 22:51: 29 Medical Branch gadoterate 2019 2019- No .2mL/kg 12 mL (0.2 Univers meglumine 12-27 08- mL/kg ?60 ity of (DOTAREM-15 06:15: 06:15 kg), [place] mL) 00 :00 Intravenou Medical injection s, ONCE, 1 Bran ch 12 mL dose, Sun12/27/18 at 0115, Routine docusate 2019-0 Yes 100mg 100 mg, Unive rs (COLACE) 12-26 Oral, ity of capsule 100 14:00: DAILY, [place] mg 00 First dose Medical on [facility] Branch 12/26/18 at 0900, Until Discontinu ed, Routine clopidogrel 2019-0 Yes 75mg 75 mg, Univ ers (PLAVIX) 12-26 Oral, ity of tablet 75 14:00: DAILY, [place] mg 00 First dose Medical on [facility] Branch 12/26/18 at 0900, Until Discontinu ed, Routine aspirin 2019-0 Yes 325mg 325 mg, Univer s tablet 325 12-26 Oral, ity of mg 14:00: DAILY, [place] 00 First dose Medical on [facility] Branch 12/26/18 at 0900, Until Discontinu ed, Routine amLODIPine 2019-0 Yes 10mg 10 mg, Unive rs (NORVASC) 12-26 Oral, ity of tablet 10 14:00: DAILY, [place] mg 00 First dose Medical on [facility] Branch 12/26/18 at 0900, Until Discontinu ed, Routine insulin 2019-0 Yes 7U 7 Units, Univer s aspart 12-26 Subcutaneo ity of RAPID 13:00: us, TID [place] (NOVOLOG 00 MEALS, Medical U-100 First dose Branch INSULIN on [facility] ASPART) 12/26/18 at injection 7 0800, Units Until Discontinu ed, Routine insulin 2019-0 Yes 17U 17 Units, Unive rs glargine 12-26 Subcutaneo ity o f (LANTUS 13:00: us, BID, [place] U-100) 00 First dose Medical injection on [facility] Branch 17 Units 12/26/18 at 0800, Until Discontinu ed, Routine famotidine 2019-0 Yes 20mg 20 mg, Unive rs (PEPCID AC) 12-26 Oral, BID, it y of tablet 20 13:00: First dose [place] mg 00 on [facility] Medical 12/26/18 at Branch 0800, Until Discontinu ed, Routine apixaban 2019-0 Yes 5mg 5 mg, Univers (ELIQUIS) 12-26 Oral, BID, ity of tablet 5 mg 13:00: First dose [place] 00 on [facility] Medical 12/26/18 at Branch 0800, Until Discontinu ed, Routine levothyroxi 2019-0 Yes 25ug 25 mcg, Uni vers ne 12-26 Oral, ity of (SYNTHROID) 11:00: QAM-0600, [place] tablet 25 00 First dose Medi felipe mcg on [facility] Branch 12/26/18 at 0600, Until Discontinu ed, Routine potassium 2019-0 2019- No 40meq 40 mEq, IV Univers acetate 40 12-26 Piggyback, it y of mEq in NaCl 05:30: 06:01 ONCE, 1 [place] 0.9% (NS) 00 :00 dose, [facility] Medic al piggyback 12/26/18 at Bran ch 0030, 250 mL melatonin 2019-0 Yes 6mg 6 mg, Univers (MELATIN) 12-26 Oral, QHS, ity of tablet 6 mg 05:00: First dose [place] 00 on [facility] 12/26/18 at Branch 0000, Until Discontinu ed gabapentin 2019-0 Yes 300mg 300 mg, Uni vers (NEURONTIN) 12-26 Oral, TID, it y of capsule 300 05:00: First dose [place] mg 00 on [facility] 12/26/18 at Branch 0000, Until Discontinu ed, Routine acetaminoph 2019-0 Yes 650mg 650 mg, Un milton en 12-26 Oral, ity of (TYLENOL) 04:50: Q6HPRN, [place] tablet 650 35 Starting Medic al mg [facility] 12/25/18 at 2350, Until Discontinu ed, BRUCE, Pain (scale 4-6) KCL 2018- 2019- No 40meq 40 mEq, Univers (KLOR-CON 12-26 Oral, ity of M20) tablet 04:30: 05:58 ONCE, 1 [place] 40 mEq 00 :00 dose, [facility] 12/25/18 at Branch 2330, Routine NaCl 0.9% 2018-0 Yes 1000mL at 42 Unive rs (NS) IV 8-22 mL/hr, IV ity of infusion 02:00: Infusion, [place] 1,000 mL 00 CONTINUOUS Medic al , Starting Branch [facility] 12/25/18 at 2100, Until Discontinu ed, Routine Sliding 2018-0 Yes Subcutaneo Univ ers Scale 8-22 us, TID ity of Insulin - 02:00: MEALS+HS, Aditya as Aspart 00 First dose Medical (NOVOLOG) + on [facility] 12/25/18 at Testing 2100, Until Discontinu ed, Routine rosuvastati 2019-0 Yes 20mg 20 mg, Univ ers n (CRESTOR) 12-26 Oral, QHS, it y of tablet 20 02:00: First dose [place] mg 00 on [facility] 12/25/18 at Branch 2100, Until Discontinu ed, Routine rosuvastati 2019-0 Yes 20mg Take 20 mg Univers n 20 mg 8-20 by mouth. ity of tablet 19:18: [address] rosuvastati 2019-0 Yes 20mg Take 20 mg Univers n 20 mg 8-20 by mouth. ity of tablet 19:18: [address] rosuvastati 2019-0 Yes 20mg Take 20 mg Univers n 20 mg 8-20 by mouth. ity of tablet 19:18: [place] 32 Medical Branch clopidogrel 0 Yes 75mg Take 75 mg [facility] (PLAVIX) 75 8-20 by mouth ity of mg tablet 19:14: daily. [place] 31 [facility] Branch CARVEDILOL Yes Take by [facility] ers (COREG 8-20 mouth. ity of ORAL) 19:14: Indication [place] 31 s: Patient Medical is unsure Branch of dosage ROSUVASTATI Yes Take by Uni vers N CALCIUM 8-20 mouth. ity of (CRESTOR 19:14: Indication [facility] as ORAL) 31 s: Medical Patrient Branch is unsure of dosage aspirin 325 Yes 325mg Take 325 U nivers mg tablet 8-20 mg by ity of 19:14: mouth [place] 31 daily. Medical Branch candesartan Yes 1{tbl} Take 1 [facility] [place] -hydrochlor 8-20 tablet by ity of othiazide 19:14: mouth [place] (ATACAND 31 daily. Medical HCT) Branch 16-12.5 mg per tablet zolpidem Yes 5mg Take 5 mg [facility] ers (AMBIEN) 5 8-20 by mouth ity o f mg tablet 19:14: at bedtime [place] 31 as needed Medical for Branch Insomnia. clopidogrel Yes 75mg Take 75 mg [facility] (PLAVIX) 75 8-20 by mouth ity of mg tablet 19:14: daily. [place] [id number] Medical Branch CARVEDILOL Yes Take by Univ ers (COREG 8-20 mouth. ity of ORAL) 19:14: Indication [place] 31 s: Patient Medical is unsure Branch of dosage ROSUVASTATI Yes Take by Uni vers N CALCIUM 8-20 mouth. ity of (CRESTOR 19:14: Indication [facility] as ORAL) 31 s: Medical Patrient Branch is unsure of dosage aspirin 325 Yes 325mg Take 325 U nivers mg tablet 8-20 mg by ity of 19:14: mouth [place] 31 daily. Medical Branch candesartan Yes 1{tbl} Take 1 [facility] [place] -hydrochlor 8-20 tablet by ity of othiazide 19:14: mouth [place] (ATACAND 31 daily. Medical HCT) Branch 16-12.5 mg per tablet zolpidem 2019 Yes 5mg Take 5 mg [facility] ers (AMBIEN) 5 8-20 by mouth ity o f mg tablet 19:14: [place]time [place] as needed Medical for Branch Insomnia. clopidogrel Yes 75mg Take 75 mg [facility] (PLAVIX) 75 8-20 by mouth ity of mg tablet 19:14: daily. [place] 31 [facility] Branch CARVEDILOL Yes Take by [facility] ers (COREG 8-20 mouth. ity of ORAL) 19:14: Indication [place] 31 s: Patient Medical is unsure Branch of dosage ROSUVASTATI Yes Take by [facility] vers N CALCIUM 8-20 mouth. ity of (CRESTOR 19:14: Indication [facility] as ORAL) 31 s: Medical Patrient Branch is unsure of dosage aspirin 325 Yes 325mg Take 325 [facility] nivers mg tablet 8-20 mg by ity of 19:14: mouth [place] 31 daily. Medical Branch candesartan Yes 1{tbl} Take 1 [facility] [place] -hydrochlor 8-20 tablet by ity of othiazide 19:14: mouth [place] (ATACAND 31 daily. Medical HCT) Branch 16-12.5 mg per tablet zolpidem Yes 5mg Take 5 mg [facility] ers (AMBIEN) 5 8-20 by mouth ity o f mg tablet 19:14: at [place]time [place] 31 as needed Medical for Branch Insomnia. NEURONTIN Yes [facility] 100 mg 8-12 ity of capsule 00:00: [place] [facility] NEURONTIN Yes [facility] 100 mg 8-12 ity of capsule 00:00: [place] [facility] NEURONTIN 2018-0 Yes [facility] 100 mg 8-12 ity of capsule 00:00: [place] [facility] NEURONTIN 2018-0 Yes [facility] 100 mg 8-12 ity of capsule 00:00: [place] [facility] NEURONTIN 2018-0 Yes [facility] 100 mg 8-12 ity of capsule 00:00: [place] [facility] NEURONTIN 2018-0 Yes [facility] 100 mg 8-12 ity of capsule 00:00: [place] [facility] NEURONTIN 2018-0 Yes [facility] 100 mg 8-12 ity of capsule 00:00: [place] [facility] NEURONTIN 2018-0 Yes [facility] 100 mg 8-12 ity of capsule 00:00: [place] [facility] NEURONTIN 2019-0 Yes [facility] 100 mg 8-12 ity of capsule 00:00: [place] [facility] NEURONTIN 2019-0 Yes [facility] 100 mg 8-12 ity of capsule 00:00: [place] [facility] NEURONTIN 2019-0 Yes [facility] 100 mg 8-12 ity of capsule 00:00: [place] [facility] NEURONTIN 2019-0 Yes [facility] 100 mg 8-12 ity of capsule 00:00: [place] [facility] NEURONTIN 2019-0 Yes [facility] 100 mg 8-12 ity of capsule 00:00: [place] [facility] folic 2019-0 Yes 1{tbl} QD Take [address] [facility] acid-multiv 8-02 tablet by [facility] itamins 00:00: mouth Medical (NEPHRO-VIT 00 daily. Center E) 0.8 mg Tab tablet folic 2018- Yes 1{tbl} QD Take [address] [facility] acid-multiv 8-02 tablet by [facility] itamins 00:00: mouth Medical (NEPHRO-VIT 00 daily. Center E) 0.8 mg Tab tablet folic 2018- Yes 1{tbl} QD Take [address] [facility] acid-multiv 8-02 tablet by [facility] itamins 00:00: mouth Medical (NEPHRO-VIT 00 daily. Center E) 0.8 mg Tab tablet folic 2018-0 Yes 1{tbl} QD Take [address] [facility] acid-multiv 8-02 tablet by [facility] itamins 00:00: mouth Medical (NEPHRO-VIT 00 daily. Center E) 0.8 mg Tab tablet folic 2019-0 Yes 1{tbl} QD Take [address] [facility] acid-multiv 8-02 tablet by [facility] itamins 00:00: mouth Medical (NEPHRO-VIT 00 daily. Center E) 0.8 mg Tab tablet folic 2019- Yes 1{tbl} QD Take [address] [facility] acid-multiv 8-02 tablet by [facility] es itamins 00:00: mouth Medical (NEPHRO-VIT 00 daily. Center E) 0.8 mg Tab tablet amLODIPine 2019- No 10mg Take 10 mg [facility] 10 mg 12-06 by mouth. ity of tablet 00:00: 04:59 [place] 00 :00 Medical Branch levothyroxi 2020- No 25ug Take 25 [facility] ne 25 mcg 8-02 08-02 mcg by ity of tablet 00:00: 04:59 mouth. [place] 00 :00 Medical Branch amLODIPine 2019-0 2020- No 10mg Take 10 mg [facility] 10 mg 12-06 08- by mouth. ity of tablet 00:00: 04:59 [place] 00 :00 Medical Branch levothyroxi 2019-0 2020- No 25ug Take 25 [facility] [place] ne 25 mcg 8 08- mcg by ity of tablet 00:00: 04:59 mouth. [place] 00 :00 Medical Branch amLODIPine 2019-0 2020- No 10mg Take 10 mg [facility] 10 mg 12-06 08- by mouth. ity of tablet 00:00: 04:59 [place] 00 :00 Medical Branch levothyroxi 2019-0 2020- No 25ug Take 25 [facility] [place] ne 25 mcg 12-06- mcg by ity of tablet 00:00: 04:59 mouth. [place] 00 :00 Medical Branch amLODIPine 2019-0 2020- No 10mg Take 10 mg [facility] 10 mg 8 08 by mouth. ity of tablet 00:00: 04:59 [place] 00 :00 Medical Branch levothyroxi 2019-0 2020- No 25ug Take 25 [facility] [place] ne 25 mcg 8 08- mcg by ity of tablet 00:00: 04:59 mouth. [place] 00 :00 Medical Branch amLODIPine 2019-0 2020- No 10mg Take 10 mg [facility] 10 mg 12-06 0802 by mouth. ity of tablet 00:00: 04:59 [place] 00 :00 Medical Branch levothyroxi 2019-0 2020- No 25ug Take 25 [facility] [place] ne 25 mcg 12-06 08- mcg by ity of tablet 00:00: 04:59 mouth. [place] 00 :00 Medical Branch amLODIPine 2019-0 2020- No 10mg Take 10 mg [facility] 10 mg 12-06 08-02 by mouth. ity of tablet 00:00: 04:59 [place] 00 :00 Medical Branch levothyroxi 2019-0 2020- No 25ug Take 25 [facility] [place] ne 25 mcg 8- 08- mcg by ity of tablet 00:00: 04:59 mouth. [place] 00 :00 Medical Branch amLODIPine 2019-0 2020- No 10mg Take 10 mg [facility] 10 mg 12-06 08-02 by mouth. ity of tablet 00:00: 04:59 [place] 00 :00 Medical Branch levothyroxi 2019-0 2020- No 25ug Take 25 [facility] [place] ne 25 mcg 8- 08-02 mcg by ity of tablet 00:00: 04:59 mouth. [place] 00 :00 Medical Branch amLODIPine 2019-0 2020- No 10mg Take 10 mg [facility] 10 mg 8- 08-02 by mouth. ity of tablet 00:00: 04:59 [place] 00 :00 Medical Branch levothyroxi 2019-0 2020- No 25ug Take 25 [facility] [place] ne 25 mcg 8- 08-02 mcg by ity of tablet 00:00: 04:59 mouth. [place] 00 :00 Medical Branch amLODIPine 2019-0 2020- No 10mg Take 10 mg [facility] 10 mg 8- 08-02 by mouth. ity of tablet 00:00: 04:59 [place] 00 :00 Medical Branch levothyroxi 2019-0 2020- No 25ug Take 25 [facility] [place] ne 25 mcg 8- 08- mcg by ity of tablet 00:00: 04:59 mouth. [place] 00 :00 Medical Branch amLODIPine 2019-0 2020- No 10mg Take 10 mg [facility] 10 mg 8- 08-02 by mouth. ity of tablet 00:00: 04:59 [place] 00 :00 Medical Branch levothyroxi 2019-0 2020- No 25ug Take 25 [facility] [place] ne 25 mcg 8- 08- mcg by ity of tablet 00:00: 04:59 mouth. [place] 00 :00 Medical Branch amLODIPine 2019-0 2020- No 10mg Take 10 mg [facility] 10 mg 8 08-02 by mouth. ity of tablet 00:00: 04:59 [place] 00 :00 Medical Branch levothyroxi 2019-0 2020- No 25ug Take 25 [facility] [place] ne 25 mcg 8- 08-02 mcg by ity of tablet 00:00: 04:59 mouth. [place] 00 :00 Medical Branch amLODIPine 2019-0 2020- No 10mg Take 10 mg [facility] 10 mg 8- 08-02 by mouth. ity of tablet 00:00: 04:59 [place] 00 :00 Medical Branch levothyroxi 2019-0 2020- No 25ug Take 25 [facility] [place] ne 25 mcg 8- 08-02 mcg by ity of tablet 00:00: 04:59 mouth. [place] 00 :00 Medical Branch amLODIPine 2019-0 2020- No 10mg Take 10 mg [facility] 10 mg 12-06 by mouth. ity of tablet 00:00: 04:59 [place] 00 :00 Medical Branch levothyroxi 2019- No 25ug Take 25 [facility] [place] ne 25 mcg 12-06 mcg by ity of tablet 00:00: 04:59 mouth. [place] 00 :00 Medical Branch cholecalcif Yes [id number] Q7D Take [facility], 12-05 25,000 [facility] D3, 17:42: Units by Me dical 50,000 unit 48 mouth once Ce nter Tab a week. zolpidem Yes 10mg Take [address] [facility] (AMBIEN) 10 8- by mouth [facility] mg tablet 17:42: every Medical 48 night as Center needed for Insomnia. rosuvastati Yes 20mg QD Take [address] [facility] n (CRESTOR) 801 by mouth [facility] 20 MG 17:42: daily. Medical tablet 48 Center traMADol Yes 50mg Take [address] [facility] (ULTRAM) 50 801 by mouth [facility] mg tablet 17:42: every 6 Medic al 48 (six) Center hours as needed for Pain. clopidogrel Yes 75mg QD Take [address] [facility] (PLAVIX) 75 801 by mouth [facility] mg tablet 17:42: daily. Medica l 48 Center cholecalcif Yes [id number] Q7D Take [facility], 12-05 25,000 [facility] vitamin D3, 17:42: Units by Me dical 50,000 unit 48 mouth once Ce nter Tab a week. zolpidem Yes 10mg Take [address] [facility] (AMBIEN) 10 8-01 by mouth [facility] mg tablet 17:42: every Medical 48 night as Center needed for Insomnia. rosuvastati Yes 20mg QD Take [address] [facility] n (CRESTOR) 8-01 by mouth [facility] 20 MG 17:42: daily. Medical tablet 48 Center traMADol 0 Yes 50mg Take [address] [facility] (ULTRAM) 50 8-01 by mouth [facility] mg tablet 17:42: every 6 Medic al 48 (six) Center hours as needed for Pain. clopidogrel 2019- Yes 75mg QD Take [address] [facility] (PLAVIX) 75 8-01 by mouth [facility] mg tablet 17:42: daily. [address] cholecalcif [address] Yes [id number] Q7D Take [facility], 8- 25,000 [facility] vitamin D3, 17:42: Units by Me dical 50,000 unit 48 mouth once Ce nter Tab a week. zolpidem 2019-0 Yes 10mg Take [address] [facility] (AMBIEN) 10 8-01 by mouth [facility] mg tablet 17:42: every Medical 48 night as Center needed for Insomnia. rosuvastati 2019-0 Yes 20mg QD Take [address] [facility] n (CRESTOR) 8-01 by mouth [facility] 20 MG 17:42: daily. Medical tablet 48 Center traMADol 2018-0 Yes 50mg Take [address] [facility] (ULTRAM) 50 8-01 by mouth [facility] mg tablet 17:42: every 6 Medic al 48 (six) Center hours as needed for Pain. clopidogrel 2018-0 Yes 75mg QD Take [address] [facility] (PLAVIX) 75 8-01 by mouth [facility] mg tablet 17:42: daily. [address] cholecalcif 0 Yes [id number] Q7D Take [facility], 8 25,000 [facility] D3, 17:42: Units by Me dical 50,000 unit 48 mouth once Ce nter Tab a week. zolpidem 2018-0 Yes 10mg Take [address] [facility] (AMBIEN) 10 8-01 by mouth [facility] mg tablet 17:42: every Medical 48 night as Center needed for Insomnia. rosuvastati 2019-0 Yes 20mg QD Take [address] [facility] n (CRESTOR) 8-01 by mouth [facility] 20 MG 17:42: daily. Medical tablet 48 Center traMADol 2019-0 Yes 50mg Take [address] [facility] (ULTRAM) 50 8-01 by mouth [facility] mg tablet 17:42: every 6 Medic al 48 (six) Center hours as needed for Pain. clopidogrel 2019-0 Yes 75mg QD Take [address] [facility] (PLAVIX) 75 8-01 by mouth [facility] mg tablet 17:42: daily. [address] cholecalcif [address] Yes [id number] Q7D Take [facility], 8- 25,000 [facility] vitamin D3, 17:42: Units by Me dical 50,000 unit 48 mouth once Ce nter Tab a week. zolpidem 2019-0 Yes 10mg Take [address] [facility] (AMBIEN) 10 8-01 by mouth [facility] mg tablet 17:42: every Medical 48 night as Center needed for Insomnia. rosuvastati 2019-0 Yes 20mg QD Take [address] [facility] n (CRESTOR) 8- by mouth [facility] 20 MG 17:42: daily. Medical tablet 48 Center traMADol 0 Yes 50mg Take [address] [facility] (ULTRAM) 50 8-01 by mouth [facility] mg tablet 17:42: every 6 Medic al 48 (six) Center hours as needed for Pain. clopidogrel Yes 75mg QD Take [address] [facility] (PLAVIX) 75 8-01 by mouth [facility] mg tablet 17:42: daily. [facility] [address] cholecalcif Yes [id number] Q7D Take [facility], 8 25,000 [facility] vitamin D3, 17:42: Units by Me dical 50,000 unit 48 mouth once Ce nter Tab a week. zolpidem Yes 10mg Take [address] [facility] (AMBIEN) 10 8- by mouth [facility] mg tablet 17:42: every Medical 48 night as Center needed for Insomnia. rosuvastati Yes 20mg QD Take [address] [facility] n (CRESTOR) 8 by mouth [facility] s 20 MG 17:42: daily. Medical tablet 48 [place] traMADol 0 Yes 50mg Take [address] [facility] (ULTRAM) 50 01 by mouth [facility] s mg tablet 17:42: every 6 Medic al 48 (six) Center hours as needed for Pain. clopidogrel 2019- Yes 75mg QD Take [address] [facility] (PLAVIX) 75 8-01 by mouth [facility] mg tablet 17:42: daily. [facility] [address] apixaban 5 2019-0 Yes 5mg Take 5 mg [facility] [place] mg tablet 12-05 by mouth. ity o f 00:00: [address] famotidine 2019-0 Yes 20mg Take 20 mg U nivers 20 mg 12-05 by mouth. ity of tablet 00:00: [address] Melatonin 5 2019-0 Yes 5mg Take 5 mg U nivers mg tablet 8-01 by mouth. ity o f 00:00: [facility] apixaban 5 2019-0 Yes 5mg Take 5 mg [facility] [place] mg tablet 8-01 by mouth. ity o f 00:00: [facility] famotidine 2019-0 Yes 20mg Take 20 mg U nivers 20 mg 8-01 by mouth. ity of tablet 00:00: [facility] Melatonin 5 2019-0 Yes 5mg Take 5 mg U nivers mg tablet 8-01 by mouth. ity o f 00:00: [facility] apixaban 5 2019-0 Yes 5mg Take 5 mg [facility] [place] mg tablet 8-01 by mouth. ity o f 00:00: [facility] famotidine 2019-0 Yes 20mg Take 20 mg U nivers 20 mg 8-01 by mouth. ity of tablet 00:00: [facility] Melatonin 5 2019-0 Yes 5mg Take 5 mg U nivers mg tablet 8-01 by mouth. ity o f 00:00: [facility] apixaban 5 2019-0 Yes 5mg Take 5 mg [facility] [place] mg tablet 8-01 by mouth. ity o f 00:00: [facility] famotidine 2019-0 Yes 20mg Take 20 mg U nivers 20 mg 8-01 by mouth. ity of tablet 00:00: [facility] Melatonin 5 2019-0 Yes 5mg Take 5 mg U nivers mg tablet 8-01 by mouth. ity o f 00:00: [facility] apixaban 5 2019-0 Yes 5mg Take 5 mg [facility] [place] mg tablet 8-01 by mouth. ity o f 00:00: [facility] famotidine 2019-0 Yes 20mg Take 20 mg U nivers 20 mg 8-01 by mouth. ity of tablet 00:00: [facility] Melatonin 5 2019-0 Yes 5mg Take 5 mg U nivers mg tablet 8-01 by mouth. ity o f 00:00: [facility] apixaban 5 2019-0 Yes 5mg Take 5 mg [facility] [place] mg tablet 8-01 by mouth. ity o f 00:00: [facility] famotidine 2019-0 Yes 20mg Take 20 mg U nivers 20 mg 8-01 by mouth. ity of tablet 00:00: Medical Branch Melatonin 5 2019-0 Yes 5mg Take 5 mg [facility] mg tablet 8-01 by mouth. ity o f 00:00: [facility] apixaban 5 2019-0 Yes 5mg Take 5 mg [facility] [place] mg tablet 8-01 by mouth. ity o f 00:00: [facility] famotidine 2019-0 Yes 20mg Take 20 mg U nivers 20 mg 8-01 by mouth. ity of tablet 00:00: [facility] Melatonin 5 2019-0 Yes 5mg Take 5 mg U [facility]ivers mg tablet 8-01 by mouth. ity o f 00:00: [facility] apixaban 5 2019-0 Yes 5mg Take 5 mg [facility] [place] mg tablet 8-01 by mouth. ity o f 00:00: [facility] famotidine 2019-0 Yes 20mg Take 20 mg U nivers 20 mg 8-01 by mouth. ity of tablet 00:00: [facility] Melatonin 5 2019-0 Yes 5mg Take 5 mg U nivers mg tablet 8-01 by mouth. ity o f 00:00: [facility] apixaban 5 2019-0 Yes 5mg Take 5 mg [facility] [place] mg tablet 8-01 by mouth. ity o f 00:00: [facility] famotidine 2019-0 Yes 20mg Take 20 mg U nivers 20 mg 8-01 by mouth. ity of tablet 00:00: [facility] Melatonin 5 2019-0 Yes 5mg Take 5 mg [facility]ivers mg tablet 8-01 by mouth. ity o f 00:00: [facility] apixaban 5 2019-0 Yes 5mg Take 5 mg [facility] [place] mg tablet 8-01 by mouth. ity o f 00:00: [facility] famotidine 2019-0 Yes 20mg Take 20 mg U nivers 20 mg 8-01 by mouth. ity of tablet 00:00: [facility] Melatonin 5 2019-0 Yes 5mg Take 5 mg [facility]ivers mg tablet 8-01 by mouth. ity o f 00:00: [facility] apixaban 5 2019-0 Yes 5mg Take 5 mg [facility] [place] mg tablet 8-01 by mouth. ity o f 00:00: [facility] famotidine 2019-0 Yes 20mg Take 20 mg U nivers 20 mg 8 by mouth. ity of tablet 00:00: [facility] Melatonin 5 2019-0 Yes 5mg Take 5 mg U [facility]ivers mg tablet 8 by mouth. ity o f 00:00: [facility] apixaban 5 2019-0 Yes 5mg Take 5 mg [facility] [place] mg tablet 8 by mouth. ity o f 00:00: [facility] famotidine 2019-0 Yes 20mg Take 20 mg U nivers 20 mg 8 by mouth. ity of tablet 00:00: [place] [facility] Melatonin 5 2019-0 Yes 5mg Take 5 mg U nivers mg tablet 12-05 by mouth. ity o f 00:00: [facility] apixaban 5 2019-0 Yes 5mg Take 5 mg [facility] [place] mg tablet 12-05 by mouth. ity o f 00:00: [facility] famotidine 2019-0 Yes 20mg Take 20 mg U nivers 20 mg 12-05 by mouth. ity of tablet 00:00: [place] [facility] Melatonin 5 2019-0 Yes 5mg Take 5 mg U nivers mg tablet 12-05 by mouth. ity o f 00:00: [place] [facility] gabapentin 2019-0 Yes 300mg Q.5D Take 0.[address] [facility] [address] [facility] (NEURONTIN) 12-05 tablets [facility] 600 MG 00:00: (300 mg Medical tablet 00 total) by Center mouth 2 (two) times daily. apixaban 2019-0 Yes 5mg Q.5D Take [address] [facility] (ELIQUIS) 5 - tablet (5 Lisa es mg Tab 00:00: mg total) Medica l tablet 00 by mouth 2 Center (two) times daily. famotidine 2019-0 Yes 20mg Q.5D Take [facility] (PEPCID[facility] 20 8- tablet (20 [facility] MG tablet 00:00: mg total) Med ical 00 by mouth 2 Center (two) times daily. melatonin 5 2019-0 Yes 5mg QD Take [address] [facility] mg Tab 8- tablet (5 [facility] tablet 00:00: mg total) Medica l 00 by mouth Center nightly. gabapentin 2019-0 Yes 300mg Q.5D Take 0.[address] [facility] [address] [facility] (NEURONTIN) 8-01 tablets [facility] 600 MG 00:00: (300 mg Medical tablet 00 total) by Center mouth 2 (two) times daily. apixaban 2019-0 Yes 5mg Q.5D Take [address] [facility] (ELIQUIS) 5 8-01 tablet (5 Lisa es mg Tab 00:00: mg total) Medica l tablet 00 by mouth 2 Center (two) times daily. famotidine 2019-0 Yes 20mg Q.5D Take 1 [facility] (PEPCID) 20 8-01 tablet (20 Ani [facility]es MG tablet 00:00: mg total) Med ical 00 by mouth 2 Center (two) times daily. melatonin 5 2019-0 Yes 5mg QD Take [address] [facility] mg Tab 8-01 tablet (5 [facility] tablet 00:00: mg total) Medica l 00 by mouth Center nightly. gabapentin 2019-0 Yes 300mg Q.5D Take 0.[address] [facility] [address] [facility] (NEURONTIN) 8-01 tablets [facility] 600 MG 00:00: (300 mg Medical tablet 00 total) by Center mouth 2 (two) times daily. apixaban 2019-0 Yes 5mg Q.5D Take [address] [facility] (ELIQUIS) 5 8-01 tablet (5 Lisa es mg Tab 00:00: mg total) Medica l tablet 00 by mouth 2 Center (two) times daily. famotidine 2019-0 Yes 20mg Q.5D Take 1 [facility] (PEPCID) 20 8-01 tablet (20 Ani kes MG tablet 00:00: mg total) Med ical 00 by mouth 2 Center (two) times daily. melatonin 5 2019-0 Yes 5mg QD Take [address] [facility] mg Tab 8-01 tablet (5 [facility] tablet 00:00: mg total) Medica l 00 by mouth Center nightly. gabapentin 2019-0 Yes 300mg Q.5D Take 0.[address] [facility] [address] [facility] (NEURONTIN) 8-01 tablets [facility] 600 MG 00:00: (300 mg Medical tablet 00 total) by Center mouth 2 (two) times daily. apixaban 2019-0 Yes 5mg Q.5D Take [address] [facility] (ELIQUIS) 5 8-01 tablet (5 [facility] mg Tab 00:00: mg total) Medica l tablet 00 by mouth 2 Center (two) times daily. famotidine 2019-0 Yes 20mg Q.5D Take 1 [facility] (PEPCID) 20 8-01 tablet (20 Ani kes MG tablet 00:00: mg total) Med ical 00 by mouth 2 Center (two) times daily. melatonin 5 2019-0 Yes 5mg QD Take [address] [facility] mg Tab 8-01 tablet (5 [facility] tablet 00:00: mg total) Medica l 00 by mouth Center nightly. gabapentin 2019-0 Yes 300mg Q.5D Take 0.[address] [facility] (NEURONTIN) 8-01 tablets [facility] 600 MG 00:00: (300 mg Medical tablet 00 total) by Center mouth 2 (two) times daily. apixaban 2019-0 Yes 5mg Q.5D Take [address] [facility] (ELIQUIS) 5 8-01 tablet (5 Lisa es mg Tab 00:00: mg total) Medica l tablet 00 by mouth 2 Center (two) times daily. famotidine 2019-0 Yes 20mg Q.5D Take 1 [facility] (PEPCID) 20 8-01 tablet (20 Ani [facility] MG tablet 00:00: mg total) Med ical 00 by mouth 2 Center (two) times daily. melatonin 5 2019-0 Yes 5mg QD Take [address] [facility] mg Tab 8-01 tablet (5 [facility] tablet 00:00: mg total) Medica l 00 by mouth Center nightly. gabapentin 2019-0 Yes 300mg Q.5D Take 0.[address] (NEURONTIN) 8-01 tablets [facility] 600 MG 00:00: (300 mg Medical tablet 00 total) by Center mouth 2 (two) times daily. apixaban 2019-0 Yes 5mg Q.5D Take [address] [facility] (ELIQUIS) 5 8-01 tablet (5 Lisa [facility] mg Tab 00:00: mg total) Medica l tablet 00 by mouth 2 Center (two) times daily. famotidine 2019-0 Yes 20mg Q.5D Take [facility] (PEPCID) 20 8-01 tablet (20 Ani kes MG tablet 00:00: mg total) Med ical 00 by mouth 2 Center (two) times daily. melatonin 5 2019-0 Yes 5mg QD Take [address] [facility] mg Tab 8-01 tablet (5 [facility] tablet 00:00: mg total) Medica l 00 by mouth Center nightly. BYSTOLIC 10 0 Yes Univer s mg tablet 7-30 ity of 00:00: [place] [facility] BYSTOLIC 10 2018-0 Yes Univer s mg tablet 7-30 ity of 00:00: [place] [facility] BYSTOLIC 10 2018-0 Yes Univer s mg tablet 7-30 ity of 00:00: [place] [facility] BYSTOLIC 10 2018-0 Yes Univer s mg tablet 7-30 ity of 00:00: [place] [facility] BYSTOLIC 10 2018-0 Yes Univer s mg tablet 7-30 ity of 00:00: [place] [facility] BYSTOLIC 10 2018-0 Yes Univer s mg tablet 7-30 ity of 00:00: [place] [facility] BYSTOLIC 10 0 Yes Univer s mg tablet 7-30 ity of 00:00: [place] [facility] BYSTOLIC 10 0 Yes Univer s mg tablet 7-30 ity of 00:00: [place] [facility] BYSTOLIC 10 2018-0 Yes Univer s mg tablet 7-30 ity of 00:00: [place] [facility] BYSTOLIC 10 0 Yes Univer s mg tablet 7-30 ity of 00:00: [place] [facility] BYSTOLIC 10 2018-0 Yes Univer s mg tablet 7-30 ity of 00:00: [place] [facility] BYSTOLIC 10 2018-0 Yes Univer s mg tablet 7-30 ity of 00:00: [place] [facility] BYSTOLIC 10 2018-0 Yes Univer s mg tablet 7-30 ity of 00:00: [place] [facility] METFORMIN 2019-0 Yes [id number] TAKE ONE [facility] 1,000 mg 5-03 TABLET BY ity of tablet 00:00: MOUTH 00 TWICE A Medical DAY WITH Branch FOOD METFORMIN 2019-0 Yes [id number] TAKE ONE [facility] 1,000 mg 5-03 TABLET BY ity of tablet 00:00: MOUTH 00 TWICE A Medical DAY WITH Branch FOOD METFORMIN 2019-0 Yes [id number] TAKE ONE [facility] 1,000 mg 5-03 TABLET BY ity of tablet 00:00: MOUTH 00 TWICE A Medical DAY WITH Branch FOOD METFORMIN 2019-0 Yes [id number] TAKE ONE [facility] 1,000 mg 5-03 TABLET BY ity of tablet 00:00: MOUTH [place] 00 TWICE A Medical DAY WITH Branch FOOD METFORMIN 2019-0 Yes [id number] TAKE ONE [facility] 1,000 mg 5-03 TABLET BY ity of tablet 00:00: MOUTH [place] 00 TWICE A Medical DAY WITH Branch FOOD METFORMIN 2019-0 Yes [id number] TAKE ONE [facility] 1,000 mg 5-03 TABLET BY ity of tablet 00:00: MOUTH [place] 00 TWICE A Medical DAY WITH Branch FOOD METFORMIN 2019-0 Yes [id number] TAKE ONE [facility] 1,000 mg 5-03 TABLET BY ity of tablet 00:00: MOUTH [place] 00 TWICE A Medical DAY WITH Branch FOOD METFORMIN 2019-0 Yes [id number] TAKE ONE [facility] 1,000 mg 5-03 TABLET BY ity of tablet 00:00: MOUTH [place] 00 TWICE A Medical DAY WITH Branch FOOD METFORMIN 2019-0 Yes [id number] TAKE ONE [facility] 1,000 mg 5-03 TABLET BY ity of tablet 00:00: MOUTH [place] 00 TWICE A Medical DAY WITH Branch FOOD METFORMIN 2019-0 Yes [id number] TAKE ONE [facility] 1,000 mg 5-03 TABLET BY ity of tablet 00:00: MOUTH [place] 00 TWICE A Medical DAY WITH Branch FOOD METFORMIN 2019-0 Yes [id number] TAKE ONE [facility] 1,000 mg 5-03 TABLET BY ity of tablet 00:00: MOUTH [place] 00 TWICE A Medical DAY WITH Branch FOOD METFORMIN 2019-0 Yes [id number] TAKE ONE [facility] 1,000 mg 5-03 TABLET BY ity of tablet 00:00: MOUTH [place] 00 TWICE A Medical DAY WITH Branch FOOD METFORMIN 2019-0 Yes [id number] TAKE ONE [facility] 1,000 mg 5-03 TABLET BY ity of tablet 00:00: MOUTH [place] 00 TWICE A Medical DAY WITH Branch FOOD METFORMIN 2019-0 Yes [id number] TAKE ONE [facility] 1,000 mg 5-03 TABLET BY ity of tablet 00:00: MOUTH [place] 00 TWICE A Medical DAY WITH Branch FOOD METFORMIN 2019-0 Yes [id number] TAKE ONE [facility] 1,000 mg 5-03 TABLET BY ity of tablet 00:00: MOUTH [place] 00 TWICE A Medical DAY WITH Branch FOOD METFORMIN 2019-0 Yes [id number] TAKE ONE [facility] 1,000 mg 5-03 TABLET BY ity of tablet 00:00: MOUTH [place] 00 TWICE A Medical DAY WITH Branch FOOD METFORMIN 2019-0 Yes [id number] TAKE ONE [facility] 1,000 mg 5-03 TABLET BY ity of tablet 00:00: MOUTH [place] 00 TWICE A Medical DAY WITH Branch FOOD ROSUVASTATI 2017-05 Yes Take by Uni vers N CALCIUM 2-07 mouth. ity of (CRESTOR 15:40: Indication Aditya as ORAL) 07 s: Medical [place] Branch is unsure of dosage aspirin 325 2017-05 Yes 325mg Take 325 U nivers mg tablet 2-07 mg by ity of 15:40: mouth [place] 07 daily. Medical Branch candesartan 2017-05 Yes 1{tbl} Take 1 Un [place] -hydrochlor 2-07 tablet by ity of othiazide 15:40: mouth [place] (ATACAND 07 daily. Medical HCT) Branch 16-12.5 mg per tablet zolpidem 2017-05 Yes 5mg Take 5 mg Univ ers (AMBIEN) 5 2-07 by mouth ity o f mg tablet 15:40: at bedtime [place] 07 as needed Medical for Branch Insomnia. clopidogrel 2017-05 Yes 75mg Take 75 mg Univers (PLAVIX) 75 2-07 by mouth ity of mg tablet 15:40: daily. Medical Branch CARVEDILOL 2017-05 Yes Take by Univ ers (COREG 2-07 mouth. ity of ORAL) 15:40: Indication [place] 07 s: Patient Medical is unsure Branch of dosage ROSUVASTATI 2017-05 Yes Take by Uni vers N CALCIUM 2-07 mouth. ity of (CRESTOR 15:40: Indication Aditya as ORAL) 07 s: Medical [place] Branch is unsure of dosage aspirin 325 2017-05 Yes 325mg Take 325 U nivers mg tablet 2-07 mg by ity of 15:40: mouth [place] 07 daily. Medical Branch candesartan 2017-05 Yes 1{tbl} Take 1 Un [place] -hydrochlor 2-07 tablet by ity of othiazide 15:40: mouth [place] (ATACAND 07 daily. Medical HCT) Branch 16-12.5 mg per tablet zolpidem 2017-05 Yes 5mg Take 5 mg Univ ers (AMBIEN) 5 2-07 by mouth ity o f mg tablet 15:40: at bedtime [place] 07 as needed Medical for Branch Insomnia. clopidogrel 2017-05 Yes 75mg Take 75 mg Univers (PLAVIX) 75 2-07 by mouth ity of mg tablet 15:40: daily. [place] 07 Medical Branch CARVEDILOL 2017-05 Yes Take by [facility] (COREG 2-07 mouth. ity of ORAL) 15:40: Indication [place] s: Patient Medical is unsure Branch of dosage Insulin 2017-05 Yes [id number] 28U inject 28 Univers Lisp & Lisp 2-07 Units ity of Prot, Hum, 00:00: under the [place] (HUMALOG 00 skin 2 Medical MIX 75-25 (two) Branch KWIKPEN) times 100 unit/mL daily with (75-25) meals. injection Insulin 2017-05 Yes [id number] 28U inject 28 Univers Lisp [employer] Lisp 2-07 Units ity of Prot, Hum, 00:00: under the [place] (HUMALOG 00 skin 2 Medical MIX 75-25 (two) Branch KWIKPEN) times 100 unit/mL daily with (75-25) meals. injection Insulin 2017-05 Yes [id number] 28U inject 28 Univers Lisp [employer] Lisp 2-07 Units ity of Prot, Hum, 00:00: under the [place] (HUMALOG 00 skin 2 Medical MIX 75-25 (two) Branch KWIKPEN) times 100 unit/mL daily with (75-25) meals. injection Insulin 2017-05 Yes [id number] 28U inject 28 Univers L[employer] Lisp 2-07 Units ity of Prot, Hum, 00:00: under the [place] (HUMALOG 00 skin 2 Medical MIX 75-25 (two) Branch KWIKPEN) times 100 unit/mL daily with (75-25) meals. injection Insulin 2017-05 Yes [id number] 28U inject 28 Univers [place] [employer] [place]isp 2-07 Units ity of Prot, Hum, 00:00: under the [place] (HUMALOG 00 skin 2 Medical MIX 75-25 (two) Branch KWIKPEN) times 100 unit/mL daily with (75-25) meals. injection Insulin 2017-05 Yes [id number] 28U inject 28 Univers [place] [employer] [place] 2-07 Units ity of Prot, Hum, 00:00: under the [place] (HUMALOG 00 skin 2 Medical MIX 75-25 (two) Branch KWIKPEN) times 100 unit/mL daily with (75-25) meals. injection Insulin 2017-05 Yes [id number] 28U inject 28 Univers [place] [employer] [place] 2-07 Units ity of Prot, Hum, 00:00: under the [place] (HUMALOG 00 skin 2 Medical MIX 75-25 (two) Branch KWIKPEN) times 100 unit/mL daily with (75-25) meals. injection Insulin 2017-05 Yes [id number] 28U inject 28 Univers [place] [employer] [place] 2-07 Units ity of Prot, Hum, 00:00: under the [place] (HUMALOG 00 skin 2 Medical MIX 75-25 (two) Branch KWIKPEN) times 100 unit/mL daily with (75-25) meals. injection Insulin 2017-05 Yes [id number] 28U inject 28 Univers [place] [employer] [place] 2-07 Units ity of Prot, Hum, 00:00: under the [place] (HUMALOG 00 skin 2 Medical MIX 75-25 (two) Branch KWIKPEN) times 100 unit/mL daily with (75-25) meals. injection Insulin 2017-05 Yes [id number] 28U inject 28 Univers [place] [employer] [place]isp 2-07 Units ity of Prot, Hum, 00:00: under the [place] (HUMALOG 00 skin 2 Medical MIX 75-25 (two) Branch KWIKPEN) times 100 unit/mL daily with (75-25) meals. injection Insulin 2017-05 Yes [id number] 28U inject 28 Univers [place] [place]isp 2-07 Units ity of Prot, Hum, 00:00: under the [place] (HUMALOG 00 skin 2 Medical MIX 75-25 (two) Branch KWIKPEN) times 100 unit/mL daily with (75-25) meals. injection Insulin 2017-05 Yes [id number] 28U inject 28 Univers [place] [employer] [place] 2-07 Units ity of Prot, Hum, 00:00: under the [place] (HUMALOG 00 skin 2 Medical MIX 75-25 (two) Branch KWIKPEN) times 100 unit/mL daily with (75-25) meals. injection Insulin 2017-05 Yes [id number] 28U inject 28 Univers [place] [employer] [place] 2-07 Units ity of Prot, Hum, 00:00: under the [place] (HUMALOG 00 skin 2 Medical MIX 75-25 (two) Branch KWIKPEN) times 100 unit/mL daily with (75-25) meals. injection Insulin 2017-05 Yes [id number] 28U inject 28 Univers [place] [place] 2-07 Units ity of Prot, Hum, 00:00: under the [place] (HUMALOG 00 skin 2 Medical MIX 75-25 (two) Branch KWIKPEN) times 100 unit/mL daily with (75-25) meals. injection Insulin 2017-05 Yes [id number] 28U inject 28 Univers L[employer] Lisp 2-07 Units ity of Prot, Hum, 00:00: under the [place] (HUMALOG 00 skin 2 Medical MIX 75-25 (two) Branch KWIKPEN) times 100 unit/mL daily with (75-25) meals. injection Insulin 2017-05 Yes [id number] 28U inject 28 Univers L[employer] Lisp 2-07 Units ity of Prot, Hum, 00:00: under the [place] (HUMALOG 00 skin 2 Medical MIX 75-25 (two) Branch KWIKPEN) times 100 unit/mL daily with (75-25) meals. injection Insulin 2017-05 Yes [id number] 28U inject 28 Univers L[employer] Lisp 2-07 Units ity of Prot, Hum, 00:00: under the [place] (HUMALOG 00 skin 2 Medical MIX 75-25 (two) Branch KWIKPEN) times 100 unit/mL daily with (75-25) meals. injection BD Yes [id number] USE DAILY Uni vers ULTRAFINE 3-21 WITH ity of III MINI 00:00: TOUJEO [place] PEN 00 Medical gauge x Branch 3/16" Ndle BD Yes [id number] USE DAILY Uni vers ULTRAFINE 3-21 WITH ity of III MINI 00:00: TOUJEO [place] PEN 00 Medical gauge x Branch 3/16" Ndle BD 0 Yes [id number] USE DAILY Uni vers ULTRAFINE 3-21 WITH ity of III MINI 00:00: TOUJEO [place] PEN 00 Medical gauge x Branch 3/16" Ndle BD 0 Yes [id number] USE DAILY Uni vers ULTRAFINE 3-21 WITH ity of III MINI 00:00: TOUJEO [place] PEN Medical gauge x Branch 3/16" Ndle BD Yes [id number] USE DAILY Uni vers ULTRAFINE 3-21 WITH ity of III MINI 00:00: TOUJEO [place] PEN 31 00 Medical gauge x Branch 3/16" Ndle BD 2018-0 Yes [id number] USE DAILY Uni vers ULTRAFINE 3-21 WITH ity of III MINI 00:00: TOUJEO [place] PEN Medical gauge x Branch 3/16" Ndle BD 2018-0 Yes [id number] USE DAILY Uni vers ULTRAFINE 3-21 WITH ity of III MINI 00:00: TOUJEO [place] PEN Medical gauge x Branch 3/16" Ndle BD 2018-0 Yes [id number] USE DAILY Uni vers ULTRAFINE 3-21 WITH ity of III MINI 00:00: TOUJEO [place] PEN Medical gauge x Branch 3/16" Ndle BD 2018-0 Yes [id number] USE DAILY Uni vers ULTRAFINE 3-21 WITH ity of III MINI 00:00: TOUJEO [place] PEN Medical gauge x Branch 3/16" Ndle BD 2018-0 Yes [id number] USE DAILY Uni vers ULTRAFINE 3-21 WITH ity of III MINI 00:00: TOUJEO [place] PEN Medical gauge x Branch 3/16" Ndle BD 2018-0 Yes [id number] USE DAILY Uni vers ULTRAFINE 3-21 WITH ity of III MINI 00:00: TOUJEO [place] PEN Medical gauge x Branch 3/16" Ndle BD 2018-0 Yes [id number] USE DAILY Uni vers ULTRAFINE 3-21 WITH ity of III MINI 00:00: TOUJEO [place] PEN Medical gauge x Branch 3/16" Ndle BD 2018-0 Yes [id number] USE DAILY Uni vers ULTRAFINE 3-21 WITH ity of III MINI 00:00: TOUJEO [place] PEN Medical gauge x Branch 3/16" Ndle BD 2018-0 Yes [id number] USE DAILY Uni vers ULTRAFINE 3-21 WITH ity of III MINI 00:00: TOUJEO [place] PEN Medical gauge x Branch 3/16" Ndle BD 2018-0 Yes [id number] USE DAILY Uni vers ULTRAFINE 3-21 WITH ity of III MINI 00:00: TOUJEO [place] PEN Medical gauge x Branch 3/16" Ndle BD 2018-0 Yes [id number] USE DAILY Uni vers ULTRAFINE 3-21 WITH ity of III MINI 00:00: TOUJEO [place] PEN Medical gauge x Branch 07/20" Ndle BD 2018-0 Yes [id number] USE DAILY Uni vers ULTRAFINE 3-21 WITH ity of III MINI 00:00: BALA [place] PEN Medical gauge x Branch 16" Ndle Immunizations Ordered Immunization Filled Immunization Date Status Commen ts Source Name Name Pneumococcal 2018-11-[address] [facility] Conjugate (Prevnar) 00:00:00 [facility] Pneumococcal 2018-11-[address] [facility] Conjugate (Prevnar) 00:00:00 [facility] Pneumococcal 2018-11-[address] [facility] Conjugate (Prevnar) 00:00:00 [facility] Pneumococcal 2018-11-[address] [facility] Conjugate (Prevnar) 00:00:00 [facility] Pneumococcal 2018-11-[address] [facility] Conjugate (Prevnar) 00:00:00 [facility] Pneumococcal 2018-11-[address] [facility] Conjugate (Prevnar) 00:00:00 [facility] Vital Signs Vital Name Observation Time Observation Value Comments Source Systolic blood 2019-01-20 16:13:00 120 mm[Hg] Univer sity [facility] Diastolic blood 2019-01-20 16:13:00 66 [facility]Hg[facility] 2019-01-20 16:13:00 66 /min [facility] Body temperature 2019-01-20 16:13:00 37.33 [facility] Res[facility] rate 2019-01-20 16:13:00 16 /min [facility] Body height 2019-01-20 16:13:00 160 cm [facility] Body weight 2019-01-20 16:13:00 72.122 kg [facility] BMI 2019-01-20 16:13:00 28.17 kg/m2 [facility] Systolic blood 2018-12-27 17:00:00 150 mm[Hg] Univer sity of [facility] Diastolic blood 2018-12-27 17:00:00 51 mm[Hg] Unive rsity [facility] Heart rate 2018-12-27 17:00:00 69 /min [facility] Body temperature 2018-12-27 17:00:00 36.72 Christiana [facility] Respiratory rate 2018-12-27 17:00:00 20 /min [facility] Oxygen saturation in 2018-12-27 17:00:00 100 /min [facility] Arterial blood by [facility] Pulse oximetry Branch Body height 2018-12-26 03:55:00 160 cm [facility] Body weight 2018-12-26 01:00:00 60 kg [facility] BMI 2018-12-26 01:00:00 23.43 kg/m2 [facility] Systolic blood 2018-12-24 19:12:00 145 mm[facility]Hg[facility] Diastolic blood 2018-12-24 19:12:00 58 mm[Hg] [facility] Heart rate 2018-12-24 19:10:00 68 /min [facility] Body temperature 2018-12-24 19:10:00 37.11 Christiana [facility] Respiratory rate 2018-12-24 19:10:00 18 /min [facility] Systolic (mm Hg) 2019-01-17 19:11:00 Luis Angel Hwang Diastolic (mm Hg) 2019-01-17 19:11:00 Mem orial [place] Heart Rate 2019-01-17 19:11:00 [facility] [place] [facility] Temperature Oral (F) 2019-01-17 19:11:00 98.8 F [facility] Height 2019-01-17 19:11:00 160.02 cm [facility] Weight 2019-01-17 19:11:00 [facility] [place] [facility] BMI Calculated 2019-01-17 19:11:00 Erinn Ramsay Procedures Procedure Date / Time Performing Clinician Source Performed REFERRAL- 2019-05-27 06:01:00 Doctor Unassigned, No [facility] REQUEST/RESPONSE [facility] AUTHORIZATION FOR RELEASE 2018-12-30 05:01:00 Doctor Unassigned, No [facility] EXTERNAL PROVIDER RECORDS 2018-12-29 05:01:00 Doctor Unassigned, No [facility] POCT GLUCOSE (AUTOMATED) 2018-12-27 21:43:00 [facility]UCOSE (AUTOMATED) 2018-12-27 17:27:00 Jorge Gillis Uni [facility] PROTHROMBIN TIME / INR 2018-12-27 17:16:00 Mai Rosen [facility] ACTIVATED PARTIAL 2018-12-27 17:16:00 Brandon Rosen [facility] CT HEAD WO CONTRAST 2018-12-27 17:02:31 [facility] ([facility]OMATED) 2018-12-27 14:12:00 [facility] CERVICAL SPINE W WO 2018-12-27 05:21:32 Go [facility] MR LUMBAR SPINE W WO 2018-12-27 05:21:32 Go [facility] MR THORACIC SPINE W WO 2018-12-27 05:21:32 Go [place] [facility] POCT GLUCOSE (AUTOMATED) 2018-12-27 01:08:00 Jorge Gillis Uni [facility] POCT GLUCOSE (AUTOMATED) 2018-12-26 21:53:00 Jorge Gillis Uni [facility] POCT GLUCOSE (AUTOMATED) 2018-12-26 16:37:00 Jorge Gillis Uni [facility] POCT GLUCOSE (AUTOMATED) 2018-12-26 13:22:00 Jorge Gillis [facility] GLYCOSYLATED HEMOGLOBIN 2018-12-26 11:08:00 Koko Rodríguez [facility] (A1C) [facility] MAGNESIUM 2018-12-26 11:05:00 Marcos [facility] o f [facility] HEPATIC FUNCTION PANEL 2018-12-26 11:05:00 Koko Rodríguez [facility] ([id number]) (ALB,T.PRO,BILI [facility] T,BU/BC,ALT,AST,ALK PHOS) BASIC METABOLIC PANEL 2018-12-26 11:05:00 Koko Rodríguez [facility] (NA, K, CL, CO2, GLUCOSE, [facility] BUN, CREATININE, CA) URINALYSIS 2018-12-26 06:13:00 Marcos [facility] PHOSPHORUS 2018-12-26 02:58:00 [facility] CREATINE KINASE 2018-12-26 02:58:00 [facility] 2018-12-26 02:58:00 Marcos [facility] VITAMIN B12, LEVEL 2018-12-26 02:58:00 [facility] 2018-12-26 02:58:00 Rodríguez [facility] THYROID STIMULATING 2018-12-26 02:58:00 [facility] HEPATIC FUNCTION PANEL 2018-12-26 02:58:00 Koko Rodríguez [facility] ([id number]) (ALB,T.PRO,BILI [facility] Branch T,BU/BC,ALT,AST,ALK PHOS) BASIC METABOLIC PANEL 2018-12-26 02:58:00 [facility] (NA, K, CL, CO2, GLUCOSE, [facility] BUN, CREATININE, CA) LIPID PANEL ([id number])(TOTAL 2018-12-26 02:58:00 Koko Rodríguez [facility] CHOLESTEROL, [facility] TRIGLYCERIDES, HDL) CBC WITH DIFFERENTIAL 2018-12-26 02:58:00 [facility]YCOSYL[facility] HEMOGLOBIN 2018-12-26 02:58:00 [facility] (A1C) [facility] POCT GLUCOSE (AUTOMATED) 2018-12-26 02:24:00 Jorge Gillis [facility] NO SHOW OR MISSED 2018-12-24 18:15:50 Doctor Unassigned, No [facility] APPOINTMENT POLICY Name [facility] ACKNOWLEDGEMENT EXTERNAL PROVIDER RECORDS 2018-12-17 05:01:00 Doctor Unassigned, [facility] Branch HOSPITAL ADMISSION 2018-12-06 05:01:00 Doctor Unassigned, No Uni versity of [facility] Plan of Care Planned Activity Planned Date Details Comments Source Future Scheduled 2020-01-06 INFLUENZA VACCINE (#1) [facility] 00:00:00 [code = INFLUENZA Medical Ce nter VACCINE (#1)] Future Scheduled 2019-11-30 PNEUMOCOCCAL 65+ YRS [facility] Test 00:00:00 (2 of 2 - PPSV23) Medical Ce nter [code = PNEUMOCOCCAL 65+ YRS (2 of 2 - PPSV23)] Future Scheduled [address] [facility] Test 00:00:00 malignant neoplasm of [facility] breast (procedure) [code = 764405793] Future Scheduled [address] [facility] Test 00:00:00 malignant neoplasm of [facility] colon (procedure) [code = 648207479] Encounters Start End Encounter Admission Attending Care Care Encounter Source Date/Time Date/Time Type Type Clinicians Facility Department ID 2021-06-01 Outpatient [facility] [id number] Common 14:40:35 [facility] 2021-06-01 Outpatient [facility] [id number] Common 14:39:51 [facility] 2019-05-27 2019-05-27 Orders Doctor [place] [id number] Univers 00:00:00 00:00:00 Only Unassigned, MARIBEL [id number] ity of [place] [facility] [id number] Aditya as [phone] [place] [address] Branch 2019-01-20 2019-01-24 Office Constantin [facility] [id number] [facility] 11:02:40 11:44:23 Visit Arthur Mares [id number] ity [place] [id number] [place] [phone] [facility] 092 [facility] 2019-01-17 2019-01-18 Outpatient nullFlavo [facility] [id number] Memoria 18:50:00 04:59:59 r Primary 01 [facility] Carmen nn Mitesh 2018-12-31 2018-12-31 Telephone DEVAN Killian [id number] Univers 00:00:00 00:00:00 Arthur Mares [id number] [id number] Profess[place] [phone] [facility] 092 [facility] 2018-12-30 2018-12-30 Orders Doctor SAEED 1.2.840.114 [id number] Univers 00:00:00 00:00:00 Only Unassigned, MARIBEL [id number] ity of [place] [facility] [id number] Aditya as [phone] [facility] 009 [place] 2018-12-30 2018-12-30 Transition Mitch Sanchez 1.2.840.114 [id number] Univers 00:00:00 00:00:00 of Care Izabella L Vilchis [id number] i ty [place] 4[place].2.[place] [phone] [facility] 403 [place] 2018-12-29 2018-12-29 Orders Doctor SAEED 1.2.840.114 [id number] Univers 00:00:00 00:00:00 Only Unassigned, MARIBEL [id number] ity of [place] [facility] [id number] Aditya as [phone] [facility] 009 [place] 2018-12-25 2018-12-27 Hospital CarlinJorge Idalmis 1.2.840.114 [id number] Univers 18:40:00 17:51:00 Encounter S [place] [id number] ity of Hospital [id number] Aditya as [phone] [facility] 097 [place] 2018-12-25 2018-12-25 Telephone Constantin MSDIEUDONNE 1.2.840.114 [id number] Univers 00:00:00 00:00:00 Arthur Mares [id number] [place].2.[place] [phone] [place] 632722 [facility] 2018-12-24 2018-12-24 Office DEVAN Killian [id number] Univers 16:08:40 16:08:54 Visit Arthur Mares [id number] [id number] Profess[place] [phone] [facility] 092 [facility] 2018-12-24 2018-12-24 Orders Doctor SAEED 1.2.840.114 [id number] Univers 00:00:00 00:00:00 Only Unassigned, MARIBEL [id number] ity of [place] [facility] 4.2.7.2.686 Aditya as [phone] [address] 2018-12-17 2018-12-17 Orders Doctor SAEED 1.2.840.114 [id number] Univers 00:00:00 00:00:00 Only Unassigned, MARIBEL [id number] ity of [place] [facility] [id number] Aditya as [phone] [address] 2018-12-09 2018-12-09 [facility] [id number] Univers 00:00:00 00:00:00 Marybeth Mares [id number] i [place] 4[place].2.[place] Profess[place] [phone] [facility] 220 [facility] 2018-12-06 2018-12-06 Orders Doctor SAEED 1.2.840.114 [id number] Univers 00:00:00 00:00:00 Only Unassigned, MARIBEL [id number] ity of [place] [facility] 4.2.7.2.686 Aditya as [phone] [address] Results Test Description Test Time Test Comments Results Result Comments Source URINE CULTURE 2019-04-22 14:14:00 Test Item Value Reference Range Interpretation Comme nts CULTURE (JOE) (test code = KLEBSIELLA PNEUMONIAE A >100,000 [...] + Sulfamethoxazole R (test code = 47) POCT GLUCOSE (AUTOMATED)2018-12-27 21:54:00 Test Item Value Reference Range Interpretation Comments POCT GLU (test code = 6901118489) 123 mg/dL 70-110 H Lab Interpretation (test code = Abnormal 55848-0) [facility] [id number] 18:21:39 Impression: No acute intracranial hemorrhage or mass effect. Nonspecific asymmetrichypoattenuation in the left temporal white matter may reflect sequela ofinfarct with encephalitis thought less likely.Clinically correlate. I, Piero De Oliveira MD., have reviewed this study and agree with theabove report.* * * * * * * * ORIGINAL REPORT * * * * * * * *Exam: CT HEAD WO CONTRAST Clinical History: Neuro deficit(s), subacute Technique:CT head without contrast Comparison: None Findings: Prominence of the ventricles and sulci likely secondary to volume loss. Nohydrocephalus or pathological extra-axial collection noted. Basal cisternsare unremarkable. No acute intracranial hemorrhage. Probable chronic ischemic changes.Asymmetric hypoattenuation in the left temporal white matter. Intracranialatherosclerosis. Bilateral mastoid air cells and paranasal sinuses are clear. Bilateral lenssurgery. Hyperostosis frontalis interna. [facility], Radiant Results Inft User - 12/27/2018 1:23 PM CDT* * * * * * * * ORIGINAL REPORT * * * * * * * *Exam: CT HEAD WO CONTRASTClinical History: Neuro deficit(s), subacute Technique:CT head without contrastComparison: NoneFindings:Prominence of the ventricles and sulci likely secondary to volume loss. Nohydrocephalus or pathological extra-axial collection noted. Basal cisternsare unremarkable.No acute intracranial hemorrhage. Probable chronic ischemic changes.Asymmetric hypoattenuation in the left temporal white matter. Intracranialatherosclerosis.Bilateral mastoid air cells and paranasal sinuses are clear. Bilateral lenssurgery. Hyperostosis frontalis interna.IMPRESSIONImpression:No acute intracranial hemorrhage or mass effect. Nonspecific asymmetrichypoattenuation in the lefttemporal white matter may reflect sequela ofinfarct with encephalitis thought less likely. Clinically correlate.I, Jagdish Taylor MD., have reviewed this study and agree with theabove report.[facility] / INR 2018-12-27 17:41:00 Test Item Value Reference Range Interpretation Comments PROTIME PATIENT (test See_Comment H [Auto mated message] code = 5964-2) The system [employer] generated this result transmitted ref erence range: 10.1 - 1 2.6 Seconds. The reference range was not used to int erpret this result as normal/abnormal . INR (test code = 6301-6) Nor mal INR <1.1; Warfarin Therap eutic range 2.0 to 3. 0 or 2.5 to 3.5, dep ending upon the indica tions. Lab Interpretation (test Abnormal code = 55183-6) [facility]2019-08-23 17:41:00 Test Item Value Reference Range Interpretation Comments APTT Patient (test code = See_Comment [ Automated message] 3173-2) The system [employer] generated this result transmitted ref erence range: 26 - 36 Seconds. The re ference range was not u sed to interpret this result as normal/abnor mal. Lab Interpretation (test Normal code = 02941-6) [facility] GLUCOSE (AUTOMATED)2018-12-27 17:38:00 Test Item Value Reference Range Interpretation Comments POCT GLU (test code = 2271837376) 170 mg/dL 70-110 H Lab Interpretation (test code = Abnormal 26781-0) [facility] GLUCOSE (AUTOMATED)2018-12-27 14:13:00 Test Item Value Reference Range Interpretation Comments POCT GLU (test code = 3299941480) 132 mg/dL 70-110 H Lab Interpretation (test code = Abnormal 26211-0) [facility] LUMBAR SPINE W WO [id number] 13:32:43 No significant spinal canal stenosis or neural foraminal narrowing ispresent at any cervical, thoracic or lumbar level. No cord signalabnormality or enhancement is present. Overall mild degenerative changes are present. Minimal spondylolisthesis atL4-L5 and L5-S1 is associated with moderate facet arthropathy at theselevels with reactive, inflammatory edema involving the facets, morepronounced on theleft. Nonspecific mild intramuscular edema in the mid and lower paraspinalismuscles.* * * * * * * * ORIGINAL REPORT * * * * * * * *MR THORACIC SPINE W WO CONTRAST, MR CERVICAL SPINE W WO CONTRAST, MR LUMBAR SPINE W WO CONTRAST HISTORY: Female 68 years b/l leg weakness COMPARISON: None TECHNIQUE: Multiplanar multi weighted imaging of the cervical, thoracic andlumbar spine were obtained before and following the administration of 12 mLIV Dotarem MRI CERVICAL SPINE: The vertebral bodies are normal in height and in normal alignment. Thecervical cord is normal in caliber and demonstrates normal signalintensity. No focus of abnormal cord enhancement is present. The background marrow signal is unremarkable. A vertebral body hemangiomais present in the anterior aspect of the C5 vertebra. The intervertebraldisc space heights are preserved. C2-C3: No significant spinal canal stenosis or neural foraminal narrowing C3-C4: No significant spinal canal stenosis or neural foraminal narrowing C4-C5: No significant spinal canal stenosis or neural foraminal narrowing C5-C6: A shallow posterior disc osteophyte complex and uncinate hypertrophyresult in minimal spinal canal stenosis and mild right neural foraminalnarrowing C6-C7: No significant spinal canal stenosis or neural foraminal narrowing C7-T1: No significant spinal canal stenosis or neural foraminal narrowing MRI THORACIC SPINE: The vertebral bodies are normal in height and in normal alignment. Thethoracic cord is normal in caliber and demonstrates normal signalintensity. No focus of abnormal cord enhancement is present. The background marrow signal isunremarkable. The intervertebral disc spaceheights are relatively preserved. Scattered small Schmorl's nodes arenoted. Small disc protrusions are noted at the T3-T4, T7-T8 and T11-T12 levelsresulting in no more than minimal central canal narrowing. No high-gradeneural foraminal narrowing is present atany level. MRI LUMBAR SPINE: Minimal anterolisthesis of L4 on L5 and L5 on S1. The vertebral bodies arenormal in height and in otherwise normal alignment. The conus terminates atthe level of T12. The cauda equina nerve roots are unremarkable. Noabnormal enhancement is present within the conus or alongthe cauda equina. The background marrow signal is unremarkable. Hyperintense STIR signal andenhancement are noted about the left L4-L5 and bilateral L5-S1 facets. Theintervertebral disc space heights are preserved. L1- L2: No significant spinal canal stenosis or neural foraminal narrowing L2-L3: No significant spinal canal stenosis or neural foraminal narrowing L3-L4: No significant spinal canal stenosis or neural foraminal narrowing L4-L5: Mild facet arthropathy and ligamentum flavum thickening result in nosignificant spinal canal stenosis or neural foraminal narrowing. An annularfissure is presentin the left posterior lateral aspect of the disc. L5-S1: Mild facet arthropathy results in no significant spinal canalstenosis or neural foraminal narrowing Mild hyperintense STIR signal and enhancement is also noted in theparaspinalis muscles in the mid and lower lumbar spine. [facility], Radiant Results Inft User - 12/27/2018 8:34 AM CDT* * * * * * * * ORIGINAL REPORT * * * * * * * *MR THORACIC SPINE W WO CONTRAST, MR CERVICAL SPINE W WO CONTRAST, MR LUMBAR SPINE W WO CONTRASTHISTORY: Female 68 years b/l leg weakness COMPARISON: NoneTECHNIQUE: Multiplanar multi weighted imaging of the cervical, thoracic andlumbar spine were obtained before and following the administration of 12 mLIV DotaremMRI CERVICAL SPINE:The vertebral bodies are normal in height and in normal alignment. Thecervical cord is normalin caliber and demonstrates normal signalintensity. No focus of abnormal cord enhancement is present.The background marrow signal is unremarkable. A vertebral body hemangiomais present in the anterior aspect of the C5 vertebra. The intervertebraldisc space heights are preserved.C2-C3: No significant spinal canal stenosis or neural foraminal narrowingC3-C4: No significant spinal canal stenosis or neural foraminal narrowingC4-C5: No significant spinal canal stenosis or neural foraminal narrowingC5-C6:A shallow posterior disc osteophyte complex and uncinate hypertrophyresult in minimal spinal canal stenosis and mild right neural foraminalnarrowingC6-C7: No significant spinal canal stenosis or neuralforaminal narrowingC7-T1: No significant spinal canal stenosis or neural foraminal narrowingMRI THORACIC SPINE:The vertebral bodies are normal in height and in normal alignment. Thethoracic cord is normal in caliber and demonstrates normal signalintensity. No focus of abnormal cord enhancement is present.The background marrow signal is unremarkable. The intervertebral disc spaceheights are relativelypreserved. Scattered small Schmorl's nodes arenoted.Small disc protrusions are noted at the T3-T4, T7-T8 and T11-T12 levelsresulting in no more than minimal central canal narrowing. No high-gradeneuralforaminal narrowing is present at any level.MRI LUMBAR SPINE:Minimal anterolisthesis of L4 on L5 andL5 on S1. The vertebral bodies arenormal in height and in otherwise normal alignment. The conus terminates atthe level of T12. The cauda equina nerve roots are unremarkable. Noabnormal enhancement is present within the conus or along the cauda equina.The background marrow signal is unremarkable. Hyperintense STIR signal andenhancement are noted about the left L4-L5 and bilateral L5-S1 facets. Theintervertebral disc space heights are preserved.L1-L2: No significant spinal canal stenosis or neural foraminal narrowingL2-L3: No significant spinal canal stenosis or neural foraminal narrowingL3-L4: No significant spinal canal stenosis or neural foraminal narrowingL4-L5: Mild facet arthropathy and ligamen franca flavum thickening result in nosignificant spinal canal stenosis or neural foraminal narrowing. An annularfissure is present in the left posterior lateral aspect of the disc.L5-S1: Mild facet arthropathy results in no significant spinal canalstenosis or neural foraminal narrowingMild hyperintense STIR signal and enhancement is also noted in theparaspinalis muscles in the mid and lower lumbar spine.IMPRESSIONNo significant spinal canal stenosis or neural foraminal narrowing ispresent at any cervical, thoracic or lumbar level. No cord signalabnormality or enhancement is present.Overall mild degenerative changes are present. Minimal spondylolisthesis atL4-L5 and L5-S1 is associated with moderate facet arthropathy at theselevels with reactive, inflammatory edema involving the facets, morepronounced on the left.Nonspecific mild intramuscular edema in the mid and lower paraspinalismuscles.[facility] THORACIC SPINE W WO [id number] 13:32:43 No significant spinal canal stenosis or neural foraminal narrowing ispresent at any cervical, thoracic or lumbar level. No cord signalabnormality or enhancement is present. Overall mild degenerative changes are present. Minimal spondylolisthesis atL4-L5 and L5- S1 is associated with moderate facet arthropathy at theselevels with reactive, inflammatory edema involving the facets, morepronounced on theleft. Nonspecific mild intramuscular edema in the mid and lower paraspinalismuscles.* * * * * * * * ORIGINAL REPORT * * * * * * * *MR THORACIC SPINE W WO CONTRAST, MR CERVICAL SPINE W WO CONTRAST, MR LUMBAR SPINE W WO CONTRAST HISTORY: Female 68 years b/l leg weakness COMPARISON: None TECHNIQUE: Multiplanar multi weighted imaging of the cervical, thoracic andlumbar spine were obtained before and following the administration of 12 mLIV Dotarem MRI CERVICAL SPINE: The vertebral bodies are normal in height and in normal alignment. Thecervical cord is normal in caliber and demonstrates normal signalintensity. No focus of abnormal cord enhancement is present. The background marrow signal is unremarkable. A vertebral body hemangiomais present in the anterior aspect of the C5 vertebra. The intervertebraldisc space heights are preserved. C2-C3: No significant spinal canal stenosis or neural foraminal narrowing C3-C4: No significant spinal canal stenosis or neural foraminal narrowing C4-C5: No significant spinal canal stenosis or neural foraminal narrowing C5-C6: A shallow posterior disc osteophyte complex and uncinate hypertrophyresult in minimal spinal canal stenosis and mild right neural foraminalnarrowing C6-C7: No significant spinal canal stenosis or neural foraminal narrowing C7-T1: No significant spinal canal stenosis or neural foraminal narrowing MRI THORACIC SPINE: The vertebral bodies are normal in height and in normal alignment. Thethoracic cord is normal in caliber and demonstrates normal signalintensity. No focus of abnormal cord enhancement is present. The background marrow signal isunremarkable. The intervertebral disc spaceheights are relatively preserved. Scattered small Schmorl's nodes arenoted. Small disc protrusions are noted at the T3-T4, T7-T8 and T11-T12 levelsresulting in no more than minimal central canal narrowing. No high-gradeneural foraminal narrowing is present atany level. MRI LUMBAR SPINE: Minimal anterolisthesis of L4 on L5 and L5 on S1. The vertebral bodies arenormal in height and in otherwise normal alignment. The conus terminates atthe level of T12. The cauda equina nerve roots are unremarkable. Noabnormal enhancement is present within the conus or alongthe cauda equina. The background marrow signal is unremarkable. Hyperintense STIR signal andenhancement are noted about the left L4-L5 and bilateral L5-S1 facets. Theintervertebral disc space heights are preserved. L1-L2: No significant spinal canal stenosis or neural foraminal narrowing L2-L3: No significant spinal canal stenosis or neural foraminal narrowing L3-L4: No significant spinal canal stenosis or neural foraminal narrowing L4-L5: Mild facet arthropathy and ligamentum flavum thickening result in nosignificant spinal canal stenosis or neural foraminal narrowing. An annularfissure is presentin the left posterior lateral aspect of the disc. L5- S1: Mild facet arthropathy results in no significant spinal canalstenosis or neural foraminal narrowing Mild hyperintense STIR signal and enhancement is also noted in theparaspinalis muscles in the mid and lower lumbar spine. [facility], Radiant Results Inft User - 12/27/2018 8:34 AM CDT* * * * * * * * ORIGINAL REPORT * * * * * * * *MR THORACIC SPINE W WO CONTRAST, MR CERVICAL SPINE W WO CONTRAST, MR LUMBAR SPINE W WO CONTRASTHISTORY: Female 68 years b/l leg weakness COMPARISON: NoneTECHNIQUE: Multiplanar multi weighted imaging of the cervical, thoracic andlumbar spine were obtained before and following the administration of 12 mLIV DotaremMRI CERVICAL SPINE:The vertebral bodies are normal in height and in normal alignment. Thecervical cord is normalin caliber and demonstrates normal signalintensity. No focus of abnormal cord enhancement is present.The background marrow signal is unremarkable. A vertebral body hemangiomais present in the anterior aspect of the C5 vertebra. The intervertebraldisc space heights are preserved.C2-C3: No significant spinal canal stenosis or neural foraminal narrowingC3-C4: No significant spinal canal stenosis or neural foraminal narrowingC4-C5: No significant spinal canal stenosis or neural foraminal narrowingC5-C6:A shallow posterior disc osteophyte complex and uncinate hypertrophyresult in minimal spinal canal stenosis and mild right neural foraminalnarrowingC6-C7: No significant spinal canal stenosis or neuralforaminal narrowingC7-T1: No significant spinal canal stenosis or neural foraminal narrowingMRI THORACIC SPINE:The vertebral bodies are normal in height and in normal alignment. Thethoracic cord is normal in caliber and demonstrates normal signalintensity. No focus of abnormal cord enhancement is present.The background marrow signal is unremarkable. The intervertebral disc spaceheights are relativelypreserved. Scattered small Schmorl's nodes arenoted.Small disc protrusions are noted at the T3-T4, T7-T8 and T11-T12 levelsresulting in no more than minimal central canal narrowing. No high-gradeneuralforaminal narrowing is present at any level.MRI LUMBAR SPINE:Minimal anterolisthesis of L4 on L5 andL5 on S1. The vertebral bodies arenormal in height and in otherwise normal alignment. The conus terminates atthe level of T12. The cauda equina nerve roots are unremarkable. Noabnormal enhancement is present within the conus or along the cauda equina.The background marrow signal is unremarkable. Hyperintense STIR signal andenhancement are noted about the left L4-L5 and bilateral L5-S1 facets. Theintervertebral disc space heights are preserved.L1-L2: No significant spinal canal stenosis or neural foraminal narrowingL2-L3: No significant spinal canal stenosis or neural foraminal narrowingL3-L4: No significant spinal canal stenosis or neural foraminal narrowingL4-L5: Mild facet arthropathy and ligamen franca flavum thickening result in nosignificant spinal canal stenosis or neural foraminal narrowing. An annularfissure is present in the left posterior lateral aspect of the disc.L5-S1: Mild facet arthropathy results in no significant spinal canalstenosis or neural foraminal narrowingMild hyperintense STIR signal and enhancement is also noted in theparaspinalis muscles in the mid and lower lumbar spine.IMPRESSIONNo significant spinal canal stenosis or neural foraminal narrowing ispresent at any cervical, thoracic or lumbar level. No cord signalabnormality or enhancement is present.Overall mild degenerative changes are present. Minimal spondylolisthesis atL4-L5 and L5-S1 is associated with moderate facet arthropathy at theselevels with reactive, inflammatory edema involving the facets, morepronounced on the left.Nonspecific mild intramuscular edema in the mid and lower paraspinalismuscles.[facility] CERVICAL SPINE W WO [id number] 13:32:43 No significant spinal canal stenosis or neural foraminal narrowing ispresent at any cervical, thoracic or lumbar level. No cord signalabnormality or enhancement is present. Overall mild degenerative changes are present. Minimal spondylolisthesis atL4-L5 and L5- S1 is associated with moderate facet arthropathy at theselevels with reactive, inflammatory edema involving the facets, morepronounced on theleft. Nonspecific mild intramuscular edema in the mid and lower paraspinalismuscles.* * * * * * * * ORIGINAL REPORT * * * * * * * *MR THORACIC SPINE W WO CONTRAST, MR CERVICAL SPINE W WO CONTRAST, MR LUMBAR SPINE W WO CONTRAST HISTORY: Female 68 years b/l leg weakness COMPARISON: None TECHNIQUE: Multiplanar multi weighted imaging of the cervical, thoracic andlumbar spine were obtained before and following the administration of 12 mLIV Dotarem MRI CERVICAL SPINE: The vertebral bodies are normal in height and in normal alignment. Thecervical cord is normal in caliber and demonstrates normal signalintensity. No focus of abnormal cord enhancement is present. The background marrow signal is unremarkable. A vertebral body hemangiomais present in the anterior aspect of the C5 vertebra. The intervertebraldisc space heights are preserved. C2-C3: No significant spinal canal stenosis or neural foraminal narrowing C3-C4: No significant spinal canal stenosis or neural foraminal narrowing C4-C5: No significant spinal canal stenosis or neural foraminal narrowing C5-C6: A shallow posterior disc osteophyte complex and uncinate hypertrophyresult in minimal spinal canal stenosis and mild right neural foraminalnarrowing C6-C7: No significant spinal canal stenosis or neural foraminal narrowing C7-T1: No significant spinal canal stenosis or neural foraminal narrowing MRI THORACIC SPINE: The vertebral bodies are normal in height and in normal alignment. Thethoracic cord is normal in caliber and demonstrates normal signalintensity. No focus of abnormal cord enhancement is present. The background marrow signal isunremarkable. The intervertebral disc spaceheights are relatively preserved. Scattered small Schmorl's nodes arenoted. Small disc protrusions are noted at the T3-T4, T7-T8 and T11-T12 levelsresulting in no more than minimal central canal narrowing. No high-gradeneural foraminal narrowing is present atany level. MRI LUMBAR SPINE: Minimal anterolisthesis of L4 on L5 and L5 on S1. The vertebral bodies arenormal in height and in otherwise normal alignment. The conus terminates atthe level of T12. The cauda equina nerve roots are unremarkable. Noabnormal enhancement is present within the conus or alongthe cauda equina. The background marrow signal is unremarkable. Hyperintense STIR signal andenhancement are noted about the left L4-L5 and bilateral L5-S1 facets. Theintervertebral disc space heights are preserved. L1-L2: No significant spinal canal stenosis or neural foraminal narrowing L2-L3: No significant spinal canal stenosis or neural foraminal narrowing L3-L4: No significant spinal canal stenosis or neural foraminal narrowing L4-L5: Mild facet arthropathy and ligamentum flavum thickening result in nosignificant spinal canal stenosis or neural foraminal narrowing. An annularfissure is presentin the left posterior lateral aspect of the disc. L5- S1: Mild facet arthropathy results in no significant spinal canalstenosis or neural foraminal narrowing Mild hyperintense STIR signal and enhancement is also noted in theparaspinalis muscles in the mid and lower lumbar spine. [facility], Radiant Results Inft User - 12/27/2018 8:34 AM CDT* * * * * * * * ORIGINAL REPORT * * * * * * * *MR THORACIC SPINE W WO CONTRAST, MR CERVICAL SPINE W WO CONTRAST, MR LUMBAR SPINE W WO CONTRASTHISTORY: Female 68 years b/l leg weakness COMPARISON: NoneTECHNIQUE: Multiplanar multi weighted imaging of the cervical, thoracic andlumbar spine were obtained before and following the administration of 12 mLIV DotaremMRI CERVICAL SPINE:The vertebral bodies are normal in height and in normal alignment. Thecervical cord is normalin caliber and demonstrates normal signalintensity. No focus of abnormal cord enhancement is present.The background marrow signal is unremarkable. A vertebral body hemangiomais present in the anterior aspect of the C5 vertebra. The intervertebraldisc space heights are preserved.C2-C3: No significant spinal canal stenosis or neural foraminal narrowingC3-C4: No significant spinal canal stenosis or neural foraminal narrowingC4-C5: No significant spinal canal stenosis or neural foraminal narrowingC5-C6:A shallow posterior disc osteophyte complex and uncinate hypertrophyresult in minimal spinal canal stenosis and mild right neural foraminalnarrowingC6-C7: No significant spinal canal stenosis or neuralforaminal narrowingC7-T1: No significant spinal canal stenosis or neural foraminal narrowingMRI THORACIC SPINE:The vertebral bodies are normal in height and in normal alignment. Thethoracic cord is normal in caliber and demonstrates normal signalintensity. No focus of abnormal cord enhancement is present.The background marrow signal is unremarkable. The intervertebral disc spaceheights are relativelypreserved. Scattered small Schmorl's nodes arenoted.Small disc protrusions are noted at the T3-T4, T7-T8 and T11-T12 levelsresulting in no more than minimal central canal narrowing. No high-gradeneuralforaminal narrowing is present at any level.MRI LUMBAR SPINE:Minimal anterolisthesis of L4 on L5 andL5 on S1. The vertebral bodies arenormal in height and in otherwise normal alignment. The conus terminates atthe level of T12. The cauda equina nerve roots are unremarkable. Noabnormal enhancement is present within the conus or along the cauda equina.The background marrow signal is unremarkable. Hyperintense STIR signal andenhancement are noted about the left L4-L5 and bilateral L5-S1 facets. Theintervertebral disc space heights are preserved.L1-L2: No significant spinal canal stenosis or neural foraminal narrowingL2-L3: No significant spinal canal stenosis or neural foraminal narrowingL3-L4: No significant spinal canal stenosis or neural foraminal narrowingL4-L5: Mild facet arthropathy and ligamen franca flavum thickening result in nosignificant spinal canal stenosis or neural foraminal narrowing. An annularfissure is present in the left posterior lateral aspect of the disc.L5-S1: Mild facet arthropathy results in no significant spinal canalstenosis or neural foraminal narrowingMild hyperintense STIR signal and enhancement is also noted in theparaspinalis muscles in the mid and lower lumbar spine.IMPRESSIONNo significant spinal canal stenosis or neural foraminal narrowing ispresent at any cervical, thoracic or lumbar level. No cord signalabnormality or enhancement is present.Overall mild degenerative changes are present. Minimal spondylolisthesis atL4-L5 and L5-S1 is associated with moderate facet arthropathy at theselevels with reactive, inflammatory edema involving the facets, morepronounced on the left.Nonspecific mild intramuscular edema in the mid and lower paraspinalismuscles.[facility] GLUCOSE (AUTOMATED)2018-12-27 01:15:00 Test Item Value Reference Range Interpretation Comments POCT GLU (test code = 6499087044) 179 mg/dL 70-110 H Lab Interpretation (test code = Abnormal 17574-7) [facility] GLUCOSE (AUTOMATED)2018-12-26 21:56:00 Test Item Value Reference Range Interpretation Comments POCT GLU (test code = 5442342550) 101 mg/dL 70-110 Lab Interpretation (test code = Normal 75822-4) [facility] GLUCOSE (AUTOMATED)2018-12-26 16:57:00 Test Item Value Reference Range Interpretation Comments POCT GLU (test code = 2802352265) 138 mg/dL 70-110 H Lab Interpretation (test code = Abnormal 66598-4) [facility] GLUCOSE (AUTOMATED)2018-12-26 13:24:00 Test Item Value Reference Range Interpretation Comments POCT GLU (test code = 2632757690) 124 mg/dL 70-110 H Lab Interpretation (test code = Abnormal 29347-9) [facility]2018-12-26 12:51:00 Test Item Value Reference Range Interpretation Comments HGB A1C (test code = 4548-4) 5.9 % 4-6 Lab Interpretation (test code = Normal 46059-6) [facility]NA, K, CL, CO2, GLUCOSE, BUN, CREATININE, CA)2018-12-26 12:32:00 Test Item Value Reference Range Interpretation Comments NA (test code = 142 mmol/L 135-145 9147015520) K (test code = 4.6 mmol/L 3.5-5 Slight 6786772142) hemolysis CL (test code = 110 mmol/L 98-108 H 3044519239) CO2 TOTAL (test code 27 mmol/L 23-31 = 1660322367) AGAP (test code = 2-16 9335735378) BUN (test code = 10 mg/dL 7-23 Slight 5303817709) hemolysis GLUCOSE (test code = 128 mg/dL 70-110 H 4143552360) CREATININE (test code 0.68 mg/dL 0.5-1.04 = 1178246396) CALCIUM (test code = 9.2 mg/dL 8.6-10.6 1663932831) eGFR Calculation mL/min/1.73m2 (Non-) (test code = 9476670506) eGFR Calculation mL/min/1.73m2 () (test code = 5519118660) BIB (test code = BIB) Association of Glomerular Filtration Rate (GFR) and Staging of Kidney Disease*+ +----- +-- ----+| GFR (mL/min/1.73 m2)?| With Kidney Damage?|?Without Kidney Damage+ +------- +---- --+|?>90?|?Stage one?|? Normal?+ +------ +--- ---+|?60-89?|?Stage two?|? Decreased GFR? + -----+ --------+ +|?3 0-59?|?Stage three?|? Stage three? + -----+ --------+ +|?1 5-29??|?Stage four? |? Stage four?+ +-------- +----- -+|?<15 (or dialysis)?|?Stage five? |? Stage five?+ +-------- +----- -+*Each stage assumes the associated GFR level has been in effect for at least three months.?Stages 1 to 5, with or without kidney disease, indicate chronic kidney disease.Notes: Determination of stages one and two (with eGFR >59mL/min/1.73 m2) requires estimation of kidney damage for at least three months as defined by structural or functional abnormalities of the kidney, manifested by either:Pathological abnormalities or Markers of kidney damage (including abnormalities in the composition of the blood or urine or abnormalities in imaging tests). Lab Interpretation Abnormal (test code = 00385-0) [facility]) (ALB,T.PRO,BILI T,BU/BC,ALT,AST,ALK PHOS)2018-12-26 12:32:00 Test Item Value Reference Range Interpretation Comments TOTAL BILI (test code = 5473847420) 0.9 mg/dL 0.1-1.1 BILI UNCON (test code = 9654271380) 0.6 mg/dL 0.1-1.1 BILI CONJ (test code = 4873294992) 0.0 mg/dL 0-0.3 T PROTEIN (test code = 2303045405) 6.5 g/dL 6.3-8.2 ALBUMIN (test code = 1756675175) 3.7 g/dL 3.5-5 ALK PHOS (test code = 6464987969) 41 U/L 34-122 ALT(SGPT) (test code = 0763451258) 27 U/L 9-51 AST(SGOT) (test code = 2624851807) 36 U/L 13-40 Lab Interpretation (test code = Normal 06389-3) [facility] 12:32:00 Test Item Value Reference Range Interpretation Comments MAGNESIUM (test code = 3724922860) 2.0 mg/dL 1.7-2.4 Lab Interpretation (test code = Normal 23286-2) [facility]2019-08-22 08:30:00 Test Item Value Reference Range Interpretation Comments FOLATE SER (test code = 2419384566) >20.0 3-20 H Lab Interpretation (test code = Abnormal 16046-4) [facility] CenterVIT[facility]IN B12, [id number] 08:17:00 Test Item Value Reference Range Interpretation Comments VIT B12 (test code = 632 pg/mL 240-930 6319543834) BIB (test code = BIB) Biotin has been reported to cause a positive bias, interpret results relative to patient's use of biotin. Lab Interpretation (test Normal code = 43838-6) [facility] CenterTHYROID STIMULATING [id number] 07:43:00 Test Item Value Reference Range Interpretation Comments TSH (test code = See_Comment [Automated message] 0322937463) The system [employer] [facility] generated this result transmitted ref erence range: 0.45 - 4 .70 mIU/L. The refe rence range was not u sed to interpret this result as normal/abnor mal. Lab Interpretation (test Normal code = 79712-8) [facility] CenterGlycosylated Hemoglobin (A1C)2018-12-26 07:24:00 Test Item Value Reference Range Interpretation Comments HGB A1C (test code = 4548-4) 5.9 % 4-6 Lab Interpretation (test code = Normal 75581-5) [facility] CenterCREATINE [id number] 07:09:00 Test Item Value Reference Range Interpretation Comments CK (test code = 0853746710) 58 U/L 33-194 Lab Interpretation (test code = Normal 42840-7) [facility] CenterUrinalysis2019-08-22 07:07:00 Test Item Value Reference Range Interpretation Comments APPEARANCE (test code = Clear Clear 9917186394) COLOR (test code = Straw Yellow A 8768728776) PH (test code = 4.8-8.0 1963043578) SP GRAVITY (test code = 1.003-1.030 0402557658) GLU U QUAL (test code = Normal Normal 8387277904) BLOOD (test code = Negative Negative 3008852112) KETONES (test code = Negative Negative 4276634056) PROTEIN (test code = Negative Negative 2887-8) UROBILIN (test code = Normal Normal 3044449877) BILIRUBIN (test code = Negative Negative 6126906501) NITRITE (test code = Negative Negative 7616770385) LEUK SHRADDHA (test code = 75/uL Negative A 2901008676) RBC/HPF (test code = See_Comment [Autom ated message] 4237868983) The system [facility] generated this result transmitted ref erence range: 0 - 3 HP F. The reference range was not used to int erpret this result as normal/abnormal . WBC/HPF (test code = See_Comment H [Autom ated message] 2298991095) The system [facility] [facility] generated this result transmitted ref erence range: 0 - 5 HP F. The reference range was not used to int erpret this result as normal/abnormal . BACTERIA (test code = Few Negative A 3393353065) SQ EPITH (test code = See_Comment [Auto mated message] 7792677449) The system [facility] generated this result transmitted ref erence range: <=2 HPF. The reference range was not used to int erpret this result as normal/abnormal . Lab Interpretation (test Abnormal code = 99029-3) [facility] CenterCB WITH [id number] 07:00:00 Test Item Value Reference Range Interpretation Comments WBC (test code = See_Comment [Automated 6690-2) message] The sy stem which generated this result transmitted reference range : 4.30 - 11.10 10*3/?L. The reference range was not used to interpret this result as normal/abnormal . RBC (test code = See_Comment L [Automated 789-8) message] The sy stem which generated this result transmitted reference range : 3.93 - 5.25 10*6/?L. The reference range was not used to interpret this result as normal/abnormal . HGB (test code = 9.6 g/dL 11.6-15 L 718-7) HCT (test code = 28.5 % 35.7-45.2 L 4544-3) MCV (test code = 90.8 fL 80.6-95.5 787-2) MCH (test code = 30.6 pg 25.9-32.8 785-6) MCHC (test code = 33.7 g/dL 31.6-35.1 786-4) RDW-SD (test code = 44.7 fL 39-49.9 32390-1) RDW-CV (test code = 13.4 % 12-15.5 788-0) PLT (test code = See_Comment [Automated 777-3) message] The sy stem which generated this result transmitted reference range : 166 - 358 10*3/ ?L. The reference r alyssa was not used to interpret this result as normal/abnormal . MPV (test code = 9.7 fL 9.5-12.9 58501-4) NRBC/100 WBC (test See_Comment [Automat ed code = 1697900360) message] The system which generated this result transmitted reference range : 0.0 - 10.0 /100 WBCs. The refer ence range was not u sed to interpret th is result as normal/abnormal . NRBC x10^3 (test code <0.01 See_Comment [Auto mated = 7637041273) message] The s ystem which generated this result transmitted reference range : 10*3/?L. The reference range was not used to interpret this result as normal/abnormal . GRAN MAT (NEUT) % 61.8 % (test code = 770-8) IMM GRAN % (test code 0.50 % = 2861179657) LYMPH % (test code = 28.1 % 736-9) MONO % (test code = 7.1 % 5905-5) EOS % (test code = 1.7 % 713-8) BASO % (test code = 0.8 % 706-2) GRAN MAT x10^3(ANC) 4.09 10*3/uL 1.88-7.09 (test code = 1760130286) IMM GRAN x10^3 (test 0.03 10*3/uL 0-0.06 code = 9787494250) LYMPH x10^3 (test code 1.86 10*3/uL 1.32-3.29 = 731-0) MONO x10^3 (test code 0.47 10*3/uL 0.33-0.92 = 742-7) EOS x10^3 (test code = 0.11 10*3/uL 0.03-0.39 711-2) BASO x10^3 (test code 0.05 10*3/uL 0.01-0.07 = 704-7) Lab Interpretation Abnormal (test code = 80850-5) [facility] CenterLipid Panel (Total Cholesterol, Triglycerides, HDL) - [id number] 03:38:00 Test Item Value Reference Range Interpretation Comments CHOL (test code = 138 mg/dL 120-200 9355244019) HDL (test code = 39 mg/dL >50 L 2435532401) HDLC RATIO (test code = See_Comment [Au tomated message] 5048512019) The system [facility] [employer] [facility] generated this result transmit [place] reference range : <=4.5. The refe rence range was not u sed to interpret th is result as normal/abnormal . TRIG (test code = 196 mg/dL 30-170 H 2609749751) LDL CHOL (test code = 60 mg/dL See_Comment [Auto mated message] 32622-8) The system [facility] generated this result transmit [place] reference range : <=160. The refe rence range was not u sed to interpret th is result as normal/abnormal . VLDL (test code = 39 mg/dL 5-60 4300555335) Lab Interpretation (test Abnormal code = 66471-7) [facility] (NA, K, CL, CO2, GLUCOSE, BUN, CREATININE, CA)2018-12-26 03:38:00 Test Item Value Reference Range Interpretation Comments NA (test code = 138 mmol/L 135-145 1855804525) K (test code = 3.1 mmol/L 3.5-5 L 3423800269) CL (test code = 104 mmol/L 98-108 9652474235) CO2 TOTAL (test code = 25 mmol/L 23-31 1124793926) AGAP (test code = 2-16 0974572750) BUN (test code = 13 mg/dL 7-23 1394068351) GLUCOSE (test code = 110 mg/dL 70-110 1127115740) CREATININE (test code = 0.82 mg/dL 0.5-1.04 5948335935) CALCIUM (test code = 9.6 mg/dL 8.6-10.6 6948325877) eGFR Calculation mL/min/1.73m2 (Non-) (test code = 0336776845) eGFR Calculation mL/min/1.73m2 () (test code = 9198463080) BIB (test code = BIB) Association of Glomerular Filtration Rate (GFR) and Staging of Kidney Disease*+ + + +| GFR (mL/min/1.73 m2)?| With Kidney Damage?|?Without Kidney Damage+ --------+ --------+ +|?>90?|?S tage one?|? Normal?+ ---------+ ---------+ +|?60-89? |?Stage two?|? Decreased GFR? + --+ --+ ------+|?30-59?|?Stage three?|? Stage three? + --+ --+ ------+|?15-29?|?Stage four? |? Stage four?+ -------+ -------+ +|?<15 (or dialysis)?|?Stage five? |? Stage five?+ -------+ -------+ +*Each stage assumes the associated GFR level has been in effect for at least three months.?Stages 1 to 5, with or without kidney disease, indicate chronic kidney disease.Notes: Determination of stages one and two (with eGFR >59mL/min/1.73 m2) requires estimation of kidney damage for at least three months as defined by structural or functional abnormalities of the kidney, manifested by either:Pathological abnormalities or Markers of kidney damage (including abnormalities in the composition of the blood or urine or abnormalities in imaging tests). Lab Interpretation Abnormal (test code = 11286-3) [facility] CenterHEPATIC FUNCTION PANEL (29729) (ALB,T.PRO,BILI T,BU/BC,ALT,AST,ALK PHOS)2018-12-26 03:38:00 Test Item Value Reference Range Interpretation Comments TOTAL BILI (test code = 3730722981) 0.8 mg/dL 0.1-1.1 BILI UNCON (test code = 8261080578) 0.5 mg/dL 0.1-1.1 BILI CONJ (test code = 5065203767) 0.0 mg/dL 0-0.3 T PROTEIN (test code = 0812485736) 7.1 g/dL 6.3-8.2 ALBUMIN (test code = 3941012171) 4.3 g/dL 3.5-5 ALK PHOS (test code = 1029129340) 68 U/L 34-122 ALT(SGPT) (test code = 1401447578) 25 U/L 9-51 AST(SGOT) (test code = 6091485035) 39 U/L 13-40 Lab Interpretation (test code = Normal 95562-9) [facility] CenterMagnesium [id number] 03:38:00 Test Item Value Reference Range Interpretation Comments MAGNESIUM (test code = 4167246314) 2.1 mg/dL 1.7-2.4 Lab Interpretation (test code = Normal 41496-0) [facility] CenterPhosphorus [id number] 03:38:00 Test Item Value Reference Range Interpretation Comments PHOSPHORUS (test code = 2277959812) 3.6 mg/dL 2.5-5 Lab Interpretation (test code = Normal 35257-8) [facility]CB WITH [id number] 03:07:00 Test Item Value Reference Range Interpretation Comments WBC (test code = See_Comment [Automated 8990-2) message] The sy stem which generated this result transmitted reference range : 4.30 - 11.10 10*3/?L. The reference range was not used to interpret this result as normal/abnormal . RBC (test code = See_Comment L [Automated 582-8) message] The sy stem which generated this result transmitted reference range : 3.93 - 5.25 10*6/?L. The reference range was not used to interpret this result as normal/abnormal . HGB (test code = 9.4 g/dL 11.6-15 L 718-7) HCT (test code = 28.9 % 35.7-45.2 L 4544-3) MCV (test code = 92.0 fL 80.6-95.5 787-2) MCH (test code = 29.9 pg 25.9-32.8 785-6) MCHC (test code = 32.5 g/dL 31.6-35.1 786-4) RDW-SD (test code = 44.5 fL 39-49.9 79328-6) RDW-CV (test code = 13.4 % 12-15.5 788-0) PLT (test code = See_Comment [Automated 777-3) message] The sy stem which generated this result transmitted reference range : 166 - 358 10*3/ ?L. The reference r alyssa was not used to interpret this result as normal/abnormal . MPV (test code = 9.2 fL 9.5-12.9 L 13382-4) NRBC/100 WBC (test See_Comment [Automat ed code = 7242187263) message] The system which generated this result transmitted reference range : 0.0 - 10.0 /100 WBCs. The refer ence range was not u sed to interpret th is result as normal/abnormal . NRBC x10^3 (test code <0.01 See_Comment [Auto mated = 0467356669) message] The s ystem which generated this result transmitted reference range : 10*3/?L. The reference range was not used to interpret this result as normal/abnormal . GRAN MAT (NEUT) % 61.8 % (test code = 770-8) IMM GRAN % (test code 0.30 % = 0282556852) LYMPH % (test code = 28.1 % 736-9) MONO % (test code = 7.3 % 5905-5) EOS % (test code = 1.7 % 713-8) BASO % (test code = 0.8 % 706-2) GRAN MAT x10^3(ANC) 4.09 10*3/uL 1.88-7.09 (test code = 3838117978) IMM GRAN x10^3 (test <0.03 0-0.06 code = 9240092306) LYMPH x10^3 (test code 1.86 10*3/uL 1.32-3.29 = 731-0) MONO x10^3 (test code 0.48 10*3/uL 0.33-0.92 = 742-7) EOS x10^3 (test code = 0.11 10*3/uL 0.03-0.39 711-2) BASO x10^3 (test code 0.05 10*3/uL 0.01-0.07 = 704-7) Lab Interpretation Abnormal (test code = 88062-1) [facility] CenterPOCT GLUCOSE (AUTOMATED)2018-12-26 02:25:00 Test Item Value Reference Range Interpretation Comments POCT GLU (test code = 0620852080) 116 mg/dL 70-110 H Lab Interpretation (test code = Abnormal 65552-7) [facility] CenterURINE IMMUNOFIXATION, [id number] 09:34:00 Test Item Value Reference Range Interpretation Comments PROTEIN, URINE 66 mg/dL 0-14 H (BEAKER) (test code = 1569) ALBUMIN URINE ELP 38.9 % (BEAKER) (test code = 1018) GAMMA GLOBULIN URINE 61.1 % (BEAKER) (test code = 1015) URINE MARKEL ID-[id number] Non-specific band (BEAKER) (test code identified. No evidence = 2602) of IGG, IGM, or IGA immunoglobulin with light chain restriction. Clinical correlation is recommended. [id number] Aaron Hopper MD (electronic (BEAKER) (test code signature) = 2603) POCT-GLUCOSE [id number] 12:36:00 Test Item Value Reference Range Interpretation Comments POC-GLUCOSE METER 178 mg/dL 70-110 H TESTED AT [facility] (BEAKER) (test code = [facility] 1538) [address] POCT-GLUCOSE [id number] 08:06:00 Test Item Value Reference Range Interpretation Comments POC-GLUCOSE METER 145 mg/dL 70-110 H TESTED AT [facility] 67[facility] (BEAKER) (test code = [facility] 1538) [address] BASIC METABOLIC [id number] 07:28:00 Test Item Value Reference Range Interpretation [...] S NOT APPLICABLE FOR DIALYSIS PATIEN TS. [id number] 07:14:00 Test Item Value Reference Range Interpretation Comments PHOSPHORUS (BEAKER) (test code = 3.4 mg/dL 2.3-4.7 604) [id number] 07:14:00 Test Item Value Reference Range Interpretation Comments MAGNESIUM (BEAKER) (test code = 1.8 mg/dL 1.6-2.6 627) [id number] 06:41:00 Test Item Value Reference Range Interpretation Comments PARTIAL THROMBOPLASTIN TIME 27.7 seconds 22.5-36.0 (BEAKER) (test code = 760) CBC W/PLT COUNT & AUTO [id number] 06:30:00 Test Item Value Reference Range Interpretation [...] PERCENT (BEAKER) (test code = 2801) POCT-GLUCOSE [id number] 21:51:00 Test Item Value Reference Range Interpretation Comments POC-GLUCOSE METER 142 mg/dL 70-110 H TESTED AT [place] [address] ([facility]) (test code = [facility] 1538) [address] POCT-GLUCOSE [id number] 18:00:00 Test Item Value Reference Range Interpretation Comments POC-GLUCOSE METER 139 mg/dL 70-110 H TESTED AT [place] [address] ([facility]) (test code = [facility] 1538) [address] POCT-GLUCOSE [id number] 13:00:00 Test Item Value Reference Range Interpretation Comments POC-GLUCOSE METER 166 mg/dL 70-110 H TESTED AT [place] [address] ([facility]) (test code = [facility] 1538) [address] POCT-GLUCOSE [id number] 09:00:00 Test Item Value Reference Range Interpretation Comments POC-GLUCOSE METER 151 mg/dL 70-110 H TESTED AT [facility] 67[address] (BEAKER) (test code = DOMINIQUE [place] 1538) [address] COMPREHENSIVE METABOLIC [id number] 06:08:00 Test Item Value Reference Range Interpretation [...] S NOT APPLICABLE FOR DIALYSIS PATIEN TS. [id number] 06:03:00 Test Item Value Reference Range Interpretation Comments PHOSPHORUS (BEAKER) (test code = 3.1 mg/dL 2.3-4.7 604) [id number] 06:03:00 Test Item Value Reference Range Interpretation Comments MAGNESIUM (BEAKER) (test code = 1.9 mg/dL 1.6-2.6 627) [id number] 05:01:00 Test Item Value Reference Range Interpretation Comments PARTIAL THROMBOPLASTIN TIME 82.6 seconds 22.5-36.0 H (BEAKER) (test code = 760) CALCIUM, [id number] 04:52:00 Test Item Value Reference Range Interpretation Comments CALCIUM IONIZED (BEAKER) (test 1.17 mmol/L 1.12-1.27 code = 698) PH, BLOOD (BEAKER) (test code = 7.43 1810) CBC W/PLT COUNT & AUTO [id number] 04:46:00 Test Item Value Reference Range Interpretation [...] PERCENT (BEAKER) (test code = 2801) POCT-GLUCOSE [id number] 21:21:00 Test Item Value Reference Range Interpretation Comments POC-GLUCOSE METER 134 mg/dL 70-110 H TESTED AT [facility] 67[address] (BEAKER) (test code = [place] 1538) [address] BASIC METABOLIC [id number] 18:26:00 Test Item Value Reference Range Interpretation [...] NOT APPLICABLE FOR DIALYSIS PATIEN TS. POCT-GLUCOSE [id number] 18:21:00 Test Item Value Reference Range Interpretation Comments POC-GLUCOSE METER 164 mg/dL 70-110 H TESTED AT [facility] 67[address] (BEAKER) (test code = DOMINIQUE [place] 1538) [address] POCT-GLUCOSE [id number] 11:12:00 Test Item Value Reference Range Interpretation Comments POC-GLUCOSE METER 160 mg/dL 70-110 H TESTED AT [facility] 67[address] (BEAKER) (test code = DOM[place]IQUE [place] 1538) [address] COMPREHENSIVE METABOLIC [id number] 05:14:00 Test Item Value Reference Range Interpretation [...] S NOT APPLICABLE FOR DIALYSIS PATIEN TS. [id number] 05:12:00 Test Item Value Reference Range Interpretation Comments PHOSPHORUS (BEAKER) (test code = 2.7 mg/dL 2.3-4.7 604) [id number] 05:12:00 Test Item Value Reference Range Interpretation Comments MAGNESIUM (BEAKER) (test code = 2.0 mg/dL 1.6-2.6 627) [id number] 05:05:00 Test Item Value Reference Range Interpretation Comments PARTIAL THROMBOPLASTIN TIME 78.0 seconds 22.5-36.0 H (BEAKER) (test code = 760) CALCIUM, [id number] 04:53:00 Test Item Value Reference Range Interpretation Comments CALCIUM IONIZED (BEAKER) (test 1.18 mmol/L 1.12-1.27 code = 698) PH, BLOOD (BEAKER) (test code = 7.41 1810) CBC W/PLT COUNT & AUTO [id number] 04:44:00 Test Item Value Reference Range Interpretation [...] PERCENT (BEAKER) (test code = 2801) POCT-GLUCOSE [id number] 21:33:00 Test Item Value Reference Range Interpretation Comments POC-GLUCOSE METER 138 mg/dL 70-110 H TESTED AT [facility] 67[address] (BEAKER) (test code = DOM[place]IQUE [place] 1538) [address] BASIC METABOLIC [id number] 18:05:00 Test Item Value Reference Range Interpretation Comments SODIUM (BEAKER) 136 meq/L 136-145 (test code = 381) POTASSIUM (BEAKER) 3.7 meq/L 3.5-5.1 (test code = 379) CHLORIDE (BEAKER) 103 meq/L 98-107 (test code = 382) CO2 (BEAKER) (test 25 meq/L 22-29 code = 355) BLOOD UREA NITROGEN 36 [...] I S NOT APPLICABLE FOR DIALYSIS PATIEN [id number] 13:04:00 Test Item Value Reference Range Interpretation Comments PARTIAL THROMBOPLASTIN TIME 71.7 seconds 22.5-36.0 H (BEAKER) (test code = 760) POCT-GLUCOSE [id number] 12:11:00 Test Item Value Reference Range Interpretation Comments POC-GLUCOSE METER 158 mg/dL 70-110 H TESTED AT [facility] 6720 (BEAKER) (test code = DOMINIQUE Meyer [facility] 1538) [address] COMPREHENSIVE METABOLIC [id number] 06:52:00 Test Item Value Reference Range Interpretation [...] S NOT APPLICABLE FOR DIALYSIS PATIEN TS. [id number] 06:47:00 Test Item Value Reference Range Interpretation Comments PHOSPHORUS (BEAKER) (test code = 2.8 mg/dL 2.3-4.7 604) [id number] 06:47:00 Test Item Value Reference Range Interpretation Comments MAGNESIUM (BEAKER) (test code = 1.6 mg/dL 1.6-2.6 627) CBC W/PLT COUNT & AUTO [id number] 06:42:00 Test Item Value Reference Range Interpretation [...] WBC 0-0 (BEAKER) (test code = 413) [id number] 06:35:00 Test Item Value Reference Range Interpretation Comments PARTIAL THROMBOPLASTIN TIME 73.5 seconds 22.5-36.0 H (BEAKER) (test code = 760) CALCIUM, [id number] 06:31:00 Test Item Value Reference Range Interpretation Comments CALCIUM IONIZED (BEAKER) (test 1.09 mmol/L 1.12-1.27 L code = 698) PH, BLOOD (BEAKER) (test code = 7.43 1810) [id number] 00:08:00 Test Item Value Reference Range Interpretation Comments PARTIAL THROMBOPLASTIN TIME 90.3 seconds 22.5-36.0 H (BEAKER) (test code = 760) POCT-GLUCOSE [id number] 21:20:00 Test Item Value Reference Range Interpretation Comments POC-GLUCOSE METER 138 mg/dL 70-110 H TESTED AT [facility] 67 (BEAKER) (test code = DOMINIQUE [place] 1538) [address] BASIC METABOLIC [id number] 18:42:00 Test Item Value Reference Range Interpretation [...] S NOT APPLICABLE FOR DIALYSIS PATIEN TS. [id number] 18:26:00 Test Item Value Reference Range Interpretation Comments PARTIAL THROMBOPLASTIN TIME 80.9 seconds 22.5-36.0 H (BEAKER) (test code = 760) POCT-GLUCOSE [id number] 17:22:00 Test Item Value Reference Range Interpretation Comments POC-GLUCOSE METER 129 mg/dL 70-110 H TESTED AT [place] [address] ([facility]) (test code = DOMINIQUE Meyer [place] 1538) [address] POCT-GLUCOSE [id number] 12:51:00 Test Item Value Reference Range Interpretation Comments POC-GLUCOSE METER 240 mg/dL 70-110 H TESTED AT [place] [address] ([facility]) (test code = DOMINIQUE Meyer [place] 1538) [address] [id number] 12:31:00 Test Item Value Reference Range Interpretation Comments RPR SCREEN ([facility]) (test code = Nonreactive Nonreactive 420) [id number] 12:18:00 Test Item Value Reference Range Interpretation Comments PARTIAL THROMBOPLASTIN TIME 61.7 seconds 22.5-36.0 H ([facility]) (test code = 760) EOSINOPHIL SMEAR, [id number] 10:02:00 Test Item Value Reference Range Interpretation Comments EOSINOPHIL SMEAR, URINE Rare EOS =less than No EOS seen A ([facility]) (test code = 5% WBCs seen are EOS 1851) POCT-GLUCOSE [id number] 09:06:00 Test Item Value Reference Range Interpretation Comments POC-GLUCOSE METER 137 mg/dL 70-110 H TESTED AT [place] [address] ([facility]) (test code = DOMINIQUE Meyer [place] 1538) [address] CREATININE, RANDOM [id number] 08:22:00 Test Item Value Reference Range Interpretation Comments CREATININE URINE ([facility]) (test 54.1 mg/dL code = 375) Reference Range: No NormalsPROTEIN, RANDOM [id number] 08:22:00 Test Item Value Reference Range Interpretation Comments PROTEIN, URINE (BEAKER) (test code = 44 mg/dL 0-14 H 1569) VITAMIN B12 AND [id number] 08:14:00 Test Item Value Reference Range Interpretation Comments VITAMIN B12 (BEAKER) (test code = 455 pg/mL 213-816 774) FOLATE (BEAKER) (test code = 362) 9.9 ng/mL >=7.0 COMPREHENSIVE METABOLIC [id number] 06:59:00 Test Item Value Reference Range Interpretation Comments TOTAL PROTEIN 7.0 gm/dL 6.0-8.3 (AKER) (test code = 770) ALBUMIN (BEAKER) 4.0 [...] S NOT APPLICABLE FOR DIALYSIS PATIEN TS. [id number] 06:34:00 Test Item Value Reference Range Interpretation Comments PHOSPHORUS (BEAKER) (test code = 3.2 mg/dL 2.3-4.7 604) [id number] 06:34:00 Test Item Value Reference Range Interpretation Comments MAGNESIUM (BEAKER) (test code = 1.7 mg/dL 1.6-2.6 627) URINALYSIS W/ [id number] 04:37:00 Test Item Value Reference Range Interpretation [...] = Few 1585) SOURCE(BEAKER) (test code = 8755) [id number] 04:21:00 Test Item Value Reference Range Interpretation Comments PARTIAL THROMBOPLASTIN TIME 53.5 seconds 22.5-36.0 H (BEAKER) (test code = 760) CBC W/PLT COUNT & AUTO [id number] 04:09:00 Test Item Value Reference Range Interpretation [...] PERCENT (BEAKER) (test code = 2801) CALCIUM, [id number] 04:08:00 Test Item Value Reference Range Interpretation Comments CALCIUM IONIZED (BEAKER) (test 1.12 mmol/L 1.12-1.27 code = 698) PH, BLOOD (BEAKER) (test code = 7.44 1810) POCT-GLUCOSE [id number] 21:13:00 Test Item Value Reference Range Interpretation Comments POC-GLUCOSE METER 126 mg/dL 70-110 H TESTED AT [facility] 6720 (BEAKER) (test code = [place] 1538) [address] BASIC METABOLIC [id number] 18:33:00 Test Item Value Reference Range Interpretation [...] 358) GLUCOSE RANDOM 131 mg/dL 70-105 H (BEAKER) (test code = 652) CALCIUM (BEAKER) 9.1 mg/dL 8.4-10.2 (test code = 697) EGFR (BEAKER) (test 10 mL/min/1.73 ESTIMA FLORENCE GFR IS code = 1092) sq m NOT ACCURATE CREATININE CLEARANCE IN PREDICTING GLOMERULAR FILTRATION RATE . ESTIMATED GFR I S NOT APPLICABLE FOR DIALYSIS PATIEN TS. POCT-GLUCOSE [id number] 18:12:00 Test Item Value Reference Range Interpretation Comments POC-GLUCOSE METER 147 mg/dL 70-110 H TESTED AT [place] [address] ([facility]) (test code = [facility] 1538) [id number] POCT-GLUCOSE [id number] 13:42:00 Test Item Value Reference Range Interpretation Comments POC-GLUCOSE METER 136 mg/dL 70-110 H TESTED AT [place] [address] ([facility]) (test code = [facility] 1538) [address] POCT-GLUCOSE [id number] 09:22:00 Test Item Value Reference Range Interpretation Comments POC-GLUCOSE METER 134 mg/dL 70-110 H TESTED AT [place] [address] ([facility]) (test code = [facility] 1538) [address] B-TYPE NATRIURETIC FACTOR (BNP)2018-11-30 02:02:00 Test Item Value Reference Range Interpretation Comments B-TYPE NATRIURETIC PEPTIDE (BEAKER) 747 pg/mL 0-100 H (test code = 700) TROPONIN [id number] 01:55:00 Test Item Value Reference Range Interpretation Comments [facility] (test code = 0.04 ng/mL 0.00-0.03 H [...] failure, acidosis, acute neurological disease, and persistent tachyarrhythmia.[id number] 01:55:00 Test Item Value Reference Range Interpretation Comments PARTIAL THROMBOPLASTIN TIME 73.6 seconds 22.5-36.0 H (BEAKER) (test code = 760) COMPREHENSIVE METABOLIC [id number] 01:49:00 Test Item Value Reference Range Interpretation [...] S NOT APPLICABLE FOR DIALYSIS PATIEN TS. [id number] 01:48:00 Test Item Value Reference Range Interpretation Comments PHOSPHORUS (BEAKER) (test code = 3.5 mg/dL 2.3-4.7 604) [id number] 01:48:00 Test Item Value Reference Range Interpretation Comments MAGNESIUM (BEAKER) (test code = 1.8 mg/dL 1.6-2.6 627) CALCIUM, [id number] 01:27:00 Test Item Value Reference Range Interpretation Comments CALCIUM IONIZED (BEAKER) (test 1.07 mmol/L 1.12-1.27 L code = 698) PH, BLOOD (BEAKER) (test code = 7.41 1810) CBC W/PLT COUNT & AUTO [id number] 01:25:00 Test Item Value Reference Range Interpretation [...] PERCENT (BEAKER) (test code = 2801) POCT-GLUCOSE [id number] 21:31:00 Test Item Value Reference Range Interpretation Comments POC-GLUCOSE METER 125 mg/dL 70-110 H TESTED AT [place] [address] ([facility]) (test code = [facility] [place] 1538) [address] TROPONIN [id number] 18:55:00 Test Item Value Reference Range Interpretation Comments TROPONIN I (BEAKER) (test code = 0.05 ng/mL 0.00-0.03 H [...] acidosis, acute neurological disease, and persistent tachyarrhythmia.POCT-GLUCOSE [id number] 18:04:00 Test Item Value Reference Range Interpretation Comments POC-GLUCOSE METER 140 mg/dL 70-110 H TESTED AT [facility] ([facility]) (test code = [facility] [place] 1538) [address] BASIC METABOLIC [id number] 17:31:00 Test Item Value Reference Range Interpretation [...] NOT APPLICABLE FOR DIALYSIS PATIEN TS. POCT-GLUCOSE [id number] 13:03:00 Test Item Value Reference Range Interpretation Comments POC-GLUCOSE METER 137 mg/dL 70-110 H TESTED AT [place] [address] ([facility]) (test code = [facility] [place] 1538) [address] TROPONIN [id number] 12:03:00 Test Item Value Reference Range Interpretation Comments TROPONIN I (AKER) (test code = 0.06 ng/mL 0.00-0.03 H [...] failure, acidosis, acute neurological disease, and persistent tachyarrhythmia.[id number] 11:43:00 Test Item Value Reference Range Interpretation Comments PARTIAL THROMBOPLASTIN TIME 72.3 seconds 22.5-36.0 H (BEAKER) (test code = 760) POCT-GLUCOSE [id number] 08:15:00 Test Item Value Reference Range Interpretation Comments POC-GLUCOSE METER 131 mg/dL 70-110 H TESTED AT [facility] (BEAKER) (test code = [facility] [place] 1538) [address] [id number] 05:18:00 Test Item Value Reference Range Interpretation Comments PARTIAL THROMBOPLASTIN TIME 74.2 seconds 22.5-36.0 H (BEAKER) (test code = 760) [id number] 03:28:00 Test Item Value Reference Range Interpretation Comments PARTIAL THROMBOPLASTIN TIME 136.3 seconds 22.5-36.0 H (BEAKER) (test code = 760) COMPREHENSIVE METABOLIC [id number] 02:40:00 Test Item Value Reference Range Interpretation [...] S NOT APPLICABLE FOR DIALYSIS PATIEN TS. [id number] 02:21:00 Test Item Value Reference Range Interpretation Comments PHOSPHORUS (BEAKER) (test code = 3.2 mg/dL 2.3-4.7 604) [id number] 02:21:00 Test Item Value Reference Range Interpretation Comments MAGNESIUM (BEAKER) (test code = 1.8 mg/dL 1.6-2.6 627) CALCIUM, [id number] 02:03:00 Test Item Value Reference Range Interpretation Comments CALCIUM IONIZED (BEAKER) (test 1.06 mmol/L 1.12-1.27 L code = 698) PH, BLOOD (BEAKER) (test code = 7.39 1810) CBC W/PLT COUNT & AUTO [id number] 01:57:00 Test Item Value Reference Range Interpretation [...] PERCENT (BEAKER) (test code = 2801) POCT-GLUCOSE [id number] 21:08:00 Test Item Value Reference Range Interpretation Comments POC-GLUCOSE METER 119 mg/dL 70-110 H TEST[facility] AT [place] [address] [facility] (test code = [facility] 1538) [address] POCT-GLUCOSE [id number] 20:09:00 Test Item Value Reference Range Interpretation Comments POC-GLUCOSE METER 111 mg/dL 70-110 H TESTED AT [place] [address] ([facility]) (test code = [facility] 1538) [address] [id number] 19:38:00 Test Item Value Reference Range Interpretation Comments PARTIAL THROMBOPLASTIN TIME 73.3 seconds 22.5-36.0 H (BEAKER) (test code = 760) BASIC METABOLIC [id number] 16:43:00 Test Item Value Reference Range Interpretation [...] (test code = 697) EGFR (BEAKER) (test 7 mL/min/1.73 ESTIMAT ED GFR IS code = 1092) sq m NOT ACCURATE CREATININE CLEARANCE IN PREDICTING GLOMERULAR FILTRATION RATE . ESTIMATED GFR I S NOT APPLICABLE FOR DIALYSIS PATIEN TS. POCT-GLUCOSE [id number] 13:17:00 Test Item Value Reference Range Interpretation Comments POC-GLUCOSE METER 143 mg/dL 70-110 H TESTED AT [facility] (BEAKER) (test code = [facility] [place] 1538) [address] URINE PROTEIN ELECTROPHORESIS, [id number] 10:08:00 Test Item Value Reference Range Interpretation Comments PROTEIN, URINE 66 mg/dL 0-14 H (BEAKER) (test code = 1569) ALBUMIN URINE ELP 38.9 % (BEAKER) (test code = 1018) GAMMA GLOBULIN URINE 61.1 % (BEAKER) (test code = 1015) UPEP, ID-438 (BEAKER) Indistinct banding in (test code = 2604) gamma region. Urine MARKEL ordered for further clarification. [id number] Cyn Burgos MD (BEAKER) (test code = (electronic signature) 9709) [id number] 09:20:00 Test Item Value Reference Range Interpretation Comments PARTIAL THROMBOPLASTIN TIME 41.1 seconds 22.5-36.0 H (BEAKER) (test code = 760) Prior to initiating heparinPROTEIN ELECTROPHORESIS, [id number] 08:56:00 Test Item Value Reference Range Interpretation [...] acute inflammation. No 2615) monoclonal bands detected. [id number] Cyn Burgos MD (BEAKER) (test code = (electronic signature) 2612) PROTEIN TOTAL SERUM, 5.9 gm/dL 6.0-8.3 L SPEP (BEAKER) (test code = 7660) POCT-GLUCOSE [id number] 08:36:00 Test Item Value Reference Range Interpretation Comments POC-GLUCOSE METER 144 mg/dL 70-110 H TESTED AT [facility] (BEAKER) (test code = [facility] [place] 1538) [address] COMPREHENSIVE METABOLIC [id number] 05:48:00 Test Item Value Reference Range Interpretation [...] S NOT APPLICABLE FOR DIALYSIS PATIEN TS. [id number] 05:01:00 Test Item Value Reference Range Interpretation Comments PHOSPHORUS (BEAKER) (test code = 4.9 mg/dL 2.3-4.7 H 604) [id number] 05:01:00 Test Item Value Reference Range Interpretation Comments MAGNESIUM (BEAKER) (test code = 1.9 mg/dL 1.6-2.6 627) CBC W/PLT COUNT & AUTO [id number] 04:32:00 Test Item Value Reference Range Interpretation [...] PERCENT (BEAKER) (test code = 2801) CALCIUM, [id number] 04:19:00 Test Item Value Reference Range Interpretation Comments CALCIUM IONIZED (BEAKER) (test 1.06 mmol/L 1.12-1.27 L code = 698) PH, BLOOD (BEAKER) (test code = 7.37 1810) POCT-GLUCOSE [id number] 22:00:00 Test Item Value Reference Range Interpretation Comments POC-GLUCOSE METER 116 mg/dL 70-110 H TESTED AT [facility] ([facility] (test code = [facility] 1538) [address] POCT-GLUCOSE [id number] 17:59:00 Test Item Value Reference Range Interpretation Comments POC-GLUCOSE METER 130 mg/dL 70-110 H TESTED AT [place] [address] ([facility]) (test code = [facility] 1538) [address] BASIC METABOLIC [id number] 17:01:00 Test Item Value Reference Range Interpretation Comments SODIUM (BEAKER) 139 meq/L 136-145 (test code = 381) POTASSIUM (BEAKER) 3.5 meq/L 3.5-5.1 (test code = 379) CHLORIDE (BEAKER) 97 meq/L 98-107 L (test code = 382) CO2 (BEAKER) (test 29 meq/L 22-29 code = 355) BLOOD UREA NITROGEN 68 mg/dL 7-21 H (BEAKER) (test code = 354) CREATININE (BEAKER) 11.26 mg/dL 0.57-1.25 H (test code = 358) GLUCOSE RANDOM 113 mg/dL 70-105 H (BEAKER) (test code = 652) CALCIUM (BEAKER) 8.2 mg/dL 8.4-10.2 L (test code = 697) EGFR (BEAKER) (test 3 mL/min/1.73 ESTIMAT ED GFR IS code = 1092) sq m NOT ACCURATE CREATININE CLEARANCE IN PREDICTING GLOMERULAR FILTRATION RATE . ESTIMATED GFR I S NOT APPLICABLE FOR DIALYSIS PATIEN TS. RHEUMATOID FACTOR AB, REFLEX TO [id number] 14:07:00 Test Item Value Reference Range Interpretation Comments RHEUMATOID FACTOR (BEAKER) (test Negative code = 573) POCT-GLUCOSE [id number] 12:15:00 Test Item Value Reference Range Interpretation Comments POC-GLUCOSE METER 152 mg/dL 70-110 H TESTED AT [facility] ([facility]) (test code = [place] 1538) [address] ANTI-NUCLEAR ANTIBODY (JUAN)2018-11-27 10:16:00 Test Item Value Reference Range Interpretation Comments ANTI-NUCLEAR ANTIBODY (JUAN) (BEAKER) Negative Negative (test code = 418) Test performed by IFA method.Test performed by IFA method.T4, [id number] 06:28:00 Test Item Value Reference Range Interpretation Comments FREE T4 (BEAKER) (test code = 655) 0.57 ng/dL 0.70-1.48 L [id number] 05:43:00 Test Item Value Reference Range Interpretation Comments FERRITIN (BEAKER) (test code = 361) 264 ng/mL 5-275 TSH/FREE T4 IF [id number] 05:30:00 Test Item Value Reference Range Interpretation Comments THYROID STIMULATING HORMONE 8.31 uIU/mL 0.35-4.94 H (BEAKER) (test code = 772) HEPATITIS PANEL, [id number] 05:26:00 Test Item Value Reference Range Interpretation Comments HEPATITIS A IGM ANTIBODY (BEAKER) Nonreactive Nonreactive (test code = 498) HEPATITIS B CORE IGM ANTIBODY Nonreactive Nonreactive (BEAKER) (test code = 645) HEPATITIS C ANTIBODY (BEAKER) Nonreactive Nonreactive (test code = 367) HEPATITIS B SURFACE ANTIGEN (2) Nonreactive Nonreactive (BEAKER) (test code = 2585) COMPREHENSIVE METABOLIC [id number] 05:13:00 Test Item Value Reference Range Interpretation [...] APPLICABLE FOR DIALYSIS PATIEN TS. COMPLEMENT COMPONENT [id number] 05:10:00 Test Item Value Reference Range Interpretation Comments C4 COMPLEMENT (BEAKER) (test code = 43 mg/dL 15-57 394) COMPLEMENT COMPONENT [id number] 05:10:00 Test Item Value Reference Range Interpretation [...] H (BEAKER) (test code = 700) URIC [id number] 05:02:00 Test Item Value Reference Range Interpretation Comments URIC ACID (BEAKER) (test code = 6.2 mg/dL 2.6-7.2 773) [id number] 05:02:00 Test Item Value Reference Range Interpretation Comments MAGNESIUM (BEAKER) (test code = 2.1 mg/dL 1.6-2.6 627) [id number] 05:02:00 Test Item Value Reference Range Interpretation Comments PHOSPHORUS (BEAKER) (test code = 8.7 mg/dL 2.3-4.7 H 604) CREATINE KINASE (CK)2018-11-27 05:02:00 Test Item Value Reference Range Interpretation Comments CREATINE KINASE TOTAL (BEAKER) (test 546 U/L 29-200 H code = 380) RETICULOCYTE [id number] 04:40:00 Test Item Value Reference Range Interpretation Comments RETICULOCYTE COUNT PCT (BEAKER) (test 0.9 % 0.5-1.7 code = 575) CBC W/PLT COUNT & AUTO [id number] 04:40:00 Test Item Value Reference Range Interpretation [...] PERCENT (BEAKER) (test code = 2801) CALCIUM, [id number] 04:33:00 Test Item Value Reference Range Interpretation Comments CALCIUM IONIZED (BEAKER) (test 1.00 mmol/L 1.12-1.27 L code = 698) PH, BLOOD (BEAKER) (test code = 7.36 1810) POCT-GLUCOSE [id number] 04:20:00 Test Item Value Reference Range Interpretation Comments POC-GLUCOSE METER 110 mg/dL 70-110 TESTED AT [facility] (BEAKER) (test code = [place] [place] 1538) [address] BASIC METABOLIC [id number] 20:54:00 Test Item Value Reference Range Interpretation [...] NOT APPLICABLE FOR DIALYSIS PATIEN TS. POCT-GLUCOSE [id number] 18:14:00 Test Item Value Reference Range Interpretation Comments POC-GLUCOSE METER 109 mg/dL 70-110 TESTED AT [facility] (BEAKER) (test code = [facility] 1538) [address] EOSINOPHIL SMEAR, [id number] 16:26:00 Test Item Value Reference Range Interpretation Comments EOSINOPHIL SMEAR, URINE Positive = greater No EOS seen A (BEAKER) (test code = than 5% WBCs are EOS 1851) CREATININE, RANDOM [id number] 15:55:00 Test Item Value Reference Range Interpretation Comments CREATININE URINE (BEAKER) (test 43.0 mg/dL code = 375) Reference Range: No NormalsPROTEIN, RANDOM [id number] 15:55:00 Test Item Value Reference Range Interpretation Comments PROTEIN, URINE (BEAKER) (test code = 66 mg/dL 0-14 H 1569) SODIUM, RANDOM [id number] 15:55:00 Test Item Value Reference Range Interpretation Comments SODIUM URINE (BEAKER) (test code = 89 meq/L 243) Reference Range: No NormalsURINALYSIS W/ [id number] 15:52:00 Test Item Value Reference Range Interpretation [...] SOURCE(BEAKER) (test code = 2795) U/S, RENAL, [id number] 15:05:00Reason for exam:->renal failureFINAL REPORT TECHNIQUE: Grayscale [...] Hutchinson catheter. IMPRESSION:Unremarkable renal ultrasound. Signed: Yuriy [place] Verified Date/Time: 11/26/2018 15:05:19 Reading Location: [address] Radiology Reading Room BASI METABOLIC [id number] 11:50:00 Test Item Value Reference Range Interpretation [...] NOT APPLICABLE FOR DIALYSIS PATIEN TS. HEMOGLOBIN [id number] 11:39:00 Test Item Value Reference Range Interpretation Comments HEMOGLOBIN A1C (BEAKER) (test code = 7.2 % 4.3-6.1 H 368) POCT-GLUCOSE [id number] 11:34:00 Test Item Value Reference Range Interpretation Comments POC-GLUCOSE METER 96 mg/dL 70-110 TESTED AT [facility] (BEAKER) (test code = [facility] [address] 1538) CREATININE, RANDOM [id number] 08:00:00 Test Item Value Reference Range Interpretation Comments CREATININE URINE (BEAKER) (test 55.9 mg/dL code = 375) Reference Range: No NormalsSODIUM, RANDOM [id number] 08:00:00 Test Item Value Reference Range Interpretation Comments SODIUM URINE (BEAKER) (test code = 69 meq/L 243) Reference Range: No NormalsUREA NITROGEN, RANDOM [id number] 08:00:00 Test Item Value Reference Range Interpretation Comments UREA NITROGEN URINE (BEAKER) (test 207 mg/dL code = 538) Reference Range: No NormalsBASIC METABOLIC [id number] 07:16:00 Test Item Value Reference Range Interpretation [...] APPLICABLE FOR DIALYSIS PATIEN TS. HEPATITIS PANEL, [id number] 07:11:00 Test Item Value Reference Range Interpretation Comments HEPATITIS A IGM ANTIBODY (BEAKER) Nonreactive Nonreactive (test code = 498) HEPATITIS B CORE IGM ANTIBODY Nonreactive Nonreactive (BEAKER) (test code = 645) HEPATITIS C ANTIBODY (BEAKER) Nonreactive Nonreactive (test code = 367) HEPATITIS B SURFACE ANTIGEN (2) Nonreactive Nonreactive (BEAKER) (test code = 2585) [id number] 07:09:00 Test Item Value Reference Range Interpretation Comments MAGNESIUM (BEAKER) (test code = 2.6 mg/dL 1.6-2.6 627) TROPONIN [id number] 07:02:00 Test Item Value Reference Range Interpretation [...] acute neurological disease, and persistent tachyarrhythmia.URINALYSIS W/ [id number] 06:20:00 Test Item Value Reference Range Interpretation [...] code = 1584) SOURCE(BEAKER) (test code = 2207) BLOOD GAS, [id number] 06:08:00 Test Item Value Reference Range Interpretation [...] -2.0-3.0 L code = 704) PATIENT TEMPERATURE (BEAKER) 37.0 C (test code = 1818) FIO2 (BEAKER) (test code = 1819) 21.0 % POCT-GLUCOSE [id number] 05:57:00 Test Item Value Reference Range Interpretation Comments POC-GLUCOSE METER 84 mg/dL 70-110 TESTED AT [facility] ([facility]) (test code = [place] [address] 1538) [id number] 04:20:00 Test Item Value Reference Range Interpretation Comments FERRITIN (BEAKER) (test code = 361) 241 ng/mL 5-275 HIV-1 ANTIGEN WITH HIV-1/2 [id number] 04:15:00 Test Item Value Reference Range Interpretation Comments HIV-1 ANTIGEN WITH HIV 1\\T\\2 Nonreactive Nonreactive ANTIBODY (2) (BEAKER) (test code = 2586) RAD, CHEST, 1 VIEW, NON [id number] 04:02:00Reason for exam:->DIALYSIS CATHTER PLACEMENTShould this be [...] Stable surgical changes.Additional findings: None. Signed: Karla Nieveseport Verified Date/Time: 11/26/2018 04:02:49 Electronically signed by: KARLA NIEVES MD on11/26/2018 04:02 AMPTH, [id number] 04:00:00 Test Item Value Reference Range Interpretation Comments PARATHYROID HORMONE INTACT 375.7 pg/mL 8.5-72.5 H (BEAKER) (test code = 577) IRON, TIBC, % SAT. (WITHOUT FERRITIN)2018-11-26 03:54:00 Test Item Value Reference Range Interpretation Comments IRON (BEAKER) (test code = 547) 47.0 ug/dL 40.0-160.0 TOTAL IRON BINDING CAPACITY 309 ug/dL 250-450 (BEAKER) (test code = 769) IRON % SATURATION (2) (BEAKER) 15 % 20-55 L (test code = 2590) BLOOD GAS, [id number] 03:31:00 Test Item Value Reference Range Interpretation [...] (test code = 1819) 21.0 % T4, [id number] 02:37:00 Test Item Value Reference Range Interpretation Comments FREE T4 (BEAKER) (test code = 655) 0.49 ng/dL 0.70-1.48 L TSH/FREE T4 IF [id number] 01:57:00 Test Item Value Reference Range Interpretation Comments THYROID STIMULATING HORMONE 14.30 uIU/mL 0.35-4.94 H (BEAKER) (test code = 772) TROPONIN [id number] 01:39:00 Test Item Value Reference Range Interpretation [...] 0-100 H (BEAKER) (test code = 700) [id number] 01:35:00 Test Item Value Reference Range Interpretation Comments PHOSPHORUS (BEAKER) (test code = 12.3 mg/dL 2.3-4.7 HH 604) COMPREHENSIVE METABOLIC [id number] 01:34:00 Test Item Value Reference Range Interpretation [...] NOT APPLICABLE FOR DIALYSIS PATIEN TS. LIPID [id number] 01:33:00 Test Item Value Reference Range Interpretation [...] 668 U/L 29-200 H code = 380) [id number] 01:31:00 Test Item Value Reference Range Interpretation Comments MAGNESIUM (BEAKER) (test code = 2.6 mg/dL 1.6-2.6 627) PT/[id number] 01:29:00 Test Item Value Reference Range Interpretation [...] thrombosis and/or pulmonary embolus.HIGH RISK: Target INR is 2.5-3.5 for patients wiht mechanical heart valves.PROTHROMBIN TIME/[id number] 01:28:00 Test Item Value Reference Range Interpretation Comments PROTIME (BEAKER) (test code = 16.7 seconds 11.9-14.2 H 759) INR (BEAKER) (test code = 370) 1.4 <=5.9 Effective 10/02/2018: PT Reference Range ChangeNew: 11.9-14.2 Previous: 11.7- 14.7RECOMMENDED COUMADIN/WARFARIN INR THERAPY RANGESSTANDARD DOSE: 2.0-3.0 Includes: PROPHYLAXIS for venous thrombosis, systemic embolization; TREATMENT for venous thrombosis and/or pulmonary embolus.HIGH RISK: Target INR is 2.5-3.5 for patients wiht mechanical heart valves.LACTIC ACID, [id number] 01:24:00 Test Item Value Reference Range Interpretation Comments LACTATE BLOOD VENOUS 1.7 mmol/L 0.5-2.2 Specime n slightly (2) (BEAKER) (test hemolyzed code = 2872) RAD, CHEST, 1 VIEW, NON [id number] 01:15:00Reason for exam:->Elevated BNPShould this be performed at the bedside?->YesFINAL REPORT Chest, 1 view. History: Elevated BNP. Comparison: None available. IMPRESSION: Cardiac mediastinal silhouette within normal limits. Postsurgical changes of a median sternotomy with fractured second most superior sternotomy wire. Pulmonary vasculature is exaggerated bytechnique. No lobar consolidation or pleural effusion. No pneumothorax. Osseous structures are grossly unremarkable. Signed: Karla Nieves [facility] Verified Date/Time: 11/26/2018 01:15:17 CBC W/PLT COUNT & AUTO [id number] 01:14:00 Test Item Value Reference Range Interpretation [...] % 0-1 PERCENT (BEAKER) (test code = 4998)
[2022-05-13 17:28] LABS: Absolute Lymphocytes (CBC) 1.2 K/uL (0.7-4.9); Hematocrit 32.5 % (36.0-45.0); Lymphocytes % 12.8 % (15.3-44.8); MCV 86.3 fL (80-100); RBC Red Blood Cell Count 3.77 M/uL (3.86-4.86)
[2022-05-13 17:29] LABS: Protime INR 1.78
--- NOTE | 2022-05-13 17:34 | RAD REPORT ---
EXAM DESCRIPTION: RAD - Chest Single View - 05/13/2022 5:25 pm CLINICAL HISTORY: SOB COMPARISON: <Comparisons> FINDINGS: Lines: None. Lungs: Increased interstitial and airspace disease bilaterally. Pleural: Small effusions difficult to exclude. Cardiac: Cardiomegaly. Sternotomy. Mediastinum: Within normal limits. Bones: No acute fractures. Other: None IMPRESSION: Worsening interstitial and airspace disease most likely representing pulmonary edema. Pn eumonia less likely.
[2022-05-13 17:46] LABS: Bilirubin Direct 0.3 mg/dL (0-0.2); Bilirubin Total 1.8 mg/dL (0.2-1.0); Magnesium 1.9 mg/dL (1.6-2.4); Potassium 3.7 mmol/L (3.5-5.1); Protein, Total 6.8 g/dL (6.4-8.2); Troponin High Sensitivity 24.5 pg/mL (<58.9)
[2022-05-13 18:02] LABS: SARS-COV-2 RT PCR NEGATIVE (NEGATIVE)
--- NOTE | 2022-05-13 18:12 | EDPHYS ---
Physician Documentation [facility] Name: Renetta Dey Age: 71 yrs Sex: Female : 1950 Arrival Date: 05/13/2022 Time: 16:11 Bed 15 Private MD: Yusef Zurita B ED Physician Kyle Woods HPI: 05/13 16:32 This 71 yrs old Female presents to ER via Wheelchair with complaints of jmm Breathing Difficulty. 16:32 The patient has shortness of breath at rest. Onset: The symptoms/episode began/occurred jmm 1 day(s) ago. This 71-year-old female with history of CVA, diabetes mellitus, hypertension the presents emerged department with complaints of difficulty breathing beginning last night and worsening today. stated that her oxygen saturation was in the 80s at home. States the patient was more somnolent today.. Historical: - Allergies: 16:35 "no allergies that i know of"; vg1 - Home Meds: 16:35 amlodipine 10 mg tab 1 tab once daily [Active]; Eliquis 5 mg Oral tab 1 tab 2 times per vg1 day [Active]; duloxetine 20 mg Oral cpDR 1 cap 2 times per day [Active]; ezetimibe 10 mg Oral tab 1 tab once daily [Active]; furosemide 40 mg Oral tab 1 tab once daily [Active]; gabapentin 600 mg Oral tab 1 tab twice a day [Active]; rosuvastatin 20 mg Oral tab 1 tab once daily [Active]; - PMHx: 16:35 Back pain; CVA; Diabetes - IDDM; ESRD; Hypertension; vg1 - PSHx: 16:35 CABG; cardiac stents; Cholecystectomy; Peripheral stent; Phen pop bypass; vg1 - Immunization history:: Client reports receiving the 2nd dose of the Covid vaccine. - Social history:: Smoking status: Patient/guardian denies using tobacco, Stopped _ months ago 1.5. ROS: 16:32 Constitutional: Negative for fever, chills, and weight loss, Cardiovascular: Negative jmm for chest pain, palpitations, and edema. 16:32 Respiratory: Positive for shortness of breath. 16:32 All other systems are negative. Exam: 16:32 Constitutional: This is a well developed, well nourished patient who is awake, alert, jmm and in no acute distress. Head/Face: atraumatic. Eyes: EOMI, no conjunctival erythema appreciated ENT: Moist Mucus Membranes Neck: Trachea midline, Supple Chest/axilla: Normal chest wall appearance and motion. Cardiovascular: Regular rate and rhythm. No edema appreciated 16:32 Back: Normal ROM Skin: General appearance color normal 16:32 Respiratory: mild respiratory distress is noted, Respirations: labored breathing, that is mild, Breath sounds: rales, that are moderate, are heard diffusely. 16:32 Abdomen/GI: Inspection: obese 16:32 Musculoskeletal/extremity: ROM: intact in all extremities. 16:32 Skin: Appearance: Color: normal in color. 16:32 Neuro: Motor: is normal. 16:32 Psych: Behavior/mood is pleasant, cooperative. Vital Signs: 16:31 BP 172 / 73; Pulse 75; Resp 28; Temp 99.1(O); Pulse Ox 98% on 2.5 lpm NC; vg1 17:17 BP 150 / 107; Pulse 72; Resp 17; Pulse Ox 97% ; Weight 90.72 kg; Height 5 ft. 3 in. bp (160.02 cm); 19:00 BP 156 / 58; Pulse 70; Resp 24; Temp 98.9(O); Pulse Ox 96% on 2 lpm NC; Pain 0/10; pf1 20:00 BP 144 / 103; Pulse 71; Resp 22; Pulse Ox 97% on 2 lpm NC; Pain 0/10; pf1 21:00 BP 155 / 96; Pulse 81; Resp 21; Temp 98.1; Pulse Ox 97% on 2 lpm NC; Pain 0/10; pf1 17:17 Body Mass Index 35.43 (90.72 kg, 160.02 cm) bp MDM: 16:32 Patient medically screened. [facility] 18:11 Data reviewed: vital signs, nurses notes. Counseling: I had a detailed discussion with el the patient and/or guardian regarding: the historical points, exam findings, and any diagnostic results supporting the discharge/admit diagnosis, lab results, radiology results, the need for further work-up and treatment in the hospital. ED course: I discussed the patient with Kvng Mccartney whom accepted the patient to Dr. Lazaro zaldivar. 05/13 16:32 Order name: Basic Metabolic Panel; Complete Time: 17:49 [facility] 05/13 16:32 Order name: CBC with Diff; Complete Time: 17:37 [facility] 05/13 16:32 Order name: LFT's; Complete Time: 17:49 [facility] 05/13 16:32 Order name: Magnesium; Complete Time: 17:49 [facility] 05/13 16:32 Order name: NT PRO-BNP; Complete Time: 17:49 [facility] 05/13 16:32 Order name: PT-INR; Complete Time: 17:37 [facility] 05/13 16:32 Order name: Troponin HS; Complete Time: 17:49 [facility] 05/13 16:32 Order name: XRAY Chest (1 view); Complete Time: 17:37 [facility] 05/13 16:32 Order name: COVID-19/FLU A+B/RSV; Complete Time: 18:18 [facility] 05/13 18:01 Order name: DD; Complete Time: 18:18 [facility] 05/13 18:01 Order name: Blood Culture Adult (2) [facility] 05/13 18:01 Order name: Lactate w/ 2H reflex if indic.; Complete Time: 19:20 [facility] 05/13 18:01 Order name: Procalcitonin; Complete Time: 19:04 [facility] 05/13 18:18 Order name: CT Chest For PE Angio [facility] 05/13 16:32 Order name: EKG; Complete Time: 16:33 [facility] 05/13 16:32 Order name: Cardiac monitoring; Complete Time: 17:17 [facility] 05/13 16:32 Order name: EKG - Nurse/Tech; Complete Time: 17:56 [facility] 05/13 16:32 Order name: IV Saline Lock; Complete Time: 17:17 [facility] 05/13 16:32 Order name: Labs collected and sent; Complete Time: 17:17 [facility] 05/13 16:32 Order name: O2 Per Protocol; Complete Time: 17:17 [facility] 05/13 16:32 Order name: O2 Sat Monitoring; Complete Time: 17:17 [facility] 05/13 18:22 Order name: Chest For Pe Angio; Complete Time: 21:11 [facility] 05/13 19:17 Order name: Hutchinson; Complete Time: 21:13 jm Administered Medications: 18:15 Drug: Lasix (furosemide) 80 mg Route: IVP; Site: right hand; bp 19:15 Follow up: Response: No adverse reaction; Marked relief of symptoms pf1 Disposition: 05/14 15:09 Co-signature as Attending Physician, Kyle Woods MD. rn Disposition Summary: 05/13/22 18:12 Hospitalization Ordered Hospitalization Status: Observation [facility] Provider: Toño Willis Location: Telemetry/MedSurg (observation) [facility] Condition: Stable jm Problem: an acute exacerbation jm Symptoms: are unchanged [facility] Bed/Room Type: Standard [facility] Room Assignment: 424(05/13/22 20:11) cg Diagnosis - Acute pulmonary edema - Hypoxia [facility] Forms: - Medication Reconciliation Form m - SBAR form [facility] Signatures: Dispatcher [employer] EDGhulam Bai PA PA [facility] Kyle Woods MD MD rn Kvng Mccartney, DISK AND TAPE MACHINE TENDER-C DISK AND TAPE MACHINE TENDER-Cla1 Constanza Fang RN RN cg Misael Sandhu RN RN bp Lula Fang RN RN vg1 Lelia macias RN RN pf1 Corrections: (The following items were deleted from the chart) 05/13 20:11 18:12 [facility] cg
--- NOTE | 2022-05-13 18:12 | ER ---
Nurse's Notes [facility] Name: Renetta Dey Age: 71 yrs Sex: Female : 1950 Arrival Date: 05/13/2022 Time: 16:11 Bed 15 Private MD: Yusef Zurita B Diagnosis: Acute pulmonary edema-Hypoxia Presentation: 05/13 16:31 Chief complaint: Spouse and/or significant other states: Spouse stated pt has been vg1 sleeping all day, woke up pt at 1500 and noticed Left eye swelling and pt stated difficulty breathing. Spouse stated pt recently had a stroke about 6 weeks ago, has Right side weakness and aphasia. PATIENT c/o chest and back pain. upon arrival to registration pt O2 checked, read 80% RA, pt placed 4L NC; up to 95%.; pt appears to be labored breathing and pursed lips. Coronavirus screen: Vaccine status: Patient reports receiving the 2nd dose of the covid vaccine. Client denies travel out of the [place] in the last 14 days. Client presents with at least one sign or symptom that may indicate coronavirus-19. Standard/surgical mask placed on the client. Ebola Screen: Patient negative for fever greater than or equal to 101.5 degrees Fahrenheit, and additional compatible Ebola Virus Disease symptoms. Initial Sepsis Screen: Does the patient meet any 2 criteria? RR > 20 per min. Yes Does the patient have a suspected source of infection? No. Patient's initial sepsis screen is negative. Risk Assessment: Do you want to hurt yourself or someone else? Patient reports no desire to harm self or others. Onset of symptoms was May 13, 2022. 16:31 Method Of Arrival: Wheelchair vg1 16:31 Acuity: ELEAZAR 2 vg1 Triage Assessment: 16:35 General: Appears uncomfortable, Behavior is cooperative, anxious. Pain: Complains of vg1 pain in back and chest Pain currently is 9 out of 10 on a pain scale. Pain began 2 hours ago. Neuro: Level of Consciousness is awake, alert, obeys commands, Oriented to person, place, time, situation. Respiratory: Reports shortness of breath at rest on exertion labored breathing Airway is patent Trachea midline Respiratory effort is even, labored, pursed lip, Respiratory pattern is tachypnea Onset: The symptoms/episode began/occurred today, the patient has moderate shortness of breath. Derm: Skin is pink, warm \\T\\ dry. Historical: - Allergies: 16:35 "no allergies that i know of"; vg1 - Home Meds: 16:35 amlodipine 10 mg tab 1 tab once daily [Active]; Eliquis 5 mg Oral tab 1 tab 2 times per vg1 day [Active]; duloxetine 20 mg Oral cpDR 1 cap 2 times per day [Active]; ezetimibe 10 mg Oral tab 1 tab once daily [Active]; furosemide 40 mg Oral tab 1 tab once daily [Active]; gabapentin 600 mg Oral tab 1 tab twice a day [Active]; rosuvastatin 20 mg Oral tab 1 tab once daily [Active]; - PMHx: 16:35 Back pain; CVA; Diabetes - IDDM; ESRD; Hypertension; vg1 - PSHx: 16:35 CABG; cardiac stents; Cholecystectomy; Peripheral stent; Phen pop bypass; vg1 - Immunization history:: Client reports receiving the 2nd dose of the Covid vaccine. - Social history:: Smoking status: Patient/guardian denies using tobacco, Stopped _ months ago 1.5. Screenin:00 [facility] ED Fall Risk Assessment (Adult) History of falling in the last 3 months, bp including since admission No falls in past 3 months (0 pts) Confusion or Disorientation No (0 pts) Intoxicated or Sedated No (0 pts) Impaired Gait Yes (1 pt) Mobility Assist Device Used Yes (1 pt) Altered Elimination No (0 pt) Score/Fall Risk Level 0 - 2 = Low Risk Oriented to surroundings. Abuse screen: Denies threats or abuse. Denies injuries from another. Nutritional screening: No deficits noted. Tuberculosis screening: No symptoms or risk factors identified. Assessment: 16:35 General: SEE TRIAGE NOTE. bp 19:00 General: Appears in no apparent distress. comfortable, obese, well groomed, well pf1 developed, Behavior is calm, cooperative, appropriate for age, quiet. 19:00 Pain: Denies pain. Neuro: Level of Consciousness is awake, alert, obeys commands, pf1 Oriented to person, place, time, situation, Speech with expressive aphasia noted. Cardiovascular: Capillary refill < 3 seconds. Respiratory: Airway is patent Trachea midline Respiratory effort is labored, pursed lip, Respiratory pattern is tachypnea Breath sounds with rales bilaterally. 19:00 Cardiovascular: GI: No deficits noted. Abdomen is round non-distended, Bowel sounds pf1 present X 4 quads. : No deficits noted. No signs and/or symptoms were reported regarding the genitourinary system. EENT: Eyes swelling. Derm: No deficits noted. 19:00 Musculoskeletal: Swelling present in right arm and left arm and left leg and right leg pf1 with +2 pitting edema. 20:00 Reassessment: Patient appears in no apparent distress at this time. No changes from pf1 previously documented assessment. Patient and/or family updated on plan of care and expected duration. Pain level reassessed. Patient states symptoms have improved. 20:35 Cardiovascular: Rhythm is atrial fibrillation. pf1 21:11 Reassessment: Patient appears in no apparent distress at this time. No changes from pf1 previously documented assessment. Patient and/or family updated on plan of care and expected duration. Pain level reassessed. Vital Signs: 16:31 BP 172 / 73; Pulse 75; Resp 28; Temp 99.1(O); Pulse Ox 98% on 2.5 lpm NC; vg1 17:17 BP 150 / 107; Pulse 72; Resp 17; Pulse Ox 97% ; Weight 90.72 kg; Height 5 ft. 3 in. bp (160.02 cm); 19:00 BP 156 / 58; Pulse 70; Resp 24; Temp 98.9(O); Pulse Ox 96% on 2 lpm NC; Pain 0/10; pf1 20:00 BP 144 / 103; Pulse 71; Resp 22; Pulse Ox 97% on 2 lpm NC; Pain 0/10; pf1 21:00 BP 155 / 96; Pulse 81; Resp 21; Temp 98.1; Pulse Ox 97% on 2 lpm NC; Pain 0/10; pf1 17:17 Body Mass Index 35.43 (90.72 kg, 160.02 cm) bp ED Course: 16:11 Patient arrived in ED. am2 16:11 Yusef Zurita MD is Private Physician. am2 16:23 Misael Sandhu, PERLITA is Primary Nurse. bp 16:28 Ghulam Holt PA is PHCP. jmm 16:28 Kyle Woods MD is Attending Physician. jm 16:35 Triage completed. vg1 16:35 Arm band placed on. vg1 17:00 Patient has correct armband on for positive identification. Bed in low position. Call bp light in reach. Side rails up X2. Adult w/ patient. 17:15 Inserted saline lock: 24 gauge in right hand, using aseptic technique. Blood collected. bp 17:27 XRAY Chest (1 view) In Process Unspecified. EDMS 18:11 Toño Willis MD is Hospitalizing Provider. [facility] 19:00 Oxygen administration via nasal cannula \\T\\ 2L/min. pf1 19:44 Radiology exam delayed due to IV insertion attempt and/or patient not having bq appropriate IV at this time. 19:45 Hutchinson cath inserted, using sterile technique, 16 Fr., by sc, balloon inflated, to pf1 gravity drainage, clamped. 20:27 No provider procedures requiring assistance completed. pf1 20:30 Inserted saline lock: 20 gauge in right antecubital area, using aseptic technique. as6 ultrasound guided. 20:34 Primary Nurse role handed off by Misael Sandhu, PERLITA 21:10 Lelia macias, PERLITA is Primary Nurse. pf1 21:13 Blood Culture Adult (2) Sent. pf1 21:38 Patient admitted, IV remains in place. pf1 Administered Medications: 18:15 Drug: Lasix (furosemide) 80 mg Route: IVP; Site: right hand; bp 19:15 Follow up: Response: No adverse reaction; Marked relief of symptoms pf1 Medication: 20:28 VIS not applicable for this client. pf1 Output: 21:11 Urine: 900ml (Hutchinson); Total: 900ml. pf1 Outcome: 18:12 Decision to Hospitalize by Provider. [facility] 21:37 Admitted to Tele accompanied by [facility], via stretcher, room 424, with oxygen, with chart, pf1 Report called to PERLITA Gruber 21:38 Condition: stable pf1 21:38 Instructed on the need for admit, Demonstrated understanding of instructions. 21:39 Patient left the ED. pf1 Signatures: Dispatcher [employer] EDMS Ghulam Holt PA PA Adenike Case Amanda am2 Misael Sandhu, RN RN Lula Calix RN RN vg1 Makenna García Ashby, RN RN as6 macias, Lelai, RN RN pf1 Corrections: (The following items were deleted from the chart) 20:27 19:00 Respiratory: Airway is patent Trachea midline Respiratory effort is labored, pf1 pursed lip, Respiratory pattern is tachypnea pf1 20:36 19:00 Musculoskeletal: Swelling present in right leg and left leg with +2 pitting edema pf1 pf1 21:12 20:00 Reassessment: Patient appears in no apparent distress at this time. No changes pf1 from previously documented assessment. Patient and/or family updated on plan of care and expected duration. Pain level reassessed. Patient is alert, oriented x 3, equal unlabored respirations, skin warm/dry/pink. Patient states symptoms have improved. pf1
[2022-05-13] MEDS ORDERED: FUROSEMIDE 100 MG/10 ML VIAL IV ONE (18:20)
--- NOTE | 2022-05-13 19:16 | P.HP ---
Certification for Inpatient Patient admitted to: Inpatient With expected LOS: >2 Midnights Patient will require the following post-hospital care: None Practitioner: I am a practitioner with admitting privileges, knowledge of patient current condition, hospital course, and medical plan of care. 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 fib on Eliquis, hypothyroidism presents to the emergency department for shortness of breath, hypoxia. Her reports that after being discharged to follow-up with her PCP Dr. Zurita her medications were adjusted her spironolactone was discharged and she was told that she only needs to take her Lasix probably 3 times a week where she has significant swelling in her lower extremities she has not taken her Lasix for the past 2 days and has been taken off of spironolactone completely. She was very tired, short of breath at home her checked her oxygen saturation with a pulse ox and noted it was 80% on room air and referred to the emergency department for further evaluation. She was noted to be hypoxic at 80 to 85% room air in the emergency department her labs were significant for elevated BNP 1606 elevated D-dimer 1671 chest x-ray shows worsening interstitial and airspace disease most likely representing pulmonary edema. Pneumonia less likely. Procalcitonin was added which was negative. I suspect this is related to CHF, also need to rule out PE, D-dimer was elevated although patient does have a known partial left basilic vein thrombosis. CT PE protocol ordered. She is given IV Lasix in ED is diuresing well. - Past Medical/Surgical History Diabetic: Yes -: Diabetesinsulin-dependent -: Hypertension -: Atrial fibrillationon chronic anticoagulation -: CAD with CABG -: CHFdiastolic -: Kidney failure -: CVAexpressive aphasia/right-sided weakness -: triple bypass 2002 -: carotid artery sx 2002 -: GB surgery 2002 -: Fempop sx 2006 Psychosocial/ Personal History: Patient was at home with her - Family History Father -: Heart disease, Stroke - Social History Smoking Status: Never smoker Alcohol use: No CD- Drugs: No Caffeine use: Yes Place of Residence: Home <Kvng Mccartney - Last Filed: 05/13/22 19:11> Date of Service: 05/14/22 <Toño Willis - Last Filed: 05/14/22 11:39> Allergies iodine Allergy (Verified 04/18/22 14:36) Hives Home Medications: RX: Amiodarone HCl [Cordarone*] 100 mg PO BID 04/19/22 RX: Amlodipine [Norvasc*] 10 mg PO DAILY 04/19/22 RX: Apixaban [Eliquis] 5 mg PO BID 04/19/22 RX: Duloxetine [Cymbalta *] 20 mg PO BEDTIME 04/19/22 RX: Famotidine [Pepcid*] 20 mg PO DAILY 04/19/22 RX: Folic Acid 1 mg PO DAILY 04/19/22 RX: Gabapentin [Neurontin] 600 mg PO BID 04/19/22 RX: Levothyroxine [Synthroid*] 2 tab PO DAILY 04/19/22 RX: Melatonin 10 mg PO BEDTIME PRN 04/19/22 RX: Rosuvastatin Calcium [Crestor] 20 mg PO BEDTIME 04/19/22 RX: Sotalol HCl [Betapace*] 40 mg PO BID 04/19/22 RX: Furosemide [Lasix] 40 mg PO DAILY 05/02/22 RX: Insulin 70/30 NPH/Reg Human [Novolin 70/30*] 30 unit SQ DAILY WITH BREAKFAST #10 ml 05/02/22 RX: Spironolactone [Aldactone] 25 mg PO DAILY 05/02/22 Cyanocobalamin (Vitamin B-12) [Vitamin B12] 5,000 mcg PO DAILY 05/13/22 Ezetimibe [Zetia] 10 mg PO DAILY 05/13/22 Mv-Mn/Iron/Folic Acid/Herb 190 [Vitamin D3 Complete Caplet] 05/13/22 RX: Aspirin 81 mg PO DAILY 05/13/22 RX: Melatonin 10 mg PO PRN PRN 05/13/22 Review of Systems 10-point ROS is otherwise unremarkable Respiratory: Shortness of Breath Cardiovascular: Orthopnea, Edema <Kvng Mccartney - Last Filed: 05/13/22 19:11> Physical Examination - Physical Exam General: Alert, In no apparent distress, Oriented x3 HEENT: Atraumatic, PERRLA, Mucous membr. moist/pink, EOMI, Sclerae nonicteric Neck: Supple, 2+ carotid pulse no bruit, No LAD, Without JVD or thyroid abnormality Respiratory: Normal air movement, Crackles/rales Cardiovascular: Normal S1 S2, Edema, Irregular heart rate/rhythm (A. fib, rate controlled) Capillary refill: <2 Seconds Gastrointestinal: Normal bowel sounds, No tenderness Musculoskeletal: No tenderness Integumentary: No rashes Neurological: Normal tone, Normal affect, Abnormal speech (Expressive aphasia), Abnormal strength (Right upper and lower extremity weakness with right foot drop from previous CVA) - Studies Laboratory Data (last 24 hrs) 05/13/22 17:15: PT 19.6 H, INR 1.78 05/13/22 17:15: WBC 9.40, Hgb 10.5 L, Hct 32.5 L, Plt Count 267 05/13/22 17:15: Sodium 141, Potassium 3.7, BUN 10, Creatinine 0.62, Glucose 115 H, Magnesium 1.9, Total Bilirubin 1.8 H, AST 13 L, ALT 18, Alkaline Phosphatase 97 <Kvng Mccartney - Last Filed: 05/13/22 19:11> - Studies Laboratory Data (last 24 hrs) 05/13/22 17:15: PT 19.6 H, INR 1.78 05/13/22 17:15: WBC 9.40, Hgb 10.5 L, Hct 32.5 L, Plt Count 267 05/13/22 17:15: Sodium 141, Potassium 3.7, BUN 10, Creatinine 0.62, Glucose 115 H, Magnesium 1.9, Total Bilirubin 1.8 H, AST 13 L, ALT 18, Alkaline Phosphatase 97 Microbiology Data (last 24 hrs): 05/13/22 18:45 Blood - Blood Anaerobic Blood Culture - Final <Toño Willis - Last Filed: 05/14/22 11:39> Assessment and Plan - Plan Assessment: Acute hypoxic respiratory failure secondary to acute on chronic diastolic congestive heart failure Atrial fibrillation on chronic anticoagulation therapy Recent history of partial left basilic vein thrombosis CAD status post CABG Recent left MCA CVA-expressive aphasia/right-sided weakness Diabetes mellitus type 2insulin-dependent Hypertension Hypothyroidism Plan: Acute hypoxic respiratory failure secondary to acute on chronic diastolic congestive heart failure: Patient has not taken her diuretics in the last 2 days, she was also taken off of her spironolactone. We will continue with IV Lasix, restart oral spironolactone. Recent echocardiogram shows mild tricuspid regurgitation, mitral annular calcification, aortic sclerosis, normal left ventricular ejection fraction in size. Continue with diuresis, cardiology to be consulted. Patient will need adjustment of her medications at discharge. Atrial fibrillation on chronic anticoagulation therapy: Continue Eliquis, reduced dose sotalol, p.o. amiodarone which she reports she has been taking. Monitor on telemetry. Currently rate controlled. Recent history of partial left basilic vein thrombosis: Noted, continue Eliquis. CAD status post CABG: Continue home medications, monitor on telemetry. We will trend troponins given acute CHF. Recent left MCA CVA-expressive aphasia/right-sided weakness: Patient still with expressive aphasia, right foot drop, right upper and lower extremity weakness, will have PT work with patient while she is in the hospital. Diabetes mellitus type 2insulin-dependent: Recent A1c 9.5. Continue sliding scale insulin, home 70/30 dose. Hypertension: Home meds continued. Hypothyroidism:Home meds continued. DVT PPX: Continue Eliquis full Code status: Discharge Plan: Home Plan to discharge in: 72 Hours - Advance Directives Does patient have a Living Will: No Does patient have a Durable POA for Healthcare: No - Code Status/Comfort Care Code Status Assessed: Yes (Full code) Critical Care: No Time Spent Managing Pts Care (In Minutes): 70 <Kvng Mccartney - Last Filed: 05/13/22 19:11> Physician Review: Patient Assessed, Agree with Above Assessment and Plan <Toño Willis - Last Filed: 05/14/22 11:39>
--- NOTE | 2022-05-13 21:08 | RAD REPORT ---
EXAM DESCRIPTION: CT - Chest For Pe Angio - 05/13/2022 8:50 pm CLINICAL HISTORY: sob, elevated d-dimer COMPARISON: Chest For Pe Angio dated 03/21/2019; Chest Single View dated 05/13/2022 TECHNIQUE: Dynamically enhanced axial 3 mm thick images of the chest were obtained during administra tion of <100> mL Isovue 370 IV contrast. Coronal and oblique reconstruction images were generated and reviewed. Exam utilizes a protocol for optimal evaluation of pulmonary arterial tree. Maximum intensity projections 3D imaging was utilized All CT scans are performed using dose optimization technique as appropriate and may include automated exposure control or mA/KV adjustment according to patient size. FINDINGS: Chest Wall: No suspicious thyroid nodules or pathologic lymphadenopathy. Lungs: Limited by motion. Interlobular septal thickening is present. No consolidation is identified. Atelectasis as of the effusions. Pleura: Mild bilateral pleural effusions. Mediastinum/stacia: No pathologic lymphadenopathy. Pulmonary arteries/Aorta: No filling defect identified. No aortic aneurysm. Heart: No significant pericardial effusion. Cardiomegaly. Aortic valve calcifications. Coronary arter y calcifications. Upper abdomen: No acute abnormality.Reflux of contrast into the hepatic veins. Cholecystectomy. Bones: Compression deformity T4 is cry Sternotomy IMPRESSION: Negative for pulmonary embolism. Pulmonary edema with small bilateral pleural effusions.
[2022-05-13 22:01] VITALS: BMI 37.5
[2022-05-13] MEDS ORDERED: ONDANSETRON 4 MG/2 ML VIAL IV PRN (22:01)
[2022-05-13] MEDS: INSULIN -REGULAR HUMAN 50 UNIT/0.5 ML ML SQ SCH (22:01)
[2022-05-13] MEDS: GABAPENTIN 300 MG CAP PO SCH (23:37)
[2022-05-13] MEDS: APIXABAN 5 MG TABLET PO SCH (23:37)
[2022-05-13] MEDS: AMIODARONE HCL 200 MG TAB PO SCH (23:37)
[2022-05-13] MEDS: ROSUVASTATIN 10 MG TAB PO SCH (23:38)
[2022-05-13] MEDS: MELATONIN 5 MG TABLET PO PRN (23:39)
[2022-05-14 04:04] LABS: Absolute Lymphocytes (CBC) 1.1 K/uL (0.7-4.9); Hematocrit 31.9 % (36.0-45.0); Lymphocytes % 12.5 % (15.3-44.8); MCV 85.4 fL (80-100); RBC Red Blood Cell Count 3.73 M/uL (3.86-4.86)
[2022-05-14 04:36] LABS: Albumin 2.8 g/dL (3.4-5.0); Potassium 3.3 mmol/L (3.5-5.1); Protein, Total 6.4 g/dL (6.4-8.2); Troponin High Sensitivity 24.4 pg/mL (<58.9)
[2022-05-14] MEDS: SOTALOL HCL 80 MG TAB PO SCH ×2 (06:35→17:28)
[2022-05-14] MEDS: LEVOTHYROXINE SOD 0.125 MG TAB PO SCH (06:35)
[2022-05-14] MEDS: INSULIN -REGULAR HUMAN 50 UNIT/0.5 ML ML SQ SCH ×4 (07:30→22:30)
[2022-05-14] MEDS ORDERED: INFLUENZA VACCINE (for 6+ mo) 0.5 ML DOSE IMVAC ONE (08:00)
[2022-05-14] MEDS ORDERED: LEVOTHYROXINE SOD 0.125 MG TAB PO SCH (09:00)
[2022-05-14] MEDS ORDERED: POTASSIUM CL SA 10 MEQ TAB PO ONE (09:00)
[2022-05-14] MEDS: GABAPENTIN 300 MG CAP PO SCH ×2 (09:55→21:26)
[2022-05-14] MEDS: AMIODARONE HCL 200 MG TAB PO SCH ×2 (09:55→21:26)
[2022-05-14] MEDS: APIXABAN 5 MG TABLET PO SCH ×2 (09:56→21:26)
[2022-05-14] MEDS: FUROSEMIDE 40 MG/4 ML VIAL IV SCH ×2 (09:56→17:28)
[2022-05-14] MEDS: SPIRONOLACTONE 25 MG TABLET PO SCH (09:56)
--- NOTE | 2022-05-14 11:44 | P.PN ---
Subjective Date of Service: 05/14/22 Chief Complaint: CHF exacerbation No acute events since admission. She continues to report shortness of breath and dry cough. She is requesting a as needed cough medicine. She denies any chest pain, palpitations, nausea, or vomiting. Review of Systems 10-point ROS is otherwise unremarkable Respiratory: Cough, Shortness of Breath Neurological: Weakness (Right lower extremity weakness from prior CVA. Improved compared to last admission.), Other (Expressive aphasia, but improved since last admission.) Physical Examination - Vital Signs Temperature: 97.3 F Blood Pressure: 129/75 Pulse: 65 Respirations: 18 Pulse Ox (%): 94 - Physical Exam General: Alert, In no apparent distress, Oriented x3 HEENT: Atraumatic, Mucous membr. moist/pink, EOMI, Sclerae nonicteric Neck: JVD not distended Respiratory: Diminished, Rhonchi/gurgles Cardiovascular: No edema, Regular rate/rhythm, Normal S1 S2, No gallops, No rubs, No murmurs Gastrointestinal: Normal bowel sounds, Soft and benign, Non-distended, No tenderness, No rebound, No guarding Musculoskeletal: No clubbing Neurological: Sensation intact, Cranial nerves 3-12 intact, Other (Mild expressive aphasia appreciated. Right foot drop noted.), Abnormal strength (3/5 strength in RLE, 4/5 strength in RUE. 5/5 strength in LUE/LLE.) - Studies Laboratory Data (last 24 hrs) 05/13/22 17:15: PT 19.6 H, INR 1.78 05/13/22 17:15: WBC 9.40, Hgb 10.5 L, Hct 32.5 L, Plt Count 267 05/13/22 17:15: Sodium 141, Potassium 3.7, BUN 10, Creatinine 0.62, Glucose 115 H, Magnesium 1.9, Total Bilirubin 1.8 H, AST 13 L, ALT 18, Alkaline Phosphatase 97 Microbiology Data (last 24 hrs): 05/13/22 18:45 Blood - Blood Anaerobic Blood Culture - Final Assessment And Plan - Plan # Acute on Chronic Decompensated Diastolic Congestive Heart Failure with Preserved Ejection Fraction - Consult Cardiology - recommendations appreciated - Chest x-ray = "worsening interstitial and airspace disease most likely representing pulmonary edema. Pneumonia less likely." - CT chest angiogram = "Negative for pulmonary embolism. Pulmonary edema with small bilateral pleural effusions." - Transthoracic echocardiogram (04/04/2022) = "1. mild tricuspid regurgitation. 2. mitral annular calcification 3. aortic sclerosis 4. normal left ventricular ejection fraction and size." - NT-Pro BNP = 1,606 (may be falsely low/normal in obesity) - Diuresis with IV furosemide for today - Continue home sotalol, spironlactone - Daily weights - Strict I/O - Cardiac diet, 1.5 L fluid restriction, 2 g Na restriction # Recent Mild-Moderate Left Middle Cerebral Artery Cerebrovascular Accident with associated Petechial Hemorrhage # Bilateral Carotid Artery Stenosis (70 % LICA, 90 % R Carotid Bulb) # Partial Left Basilic Vein Thrombosis - Neurology deficits appear to be improved compared to last admission - Continue home aspirin, apixaban, rosuvastatin - Consulted PT # Coronary Artery Disease s/p CABG # Hypertension # Dyslipidemia - Cardiology consulted - recommendations appreciated - Last admission - recommended outpatient carotid angiography and left heart catheterization - Continue home aspirin, rosuvastatin, sotalol, apixaban # 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 - Continue amiodarone, sotalol, apixaban # Tobacco Use Disorder - Continue nicotine patch # Hypothyroidism - Continue home levothyroxine Toño Willis M.D.
[2022-05-14] MEDS ORDERED: BENZONATATE 100 MG CAP PO PRN (12:22)
--- NOTE | 2022-05-14 16:48 | EKG ---
Test Date: 2022-05-13 Test Time: 17:44:19 Fabric Inspector: BP MEASUREMENT RESULTS: Intervals: Rate: 72 VT: QRSD: 80 QT: 432 QTc: 473 [place]: P: VT: QRS: 76 T: 131 INTERPRETIVE STATEMENTS: Atrial fibrillation Septal infarct, age undetermined Abnormal ECG Compared to ECG 04/21/2022 08:57:26 Myocardial infarct finding now present ST (T wave) deviation no longer present Prolonged QT interval no longer present Electronically Signed On 05-14-22 16:47:27 [employer] by Blas Mcdermott
--- NOTE | 2022-05-14 20:43 | CON ---
Date of Consultation: 05/14/2022 Reason For Consultation: Acute CHF. History Of Present Illness: This is a 71-year-old female with history of diastolic heart failure, hi story of CVA, diabetes, hypertension, atrial fibrillation on chronic anticoagulation, and coronary ar maribeth disease status post CABG who presented to the emergency room with worsening shortness of breath, orthopnea, and lower extremity edema. She was on Lasix, but she was taking it 3 times a week instea d of daily with significant orthopnea. Denies having any chest pain. After diuresis, she is feeling much better. Past Medical History: As outlined above in the HPI. Medications: Refer to reconciliation sheet for detailed list. Allergies: IODINE. Family History: No premature coronary artery disease or cancer. Social History: She does not smoke or drink. Does not use any drugs. Review of Systems: All systems reviewed and they were negative except for mentioned in HPI. Physical Examination: Vital Signs: Temperature is 97.3, pulse 65, breathing at 18, blood pressure 129/75, and saturating 9 8%. General: A pleasant elderly female, in no apparent distress. Head And Neck: Pupils are equal and reactive to light. Intact eye movements. No JVD. No cervical lymphadenopathy. Neck is supple. Thyroid is not enlarged. Lungs: Clear to auscultation bilaterally. No rhonchi, wheezing, or crackles. No accessory muscle u se. Heart: Irregularly irregular. No extra sounds. Abdomen: Soft, nontender. Bowel sounds positive. No organomegaly. No masses or hernia. No rigidi ty or rebound. Extremities: No clubbing or cyanosis. 2+ pitting edema. Skin: No rashes. Neurologic: Alert, awake, and oriented x3. No acute focal deficits appreciated. Investigations: Echo on April 04, 2022 showed normal ejection fraction. Her BUN is 9, creatinine 0.59, and hemoglobin is 9.6. Assessment/recommendation: 1.[id number] diastolic congestive heart failure exacerbation. I agree with diuresis, Lasix 40 mg q.12 hours and the addition of spironolactone. Monitor BUN, creatinine, and electrolytes. Low-s alt diet. 2.Atrial fibrillation. Rate is controlled. However, I see that she is on sotalol and on amiodarone . Recommend to discontinue amiodarone and can increase the Betapace to 80 mg twice a day for better control. If needed, can continue Eliquis. 3.Hypertension. Blood pressure is controlled. 4.Coronary artery disease with history of coronary artery bypass graft. There is no chest pain, and her troponins have been negative. Continue home medications. /LADONNA Voice ID: [id number] Report ID: [id number]
[2022-05-14] MEDS: ROSUVASTATIN 10 MG TAB PO SCH (21:26)
--- NOTE | 2022-05-14 21:55 | RAD REPORT ---
EXAM DESCRIPTION: US - Extrem Venous W Compress Rufus - 05/14/2022 9:48 pm CLINICAL HISTORY: elevated d-dimer Bilateral leg edema and swelling. COMPARISON: No comparisons TECHNIQUE: Real-time sonographic interrogation of the left and right lower extremity deep venous sys tems was performed. FINDINGS: Normal compressibility, flow augmentation, phasic flow and spontaneous flow is identified in both the left and right lower extremity deep venous systems. IMPRESSION: No sonographic evidence of left or right lower extremity deep venous thrombosis.
[2022-05-15 03:41] LABS: Absolute Lymphocytes (CBC) 1.2 K/uL (0.7-4.9); Hematocrit 30.7 % (36.0-45.0); Lymphocytes % 16.6 % (15.3-44.8); MCV 84.9 fL (80-100); MPV 8.3 fL (7.6-11.3); RBC Red Blood Cell Count 3.62 M/uL (3.86-4.86)
[2022-05-15 04:00] LABS: Magnesium 1.8 mg/dL (1.6-2.4); Potassium 3.6 mmol/L (3.5-5.1)
[2022-05-15] MEDS: LEVOTHYROXINE SOD 0.125 MG TAB PO SCH (05:26)
[2022-05-15] MEDS: SOTALOL HCL 80 MG TAB PO SCH ×2 (05:27→16:51)
[2022-05-15] MEDS: INSULIN -REGULAR HUMAN 50 UNIT/0.5 ML ML SQ SCH ×4 (07:30→20:40)
[2022-05-15] MEDS: FUROSEMIDE 40 MG/4 ML VIAL IV SCH ×2 (08:19→16:51)
[2022-05-15] MEDS: GABAPENTIN 300 MG CAP PO SCH ×2 (08:19→21:09)
[2022-05-15] MEDS: ASPIRIN 81 MG CHEWABLE TABLET PO SCH (08:20)
[2022-05-15] MEDS: SPIRONOLACTONE 25 MG TABLET PO SCH (08:20)
[2022-05-15] MEDS: AMIODARONE HCL 200 MG TAB PO SCH ×2 (08:20→21:08)
[2022-05-15] MEDS: APIXABAN 5 MG TABLET PO SCH ×2 (08:20→21:09)
[2022-05-15] MEDS ORDERED: POTASSIUM CL SA 10 MEQ TAB PO ONE (09:00)
[2022-05-15 12:12] LABS: Specific Gravity 1.006 (1.005-1.030); Urine Bacteria <20 /HPF (<20); Urine Bilirubin NEGATIVE (Negative); Urine Blood Trace (Negative); Urine Clarity Clear (Clear); Urine Color Colorless (Yellow); Urine Glucose NEGATIVE (Negative); Urine Mucus Slight /HPF (None Seen); Urine Protein NEGATIVE (Negative); Urine RBC <5 /HPF (None Seen); Urine Urobilinogen Normal (Normal)
--- NOTE | 2022-05-15 20:37 | PN ---
Date of Progress Note: 05/15/2022 Subjective: Seen at bedside. She is breathing much better, lying flat without shortness of breath. Review of Systems: No chest pain, shortness of breath, orthopnea, cough. No nausea, vomiting, diarrhea. She has lower extremity edema. All other systems reviewed and were negative. Physical Examination: Vital Signs: Temperature is 97.6, pulse 64, breathing at 16, blood pressure is 155/63, saturating 10 0%. General: Pleasant elderly female, in no apparent distress. Head and Neck: Pupils are equal, reactive to light. Intact eye movements. No JVD. No cervical. N enrrique is supple. Thyroid is not enlarged. Lungs: Clear to auscultation bilaterally. No rhonchi, wheezing, or crackles. No accessory muscle u se. Heart: Irregularly irregular. No extra sounds. Abdomen: Soft, nontender. Bowel sounds positive. No organomegaly. No masses or hernia. No rigidi ty or rebound. Extremities: No clubbing, cyanosis. Trace edema. Skin: No rash. Neurologic: Alert, awake, oriented x3. No acute focal deficits appreciated. Lymph nodes: No cervical adenopathy. Investigations: BUN 15, creatinine 0.61, and hemoglobin is 10.2. Assessment/recommendations: 1.Acute on chronic diastolic heart failure exacerbation, improving. Continue 1 more day of IV Lasix , switch tomorrow to oral Lasix. Low-salt diet and daily body weight. 2.Atrial fibrillation, rate is controlled on anticoagulation. Continue current management. 3.Hypertension. Blood pressure is controlled. SR/MODL Voice ID: [id number] Report ID: [id number]
[2022-05-15] MEDS: ROSUVASTATIN 10 MG TAB PO SCH (21:08)
[2022-05-15] MEDS: MELATONIN 5 MG TABLET PO PRN (21:11)
[2022-05-16 04:19] LABS: Potassium 3.8 mmol/L (3.5-5.1)
[2022-05-16] MEDS: SOTALOL HCL 80 MG TAB PO SCH (05:41)
[2022-05-16] MEDS: LEVOTHYROXINE SOD 0.125 MG TAB PO SCH (05:42)
[2022-05-16] MEDS: INSULIN -REGULAR HUMAN 50 UNIT/0.5 ML ML SQ SCH ×2 (07:30→12:10)
[2022-05-16] MEDS: AMIODARONE HCL 200 MG TAB PO SCH (08:21)
[2022-05-16] MEDS: FUROSEMIDE 40 MG/4 ML VIAL IV SCH (08:21)
[2022-05-16] MEDS: GABAPENTIN 300 MG CAP PO SCH (08:21)
[2022-05-16] MEDS: ASPIRIN 81 MG CHEWABLE TABLET PO SCH (08:21)
[2022-05-16] MEDS: SPIRONOLACTONE 25 MG TABLET PO SCH (08:22)
[2022-05-16] MEDS: APIXABAN 5 MG TABLET PO SCH (08:22)
[2022-05-16] MEDS ORDERED: POTASSIUM CL SA 10 MEQ TAB PO ONE (09:00)
[2022-05-16 10:17] VITALS: O2SAT 99
[2022-05-16 12:27] VITALS: BP 128/60; TEMP 97.4
--- NOTE | 2022-05-16 16:13 | PN ---
Date of Progress Note: 05/16/2022 Subjective: Seen by bedside. Doing clinically much better. Review of Systems: No chest pain, shortness of breath, orthopnea, cough. No nausea, vomiting, diarrhea. All other syst ems reviewed and they were negative. Physical Examination: Vital Signs: Reviewed. Head and Neck: Pupils are equal, reactive to light. Intact eye movements. No JVD. No cervical lym phadenopathy. Neck is supple. Thyroid is not enlarged. Lungs: Clear to auscultation bilaterally. No rhonchi, wheezing, or crackles. No accessory muscle u se. Heart: Regular rate and rhythm. No extra sounds. Abdomen: Soft, nontender. Bowel sounds positive. No organomegaly. No masses or hernia. No rigidi ty or rebound. Extremities: No clubbing or cyanosis. Intact pulses. Skin: No rash. Neurologic: Alert, awake, oriented x3. No acute focal deficits appreciated. Investigations: Hemoglobin 10.2, BUN is 19, creatinine 0.73. Assessment And Recommendations: 1.Acute on chronic diastolic heart failure exacerbation, improved significantly on Lasix. Switch La six to oral 40 mg twice a day and the patient can be released. Follow up as an outpatient. 2.Atrial fibrillation, controlled. Continue sotalol and Eliquis. 3.Hypertension. Blood pressure is controlled. Follow up with me in the office post discharge jadon lin 2 weeks. SR/MODL Voice ID: [id number] Report ID: [id number]
--- NOTE | 2022-05-22 11:12 | P.PN ---
Date of Service: 05/15/22 Subjective Patient continues to improve. Clinical symptoms are much better. Will wean her off the oxygen. Will check to see if she qualifies for home oxygen. Anticipate discharge over the next 24-48 hours. Physical Examination - Vital Signs Reviewed - Physical Exam General: Alert, In no apparent distress, Oriented x3 Respiratory: Diminished, Rhonchi/gurgles Cardiovascular: No edema, Regular rate/rhythm, Normal S1 S2, No gallops, No rubs, No murmurs Gastrointestinal: Normal bowel sounds, Soft and benign, Non-distended, No te nderness, No rebound, No guarding Musculoskeletal: No clubbing Neurological: No focal deficits Assessment And Plan - Assessment # Acute on Chronic Decompensated Diastolic Congestive Heart Failure with Preserved Ejection Fraction # Recent Mild-Moderate Left Middle Cerebral Artery Cerebrovascular Accident with associated Petechial Hemorrhage # Bilateral Carotid Artery Stenosis (70 % LICA, 90 % R Carotid Bulb) # Partial Left Basilic Vein Thrombosis # Coronary Artery Disease s/p CABG # Hypertension # Dyslipidemia # 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
--- NOTE | 2022-05-22 11:14 | P.DS ---
Discharge Date: 05/16/22 Disposition: ROUTINE DISCHARGE Discharge Condition: GOOD Reason for Admission: CHF exacerbation Consultations: Cardiology Brief History of Present Illness: Pt is a 71-year-old female with history of chronic diastolic congestive heart failure, recent left MCA CVA with resulting expressive aphasia, right-sided weakness, right foot drop, partial left basilic vein thrombosis, CAD status post CABG, hypertension, dyslipidemia, insulin-dependent diabetes, paroxysmal A. fib on Eliquis, hypothyroidism presents to the emergency department for shortness of breath, hypoxia. Her reports that after being discharged to follow-up with her PCP Dr. Zurita her medications were adjusted her spironolactone was discharged and she was told that she only needs to take her Lasix probably 3 times a week where she has significant swelling in her lower extremities she has not taken her Lasix for the past 2 days and has been taken off of spironolactone completely. She was very tired, short of breath at home her checked her oxygen saturation with a pulse ox and noted it was 80% on room air and referred to the emergency department for further evaluation. She was noted to be hypoxic at 80 to 85% room air in the emergency department her labs were significant for elevated BNP 1606 elevated D-dimer 1671 chest x-ray shows worsening interstitial and airspace disease most likely representing pulmonary edema. Pneumonia less likely. Procalcitonin was added which was negative. I suspect this is related to CHF, also need to rule out PE, D-dimer was elevated although patient does have a known partial left basilic vein thrombosis. CT PE protocol ordered. She is given IV Lasix in ED is diuresing well. Vital Signs/Physical Exam: Temp Pulse Resp BP Pulse Ox 97.4 F 79 16 128/60 93 05/16/22 12:00 05/16/22 12:00 05/16/22 12:00 05/16/22 12:00 05/16/22 12:00 General: Alert, In no apparent distress, Oriented x3 Laboratory Data at Discharge: WBC 7.40 K/uL (4.3-10.9) 05/15/22 02:42 Hgb 10.2 g/dL (12.0-15.0) L 05/15/22 02:42 Hct 30.7 % (36.0-45.0) L 05/15/22 02:42 Plt Count 259 K/uL (152-406) 05/15/22 02:42 PT 19.6 SECONDS (9.5-12.5) H 05/13/22 17:15 INR 1.78 05/13/22 17:15 Sodium 138 mmol/L (136-145) 05/16/22 03:27 Potassium 3.8 mmol/L (3.5-5.1) 05/16/22 03:27 BUN 19 mg/dL (7-18) H 05/16/22 03:27 Creatinine 0.73 mg/dL (0.55-1.02) 05/16/22 03:27 Glucose 145 mg/dL (74-106) H 05/16/22 03:27 Magnesium 1.8 mg/dL (1.6-2.4) 05/15/22 02:42 Total Bilirubin 2.0 mg/dL (0.2-1.0) H 05/14/22 03:39 AST 12 U/L (15-37) L 05/14/22 03:39 ALT 16 U/L (13-56) 05/14/22 03:39 Alkaline Phosphatase 94 U/L (45-117) 05/14/22 03:39 Home Medications: Amlodipine [Norvasc*] 10 mg PO DAILY 04/19/22 Apixaban [Eliquis] 5 mg PO BID 04/19/22 Duloxetine [Cymbalta *] 20 mg PO BEDTIME 04/19/22 Folic Acid 1 mg PO DAILY 04/19/22 Gabapentin [Neurontin] 900 mg PO BEDTIME PRN PRN 04/19/22 Levothyroxine [Synthroid*] 2 tab PO DAILY 04/19/22 Melatonin 10 mg PO BEDTIME PRN 04/19/22 Rosuvastatin Calcium [Crestor] 20 mg PO BEDTIME 04/19/22 Furosemide [Lasix] 40 mg PO DAILY 05/02/22 Insulin 70/30 NPH/Reg Human [Novolin 70/30*] 30 unit SQ DAILY WITH BREAKFAST #10 ml 05/02/22 Aspirin 81 mg PO DAILY 05/13/22 Cyanocobalamin (Vitamin B-12) [Vitamin B12] 5,000 mcg PO DAILY 05/13/22 Mv-Mn/Iron/Folic Acid/Herb 190 [Vitamin D3 Complete Caplet] 1 tab PO DAILY 05/13/22 Benzonatate [Tessalon Perle*] 100 mg PO TID PRN #20 cap 05/16/22 Sotalol HCl [Betapace*] 80 mg PO BID 6AM 6PM #60 tab 05/16/22 New Medications: Sotalol HCl [Betapace*] 80 mg PO BID 6AM 6PM #60 tab Benzonatate [Tessalon Perle*] 100 mg PO TID PRN #20 cap PRN Reason: Cough Physician Discharge Instructions: -DC IV and DC home -Follow-up with PCP in 1 to 2 weeks -Follow-up with Cardiology and Neurologist in 1 to 2 weeks -Please call Dr. Mosley at [phone] if any questions regarding hospital stay -Please call nursing station at [phone] if any nursing or medication questions -Return to the emergency room if symptoms worsen Diet: AHA Activity: Fall precautions Followup: Yusef Zurita MD [Primary Care Provider] - (PLEASE CALL TO SCHEDULE A FOLLOW UP APPOINTMENT IN 1-2 WEEKS)
== END 2022-05-16 16:24 | disposition home or self-care (01) | DRG 291 ==
LOC: ER 16:10 → ERHOLD 18:56 → 4TH 20:19
PROVIDERS: ADMIT Internal Medicine; ATTEND Hospitalist
DX: I13.2 Hypertensive heart and chronic kidney disease with heart failure and with stage 5 chronic kidney disease, or end stage renal disease (principal); I50.33 Acute on chronic diastolic (congestive) heart failure; N18.6 End stage renal disease; J96.01 Acute respiratory failure with hypoxia; I69.351 Hemiplegia and hemiparesis following cerebral infarction affecting right dominant side; I82.612 Acute embolism and thrombosis of superficial veins of left upper extremity; E11.22 Type 2 diabetes mellitus with diabetic chronic kidney disease; E11.40 Type 2 diabetes mellitus with diabetic neuropathy, unspecified; I48.0 Paroxysmal atrial fibrillation; I08.2 Rheumatic disorders of both aortic and tricuspid valves; E03.9 Hypothyroidism, unspecified; I65.23 Occlusion and stenosis of bilateral carotid arteries; E78.5 Hyperlipidemia, unspecified; I69.320 Aphasia following cerebral infarction; I25.10 Atherosclerotic heart disease of native coronary artery without angina pectoris; Z95.1 Presence of aortocoronary bypass graft; Z95.5 Presence of coronary angioplasty implant and graft; Z79.4 Long term (current) use of insulin; Z90.49 Acquired absence of other specified parts of digestive tract; Z79.82 Long term (current) use of aspirin; Z79.01 Long term (current) use of anticoagulants; Z79.899 Other long term (current) drug therapy; Z79.890 Hormone replacement therapy; Z20.822 Contact with and (suspected) exposure to COVID-19
CPT/HCPCS: 0241U; 36415; 51702; 71045; 71275; 80048; 80053; 80076; 81001; 82947; 83605; 83735; 83880; 84145; 84484; 85025; 85379; 85610; 87040; 87205; 93005; 93970; 96374; 97116; 97161; 97530; 99285; J1815; J1940; Q9967

== ENCOUNTER 2022-05-22 01:52 | Inpatient (IN) | payer OTHER ==
--- OUTSIDE RECORDS SUMMARY | 2022-05-22 02:01 | XMS REPORT | Continuity of Care Document ---
:1950 Author Organization [facility] [place] t Address [address] [place] [address] Dr. [address]. [address] [place] [address] Care Team Providers Name Role Phone No MD, Pcp 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 23:16:58 l disease disease Jaiden (disorder) (disorder) Active Problem 01/19/2019 Medical Group [...] Medical C enter Social History 2019-01-17 2019-01-17 [facility] 19:17 19:17:26 Tobacco Comment 2018-12-25 2018-12-25 quit november 2018 Unive rsity of 00:00:00 00:00:00 [facility] Cigarettes smoked 2018-11-29 2018-11-[address] [facility] current (pack per 00:00:00 00:00:00 [facility] Center day) - Reported Cigarette 2018-11-29 2018-11-[address] [facility] pack-years 00:00:00 00:00:00 [facility] Tobacco use and 2018-11-29 2018-11-[address] [facility] exposure 00:00:00 00:00:00 [facility] Alcohol intake 2018-11-29 2018-11-[address] [facility] 00:00:00 00:00:00 non-drinker of Medical Ce nter alcohol (finding) History SDOH 2018-11-29 2018-11-[address] [facility] Alcohol Frequency 00:00:00 00:00:00 [facility] Sex Assigned At [address] [facility] 00:00:00 00:00:00 [facility] Smoking Status Start Date Stop Date Source Former smoker 2019-01-20 00:00:00 2019-01-20 00:00:00 [facility] Current some 2016-04-05 00:00:00 [facility] smoker [facility] Medications Ordered Filled Start Stop Current Ordering Indication Dosage Frequency Signature Comments Components Source Medication Medication Date Date Medication? Clinician (SIG) Name Name nebivolol Yes 10 mg = 1 Mem oria 10 MG Oral 9-13 tab, PO, l Tablet 19:22: Daily, # [place] [Bystolic] 00 30 tab, 0 Refill(s) Famotidine Yes 20 mg = 1 Me moria 20 MG Oral 9-13 tab, PO, l Tablet 19:22: PRN, 0 [place] 00 Refill(s) levothyroxi Yes 25 Memori a [...] tab, PO, l Tablet 19:22: Daily, 0 [place] 00 Refill(s) zinc 2019-0 Yes 220 mg = 1 Memoria sulfate 220 9-13 tab, PO, l mg oral 19:22: Daily, # Isidro n tablet 00 100 tab, 0 Refill(s) Nephro-Coleman 2019-0 Yes 1 tab, PO, Memoria 9-13 Daily, 0 l 19:22: Refill(s) [place] rosuvastati 2019-0 Yes 20 mg = 1 [...] 0 l 19:22: Refill(s) Jaiden 00 nebivolol 2019-0 Yes 10 mg = 1 Mem oria 10 MG Oral 9-13 tab, PO, l Tablet 19:22: Daily, Shaan Hwang [Bystolic] 00 30 tab, 0 Refill(s) Famotidine 2019-0 Yes 20 mg = 1 Me moria 20 MG Oral 9-13 tab, PO, l Tablet 19:22: PRN, 0 [place] 00 Refill(s) levothyroxi 2019-0 Yes 25 Memori a ne 25 mcg 9-13 microgram l (0.025 mg) 19:22: = 1 tab, Her floyd oral tablet 00 PO, Daily, # 30 tab, 0 Refill(s) Amlodipine 2019-0 Yes 10 mg, PO, M emoria 9-13 Daily, 0 l 19:22: Refill(s) [place] 00 apixaban 5 2019-0 Yes 5 mg, PO, Me moria MG Oral 9-13 Q12H, 0 l Tablet 19:22: Refill(s) Isidro lin [Eliquis] 00 gabapentin Yes 600 mg = 1 M emoria 600 MG Oral 9-13 tab, PO, l Tablet 19:22: Daily, 0 [place] 00 Refill(s) zinc Yes 220 mg = 1 Memoria sulfate 220 9-13 tab, PO, l mg oral 19:22: Daily, # Isidro n tablet 00 100 tab, 0 Refill(s) Nephro-Coleman Yes 1 tab, PO, Memoria 9-13 Daily, 0 l 19:22: Refill(s) [place] 00 rosuvastati Yes 20 mg = 1 [...] moria 9- Bedtime, 0 l 19:22: Refill(s) [place] 00 clopidogrel Yes 75mg Take 75 mg Univers (PLAVIX) 75 8-23 by mouth ity of mg tablet 22:51: daily. [place] 29 Medical Branch CARVEDILOL Yes Take by [facility] ers (COREG 8- mouth. ity of [...] 8-23 by mouth. ity of tablet 22:51: [place] [address] Medical Branch clopidogrel Yes 75mg Take 75 mg Univers (PLAVIX) 75 8-23 by mouth ity of mg tablet 22:51: daily. [place] [address] Medical Branch CARVEDILOL Yes Take by Univ [...] 8-23 by mouth. ity of tablet 22:51: [place] [address] Medical Branch clopidogrel Yes 75mg Take 75 mg Univers (PLAVIX) 75 8-23 by mouth ity of mg tablet 22:51: daily. [place] [address] Medical Branch CARVEDILOL Yes Take by Univ [...] mouth ity of mg tablet 22:51: daily. [place] [facility] CARVEDILOL Yes Take by Univ [...] 8-23 by mouth. ity of tablet 22:51: [place] 29 Medical Branch clopidogrel 0 Yes 75mg Take 75 mg Univers (PLAVIX) 75 8-23 by mouth ity of mg tablet 22:51: daily. [place] 29 Medical Branch CARVEDILOL Yes Take by [...] 8-23 by mouth. ity of tablet 22:51: [place] [address] Medical Branch clopidogrel Yes 75mg Take 75 mg Univers (PLAVIX) 75 8-23 by mouth ity of mg tablet 22:51: daily. [place] [address] Medical Branch CARVEDILOL Yes Take by Univ [...] 8-23 by mouth. ity of tablet 22:51: [place] [address] Medical Branch clopidogrel Yes 75mg Take 75 mg Univers (PLAVIX) 75 8-23 by mouth ity of mg tablet 22:51: daily. [place] [facility] CARVEDILOL Yes Take by Univ [...] mouth ity of mg tablet 22:51: daily. [place] [facility] CARVEDILOL Yes Take by Univ [...] 8-23 by mouth. ity of tablet 22:51: [place] [address] Medical Branch clopidogrel Yes 75mg Take 75 mg Univers (PLAVIX) 75 8-23 by mouth ity of mg tablet 22:51: daily. [place] [address] Medical Branch CARVEDILOL Yes Take by Univ [...] 8-23 by mouth. ity of tablet 22:51: [place] [address] Medical Branch clopidogrel Yes 75mg Take 75 mg Univers (PLAVIX) 75 8-23 by mouth ity of mg tablet 22:51: daily. [place] [address] Medical Branch CARVEDILOL Yes Take by Univ [...] 8-23 by mouth. ity of tablet 22:51: [place] [address] Medical Branch clopidogrel Yes 75mg Take 75 mg Univers (PLAVIX) 75 8-23 by mouth ity of mg tablet 22:51: daily. [place] [address] Medical Branch CARVEDILOL Yes Take by Univ [...] 8-23 by mouth. ity of tablet 22:51: [place] [address] Medical Branch clopidogrel Yes 75mg Take 75 mg Univers (PLAVIX) 75 8-23 by mouth ity of mg tablet 22:51: daily. [place] [address] Medical Branch CARVEDILOL 2019-0 Yes Take by [...] s mg 00 First dose Medical on [facility] Branch 12/26/18 at 0900, Until Discontinu ed, Routine clopidogrel 2019-0 Yes 75mg 75 mg, Univ ers (PLAVIX) 12-26 Oral, ity of tablet 75 14:00: DAILY, [place] mg 00 First dose Medical on [facility] Branch 12/26/18 at 0900, Until Discontinu ed, Routine aspirin 2019-0 Yes 325mg 325 mg, Univer s tablet 325 12-26 Oral, ity of mg 14:00: DAILY, [place] 00 First dose Medical on [facility] Branch 12/26/18 at 0900, Until Discontinu ed, Routine amLODIPine 2019-0 Yes 10mg 10 mg, Unive rs (NORVASC) 12-26 Oral, ity of tablet 10 14:00: DAILY, [place] mg 00 First dose Medical on [facility] Branch 12/26/18 at 0900, Until Discontinu ed, Routine insulin 2019-0 Yes 7U 7 Units, Univer s aspart 12-26 Subcutaneo ity of RAPID 13:00: us, TID [place] (NOVOLOG 00 MEALS, Medical U-100 First dose Branch INSULIN on [facility] ASPART) 12/26/18 at injection 7 0800, Units Until Discontinu ed, Routine insulin 2019-0 Yes 17U 17 Units, Unive rs glargine 12-26 Subcutaneo ity o f (LANTUS 13:00: us, BID, [place] U-100) 00 First dose Medical injection on [facility] Branch 17 Units 12/26/18 at 0800, Until Discontinu ed, Routine famotidine 2019-0 Yes 20mg 20 mg, Unive rs (PEPCID AC) 12-26 Oral, BID, it y of tablet 20 13:00: First dose [place] mg 00 on [facility] Medical 12/26/18 at Branch 0800, Until Discontinu ed, Routine apixaban 2019-0 Yes 5mg 5 mg, Univers (ELIQUIS) 12-26 Oral, BID, ity of tablet 5 mg 13:00: First dose [place] 00 on [facility] Medical 12/26/18 at Branch 0800, Until Discontinu ed, Routine levothyroxi 2019-0 Yes 25ug 25 mcg, Uni vers ne 12-26 Oral, ity of (SYNTHROID) 11:00: QAM-0600, [place] tablet 25 00 First dose Medi felipe mcg on [facility] Branch 12/26/18 at 0600, Until Discontinu ed, Routine potassium 2019-0 2019- No 40meq 40 mEq, IV Univers acetate 40 12-26 Piggyback, it y of mEq in NaCl 05:30: 06:01 ONCE, 1 [place] 0.9% (NS) 00 :00 dose, [facility] Medic al piggyback 12/26/18 at Bran ch 0030, 250 mL melatonin 2019-0 Yes 6mg 6 mg, Univers (MELATIN) 12-26 Oral, QHS, ity of tablet 6 mg 05:00: First dose [place] 00 on [facility] 12/26/18 at Branch 0000, Until Discontinu ed gabapentin 2019-0 Yes 300mg 300 mg, Uni vers (NEURONTIN) 12-26 Oral, TID, it y of capsule 300 05:00: First dose [place] mg 00 on [facility] 12/26/18 at Branch 0000, Until Discontinu ed, Routine acetaminoph 2019-0 Yes 650mg 650 mg, Un [place] en 12-26 Oral, ity of (TYLENOL) 04:50: Q6HPRN, [place] tablet 650 35 Starting Medic al mg [facility] 12/25/18 at 2350, Until Discontinu ed, BRUCE, Pain (scale 4-6) KCL 2018- 2019- No 40meq 40 mEq, Univers (KLOR-CON 12-26 Oral, ity of M20) tablet 04:30: 05:58 ONCE, 1 [place] 40 mEq 00 :00 dose, [facility] 12/25/18 at Branch 2330, Routine NaCl 0.9% 2018-0 Yes 1000mL at 42 Unive rs (NS) IV 8-22 mL/hr, IV ity of infusion 02:00: Infusion, [place] 1,000 mL 00 CONTINUOUS Medic al , Starting Branch [facility] 12/25/18 at 2100, Until Discontinu ed, Routine Sliding 2018-0 Yes Subcutaneo Univ ers Scale 8-22 us, TID ity of Insulin - 02:00: MEALS+HS, Aditya as Aspart 00 First dose Medical (NOVOLOG) + on [facility] 12/25/18 at Testing 2100, Until Discontinu ed, Routine rosuvastati 2019-0 Yes 20mg 20 mg, Univ ers n (CRESTOR) 12-26 Oral, QHS, it y of tablet 20 02:00: First dose [place] mg 00 on [facility] 12/25/18 at Branch 2100, Until Discontinu ed, Routine rosuvastati 2019-0 Yes 20mg Take 20 mg Univers n 20 mg 8-20 by mouth. ity of tablet 19:18: [address] rosuvastati 2019-0 Yes 20mg Take 20 mg Univers n 20 mg 8-20 by mouth. ity of tablet 19:18: [address] rosuvastati 2019-0 Yes 20mg Take 20 mg Univers n 20 mg 8-20 by mouth. ity of tablet 19:18: [place] 32 Medical Branch clopidogrel 0 Yes 75mg Take 75 mg Univers (PLAVIX) 75 8-20 by mouth ity of mg tablet 19:14: daily. [place] 31 Medical Branch CARVEDILOL Yes Take by [...] mouth ity of mg tablet 19:14: daily. [place] [address] Medical Branch CARVEDILOL Yes Take by Univ [...] mouth ity of mg tablet 19:14: daily. [place] 31 Medical Branch CARVEDILOL Yes Take by [...] 100 mg 8-12 ity of capsule 00:00: [place] [facility] NEURONTIN Yes Univers 100 mg 8-12 ity of capsule 00:00: [place] [facility] NEURONTIN 2018-0 Yes Univers 100 mg 8-12 ity of capsule 00:00: [place] [facility] NEURONTIN 2018-0 Yes Univers 100 mg 8-12 ity of capsule 00:00: [place] [facility] NEURONTIN 2018-0 Yes Univers 100 mg 8-12 ity of capsule 00:00: [place] [facility] NEURONTIN 2018-0 Yes Univers 100 mg 8-12 ity of capsule 00:00: [place] [facility] NEURONTIN 2018-0 Yes Univers 100 mg 8-12 ity of capsule 00:00: [place] [facility] NEURONTIN 2018-0 Yes Univers 100 mg 8-12 ity of capsule 00:00: [place] [facility] Branch NEURONTIN 2019-0 Yes Univers 100 mg 8-12 ity of capsule 00:00: [place] [facility] Branch NEURONTIN 2019-0 Yes Univers 100 mg 8-12 ity of capsule 00:00: [place] [facility] Branch NEURONTIN 2019-0 Yes Univers 100 mg 8-12 ity of capsule 00:00: [place] [facility] Branch NEURONTIN 2019-0 Yes Univers 100 mg 8-12 ity of capsule 00:00: [place] [facility] Branch NEURONTIN 2019-0 Yes Univers 100 mg 8-12 ity of capsule 00:00: [place] [facility] folic 2019-0 Yes 1{tbl} QD [...] [facility]-multiv 8-02 tablet by Lisa toth itamins 00:00: mouth Medical (NEPHRO-VIT 00 daily. Center E) 0.8 mg Tab tablet amLODIPine 2019-0 2020- No 10mg Take 10 mg Univers 10 mg 12-06 0802 by mouth. ity of tablet 00:00: 04:59 [place] 00 :00 Medical Branch levothyroxi 2019-0 2020- No 25ug Take 25 Un [place] ne 25 mcg 8 08- mcg by ity of tablet 00:00: 04:59 mouth. [place] 00 :00 Medical Branch amLODIPine 2019-0 2020- No 10mg Take 10 mg Univers 10 mg 8 08- by mouth. ity of tablet 00:00: 04:59 [place] 00 :00 Medical Branch levothyroxi 2019-0 2020- No 25ug Take 25 Un [place] ne 25 mcg 8 08- mcg by ity of tablet 00:00: 04:59 mouth. [place] 00 :00 Medical Branch amLODIPine 2019-0 2020- No 10mg Take 10 mg Univers 10 mg 8 0802 by mouth. ity of tablet 00:00: 04:59 [place] 00 :00 Medical Branch levothyroxi 2019-0 2020- No 25ug Take 25 Un [place] ne 25 mcg 8 08-02 mcg by ity of tablet 00:00: 04:59 mouth. [place] 00 :00 Medical Branch amLODIPine 2019-0 2020- No 10mg Take 10 mg Univers 10 mg 8 08-02 by mouth. ity of tablet 00:00: 04:59 [place] 00 :00 Medical Branch levothyroxi 2019-0 2020- No 25ug Take 25 Un [place] ne 25 mcg 8 08-02 mcg by ity of tablet 00:00: 04:59 mouth. [place] 00 :00 Medical Branch amLODIPine 2019-0 2020- No 10mg Take 10 mg Univers 10 mg 8 08-02 by mouth. ity of tablet 00:00: 04:59 [place] 00 :00 Medical Branch levothyroxi 2019-0 2020- No 25ug Take 25 Un [place] ne 25 mcg 8- 08-02 mcg by ity of tablet 00:00: 04:59 mouth. [place] 00 :00 Medical Branch amLODIPine 2019-0 2020- No 10mg Take 10 mg Univers 10 mg 8 08-02 by mouth. ity of tablet 00:00: 04:59 [place] 00 :00 Medical Branch levothyroxi 2019-0 2020- No 25ug Take 25 Un [place] ne 25 mcg 8- 08-02 mcg by ity of tablet 00:00: 04:59 mouth. [place] 00 :00 Medical Branch amLODIPine 2019-0 2020- No 10mg Take 10 mg Univers 10 mg 8- 08-02 by mouth. ity of tablet 00:00: 04:59 [place] 00 :00 Medical Branch levothyroxi 2019-0 2020- No 25ug Take 25 Un [place] ne 25 mcg 8- 08-02 mcg by ity of tablet 00:00: 04:59 mouth. [place] 00 :00 Medical Branch amLODIPine 2019-0 2020- No 10mg Take 10 mg Univers 10 mg 8- 08-02 by mouth. ity of tablet 00:00: 04:59 [place] 00 :00 Medical Branch levothyroxi 2019-0 2020- No 25ug Take 25 Un [place] ne 25 mcg 8- 08-02 mcg by ity of tablet 00:00: 04:59 mouth. [place] 00 :00 Medical Branch amLODIPine 2019-0 2020- No 10mg Take 10 mg Univers 10 mg 8- 08-02 by mouth. ity of tablet 00:00: 04:59 [place] 00 :00 Medical Branch levothyroxi 2019-0 2020- No 25ug Take 25 Un [place] ne 25 mcg 8- 08-02 mcg by ity of tablet 00:00: 04:59 mouth. [place] 00 :00 Medical Branch amLODIPine 2019-0 2020- No 10mg Take 10 mg Univers 10 mg 8- 08-02 by mouth. ity of tablet 00:00: 04:59 [place] 00 :00 Medical Branch levothyroxi 2019-0 2020- No 25ug Take 25 Un [place] ne 25 mcg 8-02 08-02 mcg by ity of tablet 00:00: 04:59 mouth. [place] 00 :00 Medical Branch amLODIPine 2019-0 2020- No 10mg Take 10 mg Univers 10 mg 8-02 08-02 by mouth. ity of tablet 00:00: 04:59 [place] 00 :00 Medical Branch levothyroxi 2019-0 2020- No 25ug Take 25 Un [place] ne 25 mcg 8-02 08-02 mcg by ity of tablet 00:00: 04:59 mouth. [place] 00 :00 Medical Branch amLODIPine 2018-0 2020- No 10mg Take 10 mg Univers 10 mg 12-06 by mouth. ity of tablet 00:00: 04:59 [place] 00 :00 Medical Branch levothyroxi 2018-0 2020- No 25ug Take 25 Un [place] ne 25 mcg 12-06 mcg by ity of tablet 00:00: 04:59 mouth. [place] 00 :00 Medical Branch amLODIPine 2018-0 2020- No 10mg Take 10 mg Univers 10 mg 12-06 by mouth. ity of tablet 00:00: 04:59 [place] 00 :00 Medical Branch levothyroxi 2018- 2020- No 25ug Take 25 Un [place] ne 25 mcg 12-06 mcg by ity of tablet 00:00: 04:59 mouth. [place] 00 :00 Medical Branch cholecalcif Yes [id number] Q7D Take [facility], 12-05 25,000 [facility] vitamin D3, 17:42: Units by Me dical 50,000 unit 48 mouth once Ce nter Tab a week. zolpidem Yes 10mg Take [address] (AMBIEN) 10 12-05 by mouth Luke s mg tablet 17:42: every Medical 48 night as Center needed for Insomnia. rosuvastati Yes 20mg QD Take [address] n (CRESTOR) 12-05 by mouth Luke s 20 MG 17:42: daily. Medical tablet 48 Center traMADol Yes 50mg Take [address] (ULTRAM) 50 12-05 by mouth Luke s mg tablet 17:42: every 6 Medic al 48 (six) Center hours as needed for Pain. clopidogrel 2019 Yes 75mg QD Take [address] (PLAVIX) 75 12-05 by mouth Luke s mg tablet 17:42: daily. Medica l 48 Center cholecalcif Yes [id number] Q7D Take [facility], - 25,000 [facility] vitamin D3, 17:42: Units by Me dical 50,000 unit 48 mouth once Ce nter Tab a week. zolpidem 2019 Yes 10mg Take [address] (AMBIEN) 10 12-05 by mouth Luke s mg tablet 17:42: [...] mg tablet 17:42: daily. Medica l 48 [place] cholecalcif 20190 Yes [id number] Q7D Take [facility], 8- 25,000 [...] Luke s mg tablet 17:42: daily. Medica [address] cholecalcif 20190 Yes [id number] Q7D Take [facility], 8- 25,000 [...] mouth Luke s mg tablet 17:42: daily. [address] cholecalcif [address]90 Yes [id number] Q7D Take [facility], 8- 25,000 [facility] vitamin D3, 17:42: Units by Me dical 50,000 unit 48 mouth once Ce nter Tab a week. zolpidem 2019-0 Yes 10mg Take [address] (AMBIEN) 10 8-01 by mouth Luke s mg tablet 17:42: every Medical 48 night as Center needed for Insomnia. rosuvastati 2018-0 Yes 20mg QD Take [address] n (CRESTOR) 8-01 by mouth Luke s 20 MG 17:42: daily. Medical tablet [address] [place] [address] traMADol 0 Yes 50mg Take [address] (ULTRAM) 50 8-01 by mouth Luke s mg tablet 17:42: every 6 Medic al 48 (six) Center hours as needed for Pain. clopidogrel 0 Yes 75mg QD Take [address] (PLAVIX) 75 8-01 by mouth Luke s mg tablet 17:42: daily. [address] cholecalcif 0 Yes [id number] Q7D Take [facility], 8- 25,000 [...] 20 MG 17:42: daily. Medical tablet 48 [place] traMADol 2019-0 Yes 50mg Take [address] (ULTRAM) 50 8-01 by mouth Luke s mg tablet 17:42: every 6 Medic al 48 (six) Center hours as needed for Pain. clopidogrel 2019-0 Yes 75mg QD Take [address] (PLAVIX) 75 8-01 by mouth Luke s mg tablet 17:42: daily. [address] cholecalcif 0 Yes [id number] Q7D Take [facility], 12-05 25,000 [facility] vitamin D3, 17:42: Units by Me dical 50,000 unit 48 mouth once Ce nter Tab a week. zolpidem 20190 Yes 10mg Take [address] (AMBIEN) 10 8 by mouth Luke s mg tablet 17:42: every Medical 48 night as Center needed for Insomnia. rosuvastati Yes 20mg QD Take [address] n (CRESTOR) 8 by mouth Luke s 20 MG 17:42: daily. Medical tablet 48 Center traMADol 0 Yes 50mg Take [address] (ULTRAM) 50 12-05 by mouth Luke s mg tablet 17:42: every 6 Medic al 48 (six) Center hours as needed for Pain. clopidogrel Yes 75mg QD Take [address] (PLAVIX) 75 12-05 by mouth Luke s mg tablet 17:42: daily. [address] cholecalcif 0 Yes [id number] Q7D Take [facility], 12-05 25,000 [facility] vitamin D3, 17:42: Units by Me dical 50,000 unit 48 mouth once Ce nter Tab a week. zolpidem 0 Yes 10mg Take [address] (AMBIEN) 10 12-05 by mouth Luke s mg tablet 17:42: every Medical 48 night as Center needed for Insomnia. rosuvastati 0 Yes 20mg QD Take [address] n (CRESTOR) 12-05 by mouth Luke s 20 MG 17:42: daily. Medical tablet 48 Center traMADol 2019-0 Yes 50mg Take [address] (ULTRAM) 50 12-05 by mouth Luke s mg tablet 17:42: every 6 Medic al 48 (six) Center hours as needed for Pain. clopidogrel 2018-0 Yes 75mg QD Take [address] (PLAVIX) 75 12-05 by mouth Luke s mg tablet 17:42: daily. [address] apixaban 5 Yes 5mg Take 5 mg Un [place] mg tablet 8-01 by mouth. ity o f 00:00: [facility] Branch famotidine 2019-0 Yes 20mg Take 20 mg U nivers 20 mg 8-01 by mouth. ity of tablet 00:00: [facility] Branch Melatonin 5 2019-0 Yes 5mg Take 5 mg U nivers mg tablet 8-01 by mouth. ity o f 00:00: [facility] Branch apixaban 5 2019-0 Yes 5mg Take 5 mg Un [place] mg tablet 8-01 by mouth. ity o f 00:00: [facility] Branch famotidine 2019-0 Yes 20mg Take 20 mg U nivers 20 mg 8-01 by mouth. ity of tablet 00:00: [facility] Melatonin 5 2019-0 Yes 5mg Take 5 mg U nivers mg tablet 8-01 by mouth. ity o f 00:00: [facility] apixaban 5 2019-0 Yes 5mg Take 5 mg Un [place] mg tablet 8-01 by mouth. ity o f 00:00: [facility] famotidine 2019-0 Yes 20mg Take 20 mg U nivers 20 mg 8-01 by mouth. ity of tablet 00:00: [facility] Melatonin 5 2019-0 Yes 5mg Take 5 mg U nivers mg tablet 8-01 by mouth. ity o f 00:00: [facility] apixaban 5 2019-0 Yes 5mg Take 5 mg Un [place] mg tablet 8-01 by mouth. ity o f 00:00: [facility] famotidine 2019-0 Yes 20mg Take 20 mg U nivers 20 mg 8-01 by mouth. ity of tablet 00:00: [facility] Branch Melatonin 5 2019-0 Yes 5mg Take 5 mg U nivers mg tablet 8-01 by mouth. ity o f 00:00: [facility] Branch apixaban 5 2019-0 Yes 5mg Take 5 mg Un [place] mg tablet 8-01 by mouth. ity o f 00:00: [facility] famotidine 2019-0 Yes 20mg Take 20 mg U nivers 20 mg 8-01 by mouth. ity of tablet 00:00: [facility] Melatonin 5 2019-0 Yes 5mg Take 5 mg U nivers mg tablet 8-01 by mouth. ity o f 00:00: [facility] apixaban 5 2019-0 Yes 5mg Take 5 mg Un [place] mg tablet 8-01 by mouth. ity o f 00:00: [facility] Branch famotidine 2019-0 Yes 20mg Take 20 mg U nivers 20 mg 8-01 by mouth. ity of tablet 00:00: [facility] Branch Melatonin 5 2019-0 Yes 5mg Take 5 mg U nivers mg tablet 8-01 by mouth. ity o f 00:00: [facility] apixaban 5 2019-0 Yes 5mg Take 5 mg Un [place] mg tablet 8-01 by mouth. ity o f 00:00: [facility] famotidine 2019-0 Yes 20mg Take 20 mg U nivers 20 mg 8-01 by mouth. ity of tablet 00:00: [facility] Melatonin 5 2019-0 Yes 5mg Take 5 mg U nivers mg tablet 8-01 by mouth. ity o f 00:00: [facility] apixaban 5 2019-0 Yes 5mg Take 5 mg Un [place] mg tablet 8-01 by mouth. ity o f 00:00: [facility] famotidine 2019-0 Yes 20mg Take 20 mg U nivers 20 mg 8-01 by mouth. ity of tablet 00:00: [facility] Melatonin 5 2019-0 Yes 5mg Take 5 mg U nivers mg tablet 8-01 by mouth. ity o f 00:00: [facility] apixaban 5 2019-0 Yes 5mg Take 5 mg Un [place] mg tablet 8-01 by mouth. ity o f 00:00: [facility] Branch famotidine 2019-0 Yes 20mg Take 20 mg U nivers 20 mg 8-01 by mouth. ity of tablet 00:00: [facility] Melatonin 5 2019-0 Yes 5mg Take 5 mg U nivers mg tablet 8-01 by mouth. ity o f 00:00: [facility] Branch apixaban 5 2019-0 Yes 5mg Take 5 mg Un [place] mg tablet 8-01 by mouth. ity o f 00:00: [facility] famotidine 2019-0 Yes 20mg Take 20 mg U nivers 20 mg 8-01 by mouth. ity of tablet 00:00: [facility] Melatonin 5 2019-0 Yes 5mg Take 5 mg U nivers mg tablet 8 by mouth. ity o f 00:00: [facility] apixaban 5 2019-0 Yes 5mg Take 5 mg [place] mg tablet 8 by mouth. ity o f 00:00: [facility] famotidine 2019-0 Yes 20mg Take 20 mg U nivers 20 mg 8 by mouth. ity of tablet 00:00: [facility] Melatonin 5 2019-0 Yes 5mg Take 5 mg U nivers mg tablet 8 by mouth. ity o f 00:00: [facility] apixaban 5 2019-0 Yes 5mg Take 5 mg Un [place] mg tablet 8 by mouth. ity o f 00:00: [facility] famotidine 2019-0 Yes 20mg Take 20 mg U nivers 20 mg 8 by mouth. ity of tablet 00:00: [facility] Melatonin 5 2018-0 Yes 5mg Take 5 mg U nivers mg tablet 8 by mouth. ity o f 00:00: [facility] apixaban 5 2019-0 Yes 5mg Take 5 mg Un [place] mg tablet 12-05 by mouth. ity o f 00:00: [facility] famotidine 2019-0 Yes 20mg Take 20 mg U nivers 20 mg 8 by mouth. ity of tablet 00:00: [facility] Melatonin 5 2019-0 Yes 5mg Take 5 mg U nivers mg tablet 12-05 by mouth. ity o f 00:00: [facility] melatonin 5 2019-0 Yes 5mg QD Take [...] S t (PEPCID) 20 8-01 tablet (20 Ain kes MG tablet 00:00: mg total) Med ical 00 by mouth 2 Center (two) times daily. gabapentin 2019-0 Yes 300mg Q.5D Take 0.5 [...] l 00 by mouth Center nightly. BYSTOLIC 2018-0 Yes Univer s mg tablet 7-30 ity of 00:00: [address] [facility] Yes Univer s mg tablet 7-30 ity of 00:00: [facility] BYSTOLIC 10 2019-0 Yes Univer s mg tablet 7-30 ity of 00:00: [facility] BYSTOLIC 10 2019-0 Yes Univer s mg tablet 7-30 ity of 00:00: [facility] BYSTOLIC 10 2019-0 Yes Univer s mg tablet 7-30 ity of 00:00: [facility] BYSTOLIC 10 2019-0 Yes Univer s mg tablet 7-30 ity of 00:00: [place] [facility] BYSTOLIC 10 2019-0 Yes Univer s mg tablet 7-30 ity [...] mg tablet 7-30 ity of 00:00: [place] 00 [facility] METFORMIN 2019-0 Yes [id number] TAKE ONE Univers 1,000 mg 5-03 TABLET BY ity of tablet 00:00: MOUTH 00 TWICE A Medical DAY WITH Branch FOOD METFORMIN 2019-0 Yes [id number] TAKE ONE Univers 1,000 mg 5-03 TABLET BY ity of tablet 00:00: MOUTH 00 TWICE A Medical DAY WITH Branch FOOD METFORMIN 2019-0 Yes [id number] TAKE ONE Univers 1,000 mg 5-03 TABLET BY ity of tablet 00:00: MOUTH 00 TWICE A Medical DAY WITH Branch FOOD METFORMIN 2019-0 Yes [id number] TAKE ONE Univers 1,000 mg 5-03 TABLET BY ity of tablet 00:00: MOUTH 00 TWICE A Medical DAY WITH Branch FOOD METFORMIN 2019-0 Yes [id number] TAKE ONE Univers 1,000 mg 5-03 TABLET BY ity of tablet 00:00: MOUTH 00 TWICE A Medical DAY WITH Branch FOOD METFORMIN 2019-0 Yes [id number] TAKE ONE Univers 1,000 mg 5-03 TABLET BY ity of tablet 00:00: MOUTH [place] 00 TWICE A Medical DAY WITH Branch FOOD METFORMIN 2019-0 Yes [id number] TAKE ONE Univers 1,000 mg 5-03 TABLET BY ity of tablet 00:00: MOUTH [place] 00 TWICE A Medical DAY WITH Branch FOOD METFORMIN 2019-0 Yes [id number] TAKE ONE Univers 1,000 mg 5-03 TABLET BY ity of tablet 00:00: MOUTH [place] 00 TWICE A Medical DAY WITH Branch FOOD METFORMIN 2019-0 Yes [id number] TAKE ONE Univers 1,000 mg 5-03 TABLET BY ity of tablet 00:00: MOUTH [place] 00 TWICE A Medical DAY WITH Branch FOOD METFORMIN 2019-0 Yes [id number] TAKE ONE Univers 1,000 mg 5-03 TABLET BY ity of tablet 00:00: MOUTH [place] 00 TWICE A Medical DAY WITH Branch FOOD METFORMIN 2019-0 Yes [id number] TAKE ONE Univers 1,000 mg 5-03 TABLET BY ity of tablet 00:00: MOUTH [place] 00 TWICE A Medical DAY WITH Branch FOOD METFORMIN 2019-0 Yes [id number] TAKE ONE Univers 1,000 mg 5-03 TABLET BY ity of tablet 00:00: MOUTH [place] 00 TWICE A Medical DAY WITH Branch FOOD METFORMIN 2019-0 Yes [id number] TAKE ONE Univers 1,000 mg 5-03 TABLET BY ity of tablet 00:00: MOUTH [place] 00 TWICE A Medical DAY WITH Branch FOOD METFORMIN 2019-0 Yes [id number] TAKE ONE Univers 1,000 mg 5-03 TABLET BY ity of tablet 00:00: MOUTH [place] 00 TWICE A Medical DAY WITH Branch FOOD METFORMIN 2019-0 Yes [id number] TAKE ONE Univers 1,000 mg 5-03 TABLET BY ity of tablet 00:00: MOUTH [place] 00 TWICE A Medical DAY WITH Branch FOOD METFORMIN 2019-0 Yes [id number] TAKE ONE Univers 1,000 mg 5-03 TABLET BY ity of tablet 00:00: MOUTH [place] 00 TWICE A Medical DAY WITH Branch FOOD METFORMIN 2019-0 Yes [id number] TAKE ONE Univers 1,000 mg 5-03 TABLET BY ity of tablet 00:00: MOUTH [place] 00 TWICE A Medical DAY WITH Branch FOOD ROSUVASTATI 2018-1 Yes Take by Uni vers N CALCIUM 2-07 mouth. ity of (CRESTOR 15:40: Indication Aditya as ORAL) 07 s: Medical [place] Branch is unsure of dosage aspirin 325 2017- Yes 325mg Take 325 U nivers mg [...] 2-07 mouth. ity of ORAL) 15:40: Indication s: Patient Medical is unsure Branch of [...] 2-07 mouth. ity of ORAL) 15:40: Indication s: Patient Medical is unsure Branch of dosage Insulin 2017-05 Yes [id number] 28U inject 28 Univers Lisp [employer] Lisp 2-07 Units ity of Prot, Hum, 00:00[place] (HUMALOG 00 skin 2 Medical MIX 75-25 (two) Branch KWIKPEN) times 100 unit/mL daily with (75-25) meals. injection Insulin 2017-05 Yes [id number] 28U inject 28 Univers [place] [employer] [place]isp 2-07 Units ity of Prot, Hum, 00:00: [place] (HUMALOG 00 skin 2 Medical MIX 75-25 (two) Branch KWIKPEN) times 100 unit/mL daily with (75-25) meals. injection Insulin 2017-05 Yes [id number] 28U inject 28 Univers [place] [employer] [place] 2-07 Units ity of Prot, Hum, 00:00: [place] (HUMALOG 00 skin 2 Medical MIX 75-25 (two) Branch KWIKPEN) times 100 unit/mL daily with (75-25) meals. injection Insulin 2017-05 Yes [id number] 28U inject 28 Univers [place] [employer] [place] 2-07 Units ity of Prot, Hum, 00:00: [place] (HUMALOG 00 skin 2 Medical MIX 75-25 (two) Branch KWIKPEN) times 100 unit/mL daily with (75-25) meals. injection Insulin 2017-05 Yes [id number] 28U inject 28 Univers [place] [employer] [place] 2-07 Units ity of Prot, Hum, 00:00: [place] (HUMALOG 00 skin 2 Medical MIX 75-25 (two) Branch KWIKPEN) times 100 unit/mL daily with (75-25) meals. injection Insulin 2017-05 Yes [id number] 28U inject 28 Univers [place] [employer] [place] 2-07 Units ity of Prot, Hum, 00:00: [place] (HUMALOG 00 skin 2 Medical MIX 75-25 (two) Branch KWIKPEN) times 100 unit/mL daily with (75-25) meals. injection Insulin 2017-05 Yes [id number] 28U inject 28 Univers [place] [employer] [place] 2-07 Units ity of Prot, Hum, 00:00: [place] (HUMALOG 00 skin 2 Medical MIX 75-25 (two) Branch KWIKPEN) times 100 unit/mL daily with (75-25) meals. injection Insulin 2017-05 Yes [id number] 28U inject 28 Univers [place] [employer] [place] 2-07 Units ity of Prot, Hum, 00:00: [place] (HUMALOG 00 skin 2 Medical MIX 75-25 (two) Branch KWIKPEN) times 100 unit/mL daily with (75-25) meals. injection Insulin 2017-05 Yes [id number] 28U inject 28 Univers [place] [employer] [place] 2-07 Units ity of Prot, Hum, 00:00: [place] (HUMALOG 00 skin 2 Medical MIX 75-25 (two) Branch KWIKPEN) times 100 unit/mL daily with (75-25) meals. injection Insulin 2017-05 Yes [id number] 28U inject 28 Univers [place] [employer] [place] 2-07 Units ity of Prot, Hum, 00:00: [place] (HUMALOG 00 skin 2 Medical MIX 75-25 (two) Branch KWIKPEN) times 100 unit/mL daily with (75-25) meals. injection Insulin 2017-05 Yes [id number] 28U inject 28 Univers [place] [employer] [place] 2-07 Units ity of Prot, Hum, 00:00: [place] (HUMALOG 00 skin 2 Medical MIX 75-25 (two) Branch KWIKPEN) times 100 unit/mL daily with (75-25) meals. injection Insulin 2017-05 Yes [id number] 28U inject 28 Univers [place] [employer] [place] 2-07 Units ity of Prot, Hum, 00:00: [place] (HUMALOG 00 skin 2 Medical MIX 75-25 (two) Branch KWIKPEN) times 100 unit/mL daily with (75-25) meals. injection Insulin 2017-05 Yes [id number] 28U inject 28 Univers [place] [employer] [place] 2-07 Units ity of Prot, Hum, 00:00: [place] (HUMALOG 00 skin 2 Medical MIX 75-25 (two) Branch KWIKPEN) times 100 unit/mL daily with (75-25) meals. injection Insulin 2017-05 Yes [id number] 28U inject 28 Univers [place] [employer] [place] 2-07 Units ity of Prot, Hum, 00:00: [place] (HUMALOG 00 skin 2 Medical MIX 75-25 (two) Branch KWIKPEN) times 100 unit/mL daily with (75-25) meals. injection Insulin 2017-05 Yes [id number] 28U inject 28 Univers [place] [employer] [place] 2-07 Units ity of Prot, Hum, 00:00: [place] (HUMALOG 00 skin 2 Medical MIX 75-25 (two) Branch KWIKPEN) times 100 unit/mL daily with (75-25) meals. injection Insulin 2017-05 Yes [id number] 28U inject 28 Univers [place] [employer] [place] 2-07 Units ity of Prot, Hum, 00:00: [place] the [place] (HUMALOG 00 skin 2 Medical MIX 75-25 (two) Branch KWIKPEN) times 100 unit/mL daily with (75-25) meals. injection Insulin 2017-05 Yes [id number] 28U inject 28 Univers [place] [employer] [place] 2-07 Units ity of Prot, Hum, 00:00: [place] (HUMALOG 00 skin 2 Medical MIX 75-25 (two) Branch KWIKPEN) times 100 unit/mL daily with (75-25) meals. injection BD Yes [id number] USE DAILY Uni vers ULTRAFINE 3-21 WITH ity of III MINI 00:00: TOUJEO [place] PEN 00 Medical gauge x Branch 3/16" Ndle BD 0 Yes [id number] USE DAILY Uni vers ULTRAFINE 3-21 WITH ity of III MINI 00:00: TOUJEO [place] PEN Medical gauge x Branch 3/16" Ndle BD 2018-0 Yes [id number] USE DAILY Uni vers ULTRAFINE 3-21 WITH ity of III MINI 00:00: TOUJEO [place] PEN Medical gauge x Branch 3/16" Ndle BD 2018-0 Yes [id number] USE DAILY Uni vers ULTRAFINE 3-21 WITH ity of III MINI 00:00: TOUJEO [place] PEN Medical gauge x Branch 3/16" Ndle BD 2017-0 Yes [id number] USE DAILY Uni vers ULTRAFINE 3-21 WITH ity of III MINI 00:00: TOUJEO [place] PEN Medical gauge x Branch 3/16" Ndle BD 2017-0 Yes [id number] USE DAILY Uni vers ULTRAFINE 3-21 WITH ity of III MINI 00:00: TOUJEO [place] PEN 31 00 Medical gauge x Branch 3/16" Ndle BD 2018-0 Yes [id number] USE DAILY Uni vers ULTRAFINE 3-21 WITH ity of III MINI 00:00: TOUJEO [place] PEN Medical gauge x Branch 3/16" Ndle BD 2018-0 Yes [id number] USE DAILY Uni vers ULTRAFINE 3-21 WITH ity of III MINI 00:00: TOUJEO [place] PEN Medical gauge x Branch 3/16" Ndle BD 2018-0 Yes [id number] USE DAILY Uni vers ULTRAFINE 3-21 WITH ity of III MINI 00:00: TOUJEO [place] PEN Medical gauge x Branch 3/16" Ndle BD 2018-0 Yes [id number] USE DAILY Uni vers ULTRAFINE 3-21 WITH ity of III MINI 00:00: TOUJEO [place] PEN Medical gauge x Branch 3/16" Ndle BD 2018-0 Yes [id number] USE DAILY Uni vers ULTRAFINE 3-21 WITH ity of III MINI 00:00: TOUJEO [place] PEN Medical gauge x Branch 3/16" Ndle BD 2018-0 Yes [id number] USE DAILY Uni vers ULTRAFINE 3-21 WITH ity of III MINI 00:00: TOUJEO [place] PEN Medical gauge x Branch 3/16" Ndle BD 2018-0 Yes [id number] USE DAILY Uni vers ULTRAFINE 3-21 WITH ity of III MINI 00:00: TOUJEO [place] PEN Medical gauge x Branch 3/16" Ndle BD 2018-0 Yes [id number] USE DAILY Uni vers ULTRAFINE 3-21 WITH ity of III MINI 00:00: TOUJEO [place] PEN Medical gauge x Branch 3/16" Ndle BD 2018-0 Yes [id number] USE DAILY Uni vers ULTRAFINE 3-21 WITH ity of III MINI 00:00: TOUJEO [place] PEN Medical gauge x Branch 3/16" Ndle BD 2018-0 Yes [id number] USE DAILY Uni vers ULTRAFINE 3-21 WITH ity of III MINI 00:00: TOUJEO [place] PEN Medical gauge x Branch 3/16" Ndle BD 2018-0 Yes [id number] USE DAILY Uni vers ULTRAFINE 3-21 WITH ity of III MINI 00:00: TOUJEO [place] PEN Medical gauge x Branch 07/20" Ndle Immunizations Ordered Immunization Filled Immunization Date Status Commen ts Source Name Name Pneumococcal 2018-11-[address] [facility] Conjugate (Prevnar) 00:00:00 [facility] 13-Valent Pneumococcal 2018-11-[address] [facility] Conjugate (Prevnar) 00:00:00 [facility] 13[facility] Pneumococcal 2018-11-[address] [facility] Conjugate (Prevnar) 00:00:00 [facility] 13-Valent Pneumococcal 2018-11-[address] [facility] Conjugate (Prevnar) 00:00:00 [facility] 13-[facility]ent Pneumococcal 2018-11-[address] [facility] Conjugate (Prevnar) 00:00:00 [facility] 13-[facility]ent Pneumococcal 2018-11-[address] [facility] Conjugate (Prevnar) 00:00:00 [facility] 13[facility] Pneumococcal 2018-11-[address] [facility] Conjugate (Prevnar) 00:00:00 [facility] 13-[facility]ent Pneumococcal 2018-11-[address] [facility] Conjugate (Prevnar) 00:00:00 [facility] 13-[facility]ent Vital Signs Vital Name Observation Time Observation Value Comments Source Systolic blood 2019-01-20 16:13:00 120 mm[Hg] Univer sity [facility] Diastolic blood 2019-01-20 16:13:00 66 [facility]Hg[facility] 2019-01-20 16:13:00 66 /min [facility] Body temperature 2019-01-20 16:13:00 37.33 [facility] Respiratory rate 2019-01-20 16:13:00 16 /min [facility] Body height 2019-01-20 16:13:00 160 cm [facility] Body weight 2019-01-20 16:13:00 72.122 kg [facility] BMI 2019-01-20 16:13:00 28.17 kg/m2 [facility] Systolic blood 2018-12-27 17:00:00 150 mm[Hg] Univer sity [facility] Diastolic blood 2018-12-27 17:00:00 51 mm[Hg] Unive rsity [facility] Heart rate 2018-12-27 17:00:00 69 /min Universi [facility] Body temperature 2018-12-27 17:00:00 36.72 [facility] Respiratory rate 2018-12-27 17:00:00 20 /min [facility] Oxygen saturation in 2018-12-27 17:00:00 100 /min [facility] blood by [facility] Pulse oximetry Branch Body height 2018-12-26 03:55:00 160 cm [facility] Body weight 2018-12-26 01:00:00 [facility] 2018-12-26 01:00:00 23.43 kg/m2 [facility] Systolic blood 2018-12-24 19:12:00 145 mm[facility]Hg[facility] Diastolic blood 2018-12-24 19:12:00 58 mm[Hg] [facility] Heart rate 2018-12-24 19:10:00 68 /min [facility] Body temperature 2018-12-24 19:10:00 37.11 [facility] Respiratory rate 2018-12-24 19:10:00 18 /min [facility] Systolic (mm Hg) 2019-01-17 19:11:00 Luis Angel Hwang Diastolic (mm Hg) 2019-01-17 19:11:00 Mem orial [place] Heart Rate 2019-01-17 19:11:00 [facility] Oral (F) 2019-01-17 19:11:00 98.8 F [facility] Height 2019-01-17 19:11:00 160.02 cm [facility] Weight 2019-01-17 19:11:00 [facility] BMI Calculated 2019-01-17 19:11:00 Erinn Ramsay Procedures Procedure Date / Time Performing Clinician Source Performed REFERRAL- 2019-05-27 06:01:00 Doctor Unassigned, No [facility] REQUEST/RESPONSE [facility] AUTHORIZATION FOR RELEASE 2018-12-30 05:01:00 Doctor Unassigned, No [facility] EXTERNAL PROVIDER RECORDS 2018-12-29 05:01:00 Doctor Unassigned, No [facility] POCT GLUCOSE (AUTOMATED) 2018-12-27 21:43:00 Jorge Gillis Uni versity of [facility] POCT GLUCOSE (AUTOMATED) 2018-12-27 17:27:00 Jorge Gill[facility] PROTHROMBIN TIME / INR 2018-12-27 17:16:00 Mai Rosen [facility] ACTIVATED PARTIAL 2018-12-27 17:16:00 Brandon Rosen [facility] CONTRAST 2018-12-27 17:02:31 Brandon [facility] PO[facility] GLUCOSE (AUTOMATED) 2018-12-27 14:12:00 Jorge Gillis [facility] MR CERVICAL SPINE W WO 2018-12-27 05:21:32 Go Mayberry [facility] MR LUMBAR SPINE W WO 2018-12-27 05:21:32 Go Mayberry [facility] [place] [facility] MR THORACIC SPINE W WO 2018-12-27 05:21:32 Yosi Mayberryitri [facility] POCT GLUCOSE (AUTOMATED) 2018-12-27 01:08:00 Jorge Gillis [facility] POCT GLUCOSE (AUTOMATED) 2018-12-26 21:53:00 Jorge Gillis Uni versity of [facility] POCT GLUCOSE (AUTOMATED) 2018-12-26 16:37:00 Jorge Gillis Uni [facility] POCT GLUCOSE (AUTOMATED) 2018-12-26 13:22:00 Jorge Gillis Uni [facility] GLYCOSYLATED HEMOGLOBIN 2018-12-26 11:08:00 Koko Rodríguez [facility] (A1C) [facility] MAGNESIUM 2018-12-26 11:05:00 Koko Rodríguez [place] [facility] HEPATIC FUNCTION PANEL 2018-12-26 11:05:00 Koko Rodríguez [facility] ([id number]) (ALB,T.PRO,BILI [facility] T,BU/BC,ALT,AST,ALK PHOS) BASIC METABOLIC PANEL 2018-12-26 11:05:00 [facility] (NA, K, CL, CO2, GLUCOSE, [facility] BUN, CREATININE, CA) URINALYSIS 2018-12-26 06:13:00 [facility] PHOSPHORUS 2018-12-26 02:58:00 [facility] CREATINE KINASE 2018-12-26 02:58:00 [facility] MAGNESIUM 2018-12-26 02:58:00 [facility] VITAMIN B12, LEVEL 2018-12-26 02:58:00 [facility]OL[facility] 2018-12-26 02:58:00 [facility] THYROID STIMULATING 2018-12-26 02:58:00 [facility] HEPATIC FUNCTION PANEL 2018-12-26 02:58[facility] ([id number] (ALB,T.PRO,BILI [facility] Branch T,BU/BC,ALT,AST,ALK PHOS) BASIC METABOLIC PANEL 2018-12-26 02:58:00 [facility] (NA, K, CL, CO2, GLUCOSE, [facility] BUN, CREATININE, CA) LIPID PANEL ([id number])(TOTAL 2018-12-26 02:58:00 Koko Rodríguez [facility] CHOLESTEROL, [facility] TRIGLYCERIDES, HDL) CBC WITH DIFFERENTIAL 2018-12-26 02:58:00 [facility] GLYCOSYLATED HEMOGLOBIN 2018-12-26 02:58:00 [facility] (A1C) [facility] POCT GLUCOSE (AUTOMATED) 2018-12-26 02:24:00 Jorge Gillis [facility] NO SHOW OR MISSED 2018-12-24 18:15:50 Doctor Unassigned, No [facility] APPOINTMENT POLICY Name Medical [facility] ACKNOWLEDGEMENT EXTERNAL PROVIDER RECORDS 2018-12-17 05:01:00 Doctor Unassigned, No [facility] HOSPITAL ADMISSION 2018-12-06 05:01:00 Doctor Unassigned, No [facility] Plan of Care Planned Activity Planned [...] Lisa es Test 00:00:00 [facility] [code = 751807450] Future Scheduled [address] [facility] Lisa [facility] Test 00:00:00 malignant neoplasm of [facility] colon (procedure) [code = 452732228] Encounters Start End Encounter Admission Attending Care Care Encounter Source Date/Time Date/Time Type Type Clinicians Facility Department ID 2021-06-01 Outpatient [facility] [id number] Common 14:40:35 [facility] 2021-06-01 Outpatient [facility] [id number] Common 14:39:51 [facility] 2019-05-27 2019-05-27 Orders Doctor TIPTON [id number] Univers 00:00:00 00:00:00 Only Unassigned, MARIBEL [id number] ity of [facility] [id number] Aditya as [phone] [place] [address] Branch 2019-01-20 2019-01-24 Office Constantin, [facility] [id number] Univers 11:02:40 11:44:23 Visit Arthur Mares [id number] [phone] [place] 893102 [facility] 2019-01-17 2019-01-18 Outpatient nullFlavo [facility] [id number] Memoria 18:50:00 04:59:59 r Primary 01 l Care [place] 2018-12-31 2018-12-31 Telephone Constantin PRDIEUDONNE 1.2.840.114 [id number] Univers 00:00:00 00:00:00 Arthur Mares [id number] [id number] [phone] [place] 948762 [facility] 2018-12-30 2018-12-30 Orders Doctor SAEED 1.2.840.114 [id number] Univers 00:00:00 00:00:00 Only Unassigned, MARIBEL [id number] ity of [place] [facility] [id number] Aditya as [phone] [facility] 009 [place] 2018-12-30 2018-12-30 Transition Shirlenedemarcus Krystaldelia 1.2.840.114 [id number] Univers 00:00:00 00:00:00 of Care Izabella L Vilchis [id number] i ty [place] [phone] [facility] 403 Branch 2018-12-29 2018-12-29 Orders Doctor SAEED 1.2.840.114 [id number] Univers 00:00:00 00:00:00 Only Unassigned, MARIBEL [id number] ity of [place] [facility] 4.2.7.2.686 Aditya as [phone] [facility] 009 [place] 2018-12-25 2018-12-27 Hospital Jorge Gillis Idalmis 1.2.840.114 [id number] Univers 18:40:00 17:51:00 Encounter S Maribel [id number] ity of Hospital 4.2.7.2.686 Aditya as [phone] [facility] 097 [place] 2018-12-25 2018-12-25 Telephone Constantin PRDIEUDONNE 1.2.840.114 [id number] Univers 00:00:00 00:00:00 Arthur Mares [id number] [place].2.[place] [phone] [place] 948762 [facility] 2018-12-24 2018-12-24 [facility] 1.2.840.114 [id number] Univers 16:08:40 16:08:54 Visit Arthur Mares [id number] [place] [phone] [facility] 092 [facility] 2018-12-24 2018-12-24 Orders Doctor SAEED 1.2.840.114 [id number] Univers 00:00:00 00:00:00 Only Unassigned, MARIBEL [id number] ity of [place] [facility] 4.2.7.2.686 Aditya as [phone] [address] 2018-12-17 2018-12-17 Orders Doctor SAEED 1.2.840.114 [id number] Univers 00:00:00 00:00:00 Only Unassigned, MARIBEL [id number] ity of [place] [facility] 4.2.7.2.686 Aditya as [phone] [address] 2018-12-09 2018-12-09 [facility] [id number] Univers 00:00:00 00:00:00 Marybeth Mares [id number] i [place] [phone] [facility] 220 [facility] 2018-12-06 2018-12-06 Orders Doctor SAEED 1.2.840.114 [id number] Univers 00:00:00 00:00:00 Only Unassigned, MARIBEL [id number] ity of [place] [facility] 4.2.7.2.686 Aditay as [phone] [address] Results Test Description Test Time Test [...] Interpretation Comments POCT GLU (test code = 5558115552) 123 mg/dL 70-110 H Lab Interpretation (test code = Abnormal 17234-9) [facility] [id number] 18:21:39 Impression: No acute intracranial hemorrhage or [...] are clear. Bilateral lenssurgery. Hyperostosis frontalis interna. [facility], Radiant Results Inft User - 12/27/2018 [...] reviewed this study and agree with theabove report.[facility] / [facility]R 2018-12-27 17:41:00 Test Item Value Reference Range Interpretation Comments PROTIME PATIENT (test See_Comment H [Auto mated message] code = 5964-2) The system theRightAPI generated this result transmitted ref erence range: 10.1 - 1 2.6 Seconds. The reference range was not used to int erpret this result as normal/abnormal . INR (test code = 6301-6) Nor mal INR <1.1; Warfarin Therap eutic range 2.0 to 3. 0 or 2.5 to 3.5, dep ending upon the indica tions. Lab Interpretation (test Abnormal code = 41017-9) [facility] 17:41:00 Test Item Value Reference Range Interpretation Comments APTT Patient (test code = See_Comment [ Automated message] 3173-2) The system Savor generated this result transmitted ref erence range: 26 - 36 Seconds. The re ference range was not u sed to interpret this result as normal/abnor mal. Lab Interpretation (test Normal code = 19176-2) [facility] GLUCOSE (AUTOMATED)2018-12-27 17:38:00 Test Item Value Reference Range Interpretation Comments POCT GLU (test code = 9282251540) 170 mg/dL 70-110 H Lab Interpretation (test code = Abnormal 83212-0) [facility] GLUCOSE (AUTOMATED)2018-12-27 14:13:00 Test Item Value Reference Range Interpretation Comments POCT GLU (test code = 8774026060) 132 mg/dL 70-110 H Lab Interpretation (test code = Abnormal 51509-0) [facility] L[facility] SP[facility] W WO [id number] 13:32:43 No significant spinal canal stenosis or [...] in the mid and lower lumbar spine. [facility], Radiant Results Inft User - 12/27/2018 8:34 [...] intramuscular edema in the mid and lower paraspinalismuscles.[facility] THORACIC SPINE W WO [id number] 13:32:43 No significant spinal canal stenosis or [...] in the mid and lower lumbar spine. [facility], Radiant Results Inft User - 12/27/2018 8:34 [...] intramuscular edema in the mid and lower paraspinalismuscles.[facility] CERVICAL SPINE W WO [id number] 13:32:43 No significant spinal canal stenosis or [...] in the mid and lower lumbar spine. [facility], Radiant Results Inft User - 12/27/2018 8:34 [...] intramuscular edema in the mid and lower paraspinalismuscles.[facility] GLUCOSE (AUTOMATED)2018-12-27 01:15:00 Test Item Value Reference Range Interpretation Comments POCT GLU (test code = [id number]) 179 mg/dL 70-110 H Lab Interpretation (test code = Abnormal 87392-2) [facility] GLUCOSE (AUTOMATED)2018-12-26 21:56:00 Test Item Value Reference Range Interpretation Comments POCT GLU (test code = 2904138492) 101 mg/dL 70-110 Lab Interpretation (test code = Normal 68660-8) [facility] GLUCOSE (AUTOMATED)2018-12-26 16:57:00 Test Item Value Reference Range Interpretation Comments POCT GLU (test code = 8731832747) 138 mg/dL 70-110 H Lab Interpretation (test code = Abnormal 40322-2) [facility] GLUCOSE (AUTOMATED)2018-12-26 13:24:00 Test Item Value Reference Range Interpretation Comments POCT GLU (test code = 7141916715) 124 mg/dL 70-110 H Lab Interpretation (test code = Abnormal 08168-0) [facility]2018-12-26 12:51:00 Test Item Value Reference Range Interpretation Comments HGB A1C (test code = 4548-4) 5.9 % 4-6 Lab Interpretation (test code = Normal 03137-9) [facility] (NA, K, CL, CO2, GLUCOSE, BUN, CREATININE, CA)2018-12-26 12:32:00 Test Item Value Reference Range Interpretation Comments NA (test code = 142 mmol/L 135-145 6955180884) K (test code = 4.6 mmol/L 3.5-5 Slight 5429019013) hemolysis CL (test code = 110 mmol/L 98-108 H 5785018794) CO2 TOTAL (test code 27 mmol/L 23-31 = 3286139324) AGAP (test code = 2-16 2527359702) BUN (test code = 10 mg/dL 7-23 Slight 7948577126) hemolysis GLUCOSE (test code = 128 mg/dL 70-110 H 9342199012) CREATININE (test code 0.68 mg/dL 0.5-1.04 = 0206126908) CALCIUM (test code = 9.2 mg/dL 8.6-10.6 5908616142) eGFR Calculation mL/min/1.73m2 (Non-) (test code = 5959315790) eGFR Calculation mL/min/1.73m2 () (test code = 5898762300) BIB (test code = BIB) Association of [...] tests). Lab Interpretation Abnormal (test code = 57223-4) [facility]09134[facility] (ALB,T.PRO,BILI T,BU/BC,ALT,AST,ALK PHOS)2018-12-26 12:32:00 Test Item Value Reference Range Interpretation Comments TOTAL BILI (test code = 9243488868) 0.9 mg/dL 0.1-1.1 BILI UNCON (test code = 9416729782) 0.6 mg/dL 0.1-1.1 BILI CONJ (test code = 0145718046) 0.0 mg/dL 0-0.3 T PROTEIN (test code = 5355697929) 6.5 g/dL 6.3-8.2 ALBUMIN (test code = 0557746534) 3.7 g/dL 3.5-5 ALK PHOS (test code = 1462721484) 41 U/L 34-122 ALT(SGPT) (test code = 5597099309) 27 U/L 9-51 AST(SGOT) (test code = 3170815281) 36 U/L 13-40 Lab Interpretation (test code = Normal 33290-7) [facility]2019-[facility]-22 12:32:00 Test Item Value Reference Range Interpretation Comments MAGNESIUM (test code = 2215160020) 2.0 mg/dL 1.7-2.4 Lab Interpretation (test code = Normal 92661-9) [facility]2019-08-[facility] 08:30:00 Test Item Value Reference Range Interpretation Comments FOLATE SER (test code = 9545113292) >20.0 3-20 H Lab Interpretation (test code = Abnormal 19295-8) [facility]IT[facility]IN B12, [id number] 08:17:00 Test Item Value Reference Range Interpretation Comments VIT B12 (test code = 632 pg/mL 240-930 4778020573) BIB (test code = BIB) Biotin has been reported to cause a positive bias, interpret results relative to patient's use of biotin. Lab Interpretation (test Normal code = 56972-0) [facility] AllenTHYROID STIMULATING [id number] 07:43:00 Test Item Value Reference Range Interpretation Comments TSH (test code = See_Comment [Automated message] 7404060554) The system Savor generated this result transmitted ref erence range: 0.45 - 4 .70 mIU/L. The refe rence range was not u sed to interpret this result as normal/abnor mal. Lab Interpretation (test Normal code = 04347-4) [facility] Allen[facility]cosylated Hemoglobin (A1C)2018-12-26 07:24:00 Test Item Value Reference Range Interpretation Comments HGB A1C (test code = 4548-4) 5.9 % 4-6 Lab Interpretation (test code = Normal 33913-6) [facility] AllenCREATINE [id number] 07:09:00 Test Item Value Reference Range Interpretation Comments CK (test code = 9697669180) 58 U/L 33-194 Lab Interpretation (test code = Normal 22726-4) [facility] Allen[facility]inalysis2019-[facility]-22 07:07:00 Test Item Value Reference Range Interpretation Comments APPEARANCE (test code = Clear Clear 6681468797) COLOR (test code = Straw Yellow A 1327972016) PH (test code = 4.8-8.0 2378302931) SP GRAVITY (test code = 1.003-1.030 7490847912) GLU U QUAL (test code = Normal Normal 1056460136) BLOOD (test code = Negative Negative 6496292541) KETONES (test code = Negative Negative 0407828208) PROTEIN (test code = Negative Negative 2887-8) UROBILIN (test code = Normal Normal 8238969323) BILIRUBIN (test code = Negative Negative 2757606901) NITRITE (test code = Negative Negative 1884246390) LEUK SHRADDHA (test code = 75/uL Negative A 5274155814) RBC/HPF (test code = See_Comment [Autom ated message] 2534375049) The system Savor generated this result transmitted ref erence range: 0 - 3 HP F. The reference range was not used to int erpret this result as normal/abnormal . WBC/HPF (test code = See_Comment H [Autom ated message] 8391374946) The system Savor generated this result transmitted ref erence range: 0 - 5 HP F. The reference range was not used to int erpret this result as normal/abnormal . BACTERIA (test code = Few Negative A 9722873830) SQ EPITH (test code = See_Comment [Auto mated message] 1309342114) The system Savor generated this result transmitted ref erence range: <=2 HPF. The reference range was not used to int erpret this result as normal/abnormal . Lab Interpretation (test Abnormal code = 98453-7) [facility] WITH [id number] 07:00:00 Test Item Value Reference Range Interpretation [...] RDW-SD (test code = 44.7 fL 39-49.9 88508-5) RDW-CV (test code = 13.4 % 12-15.5 788-0) PLT (test code = See_Comment [Automated 777-3) message] The sy stem which generated this result transmitted reference range : 166 - 358 10*3/ ?L. The reference r alyssa was not used to interpret this result as normal/abnormal . MPV (test code = 9.7 fL 9.5-12.9 36977-8) NRBC/100 WBC (test See_Comment [Automat ed code = 5645400421) message] The system which generated this result transmitted reference range : 0.0 - 10.0 /100 WBCs. The refer ence range was not u sed to interpret th is result as normal/abnormal . NRBC x10^3 (test code <0.01 See_Comment [Auto mated = 2156584059) message] The s ystem which generated this result transmitted reference range : 10*3/?L. The reference range was not used to interpret this result as normal/abnormal . GRAN MAT (NEUT) % 61.8 % (test code = 770-8) IMM GRAN % (test code 0.50 % = 2066718769) LYMPH % (test code = 28.1 % 736-9) MONO % (test code = 7.1 % 5905-5) EOS % (test code = 1.7 % 713-8) BASO % (test code = 0.8 % 706-2) GRAN MAT x10^3(ANC) 4.09 10*3/uL 1.88-7.09 (test code = 9078594384) IMM GRAN x10^3 (test 0.03 10*3/uL 0-0.06 code = 3635398316) LYMPH x10^3 (test code 1.86 10*3/uL 1.32-3.29 = 731-0) MONO x10^3 (test code 0.47 10*3/uL 0.33-0.92 = 742-7) EOS x10^3 (test code = 0.11 10*3/uL 0.03-0.39 711-2) BASO x10^3 (test code 0.05 10*3/uL 0.01-0.07 = 704-7) Lab Interpretation Abnormal (test code = 41226-4) [facility] Allen[facility]id [facility] (Total Cholesterol, Triglycerides, HDL) - [id number] 03:38:00 Test Item Value Reference Range Interpretation Comments CHOL (test code = 138 mg/dL 120-200 5400188445) HDL (test code = 39 mg/dL >50 L 8360121755) HDLC RATIO (test code = See_Comment [Au tomated message] 3604793681) The system Savor generated this result transmit florence reference range : <=4.5. The refe rence range was not u sed to interpret th is result as normal/abnormal . TRIG (test code = 196 mg/dL 30-170 H 3465796198) LDL CHOL (test code = 60 mg/dL See_Comment [Auto mated message] 23605-2) The system Savor generated this result transmit florence reference range : <=160. The refe rence range was not u sed to interpret th is result as normal/abnormal . VLDL (test code = 39 mg/dL 5-60 5288382572) Lab Interpretation (test Abnormal code = 22915-9) [facility] (NA, K, CL, CO2, GLUCOSE, BUN, CREATININE, CA)2018-12-26 03:38:00 Test Item Value Reference Range Interpretation Comments NA (test code = 138 mmol/L 135-145 7554618372) K (test code = 3.1 mmol/L 3.5-5 L 7802673555) CL (test code = 104 mmol/L 98-108 6884546251) CO2 TOTAL (test code = 25 mmol/L 23-31 1930726344) AGAP (test code = 2-16 7772461161) BUN (test code = 13 mg/dL 7-23 2219621830) GLUCOSE (test code = 110 mg/dL 70-110 2894776447) CREATININE (test code = 0.82 mg/dL 0.5-1.04 3681362800) CALCIUM (test code = 9.6 mg/dL 8.6-10.6 8633609968) eGFR Calculation mL/min/1.73m2 (Non-) (test code = 4605335480) eGFR Calculation mL/min/1.73m2 () (test code = 5634646743) BIB (test code = BIB) Association of [...] tests). Lab Interpretation Abnormal (test code = 05916-4) [facility]HEPAT[facility] FUNCTION PAN[facility] (58282) (ALB,T.PRO,BILI T,BU/BC,ALT,AST,ALK PHOS)2018-12-26 03:38:00 Test Item Value Reference Range Interpretation Comments TOTAL BILI (test code = 1007915579) 0.8 mg/dL 0.1-1.1 BILI UNCON (test code = 7720473852) 0.5 mg/dL 0.1-1.1 BILI CONJ (test code = 7388692342) 0.0 mg/dL 0-0.3 T PROTEIN (test code = 9376853320) 7.1 g/dL 6.3-8.2 ALBUMIN (test code = 8519913902) 4.3 g/dL 3.5-5 ALK PHOS (test code = 3716569683) 68 U/L 34-122 ALT(SGPT) (test code = 6630249131) 25 U/L 9-51 AST(SGOT) (test code = 1766245415) 39 U/L 13-40 Lab Interpretation (test code = Normal 86750-4) [facility] AllenMagnesium [id number] 03:38:00 Test Item Value Reference Range Interpretation Comments MAGNESIUM (test code = 3284116446) 2.1 mg/dL 1.7-2.4 Lab Interpretation (test code = Normal 36650-2) [facility] AllenPhosphorus [id number] 03:38:00 Test Item Value Reference Range Interpretation Comments PHOSPHORUS (test code = 2159863796) 3.6 mg/dL 2.5-5 Lab Interpretation (test code = Normal 65849-8) [facility] AllenCB WITH [id number] 03:07:00 Test Item Value Reference Range Interpretation Comments WBC (test code = See_Comment [Automated 1090-2) message] The sy stem which generated this result transmitted reference range : 4.30 - 11.10 10*3/?L. The reference range was not used to interpret this result as normal/abnormal . RBC (test code = See_Comment L [Automated 149-8) message] The sy stem which generated this [...] RDW-SD (test code = 44.5 fL 39-49.9 06863-8) RDW-CV (test code = 13.4 % 12-15.5 788-0) PLT (test code = See_Comment [Automated 777-3) message] The sy stem which generated this result transmitted reference range : 166 - 358 10*3/ ?L. The reference r alyssa was not used to interpret this result as normal/abnormal . MPV (test code = 9.2 fL 9.5-12.9 L 92941-8) NRBC/100 WBC (test See_Comment [Automat ed code = 6461014658) message] The system which generated this result transmitted reference range : 0.0 - 10.0 /100 WBCs. The refer ence range was not u sed to interpret th is result as normal/abnormal . NRBC x10^3 (test code <0.01 See_Comment [Auto mated = 6726970052) message] The s ystem which generated this result transmitted reference range : 10*3/?L. The reference range was not used to interpret this result as normal/abnormal . GRAN MAT (NEUT) % 61.8 % (test code = 770-8) IMM GRAN % (test code 0.30 % = 7695016647) LYMPH % (test code = 28.1 % 736-9) MONO % (test code = 7.3 % 5905-5) EOS % (test code = 1.7 % 713-8) BASO % (test code = 0.8 % 706-2) GRAN MAT x10^3(ANC) 4.09 10*3/uL 1.88-7.09 (test code = 0076783730) IMM GRAN x10^3 (test <0.03 0-0.06 code = 7074726636) LYMPH x10^3 (test code 1.86 10*3/uL 1.32-3.29 = 731-0) MONO x10^3 (test code 0.48 10*3/uL 0.33-0.92 = 742-7) EOS x10^3 (test code = 0.11 10*3/uL 0.03-0.39 711-2) BASO x10^3 (test code 0.05 10*3/uL 0.01-0.07 = 704-7) Lab Interpretation Abnormal (test code = 64346-8) [facility]2018-12-26 02:25:00 Test Item Value Reference Range Interpretation Comments POCT GLU (test code = 3221726229) 116 mg/dL 70-110 H Lab Interpretation (test code = Abnormal 31310-2) [facility] AllenURINE IMMUNOFIXATION, [id number] 09:34:00 Test Item Value Reference Range Interpretation [...] light chain restriction. Clinical correlation is recommended. [id number] Aaron Hopper MD (electronic (BEAKER) (test code signature) = 2603) POCT-GLUCOSE [id number] 12:36:00 Test Item Value Reference Range Interpretation Comments POC-GLUCOSE METER 178 mg/dL 70-110 H TESTED AT [facility] [address] (BEAKER) (test code = [place] 1538) [address] POCT-GLUCOSE [id number] 08:06:00 Test Item Value Reference Range Interpretation Comments POC-GLUCOSE METER 145 mg/dL 70-110 H TESTED AT [facility] [address] (BEAKER) (test code = [place] 1538) [address] BASIC METABOLIC [id number] 07:28:00 Test Item Value Reference Range Interpretation [...] S NOT APPLICABLE FOR DIALYSIS PATIEN TS. [id number] 07:14:00 Test Item Value Reference Range Interpretation Comments PHOSPHORUS (BEAKER) (test code = 3.4 mg/dL 2.3-4.7 604) [id number] 07:14:00 Test Item Value Reference Range Interpretation Comments MAGNESIUM (BEAKER) (test code = 1.8 mg/dL 1.6-2.6 627) [id number] 06:41:00 Test Item Value Reference Range Interpretation Comments PARTIAL THROMBOPLASTIN TIME 27.7 seconds 22.5-36.0 (BEAKER) (test code = 760) CBC W/PLT COUNT & AUTO [id number] 06:30:00 Test Item Value Reference Range Interpretation [...] PERCENT (BEAKER) (test code = 2801) POCT-GLUCOSE [id number] 21:51:00 Test Item Value Reference Range Interpretation Comments POC-GLUCOSE METER 142 mg/dL 70-110 H TESTED AT [place] [address] [facility] (test code = DOMINIQUE Meyer [facility] 1538) [address] POCT-GLUCOSE [id number] 18:00:00 Test Item Value Reference Range Interpretation Comments POC-GLUCOSE METER 139 mg/dL 70-110 H TESTED AT [place] [address] ([facility]) (test code = DOMINIQUE Meyer [facility] 1538) [address] POCT-GLUCOSE [id number] 13:00:00 Test Item Value Reference Range Interpretation Comments POC-GLUCOSE METER 166 mg/dL 70-110 H TESTED AT [place] [address] ([facility]) (test code = DOMINIQUE Meyer [facility] 1538) [address] POCT-GLUCOSE [id number] 09:00:00 Test Item Value Reference Range Interpretation Comments POC-GLUCOSE METER 151 mg/dL 70-110 H TESTED AT [facility] [address] (BEAKER) (test code = [place] 1538) [address] COMPREHENSIVE METABOLIC [id number] 06:08:00 Test Item Value Reference Range Interpretation [...] S NOT APPLICABLE FOR DIALYSIS PATIEN TS. [id number] 06:03:00 Test Item Value Reference Range Interpretation Comments PHOSPHORUS (BEAKER) (test code = 3.1 mg/dL 2.3-4.7 604) [id number] 06:03:00 Test Item Value Reference Range Interpretation Comments MAGNESIUM (BEAKER) (test code = 1.9 mg/dL 1.6-2.6 627) [id number] 05:01:00 Test Item Value Reference Range Interpretation Comments PARTIAL THROMBOPLASTIN TIME 82.6 seconds 22.5-36.0 H (BEAKER) (test code = 760) CALCIUM, [id number] 04:52:00 Test Item Value Reference Range Interpretation Comments CALCIUM IONIZED (BEAKER) (test 1.17 mmol/L 1.12-1.27 code = 698) PH, BLOOD (BEAKER) (test code = 7.43 1810) CBC W/PLT COUNT & AUTO [id number] 04:46:00 Test Item Value Reference Range Interpretation [...] PERCENT (BEAKER) (test code = 2801) POCT-GLUCOSE [id number] 21:21:00 Test Item Value Reference Range Interpretation Comments POC-GLUCOSE METER 134 mg/dL 70-110 H TESTED AT [facility] [address] (BEAKER) (test code = [place] 1538) [address] BASIC METABOLIC [id number] 18:26:00 Test Item Value Reference Range Interpretation [...] NOT APPLICABLE FOR DIALYSIS PATIEN TS. POCT-GLUCOSE [id number] 18:21:00 Test Item Value Reference Range Interpretation Comments POC-GLUCOSE METER 164 mg/dL 70-110 H TESTED AT [facility] [address] (BEAKER) (test code = DOMINIQUE [place] 1538) [address] POCT-GLUCOSE [id number] 11:12:00 Test Item Value Reference Range Interpretation Comments POC-GLUCOSE METER 160 mg/dL 70-110 H TESTED AT [facility] [address] (BEAKER) (test code = DOMINIQUE [place] 1538) [address] COMPREHENSIVE METABOLIC [id number] 05:14:00 Test Item Value Reference Range Interpretation [...] S NOT APPLICABLE FOR DIALYSIS PATIEN TS. [id number] 05:12:00 Test Item Value Reference Range Interpretation Comments PHOSPHORUS (BEAKER) (test code = 2.7 mg/dL 2.3-4.7 604) [id number] 05:12:00 Test Item Value Reference Range Interpretation Comments MAGNESIUM (BEAKER) (test code = 2.0 mg/dL 1.6-2.6 627) [id number] 05:05:00 Test Item Value Reference Range Interpretation Comments PARTIAL THROMBOPLASTIN TIME 78.0 seconds 22.5-36.0 H (BEAKER) (test code = 760) CALCIUM, [id number] 04:53:00 Test Item Value Reference Range Interpretation Comments CALCIUM IONIZED (BEAKER) (test 1.18 mmol/L 1.12-1.27 code = 698) PH, BLOOD (BEAKER) (test code = 7.41 1810) CBC W/PLT COUNT & AUTO [id number] 04:44:00 Test Item Value Reference Range Interpretation [...] PERCENT (BEAKER) (test code = 2801) POCT-GLUCOSE [id number] 21:33:00 Test Item Value Reference Range Interpretation Comments POC-GLUCOSE METER 138 mg/dL 70-110 H TESTED AT [facility] [address] (BEAKER) (test code = JONEROD I[place]ARR[place] 1538) [address] BASIC METABOLIC [id number] 18:05:00 Test Item Value Reference Range Interpretation [...] I S NOT APPLICABLE FOR DIALYSIS PATIEN JESSI. [id number] 13:04:00 Test Item Value Reference Range Interpretation Comments PARTIAL THROMBOPLASTIN TIME 71.7 seconds 22.5-36.0 H (BEAKER) (test code = 760) POCT-GLUCOSE [id number] 12:11:00 Test Item Value Reference Range Interpretation Comments POC-GLUCOSE METER 158 mg/dL 70-110 H TESTED AT [facility] [address] (BEAKER) (test code = [place] 1538) [address] COMPREHENSIVE METABOLIC [id number] 06:52:00 Test Item Value Reference Range Interpretation [...] S NOT APPLICABLE FOR DIALYSIS PATIEN TS. [id number] 06:47:00 Test Item Value Reference Range Interpretation Comments PHOSPHORUS (BEAKER) (test code = 2.8 mg/dL 2.3-4.7 604) [id number] 06:47:00 Test Item Value Reference Range Interpretation Comments MAGNESIUM (BEAKER) (test code = 1.6 mg/dL 1.6-2.6 627) CBC W/PLT COUNT & AUTO [id number] 06:42:00 Test Item Value Reference Range Interpretation [...] WBC 0-0 (BEAKER) (test code = 413) [id number] 06:35:00 Test Item Value Reference Range Interpretation Comments PARTIAL THROMBOPLASTIN TIME 73.5 seconds 22.5-36.0 H (BEAKER) (test code = 760) CALCIUM, [id number] 06:31:00 Test Item Value Reference Range Interpretation Comments CALCIUM IONIZED (BEAKER) (test 1.09 mmol/L 1.12-1.27 L code = 698) PH, BLOOD (BEAKER) (test code = 7.43 1810) [id number] 00:08:00 Test Item Value Reference Range Interpretation Comments PARTIAL THROMBOPLASTIN TIME 90.3 seconds 22.5-36.0 H (BEAKER) (test code = 760) POCT-GLUCOSE [id number] 21:20:00 Test Item Value Reference Range Interpretation Comments POC-GLUCOSE METER 138 mg/dL 70-110 H TESTED AT [facility] [address] (BEAKER) (test code = DOMINIQUE [place] 1538) [address] BASIC METABOLIC [id number] 18:42:00 Test Item Value Reference Range Interpretation [...] S NOT APPLICABLE FOR DIALYSIS PATIEN TS. [id number] 18:26:00 Test Item Value Reference Range Interpretation Comments PARTIAL THROMBOPLASTIN TIME 80.9 seconds 22.5-36.0 H (BEAKER) (test code = 760) POCT-GLUCOSE [id number] 17:22:00 Test Item Value Reference Range Interpretation Comments POC-GLUCOSE METER 129 mg/dL 70-110 H TESTED AT [place] [address] ([facility]) (test code = DOMINIQUE Meyer [facility] [place] 1538) [address] POCT-GLUCOSE [id number] 12:51:00 Test Item Value Reference Range Interpretation Comments POC-GLUCOSE METER 240 mg/dL 70-110 H TESTED AT [place] [address] ([facility]) (test code = DOMINIQUE Meyer [facility] [place] 1538) [address] [id number] 12:31:00 Test Item Value Reference Range Interpretation Comments RPR SCREEN ([facility]) (test code = Nonreactive Nonreactive 420) [id number] 12:18:00 Test Item Value Reference Range Interpretation Comments PARTIAL THROMBOPLASTIN TIME 61.7 seconds 22.5-36.0 H ([facility]) (test code = 760) EOSINOPHIL SMEAR, [id number] 10:02:00 Test Item Value Reference Range Interpretation Comments EOSINOPHIL SMEAR, URINE Rare EOS =less than No EOS seen A ([facility]) (test code = 5% WBCs seen are EOS 1851) POCT-GLUCOSE [id number] 09:06:00 Test Item Value Reference Range Interpretation Comments POC-GLUCOSE METER 137 mg/dL 70-110 H TESTED AT [place] [address] ([facility]) (test code = DOMINIQUE Meyer [facility] [place] 1538) [address] CREATININE, RANDOM [id number] 08:22:00 Test Item Value Reference Range Interpretation Comments CREATININE URINE (BEAKER) (test 54.1 mg/dL code = 375) Reference Range: No NormalsPROTEIN, RANDOM [id number] 08:22:00 Test Item Value Reference Range Interpretation Comments PROTEIN, URINE (BEAKER) (test code = 44 mg/dL 0-14 H 1569) VITAMIN B12 AND [id number] 08:14:00 Test Item Value Reference Range Interpretation Comments VITAMIN B12 (BEAKER) (test code = 455 pg/mL 213-816 774) FOLATE (BEAKER) (test code = 362) 9.9 ng/mL >=7.0 COMPREHENSIVE METABOLIC [id number] 06:59:00 Test Item Value Reference Range Interpretation [...] S NOT APPLICABLE FOR DIALYSIS PATIEN TS. [id number] 06:34:00 Test Item Value Reference Range Interpretation Comments PHOSPHORUS (BEAKER) (test code = 3.2 mg/dL 2.3-4.7 604) [id number] 06:34:00 Test Item Value Reference Range Interpretation Comments MAGNESIUM (BEAKER) (test code = 1.7 mg/dL 1.6-2.6 627) URINALYSIS W/ [id number] 04:37:00 Test Item Value Reference Range Interpretation [...] = Few 1585) SOURCE(BEAKER) (test code = 6065) [id number] 04:21:00 Test Item Value Reference Range Interpretation Comments PARTIAL THROMBOPLASTIN TIME 53.5 seconds 22.5-36.0 H (BEAKER) (test code = 760) CBC W/PLT COUNT & AUTO [id number] 04:09:00 Test Item Value Reference Range Interpretation [...] PERCENT (BEAKER) (test code = 2801) CALCIUM, [id number] 04:08:00 Test Item Value Reference Range Interpretation Comments CALCIUM IONIZED (BEAKER) (test 1.12 mmol/L 1.12-1.27 code = 698) PH, BLOOD (BEAKER) (test code = 7.44 1810) POCT-GLUCOSE [id number] 21:13:00 Test Item Value Reference Range Interpretation Comments POC-GLUCOSE METER 126 mg/dL 70-110 H TESTED AT [facility] [address] (BEAKER) (test code = DOMINIQUE IRIZARRY 1538) [address] BASIC METABOLIC [id number] 18:33:00 Test Item Value Reference Range Interpretation [...] NOT APPLICABLE FOR DIALYSIS PATIEN TS. POCT-GLUCOSE [id number] 18:12:00 Test Item Value Reference Range Interpretation Comments POC-GLUCOSE METER 147 mg/dL 70-110 H TESTED AT [place] [address] ([facility]) (test code = DOMINIQUE Meyer [facility] 1538) [address] POCT-GLUCOSE [id number] 13:42:00 Test Item Value Reference Range Interpretation Comments POC-GLUCOSE METER 136 mg/dL 70-110 H TESTED AT [place] [address] ([facility]) (test code = DOMINIQUE Meyer [facility] 1538) [id number] POCT-GLUCOSE [id number] 09:22:00 Test Item Value Reference Range Interpretation Comments POC-GLUCOSE METER 134 mg/dL 70-110 H TESTED AT [place] [address] ([facility]) ([facility] = [facility] 1538) [address] B-TYPE NATRIURETIC FACTOR (BNP)2018-11-30 02:02:00 Test Item Value Reference Range Interpretation Comments B-TYPE NATRIURETIC PEPTIDE (BEAKER) 747 pg/mL 0-100 H (test code = 700) TROPONIN [id number] 01:55:00 Test Item Value Reference Range Interpretation [...] failure, acidosis, acute neurological disease, and persistent tachyarrhythmia.[id number] 01:55:00 Test Item Value Reference Range Interpretation Comments PARTIAL THROMBOPLASTIN TIME 73.6 seconds 22.5-36.0 H (BEAKER) (test code = 760) COMPREHENSIVE METABOLIC [id number] 01:49:00 Test Item Value Reference Range Interpretation [...] S NOT APPLICABLE FOR DIALYSIS PATIEN TS. [id number] 01:48:00 Test Item Value Reference Range Interpretation Comments PHOSPHORUS (BEAKER) (test code = 3.5 mg/dL 2.3-4.7 604) [id number] 01:48:00 Test Item Value Reference Range Interpretation Comments MAGNESIUM (BEAKER) (test code = 1.8 mg/dL 1.6-2.6 627) CALCIUM, [id number] 01:27:00 Test Item Value Reference Range Interpretation Comments CALCIUM IONIZED (BEAKER) (test 1.07 mmol/L 1.12-1.27 L code = 698) PH, BLOOD (BEAKER) (test code = 7.41 1810) CBC W/PLT COUNT & AUTO [id number] 01:25:00 Test Item Value Reference Range Interpretation [...] PERCENT (BEAKER) (test code = 2801) POCT-GLUCOSE [id number] 21:31:00 Test Item Value Reference Range Interpretation Comments POC-GLUCOSE METER 125 mg/dL 70-110 H TESTED AT [facility] ([facility]) (test code = [facility] 1538) [address] TROPONIN [id number] 18:55:00 Test Item Value Reference Range Interpretation [...] acidosis, acute neurological disease, and persistent tachyarrhythmia.POCT-GLUCOSE [id number] 18:04:00 Test Item Value Reference Range Interpretation Comments POC-GLUCOSE METER 140 mg/dL 70-110 H TESTED AT [facility] ([facility]) (test code = [facility] 1538) [address] BASIC METABOLIC [id number] 17:31:00 Test Item Value Reference Range Interpretation [...] NOT APPLICABLE FOR DIALYSIS PATIEN TS. POCT-GLUCOSE [id number] 13:03:00 Test Item Value Reference Range Interpretation Comments POC-GLUCOSE METER 137 mg/dL 70-110 H TESTED AT [facility] ([facility]) (test code = [place] 1538) [address] TROPONIN [id number] 12:03:00 Test Item Value Reference Range Interpretation Comments TROPONIN I (BEAKER) (test code = 0.06 ng/mL 0.00-0.03 H [...] failure, acidosis, acute neurological disease, and persistent tachyarrhythmia.[id number] 11:43:00 Test Item Value Reference Range Interpretation Comments PARTIAL THROMBOPLASTIN TIME 72.3 seconds 22.5-36.0 H (BEAKER) (test code = 760) POCT-GLUCOSE [id number] 08:15:00 Test Item Value Reference Range Interpretation Comments POC-GLUCOSE METER 131 mg/dL 70-110 H TESTED AT [facility] (BEAKER) (test code = [place] 1538) [address] [id number] 05:18:00 Test Item Value Reference Range Interpretation Comments PARTIAL THROMBOPLASTIN TIME 74.2 seconds 22.5-36.0 H (BEAKER) (test code = 760) [id number] 03:28:00 Test Item Value Reference Range Interpretation Comments PARTIAL THROMBOPLASTIN TIME 136.3 seconds 22.5-36.0 H (BEAKER) (test code = 760) COMPREHENSIVE METABOLIC [id number] 02:40:00 Test Item Value Reference Range Interpretation [...] S NOT APPLICABLE FOR DIALYSIS PATIEN TS. [id number] 02:21:00 Test Item Value Reference Range Interpretation Comments PHOSPHORUS (BEAKER) (test code = 3.2 mg/dL 2.3-4.7 604) [id number] 02:21:00 Test Item Value Reference Range Interpretation Comments MAGNESIUM (BEAKER) (test code = 1.8 mg/dL 1.6-2.6 627) CALCIUM, [id number] 02:03:00 Test Item Value Reference Range Interpretation Comments CALCIUM IONIZED (BEAKER) (test 1.06 mmol/L 1.12-1.27 L code = 698) PH, BLOOD (BEAKER) (test code = 7.39 1810) CBC W/PLT COUNT & AUTO [id number] 01:57:00 Test Item Value Reference Range Interpretation [...] PERCENT (BEAKER) (test code = 2801) POCT-GLUCOSE [id number] 21:08:00 Test Item Value Reference Range Interpretation Comments POC-GLUCOSE METER 119 mg/dL 70-110 H TESTED AT [place] [address] ([facility]) [facility] 1538) [address] POCT-GLUCOSE [id number] 20:09:00 Test Item Value Reference Range Interpretation Comments POC-GLUCOSE METER 111 mg/dL 70-110 H TESTED AT [place] [address] ([facility]) ([facility] 1538) [address] [id number] 19:38:00 Test Item Value Reference Range Interpretation Comments PARTIAL THROMBOPLASTIN TIME 73.3 seconds 22.5-36.0 H (BEAKER) (test code = 760) BASIC METABOLIC [id number] 16:43:00 Test Item Value Reference Range Interpretation [...] NOT APPLICABLE FOR DIALYSIS PATIEN TS. POCT-GLUCOSE [id number] 13:17:00 Test Item Value Reference Range Interpretation Comments POC-GLUCOSE METER 143 mg/dL 70-110 H TESTED AT [facility] (BEAKER) (test code = [place] 1538) [address] URINE PROTEIN ELECTROPHORESIS, [id number] 10:08:00 Test Item Value Reference Range Interpretation Comments PROTEIN, URINE 66 mg/dL 0-14 H (BEAKER) (test code = 1569) ALBUMIN URINE ELP 38.9 % (BEAKER) (test code = 1018) GAMMA GLOBULIN URINE 61.1 % (BEAKER) (test code = 1015) UPEP, ID-438 (BEAKER) Indistinct banding in (test code = 2604) gamma region. Urine MARKEL ordered for further clarification. [id number] Cyn Burgos MD (BEAKER) (test code = (electronic signature) 6127) [id number] 09:20:00 Test Item Value Reference Range Interpretation Comments PARTIAL THROMBOPLASTIN TIME 41.1 seconds 22.5-36.0 H (BEAKER) (test code = 760) Prior to initiating heparinPROTEIN ELECTROPHORESIS, [id number] 08:56:00 Test Item Value Reference Range Interpretation [...] acute inflammation. No 2615) monoclonal bands detected. [id number] Cyn Burgos MD (BEAKER) (test code = (electronic signature) 4288) PROTEIN TOTAL SERUM, 5.9 gm/dL 6.0-8.3 L SPEP (BEAKER) (test code = 7610) POCT-GLUCOSE [id number] 08:36:00 Test Item Value Reference Range Interpretation Comments POC-GLUCOSE METER 144 mg/dL 70-110 H TESTED AT [facility] (BEAKER) (test code = [place] [place] 1538) [address] COMPREHENSIVE METABOLIC [id number] 05:48:00 Test Item Value Reference Range Interpretation [...] S NOT APPLICABLE FOR DIALYSIS PATIEN TS. [id number] 05:01:00 Test Item Value Reference Range Interpretation Comments PHOSPHORUS (BEAKER) (test code = 4.9 mg/dL 2.3-4.7 H 604) [id number] 05:01:00 Test Item Value Reference Range Interpretation Comments MAGNESIUM (BEAKER) (test code = 1.9 mg/dL 1.6-2.6 627) CBC W/PLT COUNT & AUTO [id number] 04:32:00 Test Item Value Reference Range Interpretation [...] PERCENT (BEAKER) (test code = 2801) CALCIUM, [id number] 04:19:00 Test Item Value Reference Range Interpretation Comments CALCIUM IONIZED (BEAKER) (test 1.06 mmol/L 1.12-1.27 L code = 698) PH, BLOOD (BEAKER) (test code = 7.37 1810) POCT-GLUCOSE [id number] 22:00:00 Test Item Value Reference Range Interpretation Comments POC-GLUCOSE METER 116 mg/dL 70-110 H TESTED AT [facility] (BEAKER) (test code = [place] 1538) [address] POCT-GLUCOSE [id number] 17:59:00 Test Item Value Reference Range Interpretation Comments POC-GLUCOSE METER 130 mg/dL 70-110 H TESTED AT [facility] (BEAKER) (test code = [place] 1538) [address] BASIC METABOLIC [id number] 17:01:00 Test Item Value Reference Range Interpretation [...] PATIEN TS. RHEUMATOID FACTOR AB, REFLEX TO [id number] 14:07:00 Test Item Value Reference Range Interpretation Comments RHEUMATOID FACTOR (BEAKER) (test Negative code = 573) POCT-GLUCOSE [id number] 12:15:00 Test Item Value Reference Range Interpretation Comments POC-GLUCOSE METER 152 mg/dL 70-110 H TESTED AT [facility] ([facility]) (test code = [place] 1538) [address] ANTI-NUCLEAR ANTIBODY (JUAN)2018-11-27 10:16:00 Test Item Value Reference Range Interpretation Comments ANTI-NUCLEAR ANTIBODY (JUAN) (BEAKER) Negative Negative (test code = 418) Test performed by IFA method.Test performed by IFA method.T4, [id number] 06:28:00 Test Item Value Reference Range Interpretation Comments FREE T4 (BEAKER) (test code = 655) 0.57 ng/dL 0.70-1.48 L [id number] 05:43:00 Test Item Value Reference Range Interpretation Comments FERRITIN (BEAKER) (test code = 361) 264 ng/mL 5-275 TSH/FREE T4 IF [id number] 05:30:00 Test Item Value Reference Range Interpretation Comments THYROID STIMULATING HORMONE 8.31 uIU/mL 0.35-4.94 H (BEAKER) (test code = 772) HEPATITIS PANEL, [id number] 05:26:00 Test Item Value Reference Range Interpretation Comments HEPATITIS A IGM ANTIBODY (BEAKER) Nonreactive Nonreactive (test code = 498) HEPATITIS B CORE IGM ANTIBODY Nonreactive Nonreactive (BEAKER) (test code = 645) HEPATITIS C ANTIBODY (BEAKER) Nonreactive Nonreactive (test code = 367) HEPATITIS B SURFACE ANTIGEN (2) Nonreactive Nonreactive (BEAKER) (test code = 2585) COMPREHENSIVE METABOLIC [id number] 05:13:00 Test Item Value Reference Range Interpretation [...] APPLICABLE FOR DIALYSIS PATIEN TS. COMPLEMENT COMPONENT [id number] 05:10:00 Test Item Value Reference Range Interpretation Comments C4 COMPLEMENT (BEAKER) (test code = 43 mg/dL 15-57 394) COMPLEMENT COMPONENT [id number] 05:10:00 Test Item Value Reference Range Interpretation [...] H (BEAKER) (test code = 700) URIC [id number] 05:02:00 Test Item Value Reference Range Interpretation Comments URIC ACID (BEAKER) (test code = 6.2 mg/dL 2.6-7.2 773) [id number] 05:02:00 Test Item Value Reference Range Interpretation Comments MAGNESIUM (BEAKER) (test code = 2.1 mg/dL 1.6-2.6 627) [id number] 05:02:00 Test Item Value Reference Range Interpretation Comments PHOSPHORUS (BEAKER) (test code = 8.7 mg/dL 2.3-4.7 H 604) CREATINE KINASE (CK)2018-11-27 05:02:00 Test Item Value Reference Range Interpretation Comments CREATINE KINASE TOTAL (BEAKER) (test 546 U/L 29-200 H code = 380) RETICULOCYTE [id number] 04:40:00 Test Item Value Reference Range Interpretation Comments RETICULOCYTE COUNT PCT (BEAKER) (test 0.9 % 0.5-1.7 code = 575) CBC W/PLT COUNT & AUTO [id number] 04:40:00 Test Item Value Reference Range Interpretation [...] PERCENT (BEAKER) (test code = 2801) CALCIUM, [id number] 04:33:00 Test Item Value Reference Range Interpretation Comments CALCIUM IONIZED (BEAKER) (test 1.00 mmol/L 1.12-1.27 L code = 698) PH, BLOOD (BEAKER) (test code = 7.36 1810) POCT-GLUCOSE [id number] 04:20:00 Test Item Value Reference Range Interpretation Comments POC-GLUCOSE METER 110 mg/dL 70-110 TESTED AT [facility] (BEAKER) (test code = [place] 1538) [address] BASIC METABOLIC [id number] 20:54:00 Test Item Value Reference Range Interpretation [...] NOT APPLICABLE FOR DIALYSIS PATIEN TS. POCT-GLUCOSE [id number] 18:14:00 Test Item Value Reference Range Interpretation Comments POC-GLUCOSE METER 109 mg/dL 70-110 TESTED AT [facility] (BEAKER) (test code = [place] 1538) [address] EOSINOPHIL SMEAR, [id number] 16:26:00 Test Item Value Reference Range Interpretation Comments EOSINOPHIL SMEAR, URINE Positive = greater No EOS seen A (BEAKER) (test code = than 5% WBCs are EOS 1851) CREATININE, RANDOM [id number] 15:55:00 Test Item Value Reference Range Interpretation Comments CREATININE URINE (BEAKER) (test 43.0 mg/dL code = 375) Reference Range: No NormalsPROTEIN, RANDOM [id number] 15:55:00 Test Item Value Reference Range Interpretation Comments PROTEIN, URINE (BEAKER) (test code = 66 mg/dL 0-14 H 1569) SODIUM, RANDOM [id number] 15:55:00 Test Item Value Reference Range Interpretation Comments SODIUM URINE (BEAKER) (test code = 89 meq/L 243) Reference Range: No NormalsURINALYSIS W/ [id number] 15:52:00 Test Item Value Reference Range Interpretation [...] SOURCE(BEAKER) (test code = 2795) U/S, RENAL, [id number] 15:05:00Reason for exam:->renal failureFINAL REPORT TECHNIQUE: Grayscale [...] [place] Verified Date/Time: 11/26/2018 15:05:19 Reading Location: [address] Radiology Reading [facility] [id number] 11:50:00 Test Item Value Reference Range Interpretation [...] NOT APPLICABLE FOR DIALYSIS PATIEN TS. HEMOGLOBIN [id number] 11:39:00 Test Item Value Reference Range Interpretation Comments HEMOGLOBIN A1C (BEAKER) (test code = 7.2 % 4.3-6.1 H 368) POCT-GLUCOSE [id number] 11:34:00 Test Item Value Reference Range Interpretation Comments POC-GLUCOSE METER 96 mg/dL 70-110 TESTED AT [facility] (BEAKER) (test code = [place] [address] 1538) CREATININE, RANDOM [id number] 08:00:00 Test Item Value Reference Range Interpretation Comments CREATININE URINE (BEAKER) (test 55.9 mg/dL code = 375) Reference Range: No NormalsSODIUM, RANDOM [id number] 08:00:00 Test Item Value Reference Range Interpretation Comments SODIUM URINE (BEAKER) (test code = 69 meq/L 243) Reference Range: No NormalsUREA NITROGEN, RANDOM [id number] 08:00:00 Test Item Value Reference Range Interpretation Comments UREA NITROGEN URINE (BEAKER) (test 207 mg/dL code = 538) Reference Range: No NormalsBASIC METABOLIC [id number] 07:16:00 Test Item Value Reference Range Interpretation [...] APPLICABLE FOR DIALYSIS PATIEN TS. HEPATITIS PANEL, [id number] 07:11:00 Test Item Value Reference Range Interpretation Comments HEPATITIS A IGM ANTIBODY (BEAKER) Nonreactive Nonreactive (test code = 498) HEPATITIS B CORE IGM ANTIBODY Nonreactive Nonreactive (BEAKER) (test code = 645) HEPATITIS C ANTIBODY (BEAKER) Nonreactive Nonreactive (test code = 367) HEPATITIS B SURFACE ANTIGEN (2) Nonreactive Nonreactive (BEAKER) (test code = 2585) [id number] 07:09:00 Test Item Value Reference Range Interpretation Comments MAGNESIUM (BEAKER) (test code = 2.6 mg/dL 1.6-2.6 627) TROPONIN [id number] 07:02:00 Test Item Value Reference Range Interpretation [...] acute neurological disease, and persistent tachyarrhythmia.URINALYSIS W/ [id number] 06:20:00 Test Item Value Reference Range Interpretation [...] code = 1584) SOURCE(BEAKER) (test code = 7971) BLOOD GAS, [id number] 06:08:00 Test Item Value Reference Range Interpretation [...] (test code = 1819) 21.0 % POCT-GLUCOSE [id number] 05:57:00 Test Item Value Reference Range Interpretation Comments POC-GLUCOSE METER 84 mg/dL 70-110 TESTED AT [facility] (JOE) (test code = [place] [address] 1538) [id number] 04:20:00 Test Item Value Reference Range Interpretation Comments FERRITIN (JOE) (test code = 361) 241 ng/mL 5-275 HIV-1 ANTIGEN WITH HIV-1/2 [id number] 04:15:00 Test Item Value Reference Range Interpretation Comments HIV-1 ANTIGEN WITH HIV 1\\T\\2 Nonreactive Nonreactive ANTIBODY (2) (BEANA) (test code = 2586) RAD, CHEST, 1 VIEW, NON [id number] 04:02:00Reason for exam:->DIALYSIS CATHTER PLACEMENTShould this be [...] Karla Nieves [place] Verified Date/Time: 11/26/2018 04:02:49 Electronically signed by: KARLA NIEVES MD on11/26/2018 04:02 AMPTH, [id number] 04:00:00 Test Item Value Reference Range Interpretation Comments PARATHYROID HORMONE INTACT 375.7 pg/mL 8.5-72.5 H (JOE) (test code = 577) IRON, TIBC, % SAT. (WITHOUT FERRITIN)2018-11-26 03:54:00 Test Item Value Reference Range Interpretation Comments IRON (JOE) (test code = 547) 47.0 ug/dL 40.0-160.0 TOTAL IRON BINDING CAPACITY 309 ug/dL 250-450 (JOE) (test code = 769) IRON % SATURATION (2) (BEAKER) 15 % 20-55 L (test code = 2590) BLOOD GAS, [id number] 03:31:00 Test Item Value Reference Range Interpretation [...] (test code = 1819) 21.0 % T4, [id number] 02:37:00 Test Item Value Reference Range Interpretation Comments FREE T4 (BEAKER) (test code = 655) 0.49 ng/dL 0.70-1.48 L TSH/FREE T4 IF [id number] 01:57:00 Test Item Value Reference Range Interpretation Comments THYROID STIMULATING HORMONE 14.30 uIU/mL 0.35-4.94 H (BEAKER) (test code = 772) TROPONIN [id number] 01:39:00 Test Item Value Reference Range Interpretation [...] 0-100 H (BEAKER) (test code = 700) [id number] 01:35:00 Test Item Value Reference Range Interpretation Comments PHOSPHORUS (BEAKER) (test code = 12.3 mg/dL 2.3-4.7 HH 604) COMPREHENSIVE METABOLIC [id number] 01:34:00 Test Item Value Reference Range Interpretation [...] NOT APPLICABLE FOR DIALYSIS PATIEN TS. LIPID [id number] 01:33:00 Test Item Value Reference Range Interpretation Comments TRIGLYCERIDES (BEAKER) (test code = 201 mg/dL 540) CHOLESTEROL (BEAKER) (test code = 112 mg/dL 631) HDL CHOLESTEROL (BEAKER) (test code 25 mg/dL = 976) LDL CHOLESTEROL CALCULATED (BEAKER) 47 mg/dL (test code = 633) Triglyceride Reference Range: Low Risk <150 Borderline 150-199 High Risk 200- 499 Very High Risk >=500Cholesterol Reference Range: Low Risk <200 Borderline 200-239 High Risk >240HDL Cholesterol Reference Range: Low Risk >=60 High Risk <40LDL Cholesterol Reference Range: Optimal <100 Near Optimal 100-129 Borderline 130-159 High 160-189 Very High >=190CREATINE KINASE (CK)2018-11-26 01:33:00 Test Item Value Reference Range Interpretation Comments CREATINE KINASE TOTAL (BEAKER) (test 668 U/L 29-200 H code = 380) [id number] 01:31:00 Test Item Value Reference Range Interpretation Comments MAGNESIUM (BEAKER) (test code = 2.6 mg/dL 1.6-2.6 627) [id number] 01:29:00 Test Item Value Reference Range Interpretation [...] 2.5-3.5 for patients wiht mechanical heart valves.PROTHROMBIN TIME/[id number] 01:28:00 Test Item Value Reference Range Interpretation [...] for patients wiht mechanical heart valves.LACTIC ACID, [id number] 01:24:00 Test Item Value Reference Range Interpretation Comments LACTATE BLOOD VENOUS 1.7 mmol/L 0.5-2.2 Specime n slightly (2) (BEAKER) (test hemolyzed code = 2872) RAD, CHEST, 1 VIEW, NON [id number] 01:15:00Reason for exam:->Elevated BNPShould this be performed at the bedside?->YesFINAL REPORT Chest, 1 view. History: Elevated BNP. Comparison: None available. I MPRESSION: Cardiac mediastinal silhouette within normal limits. Postsurgical changes of a median sternotomy with fractured second most superior sternotomy wire. Pulmonary vasculature is exaggerated by technique. No lobar consolidation or pleural effusion. No pneumothorax. Osseous structures are grossly unremarkable. Signed: Karla Nieves [facility] Verified Date/Time: 11/26/2018 01:15:17 CBC W/PLT COUNT & AUTO [id number] 01:14:00 Test Item Value Reference Range Interpretation [...] % 0-1 PERCENT (BEAKER) (test code = 1645)
--- NOTE | 2022-05-22 02:11 | EDPHYS ---
Physician Documentation [facility] Name: Renetta Dey Age: 71 yrs Sex: Female : 1950 Arrival Date: 05/22/2022 Time: 01:53 Bed 4 Private MD: ED Physician Jamar Gaspar HPI: 05/22 04:03 This 71 yrs old Female presents to ER via Wheelchair with complaints of kdr Breathing Difficulty, Altered Mental Status. 04:03 Patient has had a stroke recently and has difficulty communicating. History is gathered kdr from the family/. Noted that the patient was satting in the 70% range at home on room air. Did not note that she had been complaining of any particular problem.. 04:04 Patient's brought her to the ED for further evaluation.. Onset: The kdr symptoms/episode began/occurred just prior to arrival, yesterday. Severity of symptoms: At their worst the symptoms were severe in the emergency department the symptoms have improved moderately. It is unknown whether or not the patient has had similar symptoms in the past. The patient has been recently seen by a physician: The patient has been recently been admitted at [facility], was discharged last week. Historical: - Allergies: 02:14 No Known Drug Allergies; aa9 04:30 "no allergies that i know of"; kl - Home Meds: 04:30 amlodipine 10 mg tab 1 tab once daily [Active]; duloxetine 20 mg Oral cpDR 1 cap 2 kl times per day [Active]; Eliquis 5 mg Oral tab 1 tab 2 times per day [Active]; ezetimibe 10 mg Oral tab 1 tab once daily [Active]; furosemide 40 mg Oral tab 1 tab once daily [Active]; gabapentin 600 mg Oral tab 1 tab twice a day [Active]; rosuvastatin 20 mg Oral tab 1 tab once daily [Active]; - PMHx: 02:14 Back pain; CVA; Diabetes - IDDM; ESRD; Hypertension; aa9 04:30 CHF; kl - PSHx: 02:14 CABG; cardiac stents; Cholecystectomy; Peripheral stent; Phen pop bypass; aa9 - Immunization history:: Client reports receiving the 2nd dose of the Covid vaccine. - Social history:: Smoking status: Patient/guardian denies using tobacco, Stopped _ months ago 2. ROS: 04:04 Constitutional: Negative for fever, chills, and weight loss, Eyes: Negative for injury, kdr pain, redness, and discharge, Neck: Negative for injury, pain, and swelling, Abdomen/GI: Negative for abdominal pain, nausea, vomiting, diarrhea, and constipation, Back: Negative for injury and pain, : Negative for injury, bleeding, discharge, and swelling, MS/Extremity: Negative for injury and deformity, Allergy/Immunology: Negative for hives, rash, and allergies, Endocrine: Negative for neck swelling, polydipsia, polyuria, polyphagia, and marked weight changes, Hematologic/Lymphatic: Negative for swollen nodes, abnormal bleeding, and unusual bruising. 04:04 Cardiovascular: Positive for chest pain, bradycardia, Negative for 04:04 Respiratory: Positive for dyspnea on exertion, shortness of breath, at rest. Exam: 04:04 Constitutional: This is a well developed, well nourished patient who is awake, alert, kdr slow to respond and in minor distress. Head/Face: Normocephalic, atraumatic. Eyes: Pupils equal round and reactive to light, extra-ocular motions intact. Lids and lashes normal. Conjunctiva and sclera are non-icteric and not injected. Cornea within normal limits. Periorbital areas with no swelling, redness, or edema. Neck: Trachea midline, no thyromegaly or masses palpated, and no cervical lymphadenopathy. Supple, full range of motion without nuchal rigidity, or vertebral point tenderness. No Meningismus. Psych: Awake, alert, with orientation to person, place and time. Behavior, mood, and affect are within normal limits. 04:04 Cardiovascular: Rate: bradycardic, Rhythm: junctional, Pulses: weak, Edema: pedal edema, that is mild. Vital Signs: 02:10 BP 130 / 92; Pulse 67; Resp 28 S; Temp 98.6(O); Pulse Ox 93% on 4 lpm NC; Weight 90.72 aa9 kg (R); Height 5 ft. 3 in. (160.02 cm) (R); 02:21 BP 130 / 92; Pulse 48; Resp 24; Pulse Ox 94% on 4 lpm NC; kl 03:40 BP 166 / 50; Pulse 45; Resp 24; Pulse Ox 95% on 4 lpm NC; kl 02:10 Body Mass Index 35.43 (90.72 kg, 160.02 cm) aa9 MDM: 02:10 Patient medically screened. kdr 04:11 Data reviewed: vital signs, nurses notes. Consideration of Admission/Observation kdr Patient was admitted/placed on observation. Escalation of care including admission/observation considered. Management of patient was discussed with the following: Hospitalist: Sundeep. 05/22 02:01 Order name: Basic Metabolic Panel; Complete Time: 03:39 kdr 05/22 02:01 Order name: CBC with Diff; Complete Time: 03:39 kdr 05/22 02:01 Order name: D-Dimer; Complete Time: 03:39 kdr 05/22 02:01 Order name: NT PRO-BNP; Complete Time: 03:39 kdr 05/22 02:01 Order name: Troponin HS; Complete Time: 03:39 kdr 05/22 02:28 Order name: COVID-19/FLU A+B; Complete Time: 04:06 mw2 05/22 02:01 Order name: XRAY Chest (1 view) kdr 05/22 02:01 Order name: EKG; Complete Time: 02:02 kdr 05/22 02:01 Order name: Cardiac monitoring; Complete Time: 02:10 kdr 05/22 02:01 Order name: EKG - Nurse/Tech; Complete Time: 02:10 kdr 05/22 02:01 Order name: IV Saline Lock; Complete Time: 02:10 kdr 05/22 03:57 Order name: Chest For Pe Angio EDMS 05/22 02:01 Order name: Labs collected and sent; Complete Time: 02:55 kdr 05/22 02:01 Order name: O2 Per Protocol; Complete Time: 02:10 kdr 05/22 02:01 Order name: O2 Sat Monitoring; Complete Time: 02:10 kdr Administered Medications: 02:31 Not Given (Physician Discretion): Amoxicillin 500 mg PO once aa9 02:31 Not Given (Physician Discretion): traMADol 50 mg PO once aa9 Disposition Summary: 05/22/22 04:02 Hospitalization Ordered Hospitalization Status: Inpatient Admission kdr Provider: Toño Willis kdr Location: Intensive Care Unit(05/22/22 04:02) kdr Condition: Fair(05/22/22 04:02) kdr Problem: new(05/22/22 04:02) kdr Symptoms: have improved(05/22/22 04:02) kdr Bed/Room Type: Standard kdr Room Assignment: 1-(05/22/22 04:16) mw Diagnosis - Congestive heart Failure, bradycardia (40's), hypoxia (70% RA) kdr Forms: - Medication Reconciliation Form kdr - SBAR form kdr Signatures: Dispatcher [employer] Tammy Mccall RN RN kl Webb, Martha, RN RN mw Rittger, Kevin, MD MD kdr Avalos, Aylin, RN RN aa9 Brown, Sophia, PAMiguel A PAMiguel A sb4 Corrections: (The following items were deleted from the chart) 02:13 02:10 Home kdr kdr 02:13 02:10 new kdr kdr 02:13 02:10 have improved kdr kdr 02:13 02:10 Fair kdr kdr 02:13 02:10 Dental abscess kdr kdr 04:16 04:02 kdr mw
[2022-05-22] MEDS ORDERED: AMOXICILLIN TRIHYDR 250 MG CAP ONE (02:29)
[2022-05-22] MEDS ORDERED: TRAMADOL HCL 50 MG TAB ONE (02:29)
[2022-05-22 03:26] LABS: Absolute Lymphocytes (CBC) 1.5 K/uL (0.7-4.9); Hematocrit 32.4 % (36.0-45.0); Lymphocytes % 7.5 % (15.3-44.8); MCV 85.5 fL (80-100); MPV 8.7 fL (7.6-11.3); RBC Red Blood Cell Count 3.79 M/uL (3.86-4.86)
[2022-05-22 03:35] LABS: Troponin High Sensitivity 32.3 pg/mL (<58.9)
[2022-05-22 03:53] LABS: SARS-COV-2 RT PCR NEGATIVE (NEGATIVE)
--- NOTE | 2022-05-22 04:03 | ER ---
Nurse's Notes [facility] Name: Renetta Dey Age: 71 yrs Sex: Female : 1950 Arrival Date: 05/22/2022 Time: 01:53 Bed 4 Private MD: Diagnosis: Congestive heart Failure, bradycardia (40's), hypoxia (70% RA) Presentation: 05/22 02:10 Chief complaint: Spouse and/or significant other states: Her O2 sats were 72 at home, aa9 she does not use oxygen at home. She was here for CHF about a week ago and 6 weeks prior for a stroke, She does have speech problems from the stroke. Coronavirus screen: Vaccine status: Patient reports receiving the 2nd dose of the covid vaccine. Ebola Screen: No symptoms or risks identified at this time. Initial Sepsis Screen: Does the patient meet any 2 criteria? RR > 20 per min. Altered Mental Status. Yes Does the patient have a suspected source of infection? No. Patient's initial sepsis screen is negative. Risk Assessment: Do you want to hurt yourself or someone else? Patient reports no desire to harm self or others. Onset of symptoms was May 22, 2022. 02:10 Method Of Arrival: Wheelchair aa9 02:10 Acuity: ELEAZAR 2 aa9 02:21 Note ROOM, AIR SAT 80%. Triage Assessment: 02:15 General: Appears uncomfortable, obese, Behavior is cooperative. Pain: Denies pain. aa9 Neuro: Level of Consciousness is awake, obeys commands, Oriented to person, place, Speech with expressive aphasia noted. Cardiovascular: Patient's skin is warm and dry. Rhythm is junctional rhythm. Respiratory: Reports shortness of breath at rest Airway is patent Respiratory effort is even, labored, Respiratory pattern is tachypnea Onset: The symptoms/episode began/occurred today, the patient has mild shortness of breath. GI: No signs and/or symptoms were reported involving the gastrointestinal system. : No signs and/or symptoms were reported regarding the genitourinary system. Derm: Skin is intact, is fragile, Skin is pale. Musculoskeletal: No signs and/or symptoms reported regarding the musculoskeletal system. Historical: - Allergies: 02:14 No Known Drug Allergies; aa9 04:30 "no allergies that i know of"; kl - Home Meds: 04:30 amlodipine 10 mg tab 1 tab once daily [Active]; duloxetine 20 mg Oral cpDR 1 cap 2 kl times per day [Active]; Eliquis 5 mg Oral tab 1 tab 2 times per day [Active]; ezetimibe 10 mg Oral tab 1 tab once daily [Active]; furosemide 40 mg Oral tab 1 tab once daily [Active]; gabapentin 600 mg Oral tab 1 tab twice a day [Active]; rosuvastatin 20 mg Oral tab 1 tab once daily [Active]; - PMHx: 02:14 Back pain; CVA; Diabetes - IDDM; ESRD; Hypertension; aa9 04:30 CHF; kl - PSHx: 02:14 CABG; cardiac stents; Cholecystectomy; Peripheral stent; Phen pop bypass; aa9 - Immunization history:: Client reports receiving the 2nd dose of the Covid vaccine. - Social history:: Smoking status: Patient/guardian denies using tobacco, Stopped _ months ago 2. Screenin:17 Abuse screen: Denies threats or abuse. Denies injuries from another. Nutritional aa9 screening: No deficits noted. Tuberculosis screening: No symptoms or risk factors identified. 04:30 [facility] ED Fall Risk Assessment (Adult) History of falling in the last 3 months, kl including since admission No falls in past 3 months (0 pts) Confusion or Disorientation Yes (5 pts) Intoxicated or Sedated No (0 pts) Impaired Gait Yes (1 pt) Mobility Assist Device Used No (0 pt) Altered Elimination Yes (1 pt) Score/Fall Risk Level 3 or more points = High Risk Oriented to surroundings, Maintained a safe environment, Apply high fall risk patient identification: yellow non skid footwear/ fall signage. Assessment: 02:19 General: Appears distressed, uncomfortable, well developed, Behavior is cooperative, kl anxious. Cardiovascular: Capillary refill is > 3 seconds Rhythm is junctional rhythm. Cardiovascular: EDEMA TO LOWERI EXTREMITIES. Respiratory: Airway is patent Trachea midline Respiratory effort is labored, with nasal flaring, Respiratory pattern is tachypnea Breath sounds are diminished bilaterally. Vital Signs: 02:10 BP 130 / 92; Pulse 67; Resp 28 S; Temp 98.6(O); Pulse Ox 93% on 4 lpm NC; Weight 90.72 aa9 kg (R); Height 5 ft. 3 in. (160.02 cm) (R); 02:21 BP 130 / 92; Pulse 48; Resp 24; Pulse Ox 94% on 4 lpm NC; kl 03:40 BP 166 / 50; Pulse 45; Resp 24; Pulse Ox 95% on 4 lpm NC; kl 02:10 Body Mass Index 35.43 (90.72 kg, 160.02 cm) aa9 ED Course: 01:53 Patient arrived in ED. ja2 02:00 Jamar Gaspar MD is Attending Physician. kdr 02:14 Triage completed. aa9 02:17 Arm band placed on. aa9 02:17 Placed in gown. Bed in low position. Call light in reach. Side rails up X2. Adult w/ aa9 patient. Family accompanied patient. 02:19 Inserted saline lock: 20 gauge in right forearm, using aseptic technique. kl 02:21 XRAY Chest (1 view) In Process Unspecified. EDMS 02:54 Initial lab(s) drawn, by me, sent to lab. Accessed peripheral vein via ultrasound, bb utilizing dynamic ultrasound technique Powerglide midline 18g 10cm to right upper arm using hospital protocol with good blood return and flushes easily pt tolerated well. 03:32 Notified ED physician of a critical lab result(s). DDimer 940 Dr Gaspar notified. bb 04:00 Toño Willis MD is Hospitalizing Provider. kdr 04:30 No provider procedures requiring assistance completed. Patient admitted, IV remains in kl place. Administered Medications: 02:31 Not Given (Physician Discretion): Amoxicillin 500 mg PO once aa9 02:31 Not Given (Physician Discretion): traMADol 50 mg PO once aa9 Medication: 04:31 VIS not applicable for this client. kl Outcome: 02:10 Discharge ordered by . kdr 04:02 Decision to Hospitalize by Provider. kdr 04:29 Admitted to ICU accompanied by nurse, via stretcher, room 1, with oxygen, on monitor, with chart, Report called to [facility] 04:29 Condition: stable 04:29 Discharge instructions given to patient, family, Instructed on the need for admit, Demonstrated understanding of instructions. 04:49 Patient left the ED. kl Signatures: Dispatcher [employer] EDMN Tammy Norris RN RN kl Rittger, Kevin, MD MD kdr Ballard, Brenda, RN RN bb Alexander, Jessica [facility] Akins, Maria L, RN RN aa9
--- NOTE | 2022-05-22 04:10 | P.HP ---
Certification for Inpatient Patient admitted to: Inpatient With expected LOS: >2 Midnights Patient will require the following post-hospital care: None Practitioner: I am a practitioner with admitting privileges, knowledge of patient current condition, hospital course, and medical plan of care. Services: Services provided to patient in accordance with Admission requirements found in Title 42 Section 412.3 of the Code of Federal Regulations <Julia Urbano - Last Filed: 05/22/22 05:14> Patient History Date of Service: 05/22/22 Primary Care Provider: Odell Zurita Reason for admission: CHF Exacerbation, Hypoxia, Bradycardia History of Present Illness: Patient is a 71-year-old female with history of chronic diastolic congestive heart failure, recent left MCA CVA with resulting- expressive aphasia, right- sided weakness, right foot drop, partial left basilic vein thrombosis- CAD status post CABG, hypertension, dyslipidemia, insulin-dependent diabetes, paroxysmal A. fib on Eliquis, and hypothyroidism who presented to the emergency department for shortness of breath, hypoxia. Her checked her oxygen saturation at home and noted she was 72% on room air. She improved to 95% in the ED with supplemental oxygen. Her labs are significant for WBC 19.5, hgb 10.5, ddimer 940, BNP 1550. Chest xray showed "Diffuse interstitial edema and Blunting of the left costophrenic angle which may indicate left pleural effusion." Chest CTA showed "No evidence of pulmonary embolism. Improved bilateral pleural effusions and minimal bibasilar atelectasis." She was also noted to be bradycardic, consistently staying in the 40s, she is on sotalol BID. Her EKG showed a junctional rhythm with a prolonged QT. Patient will be admitted to ICU for further management. Home medications list reviewed: Yes - Past Medical/Surgical History Diabetic: Yes -: Diabetesinsulin-dependent -: Hypertension -: Atrial fibrillationon chronic anticoagulation -: CAD with CABG -: CHFdiastolic -: Kidney failure -: CVAexpressive aphasia/right-sided weakness -: triple bypass 2002 -: carotid artery sx 2002 -: GB surgery 2002 -: Fempop sx 2006 Psychosocial/ Personal History: Patient lives at home with her . - Family History Mother -: Cancer - Social History Smoking Status: Former smoker Alcohol use: No CD- Drugs: No Caffeine use: Yes Place of Residence: Home <Julia Urbano - Last Filed: 05/22/22 05:14> Date of Service: 05/22/22 <Toño Willis - Last Filed: 05/22/22 10:27> Home Medications: RX: Amlodipine [Norvasc*] 10 mg PO DAILY 04/19/22 RX: Apixaban [Eliquis] 5 mg PO BID 04/19/22 RX: Duloxetine [Cymbalta *] 20 mg PO BEDTIME 04/19/22 RX: Folic Acid 1 mg PO DAILY 04/19/22 RX: Gabapentin [Neurontin] 900 mg PO BEDTIME PRN PRN 04/19/22 RX: Levothyroxine [Synthroid*] 2 tab PO DAILY 04/19/22 RX: Melatonin 10 mg PO BEDTIME PRN 04/19/22 RX: Rosuvastatin Calcium [Crestor] 20 mg PO BEDTIME 04/19/22 RX: Furosemide [Lasix] 40 mg PO DAILY 05/02/22 RX: Insulin 70/30 NPH/Reg Human [Novolin 70/30*] 30 unit SQ DAILY WITH BREAKFAST #10 ml 05/02/22 RX: Aspirin 81 mg PO DAILY 05/13/22 RX: Cyanocobalamin (Vitamin B-12) [Vitamin B12] 5,000 mcg PO DAILY 05/13/22 RX: Mv-Mn/Iron/Folic Acid/Herb 190 [Vitamin D3 Complete Caplet] 1 tab PO DAILY 05/13/22 RX: Benzonatate [Tessalon Perle*] 100 mg PO TID PRN #20 cap 05/16/22 RX: Sotalol HCl [Betapace*] 80 mg PO BID 6AM 6PM #60 tab 05/16/22 Review of Systems Respiratory: Shortness of Breath <Julia Urbano - Last Filed: 05/22/22 05:14> Physical Examination - Vital Signs Temperature: 98.6 F Blood Pressure: 130/92 Pulse: 48 Respirations: 24 Pulse Ox (%): 95 (4L) - Physical Exam General: Alert, In no apparent distress HEENT: Atraumatic, PERRLA, EOMI, Sclerae nonicteric Neck: Supple, 2+ carotid pulse no bruit Respiratory: Diminished Cardiovascular: Regular rate/rhythm, Normal S1 S2 Gastrointestinal: Normal bowel sounds, No tenderness Musculoskeletal: No tenderness Integumentary: No rashes Neurological: Sensation intact, Abnormal speech - Studies Laboratory Data (last 24 hrs) 05/22/22 02:45: WBC 19.50 H, Hgb 10.5 L, Hct 32.4 L, Plt Count 323 05/22/22 02:45: Sodium 134 L, Potassium 4.0, BUN 32 H, Creatinine 1.13 H, Glucose 289 H <SundeepJulia - Last Filed: 05/22/22 05:14> - Studies Laboratory Data (last 24 hrs) 05/22/22 02:45: WBC 19.50 H, Hgb 10.5 L, Hct 32.4 L, Plt Count 323 05/22/22 02:45: Sodium 134 L, Potassium 4.0, BUN 32 H, Creatinine 1.13 H, Glucose 289 H <Toño Willis - Last Filed: 05/22/22 10:27> Assessment and Plan - Problems (Diagnosis) (1) Congestive heart failure Current Visit: Yes Status: Acute Qualifiers: Heart failure type: diastolic Heart failure chronicity: acute on chronic Qualified Code(s): I50.33 - Acute on chronic diastolic (congestive) heart failure (2) Acute respiratory failure with hypoxia Current Visit: Yes Status: Acute (3) Afib Current Visit: Yes Status: Chronic Qualifiers: Atrial fibrillation type: paroxysmal Qualified Code(s): I48.0 - Paroxysmal atrial fibrillation (4) CAD (coronary artery disease) Current Visit: Yes Status: Chronic Qualifiers: Coronary Disease-Associated Artery/Lesion type: bypass graft [place] vs. transplanted heart: [place] heart Associated angina: without angina Qualified Code(s): I25.810 - Atherosclerosis of coronary artery bypass graft(s) without angina pectoris (5) Chronic kidney disease Current Visit: Yes Status: Chronic Qualifiers: Chronic kidney disease stage: stage 3 (moderate) Chronic kidney disease stage 3 subtype: stage 3a (GFR 45-59) Qualified Code(s): N18.31 - Chronic kidney disease, stage 3a (6) Diabetes Current Visit: Yes Status: Chronic Qualifiers: Diabetes mellitus type: type 2 Diabetes mellitus residential insulin use: with residential use Diabetes mellitus complication status: with hyperglycemia Qualified Code(s): E11.65 - Type 2 diabetes mellitus with hyperglycemia; Z79.4 - assisted (current) use of insulin (7) Hypertension Current Visit: Yes Status: Chronic Qualifiers: Hypertension type: primary hypertension Qualified Code(s): I10 - Essential (primary) hypertension - Plan Patient is admitted for further management of acute hypoxic respiratory failure secondary to congestive heart failure. She is currently requiring 4L NC when she does not typically require any. Titrate and wean as tolerated. CTA showing improvement in bilateral pleural effusions and minimal bibasilar atelectasis. Diuresis with IV lasix, cardiology to be consulted. WBC elevated at 19. Chest CTA not showing any evidence of pneumonia. No other source of infection identified. Urine pending. Recent echocardiogram shows mild tricuspid regurgitation, mitral annular calcification, aortic sclerosis, normal left ventricular EF. Heart rate has consistently been in the 40s with a junctional rhythm. Most likely secondary to sotalol. Will hold for now. Monitor on telemetry. PT & speech therapy consult as patient still with expressive aphasia, right foot drop, right upper and lower extremity weakness. Recent A1c 9.5. Continue sliding scale insulin and home 70/30 dose. Continue home eliquis for VTE prophylaxis. Full code. Discharge Plan: Home Plan to discharge in: Greater than 2 days - Advance Directives Does patient have a Living Will: No Does patient have a Durable POA for Healthcare: No - Code Status/Comfort Care Code Status Assessed: Yes Code Status: Full Code Physician Review: Patient Assessed, Agree with Above Assessment and Plan Critical Care: No Time Spent Managing Pts Care (In Minutes): 50 <Julia Urbano - Last Filed: 05/22/22 05:14> Physician Review: Patient Assessed, Agree with Above Assessment and Plan <Toño Willis - Last Filed: 05/22/22 10:27>
[2022-05-22] MEDS ORDERED: FUROSEMIDE 40 MG/4 ML VIAL IV ONE (05:32)
[2022-05-22] MEDS ORDERED: D50W 25 GM/50 ML SYRINGE IV PRN (05:32)
[2022-05-22] MEDS ORDERED: ACETAMINOPHEN 500 MG TAB PO PRN (05:32)
[2022-05-22] MEDS ORDERED: IPRATROPIUM BROM 0.5MG/2.5ML NEB PRN (05:32)
[2022-05-22] MEDS ORDERED: GLUCAGON 1 MG/VIAL IM PRN (05:32)
[2022-05-22] MEDS ORDERED: ALBUTEROL 2.5 MG/3 ML NEB SOL NEB PRN ×2 (05:32→15:00)
[2022-05-22 05:36] VITALS: BMI 35.4
[2022-05-22 08:03] LABS: Specific Gravity > 1.030 (1.005-1.030); Urine Bacteria None Seen /HPF (<20); Urine Bilirubin NEGATIVE (Negative); Urine Blood Negative (Negative); Urine Clarity Clear (Clear); Urine Color Light-Yellow (Yellow); Urine Glucose NEGATIVE (Negative); Urine Mucus Slight /HPF (None Seen); Urine Protein TRACE (Negative); Urine RBC <5 /HPF (None Seen); Urine Urobilinogen Normal (Normal)
[2022-05-22] MEDS: INSULIN 70/30 100 UNITS/ML SQ SCH (08:43)
[2022-05-22] MEDS: INSULIN -REGULAR HUMAN 50 UNIT/0.5 ML ML SQ SCH ×4 (08:43→22:09)
[2022-05-22] MEDS: APIXABAN 5 MG TABLET PO SCH ×2 (08:44→22:09)
[2022-05-22] MEDS ORDERED: PNEUMOCOCCAL VACCINE 0.5 ML IMVAC ONE (14:00)
--- NOTE | 2022-05-22 15:39 | RAD REPORT ---
EXAM DESCRIPTION: CT - Chest For Pe Angio - 05/22/2022 6:58 am CLINICAL HISTORY: The patient is 71 years old and is Female; CHF vs PNA elevated ddimer TECHNIQUE: Axial computed tomographic angiography images of the chest with intravenous contrast. S agittal and coronal reformatted images were created and reviewed. This CT exam was performed using one or more of the following dose reduction techniques: automated exposure control, adjustment of t he mA and/or kV according to patient size, and/or use of iterative reconstruction technique. MIP reconstructed images were created and reviewed. COMPARISON: CTA of the chest May 13, 2022. FINDINGS: PULMONARY ARTERIES: There are no obvious filling defects identified within the pulmonary arteries to suggest pulmonary embolism. AORTA: No acute findings. No thoracic aortic aneurysm. LUNGS: Minimal dependent densities in the lung bases are noted. No mass. PLEURAL SPACE: Small bilateral pleural effusions are present. No pneumothorax. HEART: The heart is enlarged. There is no pericardial effusion. No evidence of RV dysfunction. BONES/JOINTS: Median sternotomy is present. No acute fracture. No dislocation. SOFT TISSUES: Unremarkable. LYMPH NODES: Unremarkable. No enlarged lymph nodes. IMPRESSION: 1. No evidence of pulmonary embolism. 2. Improved bilateral pleural effusions and minimal bibasilar atelectasis. Electronically signed by: Pallavi Alcala MD 05/22/2022 5:00 AM SHADE CUTTER Due to temporary technical issues with the PACS/Fluency reporting system, reports are being signed by the in house radiologists without review as a courtesy to insure prompt reporting. The interpreting radiologist is fully responsible for the content of the report
--- NOTE | 2022-05-22 15:47 | RAD REPORT ---
EXAM DESCRIPTION: RAD - Chest Single View - 05/22/2022 2:19 am CLINICAL HISTORY: The patient is 71 years old and is Female; Chest pain TECHNIQUE: Frontal view of the chest. COMPARISON: No relevant prior studies available. FINDINGS: Lungs: Diffuse interstitial edema. Pleural space: Blunting of the left costophrenic angle which may indicate left pleural effusion. No pneumothorax. Heart: Unremarkable.. Mediastinum: Unremarkable. Bones/joints: Median sternotomy wires. IMPRESSION: 1. Diffuse interstitial edema. 2. Blunting of the left costophrenic angle which may indicate left pleural effusion. Electronically signed by: Ezequiel Almonte MD 05/22/2022 2:35 AM MAGAZINE WRITER Due to temporary technical issues with the PACS/Fluency reporting system, reports are being signed by the in house radiologists without review as a courtesy to insure prompt reporting. The interpreting radiologist is fully responsible for the content of the report
--- NOTE | 2022-05-22 17:31 | EKG ---
Test Date: 2022-05-22 Test Time: 02:04:54 Database Support: MARIO MEASUREMENT RESULTS: Intervals: Rate: 47 [place]: QRSD: 84 QT: 656 QTc: 580 [place]: P: [place]: QRS: 82 T: 76 INTERPRETIVE STATEMENTS: Junctional rhythm Nonspecific ST abnormality Prolonged QT Abnormal ECG Compared to ECG 05/13/2022 17:44:19 Junctional rhythm now present ST (T wave) deviation now present Prolonged QT interval now present Atrial fibrillation no longer present Myocardial infarct finding no longer present Electronically Signed On 05-22-22 17:30:42 MEDICAL CLERK by Blas Mcdermott
[2022-05-23 05:24] LABS: Hematocrit 27.9 % (36.0-45.0); Lymphocytes % 11.6 % (15.3-44.8); MCV 84.9 fL (80-100); MPV 8.5 fL (7.6-11.3); RBC Red Blood Cell Count 3.29 M/uL (3.86-4.86)
[2022-05-23 05:44] LABS: Potassium 3.5 mmol/L (3.5-5.1)
[2022-05-23] MEDS ORDERED: FUROSEMIDE 40 MG/4 ML VIAL IV ONE (06:18)
[2022-05-23] MEDS: INSULIN -REGULAR HUMAN 50 UNIT/0.5 ML ML SQ SCH ×4 (07:28→20:13)
[2022-05-23] MEDS: INSULIN 70/30 100 UNITS/ML SQ SCH (07:29)
[2022-05-23] MEDS: APIXABAN 5 MG TABLET PO SCH ×2 (07:30→20:13)
--- NOTE | 2022-05-23 10:20 | P.PN ---
Subjective Date of Service: 05/23/22 Primary Care Provider: Odell Zurita Chief Complaint: CHF Exacerbation, Hypoxia, Bradycardia No acute events overnight. Her heart rate has been better controlled. She states that she feels well today compared to yesterday. However, when the nursing staff attempts to wean her off of oxygen, she de-saturates with SpO2 readings in the mid-80s on room air. Review of Systems 10-point ROS is otherwise unremarkable Respiratory: Shortness of Breath (mild) Cardiovascular: Edema Physical Examination - Vital Signs Temperature: 97.4 F Blood Pressure: 149/48 Pulse: 85 Respirations: 21 Pulse Ox (%): 99 Assessment And Plan - Plan Physical Exam General: Alert, In no apparent distress, Oriented x3 HEENT: Atraumatic, Mucous membr. moist/pink, EOMI, Sclerae nonicteric Neck: JVD not distended Respiratory: Diminished, Faint bibasilar rales/crackles Cardiovascular: 1-2+ bilateral lower extremity pitting edema, Regular rate/rhythm, Normal S1 S2, No gallops, No rubs, No murmurs Gastrointestinal: Normal bowel sounds, Soft and benign, Non-distended, No tenderness, No rebound, No guarding Musculoskeletal: No clubbing Neurological: Sensation intact, Cranial nerves 3-12 intact, Other (Mild expressive aphasia appreciated. Right foot drop noted.) - Plan # Acute Hypoxic Respiratory Failure secondary to Acute on Chronic Decompensated Diastolic Congestive Heart Failure with Preserved Ejection Fraction # Bradycardia likely secondary to Sotalol - Consult Cardiology and spoke with Dr. Pierson - recommendations appreciated - Chest x-ray = "1. Diffuse interstitial edema. 2. Blunting of the left costophrenic angle which may indicate left pleural effusion" - CT chest angiogram = "1. No evidence of pulmonary embolism. 2. Improved bilateral pleural effusions and minimal bibasilar atelectasis." - Transthoracic echocardiogram (04/04/2022) = "1. mild tricuspid regurgitation. 2. mitral annular calcification 3. aortic sclerosis 4. 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 - Continue apixaban # Tobacco Use Disorder - Continue nicotine patch # Hypothyroidism - Continue home levothyroxine Toño Willis M.D.
[2022-05-23] MEDS ORDERED: GABAPENTIN 300 MG CAP PO PRN (10:28)
[2022-05-23] MEDS ORDERED: ROSUVASTATIN 10 MG TAB PO SCH (21:00)
[2022-05-24 05:31] LABS: Potassium 3.3 mmol/L (3.5-5.1)
[2022-05-24] MEDS ORDERED: LEVOTHYROXINE SOD 0.125 MG TAB PO SCH (06:30)
[2022-05-24] MEDS ORDERED: POTASSIUM CL SA 10 MEQ TAB PO ONE (07:30)
[2022-05-24] MEDS: INSULIN -REGULAR HUMAN 50 UNIT/0.5 ML ML SQ SCH (07:36)
[2022-05-24] MEDS: INSULIN 70/30 100 UNITS/ML SQ SCH (07:37)
--- NOTE | 2022-05-24 08:15 | P.DS ---
Admission Date: 05/22/22 Discharge Date: 05/24/22 Primary Care Provider: Odell Zurita Disposition: ROUTINE DISCHARGE Discharge Condition: GOOD Reason for Admission: CHF Exacerbation, Hypoxia, Bradycardia Consultations: 1. 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 Renetta Dey is a pleasant 71-year-old female with a past medical history significant for chronic diastolic congestive heart failure, recent left MCA cerebrovascular accident complicated by residual expressive aphasia, bilateral carotid artery stenosis, prior left basilic vein thrombosis on apixaban, coronary artery disease s/p CABG, hypertension, dyslipidemia, type 2 diabetes mellitus, paroxysmal atrial fibrillation, and hypothyroidism who was admitted to the [facility] on 05/22/2022 for shortness of breath and bradycardia. She was admitted to the Medicine service. Upon further evaluation, she was found to have acute hypoxic respiratory failure which was thought to be secondary to acute on chronic decompensated diastolic congestive heart failure exacerbation. Additionally, she was noted to be bradycardic. Cardiology was consulted, and she was evaluated by Dr. Pierson. He felt that her symptoms were secondary to sotalol usage, so he recommended discontinuing sotalol and monitoring her in the hospital. She was treated with IV furosemide, with significant improvement of her symptoms. This morning, she was on room air with adequate SpO2 readings. Her heart rates have normalized. She stated that she felt well and would like to be discharged home. Dr. Pierson has cleared her for discharge home with close outpatient follow-up. He has recommended that sotalol be discontinued at discharge. On 05/24/2022, she was seen on morning rounds and deemed medically stable for discharge. She was discharged with instructions to schedule follow-up appointments with her PCP (Dr. Zurita) and with Cardiology (Dr. Pierson). She was given the opportunity to ask questions and reported no further questions. Furthermore, all questions were answered to the best of my ability. A copy of this discharge summary will be sent to the above providers to facilitate continuity of care. Today, I personally spent 25 minutes on his case, of which greater than 50% of the time was spent in patient education, counseling, and coordination of care as described above. Physical Exam General: Alert, In no apparent distress, Oriented x3 HEENT: Atraumatic, Mucous membr. moist/pink, Sclerae nonicteric Neck: JVD not distended Respiratory: Diminished, but clear to auscultation bilaterally without wheezes, rhonchi, or rales Cardiovascular: Trace-1+ bilateral lower extremity pitting edema, Irregular rate/rhythm, No murmurs Gastrointestinal: Non-distended, No tenderness, No rebound, No guarding Musculoskeletal: No clubbing Neurological: Sensation intact, Other (Mild expressive aphasia appreciated. Right foot drop noted.) Vital Signs/Physical Exam: Temp Pulse Resp BP Pulse Ox 97.2 F 87 20 126/99 H 96 05/24/22 04:00 05/24/22 04:00 05/24/22 04:00 05/24/22 04:00 05/24/22 04:00 Laboratory Data at Discharge: WBC 8.70 K/uL (4.3-10.9) 05/23/22 04:45 Hgb 9.3 g/dL (12.0-15.0) L D 05/23/22 04:45 Hct 27.9 % (36.0-45.0) L 05/23/22 04:45 Plt Count 239 K/uL (152-406) D 05/23/22 04:45 Sodium 140 mmol/L (136-145) 05/24/22 04:31 Potassium 3.3 mmol/L (3.5-5.1) L 05/24/22 04:31 BUN 14 mg/dL (7-18) 05/24/22 04:31 Creatinine 0.66 mg/dL (0.55-1.02) 05/24/22 04:31 Glucose 153 mg/dL (74-106) H 05/24/22 04:31 Magnesium 2.0 mg/dL (1.6-2.4) 05/24/22 04:31 Home Medications: Amlodipine [Norvasc*] 10 mg PO DAILY 04/19/22 Apixaban [Eliquis] 5 mg PO BID 04/19/22 Duloxetine [Cymbalta *] 20 mg PO BEDTIME 04/19/22 Folic Acid 1 mg PO DAILY 04/19/22 Gabapentin [Neurontin] 900 mg PO BEDTIME PRN PRN 04/19/22 Levothyroxine [Synthroid*] 2 tab PO DAILY 04/19/22 Melatonin 10 mg PO BEDTIME PRN 04/19/22 Rosuvastatin Calcium [Crestor] 20 mg PO BEDTIME 04/19/22 Furosemide [Lasix] 40 mg PO DAILY 05/02/22 Insulin 70/30 NPH/Reg Human [Novolin 70/30*] 30 unit SQ DAILY WITH BREAKFAST #10 ml 05/02/22 Aspirin 81 mg PO DAILY 05/13/22 Cyanocobalamin (Vitamin B-12) [Vitamin B12] 5,000 mcg PO DAILY 05/13/22 Mv-Mn/Iron/Folic Acid/Herb 190 [Vitamin D3 Complete Caplet] 1 tab PO DAILY 05/13/22 Benzonatate [Tessalon Perle*] 100 mg PO TID PRN #20 cap 05/16/22 Physician Discharge Instructions: PROBLEM: Congestive Heart Failure, Bradycardia GOAL: Clear understanding of disease process INSTRUCTIONS: 1. Please call and schedule a follow-up appointment with your PCP (Dr. Zurita) in 3-5 days 2. Please call and schedule a follow-up appoinment with Cardiology (Dr. Pierson) in 3-5 days Please completely stop taking sotalol. Diet: AHA Activity: As tolerated DME DME: Date Ordered: Name of Company: [employer] Services Needed: Name of Company: Date or Referral: IMMUNIZATION Influenza Vaccine Indicated: No Influenza Vaccine Given: Date Given: Pneumonia Vaccine Indicated: Yes Pneumonia Vaccine Given: Date Given: 1. Please call and schedule a follow-up appointment with your PCP (Dr. Zurita) in 3-5 days 2. Please call and schedule a follow-up appoinment with Cardiology (Dr. Pierson) in 3-5 days Please completely stop taking sotalol. Diet: AHA Activity: Ad chalo Followup: Kalpesh Pierson MD [ACTIVE - CAN ADMIT] - Yusef Zurita MD [ACTIVE - CAN ADMIT] - Time spent managing pt's care (in minutes): 25
[2022-05-24] MEDS: APIXABAN 5 MG TABLET PO SCH (08:33)
[2022-05-24 08:52] VITALS: O2SAT 93
[2022-05-24] MEDS ORDERED: ASPIRIN 81 MG CHEWABLE TABLET PO SCH (09:00)
[2022-05-24 10:48] VITALS: BP 132/73; TEMP 96.4
== END 2022-05-24 09:36 | disposition home or self-care (01) | DRG 291 ==
LOC: ER 01:52 → ERHOLD 04:02 → 3RD-ICU 04:20
PROVIDERS: ADMIT Internal Medicine; ATTEND Internal Medicine
DX: I13.0 Hypertensive heart and chronic kidney disease with heart failure and stage 1 through stage 4 chronic kidney disease, or unspecified chronic kidney disease (principal); I50.33 Acute on chronic diastolic (congestive) heart failure; J96.01 Acute respiratory failure with hypoxia; I69.351 Hemiplegia and hemiparesis following cerebral infarction affecting right dominant side; I25.810 Atherosclerosis of coronary artery bypass graft(s) without angina pectoris; I82.612 Acute embolism and thrombosis of superficial veins of left upper extremity; N18.31 Chronic kidney disease, stage 3a; E11.22 Type 2 diabetes mellitus with diabetic chronic kidney disease; E11.65 Type 2 diabetes mellitus with hyperglycemia; E11.40 Type 2 diabetes mellitus with diabetic neuropathy, unspecified; E03.9 Hypothyroidism, unspecified; I48.0 Paroxysmal atrial fibrillation; E78.5 Hyperlipidemia, unspecified; M21.371 Foot drop, right foot; I69.320 Aphasia following cerebral infarction; I08.3 Combined rheumatic disorders of mitral, aortic and tricuspid valves; I65.23 Occlusion and stenosis of bilateral carotid arteries; R23.3 Spontaneous ecchymoses; R00.1 Bradycardia, unspecified; T44.7X5A Adverse effect of beta-adrenoreceptor antagonists, initial encounter; Z79.4 Long term (current) use of insulin; Z95.5 Presence of coronary angioplasty implant and graft; Z95.1 Presence of aortocoronary bypass graft; Z79.01 Long term (current) use of anticoagulants; Z79.82 Long term (current) use of aspirin; Z90.49 Acquired absence of other specified parts of digestive tract; Z79.899 Other long term (current) drug therapy; Z87.891 Personal history of nicotine dependence; Z79.890 Hormone replacement therapy; Z20.822 Contact with and (suspected) exposure to COVID-19
CPT/HCPCS: 0240U; 36415; 71045; 71275; 80048; 81001; 82947; 83735; 83880; 84484; 85025; 85379; 93005; 97161; 97530; 99285; J1815; J1940; Q9967

== ENCOUNTER 2022-06-22 11:23 | Day surgery (SDC) | payer OTHER ==
[2022-06-19 14:09] LABS: Hematocrit 28.4 % (36.0-45.0); Lymphocytes % 10.4 % (15.3-44.8); MCV 83.7 fL (80-100); MPV 8.3 fL (7.6-11.3); RBC Red Blood Cell Count 3.39 M/uL (3.86-4.86)
--- NOTE | 2022-06-19 14:10 | RAD REPORT ---
EXAM DESCRIPTION: RAD - Chest Pa And Lat (2 Views) - 06/19/2022 2:00 pm CLINICAL HISTORY: Preop for cardiac angiogram. Hypertension. Diabetes. History of triple bypass. COMPARISON: 05/22/2022 and 05/13/2022 TECHNIQUE: PA and lateral views of the chest were obtained. FINDINGS: The lungs are clear. Interval improvement of central interstitial prominence and edema not ed on the prior exam. Heart remains mildly enlarged. Central vasculature is within normal limits. No plueral effusion or pneumothorax seen. No acute bony finding noted. Postsurgical changes of coronary artery bypass grafting again noted. IMPRESSION: No acute cardiopulmonary process. Interval improvement of central congestion pattern on the prior radiograph.
[2022-06-19 14:26] LABS: Potassium 4.1 mmol/L (3.5-5.1)
[2022-06-19 14:52] LABS: Protime INR 1.93
--- NOTE | 2022-06-20 17:13 | EKG ---
Test Date: 2022-06-19 Test Time: 13:38:29 Finishing Tunnel Operator: LISSA MEASUREMENT RESULTS: Intervals: Rate: 83 IN: QRSD: 82 QT: 346 QTc: 406 [place]: P: IN: QRS: 85 T: 165 INTERPRETIVE STATEMENTS: Atrial fibrillation ST & T wave abnormality, consider lateral ischemia or digitalis effect Abnormal ECG Compared to ECG 05/22/2022 02:04:54 Possible ischemia now present Junctional rhythm no longer present Prolonged QT interval no longer present ST (T wave) deviation still present Electronically Signed On 06-20-22 17:09:48 CLINICAL SOCIOLOGIST by Blas Mcdermott
[~2022-06-22 11:23] MED LIST: HEPA 1000U/500MLS 2,000 UNIT/1,000 ML BAG IV ONE; LIDOCAINE 1% 20 ML MDV ONE
[2022-06-22] MEDS ORDERED: NA CHLORIDE 0.9% 500 ML ONE (11:27)
[2022-06-22] MEDS ORDERED: FENTANYL CITR 100 MCG/2 ML ONE (11:54)
[2022-06-22] MEDS ORDERED: MIDAZOLAM HCL 2 MG/2 ML INJ ONE (11:54)
[2022-06-22] MEDS ORDERED: ATROPINE SULF 1 MG/10 ML SYR IV ONE (11:54)
--- NOTE | 2022-06-22 14:04 | OP ---
Date of Procedure: 06/22/2022 Surgeon: LASHAY PADILLA Procedure Performed: Selective bilateral carotid angiogram. Indication: Carotid stenosis. Access: Right femoral artery 4-Iraqi closed with manual pressure. Complications: None. Bleeding: Less than 10 mL. Anesthesia: Total sedation time was 25 minutes. Description Of Procedure: After risks, benefits, alternatives were explained, the patient agreed to the procedure and signed informed consent. The patient was brought into the cardiac catheterization laboratory, prepped and draped in the usual sterile fashion. Then, I accessed the right femoral sariah ry using a micropuncture kit and ultrasound guidance and fluoroscopy, placed a 4-Iraqi pinnacle elkins th, took a 4-Iraqi 3DRC catheter into the aortic root, engaged the right common carotid and then lef t common carotid, took standard views, and then removed the catheter and sheath, placed manual pressu re for closure with good hemostasis. Findings: 1.Right common carotid distally becomes narrowed about 50% to 60% and then the takeoff of the internet assessor al carotid artery on the right is about 70% and there was another focal 40% stenosis distally. 2.The left common carotid has 40% stenosis. Left internal and external carotids appear normal. Conclusion: Severe right common carotid and internal carotid artery stenosis. Recommendation: Endarterectomy on elective basis. SR/MODL Voice ID: [id number] Report ID: [id number]
[2022-06-22 14:54] VITALS: O2SAT 94
[2022-06-22 16:08] VITALS: BP 153/44
== END 2022-06-22 15:40 | disposition home or self-care (01) ==
LOC: CCL 11:23
PROVIDERS: ATTEND Internal Medicine
DX: I65.23 Occlusion and stenosis of bilateral carotid arteries (principal); I25.10 Atherosclerotic heart disease of native coronary artery without angina pectoris; I70.213 Atherosclerosis of native arteries of extremities with intermittent claudication, bilateral legs; I48.0 Paroxysmal atrial fibrillation; I11.0 Hypertensive heart disease with heart failure; I50.9 Heart failure, unspecified; E11.40 Type 2 diabetes mellitus with diabetic neuropathy, unspecified; E78.2 Mixed hyperlipidemia; E66.9 Obesity, unspecified; Z68.35 Body mass index [BMI] 35.0-35.9, adult; Z86.73 Personal history of transient ischemic attack (TIA), and cerebral infarction without residual deficits; Z87.891 Personal history of nicotine dependence; Z79.01 Long term (current) use of anticoagulants; Z79.4 Long term (current) use of insulin; Z79.899 Other long term (current) drug therapy
CPT/HCPCS: 93005; 85025; 80048; 36415; 85610; 85730; 71046; 36222; 76937; C1893; J2001; J2250; J3010; J7040; J1644; J0461

== ENCOUNTER 2023-11-19 14:02 | Inpatient (IN) | payer OTHER ==
--- NOTE | 2023-11-19 15:19 | RAD REPORT ---
EXAM DESCRIPTION: CT - Head C Spine Cap Wo Con - 11/19/2023 2:58 pm CLINICAL HISTORY: Trauma, head and neck injury. Chest, abdomen and pelvis pain. TRAUMA COMPARISON: Head C Spine Cap Wo Con dated 01/13/2023 TECHNIQUE: CT head without contrast. CT cervical spine without contrast with coronal and sagittal reformatted images. CT chest, abdomen and pelvis with coronal and sagittal reformatted images of the spine. All CT scans are performed using dose optimization technique as appropriate and may include automated exposure control or mA/KV adjustment according to patient size. FINDINGS: CT HEAD WITHOUT CONTRAST: No intracranial hemorrhage, hydrocephalus or extra-axial fluid collection. No acute large vascular te rritory infarct. Remote left MCA territory infarct. Right mastoid fluid. The calvarium is intact. CT CERVICAL SPINE WITHOUT CONTRAST: No fracture or subluxation. The prevertebral soft tissues are normal in thickness. CT CHEST, ABDOMEN, PELVIS: Thorax: Chest Wall: No abnormal mass Lungs: No acute abnormality. Pleura: Small bilateral effusions. Cecille/Mediastinum: No lymphadenopathy. Aorta/Pulmonary Arteries: Unremarkable Heart: Mild cardiomegaly. Coronary artery calcifications. Abdomen/Pelvis: Liver: No acute abnormality or suspicious lesions. Biliary: No biliary ductal dilatation. Stomach: No significant focal abnormality. Duodenum: No significant focal abnormality. Pancreas: No significant abnormality. Spleen: No significant abnormality. Adrenal: No suspicious lesions. Kidney/ureter: No hydronephrosis. No renal calculi. Retroperitoneum: No retroperitoneal adenopathy. Vascular: No aneurysm. Bowel: No bowel obstruction. Normal appendix.. Peritoneum: Moderate ascites. Bladder: The bladder is decompressed via Hutchinson catheter. Small volume of bladder gas. Reproductive: No adnexal masses. Bones: New T5 compression fracture which is favored acute or subacute. Less than 20% loss of height. Remote T4 compression fracture. Sternotomy. Chest wall edema. T12 kyphoplasty. Other: n/a IMPRESSION: Acute versus subacute T5 compression fracture with less than 20% loss of height. No bony retropulsion. Anasarca including small bilateral pleural effusions and moderate ascites.
--- NOTE | 2023-11-19 15:20 | RAD REPORT ---
EXAM DESCRIPTION: RAD - Knee Right 3 View - 11/19/2023 3:06 pm CLINICAL HISTORY: PAIN COMPARISON: No comparisons FINDINGS/IMPRESSION: No acute fracture. No malalignment. Small nonspecific knee effusion. Vascular c lips present. Mild medial compartment and lateral compartment spurring. Trace patellofemoral compartm ent spurring.
--- NOTE | 2023-11-19 15:21 | RAD REPORT ---
EXAM DESCRIPTION: RAD - Knee Left 3 View - 11/19/2023 3:06 pm CLINICAL HISTORY: PAIN COMPARISON: Knee Left 3 view dated 11/20/2012 FINDINGS/IMPRESSION: No acute fracture. No malalignment. Mild medial compartment narrowing and spurr ing. Mild to moderate patellofemoral compartment degenerative changes. Mild lateral compartment spurr ing . Vascular clips.
[2023-11-19] MEDS ORDERED: FUROSEMIDE 40 MG/4 ML VIAL ONE (16:30)
[2023-11-19] MEDS ORDERED: ONDANSETRON 4 MG/2 ML VIAL ONE (16:30)
[2023-11-19] MEDS ORDERED: MORPHINE 4 MG/ML SYR ONE (16:31)
[2023-11-19 16:34] LABS: Albumin 3.1 g/dL (3.4-5.0); Albumin/Globulin Ratio 0.8 (1.1-1.8); Anion Gap 8.5 mEq/L (5.0-15.0); Bilirubin Direct 0.8 mg/dL (0-0.2); Bilirubin Indirect, Calculated 0.9 mg/dL (0.2-0.8); Bilirubin Total 1.7 mg/dL (0.2-1.0); Magnesium 2.1 mg/dL (1.6-2.4); Potassium 3.5 mEq/L (3.5-5.1); Protein, Total 7.1 g/dL (6.4-8.2); Troponin High Sensitivity 51.3 pg/mL (<58.9)
[2023-11-19 16:57] LABS: Absolute Basophils 0.2 K/uL (0-0.5); Absolute Eosinophils 0.2 K/uL (0-0.5); Absolute Lymphocytes (CBC) 0.9 K/uL (0.7-4.9); Absolute Monocytes 0.6 K/uL (0.1-1.3); Absolute Neutrophil 6.3 K/uL (1.8-8.0); Basophils % 2.3 % (0-1.3); Eosinophils % 2.2 % (0-4.4); Hematocrit 37.4 % (36.0-45.0); Hemoglobin 10.7 g/dL (12.0-15.0); Lymphocytes % 11.2 % (15.3-44.8); MCH 21.3 pg (27.0-35.0); MCHC 28.7 g/dL (32.0-36.0); MPV 9.7 fL (7.6-11.3); Monocytes % 7.7 % (3.3-12.3); Neutrophils % 76.6 % (41.7-73.7); Nucleated Red Blood Cells % 0.2 % (0-0); Platelets 205 thou/uL (152-406); RBC Red Blood Cell Count 5.06 M/uL (3.86-4.86); Red Cell Distribution Width 20.6 % (12.1-15.2)
--- NOTE | 2023-11-19 17:31 | EDPHYS ---
Physician Documentation [facility] Name: Renetta Dey Age: 73 yrs Sex: Female : 1950 Arrival Date: 11/19/2023 Time: 14:02 Bed 6 Private MD: ED Physician Kailash Johnson HPI: 11/18 17:43 This 73 yrs old Female presents to ER via EMS with complaints of Fall Injury. rt 17:43 Patient presents to the ED with mechanical fall. Patient tripped, did hit her head. rt Unclear if she lost consciousness or not. Reports pain to her back, knees. Denies other acute complaints at this time. Symptoms are moderate in severity, no other aggravating leaving factors. Patient is reportedly not taking her Lasix, does report increasing swelling including to her abdomen.. Historical: - Allergies: 14:20 No Known Allergies; ld1 - Home Meds: 14:20 Eliquis 5 mg oral tablet 1 tab 2 times per day [Active]; ld1 - PMHx: 14:20 Back pain; CHF; CVA; Diabetes - IDDM; ESRD; Hypertension; ld1 - Immunization history:: Adult Immunizations up to date. - Infectious Disease History:: Denies. - Social history:: Smoking status: Patient denies any tobacco usage or history of. - Family history:: not pertinent. ROS: 17:43 Constitutional: Negative for fever, chills, and weight loss, rt 17:43 Neuro: Negative for headache, weakness, numbness, tingling, and seizure, Psych: Negative for depression, anxiety, suicide ideation, homicidal ideation, and hallucinations, 17:43 Cardiovascular: Positive for edema, Negative for chest pain, 17:43 Back: Positive for pain at rest, pain with movement, 17:43 MS/extremity: Positive for contusion, pain, Exam: 17:43 Constitutional: This is a well developed, well nourished patient who is awake, alert, rt and in no acute distress. Head/Face: Normocephalic, atraumatic. 17:43 Chest/axilla: Normal chest wall appearance and motion. Nontender with no deformity. No lesions are appreciated. Cardiovascular: Regular rate and rhythm with a normal S1 and S2. No gallops, murmurs, or rubs. Normal PMI, no JVD. No pulse deficits. Respiratory: Lungs have equal breath sounds bilaterally, clear to auscultation and percussion. No rales, rhonchi or wheezes noted. No increased work of breathing, no retractions or nasal flaring. 17:43 ECG was reviewed by the Attending Physician. 17:43 Abdomen/GI: Edema to the skin, tenderness, 17:43 Musculoskeletal/extremity: 3+ edema to bilateral lower extremities with chronic skin changes. Vital Signs: 14:19 BP 162 / 72; Pulse 66; Resp 18; Temp 97.6(TE); Pulse Ox 100% on R/A; Weight 103.87 kg; ld1 Height 5 ft. 3 in. ; Pain 0/10; 16:49 BP 184 / 69; Pulse 59; Resp 18; Pulse Ox 95% on R/A; ld1 19:40 BP 153 / 74; Pulse 66; Resp 18; Temp 98; Pulse Ox 97% on R/A; Pain 3/10; rg5 14:19 Body Mass Index 40.57 (103.87 kg, 160.02 cm) ld1 14:19 Pain Scale: Adult ld1 19:40 Pain Scale: Adult rg5 [place] Coma Score: 19:40 Eye Response: spontaneous(4). Motor Response: obeys commands(6). Verbal Response: rg5 oriented(5). Total: 15. MDM: 14:18 Patient medically screened. rt 17:43 Differential diagnosis: abrasion, closed head injury, contusion, Anasarca, CHF. Data rt reviewed: vital signs, nurses notes, lab test result(s), EKG, radiologic studies. Consideration of Admission/Observation Patient was admitted/placed on observation. Management of patient was discussed with the following: Hospitalist: Agrees to admit. I considered the following discharge prescriptions or medication management in the emergency department Medications were administered in the Emergency Department. See MAR. Independent interpretation of the following test(s) in the Emergency Department CT Scan: My interpretation is No intracranial hemorrhage seen on interpretation of CT scan images. Care significantly affected by the following chronic conditions: Congestive Heart Failure. Counseling: I had a detailed discussion with the patient and/or guardian regarding the historical points, exam findings, and any diagnostic results supporting the discharge/admit diagnosis, lab results, radiology results, the need for further work-up and treatment in the hospital. Response to treatment: the patient's symptoms have mildly improved after treatment. 11/18 14:28 Order name: Basic Metabolic Panel; Complete Time: 16:46 rt 11/18 14:28 Order name: CBC with Diff; Complete Time: 17:48 rt 11/18 14:28 Order name: LFT's; Complete Time: 16:46 rt 11/18 14:28 Order name: Magnesium; Complete Time: 16:46 rt 11/18 14:28 Order name: NT PRO-BNP; Complete Time: 16:46 rt 11/18 14:28 Order name: Troponin HS; Complete Time: 16:46 rt 11/18 17:39 Order name: Manual Differential; Complete Time: 17:48 EDMS 11/18 14:28 Order name: CT Traumagram (Head C Spine CAP wo con); Complete Time: 15:29 rt 11/18 14:28 Order name: Knee Right 3 View XRAY; Complete Time: 15:29 rt 11/18 14:28 Order name: Knee Left 3 View XRAY; Complete Time: 15:29 rt 11/18 17:58 Order name: Echo with Doppler EDMS 11/18 14:28 Order name: EKG; Complete Time: 14:31 rt 11/18 14:28 Order name: Cardiac monitoring; Complete Time: 14:31 rt 11/18 14:28 Order name: EKG - Nurse/Tech; Complete Time: 16:47 rt 11/18 14:28 Order name: IV Saline Lock; Complete Time: 16:26 rt 11/18 14:28 Order name: Labs collected and sent; Complete Time: 16:09 rt 11/18 14:28 Order name: O2 Per Protocol; Complete Time: 14:31 rt 11/18 14:28 Order name: O2 Sat Monitoring; Complete Time: 14:31 rt 11/18 14:31 Order name: Hutchinson: per Dr. Noel; Complete Time: 14:31 ld1 EC:43 Rate is 61 beats/min. Rhythm is regular, Junctional rhythm with No ectopy. QRS [place] is rt Normal. QRS interval is normal. QT interval is normal. No ST changes noted. Administered Medications: 16:43 Drug: Furosemide IVP 40 mg IVP once; give over 2 minutes Route: IVP; Site: right aa5 antecubital; 16:47 Follow up: Response: No adverse reaction aa5 16:46 Drug: morphine IVP or IV 4 mg IVP once over 4 mins Route: IVP; Infused Over: 4 mins; aa5 Site: right antecubital; 16:46 Drug: Ondansetron IVP 4 mg IVP once; over 2 minutes Route: IVP; Site: right antecubital;aa5 Disposition Summary: 11/19/23 17:30 Hospitalization Ordered Notes: Hospitalization Status: Observation rt Provider: José Calabrese rt Location: Telemetry/MedSurg (observation) rt Condition: Stable rt Problem: new rt Symptoms: are unchanged rt Bed/Room Type: Standard rt Room Assignment: 407(11/19/23 19:00) kmf Diagnosis - Anasarca rt - L5 compression fracture rt Forms: - Medication Reconciliation Form rt - SBAR form rt - Leadership Thank You Letter rt Signatures: Dispatcher [employer] Holly Andrade RN RN aa5 Riana Pringle RN RN ld1 Kailash Johnson MD MD rt Ying Price kmf Corrections: (The following items were deleted from the chart) 14:22 14:20 PSHx: Cholecystectomy; ld1 ld1 14:22 14:20 PSHx: CABG; ld1 ld1 14:22 14:20 PSHx: Phen pop bypass; ld1 ld1 14:22 14:20 PSHx: cardiac stents; ld1 ld1 14:22 14:20 PSHx: Peripheral stent; ld1 ld1 14:22 14:20 PSHx: R carotid SX; ld1 ld1 14:31 14:31 Knee Right 3 View+RAD.RAD.BRZ ordered. EDMS EDMS 14:31 14:31 Knee Left 3 View+RAD.RAD.BRZ ordered. EDMS EDMS 19:00 17:30 rt kmf
--- NOTE | 2023-11-19 17:31 | ER ---
Nurse's Notes [facility] Name: Renetta Dey Age: 73 yrs Sex: Female : 1950 Arrival Date: 11/19/2023 Time: 14:02 Bed 6 Private MD: Diagnosis: Anasarca;L5 compression fracture Presentation: 11/18 14:18 Chief complaint: EMS states: toned to patient home for fall - pt reports falling and ld1 hitting head, claims + LOC. C/O SOB due to fluid overload and pain to TEREAS Legs, arms and head. Pt takes Eliquis 5 mg BID. 14:19 Coronavirus screen: At this time, the client does not indicate any symptoms associated ld1 with coronavirus-19. Ebola Screen: No symptoms or risks identified at this time. Initial Sepsis Screen: Does the patient meet any 2 criteria? No. Patient's initial sepsis screen is negative. Does the patient have a suspected source of infection? No. Patient's initial sepsis screen is negative. Risk Assessment: Do you want to hurt yourself or someone else? Patient reports no desire to harm self or others. Onset of symptoms was November 19, 2023. 14:19 Method Of Arrival: EMS: [facility] ld1 14:19 Acuity: ELEAZAR 2 ld1 Triage Assessment: 14:22 General: Appears in no apparent distress. comfortable, Behavior is calm, cooperative, ld1 appropriate for age. Pain: Complains of pain in face, right arm, left arm, right leg and left leg Pain does not radiate. Pain currently is 8 out of 10 on a pain scale. Quality of pain is described as throbbing, Pain began suddenly. EENT: No signs and/or symptoms were reported regarding the EENT system. Neuro: Level of Consciousness is awake, alert, obeys commands, Oriented to person, place, time, situation. Cardiovascular: Capillary refill < 3 seconds Patient's skin is warm and dry. Rhythm is sinus rhythm. Respiratory: Airway is patent Respiratory effort is even, unlabored. GI: Abdomen is round non-distended. : No signs and/or symptoms were reported regarding the genitourinary system. Derm: No signs and/or symptoms reported regarding the dermatologic system. Musculoskeletal: No signs and/or symptoms reported regarding the musculoskeletal system. Historical: - Allergies: 14:20 No Known Allergies; ld1 - Home Meds: 14:20 Eliquis 5 mg oral tablet 1 tab 2 times per day [Active]; ld1 - PMHx: 14:20 Back pain; CHF; CVA; Diabetes - IDDM; ESRD; Hypertension; ld1 - Immunization history:: Adult Immunizations up to date. - Infectious Disease History:: Denies. - Social history:: Smoking status: Patient denies any tobacco usage or history of. - Family history:: not pertinent. Screenin:[address] [facility] ED Fall Risk Assessment (Adult) History of falling in the last 3 months, ld1 including since admission Yes- single mechanical fall (1 pt) Confusion or Disorientation No (0 pts) Intoxicated or Sedated No (0 pts) Impaired Gait Yes (1 pt) Mobility Assist Device Used Yes (1 pt) Altered Elimination Yes (1 pt) Score/Fall Risk Level 3 or more points = High Risk Oriented to surroundings, Maintained a safe environment, Educated pt \T\ family on fall prevention, incl call for assistance when getting out of bed, Assessed \T\ reinforced patient's understanding of fall precautions, Provided non-skid footwear, Hourly rounding (assess needs \T\ fall precautionary measures) done, Used ambulatory aids as needed (educated on \T\ assisted with), Used gait belt as appropriate Implemented a Fall Risk Plan of Care, Apply high fall risk patient identification: yellow non skid footwear/ fall signage, Placed fall mat w/ non beveled edge next to bed, Activated bed/chair alarm, Remained w/in arm's length of patient and in sight while toileting, Offered frequent toileting (1:1 observation), Remained with patient while ambulating, Utilized family, sitter, or virtual yard switcher as indicated. Abuse screen: Denies threats or abuse. Denies injuries from another. Nutritional screening: No deficits noted. Tuberculosis screening: No symptoms or risk factors identified. Assessment: 14:24 Reassessment: see triage assessment. ld1 19:42 Reassessment: report faxed to 4th, confirmed by tm6 20:40 Reassessment: Patient appears in no apparent distress at this time. Patient and/or tm6 family updated on plan of care and expected duration. Pain level reassessed. Patient is alert, oriented x 3, equal unlabored respirations, skin warm/dry/pink. Vital Signs: 14:19 BP 162 / 72; Pulse 66; Resp 18; Temp 97.6(TE); Pulse Ox 100% on R/A; Weight 103.87 kg; ld1 Height 5 ft. 3 in. ; Pain 0/10; 16:49 BP 184 / 69; Pulse 59; Resp 18; Pulse Ox 95% on R/A; ld1 19:40 BP 153 / 74; Pulse 66; Resp 18; Temp 98; Pulse Ox 97% on R/A; Pain 3/10; rg5 14:19 Body Mass Index 40.57 (103.87 kg, 160.02 cm) ld1 14:19 Pain Scale: Adult ld1 19:40 Pain Scale: Adult rg5 Vitals: 19:40 Cardiac Rhythm Assessment Regular Sinus rhythm. rg5 [place] Coma Score: 19:40 Eye Response: spontaneous(4). Motor Response: obeys commands(6). Verbal Response: rg5 oriented(5). Total: 15. ED Course: 14:12 Patient arrived in ED. aa5 14:14 Kailash Johnson MD is Attending Physician. rt 14:17 Hutchinson cath inserted, using sterile technique, 16 Fr., by ms, balloon inflated, to zm gravity drainage, Patient tolerated well. 14:18 Riana Pringle, RN is Primary Nurse. ld1 14:18 Warm blanket given. zm 14:20 Triage completed. ld1 14:22 Arm band placed on right wrist. ld1 14:24 No provider procedures requiring assistance completed. ld1 14:24 Patient has correct armband on for positive identification. Placed in gown. Bed in low ld1 position. Call light in reach. Side rails up X2. bus driver/monitor on. Pulse ox on. NIBP on. 14:59 CT Traumagram (Head C Spine CAP wo con) In Process Unspecified. EDMS 15:08 Knee Right 3 View XRAY In Process Unspecified. EDMS 15:08 Knee Left 3 View XRAY In Process Unspecified. EDMS 16:09 Basic Metabolic Panel Sent. zm 16:09 CBC with Diff Sent. zm 16:09 Magnesium Sent. zm 16:09 LFT's Sent. zm 16:09 NT PRO-BNP Sent. zm 16:09 Troponin HS Sent. zm 16:10 Missed attempt(s): 22 gauge in left hand. Bleeding controlled, band aid applied, zm catheter tip intact. 16:10 Initial lab(s) drawn, by me, sent to lab. zm 16:27 Accessed peripheral vein via ultrasound, utilizing dynamic ultrasound technique using ss 20G Nexia IV catheter ,sterile technique, per hospital protocol. Clean \T\ dry. Dressing intact. Good blood return. No blood return. 2' catheter . 16:47 EKG done, by ED staff, reviewed by Kailash Johnson MD. aa5 17:30 José Calabrese is Hospitalizing Provider. rt 20:34 Provided Education on: post er care. rg5 20:36 Patient admitted, IV remains in place. intact, No redness/swelling at site. rg5 Administered Medications: 16:43 Drug: Furosemide IVP 40 mg IVP once; give over 2 minutes Route: IVP; Site: right aa5 antecubital; 16:47 Follow up: Response: No adverse reaction aa5 16:46 Drug: morphine IVP or IV 4 mg IVP once over 4 mins Route: IVP; Infused Over: 4 mins; aa5 Site: right antecubital; 16:46 Drug: Ondansetron IVP 4 mg IVP once; over 2 minutes Route: IVP; Site: right antecubital;aa5 Medication: 14:24 VIS not applicable for this client. ld1 Output: 16:49 Urine: 1300ml (Hutchinson); Total: 1300ml. ld1 Outcome: 17:30 Decision to Hospitalize by Provider. rt 20:35 Admitted to Med/surg accompanied by tech, via stretcher, rg5 20:35 Condition: stable 20:35 Instructed on the need for admit, Demonstrated understanding of instructions, 20:41 Patient left the ED. tm6 Signatures: Dispatcher [employer] EDMS Holly Read RN RN aa5 Jayda Graves RN RN ss Sims, Lauren, RN RN [email or web address] Estephania Mireles Ryan, MD MD rt Justin Sun RN RN tm6 Josr Mccullough RN RN rg5 Corrections: (The following items were deleted from the chart) 14:22 14:20 PSHx: Cholecystectomy; ld1 ld1 14:22 14:20 PSHx: CABG; ld1 ld1 14:22 14:20 PSHx: Phen pop bypass; ld1 ld1 14:20 PSHx: cardiac stents; ld1 ld1 14:20 PSHx: Peripheral stent; ld1 ld1 14:20 PSHx: R carotid SX; ld1 ld1
[2023-11-19 17:44] LABS: Band Neutrophils 3 % (0-1); Differential Total Cells Count 100; Lymphocytes 15 % (15-42); Monocytes 2 % (0-10); Segmented Neutrophils 80 % (40-80)
[2023-11-19 17:46] LABS: Anisocytosis 1+; Blood Morphology Comment NOTED (NOT SEEN); Hypochromasia 1+; Platelet Estimate ADEQ; Polychromasia 1+
--- NOTE | 2023-11-19 18:05 | P.HP ---
Certification for Inpatient Patient admitted to: Inpatient With expected LOS: >2 Midnights Patient will require the following post-hospital care: None Practitioner: I am a practitioner with admitting privileges, knowledge of patient current condition, hospital course, and medical plan of care. Services: Services provided to patient in accordance with Admission requirements found in Title 42 Section 412.3 of the Code of Federal Regulations Patient History Date of Service: 11/19/23 Reason for admission: CHF exacerbation, syncope, T5 compression fracture History of Present Illness: 73-year-old female with history of chronic diastolic congestive heart failure, paroxysmal atrial fibrillation status post ablation, chronic pain, hypertension, hyperlipidemia, hypothyroidism presents emergency department chief complaint of syncope, swelling. She reports that she was sitting in front of her fridge emptying groceries when she collapsed, she denies any prodrome of chest pain, dyspnea, headache. Her heard her fall from across the house and came over by the time he got there about 30 seconds later she was awake and talking. She reports she has not been taking her Lasix for the last 3 weeks or so, she does not like that when she takes it she cannot go anywhere. She usually gets around with a walker. She was evaluated in the emergency room her labs are significant for hemoglobin of 10.7 medic at 37.[address] head/C- spine/chest/abdomen/pelvis was performed given her fall which showed acute versus subacute T5 compression fracture with less than 10% height loss, no bony retropulsion, anasarca including small bilateral pleural effusions and moderate ascites. ED prior wishes to meet patient for syncope, CHF exacerbation, T5 compression fracture. Allergies No Known Allergies Allergy (Verified 06/19/22 13:21) Home Medications: Amlodipine [Norvasc*] 10 mg PO DAILY 04/19/22 Apixaban [Eliquis] 5 mg PO BID 04/19/22 Duloxetine [Cymbalta *] 20 mg PO BEDTIME 04/19/22 Folic Acid 1 mg PO DAILY 04/19/22 Gabapentin [Neurontin] 900 mg PO BEDTIME PRN PRN 04/19/22 Levothyroxine [Synthroid*] 2 tab PO DAILY 04/19/22 Melatonin 10 mg PO BEDTIME PRN 04/19/22 Rosuvastatin Calcium [Crestor] 20 mg PO BEDTIME 04/19/22 Furosemide [Lasix] 40 mg PO DAILY 05/02/22 Insulin 70/30 NPH/Reg Human [Novolin 70/30*] 30 unit SQ DAILY WITH BREAKFAST #10 ml 05/02/22 Aspirin 81 mg PO DAILY 05/13/22 Cyanocobalamin (Vitamin B-12) [Vitamin B12] 5,000 mcg PO DAILY 05/13/22 Mv-Mn/Iron/Folic Acid/Herb 190 [Vitamin D3 Complete Caplet] 1 tab PO DAILY 05/13/22 Benzonatate [Tessalon Perle*] 100 mg PO TID PRN #20 cap 05/16/22 - Past Medical/Surgical History Diabetic: Yes -: Diabetesinsulin-dependent -: Hypertension -: Atrial fibrillationon chronic anticoagulation -: CAD with CABG -: CHFdiastolic -: Kidney failure -: CVAexpressive aphasia/right-sided weakness -: triple bypass 2002 -: carotid artery sx 2002 -: GB surgery 2002 -: Fempop sx 2006 -: Atrial ablation -: Carotid endarterectomy Psychosocial/ Personal History: Patient lives at home with her . - Family History Mother -: Cancer - Social History Alcohol use: No CD- Drugs: No Caffeine use: Yes Place of Residence: Home Review of Systems 10-point ROS is otherwise unremarkable Respiratory: SOB with Excertion Cardiovascular: Edema, Other (Syncope) Physical Examination - Physical Exam General: Alert, In no apparent distress, Oriented x3 HEENT: Atraumatic, PERRLA, Mucous membr. moist/pink Neck: Supple, 2+ carotid pulse no bruit, No LAD Respiratory: Diminished, Crackles/rales Cardiovascular: Regular rate/rhythm, Normal S1 S2, Edema (3+ pitting edema bilateral lower extremities, anasarca of the abdomen) Gastrointestinal: Normal bowel sounds, No tenderness Musculoskeletal: No tenderness Integumentary: No rashes Neurological: Normal speech, Normal strength at 5/5 x4 extr, Normal tone, Normal affect - Studies Laboratory Data (last 24 hrs) 11/19/23 11/19/23 16:04 16:04 WBC 8.20 Hgb 10.7 L Hct 37.4 Plt Count 205 Sodium 139 Potassium 3.5 BUN 7 Creatinine 0.96 Glucose 94 Magnesium 2.1 Total Bilirubin 1.7 H AST 20 ALT 25 Alkaline Phosphatase 129 H Assessment and Plan - Plan Assessment: Syncope Acute on chronic diastolic congestive heart failure with volume overload, anasarca, noncompliance Atrial fibrillation on chronic anticoagulation therapy S/P ablation T5 compression fracture History of CAD with previous CABG History of CVA Hypertension Hyperlipidemia Hypothyroidism Chronic pain Plan: Syncope Acute on chronic diastolic congestive heart failure with volume overload, anasarca, noncompliance Atrial fibrillation on chronic anticoagulation therapy S/P ablation History of CAD with previous CABG She had an ablation for A-fib in May Describes a syncopal event prior to arrival Monitor on telemetry, obtain echocardiogram, trend troponins Cardiology consultation in place Patient grossly overloaded, has not been taking Lasix for the last 3 weeks Hutchinson catheter in place, continue aggressive IV diuresis with Lasix, spironolactone continued Continue other home medications as appropriate T5 compression fracture As needed pain medications, physical therapy evaluation Typically ambulates with a walker Less than 20% height loss, no retropulsion History of CVA Hypertension Hyperlipidemia Hypothyroidism Chronic pain Continue home medications when verified DVT PPX: Continue Eliquis Code status: Full Discharge Plan: Home Plan to discharge in: Greater than 2 days - Advance Directives Does patient have a Living Will: No Does patient have a Durable POA for Healthcare: No - Code Status/Comfort Care Code Status Assessed: Yes (Full code) Critical Care: No Time Spent Managing Pts Care (In Minutes): 70
[2023-11-19] MEDS ORDERED: ACETAMINOPHEN 325 MG TABLET PO PRN (22:44)
[2023-11-19] MEDS: INSULIN REGULAR (HUMAN) 100 UNIT/ML SQ SCH (22:44)
[2023-11-19 23:44] VITALS: BMI 35.4
[2023-11-20] MEDS: ROSUVASTATIN 10 MG TAB PO SCH (00:01)
[2023-11-20] MEDS: FUROSEMIDE 40 MG/4 ML VIAL IV SCH (00:01)
[2023-11-20] MEDS: HYDROCODONE/APAP 7.5/325 MG TAB PO PRN (00:03)
[2023-11-20] MEDS: APIXABAN 5 MG TABLET PO SCH (00:04)
[2023-11-20 07:30] LABS: Absolute Basophils 0.1 K/uL (0-0.5); Absolute Eosinophils 0.3 K/uL (0-0.5); Absolute Monocytes 0.6 K/uL (0.1-1.3); Absolute Neutrophil 5.8 K/uL (1.8-8.0); Basophils % 1.7 % (0-1.3); Eosinophils % 3.4 % (0-4.4); Hematocrit 33.2 % (36.0-45.0); Lymphocytes % 13.1 % (15.3-44.8); MCH 21.8 pg (27.0-35.0); MCHC 30.2 g/dL (32.0-36.0); MCV 72.4 fL (80-100); MPV 8.7 fL (7.6-11.3); Monocytes % 7.5 % (3.3-12.3); Neutrophils % 74.3 % (41.7-73.7); Nucleated Red Blood Cells % 0.3 % (0-0); Platelets 179 thou/uL (152-406); RBC Red Blood Cell Count 4.59 M/uL (3.86-4.86); Red Cell Distribution Width 20.1 % (12.1-15.2)
[2023-11-20 07:31] LABS: Albumin 2.8 g/dL (3.4-5.0); Albumin/Globulin Ratio 0.8 (1.1-1.8); Anion Gap 9.2 mEq/L (5.0-15.0); Bilirubin Total 1.7 mg/dL (0.2-1.0); Globulin 3.3 g/dL (2.3-3.5); Magnesium 1.7 mg/dL (1.6-2.4); Potassium 4.2 mEq/L (3.5-5.1); Protein, Total 6.1 g/dL (6.4-8.2); Thyroid Stimulating Hormone 0.857 uIU/mL (0.358-3.740); Troponin High Sensitivity 56.1 pg/mL (<58.9)
[2023-11-20] MEDS: ASPIRIN EC 81 MG TAB PO SCH (08:03)
[2023-11-20] MEDS: SPIRONOLACTONE 25 MG TABLET PO SCH (08:03)
[2023-11-20] MEDS: INSULIN GLARGINE 100 UNIT/ML SQ SCH (08:07)
[2023-11-20 08:22] LABS: Anisocytosis 2+; Blood Morphology Comment NOTED (NOT SEEN); Hypochromasia 2+; Platelet Estimate ADEQ; Poikilocytosis 1+; White Blood Cell Scan OK (OK)
[2023-11-20] MEDS ORDERED: BENZONATATE 100 MG CAP PO PRN (09:53)
[2023-11-20] MEDS: HYDRALAZINE HCL 20 MG/ML VIAL IV PRN (10:18)
--- NOTE | 2023-11-20 10:19 | P.PN ---
Date of Service: 11/20/23 Subjective: No acute events overnight S/O headache Swelling to TERESA LE improved ROS: 10 point ROS as noted above, otherwise negative Physical exam GEN: Alert, oriented, NAD HEENT: Normal conjunctiva, sclera anicteric CV: Regular rate and rhythm, 2+ pitting edema LE, abd anasarca Pulm: Nonlabored respirations on room air ABD: Soft, nontender, nondistended MSK: No joint tenderness Integumentary: No rashes Neuro: Normal speech, normal affect Vitals reviewed Assessment: Syncope Acute on chronic diastolic congestive heart failure with volume overload, anasarca, noncompliance Atrial fibrillation on chronic anticoagulation therapy S/P ablation T5 compression fracture History of CAD with previous CABG History of CVA Hypertension Hyperlipidemia Hypothyroidism Chronic pain Plan: Syncope Acute on chronic diastolic congestive heart failure with volume overload, anasarca, noncompliance Atrial fibrillation on chronic anticoagulation therapy S/P ablation History of CAD with previous CABG She had an ablation for A-fib in May Describes a syncopal event prior to arrival Monitor on telemetry, obtain echocardiogram, trops trended negative/flat Cardiology consultation in place Patient grossly overloaded, has not been taking Lasix for the last 3 weeks Hutchinson catheter in place, continue aggressive IV diuresis with Lasix, spironolactone continued Continue other home medications as appropriate T5 compression fracture As needed pain medications, physical therapy evaluation Typically ambulates with a walker Less than 20% height loss, no retropulsion History of CVA Hypertension Hyperlipidemia Hypothyroidism Chronic pain Continue home medications when verified DVT PPX: Continue Eliquis Code status: Full Discharge Plan: Home Plan to discharge in: Greater than 2 days Time Spent Managing Pts Care (In Minutes): 35
[2023-11-20] MEDS: AMLODIPINE 5 MG TAB PO ONE (11:54)
--- NOTE | 2023-11-20 12:41 | EKG ---
Test Date: 2023-11-19 Test Time: 16:46:34 Home Based Assistant: JONAS MEASUREMENT RESULTS: Intervals: Rate: 61 UT: QRSD: 108 QT: 494 QTc: 497 [place]: P: UT: QRS: 103 T: 120 INTERPRETIVE STATEMENTS: Normal sinus rhythm ST abnormality, possible digitalis effect Prolonged QT Abnormal ECG Compared to ECG 01/13/2023 10:09:31 Possible ischemia no longer present ST (T wave) deviation still present Electronically Signed On 11-20-23 12:40:56 CDT by Julio Rodriguez
--- NOTE | 2023-11-20 15:02 | RAD REPORT ---
EXAM DESCRIPTION: CT - Chest For Pe Angio - 11/20/2023 2:14 pm CLINICAL HISTORY: Chest pain pulmonary hypertension COMPARISON: 2022 TECHNIQUE: Dynamically enhanced axial 3 mm thick images of the chest were obtained during administra tion of 100 mL Isovue 370 IV contrast. Coronal and oblique reconstruction images were generated and r eviewed. Exam utilizes a protocol for optimal evaluation of pulmonary arterial tree. Maximum intensity projections 3D imaging was utilized All CT scans are performed using dose optimization technique as appropriate and may include automated exposure control or mA/KV adjustment according to patient size. FINDINGS: A pulmonary embolus is not seen. A thoracic aortic aneurysm is not noted. Small pleural effusions A pericardial effusion is not seen. Cardiomegaly. Dilated IVC and hepatic veins Mild pulmonary edema Small amount of ascites IMPRESSION: Negative for a pulmonary embolism. Mild pulmonary edema
--- NOTE | 2023-11-20 19:03 | CON ---
Date of Consultation: 11/20/2023 Reason For Consultation: Syncope. History Of Present Illness: A 73-year-old female with history of proximal atrial fibrillation, diast olic heart failure, hypertension, dyslipidemia, hypothyroidism, presented after passing out. She has swelling of swelling of lower extremities with mild shortness of breath. Denies having any chest pa in. She has not been taking the Lasix for the past 3 weeks. Denies having any symptoms now. She is resting comfortably and as far as her syncope episode, she was sitting in front of her fridge [employer] groceries and then she passed out. Her was able to take her off the floor 30 seconds late r. Past Medical History: Hypertension, diabetes, coronary artery disease, CHF, chronic kidney disease, CVA. Past Surgical History: Atrial fibrillation ablation, carotid endarterectomy, carotid artery stents. Medications: Refer reconciliation sheet for detailed list. Allergies: NO KNOWN DRUG ALLERGIES. Family History: No premature coronary artery disease or cancer. Social History: She does not smoke or drink. Does not use any drugs. Review of Systems: All systems reviewed are negative except as mentioned in the HPI. Physical Examination: Vital Signs: Reviewed. Head and Neck: Pupils are equal, reactive to light. Intact eye movements. No JVD. No cervical lym phadenopathy. Neck is supple. Thyroid is not enlarged. Lungs: Clear to auscultation bilaterally. No rhonchi, wheezing, or crackles. No accessory muscle u se. Heart: Regular. No extra sounds. Abdomen: Soft, nontender. Bowel sounds positive. No organomegaly. No masses or hernia. No rigidi ty or rebound. Extremities: 2 to 3+ pitting edema. No clubbing, cyanosis. Intact pulses. Skin: No rash. Neurologic: Alert, awake, oriented x3. No acute focal deficits appreciated. Investigations: Hemoglobin 10. BUN 9, creatinine 0.76, and her troponin is 58 and 56. Assessment/recommendations: 1.Syncope. On echo, she has severe pulmonary hypertension. Right ventricular systolic pressure is more than 90 mmHg with dilated right ventricle and moderate dysfunction with syncope. This raises a concern of pulmonary embolus. Recommend a stat CT angiogram of the lungs PE protocol and also I demetrius mmend to do a right heart catheterization on her to obtain the pulmonary vascular resistance to ident constanza the kind of pulmonary hypertension she has and plan the treatment accordingly, but as part of the workup, the CT angiogram of the lungs PE protocol, and right heart catheterization. Right heart cat heterization will be done tomorrow. Discussed the case with Dr. Woods and we will perform the CT toangel ay. 2.Congestive heart failure, lower extremity edema. IVC is dilated on echo. Definitely, she could b enefit from diuresis. She is likely has mix pulmonary hypertension artery and venous. 3.Dyslipidemia, on statin, to be continued. 4.Atrial fibrillation. It is controlled on Eliquis. Continue current management. 5.Hypertension. Blood pressure is controlled. SR/MODL Voice ID: [id number] Report ID: [id number]
[2023-11-20] MEDS ORDERED: HOME MED 1 EA UNK (Rosuvastatin Calcium [Crestor] 20 MG Tablet) PO SCH (21:00)
[2023-11-20] MEDS: ENOXAPARIN 100 MG/ML SYR SQ SCH (21:05)
[2023-11-20] MEDS: DULOXETINE 20 MG CAP PO SCH (21:05)
[2023-11-21] MEDS: LEVOTHYROXINE SOD 0.125 MG TAB PO SCH (06:34)
[2023-11-21 06:44] LABS: Albumin 3.1 g/dL (3.4-5.0); Albumin/Globulin Ratio 0.9 (1.1-1.8); Anion Gap 9.2 mEq/L (5.0-15.0); Bilirubin Total 2.1 mg/dL (0.2-1.0); Globulin 3.6 g/dL (2.3-3.5); Magnesium 1.6 mg/dL (1.6-2.4); Potassium 3.2 mEq/L (3.5-5.1); Protein, Total 6.7 g/dL (6.4-8.2)
[2023-11-21 07:06] LABS: Absolute Basophils 0.1 K/uL (0-0.5); Absolute Eosinophils 0.1 K/uL (0-0.5); Absolute Lymphocytes (CBC) 0.8 K/uL (0.7-4.9); Absolute Monocytes 0.7 K/uL (0.1-1.3); Absolute Neutrophil 5.8 K/uL (1.8-8.0); Basophils % 1.9 % (0-1.3); Eosinophils % 1.9 % (0-4.4); Hemoglobin 10.2 g/dL (12.0-15.0); Lymphocytes % 11.1 % (15.3-44.8); MCH 21.5 pg (27.0-35.0); MCHC 29.9 g/dL (32.0-36.0); MCV 71.6 fL (80-100); MPV 8.9 fL (7.6-11.3); Monocytes % 8.7 % (3.3-12.3); Neutrophils % 76.4 % (41.7-73.7); Nucleated Red Blood Cells % 0.1 % (0-0); Platelets 187 thou/uL (152-406); RBC Red Blood Cell Count 4.75 M/uL (3.86-4.86); Red Cell Distribution Width 20.5 % (12.1-15.2)
[2023-11-21] MEDS: INSULIN GLARGINE 100 UNIT/ML SQ SCH (09:00)
[2023-11-21] MEDS: AMLODIPINE 10 MG TAB PO SCH (09:17)
[2023-11-21] MEDS: POTASSIUM 25 MEQ EFFERV TAB PO ONE (09:19)
--- NOTE | 2023-11-21 10:02 | ECHO ---
HEIGHT: 5 ft 3 in WEIGHT: 200 lb 0 oz DATE OF STUDY: 11/20/[address]: Kvng Mccartney NP 2-DIMENSIONAL: YES M.MODE: YES DOPPLER: YES COLOR FLOW: YES TDS: PORTABLE: YES DEFINITY: BUBBLE STUDY: DIAGNOSIS: SYNCOPE CARDIAC HISTORY: CATHERIZATION: YES SURGERY: CORONARY ARTERY BYPASS GRAFT PROSTHETIC VALVE: PACEMAKER: MEASUREMENTS (cm) DIASTOLIC (NORMALS) SYSTOLIC (NORMALS) IVSd 1.2 (0.6-1.2) LA Diam 3.8 (1.9-4.0) LVEF GREATER THAN 60% LVIDd 3.4 (3.5-5.7) LVIDs 2.0 (2.0-3.5) %FS 40% LVPWd 1.2 (0.6-1.2) Ao Diam 2.4 (2.0-3.7) 2 DIMENSIONAL ASSESSMENT: RIGHT ATRIUM: ENLARGED LEFT ATRIUM: NORMAL RIGHT VENTRICLE: MILDLY DILATED LEFT VENTRICLE: LEFT VENTRICULAR HYPERTROPHY TRICUSPID VALVE: MODERATE TRICUSPID REGURGITATION MITRAL VALVE: MILD MITRAL REGURGITATION PULMONIC VALVE: NORMAL AORTIC VALVE: HEAVILY CALCIFIED, NO AORTIC STENOSIS PERICARDIAL EFFUSION: NONE AORTIC ROOT: NORMAL LEFT VENTRICULAR WALL MOTION: NORMAL DOPPLER/COLOR FLOW: SEE BELOW COMMENTS: 1. NORMAL LEFT VENTRICULAR EJECTION FRACTION GREATER THAN 60% WITH NORMAL WALL MOTION 2. MODERATE CONCENTRIC LEFT VENTRICULAR HYPERTROPHY 3. GRADE I DIASTOLIC DYSFUNCTION 4. SEVERE PULMONARY HYPERTENSION WITH RIGHT VENTRICULAR SYSTOLIC PRESSURE GREATER THAN 70 mmHg 5. DILATED RIGHT VENTRICLE (MODERATE) WITH MILD DYSFUNCTION. RECOMMEND TO RULE OUT PULMONARY EMBOLISM. TECHNOLOGIST: NERISSA VERDE
--- NOTE | 2023-11-21 13:23 | P.PN ---
Date of Service: 11/21/23 Subjective: No acute events overnight LE edema improving ROS: 10 point ROS as noted above, otherwise negative Physical exam GEN: Alert, oriented, NAD HEENT: Normal conjunctiva, sclera anicteric CV: Regular rate and rhythm, 2+ pitting edema LE, abd anasarca Pulm: Nonlabored respirations on room air ABD: Soft, nontender, nondistended MSK: No joint tenderness Integumentary: No rashes Neuro: Normal speech, normal affect Vitals reviewed Assessment: Syncope Acute on chronic diastolic congestive heart failure with volume overload, anasarca, noncompliance Atrial fibrillation on chronic anticoagulation therapy S/P ablation T5 compression fracture History of CAD with previous CABG History of CVA Hypertension Hyperlipidemia Hypothyroidism Chronic pain Plan: Syncope Acute on chronic diastolic congestive heart failure with volume overload, anasarca, noncompliance Atrial fibrillation on chronic anticoagulation therapy S/P ablation History of CAD with previous CABG She had an ablation for A-fib in May Describes a syncopal event prior to arrival Monitor on telemetry, obtain echocardiogram, trops trended negative/flat Cardiology consultation in place Patient grossly overloaded, has not been taking Lasix for the last 3 weeks [address] catheter in place, continue aggressive IV diuresis with Lasix, spironolactone continued Echo shows NORMAL LEFT VENTRICULAR EJECTION FRACTION MODERATE CONCENTRIC LEFT VENTRICULAR HYPERTROPHY GRADE I DIASTOLIC DYSFUNCTION SEVERE PULMONARY HYPERTENSION WITH RIGHT VENTRICULAR SYSTOLIC PRESSURE GREATER THAN 70 mmHg DILATED RIGHT VENTRICLE (MODERATE) WITH MILD DYSFUNCTION. RECOMMEND TO RULE OUT PULMONARY EMBOLISM. CT Chest for PE done- No PE, mild pulmonary edema cardiology plans for right heart cath during hospitalization T5 compression As needed pain medications, physical therapy evaluation Typically ambulates with a walker Less than 20% height loss, no retropulsion History of CVA Hypertension Hyperlipidemia Hypothyroidism Chronic pain Continue home medications when verified DVT PPX: Continue Eliquis Code status: Full Discharge Plan: Home Plan to discharge in: Greater than 2 days Time Spent Managing Pts Care (In Minutes): 35
[2023-11-21] MEDS: NA CHLORIDE 0.9% 500 ML ONE (13:40)
[2023-11-21] MEDS ORDERED: LIDOCAINE 1% 20 ML MDV ONE (14:39)
[2023-11-21] MEDS ORDERED: FENTANYL CITR 100 MCG/2 ML ONE (14:39)
[2023-11-21] MEDS ORDERED: HEPARIN 5000 UNIT/ML 1 ML VIAL ONE (14:39)
[2023-11-21] MEDS ORDERED: MIDAZOLAM HCL 2 MG/2 ML INJ ONE (14:39)
[2023-11-21] MEDS ORDERED: VERAPAMIL HCL 10 MG/4 ML VIAL IV ONE (14:39)
[2023-11-21] MEDS ORDERED: HEPA 1000U/500MLS 2,000 UNIT/1,000 ML BAG IV ONE (14:39)
[2023-11-21] MEDS ORDERED: FLUMAZENIL 0.1 MG/ML (5 mL VIAL) IV ONE (14:40)
[2023-11-21] MEDS ORDERED: NALOXONE 0.4 MG/ML VIAL ONE (14:40)
[2023-11-21] MEDS ORDERED: HEPARIN 10,000 UNIT/10 ML VIAL IV ONE (14:40)
[2023-11-21] MEDS ORDERED: ATROPINE SULF 1 MG/10 ML SYR IV ONE (14:52)
[2023-11-21] MEDS ORDERED: FUROSEMIDE 20 MG/ 2ML VIAL ONE (15:07)
[2023-11-21] MEDS ORDERED: HYDRALAZINE HCL 20 MG/ML VIAL ONE (15:08)
--- NOTE | 2023-11-21 18:45 | OP ---
Date of Procedure: 11/21/2023 Surgeon: LASHAY PADILLA Procedure Performed: Right heart catheterization. Indication: Severe pulmonary hypertension. Access: Right IJ 7-Palauan closed with manual pressure. Complications: None. Bleeding: Less than 50 mL. Anesthesia: Total sedation time was 20 minutes. Description Of Procedure: After risks, benefits, and alternatives were explained, the patient agreed to procedure and signed informed consent. The patient was brought into cardiac catheterization [facility], then after appropriate time-out, she was prepped and draped in the usual sterile fashion. , I accessed right IJ using micropuncture kit and ultrasound guidance, placed a 7-Palauan [place] s lamin and took 7-Palauan balloon-tipped Randolph catheter into the right atrium, right ventricle, pulmonar y artery, and wedge, obtained waveform and pressure and then performed cardiac output through using t he thermodilutional method and then removed the catheter and the sheath and manual pressure was used for closure with good hemostasis. Findings: RA pressure mean of 20. RV pressure is 100/5, mean of 22. PA pressure is 102/31, mean of 54. Pulmonary wedge pressure was 27 mmHg. Average cardiac output was 4.4 L/minute and the pulmonar y vascular resistance is 6 Wood units. Conclusion: Severe mixed pulmonary hypertension, arterial and venous, definitely with elevated pulmo nary vascular resistance. She needs pulmonary artery hypertension treatment and also she needs aggre ssive diuresis. Recommendation: Consult Dr. Gonzalez for pulmonary arterial hypertension component management and ag gressive diuresis during the hospital stay. SR/MODL Voice ID: [id number] Report ID: [id number]
--- NOTE | 2023-11-21 19:15 | PN ---
Date of Progress Note: 11/21/2023 Subjective: Seen by bedside. She is having shortness of breath on exertion, orthopnea, lower extrem ity edema with mild improvement. CTA PE protocol was negative for PE. Denies having any chest pain. Review of Systems: Positive shortness of breath, lower extremity edema. No nausea, vomiting, diarrhea. No abdominal pa in. No dysuria, polyuria, or urinary urgency. All other systems reviewed and they are negative. Physical Examination: Vital Signs: Reviewed. Head and Neck: Pupils are equal, reactive to light. Intact eye movements. No JVD. No cervical lym phadenopathy. Neck is supple. Thyroid is not enlarged. Lungs: Clear to auscultation bilaterally. No rhonchi, wheezing, or crackles. No accessory muscle u se. Heart: Regular rate and rhythm. No extra sounds. Abdomen: Soft, nontender. Bowel sounds positive. No organomegaly. No masses or hernia. No rigidi ty or rebound. Extremities: 2+ edema bilaterally. No clubbing, cyanosis. Intact pulses. Skin: No rash. No nodule. Neurologic: Alert, awake, oriented x3. No acute focal deficits appreciated. Investigation: Labs reviewed. Assessment/recommendation: 1.Severe pulmonary hypertension. I expect arterial component of it. She is scheduled for right hea rt catheterization today and I will get the pulmonary vascular resistance. CTA of the lungs, PE work up was negative. 2.Syncope could be due to the pulmonary hypertension. There is no PE on the echo. Monitor on telem etry and plan accordingly. 3.Congestive heart failure exacerbation. IVC is very dilated. Recommend Lasix 40 mg IV q.12 hours and monitor BUN, creatinine, and electrolytes closely. 4.Atrial fibrillation, that is controlled on Eliquis. Continue current management. 5.Hypertension. Blood pressure is controlled. Continue current therapy. SR/MODL Voice ID: [id number] Report ID: [id number]
[2023-11-22 07:17] LABS: Albumin 3.2 g/dL (3.4-5.0); Albumin/Globulin Ratio 0.8 (1.1-1.8); Globulin 3.8 g/dL (2.3-3.5); Magnesium 1.5 mg/dL (1.6-2.4)
[2023-11-22 07:40] LABS: Absolute Basophils 0.1 K/uL (0-0.5); Absolute Eosinophils 0.1 K/uL (0-0.5); Absolute Lymphocytes (CBC) 0.7 K/uL (0.7-4.9); Absolute Monocytes 0.8 K/uL (0.1-1.3); Basophils % 1.1 % (0-1.3); Eosinophils % 0.6 % (0-4.4); Hematocrit 33.2 % (36.0-45.0); Hemoglobin 10.1 g/dL (12.0-15.0); Lymphocytes % 8.4 % (15.3-44.8); MCH 21.7 pg (27.0-35.0); MCHC 30.4 g/dL (32.0-36.0); MCV 71.3 fL (80-100); MPV 8.8 fL (7.6-11.3); Monocytes % 9.2 % (3.3-12.3); Neutrophils % 80.7 % (41.7-73.7); Nucleated Red Blood Cells % 0.2 % (0-0); Platelets 212 thou/uL (152-406); RBC Red Blood Cell Count 4.65 M/uL (3.86-4.86); Red Cell Distribution Width 20.4 % (12.1-15.2)
[2023-11-22] MEDS: INSULIN GLARGINE 100 UNIT/ML SQ SCH (08:38)
[2023-11-22] MEDS: Magnesium Sulfate 2gm IVPB 2 G/50 ML BAG IV SCH (08:39)
[2023-11-22] MEDS: POTASSIUM CL SA 10 MEQ TAB PO SCH (08:39)
[2023-11-22] MEDS: APIXABAN 5 MG TABLET PO SCH (08:41)
--- NOTE | 2023-11-22 13:07 | P.PN ---
Date of Service: 11/22/23 Subjective: No acute events overnight LE edema improving ROS: 10 point ROS as noted above, otherwise negative Physical exam GEN: Alert, oriented, NAD HEENT: Normal conjunctiva, sclera anicteric CV: Regular rate and rhythm, 2+ pitting edema LE, abd anasarca Pulm: Nonlabored respirations on room air ABD: Soft, nontender, nondistended MSK: No joint tenderness Integumentary: No rashes Neuro: Normal speech, normal affect Vitals reviewed Assessment: Syncope Acute on chronic diastolic congestive heart failure with volume overload, anasarca, noncompliance Atrial fibrillation on chronic anticoagulation therapy S/P ablation T5 compression fracture History of CAD with previous CABG History of CVA Hypertension Hyperlipidemia Hypothyroidism Chronic pain Plan: Syncope Acute on chronic diastolic congestive heart failure with volume overload, anasarca, noncompliance Atrial fibrillation on chronic anticoagulation therapy S/P ablation History of CAD with previous CABG She had an ablation for A-fib in May Describes a syncopal event prior to arrival Monitor on telemetry, obtain echocardiogram, trops trended negative/flat Cardiology consultation in place Patient grossly overloaded, has not been taking Lasix for the last 3 weeks [address] catheter in place, continue aggressive IV diuresis with Lasix, spironolactone continued Echo shows NORMAL LEFT VENTRICULAR EJECTION FRACTION MODERATE CONCENTRIC LEFT VENTRICULAR HYPERTROPHY GRADE I DIASTOLIC DYSFUNCTION SEVERE PULMONARY HYPERTENSION WITH RIGHT VENTRICULAR SYSTOLIC PRESSURE GREATER THAN 70 mmHg DILATED RIGHT VENTRICLE (MODERATE) WITH MILD DYSFUNCTION. RECOMMEND TO RULE OUT PULMONARY EMBOLISM. CT Chest for PE done- No PE, mild pulmonary edema Right heart cath shows severe mixed pulmonary hypertension Pulmonology consult in place, will continue with IV diuresis T5 compression As needed pain medications, physical therapy evaluation Typically ambulates with a walker Less than 20% height loss, no retropulsion Limited mobility with PT, await todays PT recs History of CVA Hypertension Hyperlipidemia Hypothyroidism Chronic pain Continue home medications when verified DVT PPX: Continue Eliquis Code status: Full Discharge Plan: Home Plan to discharge in: Greater than 2 days Time Spent Managing Pts Care (In Minutes): 35
[2023-11-22 15:55] LABS: Magnesium 1.9 mg/dL (1.6-2.4); Potassium 3.3 mEq/L (3.5-5.1)
[2023-11-22] MEDS: FUROSEMIDE 40 MG/4 ML VIAL IV SCH (15:55)
--- NOTE | 2023-11-22 17:54 | PN ---
Date of Progress Note: 11/22/2023 Subjective: Seen by bedside. Doing clinically well. No significant shortness of breath. Review of Systems: No chest pain. Has orthopnea, lower extremity edema. No nausea, vomiting, or diarrhea. No abdomina l pain. No dysuria, polyuria, or urinary urgency. All other systems were reviewed, they were negati ve. Objective: Vital Signs: Reviewed. Head and Neck: Pupils are equal, reactive to light. Intact eye movements. Positive JVD. No cervic al lymphadenopathy. Neck is supple. Thyroid is not enlarged. Lungs: Clear to auscultation bilaterally. No rhonchi, wheezing, or crackles. No accessory muscle u se. Heart: Regular rate and rhythm. No extra sounds. Abdomen: Soft, nontender. Bowel sounds positive. No organomegaly. No masses or hernia. No rigidi ty or rebound. Extremities: No clubbing or cyanosis. Intact pulses. Skin: No rash. No nodule. Neurologic: Alert, awake, oriented x3. No acute focal deficits appreciated. Investigations: BUN 7, creatinine 0.77, potassium is 3, hemoglobin is 10. Assessment And Recommendations: 1.Severe pulmonary hypertension, it is mixed, arterial and venous. The PVR is 6 Wood unit, but the wedge was 27 mmHg. Continue aggressive diuresis. Monitor BUN, creatinine, electrolytes. 2.Hypokalemia. Replace potassium aggressively while on Lasix. 3.Atrial fibrillation, controlled on Eliquis. Continue current management. 4.Hypertension. Blood pressure is still high. It should improve with further diuresis. After diur esis, when she gets to her dry body weight, then we will plan for a repeat echo and if the blood pressure continues to be high, then we will try sildenafil. SR/MODL Voice ID: [id number] Report ID: [id number]
[2023-11-22] MEDS: POTASSIUM CL SA 10 MEQ TAB PO ONE (20:16)
--- NOTE | 2023-11-22 20:25 | P.CNS ---
Date of Consult: 11/22/23 Reason for Consult: Severe pulmonary hypertension Chief Complaint: CHF exacerbation, syncope, T5 compression fracture History of Present Illness: Patient is 73 years of age multiple medical problems including diastolic heart failure hypertension currently she had a fall and was admitted to the hospital denies any chest pain or evidence of stroke was not taking her Lasix usually walks around with a walker patient was mildly anemic also had a subacute T5 com pression fracture patient is a former smoker has dyspnea on exertion does not take any bronchodilators or oxygen at home was found to have severe pulmonary hypertension Allergies No Known Allergies Allergy (Verified 06/19/22 13:21) Home Medications: Amlodipine [Norvasc*] 10 mg PO DAILY 04/19/22 Apixaban [Eliquis] 5 mg PO BID 04/19/22 Duloxetine [Cymbalta *] 20 mg PO BEDTIME 04/19/22 Gabapentin [Neurontin] 900 mg PO BEDTIME PRN PRN 04/19/22 Levothyroxine [Synthroid*] 2 tab PO DAILY 04/19/22 Melatonin 10 mg PO BEDTIME PRN 04/19/22 Rosuvastatin Calcium [Crestor] 20 mg PO BEDTIME 04/19/22 Furosemide [Lasix] 40 mg PO DAILY 05/02/22 Insulin 70/30 NPH/Reg Human [Novolin 70/30*] 30 unit SQ DAILY WITH BREAKFAST #10 ml 05/02/22 Aspirin 81 mg PO DAILY 05/13/22 Cyanocobalamin (Vitamin B-12) [Vitamin B12] 5,000 mcg PO DAILY 05/13/22 Mv-Mn/Iron/Folic Acid/Herb 190 [Vitamin D3 Complete Caplet] 1 tab PO DAILY 05/13/22 Benzonatate [Tessalon Perle*] 100 mg PO TID PRN #20 cap 05/16/22 - Past Medical/Surgical History Diabetic: Yes -: Diabetesinsulin-dependent -: Hypertension -: Atrial fibrillationon chronic anticoagulation -: CAD with CABG -: CHFdiastolic -: Kidney failure -: CVAexpressive aphasia/right-sided weakness -: Sleep apnea patient is on CPAP -: triple bypass 2002 -: carotid artery sx 2002 -: GB surgery 2002 -: Fempop sx 2006 -: Atrial ablation -: Carotid endarterectomy Psychosocial/ Personal History: Patient lives at home with her . - Family History Mother Medical History: Cancer - Social History Smoking Status: Unknown if ever smoked Alcohol use: No CD- Drugs: No Caffeine use: Yes Place of Residence: Home Review of Systems 10-point ROS is otherwise unremarkable General: Weakness Respiratory: Shortness of Breath Cardiovascular: Edema Physical Examination Temp Pulse Resp BP Pulse Ox 98.4 F 80 17 141/41 H 95 11/22/23 16:00 11/22/23 16:00 11/22/23 16:54 11/22/23 16:00 11/22/23 16:54 General: Alert, Oriented x3 HEENT: Atraumatic Neck: Supple Respiratory: Clear to auscultation bilaterally, Diminished Cardiovascular: No edema, Regular rate/rhythm Gastrointestinal: Normal bowel sounds, Soft and benign Musculoskeletal: Swelling Integumentary: No rashes, No breakdown - Problems (1) Severe pulmonary hypertension Current Visit: Yes Status: Acute Plan: Patient is diagnosed to have severe pulmonary hypertension by right heart cath pulmonary artery pressure of 54 pulmonary artery pressure significantly elevated in addition to elevated pulmonary capillary wedge pressure pertinent labs include microcytic anemia hypomagnesemia hypokalemia no evidence of PE patient has a history of sleep apnea is on a CPAP machine oxygenation so far satisfactory I suspect her pulmonary hypertension may be a combination of diastolic heart failure presumed underlying COPD agree with diuresis right now continue with spironolactone she will need outpatient pulmonary function testing including also a trial of inhaled bronchodilators and possibly use of sildenafil and other agents I have increased the spironolactone to 50 mg daily will follow-up per her as an outpatient Right heart cath RA pressure mean of 20. RV pressure is 100/5, mean of 22. PA pressure is 102/31, mean of 54. Pulmonary wedge pressure was 27 mmHg. Average cardiac output was 4.4 L/minute and the pulmonary vascular resistance is 6 Wood units. Conclusion: Severe mixed pulmonary hypertension, arterial and venous, definitely with elevated pulmonary vascular resistance. She needs pulmonary artery hypertension treatment and also she needs patient will need outpatient pulmonary function test 2D echocardiogram NORMAL LEFT VENTRICULAR EJECTION FRACTION GREATER THAN 60% WITH NORMAL WALL MOTION 2. MODERATE CONCENTRIC LEFT VENTRICULAR HYPERTROPHY 3. GRADE I DIASTOLIC DYSFUNCTION 4. SEVERE PULMONARY HYPERTENSION WITH RIGHT VENTRICULAR SYSTOLIC PRESSURE GREATER THAN 70 mmHg 5. DILATED RIGHT VENTRICLE (MODERATE) WITH MILD DYSFUNCTION
[2023-11-22] MEDS: ARFORMOTEROL TARTRATE 15 MCG/2 ML VIAL.NEB NEB SCH (20:36)
[2023-11-23 06:34] LABS: Absolute Basophils 0.1 K/uL (0-0.5); Absolute Eosinophils 0.1 K/uL (0-0.5); Absolute Lymphocytes (CBC) 0.8 K/uL (0.7-4.9); Absolute Monocytes 0.9 K/uL (0.1-1.3); Absolute Neutrophil 8.3 K/uL (1.8-8.0); Basophils % 1.4 % (0-1.3); Hematocrit 33.3 % (36.0-45.0); Hemoglobin 10.1 g/dL (12.0-15.0); Lymphocytes % 7.6 % (15.3-44.8); MCH 21.9 pg (27.0-35.0); MCHC 30.4 g/dL (32.0-36.0); MCV 72.1 fL (80-100); MPV 8.8 fL (7.6-11.3); Monocytes % 8.7 % (3.3-12.3); Neutrophils % 81.3 % (41.7-73.7); Nucleated Red Blood Cells % 0.1 % (0-0); Platelets 192 thou/uL (152-406); RBC Red Blood Cell Count 4.61 M/uL (3.86-4.86); Red Cell Distribution Width 20.4 % (12.1-15.2)
[2023-11-23 06:55] LABS: Albumin 3.2 g/dL (3.4-5.0); Albumin/Globulin Ratio 0.9 (1.1-1.8); Anion Gap 11.6 mEq/L (5.0-15.0); Bilirubin Total 3.2 mg/dL (0.2-1.0); Globulin 3.7 g/dL (2.3-3.5); Magnesium 1.6 mg/dL (1.6-2.4); Potassium 3.6 mEq/L (3.5-5.1); Protein, Total 6.9 g/dL (6.4-8.2)
[2023-11-23] MEDS: POTASSIUM CL SA 10 MEQ TAB PO ONE ×2 (07:29→09:00)
[2023-11-23] MEDS: MAGNESIUM SULFATE 1 gm IVPB 1 GM/100 ML BAG IV ONE ×2 (07:29→09:00)
[2023-11-23] MEDS: SPIRONOLACTONE 25 MG TABLET PO SCH (08:59)
--- NOTE | 2023-11-23 19:43 | P.PN ---
Date of Service: 11/23/23 Subjective: No acute events overnight LE edema improving Worked with PT yesterday ROS: 10 point ROS as noted above, otherwise negative Physical exam GEN: Alert, oriented, NAD HEENT: Normal conjunctiva, sclera anicteric CV: Regular rate and rhythm, 2+ pitting edema LE, abd anasarca Pulm: Nonlabored respirations on room air ABD: Soft, nontender, nondistended MSK: No joint tenderness Integumentary: No rashes Neuro: Normal speech, normal affect Vitals reviewed Assessment: Syncope Acute on chronic diastolic congestive heart failure with volume overload, anasarca, noncompliance Atrial fibrillation on chronic anticoagulation therapy S/P ablation T5 compression fracture History of CAD with previous CABG Severe pulmonary hypertension History of CVA Hypertension Hyperlipidemia Hypothyroidism Chronic pain Plan: Syncope Acute on chronic diastolic congestive heart failure with volume overload, anasarca, noncompliance Atrial fibrillation on chronic anticoagulation therapy S/P ablation History of CAD with previous CABG Severe pulmonary hypertension She had an ablation for A-fib in May Describes a syncopal event prior to arrival Monitor on telemetry, obtain echocardiogram, trops trended negative/flat Cardiology consultation in place Patient grossly overloaded, has not been taking Lasix for the last 3 weeks Hutch[address] catheter in place, continue aggressive IV diuresis with Lasix, spironolactone continued Echo shows NORMAL LEFT VENTRICULAR EJECTION FRACTION MODERATE CONCENTRIC LEFT VENTRICULAR HYPERTROPHY GRADE I DIASTOLIC DYSFUNCTION SEVERE PULMONARY HYPERTENSION WITH RIGHT VENTRICULAR SYSTOLIC PRESSURE GREATER THAN 70 mmHg DILATED RIGHT VENTRICLE (MODERATE) WITH MILD DYSFUNCTION. RECOMMEND TO RULE OUT PULMONARY EMBOLISM. CT Chest for PE done- No PE, mild pulmonary edema Right heart cath shows severe mixed pulmonary hypertension Pulmonology consult in place, will continue with IV diuresis T5 compression As needed pain medications, physical therapy evaluation Typically ambulates with a walker Less than 20% height loss, no retropulsion Did better with PT today May be appropriate for inp. rehab Await further PT History of CVA Hypertension Hyperlipidemia Hypothyroidism Chronic pain Continue home medications when verified DVT PPX: Continue Eliquis Code status: Full Discharge Plan: Home Plan to discharge in: Greater than 2 days Time Spent Managing Pts Care (In Minutes): 35
--- NOTE | 2023-11-23 21:29 | P.PN ---
Subjective Date of Service: 11/23/23 Chief Complaint: Severe pulmonary hypertension Subjective: Improving (And is improving no new complaints and able to ambulate still has a urinary catheter edema has declined) Review of Systems Unremarkable Physical Examination - Vital Signs Temperature: 97.1 F Blood Pressure: 146/65 Pulse: 82 Respirations: 16 Pulse Ox (%): 96 - Physical Exam General: Alert, In no apparent distress, Oriented x3 Respiratory: Clear to auscultation bilaterally, Diminished Cardiovascular: Regular rate/rhythm, Edema (2+ edema) Assessment And Plan - Current Problems (Diagnosis) (1) Severe pulmonary hypertension Current Visit: Yes Status: Acute Plan: Patient has severe pulmonary hypertension and is currently doing better on higher doses of spironolactone pressure is also declining edema is declining examination satisfactory air sat is 97%/cover creaser to p.o. Lasix 40 mg/continue to monitor decide if she needs treatment for pulmonary hypertension as an outpatient as the pulmonary Capillary wedge pressure is elevated diuretics still the first-line of therapy RA pressure mean of 20. RV pressure is 100/5, mean of 22. PA pressure is 102/31, mean of 54. Pulmonary wedge pressure was 27 mmHg. Average cardiac output was 4.4 L/minute and the pulmonary vascular resistance is 6 Wood units. Conclusion: Severe mixed pulmonary hypertension, arterial and venous, definitely with elevated pulmonary vascular resistance. She needs pulmonary artery hypertension treatment and also she needs patient will need outpatient pulmonary function test 2D echocardiogram NORMAL LEFT VENTRICULAR EJECTION FRACTION GREATER THAN 60% WITH NORMAL WALL MOTION 2. MODERATE CONCENTRIC LEFT VENTRICULAR HYPERTROPHY 3. GRADE I DIASTOLIC DYSFUNCTION 4. SEVERE PULMONARY HYPERTENSION WITH RIGHT VENTRICULAR SYSTOLIC PRESSURE GREATER THAN 70 mmHg 5. DILATED RIGHT VENTRICLE (MODERATE) WITH MILD DYSFUNCTION
[2023-11-23] MEDS: carvediloL 6.25 MG TAB PO SCH (22:37)
[2023-11-24 06:49] LABS: Absolute Basophils 0.2 K/uL (0-0.5); Absolute Eosinophils 0.2 K/uL (0-0.5); Absolute Lymphocytes (CBC) 0.9 K/uL (0.7-4.9); Absolute Monocytes 0.9 K/uL (0.1-1.3); Absolute Neutrophil 6.8 K/uL (1.8-8.0); Basophils % 2.1 % (0-1.3); Eosinophils % 2.7 % (0-4.4); Hematocrit 33.3 % (36.0-45.0); Hemoglobin 10.1 g/dL (12.0-15.0); Lymphocytes % 10.1 % (15.3-44.8); MCH 21.9 pg (27.0-35.0); MCHC 30.3 g/dL (32.0-36.0); MCV 72.1 fL (80-100); MPV 8.9 fL (7.6-11.3); Monocytes % 10.2 % (3.3-12.3); Neutrophils % 74.9 % (41.7-73.7); Nucleated Red Blood Cells % 0.1 % (0-0); Platelets 219 thou/uL (152-406); RBC Red Blood Cell Count 4.62 M/uL (3.86-4.86); Red Cell Distribution Width 20.5 % (12.1-15.2)
[2023-11-24 07:00] LABS: Albumin 3.2 g/dL (3.4-5.0); Albumin/Globulin Ratio 0.8 (1.1-1.8); Anion Gap 11.6 mEq/L (5.0-15.0); Bilirubin Total 3.4 mg/dL (0.2-1.0); Magnesium 2.1 mg/dL (1.6-2.4); Potassium 3.6 mEq/L (3.5-5.1); Protein, Total 7.2 g/dL (6.4-8.2)
[2023-11-24] MEDS: POTASSIUM CL SA 10 MEQ TAB PO ONE (09:46)
--- NOTE | 2023-11-24 13:36 | P.PN ---
Date of Service: 11/24/23 Subjective: No acute events overnight LE edema improving Did much better with PT yesterday ROS: 10 point ROS as noted above, otherwise negative Physical exam GEN: Alert, oriented, NAD HEENT: Normal conjunctiva, sclera anicteric CV: Regular rate and rhythm, 1+ pitting edema LE Pulm: Nonlabored respirations on room air ABD: Soft, nontender, nondistended MSK: No joint tenderness Integumentary: No rashes Neuro: Normal speech, normal affect Vitals reviewed Assessment: Syncope Acute on chronic diastolic congestive heart failure with volume overload, anasarca, noncompliance Atrial fibrillation on chronic anticoagulation therapy S/P ablation T5 compression fracture History of CAD with previous CABG Severe pulmonary hypertension History of CVA Hypertension Hyperlipidemia Hypothyroidism Chronic pain Plan: Syncope Acute on chronic diastolic congestive heart failure with volume overload, anasarca, noncompliance Atrial fibrillation on chronic anticoagulation therapy S/P ablation History of CAD with previous CABG Severe pulmonary hypertension She had an ablation for A-fib in May Describes a syncopal event prior to arrival Monitor on telemetry, obtain echocardiogram, trops trended negative/flat Cardiology consultation in place Patient grossly overloaded, has not been taking Lasix for the last 3 weeks Hutchinson catheter in place, continue aggressive IV diuresis with Lasix, spironolactone continued Echo shows NORMAL LEFT VENTRICULAR EJECTION FRACTION MODERATE CONCENTRIC LEFT VENTRICULAR HYPERTROPHY GRADE I DIASTOLIC DYSFUNCTION SEVERE PULMONARY HYPERTENSION WITH RIGHT VENTRICULAR SYSTOLIC PRESSURE GREATER THAN 70 mmHg DILATED RIGHT VENTRICLE (MODERATE) WITH MILD DYSFUNCTION. RECOMMEND TO RULE OUT PULMONARY EMBOLISM. CT Chest for PE done- No PE, mild pulmonary edema Right heart cath shows severe mixed pulmonary hypertension Pulmonology consult in place, will continue with IV diuresis Cardiology recommended repeat echo after diuresis Improving Working with PT T5 compression As needed pain medications, physical therapy evaluation Typically ambulates with a walker Less than 20% height loss, no retropulsion Did better with PT yesterday Await re eval sunday History of CVA Hypertension Hyperlipidemia Hypothyroidism Chronic pain Continue home medications when verified DVT PPX: Continue Eliquis Code status: Full Discharge Plan: Home Plan to discharge in: Greater than 2-3 days Time Spent Managing Pts Care (In Minutes): 35
[2023-11-25 06:31] LABS: Anion Gap 9.1 mEq/L (5.0-15.0); Potassium 3.1 mEq/L (3.5-5.1)
[2023-11-25] MEDS: POTASSIUM CL SA 10 MEQ TAB PO ONE (08:25)
--- NOTE | 2023-11-25 10:54 | P.PN ---
Subjective Date of Service: 11/25/23 Chief Complaint: Severe pulmonary hypertension Subjective: No new changes, No C/O voiced, Tolerating diet, Ambulating, Improving Review of Systems 10-point ROS is otherwise unremarkable Physical Examination - Vital Signs Temperature: 98.0 F Blood Pressure: 180/99 Pulse: 68 Respirations: 16 Pulse Ox (%): 97 - Physical Exam General: Alert, In no apparent distress HEENT: Atraumatic, PERRLA, EOMI Neck: Supple, JVD not distended Respiratory: Clear to auscultation bilaterally, Normal air movement Cardiovascular: Regular rate/rhythm, Normal S1 S2 Gastrointestinal: Normal bowel sounds, No tenderness Musculoskeletal: No tenderness Integumentary: No rashes Neurological: Normal speech, Normal tone, Normal affect Lymphatics: No axilla or inguinal lymphadenopathy - Studies Medications List Reviewed: Yes Assessment And Plan - Current Problems (Diagnosis) (1) Acute on chronic diastolic heart failure Current Visit: Yes Status: Acute Plan: Continue IV diuresis increase coreg to 12.5 mg po BID add Entreto 24/27 mg po BID repeat Echo to check filling pressures in am (2) Severe pulmonary hypertension Current Visit: Yes Status: Acute Plan: continue IV diuresis repeat echo in am may start sildenafil (3) Hypertension Current Visit: No Status: Chronic Plan: as above. Qualifiers: Hypertension type: primary hypertension Qualified Code(s): I10 - Essential (primary) hypertension
--- NOTE | 2023-11-25 11:08 | P.PN ---
Date of Service: 11/25/23 Subjective: No acute events overnight LE edema improving Did much better with PT yesterday More alert today ROS: 10 point ROS as noted above, otherwise negative Physical exam GEN: Alert, oriented, NAD, mental status waxes and wanes-normal per HEENT: Normal conjunctiva, sclera anicteric CV: Regular rate and rhythm, 1+ pitting edema LE Pulm: Nonlabored respirations on room air ABD: Soft, nontender, nondistended MSK: No joint tenderness Integumentary: No rashes Neuro: Normal speech, normal affect Vitals reviewed Assessment: Syncope Acute on chronic diastolic congestive heart failure with volume overload, anasarca, noncompliance Atrial fibrillation on chronic anticoagulation therapy S/P ablation T5 compression fracture History of CAD with previous CABG Severe pulmonary hypertension History of CVA Hypertension Hyperlipidemia Hypothyroidism Chronic pain Plan: Syncope Acute on chronic diastolic congestive heart failure with volume overload, anasarca, noncompliance Atrial fibrillation on chronic anticoagulation therapy S/P ablation History of CAD with previous CABG Severe pulmonary hypertension She had an ablation for A-fib in May Describes a syncopal event prior to arrival Monitor on telemetry, obtain echocardiogram, trops trended negative/flat Cardiology consultation in place Patient grossly overloaded, has not been taking Lasix for the last 3 weeks Hutchinson catheter in place, continue aggressive IV diuresis with Lasix, spironolactone continued Echo shows NORMAL LEFT VENTRICULAR EJECTION FRACTION MODERATE CONCENTRIC LEFT VENTRICULAR HYPERTROPHY GRADE I DIASTOLIC DYSFUNCTION SEVERE PULMONARY HYPERTENSION WITH RIGHT VENTRICULAR SYSTOLIC PRESSURE GREATER THAN 70 mmHg DILATED RIGHT VENTRICLE (MODERATE) WITH MILD DYSFUNCTION. RECOMMEND TO RULE OUT PULMONARY EMBOLISM. CT Chest for PE done- No PE, mild pulmonary edema Right heart cath shows severe mixed pulmonary hypertension Pulmonology consult in place, will continue with IV diuresis Cardiology recommended repeat echo after diuresis Added carvediolol 11/23, increased to 12.5mg BID 11/24 Added entresto per cardiology 11/24 Plan for repeat echo 11/25 to eval pulmonary hypertension Improving Working with PT T5 compression As needed pain medications, physical therapy evaluation Typically ambulates with a walker Less than 20% height loss, no retropulsion Did better with PT yesterday Await re eval sunday-possible DC home with PT vs SNF Family interested in inpatient rehab if appropriate but was walking around 140 ft Sunday History of CVA Hypertension Hyperlipidemia Hypothyroidism Chronic pain Home medications continued DVT PPX: Continue Eliquis Code status: Full Discharge Plan: Home Plan to discharge in: Greater than 2-3 days Time Spent Managing Pts Care (In Minutes): 35
[2023-11-25] MEDS: carvediloL 6.25 MG TAB PO SCH (18:00)
[2023-11-25] MEDS: SACUBITRIL/VALSARTAN 24/26 MG TAB PO SCH (20:05)
[2023-11-26 06:40] LABS: Anion Gap 10.4 mEq/L (5.0-15.0); Potassium 3.4 mEq/L (3.5-5.1)
--- NOTE | 2023-11-26 10:33 | P.PN ---
Subjective Date of Service: 11/26/23 Chief Complaint: Severe pulmonary hypertension Subjective: No new changes, No C/O voiced, Tolerating diet, Ambulating, Improving Review of Systems 10-point ROS is otherwise unremarkable Physical Examination - Vital Signs Temperature: 96.9 F Blood Pressure: 125/56 Pulse: 63 Respirations: 17 Pulse Ox (%): 94 - Physical Exam General: Alert, In no apparent distress HEENT: Atraumatic, PERRLA, EOMI Neck: Supple, JVD not distended Respiratory: Clear to auscultation bilaterally, Normal air movement Cardiovascular: Regular rate/rhythm, Normal S1 S2 Gastrointestinal: Normal bowel sounds, No tenderness Musculoskeletal: No tenderness Integumentary: No rashes Neurological: Normal speech, Normal tone, Normal affect Lymphatics: No axilla or inguinal lymphadenopathy - Studies Medications List Reviewed: Yes Assessment And Plan - Current Problems (Diagnosis) (1) Acute on chronic diastolic heart failure Current Visit: Yes Status: Acute Plan: Continue IV diuresis continue coreg to 12.5 mg po BID added Entreto 24/27 mg po BID repeat Echo to check filling pressures (2) Severe pulmonary hypertension Current Visit: Yes Status: Acute Plan: continue IV diuresis repeat echo may start sildenafil (3) Hypertension Current Visit: No Status: Chronic Plan: as above. Qualifiers: Hypertension type: primary hypertension Qualified Code(s): I10 - Essential (primary) hypertension
[2023-11-26] MEDS: POTASSIUM CL SA 10 MEQ TAB PO ONE (12:08)
--- NOTE | 2023-11-26 16:37 | EKG ---
Test Date: 2023-11-24 Test Time: 00:37:07 Program Host: MIRANDA MEASUREMENT RESULTS: Intervals: Rate: 74 NE: 104 QRSD: 98 QT: 452 QTc: 501 [place]: P: NE: 104 QRS: 94 T: 222 INTERPRETIVE STATEMENTS: Sinus rhythm with short NE with occasional premature ventricular complexes Incomplete right bundle branch block Possible Right ventricular hypertrophy ST & T wave abnormality, consider inferolateral ischemia Prolonged QT Abnormal ECG Compared to ECG 11/24/2023 00:35:52 Ventricular premature complex(es) now present Short NE interval now present Possible ischemia now present T-wave abnormality no longer present ST (T wave) deviation still present Electronically Signed On 11-26-23 16:31:47 CDT by Blas Mcdermott
--- NOTE | 2023-11-26 16:37 | EKG ---
Test Date: 2023-11-24 Test Time: 00:41:00 Business Associate: MIRANDA MEASUREMENT RESULTS: Intervals: Rate: 74 [place]: 136 QRSD: 100 QT: 438 QTc: 486 [place]: P: [place]: 136 QRS: 95 T: 221 INTERPRETIVE STATEMENTS: Normal sinus rhythm Incomplete right bundle branch block Possible Right ventricular hypertrophy ST & T wave abnormality, consider inferolateral ischemia Prolonged QT Abnormal ECG Compared to ECG 11/24/2023 00:37:07 Ventricular premature complex(es) no longer present Short [place] interval no longer present ST (T wave) deviation still present Possible ischemia still present Electronically Signed On 11-26-23 16:31:44 CDT by Blas Mcdermott
--- NOTE | 2023-11-26 16:38 | EKG ---
Test Date: 2023-11-24 Test Time: 00:35:52 Medical Claims Assistant: MIRANDA MEASUREMENT RESULTS: Intervals: Rate: 74 [place]: 120 QRSD: 98 QT: 446 QTc: 495 [place]: P: [place]: 120 QRS: 91 T: 214 INTERPRETIVE STATEMENTS: Normal sinus rhythm Incomplete right bundle branch block Possible Right ventricular hypertrophy ST depression, consider subendocardial injury or digitalis effect Nonspecific T wave abnormality Prolonged QT Abnormal ECG Compared to ECG 11/19/2023 16:46:34 Incomplete right bundle-branch block now present T-wave abnormality now present ST (T wave) deviation still present Electronically Signed On 11-26-23 16:31:49 CDT by Blas Mcdermott
--- NOTE | 2023-11-26 19:22 | P.PN ---
Date of Service: 11/26/23 Subjective: Ambulating in the room with and tech's help Ambulated with therapy well ROS: 10 point ROS as noted above, otherwise negative Physical exam GEN: Alert and oriented, NAD, mental status waxes and wanes-normal per HEENT: Normal conjunctiva, sclera anicteric CV: RRR, S1 S2 present, 1+ pitting edema LE Pulm: Nonlabored respirations on room air, symmetrical chest wall movement ABD: Soft and benign on palpation, normal active bowel sounds, ND/NT MSK: No joint tenderness Integumentary: No rashes Neuro: Normal speech, normal affect Vitals reviewed Assessment: Syncope Acute on chronic diastolic congestive heart failure with volume overload, anasarca, noncompliance Atrial fibrillation on chronic anticoagulation therapy S/P ablation T5 compression fracture History of CAD with previous CABG Severe pulmonary hypertension History of CVA Hypertension Hyperlipidemia Hypothyroidism Chronic pain Plan: Syncope Acute on chronic diastolic congestive heart failure with volume overload, anasarca, noncompliance Atrial fibrillation on chronic anticoagulation therapy S/P ablation History of CAD with previous CABG Severe pulmonary hypertension She had an ablation for A-fib in May Describes a syncopal event prior to arrival Monitor on telemetry, obtain echocardiogram, trops trended negative/flat Cardiology managing Patient grossly overloaded, has not been taking Lasix for the last 3 weeks Hutch[address] catheter in place, continue aggressive IV diuresis with Lasix, spironolactone continued Echo shows NORMAL LEFT VENTRICULAR EJECTION FRACTION MODERATE CONCENTRIC LEFT VENTRICULAR HYPERTROPHY GRADE I DIASTOLIC DYSFUNCTION SEVERE PULMONARY HYPERTENSION WITH RIGHT VENTRICULAR SYSTOLIC PRESSURE GREATER THAN 70 mmHg DILATED RIGHT VENTRICLE (MODERATE) WITH MILD DYSFUNCTION. RECOMMEND TO RULE OUT PULMONARY EMBOLISM. CT Chest for PE done- No PE, mild pulmonary edema Right heart cath shows severe mixed pulmonary hypertension Pulmonology consult in place, will continue with IV diuresis Cardiology recommended repeat echo after diuresis Added carvediolol 11/23, increased to 12.5mg BID 11/24 Added entresto per cardiology 11/24 Plan for repeat echo 11/25 to eval pulmonary hypertension- results pending Improving Working with PT T5 compression As needed pain medications, physical therapy evaluation Typically ambulates with a walker Less than 20% height loss, no retropulsion Did better with PT yesterday Await re eval sunday-possible DC home with PT vs SNF Family interested in inpatient rehab if appropriate but was walking around 140 ft Sunday History of CVA Hypertension Hyperlipidemia Hypothyroidism Chronic pain Home medications continued DVT PPX: Continue Eliquis Code status: Full Discharge Plan: Home Plan to discharge in: Greater than 2-3 days
[2023-11-26] MEDS: SILDENAFIL CITRATE 20 MG TABLET PO SCH (20:27)
[2023-11-26] MEDS: GABAPENTIN 300 MG CAP PO PRN (20:33)
[2023-11-27 06:02] LABS: Anion Gap 9.8 mEq/L (5.0-15.0); Potassium 3.8 mEq/L (3.5-5.1)
--- NOTE | 2023-11-27 07:04 | ECHO ---
HEIGHT: 5 ft 3 in WEIGHT: 200 lb 0 oz DATE OF STUDY: 11/26/[address]: Kvng Mccartney NP 2-DIMENSIONAL: YES M.MODE: YES DOPPLER: YES COLOR FLOW: YES TDS: PORTABLE: YES DEFINITY: BUBBLE STUDY: DIAGNOSIS: RE-EVALUATE AFTER DIURESES CARDIAC HISTORY: CATHERIZATION: NO SURGERY: NO PROSTHETIC VALVE: NO PACEMAKER: NO MEASUREMENTS (cm) DIASTOLIC (NORMALS) SYSTOLIC (NORMALS) IVSd 1.2 (0.6-1.2) LA Diam 3.3 (1.9-4.0) LVEF 60% LVIDd 3.5 (3.5-5.7) LVIDs 2.4 (2.0-3.5) %FS 31% LVPWd 1.2 (0.6-1.2) Ao Diam 2.3 (2.0-3.7) 2 DIMENSIONAL ASSESSMENT: RIGHT ATRIUM: LEFT ATRIUM: RIGHT VENTRICLE: LEFT VENTRICLE: TRICUSPID VALVE: MITRAL VALVE: PULMONIC VALVE: AORTIC VALVE: PERICARDIAL EFFUSION: AORTIC ROOT: LEFT VENTRICULAR WALL MOTION: DOPPLER/COLOR FLOW: COMMENTS: 1. FOCUSED ECHOCARDIOGRAM WAS DONE TO EVALUATE RIGHT VENTRICULAR SYSTOLIC PRESSURE. 2. RIGHT VENTRICULAR SYSTOLIC PRESSURE IS 30 mmHg FOR THIS ECHOCARDIOGRAM. TECHNOLOGIST: ALOK FRIEDMAN
[2023-11-27] MEDS: POTASSIUM CL SA 10 MEQ TAB PO ONE (09:27)
--- NOTE | 2023-11-27 12:27 | P.PN ---
Subjective Date of Service: 11/27/23 Chief Complaint: Severe pulmonary hypertension Subjective: No new changes, No C/O voiced, Tolerating diet, Ambulating, Improving Review of Systems 10-point ROS is otherwise unremarkable Physical Examination - Vital Signs Temperature: 97.0 F Blood Pressure: 111/52 Pulse: 58 Respirations: 15 Pulse Ox (%): 97 - Physical Exam General: Alert, In no apparent distress HEENT: Atraumatic, PERRLA, EOMI Neck: Supple, JVD not distended Respiratory: Clear to auscultation bilaterally, Normal air movement Cardiovascular: Regular rate/rhythm, Normal S1 S2 Gastrointestinal: Normal bowel sounds, No tenderness Musculoskeletal: No tenderness Integumentary: No rashes Neurological: Normal speech, Normal tone, Normal affect Lymphatics: No axilla or inguinal lymphadenopathy - Studies Medications List Reviewed: Yes Assessment And Plan - Current Problems (Diagnosis) (1) Acute on chronic diastolic heart failure Current Visit: Yes Status: Acute Plan: switch to lasix 40 mg po BID continue coreg to 12.5 mg po BID continue Entreto 24/27 mg po BID repeat Echo shows RVSP of 30 mmHg (2) Severe pulmonary hypertension Current Visit: Yes Status: Acute Plan: outpatient follow up with cardiology and pulmonary to consider starting sildenafil (3) Hypertension Current Visit: No Status: Chronic Plan: as above. Qualifiers: Hypertension type: primary hypertension Qualified Code(s): I10 - Essential (primary) hypertension
--- NOTE | 2023-11-27 12:46 | P.PN ---
Subjective Date of Service: 11/27/23 Chief Complaint: Severe pulmonary hypertension Subjective: Improving (Patient is improving doing much better more alert responsive wants to go home) Review of Systems 10-point ROS is otherwise unremarkable Physical Examination - Vital Signs Temperature: 97.0 F Blood Pressure: 111/52 Pulse: 58 Respirations: 15 Pulse Ox (%): 97 - Physical Exam General: Alert, Oriented x3 Neck: Supple Respiratory: Clear to auscultation bilaterally Cardiovascular: No edema, Normal S1 S2 - Studies Medications List Reviewed: Yes Assessment And Plan - Current Problems (Diagnosis) (1) Severe pulmonary hypertension Current Visit: Yes Status: Acute Plan: Patient is 73 years of age admitted with severe pulmonary hypertension cor pulmonale doing much better Signs oxygenation stable plan to discharge Lasix once a day spironolactone avoid sildenafil for now as a propensity to cause hypotension side as an outpatient upon her pulmonary edema and her right ventricular pressures in about 2 to 4 weeks RA pressure mean of 20. RV pressure is 100/5, mean of 22. PA pressure is 102/31, mean of 54. Pulmonary wedge pressure was 27 mmHg. Average cardiac output was 4.4 L/minute and the pulmonary vascular resistance is 6 Wood units. Conclusion: Severe mixed pulmonary hypertension, arterial and venous, definitely with elevated pulmonary vascular resistance. She needs pulmonary artery hypertension treatment and also she needs patient will need outpatient pulmonary function test 2D echocardiogram NORMAL LEFT VENTRICULAR EJECTION FRACTION GREATER THAN 60% WITH NORMAL WALL MOTION 2. MODERATE CONCENTRIC LEFT VENTRICULAR HYPERTROPHY 3. GRADE I DIASTOLIC DYSFUNCTION 4. SEVERE PULMONARY HYPERTENSION WITH RIGHT VENTRICULAR SYSTOLIC PRESSURE GREATER THAN 70 mmHg 5. DILATED RIGHT VENTRICLE (MODERATE) WITH MILD DYSFUNCTION
--- NOTE | 2023-11-27 14:44 | P.DS ---
Admission Date: 11/19/23 Discharge Date: 11/27/23 Disposition: DC HOME/HOME HEALTH CARE Discharge Condition: FAIR Reason for Admission: Severe pulmonary hypertension Vital Signs/Physical Exam: Temp Pulse Resp BP Pulse Ox 97.0 F 58 15 111/52 L 97 11/27/23 12:46 11/27/23 12:46 11/27/23 12:46 11/27/23 12:46 11/27/23 12:46 Laboratory Data at Discharge: WBC 9.10 thou/uL (4.3-10.9) 11/24/23 05:30 Hgb 10.1 g/dL (12.0-15.0) L 11/24/23 05:30 Hct 33.3 % (36.0-45.0) L 11/24/23 05:30 Plt Count 219 thou/uL (152-406) 11/24/23 05:30 Sodium 138 mEq/L (136-145) 11/27/23 05:20 Potassium 3.8 mEq/L (3.5-5.1) 11/27/23 05:20 BUN 18 mg/dL (7-18) 11/27/23 05:20 Creatinine 1.06 mg/dL (0.55-1.02) H 11/27/23 05:20 Glucose 119 mg/dL (74-106) H 11/27/23 05:20 Magnesium 2.1 mg/dL (1.6-2.4) 11/24/23 05:30 Total Bilirubin 3.4 mg/dL (0.2-1.0) H 11/24/23 05:30 AST 25 U/L (15-37) 11/24/23 05:30 ALT 22 U/L (13-56) 11/24/23 05:30 Alkaline Phosphatase 118 U/L (45-117) H 11/24/23 05:30 Home Medications: Amlodipine [Norvasc*] 10 mg PO DAILY 04/19/22 Apixaban [Eliquis] 5 mg PO BID 04/19/22 Duloxetine [Cymbalta *] 20 mg PO BEDTIME 04/19/22 Gabapentin [Neurontin] 900 mg PO BEDTIME PRN PRN 04/19/22 Levothyroxine [Synthroid*] 2 tab PO DAILY 12/14/22 Melatonin 10 mg PO BEDTIME PRN 12/14/22 Rosuvastatin Calcium [Crestor] 20 mg PO BEDTIME 04/19/22 Insulin 70/30 NPH/Reg Human [Novolin 70/30*] 30 unit SQ DAILY WITH BREAKFAST #10 ml 05/02/22 Aspirin 81 mg PO DAILY 05/13/22 Cyanocobalamin (Vitamin B-12) [Vitamin B12] 5,000 mcg PO DAILY 05/13/22 Mv-Mn/Iron/Folic Acid/Herb 190 [Vitamin D3 Complete Caplet] 1 tab PO DAILY 05/13/22 Apixaban [Eliquis] 5 mg PO BID 11/27/23 Furosemide [Lasix] 40 mg PO BID 10 Days #20 tab 11/27/23 Potassium Chloride [K-Dur] 20 meq PO BID 10 Days #20 tab 11/27/23 Sacubitril/Valsartan [Entresto 24 mg-26 mg Tablet] 1 tab PO BID 30 Days #60 tab 11/27/23 Spironolactone [Aldactone*] 50 mg PO DAILY 30 Days #60 tab 11/27/23 carvediloL [Coreg*] 12.5 mg PO BID 6AM 6PM 30 Days #60 tab 11/27/23 New Medications: Spironolactone [Aldactone*] 50 mg PO DAILY 30 Days #60 tab carvediloL [Coreg*] 12.5 mg PO BID 6AM 6PM 30 Days #60 tab Sacubitril/Valsartan [Entresto 24 mg-26 mg Tablet] 1 tab PO BID 30 Days #60 tab Potassium Chloride [K-Dur] 20 meq PO BID 10 Days #20 tab Furosemide [Lasix] 40 mg PO BID 10 Days #20 tab Physician Discharge Instructions: 1. Please call and schedule a follow-up appointment with your PCP in 3-5 days - Please follow-up with your PCP for medication refills/adjustments 2. Please call and schedule a follow-up appointment with Dr. Gonzalez in 3-5 days 3. Please Call and schedule a follow-up appointment with Dr. Rodriguez 3. Continue heart healthy diet 4. activity restrictions, fall precautions, work with physical therapy 5. Return to the ED if symptoms worsen New medication Aldactone 50 mg p.o. daily Furosemide 40 mg BID x 10 days Potassium 20 mg BID x 10 days Entresto 24-26 mg BID x 30 days Home Health arranged: [facility] ([facility]) P:[phone] F:[phone] Diet: AHA Activity: Fall precautions Followup: Ayaan Gonzalez MD [ACTIVE - CAN ADMIT] - Julio Rodriguez MD [ACTIVE - CAN ADMIT] - Yusef Zurita MD [Primary Care Provider] -
--- NOTE | 2023-11-27 18:31 | RAD REPORT ---
EXAM DESCRIPTION: CT - Ct Stroke Brain Wo Cont - 11/27/2023 6:12 pm CLINICAL HISTORY: AMS COMPARISON: Head Brain Wo Cont dated 04/10/2022; Head angio dated 04/04/2022; Head C Spine Cap Wo Con dated 11/19/2023 TECHNIQUE: Noncontrast head CT images were obtained without IV contrast. Multiplanar reformats were generated and reviewed. All CT scans are performed using dose optimization technique as appropriate and may include automated exposure control or mA/KV adjustment according to patient size. FINDINGS: No intracranial hemorrhage, mass, or edema. Midline structures are unremarkable. Normal ventricular caliber for age. Stable left MCA territory encephalomalacia centered on the left insula. Iniguez-white matter differentia tion is otherwise preserved, without evidence of acute infarct. No abnormal extra-axial fluid collect ions. Mastoid air cells and visualized portions of the paranasal sinuses are clear. No acute bony findings. IMPRESSION: No evidence of an acute intracranial process. Stable left MCA territory encephalomalacia . The findings were communicated to Monet Aviles on 11/27/2023 at 18:25 hours.
[2023-11-27 18:36] LABS: Arterial Blood Carboxyhemoglob 2.2 % (0-1.5); Blood Gas Oxyhemoglobin 92.6 % (94-97); Blood Gas THB 10.2 g/dl (12-18); Blood O2 Saturation 95.7 % (92-98.5)
[2023-11-27 18:51] LABS: Absolute Basophils 0.3 K/uL (0-0.5); Absolute Eosinophils 0.4 K/uL (0-0.5); Absolute Lymphocytes (CBC) 1.3 K/uL (0.7-4.9); Absolute Monocytes 1.2 K/uL (0.1-1.3); Absolute Neutrophil 9.7 K/uL (1.8-8.0); Basophils % 2.2 % (0-1.3); Hematocrit 33.6 % (36.0-45.0); Lymphocytes % 9.9 % (15.3-44.8); MCH 22.1 pg (27.0-35.0); MCHC 29.9 g/dL (32.0-36.0); MCV 74.1 fL (80-100); MPV 8.7 fL (7.6-11.3); Monocytes % 9.1 % (3.3-12.3); Neutrophils % 75.8 % (41.7-73.7); Nucleated Red Blood Cells % 0.1 % (0-0); Platelets 267 thou/uL (152-406); RBC Red Blood Cell Count 4.54 M/uL (3.86-4.86); Red Cell Distribution Width 21.1 % (12.1-15.2)
--- NOTE | 2023-11-27 19:01 | P.PN ---
Subjective Date of Service: 11/27/23 Chief Complaint: Severe pulmonary hypertension reported patient became mute, would not respond verbally and kept staring. Patient seen and evaluated. She was staring, was not responding verbally or obeying commands. Stroke protocol was called, head CT was done immediately which was negative for acute CVA. Patient is currently more responsive. Physical Examination - Vital Signs Temperature: 97.5 F Blood Pressure: 101/51 Pulse: 57 Respirations: 12 Pulse Ox (%): 93 - Studies Medications List Reviewed: Yes Assessment And Plan - Plan Physical exam GEN: Somnolent, morbidly obese. HEENT: Normal conjunctiva, sclera anicteric CV: RRR, S1 S2 present, 1+ pitting edema LE Pulm: symmetrical chest wall movement, clear to auscultation bilaterally. ABD: Soft, nondistended, normal active bowel sounds, ND/NT MSK: No joint tenderness Integumentary: No rashes Neuro: Somnolent. Assessment: Syncope Acute on chronic diastolic congestive heart failure with volume overload, anasarca, noncompliance Atrial fibrillation on chronic anticoagulation therapy S/P ablation T5 compression fracture History of CAD with previous CABG Severe pulmonary hypertension History of CVA Hypertension Hyperlipidemia Hypothyroidism Chronic pain Plan: Syncope Transient altered mental status Unknown etiology. History of A-fib status post ablation. Arterial blood gas shows no CO2 retention. Head CT negative for acute CVA. Patient symptoms appear to be episodic. Cardiac monitoring to rule out arrhythmia. Neurology consult Obtain EEG. Neurochecks. Hold gabapentin Acute on chronic diastolic congestive heart failure with volume overload, anasarca, noncompliance Atrial fibrillation on chronic anticoagulation therapy S/P ablation History of CAD with previous CABG Severe pulmonary hypertension She had an ablation for A-fib in May Right heart catheterization by cardiology reported severe pulmonary hypertension. Cardiology is following History of noncompliance with Lasix. Status post IV Lasix. Pulmonary edema and anasarca significantly improved. Oral Lasix maintenance as needed. Echo shows NORMAL LEFT VENTRICULAR EJECTION FRACTION MODERATE CONCENTRIC LEFT VENTRICULAR HYPERTROPHY GRADE I DIASTOLIC DYSFUNCTION SEVERE PULMONARY HYPERTENSION WITH RIGHT VENTRICULAR SYSTOLIC PRESSURE GREATER THAN 70 mmHg DILATED RIGHT VENTRICLE (MODERATE) WITH MILD DYSFUNCTION. RECOMMEND TO RULE OUT PULMONARY EMBOLISM. CT Chest for PE-No PE. Pulmonology input appreciated. Cardiology recommended repeat echo after diuresis Reduce Coreg dose due to soft blood pressure 11/26 Continue Eliquis. Cardiology added Entresto. Continue PT T5 compression As needed pain medications. Typically ambulates with a walker Less than 20% height loss, no retropulsion Continue PT. Hold gabapentin due to AMS. History of CVA Hypertension Hyperlipidemia Hypothyroidism Head CT negative Continue home medications. DVT PPX: Continue Eliquis Code status: Full
[2023-11-27 19:11] LABS: Albumin 2.9 g/dL (3.4-5.0); Albumin/Globulin Ratio 0.8 (1.1-1.8); Bilirubin Total 2.2 mg/dL (0.2-1.0); Globulin 3.6 g/dL (2.3-3.5); Magnesium 1.8 mg/dL (1.6-2.4); Phosphorus 2.9 mg/dL (2.5-4.9); Protein, Total 6.5 g/dL (6.4-8.2); Troponin High Sensitivity 39.9 pg/mL (<58.9)
[2023-11-27 19:32] LABS: PT Prothrombin Time 28.6 SECONDS (9.4-12.5); Protime INR 2.63
[2023-11-27 20:55] LABS: Anisocytosis 1+; Blood Morphology Comment NOTED (NOT SEEN); Platelet Estimate ADEQ; Poikilocytosis 1+; White Blood Cell Scan OK (OK)
[2023-11-27] MEDS: MELATONIN 5 MG TABLET PO PRN (21:33)
[2023-11-28 09:13] LABS: Anion Gap 13.1 mEq/L (5.0-15.0); Potassium 4.1 mEq/L (3.5-5.1)
[2023-11-28] MEDS: NA CHLORIDE 0.9% 1,000 ML IV SCH (12:00)
--- NOTE | 2023-11-28 12:05 | P.PN ---
Subjective Date of Service: 11/28/23 Chief Complaint: Severe pulmonary hypertension Subjective: No new changes, No C/O voiced, Tolerating diet, Ambulating, Improving Review of Systems 10-point ROS is otherwise unremarkable Physical Examination - Vital Signs Temperature: 97.3 F Blood Pressure: 128/58 Pulse: 53 Respirations: 18 Pulse Ox (%): 95 - Physical Exam General: Alert, In no apparent distress HEENT: Atraumatic, PERRLA, EOMI Neck: Supple, JVD not distended Respiratory: Clear to auscultation bilaterally, Normal air movement Cardiovascular: Regular rate/rhythm, Normal S1 S2 Gastrointestinal: Normal bowel sounds, No tenderness Musculoskeletal: No tenderness Integumentary: No rashes Neurological: Normal speech, Normal tone, Normal affect Lymphatics: No axilla or inguinal lymphadenopathy - Studies Medications List Reviewed: Yes Assessment And Plan - Current Problems (Diagnosis) (1) Acute on chronic diastolic heart failure Current Visit: Yes Status: Acute Plan: switch to lasix 40 mg po BID continue coreg to 12.5 mg po BID continue Entreto 24/27 mg po BID repeat Echo shows RVSP of 30 mmHg (2) Severe pulmonary hypertension Current Visit: Yes Status: Acute Plan: outpatient follow up with cardiology and pulmonary to consider starting sildenafil (3) Hypertension Current Visit: No Status: Chronic Plan: as above. Qualifiers: Hypertension type: primary hypertension Qualified Code(s): I10 - Essential (primary) hypertension
[2023-11-28] MEDS ORDERED: levETIRAcetam 500 MG in NA CHLORIDE 0.9% 100 ML IV ONE (12:15)
[2023-11-28] MEDS: levETIRAcetam 500 MG TAB PO ONE (13:18)
--- NOTE | 2023-11-28 18:48 | RAD REPORT ---
EXAM DESCRIPTION: MRI - Brain Wo Cont - 11/28/2023 6:38 pm CLINICAL HISTORY: Transient AMS COMPARISON: Brain Wo Cont dated 07/12/2022; Brain W/Wo Cont dated 04/07/2022; Brain W/Wo Cont dated 01/13; MRA Head Wo Cont dated 01/13/2019 TECHNIQUE: Sagittal T1-weighted images were obtained along with PD/heavily T2-weighted and T2-FLAIR images. Axial DWI and ADC mapping sequences were also obtained along with coronal heavily T2-weighted images were obtained. FINDINGS: No intracranial hemorrhage, mass or acute infarction. There is no edema or shift of midlin e structures. No extra-axial fluid collections. Signal voids are seen as a normal finding in the antonio r intracranial vessels. No significant white matter disease. Remote small left MCA territory infarct with susceptibility artifact from laminar necrosis. Mild chronic small vessel ischemic changes. Cereb ral atrophy. Mastoid air cells and paranasal sinuses are clear. IMPRESSION: No acute intracranial abnormality. Specifically, no evidence of acute infarct. Remote le ft MCA territory infarct.
--- NOTE | 2023-11-28 19:23 | P.PN ---
Date of Service: 11/28/23 Subjective: Awake and ready to discharge EEG and MRI today She refused IV to be placed, MRI without contrast was performed likely discharge in the AM Dr. Peres to review the EEG ROS: 10 point ROS as noted above, otherwise negative Physical exam GEN: Alert and oriented, NAD, irritated, mental status waxes and wanes-normal per HEENT: Normal conjunctiva, sclera anicteric CV: Regular rate and rhythm, S1 S2 present, 1+ pitting edema LE Pulm: Nonlabored respirations on room air, symmetrical chest wall movement ABD: Soft and benign on palpation, normal active bowel sounds, ND/NT MSK: No joint tenderness Integumentary: No rashes Neuro: Normal speech, normal affect Vitals reviewed Assessment: Syncope Transient altered mental status Acute on chronic diastolic congestive heart failure with volume overload, anasarca, noncompliance Atrial fibrillation on chronic anticoagulation therapy S/P ablation T5 compression fracture History of CAD with previous CABG Severe pulmonary hypertension History of CVA Hypertension Hyperlipidemia Hypothyroidism Chronic pain Plan: Syncope Transient altered mental status Unknown etiology. History of A-fib status post ablation. Arterial blood gas shows no CO2 retention. Head CT negative for acute CVA. Patient symptoms appear to be episodic. Cardiac monitoring to rule out arrhythmia. Neurology consult EEG results pending MRI without contrast results pending Neurochecks Holding gabapentin NIHSS 0 Acute on chronic diastolic congestive heart failure with volume overload, anasarca, noncompliance Atrial fibrillation on chronic anticoagulation therapy S/P ablation History of CAD with previous CABG Severe pulmonary hypertension She had an ablation for A-fib in May Describes a syncopal event prior to arrival Monitor on telemetry, obtain echocardiogram, trops trended negative/flat Cardiology managing Patient grossly overloaded, has not been taking Lasix for the last 3 weeks Hutch[address] catheter in place, continue aggressive IV diuresis with Lasix, spironolactone continued Echo shows NORMAL LEFT VENTRICULAR EJECTION FRACTION MODERATE CONCENTRIC LEFT VENTRICULAR HYPERTROPHY GRADE I DIASTOLIC DYSFUNCTION SEVERE PULMONARY HYPERTENSION WITH RIGHT VENTRICULAR SYSTOLIC PRESSURE GREATER THAN 70 mmHg DILATED RIGHT VENTRICLE (MODERATE) WITH MILD DYSFUNCTION. RECOMMEND TO RULE OUT PULMONARY EMBOLISM. CT Chest for PE done- No PE, mild pulmonary edema Right heart cath shows severe mixed pulmonary hypertension Pulmonology consult in place, will continue with IV diuresis Cardiology recommended repeat echo after diuresis Added carvediolol 11/23, increased to 12.5mg BID 11/24 Added entresto per cardiology 11/24 Plan for repeat echo 11/25 to eval pulmonary hypertension- results pending Improving Working with PT T5 compression As needed pain medications, physical therapy evaluation Typically ambulates with a walker Less than 20% height loss, no retropulsion Did better with PT yesterday Await re eval sunday-possible DC home with PT vs SNF Family interested in inpatient rehab if appropriate but was walking around 140 ft Sunday History of CVA Hypertension Hyperlipidemia Hypothyroidism Chronic pain CT head negative Home medications continued DVT PPX: Continue Eliquis Code status: Full Discharge Plan: Home Plan to discharge in: Greater than 2-3 days
[2023-11-29] MEDS: levETIRAcetam 500 MG TAB PO ONE (09:09)
--- NOTE | 2023-11-29 09:37 | P.DS ---
Admission Date: 11/19/23 Discharge Date: 11/29/23 Disposition: DC HOME/HOME HEALTH CARE Discharge Condition: FAIR Reason for Admission: Severe pulmonary hypertension Brief History of Present Illness: Diagnosis Syncope seizure episode Transient altered mental status Acute on chronic diastolic congestive heart failure with volume overload, anasarca, noncompliance Atrial fibrillation on chronic anticoagulation therapy S/P ablation T5 compression fracture History of CAD with previous CABG Severe pulmonary hypertension History of CVA Hypertension Hyperlipidemia Hypothyroidism Chronic pain HPI 11/19/23 Renetta Dey is a 73-year-old female with history of chronic diastolic congestive heart failure, paroxysmal atrial fibrillation status post ablation, chronic pain, hypertension, hyperlipidemia, hypothyroidism presents emergency department chief complaint of syncope, swelling. She reports that she was sitting in front of her fridge emptying groceries when she collapsed, she denies any prodrome of chest pain, dyspnea, headache. Her heard her fall from across the house and came over by the time he got there about 30 seconds later she was awake and talking. She reports she has not been taking her Lasix for the last 3 weeks or so, she does not like that when she takes it she cannot go anywhere. She usually gets around with a walker. She was evaluated in the emergency room her labs are significant for hemoglobin of 10.7 medic at 37.[address] head/C- spine/chest/abdomen/pelvis was performed given her fall which showed acute versus subacute T5 compression fracture with less than 10% height loss, no bony retropulsion, anasarca including small bilateral pleural effusions and moderate ascites. ED prior wishes to meet patient for syncope, CHF exacerbation, T5 compression fracture. Hospital Course: Renetta Dey is a pleasant 73 year old female with a past medical history significant for chronic diastolic congestive heart failure, paroxysmal atrial fibrillation status post ablation, chronic pain, hypertension, hyperlipidemia, hypothyroidism who was admitted to the [facility] on 11/19/23 for syncopal episode. Renetta presented to the ED with chief complaint of syncopal episode that lasted only seconds while at home. She had not taken her Lasix for approximately 3 weeks. During this admission she was seen by Dr. Rodriguez, bead cutter, and was successfully diuresed and adjustments were made to her medications to improve right ventricular systolic pressure. Dr. Gonzalez was consulted for pulmonary hypertension treatment and requested follow-up for pulmonary function test in his office. Dr. Peres was consulted due to the seizure/stroke like symptoms the day of original discharge. EEG was ordered and MRI showing a previous stroke. No new acute issues per the reports. She will need to follow-up with Dr. Peres for serial EEG management for a clear diagnosis. Prior to discharge , she experienced seizure/stroke symptoms of mute, unable to follow commands, intermittent speaking then mute again. A code stroke was called, CT head was negative, she refused the carotid ultrasound, she initially refused the EEG then agreed later. She refused and IV, Dr. Peres recommended Keppra 250 BID for seven days then increased to 500 BID and follow up at his office for further management. She had returned all base line capabilities quickly, began to eat and drink, ambulated to the bathroom with assistance, and remained hemodynamically stable. On 11/28/26, Renetta was seen on morning rounds and deemed medically stable for discharge. Renetta was discharged with instructions to schedule follow-up appointments with Dr. Rodriguez, Dr. Peres, Dr. Gonzalez, and PCP. Renetta was provided prescriptions for Keppra, Aldactone, Coreg, Entresto, potassium, and furosemide. Physical exam GEN: AAOx3, irritatable, mental status waxes and wanes-normal per HEENT: Normal conjunctiva, sclera anicteric CV: RRR, S1 S2 present, 1+ pitting edema LE Pulm: bilaterally clear breath sounds, symmetrical chest wall movement, on RA ABD: Soft on palpation, normal active bowel sounds, non-tender MSK: No joint tenderness Integumentary: No rashes Neuro: Normal speech, normal affect Vital Signs/Physical Exam: Temp Pulse Resp BP Pulse Ox 98.0 F 70 15 147/57 H 97 11/29/23 08:00 11/29/23 09:10 11/29/23 08:00 11/29/23 09:10 11/29/23 08:00 Laboratory Data at Discharge: WBC 12.70 thou/uL (4.3-10.9) H 11/27/23 18:25 Hgb 10.0 g/dL (12.0-15.0) L 11/27/23 18:25 Hct 33.6 % (36.0-45.0) L 11/27/23 18:25 Plt Count 267 thou/uL (152-406) 11/27/23 18:25 PT 28.6 SECONDS (9.4-12.5) H 11/27/23 18:31 INR 2.63 11/27/23 18:31 APTT 37.5 SECONDS (24.3-36.9) H 11/27/23 18:25 Sodium 137 mEq/L (136-145) 11/28/23 08:35 Potassium 4.1 mEq/L (3.5-5.1) 11/28/23 08:35 BUN 29 mg/dL (7-18) H 11/28/23 08:35 Creatinine 1.33 mg/dL (0.55-1.02) H 11/28/23 08:35 Glucose 154 mg/dL (74-106) H 11/28/23 08:35 Phosphorus 2.9 mg/dL (2.5-4.9) 11/27/23 18:25 Magnesium 1.8 mg/dL (1.6-2.4) 11/27/23 18:25 Total Bilirubin 2.2 mg/dL (0.2-1.0) H 11/27/23 18:25 AST 27 U/L (15-37) 11/27/23 18:25 ALT 19 U/L (13-56) 11/27/23 18:25 Alkaline Phosphatase 109 U/L (45-117) 11/27/23 18:25 Home Medications: Amlodipine [Norvasc*] 10 mg PO DAILY 04/19/22 Apixaban [Eliquis] 5 mg PO BID 04/19/22 Duloxetine [Cymbalta *] 20 mg PO BEDTIME 04/19/22 Gabapentin [Neurontin] 900 mg PO BEDTIME PRN PRN 04/19/22 Levothyroxine [Synthroid*] 2 tab PO DAILY 04/19/22 Melatonin 10 mg PO BEDTIME PRN 04/19/22 Rosuvastatin Calcium [Crestor] 20 mg PO BEDTIME 04/19/22 Insulin 70/30 NPH/Reg Human [Novolin 70/30*] 30 unit SQ DAILY WITH BREAKFAST #10 ml 05/02/22 Aspirin 81 mg PO DAILY 05/13/22 Cyanocobalamin (Vitamin B-12) [Vitamin B12] 5,000 mcg PO DAILY 05/13/22 Mv-Mn/Iron/Folic Acid/Herb 190 [Vitamin D3 Complete Caplet] 1 tab PO DAILY 05/13/22 Apixaban [Eliquis] 5 mg PO BID 11/27/23 Furosemide [Lasix] 40 mg PO BID 10 Days #20 tab 11/27/23 Potassium Chloride [K-Dur] 20 meq PO BID 10 Days #20 tab 11/27/23 Sacubitril/Valsartan [Entresto 24 mg-26 mg Tablet] 1 tab PO BID 30 Days #60 tab 11/27/23 Spironolactone [Aldactone*] 50 mg PO DAILY 30 Days #60 tab 11/27/23 carvediloL [Coreg*] 12.5 mg PO BID 6AM 6PM 30 Days #60 tab 11/27/23 Levetiracetam [Keppra] 250 mg PO BID 7 Days #14 tab 11/29/23 levETIRAcetam [Keppra] 500 mg PO BID 30 Days #60 tab 11/29/23 New Medications: Spironolactone [Aldactone*] 50 mg PO DAILY 30 Days #60 tab carvediloL [Coreg*] 12.5 mg PO BID 6AM 6PM 30 Days #60 tab Sacubitril/Valsartan [Entresto 24 mg-26 mg Tablet] 1 tab PO BID 30 Days #60 tab Potassium Chloride [K-Dur] 20 meq PO BID 10 Days #20 tab levETIRAcetam [Keppra] 500 mg PO BID 30 Days #60 tab Levetiracetam [Keppra] 250 mg PO BID 7 Days #14 tab Furosemide [Lasix] 40 mg PO BID 10 Days #20 tab Physician Discharge Instructions: Renetta Dey was treated for collapsing at home. She was diuresed with lasix and started on new heart medications. She has been seen and treated by pulmonology, cardiology, and neurology. Please follow up with each specialist for continued monitoring and medication management. Stroke or seizure symptoms required another day for monitoring and testing. Will need to continue follow up with Dr. Peres for further monitoring and diagnosing. Please call his office this week to determine appointment times needed. MRI showing an old stroke ECHO shows improvement to heart function since admission and new medications started 1. Please call and schedule a follow-up appointment with your PCP in 3-5 days - Please follow-up with your PCP for medication refills/adjustments 2. Please call and schedule a follow-up appointment with Dr. Gonzalez in one week 3. Please Call and schedule a follow-up appointment with Dr. Rodriguez in one week 4. please call and schedule a follow-up appointment with Ja in two weeks, Call his office today to discuss the need for serial EEG -He plans to perform monitor the Keppra dosing and perform serial EEG in his office 5. Continue heart healthy diet 6. activity restrictions, fall precautions, work with physical therapy 7. Return to the ED if symptoms worsen New medication Aldactone 50 mg p.o. daily Furosemide 40 mg BID x 10 days Potassium 20 mg BID x 10 days Entresto 24-26 mg BID x 30 days Keppra 250mg twice daily x 7 days, then the dose will increase to Keppra 500 mg twice a day Home Health arranged: [facility]) P:[phone] F:[phone] Diet: AHA Activity: Fall precautions Followup: Ayaan Gonzalez MD [ACTIVE - CAN ADMIT] - Jemal Peres MD [ASSOCIATE-ACTIVE - CAN ADMIT] - 1-2 Weeks Yusef Zurita MD [Primary Care Provider] -
[2023-11-29 12:39] VITALS: BP 147/57; TEMP 98
[2023-11-29 12:53] VITALS: O2SAT 100
--- NOTE | 2023-12-05 08:10 | EEG ---
CHART: [id number] TEST ID#: [id number] DATE OF STUDY: 11/28/2023 THE EEG WAS RECORDED PORTABLE IN THE PATIENT'S ROOM ON A 17 CHANNEL MACHINE. ELECTRODES WERE APPLIED IN THE USUAL MANNER USING THE INTERNATIONAL 10-20 SYSTEM. THE WAKING BACKGROUND RHYTHM IN THIS RECORD CONSISTS OF FAIRLY WELL DEVELOPED AND FAIRLY WELL ORGANIZED WAVES OF 7.5 HZ., MAXIMAL IN THE POSTERIOR HEAD REGIONS WHICH ATTENUATE NORMALLY WITH EYE OPENING. MODERATE VOLTAGE 1.5-3 HZ ACTIVITY MIXED WITH LOW-VOLTAGE 18-22 HZ ACTIVITY IS EXPRESSED IN THE FRONTAL REGIONS. THERE ARE NO FOCAL OR LATERALIZING FEATURES. NO EPILEPTIFORM ACTIVITY APPEARS. SLEEP DID NOT OCCUR. HYPERVENTILATION WAS NOT PERFORMED. PHOTIC STIMULATION PRODUCED NO DRIVING BILATERALLY. IMPRESSION: THIS IS A MILDLY ABNORMAL ROUTINE AWAKE EEG DUE TO THE PRESENCE OF A MILDLY SLOW BACKGROUND AND POSTERIOR DOMINANT RHYTHM. THESE ARE NON-SPECIFIC FINDINGS INDICATING THE PRESENCE OF A MILD DIFFUSE DISTURBANCE IN CEREBRAL FUNCTION.
== END 2023-11-29 12:30 | disposition home health service (06) | DRG 286 ==
LOC: ER 14:02 → ERHOLD 17:55 → 4TH 19:58
PROVIDERS: ADMIT Internal Medicine; ATTEND Internal Medicine
PROC: 4A023N6 Measurement of Cardiac Sampling and Pressure, Right Heart, Percutaneous Approach (ICD-10-PCS; 2023-11-21)
PROC: B2111ZZ Fluoroscopy of Multiple Coronary Arteries using Low Osmolar Contrast (ICD-10-PCS; 2023-11-21)
PROC: 5A09457 Assistance with Respiratory Ventilation, 24-96 Consecutive Hours, Continuous Positive Airway Pressure (ICD-10-PCS; 2023-11-25)
PROC: 4A033R1 Measurement of Arterial Saturation, Peripheral, Percutaneous Approach (ICD-10-PCS; principal; 2023-11-27)
PROC: 0T9B70Z Drainage of Bladder with Drainage Device, Via Natural or Artificial Opening (ICD-10-PCS; 2023-11-27)
DX: I11.0 Hypertensive heart disease with heart failure (principal); I50.33 Acute on chronic diastolic (congestive) heart failure; S22.059A Unspecified fracture of T5-T6 vertebra, initial encounter for closed fracture; I48.20 Chronic atrial fibrillation, unspecified; Z68.41 Body mass index [BMI] 40.0-44.9, adult; E66.01 Morbid (severe) obesity due to excess calories; I27.22 Pulmonary hypertension due to left heart disease; E78.5 Hyperlipidemia, unspecified; E03.9 Hypothyroidism, unspecified; G89.29 Other chronic pain; E87.6 Hypokalemia; D64.9 Anemia, unspecified; E83.42 Hypomagnesemia; E11.9 Type 2 diabetes mellitus without complications; I25.10 Atherosclerotic heart disease of native coronary artery without angina pectoris; Z79.4 Long term (current) use of insulin; Z95.1 Presence of aortocoronary bypass graft; Z79.01 Long term (current) use of anticoagulants; Z79.82 Long term (current) use of aspirin; Z86.73 Personal history of transient ischemic attack (TIA), and cerebral infarction without residual deficits; Z79.890 Hormone replacement therapy; Z87.891 Personal history of nicotine dependence; Z79.899 Other long term (current) drug therapy; Z91.199 Patient's noncompliance with other medical treatment and regimen due to unspecified reason; R56.9 Unspecified convulsions; W01.0XXA Fall on same level from slipping, tripping and stumbling without subsequent striking against object, initial encounter; Y99.9 Unspecified external cause status; Y93.9 Activity, unspecified; Y92.9 Unspecified place or not applicable
CPT/HCPCS: 36415; 36600; 51702; 70450; 70551; 71250; 71275; 72125; 76937; 80048; 80053; 80076; 82140; 82805; 82947; 83605; 83735; 83880; 84100; 84132; 84439; 84443; 84484; 85025; 85379; 85610; 85730; 92610; 93005; 93306; 94640; 95816; 96374; 96375; 97116; 97161; 97530; 99152; 99153; 99285; C1893; J0360; J0461; J1644; J1650; J1940; J2001; J2250; J2310; J2405; J3010; J3475; J7040; J7605; Q9967

== ENCOUNTER 2023-12-24 17:03 | Inpatient (IN) | payer OTHER ==
--- NOTE | 2023-12-24 17:32 | RAD REPORT ---
EXAM DESCRIPTION: CT - Ct Stroke Brain Wo Cont - 12/24/2023 5:26 pm CLINICAL HISTORY: STROKE ALERT COMPARISON: Head Brain Wo Cont dated 12/01/2023; Ct Stroke Brain Wo Cont dated 11/27/2023 TECHNIQUE: All CT scans are performed using dose optimization technique as appropriate and may inclu de automated exposure control or mA/KV adjustment according to patient size. FINDINGS: No intracranial hemorrhage, hydrocephalus or extra-axial fluid collection.Moderate brain a trophy with gliosis in the left frontal region.2-3 cm area diminished density is seen in the left tem poral lobe. This is similar to prior study. The paranasal sinuses and mastoids are clear. The calvarium is intact. IMPRESSION: No acute intracranial abnormality. Areas of diminished density likely related to previo us infarcts. The findings were discussed with ER doctor Yary on 12/24/2023 at 5:14 p.m. by telephone.
[2023-12-24 17:51] LABS: Absolute Basophils 0.2 K/uL (0-0.5); Absolute Eosinophils 0.3 K/uL (0-0.5); Absolute Lymphocytes (CBC) 1.8 K/uL (0.7-4.9); Absolute Monocytes 0.7 K/uL (0.1-1.3); Absolute Neutrophil 8.3 K/uL (1.8-8.0); Basophils % 1.5 % (0-1.3); Eosinophils % 2.4 % (0-4.4); Hematocrit 31.2 % (36.0-45.0); Hemoglobin 9.6 g/dL (12.0-15.0); Lymphocytes % 15.7 % (15.3-44.8); MCH 24.2 pg (27.0-35.0); MCHC 30.8 g/dL (32.0-36.0); MCV 78.8 fL (80-100); Monocytes % 6.2 % (3.3-12.3); Neutrophils % 74.2 % (41.7-73.7); Platelets 230 thou/uL (152-406); RBC Red Blood Cell Count 3.96 M/uL (3.86-4.86); Red Cell Distribution Width 22.8 % (12.1-15.2)
[2023-12-24 17:55] LABS: PTT, Activated Partial Thromb 36.4 SECONDS (24.3-36.9); Protime INR 1.72
--- NOTE | 2023-12-24 17:57 | RAD REPORT ---
EXAM DESCRIPTION: RADChest Single View12/24/2023 5:46 pm CLINICAL HISTORY: SOB COMPARISON: Chest Single View dated 12/01/2023; Chest Single View dated 01/13/2023; Chest Pa And Lat (2 Views) dated 06/19/2022; Chest Single View dated 05/22/2022 TECHNIQUE: Portable AP view of the chest. FINDINGS: The lungs are clear. No pneumothorax or effusion. The cardiomediastinal contours are unre markable. Sequelae of median sternotomy again seen. IMPRESSION: No acute cardiopulmonary process.
[2023-12-24 18:06] LABS: Anion Gap 14.5 mEq/L (5.0-15.0); Potassium 3.5 mEq/L (3.5-5.1); Troponin High Sensitivity 40.3 pg/mL (<58.9)
--- NOTE | 2023-12-24 18:37 | EDPHYS ---
Physician Documentation [facility] Name: Renetta Dey Age: 73 yrs Sex: Female : 1950 Arrival Date: 12/24/2023 Time: 17:03 Bed 4 Private MD: ED Physician Francine Anderson HPI: 12/23 18:37 This 73 yrs old Female presents to ER via EMS with complaints of altered gb1 mental status. Historical: - Allergies: 17:48 No Known Allergies; dd2 - Home Meds: 17:48 Eliquis 5 mg Oral tablet 1 tab 2 times per day [Active]; dd2 - PMHx: 17:48 Back pain; CHF; CVA; Diabetes - IDDM; ESRD; Hypertension; dd2 - PSHx: 17:48 Unable to Obtain; dd2 - Immunization history:: Adult Immunizations unknown. - Infectious Disease History:: Denies. - Social history:: Smoking status: unknown. Exam: 18:37 Head/Face: Normocephalic, atraumatic. Eyes: Pupils equal round and reactive to light, gb1 extra-ocular motions intact. Lids and lashes normal. Conjunctiva and sclera are non-icteric and not injected. Cornea within normal limits. Periorbital areas with no swelling, redness, or edema. ENT: Nares patent. No nasal discharge, no septal abnormalities noted. Tympanic membranes are normal and external auditory canals are clear. Oropharynx with no redness, swelling, or masses, exudates, or evidence of obstruction, uvula midline. Mucous membranes moist. Neck: Trachea midline, no thyromegaly or masses palpated, and no cervical lymphadenopathy. Supple, full range of motion without nuchal rigidity, or vertebral point tenderness. No Meningismus. Chest/axilla: Normal chest wall appearance and motion. Nontender with no deformity. No lesions are appreciated. Cardiovascular: Irregular rate and rhythm. No gallops, murmurs, or rubs. Normal PMI, no JVD. No pulse deficits. Respiratory: Lungs have equal breath sounds bilaterally, clear to auscultation and percussion. No rales, rhonchi or wheezes noted. No increased work of breathing, no retractions or nasal flaring. Abdomen/GI: Soft, non-tender, with normal bowel sounds. No distension or tympany. No guarding or rebound. No evidence of tenderness throughout. Back: No spinal tenderness. No costovertebral tenderness. Full range of motion. Skin: Warm, dry with normal turgor. Normal color with no rashes, no lesions, and no evidence of cellulitis. MS/ Extremity: Pulses equal, no cyanosis. Neurovascular intact. Full, normal range of motion. Neuro: Awake and alert, , oriented to perso only, not place, time, or situation. See NIH stroke scale for more details in the neurological examination Vital Signs: 17:00 BP 138 / 73; Pulse 87; Resp 16; Temp 97; Pulse Ox 100% ; dd2 17:30 BP 131 / 87; Pulse 87; Resp 16; Pulse Ox 97% ; dd2 17:51 BP 127 / 85; Pulse 82; Resp 16; Temp 98.1; Pulse Ox 100% on R/A; dd2 18:10 BP 136 / 62; Pulse 84; Resp 16; Pulse Ox 99% ; dd2 19:06 BP 134 / 69; Pulse 87; Resp 16; Temp 98.4; Pulse Ox 96% ; go2 NIH Stroke Scale Scores: 17:00 NIHSS Score: 10 dd2 MDM: 17:12 Patient medically screened. gb1 18:37 Differential Diagnosis altered mental status, sepsis. Data reviewed: vital signs, gb1 nurses notes, senior care records, old medical records, lab test result(s), EKG, radiologic studies, CT scan. Consideration of Admission/Observation Patient was admitted/placed on observation. Independent interpretation of the following test(s) in the Emergency Department EKG: See my EKG interpretation above hospital monitor: NIH stroke scale is 22.. Discussion of test interpretation with radiology: I had a discussion with radiology regarding a test interpretation. CT noncontrast brain stat stroke study was discussed with Dr. Pringle and relayed to me immediately. Historians other than the Patient: Spouse/Significant Other: Patient's at the bedside. ED course: 73-year-old male female from [facility] here with altered mental status with last known well time not known. Patient having signs and symptoms of stroke like confusion, dysarthria and aphasia. Patient has a history of stroke like event over the last few months. She is currently taking Eliquis. Patient's denies any trauma or falls. I reviewed the patient's CT scan as compared to similar CT brain in November 2023 which shows a concern for subacute ischemic stroke. Doubt large vessel occlusion. Patient at this time is not a candidate for TNKase and I discussed the case with Dr. Peres at length. Patient will be admitted to the inpatient telemetry unit under Dr. Rivera's service. Relative contraindication is Eliquis as well as total contraindication of TNKase due to last known well time unknown.. 18:56 ED course: CT angiogram report read to me by the reading radiologist at 1855 with mild gb1 basilar artery stenosis. I pass his information on to the admitting hospitalist Dr. Rivera via text message. At this time there is no indication for emergent thrombectomy.. 12/23 17:13 Order name: Basic Metabolic Panel; Complete Time: 18:16 gb1 12/23 17:13 Order name: CBC with Diff; Complete Time: 19:08 gb1 12/23 17:13 Order name: High Sensitivity Troponin; Complete Time: 18:16 gb1 12/23 17:13 Order name: Protime (+inr); Complete Time: 18:01 gb1 12/23 17:13 Order name: Ptt, Activated; Complete Time: 18:01 gb1 12/23 17:13 Order name: UAM gb 12/23 17:46 Order name: CREATININE WHOLE BLOOD EDMS 12/23 17:48 Order name: Glucose, Ancillary Testing; Complete Time: 18:01 EDMS 12/23 17:59 Order name: CBC Smear Scan; Complete Time: 19:08 EDMS 12/23 18:56 Order name: Urinalysis w/ reflexes EDMS 12/23 18:56 Order name: CBC with Automated Diff EDMS 12/23 18:56 Order name: CBC with Automated Diff EDMS 12/23 18:56 Order name: Comprehensive Metabolic Panel EDMS 12/23 18:56 Order name: Comprehensive Metabolic Panel EDMS 12/23 17:13 Order name: CT Neck Angio; Complete Time: 19:08 gb1 12/23 17:13 Order name: CT Stroke Brain w/o Contrast; Complete Time: 17:38 gb1 12/23 17:13 Order name: Stroke CXR 1 View; Complete Time: 18:01 gb1 12/23 17:20 Order name: Head angio; Complete Time: 19:08 EDMS 12/23 18:56 Order name: CONS Physician Consult EDAL 12/23 17:13 Order name: Accucheck; Complete Time: 17:39 gb1 12/23 17:13 Order name: Cardiac monitoring; Complete Time: 17:39 gb1 12/23 17:13 Order name: EKG - Nurse/Tech; Complete Time: 18:00 gb1 12/23 17:13 Order name: IV Saline Lock; Complete Time: 17:42 gb1 12/23 17:13 Order name: Labs collected and sent; Complete Time: 17:42 gb1 12/23 17:13 Order name: NPO; Complete Time: 17:39 gb1 12/23 17:13 Order name: O2 Per Protocol; Complete Time: 17:39 gb1 12/23 17:13 Order name: O2 Sat Monitoring; Complete Time: 17:39 gb1 Administered Medications: No medications were administered Disposition Summary: 12/24/23 18:36 Hospitalization Ordered Notes: Hospitalization Status: Inpatient Admission gb1 Provider: Chino Rivera Location: Telemetry/[facility] (Inpatient) gb1 Condition: Fair gb1 Problem: new gb1 Symptoms: have worsened gb1 Bed/Room Type: Standard [facility] Room Assignment: 209(12/24/23 19:03) [facility] Diagnosis - Acute cerebrovascular insufficiency gb1 - Paroxysmal atrial fibrillation gb1 - Altered mental status, unspecified gb1 Forms: - Medication Reconciliation Form gb1 - SBAR form gb1 - Leadership Thank You Letter gb1 Critical care time excluding procedures: 18:42 Critical care time: Bedside Care: 75 minutes, Consultation: 25 minutes, Family gb1 Intervention: 40 minutes. Total time: 140 minutes NIH Stroke Scale - NIH Stroke Score Date: 12/24/2023 Time: 17:00 Total Score = 10 10. Dysarthria (speech clarity - read or repeat words) - 2(Severe) 11. Extinction and Inattention (visual/tactile/auditory/spatial/personal) - 1(Present) 1a. Level of Consciousness (LOC) - 0(Alert) 1b. Level of Consciousness (LOC) (Month \T\ Age) - 2(Neither) 1c. LOC Commands (Open \T\ Closes Eyes/Compliance Representative) - 2(Neither) 2. Best Gaze (Lateral Gaze Paresis) - 0(Normal) 3. Visual Field Loss - 0(No visual loss) 4. Facial Palsy - 0(Normal) 5a. Left Arm: Motor (10-second hold) - UN(Amputation, joint fusion) - Notes: Does not follow commands 5b. Right Arm: Motor (10-second hold) - UN(Amputation, joint fusion) - Notes: Does not follow commands 6a. Left Leg: Motor (5-second hold - always test supine) - UN(Amputation, joint fusion) - Notes: Does not follow commands 6b. Right Leg: Motor (5-second hold - always test supine) - UN(Amputation, joint fusion) - Notes: Does not follow commands 7. Limb Ataxia (finger/nose \T\ heel/wade - test with eyes open) - Notes: Does not follow commands 8. Sensory Loss (pinprick arms/legs/face) - 0(Normal) 9. Best Language: Aphasia (description/naming/reading) - 3(Mute, global aphasia) Initials: dd2 Signatures: Dispatcher [employer] EDMS Francine Anderson MD MD gb1 Ying Price [facility] GEOVANNI NEGRO RN RN dd2 Corrections: (The following items were deleted from the chart) 17:14 17:14 CT-STROKE BRAIN W/O CONTRAST+CT.RAD.BRZ ordered. EDMS EDMS 17:14 17:14 Chest Single View+RAD.RAD.BRZ ordered. EDMS EDMS 17:14 17:14 Urinalysis W/Microscopic+U.LAB.BRZ ordered. EDMS EDMS 17:48 17:14 PROTIME (+INR)+COAG.LAB.BRZ ordered. EDMS EDMS 19:03 18:[address]
--- NOTE | 2023-12-24 18:37 | ER ---
Nurse's Notes [facility] Name: Renetta Dey Age: 73 yrs Sex: Female : 1950 Arrival Date: 12/24/2023 Time: 17:03 Bed 4 Private MD: Diagnosis: Acute cerebrovascular insufficiency;Paroxysmal atrial fibrillation;Altered mental status, unspecified Presentation: 12/23 17:00 Chief complaint: EMS states[facility], last dd2 known well was approximately 1 hour ago. Patient is usually talking but now is not talking and not following commands. Coronavirus screen: At this time, the client does not indicate any symptoms associated with coronavirus-19. Ebola Screen: No symptoms or risks identified at this time. Initial Sepsis Screen:. Initial Sepsis Screen: Does the patient meet any 2 criteria? No. Patient's initial sepsis screen is negative. Does the patient have a suspected source of infection? No. Patient's initial sepsis screen is negative. Risk Assessment: Do you want to hurt yourself or someone else? Patient reports no desire to harm self or others. Onset of symptoms was December 24, 2023 at 16:00. Care prior to arrival: Glucose check: 138. Transition of care: patient was received from another setting of care (long-term care facility). 17:00 Method Of Arrival: EMS: [facility] dd2 17:00 Acuity: ELEAZAR 2 dd2 Triage Assessment: 17:48 General: Appears ill, Behavior is anxious. Pain: Unable to use pain scale. Does not dd2 appear to understand pain scale. Historical: - Allergies: 17:48 No Known Allergies; dd2 - Home Meds: 17:48 Eliquis 5 mg Oral tablet 1 tab 2 times per day [Active]; dd2 - PMHx: 17:48 Back pain; CHF; CVA; Diabetes - IDDM; ESRD; Hypertension; dd2 - PSHx: 17:48 Unable to Obtain; dd2 - Immunization history:: Adult Immunizations unknown. - Infectious Disease History:: Denies. - Social history:: Smoking status: unknown. Screenin:00 [facility] ED Fall Risk Assessment (Adult) History of falling in the last 3 months, dd2 including since admission No falls in past 3 months (0 pts) Confusion or Disorientation Yes (5 pts) Intoxicated or Sedated No (0 pts) Impaired Gait No (0 pts) Mobility Assist Device Used No (0 pt) Altered Elimination No (0 pt) Score/Fall Risk Level 3 or more points = High Risk Oriented to surroundings, Maintained a safe environment, Educated pt \T\ family on fall prevention, incl call for assistance when getting out of bed, Assessed \T\ reinforced patient's understanding of fall precautions, Provided non-skid footwear, Hourly rounding (assess needs \T\ fall precautionary measures) done, Used ambulatory aids as needed (educated on \T\ assisted with), Used gait belt as appropriate Implemented a Fall Risk Plan of Care, Apply high fall risk patient identification: yellow non skid footwear/ fall signage, Remained w/in arm's length of patient and in sight while toileting, Offered frequent toileting (1:1 observation), Remained with patient while ambulating, Utilized family, sitter, or virtual percussion instrument repairer as indicated. Abuse screen: Denies threats or abuse. Denies injuries from another. Nutritional screening: No deficits noted. Tuberculosis screening: No symptoms or risk factors identified. 17:05 VAN Screening: Arm Drift: Patient shows no arm weakness. Patient is VAN negative. dd2 Neglect: No neglect noted. 17:30 [place] Swallow Protocol Exclusion Criteria: NPO for medical/surgical reason by provider dd2 order Yes. Assessment: 17:45 Reassessment: patients at bedside upon our return from CT. He states patient dd2 has been doing this for 6 months off and on. Not really sure of last known well time. 17:51 Neuro: Level of Consciousness is awake, Oriented to nonverbal. Pupils are PERRLA, Pupil dd2 Size: 2.5mm. Cardiovascular: No deficits noted. Respiratory: No deficits noted. GI: No deficits noted. : No deficits noted. EENT: No deficits noted. Derm: No deficits noted. Musculoskeletal: Range of motion: intact in all extremities. 18:31 Reassessment: Unable to perform swallow study due to pt inability to follow commands. dd2 Vital Signs: 17:00 BP 138 / 73; Pulse 87; Resp 16; Temp 97; Pulse Ox 100% ; dd2 17:30 BP 131 / 87; Pulse 87; Resp 16; Pulse Ox 97% ; dd2 17:51 BP 127 / 85; Pulse 82; Resp 16; Temp 98.1; Pulse Ox 100% on R/A; dd2 18:10 BP 136 / 62; Pulse 84; Resp 16; Pulse Ox 99% ; dd2 19:06 BP 134 / 69; Pulse 87; Resp 16; Temp 98.4; Pulse Ox 96% ; go2 NIH Stroke Scale Scores: 17:00 NIHSS Score: 10 dd2 ED Course: 17:10 Patient arrived in ED. sb4 17:12 Francine Anderson MD is Attending Physician. gb1 17:15 Patient has correct armband on for positive identification. Bed in low position. Call dd2 light in reach. Side rails up X2. Provided Education on: labs/tests. Client placed on continuous cardiac and pulse oximetry monitoring. NIBP monitoring applied. marketing content manager on. Door closed. Noise minimized. Lights dimmed. Warm blanket given. Pillow given. 17:28 CT Stroke Brain w/o Contrast In Process Unspecified. EDMS 17:42 Basic Metabolic Panel Sent. dd2 17:42 CBC with Diff Sent. dd2 17:42 High Sensitivity Troponin Sent. dd2 17:42 Protime (+inr) Sent. dd2 17:42 Ptt, Activated Sent. dd2 17:44 Inserted saline lock: 20 gauge in right forearm, using aseptic technique. go2 17:48 Stroke CXR 1 View In Process Unspecified. EDMS 17:48 Triage completed. dd2 17:48 Arm band placed on right wrist. Patient placed in an exam room, on a stretcher, on dd2 diagnostic cardiac sonographer, on pulse oximetry, Patient notified of wait time. 17:50 CREATININE WHOLE BLOOD Sent. dd2 17:59 GEOVANNI NEGRO, RN is Primary Nurse. dd2 18:18 EKG done, by ED staff, reviewed by Francine Anderson MD. dd2 18:25 No provider procedures requiring assistance completed. dd2 18:30 CT Neck Angio In Process Unspecified. EDMS 18:30 Head angio In Process Unspecified. EDMS 18:34 Francine Anderson MD is Hospitalizing Provider. gb1 18:34 Chino Rivera MD is Hospitalizing Provider. gb1 18:[address] go2 19:14 Appears to be sleeping. go2 20:08 Patient admitted, IV remains in place. go2 20:10 CREATININE WHOLE BLOOD Sent. go2 20:11 UAM Sent. go2 Administered Medications: No medications were administered Medication: 17:51 VIS not applicable for this client. dd2 Outcome: 18:36 Decision to Hospitalize by Provider. gb1 20:08 Admitted to Med/surg accompanied by tech, family with patient, via wheelchair, go2 20:08 Condition: stable 20:08 Instructed on the need for admit, 20:08 Patient left the ED. go2 NIH Stroke Scale - NIH Stroke Score Date: 12/24/2023 Time: 17:00 Total Score = 10 10. Dysarthria (speech clarity - read or repeat words) - 2(Severe) 11. Extinction and Inattention (visual/tactile/auditory/spatial/personal) - 1(Present) 1a. Level of Consciousness (LOC) - 0(Alert) 1b. Level of Consciousness (LOC) (Month \T\ Age) - 2(Neither) 1c. LOC Commands (Open \T\ Closes Eyes/Electrical Assembly Technician) - 2(Neither) 2. Best Gaze (Lateral Gaze Paresis) - 0(Normal) 3. Visual Field Loss - 0(No visual loss) 4. Facial Palsy - 0(Normal) 5a. Left Arm: Motor (10-second hold) - UN(Amputation, joint fusion) - Notes: Does not follow commands 5b. Right Arm: Motor (10-second hold) - UN(Amputation, joint fusion) - Notes: Does not follow commands 6a. Left Leg: Motor (5-second hold - always test supine) - UN(Amputation, joint fusion) - Notes: Does not follow commands 6b. Right Leg: Motor (5-second hold - always test supine) - UN(Amputation, joint fusion) - Notes: Does not follow commands 7. Limb Ataxia (finger/nose \T\ heel/wade - test with eyes open) - Notes: Does not follow commands 8. Sensory Loss (pinprick arms/legs/face) - 0(Normal) 9. Best Language: Aphasia (description/naming/reading) - 3(Mute, global aphasia) Initials: dd2 Signatures: Dispatcher [employer] EDMS Ronel Celis, RN RN kb3 Julia Urbano, PAMiguel A PAMiguel A [id number] Francine Anderson MD MD gb1 GEOVANNI NEGRO RN RN dd2 Sherrell Tobin RN RN go2 Corrections: (The following items were deleted from the chart) 18:21 18:14 NIHSS Score: 10 kb3 dd2 18:28 17:51 BP 127 / 85; Pulse 8bpm; Resp 6bpm; Pulse Ox 100% RA; Temp 16F; dd2 dd2 18:31 17:30 [place] Swallow Protocol Exclusion Criteria: NPO for medical/surgical reason dd2 by provider order Yes dd2
[2023-12-24] MEDS ORDERED: ONDANSETRON 4 MG/2 ML VIAL IV PRN (18:51)
--- NOTE | 2023-12-24 18:51 | P.HP ---
Certification for Inpatient Patient admitted to: Inpatient With expected LOS: >2 Midnights Practitioner: I am a practitioner with admitting privileges, knowledge of patient current condition, hospital course, and medical plan of care. Services: Services provided to patient in accordance with Admission requirements found in Title 42 Section 412.3 of the Code of Federal Regulations Patient History Date of Service: 12/24/23 Reason for admission: CVA History of Present Illness: 73 yo female with past history of chronic diastolic congestive heart failure, paroxysmal atrial fibrillation status post ablation, chronic pain, hypertension, hyperlipidemia, hypothyroidism, CVA with residual weakness, seizure disorder who has been recently been admitted to the hospital in [place] for seizure versus CVA and has been discharged to the rehab. Patient was assessed by the nursing staff and was sent over to the ER for abnormal behavior and generalized weakness. Patient is a poor historian hence most of the history is obtained from the chart review and also talking to the family member at the bedside. Denies any fall. No fever or chills. No nausea vomiting or diarrhea. Patient was assessed in the ER and was admitted for subacute CVA and further management and neurology consult . Last known normal was more than 12 hours and is out of TNK window and also patient is taking blood thinners for A-fib Allergies No Known Allergies Allergy (Verified 06/19/22 13:21) Home medications list reviewed: Yes Home Medications: Amlodipine [Norvasc*] 10 mg PO DAILY 04/19/22 Apixaban [Eliquis] 5 mg PO BID 04/19/22 Duloxetine [Cymbalta *] 20 mg PO BEDTIME 04/19/22 Gabapentin [Neurontin] 900 mg PO BEDTIME PRN PRN 04/19/22 Levothyroxine [Synthroid*] 2 tab PO DAILY 04/19/22 Melatonin 10 mg PO BEDTIME PRN 04/19/22 Rosuvastatin Calcium [Crestor] 20 mg PO BEDTIME 04/19/22 Insulin 70/30 NPH/Reg Human [Novolin 70/30*] 30 unit SQ DAILY WITH BREAKFAST #10 ml 05/02/22 Aspirin 81 mg PO DAILY 05/13/22 Cyanocobalamin (Vitamin B-12) [Vitamin B12] 5,000 mcg PO DAILY 05/13/22 Mv-Mn/Iron/Folic Acid/Herb 190 [Vitamin D3 Complete Caplet] 1 tab PO DAILY 05/13/22 Apixaban [Eliquis] 5 mg PO BID 11/27/23 Furosemide [Lasix] 40 mg PO BID 10 Days #20 tab 11/27/23 Potassium Chloride [K-Dur] 20 meq PO BID 10 Days #20 tab 11/27/23 Sacubitril/Valsartan [Entresto 24 mg-26 mg Tablet] 1 tab PO BID 30 Days #60 tab 11/27/23 Spironolactone [Aldactone*] 50 mg PO DAILY 30 Days #60 tab 11/27/23 carvediloL [Coreg*] 12.5 mg PO BID 6AM 6PM 30 Days #60 tab 11/27/23 Levetiracetam [Keppra] 250 mg PO BID 7 Days #14 tab 11/29/23 levETIRAcetam [Keppra] 500 mg PO BID 30 Days #60 tab 11/29/23 - Past Medical/Surgical History Diabetic: Yes Past Medical History: Reviewed- Non-Contributory -: Diabetesinsulin-dependent -: Hypertension -: Atrial fibrillationon chronic anticoagulation -: CAD with CABG -: CHFdiastolic -: Kidney failure -: CVAexpressive aphasia/right-sided weakness -: Sleep apnea patient is on CPAP Past Surgical History: Reviewed- Non-Contributory -: triple bypass 2002 -: carotid artery sx 2002 -: GB surgery 2002 -: Fempop sx 2006 -: Atrial ablation -: Carotid endarterectomy Psychosocial/ Personal History: Patient lives at home with her . - Family History Mother -: Cancer - Social History Smoking Status: Never smoker Alcohol use: No CD- Drugs: No Caffeine use: Yes Review of Systems is unable to be obtained Physical Examination - Vital Signs Temperature: 97.2 F Blood Pressure: 130/86 Pulse: 82 Respirations: 18 Pulse Ox (%): 94 - Physical Exam General: Alert, Oriented x2, Mild distress HEENT: Atraumatic, Normocephalic Neck: Supple, 2+ carotid pulse no bruit Respiratory: Clear to auscultation bilaterally, Normal air movement Cardiovascular: Regular rate/rhythm, Normal S1 S2 Capillary refill: <2 Seconds Gastrointestinal: Soft and benign, Non-distended, W/out hepatosplenomegaly Musculoskeletal: No clubbing, No swelling Integumentary: No rashes, No breakdown Neurological: Abnormal speech, Abnormal strength, Abnormal cranial nerve function, Abnormal reflexes Lymphatics: No axilla or inguinal lymphadenopathy - Studies Laboratory Data (last 24 hrs) 12/24/23 12/24/23 12/24/23 17:33 17:33 17:33 WBC 11.20 H Hgb 9.6 L Hct 31.2 L Plt Count 230 PT 19.0 H INR 1.72 APTT 36.4 Sodium 137 Potassium 3.5 BUN 31 H Creatinine 1.61 H Glucose 158 H 12/24/23 17:14 WBC Hgb Hct Plt Count PT Cancelled INR Cancelled APTT Sodium Potassium BUN Creatinine Glucose Assessment and Plan - Plan CVA/TIA focal weakness Numbness of left-sided body Started on aspirin and statin Continue Eliquis CT CTA findings noted MRI brain ordered Monitor neuro vital signs Monitor under telemetry Neurology consult Acute encephalopathy possibly metabolic versus ischemic With the findings noted no acute changes Monitor renal parameters and electrolytes History of A-fib status post ablation. Cardiac monitoring Chronic diastolic congestive heart failure Atrial fibrillation on chronic anticoagulation therapy S/P ablation History of CAD with previous CABG Severe pulmonary hypertension She had an ablation for A-fib in May Right heart catheterization by cardiology reported severe pulmonary hypertension. Last Echo showed normal ejection fraction with diastolic dysfunction RVSP of 70 Hypertension Hyperlipidemia Hypothyroidism Head CT negative Continue home medications. CAD Monitor closely on telemetry Continue home medications GI/DVT prophylaxis Advanced directive full code Discharge Plan: Long Term Plan to discharge in: 48 Hours - Advance Directives Does patient have a Living Will: Yes Does patient have a Durable POA for Healthcare: No - Code Status/Comfort Care Code Status: Full Code Time Spent Managing Pts Care (In Minutes): 48
[2023-12-24 18:52] LABS: Anisocytosis 2+; Blood Morphology Comment NOTED (NOT SEEN); Hypochromasia 1+; Platelet Estimate ADEQ; White Blood Cell Scan OK (OK)
--- NOTE | 2023-12-24 18:53 | RAD REPORT ---
EXAM DESCRIPTION: CT - Neck Angio - 12/24/2023 6:27 pm CLINICAL HISTORY: SWELLING COMPARISON: Neck Angio dated 04/04/2022; Ct Stroke Brain Wo Cont dated 12/24/2023; Chest Single View dated 12/24/2023; Head angio dated 12/24/2023 TECHNIQUE: Axial CT angiography images of the neck was performed with multiplanar and maximum intens ity projection reconstructions. Images performed following intravenous administration of iodinated c ontrast. All CT scans are performed using dose optimization technique as appropriate and may include automated exposure control or mA/KV adjustment according to patient size. Quantification of carotid stenosis, if any, is performed according to NASCET criteria. FINDINGS: A left aortic arch is identified with normal three vessel configuration of the great vesse ls. No significant flow abnormality is seen of the common carotid bilaterally. No significant stenosis is identified involving the cervical segments of both internal carotid arteri es. Normal flow is seen within both vertebral arteries. IMPRESSION: No significant flow abnormality of the neck vessels is identified. CAROTID STENOSIS REFERENCE USING NASCET CRITERIA: % ICA stenosis = (1 - narrowest ICA diameter/diameter of distal cervical ICA) x 100. Mild - <50% stenosis. Moderate - 50-69% stenosis. Severe - 70-94% stenosis. Near occlusion - 95-99% stenosis. Occluded - 100% stenosis.
--- NOTE | 2023-12-24 19:00 | RAD REPORT ---
EXAM DESCRIPTION: CT - Head angio - 12/24/2023 6:28 pm CLINICAL HISTORY: R/O Stroke, AMS COMPARISON: Ct Stroke Brain Wo Cont dated 12/24/2023; Head Brain Wo Cont dated 12/01/2023; Neck Angio dated 12/24/2023 TECHNIQUE: Axial CT angiography images of the head was performed with multiplanar and maximum intens ity projection reconstructions. Images performed following intravenous administration of iodinated c ontrast. All CT scans are performed using dose optimization technique as appropriate and may include automated exposure control or mA/KV adjustment according to patient size. FINDINGS: No evidence of large vessel occlusion. 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 No evidence of aneurysm or dissection flap is detect ed. No other flow-limiting stenosis or vascular malformation identified. Antegrade flow is seen in the vertebral arteries. The vertebral arteries are codominant. The visualized dural venous sinuses are grossly patent. 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 No other evidence of large vessel occlusion or flow-limiting stenosis. The findings were communicated to Francine Monica on 12/24/2023 at 18:56 hours.
[2023-12-24 21:25] VITALS: BMI 28.3
[2023-12-24] MEDS ORDERED: GABAPENTIN 300 MG CAP PO PRN (22:28)
[2023-12-24] MEDS ORDERED: D50W 25 GM/50 ML SYRINGE IV PRN (22:28)
[2023-12-24] MEDS ORDERED: GLUCAGON 1 MG/VIAL IM PRN (22:28)
[2023-12-24] MEDS ORDERED: D10W 125 ML IV PRN (22:35)
[2023-12-25] MEDS: carvediloL 6.25 MG TAB PO SCH (05:18)
--- NOTE | 2023-12-25 07:02 | P.PN ---
Date of Service: 12/25/23 Subjective No acute distress, resting in bed, Review of Systems is unable to be obtained due to confusion, Physical Examination - Vital Signs Reviewed - Physical Exam General: Alert, Oriented x2, confused HEENT: Atraumatic, Normocephalic Neck: Supple, 2+ carotid pulse no bruit Respiratory: Clear to auscultation bilaterally, Normal air movement Cardiovascular: Regular rate/rhythm, Normal S1 S2 Capillary refill: <2 Seconds Gastrointestinal: Soft and benign, Non-distended, Musculoskeletal: No clubbing, No swelling Integumentary: No rashes, No breakdown Neurological: Abnormal speech, Abnormal strength, Abnormal cranial nerve function, Lymphatics: No axilla or inguinal lymphadenopathy Assessment and Plan - Plan CVA/TIA focal weakness Numbness of left-sided body Started on aspirin and statin Continue Eliquis CT CTA findings noted MRI brain ordered Monitor neuro vital signs Monitor under telemetry Neurology consult 12/25/23 MRI IMPRESSION: Small foci of diffusion restriction along the centrum semiovale bilaterally, frontoparietal subcortical white matter more so on the right, and the splenium of corpus callosum bilaterally, suggesting late acute to subacute ischemia. Other etiologies may include global hypoperfusion, given this pattern which is samreen to watershed ischemia, versus embolic infarcts. MRA of the brain Rapid response called to altered mental status, suspected TIA versus CVA, vital signs stable Acute encephalopathy possibly metabolic versus ischemic With the findings noted no acute changes Monitor renal parameters and electrolytes History of A-fib status post ablation. Cardiac monitoring On Eliquis Chronic diastolic congestive heart failure Atrial fibrillation on chronic anticoagulation therapy S/P ablation History of CAD with previous CABG Severe pulmonary hypertension She had an ablation for A-fib in May Right heart catheterization by cardiology reported severe pulmonary hypertension. Last Echo showed normal ejection fraction with diastolic dysfunction RVSP of 70 Hypertension Hyperlipidemia Hypothyroidism Head CT negative Continue home medications. CAD Monitor closely on telemetry Continue home medications GI/DVT prophylaxis Advanced directive full code Discharge Plan: Long Term Plan to discharge in: 48 Hours - Advance Directives Does patient have a Living Will: Yes Does patient have a Durable POA for Healthcare: No - Code Status/Comfort Care Code Status: Full Code Time Spent Managing Pts Care (In Minutes): 35 <Obdulia Vitale - Last Filed: 12/25/23 18:38> Patient was seen and examined. Events of the last 24 hours have been noted. Spoke with with KALLI regarding patient's clinical picture after evaluating and examining the patient independently. I performed a substantial part of the MDM during this patient's care today. I personally made or approved the documented management plan and acknowledge its risk of complications. I agree with the findings and documentation provided in the KALLI's notes. [facility]. Patient looks to have some watershed areas that are subacute. However, in light of the patient having active bleeding we will hold Eliquis. Monitor H&H. Patient may need outpatient Watchman procedure. Patient long-term prognosis remains very poor. Continue with physical therapy at this time. <Vishal Mosley - Last Filed: 12/31/23 02:39>
[2023-12-25] MEDS: INSULIN 70/30 100 UNITS/ML SQ SCH (08:00)
[2023-12-25] MEDS: HOME MED 1 EA UNK (Cyanocobalamin (Vitamin B-12) [Vitamin B12] 5,000 MCG Tab.Rapdis) PO SCH (09:00)
[2023-12-25] MEDS: MV MN PO SCH (09:00)
[2023-12-25] MEDS: HERB PO SCH (09:00)
[2023-12-25] MEDS: IRON PO SCH (09:00)
[2023-12-25] MEDS: FOLIC ACID PO SCH (09:00)
[2023-12-25] MEDS: APIXABAN 5 MG TABLET PO SCH (09:06)
[2023-12-25] MEDS: AMLODIPINE 10 MG TAB PO SCH (09:06)
[2023-12-25] MEDS: LEVOTHYROXINE SOD 0.125 MG TAB PO SCH (09:06)
[2023-12-25] MEDS: SACUBITRIL/VALSARTAN 24/26 MG TAB PO SCH (09:06)
[2023-12-25] MEDS: ASPIRIN 81 MG CHEWABLE TABLET PO SCH (09:07)
[2023-12-25] MEDS: levETIRAcetam 500 MG TAB PO SCH (09:07)
[2023-12-25] MEDS: FUROSEMIDE 40 MG TABLET PO SCH (09:07)
[2023-12-25 09:14] LABS: Absolute Basophils 0.2 K/uL (0-0.5); Absolute Eosinophils 0.3 K/uL (0-0.5); Absolute Lymphocytes (CBC) 1.2 K/uL (0.7-4.9); Absolute Monocytes 0.5 K/uL (0.1-1.3); Absolute Neutrophil 3.5 K/uL (1.8-8.0); Basophils % 2.7 % (0-1.3); Eosinophils % 4.7 % (0-4.4); Hematocrit 26.6 % (36.0-45.0); Hemoglobin 8.2 g/dL (12.0-15.0); Lymphocytes % 20.8 % (15.3-44.8); MCH 24.2 pg (27.0-35.0); MCHC 30.9 g/dL (32.0-36.0); MCV 78.3 fL (80-100); Monocytes % 9.4 % (3.3-12.3); Neutrophils % 62.4 % (41.7-73.7); Platelets 190 thou/uL (152-406); RBC Red Blood Cell Count 3.39 M/uL (3.86-4.86); Red Cell Distribution Width 22.6 % (12.1-15.2)
[2023-12-25 09:16] LABS: Albumin 2.9 g/dL (3.4-5.0); Bilirubin Total 1.7 mg/dL (0.2-1.0); Globulin 2.9 g/dL (2.3-3.5); Protein, Total 5.8 g/dL (6.4-8.2)
[2023-12-25 09:42] LABS: Platelet Estimate ADEQ; White Blood Cell Scan OK (OK)
[2023-12-25 09:43] LABS: Anisocytosis 2+; Blood Morphology Comment NOTED (NOT SEEN); Hypochromasia 1+
[2023-12-25] MEDS: POTASSIUM 25 MEQ EFFERV TAB PO ONE (11:31)
[2023-12-25] MEDS: DEXTROSE 10%-WATER 500 ML IV ONE (13:39)
[2023-12-25 13:48] LABS: Absolute Basophils 0.2 K/uL (0-0.5); Absolute Eosinophils 0.3 K/uL (0-0.5); Absolute Lymphocytes (CBC) 1.4 K/uL (0.7-4.9); Absolute Monocytes 0.6 K/uL (0.1-1.3); Absolute Neutrophil 4.4 K/uL (1.8-8.0); Basophils % 2.3 % (0-1.3); Eosinophils % 4.9 % (0-4.4); Hematocrit 27.5 % (36.0-45.0); Hemoglobin 8.2 g/dL (12.0-15.0); Lymphocytes % 20.1 % (15.3-44.8); MCH 23.7 pg (27.0-35.0); MCHC 29.9 g/dL (32.0-36.0); MPV 9.2 fL (7.6-11.3); Monocytes % 9.4 % (3.3-12.3); Neutrophils % 63.3 % (41.7-73.7); Platelets 202 thou/uL (152-406); RBC Red Blood Cell Count 3.48 M/uL (3.86-4.86); Red Cell Distribution Width 23.2 % (12.1-15.2)
[2023-12-25 13:59] LABS: Albumin 2.9 g/dL (3.4-5.0); Albumin/Globulin Ratio 0.9 (1.1-1.8); Anion Gap 13.1 mEq/L (5.0-15.0); Bilirubin Total 1.7 mg/dL (0.2-1.0); Globulin 3.1 g/dL (2.3-3.5); Magnesium 1.6 mg/dL (1.6-2.4); Potassium 3.1 mEq/L (3.5-5.1)
--- NOTE | 2023-12-25 14:03 | RAD REPORT ---
EXAM DESCRIPTION: MRI - Brain Wo Cont - 12/25/2023 1:05 pm CLINICAL HISTORY: CVA COMPARISON: Head CT and CT angiogram of the previous day. Brain MRI 11/28/2023 TECHNIQUE: Multiplanar multisequence MRI of the brain performed without IV contrast. FINDINGS: Motion artifact somewhat limits evaluation, despite attempts at repeat imaging. Small foci of diffusion restriction along the centrum semiovale bilaterally, frontoparietal subcortic al white matter more so on the right, and the splenium of corpus callosum bilaterally. These demonstr ate corresponding T2/FLAIR signal abnormalities. No evidence of acute intracranial hemorrhage or abnormal extra-axial fluid collections. Left frontal operculum and left anterior temporal pole small regions of encephalomalacia suggesting s equelae of remote ischemia. Foci of hemosiderin staining on the gradient images in these regions as w ell as along the parasagittal left high parietal lobe, suggesting remote micro hemorrhages. Mild diff use parenchymal volume loss. Ventricular caliber otherwise within normal for age. Midline structures are unremarkable. Other scattered subcortical and deep white matter T2/FLAIR hyperintensities, nonspecific, but suggest donna of chronic small vessel ischemic changes. No mass effect or midline shift. Major vascular flow voids are preserved. Mastoid air cells and paranasal sinuses are clear. IMPRESSION: Small foci of diffusion restriction along the centrum semiovale bilaterally, frontoparie roberta subcortical white matter more so on the right, and the splenium of corpus callosum bilaterally, s uggesting late acute to subacute ischemia. Other etiologies may include global hypoperfusion, given t his pattern which is samreen to watershed ischemia, versus embolic infarcts. Other chronic findings as above. The findings were communicated to Dr. Mosley on 12/25/2023 at 13:52 hours.
[2023-12-25] MEDS: NA CHLORIDE 0.9% 1,000 ML IV SCH (16:05)
--- NOTE | 2023-12-25 17:47 | EKG ---
Test Date: 2023-12-24 Test Time: 17:59:21 Work Order Sorting Clerk: LIAM MEASUREMENT RESULTS: Intervals: Rate: 85 [place]: QRSD: 88 QT: 416 QTc: 495 [place]: P: [place]: QRS: 95 T: 89 INTERPRETIVE STATEMENTS: Normal sinus rhythm ST & T wave abnormality, consider inferior ischemia ST & T wave abnormality, consider anterolateral ischemia Prolonged QT Abnormal ECG Compared to ECG 12/01/2023 12:09:14 ST (T wave) deviation still present Possible ischemia still present Electronically Signed On 12-25-23 17:45:09 CDT by Julio Rodriguez
[2023-12-25] MEDS: DULOXETINE 20 MG CAP PO SCH (21:00)
[2023-12-25] MEDS: ENSURE MAX PROTEIN 330 ML LIQUID PO SCH (21:00)
[2023-12-25] MEDS: ROSUVASTATIN 10 MG TAB PO SCH (21:00)
[2023-12-26] MEDS: D5 0.9 NS 1,000 ML IV SCH (01:07)
--- NOTE | 2023-12-26 08:01 | P.PN ---
Date of Service: 12/26/23 Subjective Speech therapy consult to eval and treat Reports eating breakfast, awake and alert Review of Systems is unable to be obtained due to confusion, Physical Examination - Vital Signs Reviewed - Physical Exam General: Alert, Oriented x2, confused HEENT: Atraumatic, Normocephalic Neck: Supple, 2+ carotid pulse no bruit Respiratory: Clear to auscultation bilaterally, Normal air movement Cardiovascular: Regular rate/rhythm, Normal S1 S2 Capillary refill: <2 Seconds Gastrointestinal: Soft and benign, Non-distended, Musculoskeletal: No clubbing, No swelling, generalized weakness Integumentary: No rashes, No breakdown Neurological: Abnormal speech, Abnormal strength, Abnormal cranial nerve function, Assessment and Plan - Plan CVA/TIA focal weakness Numbness of left-sided body Started on aspirin and statin Continue Eliquis CT CTA findings noted MRI brain ordered Monitor neuro vital signs Monitor under telemetry Neurology consult 12/25/23 MRI IMPRESSION: Small foci of diffusion restriction along the centrum semiovale bilaterally, frontoparietal subcortical white matter more so on the right, and the splenium of corpus callosum bilaterally, suggesting late acute to subacute ischemia. Other etiologies may include global hypoperfusion, given this pattern which is samreen to watershed ischemia, versus embolic infarcts. Rapid response called to altered mental status, suspected TIA versus CVA, vital signs stable Speech therapy eval Supportive care, fall precaution Acute encephalopathy possibly metabolic versus ischemic With the findings noted no acute changes Monitor renal parameters and electrolytes History of A-fib status post ablation. Cardiac monitoring On Eliquis Chronic diastolic congestive heart failure Atrial fibrillation on chronic anticoagulation therapy S/P ablation History of CAD with previous CABG Severe pulmonary hypertension She had an ablation for A-fib in May Right heart catheterization by cardiology reported severe pulmonary hypertension. Last Echo showed normal ejection fraction with diastolic dysfunction RVSP of 70 Hypertension Hyperlipidemia Hypothyroidism Head CT negative Continue home medications. CAD Monitor closely on telemetry Continue home medications GI/DVT prophylaxis Advanced directive full code Discharge Plan: Senior Living Plan to discharge in: 48 Hours - Advance Directives Does patient have a Living Will: Yes Does patient have a Durable POA for Healthcare: No - Code Status/Comfort Care Code Status: Full Code Time Spent Managing Pts Care (In Minutes): 35 <Obdulia Vitale - Last Filed: 12/26/23 12:28> Patient was seen and examined. Events of the last 24 hours have been noted. Spoke with with KALLI regarding patient's clinical picture after evaluating and examining the patient independently. I performed a substantial part of the MDM during this patient's care today. I personally made or approved the documented management plan and acknowledge its risk of complications. I agree with the findings and documentation provided in the KALLI's notes. Patient continues to have episodes which appear to be pseudoseizures. Will do an EEG to evaluate for complex partial seizures. Patient seems to be responsive during the seizures but she does stare off into space. Neurology has been consulted regarding MRI findings. Continue with antiepileptics and antiplatelet regimen. Holding Eliquis for GI bleeding and GI workup pending. Appreciate GI consultation. <Vishal Mosley - Last Filed: 12/31/23 02:40>
[2023-12-26] MEDS: LORazepam 2 MG/ML VIAL ONE (13:58)
[2023-12-26] MEDS: LORazepam 2 MG/ML VIAL IV ONE (13:58)
[2023-12-26] MEDS ORDERED: LORazepam 2 MG/ML VIAL IV PRN (14:08)
[2023-12-26 14:21] LABS: Magnesium 1.4 mg/dL (1.6-2.4); Phosphorus 3.1 mg/dL (2.5-4.9); Potassium 3.6 mEq/L (3.5-5.1)
[2023-12-26] MEDS: Magnesium Sulfate 2gm IVPB 2 G/50 ML BAG IV ONE (15:23)
[2023-12-26] MEDS: KCL 20 MEQ/100 mL IVPB 20 MEQ/100 ML BAG IV SCH (16:50)
--- NOTE | 2023-12-26 17:01 | EKG ---
Test Date: 2023-12-24 Test Time: 18:11:14 Oriental Medicine Practitioner: LIAM MEASUREMENT RESULTS: Intervals: Rate: 84 [place]: QRSD: 92 QT: 442 QTc: 522 [place]: P: [place]: QRS: 87 T: 83 INTERPRETIVE STATEMENTS: Normal sinus rhythm ST & T wave abnormality, consider inferior ischemia ST & T wave abnormality, consider anterior ischemia Prolonged QT Abnormal ECG Compared to ECG 12/24/2023 17:59:21 ST (T wave) deviation still present Possible ischemia still present Electronically Signed On 12-26-23 16:58:18 CDT by Julio Rodriguez
[2023-12-26] MEDS: ACETAMINOPHEN 325 MG TABLET PO PRN (20:58)
[2023-12-26] MEDS: MELATONIN 5 MG TABLET PO PRN (21:06)
--- NOTE | 2023-12-27 06:50 | P.PN ---
Date of Service: 12/27/23 Subjective oob w PT today, at bedside Review of Systems is unable to be obtained due to confusion, Physical Examination - Vital Signs Reviewed - Physical Exam General: Alert, Oriented x2, confused, no acute distress noted HEENT: Atraumatic, Normocephalic Neck: Supple, 2+ carotid pulse no bruit Respiratory: Clear to auscultation bilaterally, unlabored Cardiovascular: Regular rate/rhythm, Normal S1 S2 Capillary refill: <2 Seconds Gastrointestinal: Soft and benign, Non-distended, Musculoskeletal: No clubbing, No swelling, generalized weakness Integumentary: No rashes, No breakdown Neurological: Abnormal speech, Abnormal strength, Assessment and Plan - Plan CVA/TIA focal weakness Numbness of left-sided body Started on aspirin and statin Continue Eliquis CT CTA findings noted MRI brain ordered Monitor neuro vital signs Monitor under telemetry Neurology consult 12/25/23 MRI IMPRESSION: Small foci of diffusion restriction along the centrum semiovale bilaterally, frontoparietal subcortical white matter more so on the right, and the splenium of corpus callosum bilaterally, suggesting late acute to subacute ischemia. Other etiologies may include global hypoperfusion, given this pattern which is samreen to watershed ischemia, versus embolic infarcts. Rapid response called to altered mental status, suspected TIA versus CVA, vital signs stable Speech therapy eval Supportive care, fall precaution Acute encephalopathy possibly metabolic versus ischemic With the findings noted no acute changes Monitor renal parameters and electrolytes chronic anticoagulation History of A-fib status post ablation. Cardiac monitoring On Eliquis Chronic diastolic congestive heart failure Atrial fibrillation on chronic anticoagulation therapy S/P ablation History of CAD with previous CABG Severe pulmonary hypertension She had an ablation for A-fib in May Right heart catheterization by cardiology reported severe pulmonary hypertension. Last Echo showed normal ejection fraction with diastolic dysfunction RVSP of 70 Hypertension Hyperlipidemia Hypothyroidism Head CT negative Continue home medications. CAD Monitor closely on telemetry Continue home medications GI/DVT prophylaxis Advanced directive full code Discharge Plan: Half-Way Plan to discharge in: 48 Hours - Advance Directives Does patient have a Living Will: Yes Does patient have a Durable POA for Healthcare: No - Code Status/Comfort Care Code Status: Full Code Time Spent Managing Pts Care (In Minutes): 35 <Obdulia Vitale - Last Filed: 12/28/23 14:59> Patient was seen and examined. Events of the last 24 hours have been noted. Spoke with with KALLI regarding patient's clinical picture after evaluating and examining the patient independently. I performed a substantial part of the MDM during this patient's care today. I personally made or approved the documented management plan and acknowledge its risk of complications. I agree with the findings and documentation provided in the KALLI's notes. Patient seen by GI. EGD in the morning. Evaluated by neurology and continue with medical management. Holding anticoagulation at this time because of bleeding. Patient also with significant cardiac disease with atrial fibrillation and severe pulmonary hypertension. Continue with diuresing as tolerated. <Vishal Mosley - Last Filed: 12/31/23 02:42>
[2023-12-27 07:22] LABS: Absolute Basophils 0.1 K/uL (0-0.5); Absolute Eosinophils 0.3 K/uL (0-0.5); Absolute Lymphocytes (CBC) 1.1 K/uL (0.7-4.9); Absolute Monocytes 0.5 K/uL (0.1-1.3); Absolute Neutrophil 2.6 K/uL (1.8-8.0); Basophils % 2.8 % (0-1.3); Eosinophils % 6.2 % (0-4.4); Hematocrit 24.5 % (36.0-45.0); Hemoglobin 7.4 g/dL (12.0-15.0); Lymphocytes % 22.7 % (15.3-44.8); MCH 24.2 pg (27.0-35.0); MCHC 30.3 g/dL (32.0-36.0); MCV 79.8 fL (80-100); MPV 9.2 fL (7.6-11.3); Monocytes % 11.7 % (3.3-12.3); Neutrophils % 56.6 % (41.7-73.7); Nucleated Red Blood Cells % 0.1 % (0-0); Platelets 189 thou/uL (152-406); RBC Red Blood Cell Count 3.07 M/uL (3.86-4.86); Red Cell Distribution Width 22.8 % (12.1-15.2)
[2023-12-27 07:28] LABS: Anion Gap 14.1 mEq/L (5.0-15.0); Magnesium 1.7 mg/dL (1.6-2.4); Potassium 3.1 mEq/L (3.5-5.1)
[2023-12-27] MEDS: NA CHLORIDE 0.9% 500 ML ONE (08:28)
[2023-12-27] MEDS: NA CHLORIDE 0.9% 500 ML IV ONE (08:39)
[2023-12-27] MEDS: FUROSEMIDE 20 MG TABLET PO SCH (09:00)
[2023-12-27] MEDS: KCL 20 MEQ/100 mL IVPB 20 MEQ/100 ML BAG IV SCH (12:26)
[2023-12-27 14:28] LABS: Absolute Basophils 0.1 K/uL (0-0.5); Absolute Eosinophils 0.3 K/uL (0-0.5); Absolute Lymphocytes (CBC) 1.2 K/uL (0.7-4.9); Absolute Monocytes 0.5 K/uL (0.1-1.3); Absolute Neutrophil 2.8 K/uL (1.8-8.0); Basophils % 2.3 % (0-1.3); Eosinophils % 5.6 % (0-4.4); Hemoglobin 7.3 g/dL (12.0-15.0); Lymphocytes % 24.9 % (15.3-44.8); MCH 24.2 pg (27.0-35.0); MCHC 30.4 g/dL (32.0-36.0); MCV 79.4 fL (80-100); Monocytes % 9.9 % (3.3-12.3); Neutrophils % 57.3 % (41.7-73.7); Nucleated Red Blood Cells % 0.1 % (0-0); Platelets 195 thou/uL (152-406); RBC Red Blood Cell Count 3.02 M/uL (3.86-4.86); Red Cell Distribution Width 23.2 % (12.1-15.2)
[2023-12-27] MEDS: VALPROATE SODIUM INJ 500 MG in NA CHLORIDE 0.9% 100 ML IV ONE (20:06)
[2023-12-27] MEDS: DIVALPROEX DR 500MG TAB PO SCH (20:25)
--- NOTE | 2023-12-28 06:20 | P.PN ---
Date of Service: 12/28/23 Subjective black tarry stools today, severe anemia, GI consulted Review of Systems is unable to be obtained due to confusion, Physical Examination - Vital Signs Reviewed - Physical Exam General: Alert, Oriented x2, confused HEENT: Atraumatic, Normocephalic Neck: Supple, 2+ carotid pulse no bruit Respiratory: Clear to auscultation bilaterally, Normal air movement Cardiovascular: Regular rate/rhythm, Normal S1 S2 Capillary refill: <2 Seconds Gastrointestinal: Soft and benign, Non-distended, Musculoskeletal: No clubbing, No swelling, generalized weakness Integumentary: No rashes, No breakdown Neurological: Abnormal speech, Abnormal strength, Abnormal cranial nerve function, Assessment and Plan - Plan CVA/TIA focal weakness Numbness of left-sided body Started on aspirin and statin Continue Eliquis CT CTA findings noted MRI brain ordered Monitor neuro vital signs Monitor under telemetry Neurology consult 12/25/23 MRI IMPRESSION: Small foci of diffusion restriction along the centrum semiovale bilaterally, frontoparietal subcortical white matter more so on the right, and the splenium of corpus callosum bilaterally, suggesting late acute to subacute ischemia. Other etiologies may include global hypoperfusion, given this pattern which is samreen to watershed ischemia, versus embolic infarcts. Rapid response called to altered mental status, suspected TIA versus CVA, vital signs stable Speech therapy eval Supportive care, fall precaution acute GIB severe anemia GI consulted, keep NPO protonix gtt midline ordered for IV access TC 2 units, Acute encephalopathy possibly metabolic versus ischemic With the findings noted no acute changes Monitor renal parameters and electrolytes chronic anticoagulation History of A-fib status post ablation. Cardiac monitoring On Eliquis Chronic diastolic congestive heart failure Atrial fibrillation on chronic anticoagulation therapy S/P ablation History of CAD with previous CABG Severe pulmonary hypertension She had an ablation for A-fib in May Right heart catheterization by cardiology reported severe pulmonary hypertension. Last Echo showed normal ejection fraction with diastolic dysfunction RVSP of 70 Hypertension Hyperlipidemia Hypothyroidism Head CT negative Continue home medications. CAD Monitor closely on telemetry Continue home medications GI/DVT prophylaxis Advanced directive full code Discharge Plan: Intermediate Plan to discharge in: 48 Hours - Advance Directives Does patient have a Living Will: Yes Does patient have a Durable POA for Healthcare: No - Code Status/Comfort Care Code Status: Full Code Time Spent Managing Pts Care (In Minutes): 35 <Obdulia Vitale - Last Filed: 12/28/23 14:57> Patient was seen and examined. Events of the last 24 hours have been noted. Spoke with with KALLI regarding patient's clinical picture after evaluating and examining the patient independently. I performed a substantial part of the MDM during this patient's care today. I personally made or approved the documented management plan and acknowledge its risk of complications. I agree with the findings and documentation provided in the KALLI's notes. EGD with no active bleeding. Patient will be placed on mood stabilizer. Will add Depakote to her regimen. Will continue with antiplatelet therapy and statin therapy and hold anticoagulation as long as hemoglobin is not improving. Long- term prognosis remains poor. I was notified by family that they are paying [id number] for the custodial facility. Will go ahead and initiate inpatient rehab evaluation. <Vishal Mosley - Last Filed: 12/31/23 02:43>
[2023-12-28 07:30] LABS: Absolute Basophils 0.1 K/uL (0-0.5); Absolute Eosinophils 0.2 K/uL (0-0.5); Absolute Monocytes 0.3 K/uL (0.1-1.3); Absolute Neutrophil 2.4 K/uL (1.8-8.0); Eosinophils % 6.2 % (0-4.4); Hematocrit 20.6 % (36.0-45.0); Hemoglobin 6.4 g/dL (12.0-15.0); Lymphocytes % 25.3 % (15.3-44.8); MCH 24.7 pg (27.0-35.0); MCHC 30.9 g/dL (32.0-36.0); MCV 79.9 fL (80-100); MPV 8.8 fL (7.6-11.3); Monocytes % 8.2 % (3.3-12.3); Neutrophils % 58.3 % (41.7-73.7); Platelets 173 thou/uL (152-406); RBC Red Blood Cell Count 2.58 M/uL (3.86-4.86); Red Cell Distribution Width 22.3 % (12.1-15.2)
[2023-12-28 07:55] LABS: Anion Gap 8.9 mEq/L (5.0-15.0); Potassium 2.9 mEq/L (3.5-5.1)
[2023-12-28] MEDS: INSULIN 70/30 100 UNITS/ML SQ SCH (09:09)
[2023-12-28] MEDS: KCL 20 MEQ/100 mL IVPB 20 MEQ/100 ML BAG IV SCH ×3 (11:00→21:59)
[2023-12-28] MEDS ORDERED: NA CHLORIDE 0.9% 250 ML IV SCH (11:00)
[2023-12-28] MEDS: DIPHENHYDRAMINE 50 MG/ML VIAL IV ONE (12:09)
[2023-12-28] MEDS: POTASSIUM 25 MEQ EFFERV TAB PO ONE (12:10)
[2023-12-28] MEDS: ACETAMINOPHEN 500 MG TAB PO ONE (12:10)
[2023-12-28] MEDS: FUROSEMIDE 20 MG/ 2ML VIAL IV ONE (12:10)
[2023-12-28] MEDS: PANTOPRAZOLE INJ 80 MG in NA CHLORIDE 0.9% 250 ML IV SCH (15:17)
[2023-12-28] MEDS: NA CHLORIDE 0.9% 500 ML ONE (16:15)
[2023-12-28] MEDS ORDERED: EPINEPHRINE 1 MG/ML VIAL ONE (16:27)
[2023-12-28] MEDS ORDERED: propofoL 200 MG/20 ML VIAL IV ONE (16:32)
[2023-12-28 17:35] LABS: Hematocrit 24.4 % (36.0-45.0); Hemoglobin 7.6 g/dL (12.0-15.0)
--- NOTE | 2023-12-28 20:02 | P.PN ---
Date of Service: 12/28/23 Rapid Response Rapid response was called at radiology when she was going to be having a small bowel follow-through Patient passed out Was drowsy Vitals were stable Got a CT of the head which showed no acute changes. Patient recovered well Monitor closely under telemetry
--- NOTE | 2023-12-28 20:06 | RAD REPORT ---
EXAM DESCRIPTION: CT - Head Brain Wo Cont - 12/28/2023 7:59 pm CLINICAL HISTORY: AMS Headache, drowsiness COMPARISON: <Comparisons> TECHNIQUE: All CT scans are performed using dose optimization technique as appropriate and may inclu de automated exposure control or mA/KV adjustment according to patient size. FINDINGS: No intracranial hemorrhage, hydrocephalus or extra-axial fluid collection.Mild generalized brain atrophy is present with mild periventricular and deep white matter chronic microvascular ische albertina changes.No areas of brain edema or evidence of midline shift. Mild diminished density seen left f rontal region. The paranasal sinuses and mastoids are clear. The calvarium is intact. IMPRESSION: No acute intracranial abnormality.
[2023-12-28 20:32] LABS: Absolute Basophils 0.1 K/uL (0-0.5); Absolute Eosinophils 0.3 K/uL (0-0.5); Absolute Lymphocytes (CBC) 1.3 K/uL (0.7-4.9); Absolute Monocytes 0.5 K/uL (0.1-1.3); Absolute Neutrophil 3.5 K/uL (1.8-8.0); Basophils % 1.5 % (0-1.3); Eosinophils % 5.6 % (0-4.4); Hematocrit 26.3 % (36.0-45.0); Hemoglobin 8.1 g/dL (12.0-15.0); MCH 24.8 pg (27.0-35.0); MCHC 30.8 g/dL (32.0-36.0); MCV 80.6 fL (80-100); Monocytes % 8.2 % (3.3-12.3); Neutrophils % 61.7 % (41.7-73.7); Nucleated Red Blood Cells % 0.1 % (0-0); Platelets 185 thou/uL (152-406); RBC Red Blood Cell Count 3.27 M/uL (3.86-4.86); Red Cell Distribution Width 20.7 % (12.1-15.2)
--- NOTE | 2023-12-28 21:06 | CON ---
Reason For Consultation: The consultation called because of possible seizures versus stroke. History Of Present Illness: Ms. Dey is a 73-year-old patient with multiple medical problems incl uding chronic diastolic congestive heart failure; paroxysmal atrial fibrillation, status post multipl e ablation, potentially still is in fibrillation at times; chronic pain; hypertension; dyslipidemia; hypothyroidism; and reported stroke with diffuse residual deficits including difficulty with communic ation and expressive aphasia and note clear large asymmetry in terms of strength. She was recently s een in [place] with the possibility of seizures versus stroke. The patient's noted that the scan of the brain identified multiple areas of stroke that were more acute to subacute and etiology w as felt to be cardioembolic, potentially related to atrial fibrillation. He said she had been on ant icoagulation chronically with Eliquis along with aspirin when these strokes likely occurred. In any event, she was discharged for senior care, but while there, patient was observed to have abnormal behavior, had generalized weakness and was brought to [facility]. At [facility], her imaging, which includes brain MRI identified small foci of diffuse restriction along with centrum semiovale bilaterally in the frontoparietal subcortical white matter, more on the right, also in the splenium of the corpus callosum bilaterally. There was involvement of the left frontal operculum an d left anterior temporal pole where there were areas of encephalomalacia suggesting remote strokes. The prior strokes were noted to be more acute than chronic. In addition, there were areas of hemosid rosa suggestive of remote microhemorrhages. There was diffuse parenchymal volume loss and the ventri cles were for the volume loss. The findings were felt to be more related to embolic event . Also, potential watershed infarcts were noted as a possibility. There was an EEG done while in [facility]. The patient's noted that it was during an episode where the patient had confusion andrew t worsened and there was no epileptiform discharge. The EEG background was slow. There was an EEG d one at [facility] and the study essentially showed the same finding of a slow background wit h no epileptiform discharges. Past Medical History: As noted. Allergies: NO KNOWN DRUG ALLERGIES. Medications: Keppra 500 mg twice daily, Coreg 12.5 mg twice daily, spironolactone 50 mg daily, Entre sto 24 mg/26 mg tablet twice daily, potassium 20 mEq twice daily, Lasix 40 mg twice daily, Eliquis 5 mg twice daily, multivitamin and iron daily, aspirin 81 mg daily, cyanocobalamin that is vitamin B12 5000 mcg daily, 70/30 NPH insulin 30 units daily with breakfast, Crestor 20 mg at bedtime, melatonin 10 mg at bedtime, Synthroid daily. Family History: Noncontributory. Surgical History: Triple bypass in 2002, carotid artery surgery also 2002, cholecystectomy in 2002, femoral-popliteal bypass in 2006, atrial ablation done multiple times, and carotid endarterectomy. Family History: Positive for cancer in mother. Social History: No alcohol or tobacco. There is occasional caffeine use. Review of Systems: Per the patient and . No recent fevers or chills. No significant myalgias, arthralgias, or r mateus. There is diffuse weakness and confusion. Physical Examination: Vital Signs: Blood pressure 110/73, pulse 78, respiratory rate 16, temperature 98.2, O2 saturation 1 00%. General: Ms. Dey is lying in bed. HEENT: She is normocephalic, atraumatic. Sclerae anicteric. Oropharynx pink, moist. Neck: Supple. Chest: Good air movement. Heart: Irregularly irregular. Abdomen: Soft. Extremities: Show no significant cyanosis, clubbing, or edema. Neurologic: She has no obvious cranial nerve deficits. She is able to smile symmetrically, track in all directions. There is some difficulty with communication; however, she eventually is able to lif t her arm if told to. Had difficulty showing a thumbs up sign when asked to. Both legs move symmetr ically and the arms did move symmetrically. Tone is slightly increased in all extremities. Difficul t to fully assess her sensation, coordination, symmetric reflexes. Laboratory Studies: White blood cell count 4.0, hemoglobin 6.4, platelets 173. Her INR 1.72. Sodiu m 144, potassium 2.9, chloride 115, carbon dioxide 23, BUN 7, creatinine 0.75, glucose ranged from 66 to 158, calcium 9.1. CT angiogram of the neck showed no significant stenosis involving the cervical segments of both inter nal carotid arteries. There is normal flow in both vertebral arteries. 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 There is no evidence of large vessel occlusion or flow-limiting stenosis otherwise. Assessment And Plan: Ms. Dey is a 73-year-old patient with multiple medical problems as noted, vijaya gr appears to have multiple cardioembolic strokes, which likely produced some cognitive impairment as reflected by EEG and the patient's poor responsiveness. 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 Her atrial fibrillation is addressed with the Eliquis and aspirin, but that puts her at significant risk of bleeding. There is a reported GI bleed, although patient's hemoglobin was around 8.2 on the and had dropped to 6.4 potentially because of the Eliquis and aspirin. There is a GI consult pending. She did receive a un it of blood and the followup blood work is pending and hemoglobin was down to 6.4 with hematocrit of 20.6. She was evaluated by the therapy service, Physical Therapy, and appeared to be a good candidat e. However, the GI bleed issue has to be addressed and is being addressed by Dr. Atkinson evaluating her with GI workup. Plan: The patient should have SCDs while she is awaiting evaluation of the GI tract to see if there is an active bleed and potentially would long-term benefit from a Watchman procedure. Currently, she may resume once cleared from the GI standpoint on anticoagulation. She may benefit from aggressive therapy in the inpatient unit given the subacute strokes affecting her ability to communicate and to understand language easily. Also, she is likely to become debilitated from being in the hospital over several days to now few weeks. She will be followed while in [facility]. NATHEN/LADONNA Voice ID: [id number] Report ID: [id number]
[2023-12-28 21:39] LABS: Potassium 3.3 mEq/L (3.5-4.9)
[2023-12-28 21:40] LABS: Anion Gap 14.3 mEq/L (5.0-15.0)
[2023-12-28 21:41] LABS: Albumin 2.5 g/dL (3.4-5.0); Albumin/Globulin Ratio 0.9 (1.1-1.8); Bilirubin Total 1.3 mg/dL (0.2-1.0); Globulin 2.9 g/dL (2.3-3.5); Magnesium 1.3 mg/dL (1.6-2.4); Phosphorus 2.5 mg/dL (2.5-4.9); Protein, Total 5.4 g/dL (6.4-8.2); Troponin High Sensitivity 41.8 pg/mL (<58.9)
--- NOTE | 2023-12-29 06:31 | P.PN ---
Date of Service: 12/29/23 Subjective GI saw patient for GI bleed, EGD, Neuro following patient-evaluated EEG Neurology no appears to have multiple embolic stroke is being seen by physical therapy, that had some cognitive impairment-patient would benefit benefit from aggressive inpatient rehab Review of Systems is unable to be obtained due to confusion, Physical Examination - Vital Signs Reviewed - Physical Exam General: Alert, Oriented x2, confused, no acute distress noted, eyes open to verbal, HEENT: Atraumatic, Normocephalic Neck: Supple, 2+ carotid pulse no bruit Respiratory: Clear to auscultation bilaterally, unlabored Cardiovascular: Regular rate/rhythm, Normal S1 S2 Capillary refill: <2 Seconds Gastrointestinal: Soft and benign, Non-distended, obese Musculoskeletal: No clubbing, No swelling, generalized weakness Integumentary: No rashes, No breakdown Neurological: Abnormal speech, Abnormal strength, Assessment and Plan - Plan CVA/TIA Embolic CVA focal weakness Numbness of left-sided body Started on aspirin and statin Continue Eliquis CT CTA findings noted MRI brain ordered Monitor neuro vital signs Monitor under telemetry Neurology consult 12/25/23 MRI IMPRESSION: Small foci of diffusion restriction along the centrum semiovale bilaterally, frontoparietal subcortical white matter more so on the right, and the splenium of corpus callosum bilaterally, suggesting late acute to subacute ischemia. Other etiologies may include global hypoperfusion, given this pattern which is samreen to watershed ischemia, versus embolic infarcts. Rapid response called to altered mental status, suspected TIA versus CVA, vital signs stable Speech therapy eval Supportive care, fall precaution EEG-. There was an EEG done at [facility] and the study essentially showed the same finding of a slow background with no epileptiform discharges. Neuro following patient-evaluated EEG Neurology no appears to have multiple embolic stroke is being seen by physical therapy, that had some cognitive impairment-patient would benefit benefit from aggressive inpatient rehab GI bleed Placed on a PPI drip GI following for EGD today SCDs Acute encephalopathy possibly metabolic versus ischemic With the findings noted no acute changes Monitor renal parameters and electrolytes chronic anticoagulation History of A-fib status post ablation. Cardiac monitoring On Eliquis SCDs while off anticoagulation Chronic diastolic congestive heart failure Atrial fibrillation on chronic anticoagulation therapy S/P ablation History of CAD with previous CABG Severe pulmonary hypertension She had an ablation for A-fib in May Right heart catheterization by cardiology reported severe pulmonary hypertension. Last Echo showed normal ejection fraction with diastolic dysfunction RVSP of 70 Hypertension Hyperlipidemia Hypothyroidism Head CT negative Continue home medications. CAD Monitor closely on telemetry Continue home medications GI/DVT prophylaxis Advanced directive full code Discharge Plan: Prison Plan to discharge in: 48 Hours - Advance Directives Does patient have a Living Will: Yes Does patient have a Durable POA for Healthcare: No - Code Status/Comfort Care Code Status: Full Code Time Spent Managing Pts Care (In Minutes): 35 <Obdulia Vitale - Last Filed: 12/29/23 14:25> Patient was seen and examined. Events of the last 24 hours have been noted. Spoke with with KALLI regarding patient's clinical picture after evaluating and examining the patient independently. I performed a substantial part of the MDM during this patient's care today. I personally made or approved the documented management plan and acknowledge its risk of complications. I agree with the findings and documentation provided in the KALLI's notes. EGD with no active bleeding. Patient is clinically doing better. She has had no further episodes where they have called a rapid response. Will continue with the mood stabilizer as the has related that she gets aggressive at times since she has had the stroke. Patient appears to have some watershed area so we will definitely monitor blood pressure and we will want to trend it towards the higher side. Will continue with antiplatelet therapy and statin therapy and hold anticoagulation as long as hemoglobin is not improving. No further anticoagulation at this time. After I was notified by family that they are paying [id number] for the correction facility-will go ahead and try to initiate inpatient rehab for the stroke along with patient's GI bleeding. <Vishal Mosley - Last Filed: 12/31/23 02:44>
[2023-12-29 07:40] LABS: Absolute Basophils 0.1 K/uL (0-0.5); Absolute Eosinophils 0.4 K/uL (0-0.5); Absolute Monocytes 0.4 K/uL (0.1-1.3); Absolute Neutrophil 2.8 K/uL (1.8-8.0); Basophils % 1.9 % (0-1.3); Eosinophils % 7.6 % (0-4.4); Hemoglobin 7.6 g/dL (12.0-15.0); Lymphocytes % 21.6 % (15.3-44.8); MCH 24.4 pg (27.0-35.0); MCHC 30.5 g/dL (32.0-36.0); MCV 80.1 fL (80-100); MPV 8.6 fL (7.6-11.3); Monocytes % 8.3 % (3.3-12.3); Neutrophils % 60.6 % (41.7-73.7); Platelets 169 thou/uL (152-406); RBC Red Blood Cell Count 3.12 M/uL (3.86-4.86); Red Cell Distribution Width 21.1 % (12.1-15.2)
[2023-12-29 07:56] LABS: Anion Gap 8.3 mEq/L (5.0-15.0); Magnesium 1.3 mg/dL (1.6-2.4); Potassium 3.3 mEq/L (3.5-5.1)
[2023-12-29 08:28] LABS: Anisocytosis 1+; Blood Morphology Comment NOTED (NOT SEEN); Platelet Estimate ADEQ; White Blood Cell Scan OK (OK)
[2023-12-29] MEDS: POTASSIUM 25 MEQ EFFERV TAB PO ONE (15:10)
[2023-12-30 05:58] LABS: Absolute Basophils 0.1 K/uL (0-0.5); Absolute Eosinophils 0.3 K/uL (0-0.5); Absolute Monocytes 0.3 K/uL (0.1-1.3); Absolute Neutrophil 2.4 K/uL (1.8-8.0); Basophils % 1.9 % (0-1.3); Eosinophils % 7.9 % (0-4.4); Hematocrit 25.1 % (36.0-45.0); Hemoglobin 7.6 g/dL (12.0-15.0); Lymphocytes % 24.3 % (15.3-44.8); MCH 24.5 pg (27.0-35.0); MCHC 30.4 g/dL (32.0-36.0); MCV 80.5 fL (80-100); Neutrophils % 57.9 % (41.7-73.7); Nucleated Red Blood Cells % 0.1 % (0-0); Platelets 163 thou/uL (152-406); RBC Red Blood Cell Count 3.12 M/uL (3.86-4.86)
[2023-12-30 06:21] LABS: Albumin 2.4 g/dL (3.4-5.0); Anion Gap 8.2 mEq/L (5.0-15.0); Magnesium 1.2 mg/dL (1.6-2.4); Potassium 3.2 mEq/L (3.5-5.1)
[2023-12-30] MEDS: Magnesium Sulfate 2gm IVPB 2 G/50 ML BAG IV ONE (06:39)
--- NOTE | 2023-12-30 07:16 | P.PN ---
Date of Service: 12/30/23 Subjective Working with physical therapy, authorization pending inpatient rehab Had a recent GI bleed, no active bleeding today Review of Systems 10 point system review of negative unless listed in HPI Physical Examination - Vital Signs Reviewed - Physical Exam General: Alert, Oriented x2, confused, no acute distress noted, eyes open to verbal, HEENT: Atraumatic, Normocephalic Neck: Supple, 2+ carotid pulse no bruit Respiratory: Clear to auscultation bilaterally, unlabored Cardiovascular: Regular rate/rhythm, Normal S1 S2 Capillary refill: <2 Seconds Gastrointestinal: Soft and benign, nontender Musculoskeletal: No clubbing, No swelling, generalized weakness Integumentary: No rashes, No breakdown Neurological: Abnormal speech, Abnormal strength, Assessment and Plan - Plan CVA/TIA Embolic CVA focal weakness Numbness of left-sided body Started on aspirin and statin Continue Eliquis CT CTA findings noted MRI brain ordered Monitor neuro vital signs Monitor under telemetry Neurology consult 12/25/23 MRI IMPRESSION: Small foci of diffusion restriction along the centrum semiovale bilaterally, frontoparietal subcortical white matter more so on the right, and the splenium of corpus callosum bilaterally, suggesting late acute to subacute ischemia. Other etiologies may include global hypoperfusion, given this pattern which is samreen to watershed ischemia, versus embolic infarcts. Rapid response called to altered mental status, suspected TIA versus CVA, vital signs stable Speech therapy eval Supportive care, fall precaution EEG-. There was an EEG done at [facility] and the study essentially showed the same finding of a slow background with no epileptiform discharges. Neuro following patient-evaluated EEG Neurology no appears to have multiple embolic stroke is being seen by physical therapy, that had some cognitive impairment-patient would benefit benefit from aggressive inpatient rehab GI bleed improved Placed on a PPI drip, changed to PPI twice daily GI following for EGD today SCDs Acute encephalopathy possibly metabolic versus ischemic With the findings noted no acute changes Monitor renal parameters and electrolytes chronic anticoagulation History of A-fib status post ablation. Cardiac monitoring On Eliquis SCDs while off anticoagulation Chronic diastolic congestive heart failure Atrial fibrillation on chronic anticoagulation therapy S/P ablation History of CAD with previous CABG Severe pulmonary hypertension She had an ablation for A-fib in May Right heart catheterization by cardiology reported severe pulmonary hypertension. Last Echo showed normal ejection fraction with diastolic dysfunction RVSP of 70 Hypertension Hyperlipidemia Hypothyroidism Head CT negative Continue home medications. CAD Monitor closely on telemetry Continue home medications GI/DVT prophylaxis Advanced directive full code Discharge Plan: Retirement Plan to discharge in: 48 Hours - Advance Directives Does patient have a Living Will: Yes Does patient have a Durable POA for Healthcare: No - Code Status/Comfort Care Code Status: Full Code Time Spent Managing Pts Care (In Minutes): 35 <Obdulia Vitale - Last Filed: 12/30/23 14:43> Patient was seen and examined. Events of the last 24 hours have been noted. Spoke with with KALLI regarding patient's clinical picture after evaluating and examining the patient independently. I performed a substantial part of the MDM during this patient's care today. I personally made or approved the documented management plan and acknowledge its risk of complications. I agree with the findings and documentation provided in the KALLI's notes. EGD with no active bleeding. Patient is clinically doing better. She has had no further episodes where they have called a rapid response. Will continue with the mood stabilizer as the has related that she gets aggressive at times since she has had the stroke. Patient appears to have some watershed area so we will definitely monitor blood pressure and we will want to trend it towards the higher side. Will continue with antiplatelet therapy and statin therapy and hold anticoagulation as long as hemoglobin is not improving. No further anticoagulation at this time. After I was notified by family that they are paying [id number] for the retirement facility-will go ahead and try to initiate inpatient rehab for the stroke along with patient's GI bleeding. Family also requested appetite stimulant. This is restarted <Vishal Mosley - Last Filed: 12/31/23 02:45>
[2023-12-30] MEDS: POTASSIUM CL SA 10 MEQ TAB PO ONE (09:14)
[2023-12-30] MEDS: PANTOPRAZOLE 40MG TABLET PO SCH (12:00)
[2023-12-30] MEDS ORDERED: GABAPENTIN 300 MG CAP PO PRN (12:34)
[2023-12-30] MEDS: ENOXAPARIN 40 MG/0.4 ML SQ SCH (17:12)
[2023-12-30] MEDS: KCL 20 MEQ/100 mL IVPB 20 MEQ/100 ML BAG IV SCH (18:00)
--- NOTE | 2023-12-30 19:34 | P.PN ---
Subjective Date of Service: 12/30/23 Chief Complaint: Anemia, CVA Subjective: Improving (Hgb stable at 7.6 X 2 days. No GI bleeding reported.) Physical Examination - Vital Signs Temperature: 97.6 F Blood Pressure: 141/39 Pulse: 65 Respirations: 17 Pulse Ox (%): 100 Assessment And Plan - Current Problems (Diagnosis) (1) Congestive heart failure Current Visit: No Status: Acute Qualifiers: Heart failure type: diastolic Heart failure chronicity: acute on chronic Qualified Code(s): I50.33 - Acute on chronic diastolic (congestive) heart f ailure (2) Severe pulmonary hypertension Current Visit: No Status: Acute (3) Diabetes Current Visit: No Status: Chronic Qualifiers: Diabetes mellitus type: type 2 Diabetes mellitus care home insulin use: with care home use Diabetes mellitus complication status: with hyperglycemia Qualified Code(s): E11.65 - Type 2 diabetes mellitus with hyperglycemia; Z79.4 - long-term (current) use of insulin (4) Hypertension Current Visit: No Status: Chronic Qualifiers: Hypertension type: primary hypertension Qualified Code(s): I10 - Essential (primary) hypertension - Plan REC: 1) Continue H&Hs and transfuse prn 2) consider colonoscopy once neurology deems stable to docolonoscopy off blood thinners 3) PPI
[2023-12-30] MEDS: POTASSIUM 25 MEQ EFFERV TAB PO ONE (22:23)
[2023-12-31 05:16] LABS: Percent Reticulocyte Count 1.58 % (0.4-2.05); RBC Red Blood Cell Count 2.7 M/uL (3.86-4.86)
[2023-12-31 05:19] LABS: Absolute Basophils 0.1 K/uL (0-0.5); Absolute Eosinophils 0.3 K/uL (0-0.5); Absolute Lymphocytes (CBC) 0.9 K/uL (0.7-4.9); Absolute Monocytes 0.4 K/uL (0.1-1.3); Absolute Neutrophil 1.9 K/uL (1.8-8.0); Eosinophils % 7.3 % (0-4.4); Hematocrit 21.3 % (36.0-45.0); Hemoglobin 6.6 g/dL (12.0-15.0); Lymphocytes % 25.6 % (15.3-44.8); MCH 24.7 pg (27.0-35.0); MCHC 31.2 g/dL (32.0-36.0); MCV 79.3 fL (80-100); MPV 8.6 fL (7.6-11.3); Monocytes % 10.3 % (3.3-12.3); Neutrophils % 54.8 % (41.7-73.7); Nucleated Red Blood Cells % 0.2 % (0-0); Platelets 159 thou/uL (152-406); RBC Red Blood Cell Count 2.69 M/uL (3.86-4.86)
[2023-12-31 05:24] LABS: Red Cell Distribution Width 20.9 % (12.1-15.2)
[2023-12-31 05:38] LABS: Albumin 2.1 g/dL (3.4-5.0); Anion Gap 8.1 mEq/L (5.0-15.0); Bicarbonate 24 mEq/L (21-32); Glomerular Filtration Rate 97 ml/min (=/>90); Glucose Level 75 mg/dL (74-106); Magnesium 1.8 mg/dL (1.6-2.4); Phosphorus 3.2 mg/dL (2.5-4.9); Potassium 3.1 mEq/L (3.5-5.1); Sodium Level 145 mEq/L (136-145)
[2023-12-31 05:42] LABS: BUN Blood Urea Nitrogen < 3 mg/dL (7-18)
[2023-12-31] MEDS: POTASSIUM CL 40 MEQ in NA CHLORIDE 0.9% 500 ML IV SCH (08:46)
[2023-12-31] MEDS: MEGESTROL 400 MG/10 ML UCUP PO SCH (08:46)
--- NOTE | 2023-12-31 11:07 | EEG ---
CHART: [id number] TEST ID#: [id number] DATE OF STUDY: 12/27/2023 THE EEG WAS RECORDED PORTABLE IN THE PATIENT'S ROOM ON A 17 CHANNEL MACHINE. ELECTRODES WERE APPLIED IN THE USUAL MANNER USING THE INTERNATIONAL 10-20 SYSTEM. THE WAKING BACKGROUND RHYTHM IN THIS RECORD CONSISTS OF POORLY DEVELOPED AND POORLY ORGANIZED WAVES OF 8 HZ., IN A WIDE DISTRIBUTION WHICH ATTENUATE NORMALLY WITH EYE OPENING. MODERATE VOLTAGE 1.5-3 HZ MIXED WITH 4-6 HZ ACTIVITY IS EXPRESSED IN THE FRONTAL AND CENTRAL REGIONS. THERE ARE NO FOCAL OR LATERALIZING FEATURES. NO EPILEPTIFORM ACTIVITY APPEARS. SLEEP DID NOT OCCUR. HYPERVENTILATION WAS NOT PERFORMED. PHOTIC STIMULATION PRODUCED NO DRIVING BILATERALLY. IMPRESSION: THIS IS A MILDLY ABNORMAL ROUTINE EEG DUE TO A MILDLY SLOW BACKGROUND. THIS IS A NON-SPECIFIC FINDING INDICATING THE PRESENCE OF A MILD DIFFUSE DISTURBANCE IN CEREBRAL FUNCTION.
[2023-12-31] MEDS: NA CHLORIDE 0.9% 500 ML ONE (11:10)
--- NOTE | 2023-12-31 14:37 | P.PN ---
Subjective Date of Service: 12/31/23 Chief Complaint: CVA Pt is resting comfortably in bed. She has right sided weakness that is improving. Pt was able to walk with PT. GI is following. Will do Endoscopy. No other complaints. Review of Systems General: Unremarkable Eyes: Unremarkable ENT: Unremarkable Respiratory: Unremarkable Cardiovascular: Unremarkable Gastrointestinal: Unremarkable Genitourinary: Unremarkable Musculoskeletal: Unremarkable Integumentary: Unremarkable Neurological: Weakness Lymphatics: Unremarkable Physical Examination - Vital Signs Temperature: 97.6 F Blood Pressure: 143/55 Pulse: 64 Respirations: 17 Pulse Ox (%): 99 - Physical Exam General: Alert, In no apparent distress, Confused HEENT: Atraumatic, Normocephalic, PERRLA Neck: Supple, 2+ carotid pulse no bruit, JVD not distended Respiratory: Clear to auscultation bilaterally, Normal air movement Cardiovascular: No edema, Normal pulses, Regular rate/rhythm, Normal S1 S2 Capillary refill: <2 Seconds Gastrointestinal: Normal bowel sounds, Soft and benign, Non-distended Musculoskeletal: No clubbing, No swelling, No contractures Integumentary: No rashes, No breakdown, No significant lesion Neurological: Normal gait, Normal speech, Normal tone, Sensation intact, Abnormal strength Lymphatics: No axilla or inguinal lymphadenopathy Assessment And Plan - Plan CVA/TIA: Pt has embolic CVA with left sided weakness and numbness. Will continue eliquis, aspirin and statin. CT head is unremarkable. MRI brain shows Small foci of diffusion restriction along the centrum semiovale bilaterally, frontoparietal subcortical white matter more so on the right, and the splenium of corpus callosum bilaterally, suggesting late acute to subacute ischemia. Other etiologies may include global hypoperfusion, given this pattern which is samreen to watershed ischemia, versus embolic infarcts. EEG showed showed the same finding of a slow background with no epileptiform discharges. Anemia: Hgb is 6.6. She feels tired. Will transfuse 2 units of pRBC and monitor H/H. GI bleed: Will continue protonix 40mg po BID. GI is following. EGD shows mild gastritis. Acute encephalopathy possibly metabolic versus ischemic: Willcontinue supportive care. Will monitor replete deficient electrolytes. chronic anticoagulation / History of A-fib status post ablation: Off Eliquis. COntinue telemetry, BB and aspirin. Chronic diastolic congestive heart failure: Right heart catheterization by cardiology reported severe pulmonary hypertension. Last Echo showed normal ejection fraction with diastolic dysfunction. RVSP of 70. Severe pulmonary hypertension Hypertension: Continue home med Hyperlipidemia: Statin Hypothyroidism: synthroid. Hx of CAD: Continue home med DVT ppx: SCD Dispo: Pending hospital course.
[2024-01-01 05:50] LABS: Absolute Basophils 0.1 K/uL (0-0.5); Absolute Eosinophils 0.2 K/uL (0-0.5); Absolute Lymphocytes (CBC) 0.9 K/uL (0.7-4.9); Absolute Monocytes 0.3 K/uL (0.1-1.3); Absolute Neutrophil 1.8 K/uL (1.8-8.0); Basophils % 1.9 % (0-1.3); Hemoglobin 8.8 g/dL (12.0-15.0); Lymphocytes % 26.5 % (15.3-44.8); MCH 27.2 pg (27.0-35.0); MCHC 32.8 g/dL (32.0-36.0); MCV 83.1 fL (80-100); MPV 8.7 fL (7.6-11.3); Monocytes % 8.3 % (3.3-12.3); Neutrophils % 56.3 % (41.7-73.7); Nucleated Red Blood Cells % 0.5 % (0-0); Platelets 132 thou/uL (152-406); RBC Red Blood Cell Count 3.24 M/uL (3.86-4.86); Red Cell Distribution Width 20.2 % (12.1-15.2)
[2024-01-01 06:01] LABS: Albumin 2.2 g/dL (3.4-5.0); Anion Gap 7.7 mEq/L (5.0-15.0); Magnesium 1.8 mg/dL (1.6-2.4); Phosphorus 3.3 mg/dL (2.5-4.9); Potassium 3.7 mEq/L (3.5-5.1)
[2024-01-01 07:59] LABS: Platelet Estimate ADEQ; White Blood Cell Scan OK (OK)
[2024-01-01 08:00] LABS: Anisocytosis 1+; Blood Morphology Comment NOT SEEN (NOT SEEN); Burr Cells 1+
--- NOTE | 2024-01-01 10:41 | P.PN ---
Subjective Date of Service: 01/01/24 Chief Complaint: CVA Subjective: No new changes (responsive but does not like to be disturbed) <Mary Soto - Last Filed: 01/01/24 10:41> Date of Service: 01/01/24 <Carlos Osorio - Last Filed: 01/01/24 13:53> Review of Systems 10-point ROS is otherwise unremarkable General: Weakness, Malaise Neurological: Weakness <Candice Sotomegan Garces - Last Filed: 01/01/24 10:41> Physical Examination - Vital Signs Temperature: 97.6 F Blood Pressure: 143/57 Pulse: 64 Respirations: 20 Pulse Ox (%): 99 - Physical Exam General: Oriented x3, Obese HEENT: Atraumatic, Normocephalic Neck: Supple Respiratory: Normal air movement Cardiovascular: Regular rate/rhythm, Edema (pertibial 2+) Gastrointestinal: Normal bowel sounds Musculoskeletal: No clubbing Integumentary: Erythema (mild pretibial) Neurological: Normal speech, Abnormal tone, Abnormal affect Lymphatics: No axilla or inguinal lymphadenopathy External genitalia: Deferred Rectal: Deferred <Candice Sotomegan Garces - Last Filed: 01/01/24 10:41> Assessment And Plan - Plan Assessment and Plan - Plan CVA/TIA focal weakness right sided weakness Started on aspirin and statin Continue Eliquis CT CTA findings noted MRI brain ordered Monitor neuro vital signs Monitor under telemetry Neurology consult - Dr. Peres following. Abnormal EEG 12/31/23 History of A-fib status post ablation. Cardiac monitoring Chronic diastolic congestive heart failure Atrial fibrillation on chronic anticoagulation therapy S/P ablation History of CAD with previous CABG Severe pulmonary hypertension She had an ablation for A-fib in May Right heart catheterization by cardiology reported severe pulmonary hypertension. Last Echo showed normal ejection fraction with diastolic dysfunction RVSP of 70 Hypertension Hyperlipidemia Hypothyroidism Head CT negative Continue home medications. CAD Monitor closely on telemetry Continue home medications 01/01/24 H. pylori Quad therapy x 14 days GI/DVT prophylaxis Advanced directive full code Discharge Plan: Other (rehab) Plan to discharge in: 24 Hours - Code Status/Comfort Care Code Status Assessed: Yes (Full) Time Spent Managing PTS Care (In Minutes): 30 <Mary Soto - Last Filed: 01/01/24 10:41> - Plan Pt seen and examined. I agree with the note by the ELECTRONIC DATA INTERCHANGE SPECIALIST. Gastric sample is positive for H. pylori infection. Will start Quad therapy for 14 days. Continue physical therapy. Hgb is 8.8 s/p blood transfusion. Will monitor H/H. <Carlos Osorio - Last Filed: 01/01/24 13:53>
[2024-01-01] MEDS ORDERED: AMOXICILLIN TRIHYDR 250 MG CAP PO SCH (11:00)
[2024-01-01] MEDS ORDERED: metroNIDAZOLE 500 MG TABLET PO SCH ×2 (11:00→14:00)
[2024-01-01] MEDS ORDERED: CLARITHROMYCIN 500 MG TABLET PO SCH (11:00)
[2024-01-01] MEDS ORDERED: BISMUTH SUBSALICYL 262MG/15ML-240 ML BTL PO SCH (11:00)
[2024-01-01] MEDS ORDERED: DOXYCYCLINE 100 MG CAP PO SCH (11:00)
--- NOTE | 2024-01-01 12:47 | EKG ---
Test Date: 2023-12-28 Test Time: 19:36:50 Fulfillment Associate: RV MEASUREMENT RESULTS: Intervals: Rate: 74 [place]: QRSD: 94 QT: 426 QTc: 472 [place]: P: [place]: QRS: 89 T: 261 INTERPRETIVE STATEMENTS: Atrial fibrillation ST & T wave abnormality, consider anterior ischemia or digitalis effect Prolonged QT Abnormal ECG Compared to ECG 12/24/2023 18:11:14 Sinus rhythm no longer present ST (T wave) deviation still present Possible ischemia still present Electronically Signed On 01-01-24 12:43:56 CDT by Julio Rodriguez
[2024-01-01] MEDS ORDERED: ENOXAPARIN 40 MG/0.4 ML SQ SCH (17:00)
[2024-01-02] MEDS: AMOXICILLIN TRIHYDR 250 MG CAP PO SCH (09:00)
[2024-01-02] MEDS: CLARITHROMYCIN 500 MG TABLET PO SCH (09:00)
[2024-01-02] MEDS: metroNIDAZOLE 500 MG TABLET PO SCH (09:00)
--- NOTE | 2024-01-02 10:20 | P.DS ---
Admission Date: 12/24/23 Discharge Date: 01/02/24 Reason for Admission: CVA Consultations: Dr. Peres Procedures: Stomach biopsy during endoscopy Dr. Boyer Brief History of Present Illness: 73 yo female with past history of chronic diastolic congestive heart failure, paroxysmal atrial fibrillation status post ablation, chronic pain, hypertension, hyperlipidemia, hypothyroidism, CVA with residual weakness, seizure disorder who has been recently been admitted to the hospital in [place] for seizure versus CVA and has been discharged to rehab. Patient was assessed by the nursing staff and was sent over to the ER for abnormal behavior and generalized weakness. Patient is a poor historian hence most of the history is obtained from the chart review and also talking to the family member at the bedside. Denies any fall. No fever or chills. No nausea vomiting or diarrhea. Patient was assessed in the ER and was admitted for subacute CVA and further management and neurology consult . Last known normal was more than 12 hours and is out of TNK window and also patient is taking blood thinners for A-fib Hospital Course: Ms. Dey has some residual right upper and lower extremity weakness. Dr. Peres evaluated her and she had a EEG on 12/26/23 that showed a slow background with no epileptiform discharges. She was noted to be quite anemic, possibly secondary to Eliquis and aspirin use for known A-fib . The patient may benefit from a Watchman procedure when she is more stable. Dr. King took her for endoscopy and stomach biopsy. She received 2 units of blood on 12/30. 12/31 her path report came back positive for H. pylori and quad treatment was begun. She is a bit uncooperative, refuses medications, refuses cooperating with serial neuro exams. Dr. Peres states she may benefit from aggressive therapy on inpatient unit given the subacute strokes affecting her ability to communicate and to understand language easily. However, she is likely to become debilitated from being in the hospital over several days to now few weeks. She will be followed while in hospital. Ms. Dey was accepted at [facility] for SNF rehab. Her son and social work staff are discussing placement. <Mary Soto - Last Filed: 01/02/24 10:32> Admission Date: 12/24/23 Discharge Date: 01/02/24 Hospital Course: Pt seen and examined. I agree with the note by the DIE INSPECTOR. Pt is stable for transfer to [facility] for SNF rehab. Complate 2 weeks of Quad therapy and follow up aaron Boyer. <Oscar Osoriojam Calixto - Last Filed: 01/02/24 12:32> Disposition: TRANSFER TO SNF - REHAB Discharge Condition: GOOD Vital Signs/Physical Exam: Temp Pulse Resp BP Pulse Ox 99.3 F 59 18 149/58 H 99 01/02/24 08:00 01/02/24 08:00 01/02/24 08:00 01/02/24 08:00 01/02/24 08:00 General: Other (Poorly cooperative) HEENT: Atraumatic, Normocephalic Neck: Supple Respiratory: Normal air movement Cardiovascular: Irregular heart rate/rhythm Capillary refill: <2 Seconds Gastrointestinal: Soft and benign Musculoskeletal: No clubbing Integumentary: No rashes Neurological: Other (Right upper and lower extremity 4/5), Abnormal strength Lymphatics: No axilla or inguinal lymphadenopathy External genitalia: Deferred Rectal: Deferred Laboratory Data at Discharge: WBC 3.20 thou/uL (4.3-10.9) L 01/01/24 05:27 Hgb 8.8 g/dL (12.0-15.0) L D 01/01/24 05:27 Hct 27.0 % (36.0-45.0) L 01/01/24 05:27 Plt Count 132 thou/uL (152-406) L 01/01/24 05:27 PT 19.0 SECONDS (9.4-12.5) H 12/24/23 17:33 INR 1.72 12/24/23 17:33 APTT 36.4 SECONDS (24.3-36.9) 12/24/23 17:33 Sodium 144 mEq/L (136-145) 01/01/24 05:27 Potassium 3.7 mEq/L (3.5-5.1) 01/01/24 05:27 BUN 4 mg/dL (7-18) L 01/01/24 05:27 Creatinine 0.64 mg/dL (0.55-1.02) 01/01/24 05:27 Glucose 98 mg/dL (74-106) 01/01/24 05:27 Phosphorus 3.3 mg/dL (2.5-4.9) 01/01/24 05:27 Magnesium 1.8 mg/dL (1.6-2.4) 01/01/24 05:27 Total Bilirubin 1.3 mg/dL (0.2-1.0) H 12/28/23 20:05 AST 29 U/L (15-37) 12/28/23 20:05 ALT 35 U/L (13-56) 12/28/23 20:05 Alkaline Phosphatase 61 U/L (45-117) 12/28/23 20:05 LDL Cholesterol Direct 92 mg/dL (100-129) L 12/25/23 08:53 <Soto,Mary Dez - Last Filed: 01/02/24 10:32> Vital Signs/Physical Exam: Temp Pulse Resp BP Pulse Ox 99.3 F 59 18 149/58 H 99 01/02/24 08:00 01/02/24 08:00 01/02/24 08:00 01/02/24 08:00 01/02/24 08:00 Laboratory Data at Discharge: WBC 3.20 thou/uL (4.3-10.9) L 01/01/24 05:27 Hgb 8.8 g/dL (12.0-15.0) L D 01/01/24 05:27 Hct 27.0 % (36.0-45.0) L 01/01/24 05:27 Plt Count 132 thou/uL (152-406) L 01/01/24 05:27 PT 19.0 SECONDS (9.4-12.5) H 12/24/23 17:33 INR 1.72 12/24/23 17:33 APTT 36.4 SECONDS (24.3-36.9) 12/24/23 17:33 Sodium 144 mEq/L (136-145) 01/01/24 05:27 Potassium 3.7 mEq/L (3.5-5.1) 01/01/24 05:27 BUN 4 mg/dL (7-18) L 01/01/24 05:27 Creatinine 0.64 mg/dL (0.55-1.02) 01/01/24 05:27 Glucose 98 mg/dL (74-106) 01/01/24 05:27 Phosphorus 3.3 mg/dL (2.5-4.9) 01/01/24 05:27 Magnesium 1.8 mg/dL (1.6-2.4) 01/01/24 05:27 Total Bilirubin 1.3 mg/dL (0.2-1.0) H 12/28/23 20:05 AST 29 U/L (15-37) 12/28/23 20:05 ALT 35 U/L (13-56) 12/28/23 20:05 Alkaline Phosphatase 61 U/L (45-117) 12/28/23 20:05 LDL Cholesterol Direct 92 mg/dL (100-129) L 12/25/23 08:53 <Carlos Osorio - Last Filed: 01/02/24 12:32> Diet: AHA Activity: Fall precautions <Mary Soto - Last Filed: 01/02/24 10:32> <Carlos Osorio - Last Filed: 01/02/24 12:32> Home Medications: Amlodipine [Norvasc*] 10 mg PO DAILY 04/19/22 Apixaban [Eliquis] 5 mg PO BID 04/19/22 Duloxetine [Cymbalta *] 20 mg PO BEDTIME 04/19/22 Gabapentin [Neurontin] 800 mg PO BEDTIME PRN PRN 04/19/22 Levothyroxine [Synthroid*] 2 tab PO DAILY 04/19/22 Melatonin 5 mg PO BEDTIME PRN 04/19/22 Rosuvastatin Calcium [Crestor] 20 mg PO BEDTIME 04/19/22 Insulin 70/30 NPH/Reg Human [Novolin 70/30*] 30 unit SQ DAILY WITH BREAKFAST #10 ml 05/02/22 Aspirin 81 mg PO DAILY 05/13/22 Potassium Chloride [K-Dur] 20 meq PO BID 10 Days #20 tab 11/27/23 Spironolactone [Aldactone*] 50 mg PO DAILY 30 Days #60 tab 11/27/23 carvediloL [Coreg*] 12.5 mg PO BID 6AM 6PM 30 Days #60 tab 11/27/23 levETIRAcetam [Keppra] 500 mg PO BID 30 Days #60 tab 11/29/23 Cholecalciferol (Vitamin D3) [Dialyvite Vitamin D3 Max] 0.5 tab PO SEECOM 12/25/23 Ezetimibe [Zetia*] 10 mg PO DAILY 12/25/23 Zolpidem Tartrate [Ambien*] 10 mg PO BEDTIME PRN 12/25/23 traMADol HCL [Ultram*] 50 mg PO Q6HP PRN 12/25/23 Amoxicillin [Amoxil Cap*] 1,000 mg PO BID #112 cap 01/02/24 Clarithromycin [Biaxin] 500 mg PO BID #28 tab 01/02/24 Cyanocobalamin (Vitamin B-12) [Vitamin B12] 5,000 mcg PO DAILY 01/02/24 Ensure Max Protein 330 ml PO BID can 01/02/24 Furosemide [Lasix*] 20 mg PO DAILY #30 tab 01/02/24 Mv-Mn/Iron/Folic Acid/Herb 190 [Vitamin D3 Complete Caplet] 1 tab PO DAILY 01/02/24 Pantoprazole [Protonix Tab*] 40 mg PO BIDAC #28 tab 01/02/24 metroNIDAZOLE [Flagyl*] 500 mg PO BID #28 tab 01/02/24 New Medications: Amoxicillin [Amoxil Cap*] 1,000 mg PO BID #112 cap Clarithromycin [Biaxin] 500 mg PO BID #28 tab metroNIDAZOLE [Flagyl*] 500 mg PO BID #28 tab Furosemide [Lasix*] 20 mg PO DAILY #30 tab Pantoprazole [Protonix Tab*] 40 mg PO BIDAC #28 tab Physician Discharge Instructions: Ms. Dey has some residual right upper and lower extremity weakness. Dr. Valentín raya evaluated her and she had a EEG on 12/26/23 that showed a slow background with no epileptiform discharges. She was noted to be quite anemic, possibly secondary to Eliquis and aspirin use for known A-fib . The patient may benefit from a Watchman procedure when she is more stable. Dr. King took her for endoscopy and stomach biopsy. She received 2 units of blood on 12/30. 12/31 her path report came back positive for H. pylori and quad treatment was begun. She is a bit uncooperative, refuses medications, refuses cooperating with serial neuro exams. Dr. Peres states she may benefit from aggressive therapy on inpatient unit given the subacute strokes affecting her ability to communicate and to understand language easily. However, she is likely to become debilitated from being in the hospital over several days to now few weeks. She will be followed while in hospital. Ms. Dey was accepted at [facility] for SNF rehab. Her son and social work staff are discussing placement. Followup: Jemal Peres MD [ASSOCIATE-ACTIVE - CAN ADMIT] - Julio Rodriguez MD [ACTIVE - CAN ADMIT] - Yusef Zurita MD [Primary Care Provider] -
--- NOTE | 2024-01-02 14:38 | P.PN ---
Subjective Date of Service: 01/02/24 Chief Complaint: Anemia, CVA Subjective: Improving (Slowly improving with discharge to rehab planned for today.) Physical Examination - Vital Signs Temperature: 97.6 F Blood Pressure: 141/39 Pulse: 65 Respirations: 17 Pulse Ox (%): 100 Assessment And Plan - Current Problems (Diagnosis) (1) Congestive heart failure Current Visit: No Status: Acute Qualifiers: Heart failure type: diastolic Heart failure chronicity: acute on chronic Qualified Code(s): I50.33 - Acute on chronic diastolic (congestive) heart failure (2) Severe pulmonary hypertension Current Visit: No Status: Acute (3) Diabetes Current Visit: No Status: Chronic Qualifiers: Diabetes mellitus type: type 2 Diabetes mellitus shelter insulin use: with termite control technician use Diabetes mellitus complication status: with hyperglycemia Qualified Code(s): E11.65 - Type 2 diabetes mellitus with hyperglycemia; Z79.4 - detention (current) use of insulin (4) Hypertension Current Visit: No Status: Chronic Qualifiers: Hypertension type: primary hypertension Qualified Code(s): I10 - Essential (primary) hypertension - Plan REC: 1) Continue H&Hs and transfuse prn 2) consider colonoscopy once neurology deems stable to docolonoscopy off blood thinners 3) PPI
[2024-01-02] MEDS: ENOXAPARIN 40 MG/0.4 ML SQ SCH (17:00)
[2024-01-03 09:43] VITALS: O2SAT 98
[2024-01-03 12:19] VITALS: BP 177/87; TEMP 98.3
--- NOTE | 2024-01-03 14:09 | P.PN ---
Subjective Date of Service: 01/03/24 Chief Complaint: Anemia, CVA Continues to be uncooperative in taking medications, allowing neurochecks, evaluations <Mary Soto - Last Filed: 01/03/24 14:04> Date of Service: 01/03/24 <Carlos Osorio Durga - Last Filed: 01/03/24 22:16> Review of Systems 10-point ROS is otherwise unremarkable <Mary Soto - Last Filed: 01/03/24 14:04> Physical Examination - Vital Signs Temperature: 98.3 F Blood Pressure: 177/87 Pulse: 61 Respirations: 16 Pulse Ox (%): 99 - Physical Exam General: Alert, In no apparent distress, Other (pulls covers over her head when attempting assessment. Refuses meds) HEENT: Atraumatic, Normocephalic Neck: Supple Respiratory: Normal air movement Cardiovascular: Regular rate/rhythm, Normal S1 S2, Edema Capillary refill: <2 Seconds Gastrointestinal: Soft and benign Musculoskeletal: No clubbing Integumentary: Other (mild pretibial erythema to right lower leg) Neurological: Normal tone, Abnormal speech, Abnormal affect Lymphatics: No axilla or inguinal lymphadenopathy External genitalia: Deferred Rectal: Deferred <Mary Soto - Last Filed: 01/03/24 14:04> Assessment And Plan - Plan Assessment and Plan - Plan CVA/TIA focal weakness right sided weakness Started on aspirin and statin Continue Eliquis CT CTA findings noted MRI brain ordered Monitor neuro vital signs Monitor under telemetry Neurology consult - Dr. Peres following. Abnormal EEG 12/31/23 History of A-fib status post ablation. Cardiac monitoring Chronic diastolic congestive heart failure Atrial fibrillation on chronic anticoagulation therapy S/P ablation History of CAD with previous CABG Severe pulmonary hypertension She had an ablation for A-fib in May Right heart catheterization by cardiology reported severe pulmonary hypertension. Last Echo showed normal ejection fraction with diastolic dysfunction RVSP of 70 Hypertension Hyperlipidemia Hypothyroidism Head CT negative Continue home medications. CAD Monitor closely on telemetry Continue home medications 01/01/24 H. pylori Quad therapy x 14 days (01/02/24 right wade cellulitis) IPR clinical liason still deems Ms. Dey an appropriate candidate for IPR. Auth pending GI/DVT prophylaxis Advanced directive full code <Mary Soto - Last Filed: 01/03/24 14:04> - Plan Pt seen and examined. I agree with the note by the BASEBALL INSPECTOR. Waiting for rehab placement. Continue home meds for other chronic medical problems. <Carlos Osorio - Last Filed: 01/03/24 22:16>
== END 2024-01-03 14:46 | DRG 64 ==
LOC: ER 17:03 → ERHOLD 18:51 → 2ND 19:42
PROVIDERS: ADMIT Family Medicine; ATTEND Hospitalist
PROC: 0DB68ZX Excision of Stomach, Via Natural or Artificial Opening Endoscopic, Diagnostic (ICD-10-PCS; 2023-12-28)
PROC: 0DB78ZX Excision of Stomach, Pylorus, Via Natural or Artificial Opening Endoscopic, Diagnostic (ICD-10-PCS; 2023-12-28)
PROC: 02HV33Z Insertion of Infusion Device into Superior Vena Cava, Percutaneous Approach (ICD-10-PCS; 2023-12-28)
PROC: 30233N1 Transfusion of Nonautologous Red Blood Cells into Peripheral Vein, Percutaneous Approach (ICD-10-PCS; principal; 2023-12-28 15:30)
DX: I63.9 Cerebral infarction, unspecified (principal); G93.41 Metabolic encephalopathy; K29.01 Acute gastritis with bleeding; N18.6 End stage renal disease; I50.33 Acute on chronic diastolic (congestive) heart failure; D62 Acute posthemorrhagic anemia; I13.2 Hypertensive heart and chronic kidney disease with heart failure and with stage 5 chronic kidney disease, or end stage renal disease; I69.351 Hemiplegia and hemiparesis following cerebral infarction affecting right dominant side; E11.22 Type 2 diabetes mellitus with diabetic chronic kidney disease; D63.1 Anemia in chronic kidney disease; I48.0 Paroxysmal atrial fibrillation; E78.5 Hyperlipidemia, unspecified; E03.9 Hypothyroidism, unspecified; I27.20 Pulmonary hypertension, unspecified; K44.9 Diaphragmatic hernia without obstruction or gangrene; G40.909 Epilepsy, unspecified, not intractable, without status epilepticus; I25.10 Atherosclerotic heart disease of native coronary artery without angina pectoris; B96.81 Helicobacter pylori [H. pylori] as the cause of diseases classified elsewhere; R29.710 NIHSS score 10; Z79.4 Long term (current) use of insulin; Z95.1 Presence of aortocoronary bypass graft; Z79.52 Long term (current) use of systemic steroids; Z79.01 Long term (current) use of anticoagulants; Z79.890 Hormone replacement therapy; Z79.899 Other long term (current) drug therapy
CPT/HCPCS: 36415; 36430; 70450; 70496; 70498; 70551; 71045; 80048; 80053; 80069; 82140; 82565; 82607; 82947; 83540; 83605; 83735; 84100; 84132; 84484; 85014; 85018; 85025; 85044; 85610; 85730; 86850; 86900; 86901; 86920; 88305; 88312; 92523; 92526; 92610; 93005; 94760; 95816; 97112; 97116; 97161; 97530; 99285; J0171; J1200; J1650; J1815; J1940; J2470; J2704; J3475; J3480; J7030; J7040; J7042; J7050; P9016; Q9967

== ENCOUNTER 2024-01-03 13:30 | Inpatient (IN) | payer OTHER ==
[2024-01-03] MEDS ORDERED: ACETAMINOPHEN 325 MG TABLET PO PRN (15:40)
[2024-01-03] MEDS ORDERED: GABAPENTIN 300 MG CAP PO PRN (16:33)
[2024-01-03] MEDS ORDERED: GLUCAGON 1 MG/VIAL IM PRN (16:35)
[2024-01-03] MEDS ORDERED: ONDANSETRON 4 MG (ODT) TAB PO PRN (16:39)
[2024-01-03 16:57] VITALS: BMI 29.4
[2024-01-03] MEDS ORDERED: ENOXAPARIN 40 MG/0.4 ML SQ SCH (17:00)
[2024-01-03] MEDS: carvediloL 12.5 MG TAB PO SCH (17:26)
[2024-01-03] MEDS: CLARITHROMYCIN 500 MG TABLET PO SCH (20:00)
[2024-01-03] MEDS: DIVALPROEX DR 500MG TAB PO SCH (20:00)
[2024-01-03] MEDS: ENSURE MAX PROTEIN 330 ML LIQUID PO SCH (20:00)
[2024-01-03] MEDS: levETIRAcetam 500 MG TAB PO SCH (20:00)
[2024-01-03] MEDS: metroNIDAZOLE 500 MG TABLET PO SCH (20:00)
[2024-01-03] MEDS: AMOXICILLIN TRIHYDR 250 MG CAP PO SCH (20:00)
[2024-01-03] MEDS: D10W 250 ML BAG IV PRN (20:43)
[2024-01-03] MEDS: ENOXAPARIN 40 MG/0.4 ML SQ SCH (20:49)
[2024-01-03] MEDS: INSULIN REGULAR (HUMAN) 100 UNIT/ML SQ SCH (20:56)
[2024-01-03] MEDS: ROSUVASTATIN 10 MG TAB PO SCH (21:00)
[2024-01-03] MEDS: DULOXETINE 20 MG CAP PO SCH (21:00)
[2024-01-04 04:43] LABS: Absolute Basophils 0.1 K/uL (0-0.5); Absolute Eosinophils 0.2 K/uL (0-0.5); Absolute Lymphocytes (CBC) 0.8 K/uL (0.7-4.9); Absolute Monocytes 0.5 K/uL (0.1-1.3); Absolute Neutrophil 1.9 K/uL (1.8-8.0); Basophils % 2.2 % (0-1.3); Eosinophils % 5.4 % (0-4.4); Hematocrit 28.4 % (36.0-45.0); Hemoglobin 9.2 g/dL (12.0-15.0); Lymphocytes % 22.1 % (15.3-44.8); MCH 26.7 pg (27.0-35.0); MCHC 32.5 g/dL (32.0-36.0); MCV 82.2 fL (80-100); MPV 9.1 fL (7.6-11.3); Monocytes % 15.2 % (3.3-12.3); Neutrophils % 55.1 % (41.7-73.7); Nucleated Red Blood Cells % 0.1 % (0-0); Platelets 119 thou/uL (152-406); RBC Red Blood Cell Count 3.46 M/uL (3.86-4.86); Red Cell Distribution Width 20.2 % (12.1-15.2)
[2024-01-04 04:58] LABS: Albumin 2.2 g/dL (3.4-5.0); Anion Gap 8.1 mEq/L (5.0-15.0); Magnesium 1.6 mg/dL (1.6-2.4); Potassium 3.1 mEq/L (3.5-5.1); Prealbumin 9.2 mg/dL (20-40)
[2024-01-04 05:14] LABS: Anisocytosis 1+; Blood Morphology Comment NOTED (NOT SEEN); Microcytosis SLIGHT; Platelet Estimate ADEQ; Polychromasia SLIGHT; White Blood Cell Scan OK (OK)
[2024-01-04] MEDS: KCL 20 MEQ/100 mL IVPB 20 MEQ/100 ML BAG IV SCH (05:33)
[2024-01-04] MEDS: LEVOTHYROXINE SOD 0.125 MG TAB PO SCH (06:30)
[2024-01-04] MEDS: PANTOPRAZOLE 40MG TABLET PO SCH (07:05)
[2024-01-04] MEDS: FUROSEMIDE 20 MG TABLET PO SCH (08:00)
[2024-01-04] MEDS: CYANOCOBALAMIN 1,000 MCG TAB PO SCH (08:00)
[2024-01-04] MEDS: AMLODIPINE 10 MG TAB PO SCH (08:00)
[2024-01-04] MEDS: INSULIN 70/30 100 UNITS/ML SQ SCH ×2 (08:00→08:56)
[2024-01-04] MEDS: ASPIRIN EC 81 MG TAB PO SCH (08:00)
[2024-01-04] MEDS: D5W 1,000 ML with POTASSIUM CL 20 MEQ IV SCH (08:27)
[2024-01-04] MEDS: POTASSIUM CL SA 10 MEQ TAB PO SCH (12:18)
--- NOTE | 2024-01-04 13:47 | P.RH.PN ---
Estimated Length of Stay: 12 Expected Discharge Date: 01/15/24 Discharge Disposition Plan: Home Family Support: Yes Assisted Goal: Mobility, Transfers, Self Care Vital Signs: Last Vital Signs Temp 98.2 F 01/04/24 06:35 Pulse 60 01/04/24 06:35 Resp 18 01/04/24 06:35 BP 140/65 01/04/24 06:35 Pulse Ox 96 01/04/24 06:35 Laboratory: Laboratory Last Values WBC 3.40 thou/uL (4.3-10.9) L 01/04/24 04:15 RBC 3.46 M/uL (3.86-4.86) L 01/04/24 04:15 Hgb 9.2 g/dL (12.0-15.0) L 01/04/24 04:15 Hct 28.4 % (36.0-45.0) L 01/04/24 04:15 MCV 82.2 fL (80-100) 01/04/24 04:15 MCH 26.7 pg (27.0-35.0) L 01/04/24 04:15 MCHC 32.5 g/dL (32.0-36.0) 01/04/24 04:15 RDW 20.2 % (12.1-15.2) H 01/04/24 04:15 Plt Count 119 thou/uL (152-406) L 01/04/24 04:15 MPV 9.1 fL (7.6-11.3) 01/04/24 04:15 Neutrophils % 55.1 % (41.7-73.7) 01/04/24 04:15 Lymphocytes % 22.1 % (15.3-44.8) 01/04/24 04:15 Monocytes % 15.2 % (3.3-12.3) H 01/04/24 04:15 Eosinophils % 5.4 % (0-4.4) H 01/04/24 04:15 Basophils % 2.2 % (0-1.3) H 01/04/24 04:15 Absolute Neutrophils 1.9 K/uL (1.8-8.0) 01/04/24 04:15 Absolute Lymphocytes 0.8 K/uL (0.7-4.9) 01/04/24 04:15 Absolute Monocytes 0.5 K/uL (0.1-1.3) 01/04/24 04:15 Absolute Eosinophils 0.2 K/uL (0-0.5) 01/04/24 04:15 Absolute Basophils 0.1 K/uL (0-0.5) 01/04/24 04:15 Platelet Estimate Adeq 01/04/24 04:15 Polychromasia Slight 01/04/24 04:15 Anisocytosis 1+ 01/04/24 04:15 Microcytosis Slight 01/04/24 04:15 Morphology Comment Noted (NOT SEEN) 01/04/24 04:15 Sodium 142 mEq/L (136-145) 01/04/24 04:15 Potassium 3.1 mEq/L (3.5-5.1) L 01/04/24 04:15 Chloride 110 mEq/L (98-107) H 01/04/24 04:15 Carbon Dioxide 27 mEq/L (21-32) 01/04/24 04:15 Anion Gap 8.1 mEq/L (5.0-15.0) 01/04/24 04:15 BUN 5 mg/dL (7-18) L 01/04/24 04:15 Creatinine 0.58 mg/dL (0.55-1.02) 01/04/24 04:15 Est GFR (CKD-EPI) 96 ml/min (=/>90) 01/04/24 04:15 Glucose 85 mg/dL (74-106) 01/04/24 04:15 POC Glucose 92 mg/dL (65-120) 01/04/24 11:47 Calcium 8.9 mg/dL (8.5-10.1) 01/04/24 04:15 Magnesium 1.6 mg/dL (1.6-2.4) 01/04/24 04:15 Albumin 2.2 g/dL (3.4-5.0) L 01/04/24 04:15 Prealbumin 9.2 mg/dL (20-40) L 01/04/24 04:15 Smear Scan Ok (OK) 01/04/24 04:15 Weight: 161 lb Physician Update: Low potassium of 3.1. On iv and oral potassium. Did fair with with physical therapy with low heart rate. Walked 10' and push wheelchair 20' ambulation. Max assist with occupational therapy. Will start seroquel. Summary: Patient's care plan and prison goals have been reviewed and revised as necessary. Please see the Rehabilitation Signature page for all necessary signatures.
--- NOTE | 2024-01-04 14:35 | EKG ---
Test Date: 2024-01-04 Test Time: 11:34:31 Pressurised Container Filler: HECTOR MEASUREMENT RESULTS: Intervals: Rate: 56 MD: QRSD: 80 QT: 500 QTc: 482 [place]: P: MD: QRS: 82 T: 155 INTERPRETIVE STATEMENTS: Junctional rhythm Possible Right ventricular hypertrophy Marked ST abnormality, possible inferolateral subendocardial injury Abnormal ECG Compared to ECG 12/28/2023 19:36:50 Junctional rhythm now present Atrial fibrillation no longer present Possible ischemia no longer present Prolonged QT interval no longer present ST (T wave) deviation still present Electronically Signed On 01-04-24 14:35:23 CDT by Julio Rodriguez
[2024-01-04] MEDS: MELATONIN 5 MG TABLET PO PRN (21:52)
--- NOTE | 2024-01-04 22:00 | HP ---
Date of Admission: 01/03/2024 Time Of Service: 9:00 a.m. Chief Complaint: Diffuse weakness and some confusion. History Of Present Illness: Ms. 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 She has had diffuse weakness of upper and lower extremities and confusion with metabolic encephalopathy, congestive heart failure, hypertension, coronary artery disease, diabetes. At [facility], nursing staff noted that she had some worsening weakness and more unusual abnormal behavior and confusion and was brought to [facility]. Sh howard did have marked hypokalemia. Potassium had been down to 2.9. She was on Lasix, which potentially could have been the etiology. Potassium has been replaced. She had a CT scan of the head showing no acute abnormalities, but areas of diminished density from previous infarcts in different vascular te rritories. 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 There were no other large vessel occlusion or flow-limiting abnormalities identi fied. Her brain MRI on 12/24 showed small foci of diffusion restriction along the centrum semiovale bilaterally in the frontal parietal subcortical white matter, more so on the right and in the spleniu m of the corpus callosum bilaterally suggesting a late acute to subacute ischemia. Given the multidi stribution involvement of stroke right, left, front, and back, the most likely etiology is felt to be cardioembolic and an additional etiology was possibly watershed infarcts. She did have an EKG, whic h showed normal sinus rhythm. There were ST-segment wave abnormalities, consider inferior infarct, a nd prolonged QT was noted on EKG on 12/24/2023. An EKG from 12/01/[address] deviation still pre sent, possible ischemia, but there was normal sinus rhythm present. Additional EKG on 12/28/2023 anshul wed atrial fibrillation with ST and T-wave abnormalities and the EEG identified mild abnormalities du e to a mildly slow background consistent with a mild diffuse disturbance in cerebral function. An EG D on 12/27 showed a small hiatal hernia without obstruction. Mild patchy acute superficial gastritis seen. There were 2 cold forceps biopsies taken from the body and the antrum. She did have electrol yte replacement as noted and was evaluated by physical therapy and speech therapy service and determi jill that she required min to mod assist for daily activities, for bed mobilization, for ambulation of about 30 feet and there was oral dysphagia where she required small bites and thickened liquids woul d require additional swallow evaluation and management to improve to a more solid consistency diet. As she had her medical conditions managed stably, it was determined that she would be a great vane te for aggressive inpatient rehabilitation, was therefore admitted to the rehabilitation unit for phy sical, occupational, and speech therapy. Past Medical History: Diabetes mellitus type 2; hypertension; atrial fibrillation, on anticoagulatio n; coronary artery disease; coronary artery bypass grafting. She does have a diastolic congestive he art failure, kidney failure, stroke with right-sided weakness, but there was also diffuse involvement as noted above. Sleep apnea with CPAP. Past Surgical History: Triple cardiac bypass 2002, carotid stent 2002, cholecystectomy 2002, femoral -popliteal bypass 2006, atrial ablation, and carotid endarterectomy. Allergies: NO KNOWN DRUG ALLERGIES. Current Medications: Tylenol 650 every 4 hours as needed, Norvasc 10 mg daily, amoxicillin 1000 mg t wice daily, aspirin 81 mg daily, Coreg 12.5 mg twice daily, Biaxin 500 mg twice daily, vitamin B12 10 00 mcg daily. She is receiving potassium 20 mEq in 1 L of normal saline as she has hypokalemia again of 3.1 on blood work. She has duloxetine 20 mg daily, Lovenox 40 mg subcutaneously daily, gabapenti n 600 mg at bedtime, insulin 70/30 10 units at breakfast, Keppra 500 mg twice daily, Synthroid ____ mg daily, melatonin 10 mg at bedtime, Flagyl 500 mg twice daily, Zofran 4 mg every 6 hours as ne eded, Protonix 40 mg twice daily, and potassium orally 10 mEq daily, Ensure Max Protein 330 mL twice daily, Crestor 20 mg daily, and Aldactone 25 mg daily. Lasix was discontinued as she has had recurre nt episodes of hypokalemia. Family History: Noncontributory. Social History: No alcohol, tobacco, or IV drug use. Review of Systems: Discussed with . She had had some behavioral issues, refusing to take medications and will tu rn away, but at the time I evaluated the patient, she was in agreement to take all of her medicines. She did follow all commands appropriately, and she will be cooperative with the therapy and taking h er medications and otherwise systems review was negative. Current Level Of Functioning: Supervision for eating. Setup assistance for oral hygiene. Toileting moderate assistance. Showering, upper body dressing, lower body dressing, donning and doffing footw ear, all moderate assistance. Rolling [id number], lying to sitting, sitting on the side of bed, s it to stand, and transfer from bed to chair and to toilet all moderate assistance. Ambulation, she c overed 30 feet with moderate assistance. Physical Examination: Vital Signs: Blood pressure is 140/65, pulse 60, respiratory rate 18, temperature 98.2, oxygen satur ation 96%. Weight 161 pounds, height 5 feet 2 inches, BMI 29.4. General: Ms. Dey is resting in a chair. She is doing therapy. She is mildly sleepy, but is eas nimco arousable and follows commands and is oriented to her name, to situation and follows commands carolina ropriately. HEENT: She appears normocephalic, atraumatic. Sclerae anicteric. Oropharynx moist. Neck: Supple. Chest: Clear. Heart: Regular. Extremities: No significant edema, cyanosis, or clubbing. Neurological: Diffuse weakness in upper and lower extremities, more proximally than distally, consis tent with a myopathic pattern related to potentially her CHF and hospitalization that is extended per iod. Reflexes symmetric. Sensation, stocking-glove loss. Coordination, slow and intact. Laboratory Studies: White blood cell count 3.4, hemoglobin 9.2, platelets 119. Sodium 142, potassiu m 3.1, chloride 110, carbon dioxide 27, BUN 5, creatinine 0.58, glucose 85 up to 131, calcium 8.9. M agnesium 1.6. Albumin 2.9, prealbumin 9.2. Urinalysis is pending. Assessment: Ms. Dey is admitted to the inpatient rehabilitation unit with impairment category 01 stroke. Her impairment group code is 01.3, bilateral involvement. Etiologic diagnosis: Cardioembo lic strokes. Her comorbidities are coronary artery disease, chronic pain, decreased mobility, decrea sed physical functioning, diastolic congestive heart failure, dyslipidemia, dysphagia, expressive aph obdulio, hypertension, hypothyroidism, paroxysmal atrial fibrillation, pulmonary hypertension and again hypokalemia. Plan: She will have physical, occupational, and speech therapy for 3.5 hours, 5 of 7 days. Her pota ssium is now being adjusted as noted above. She has oral potassium. She is having IV at this point. Her electrolytes will be repeated at the end of today. She will continue with aggressive managemen t of hypertension and diabetes mellitus. Her fluid management will be aldactone instead of Lasix. H er Protonix for GE reflux. She does have Depakote for mood control, Novolin insulin 70/30 10 units a t breakfast, Keppra for seizure control. Continue aspirin and Lovenox for DVT and stroke risk reduct ion. Amoxicillin continued for urinary tract infection. Prior to arriving on the unit, Coreg has be en decreased to 12.5 mg twice daily to avoid hypotensive episodes. She has Tylenol for pain and will have as needed Milk of Magnesia or Senokot for constipation and melatonin for insomnia. Comorbidities That Are Impacting Rehabilitation: Currently, the hypokalemia has been a repeat issue as noted from prior to coming to the unit. The patient is scheduled on potassium now, will have some potassium-sparing diuretic added. Also, there have been some behavioral issues and refusing to take medications. The patient is in agreement. May involve Psychiatry if need be to help with managemen t. Otherwise, she has had atrial fibrillation and risk of stroke. She has the Lovenox and aspirin i n place. May consider switching to the Eliquis 5 mg twice daily. However, there is possibility of a GI bleed and so currently on Lovenox and aspirin. Rehab Specific Plan: Ms. Dey will have physical, occupational, speech therapy 3.5 hours, 5 of 7 days to improve her ability to transfer from bed to chair, to wheelchair, to a toilet and to perform toileting and showering, in addition to performing activities of daily living and performing all cogn itive functioning. Ms. Dey and her have good understanding of the process of admission to the inpatient reha bilitation facility and how she will benefit from physical, occupational, and speech therapy. She wi ll have 24 hours a day, 7 days a week skilled rehabilitation nursing, daily physician evaluation and management for integrating her physical therapy and her medical management. She will have social ser vices evaluation and management of discharge planning, home equipment, followup, and for therapy to b e continued by either Home Health, which may be the case more than the chance of outpatient. In zenobia tion, help from the hospitalist service, cardiology service, infectious disease service may be consul brittaney. Barriers To Discharge: At this point, the patient does have some behavioral issues in the past and h as not been cooperative while at her [facility] and may prolong her stay in the acut e care unit. However, if need be again, Psychiatry will be involved to help with behavior modificati ons. Length Of Stay: About 12 days. Disposition: Back to her [facility] where she was residing. Prognosis: Fair. Rehab Goals: 1.Become independent with upper and lower body dressing, donning and doffing footwear. 2.Independent with ambulation of 250 feet with rolling walker. 3.Propel a wheelchair 250 feet. 4.Go up and down 10 steps with bilateral handrails independently. 5.Perform cognitive functioning as independently as possible. The above goals were reviewed with Ms. Dey and her and they are in agreement. By signing this document, I acknowledge I personally performed a full physical examination on Ms. Chan rnalberto no later than 24 hours after her admission to the inpatient rehabilitation facility and [facility] ed that she is able to tolerate the above course of treatment at an intensive level for reasonable pe riod of time. A detailed individualized plan of care for her will be completed by hospital day 4 bas ed on the preadmission screen, history and physical, and therapy evaluations. LESLIE Voice ID: [id number]
[2024-01-05 05:20] LABS: Albumin 2.2 g/dL (3.4-5.0); Albumin/Globulin Ratio 0.8 (1.1-1.8); Anion Gap 7.4 mEq/L (5.0-15.0); Bilirubin Total 1.2 mg/dL (0.2-1.0); Globulin 2.7 g/dL (2.3-3.5); Potassium 3.4 mEq/L (3.5-5.1); Protein, Total 4.9 g/dL (6.4-8.2)
[2024-01-05] MEDS: SPIRONOLACTONE 25 MG TABLET PO SCH (07:58)
[2024-01-05 11:25] VITALS: BP 142/62; TEMP 97.8
[2024-01-16] MEDS ORDERED: QUETIAPINE 25 MG TAB PO SCH (21:00)
== END 2024-01-05 15:55 | disposition hospice, home (50) | DRG 57 ==
LOC: 5TH 14:43
PROVIDERS: ADMIT Psychiatry & Neurology Neurology with Special Qualifications in Child Neurology; ATTEND Psychiatry & Neurology Neurology with Special Qualifications in Child Neurology
DX: I69.391 Dysphagia following cerebral infarction (principal); I50.30 Unspecified diastolic (congestive) heart failure; I69.320 Aphasia following cerebral infarction; I25.10 Atherosclerotic heart disease of native coronary artery without angina pectoris; G89.29 Other chronic pain; I11.0 Hypertensive heart disease with heart failure; E78.5 Hyperlipidemia, unspecified; E03.9 Hypothyroidism, unspecified; I48.0 Paroxysmal atrial fibrillation; I27.20 Pulmonary hypertension, unspecified; E87.6 Hypokalemia; E11.9 Type 2 diabetes mellitus without complications; G47.00 Insomnia, unspecified; K59.00 Constipation, unspecified
CPT/HCPCS: 36415; 80048; 80053; 82040; 82947; 83735; 84134; 85025; 92507; 92523; 93005; 97116; 97163; 97165; 97530; 97542; J1650; J3480